=== PATIENT | female | born 1945 | race Caucasian/White ===

== ENCOUNTER → 2016-10-31 | Outpatient (CLI) | payer OTHER ==
[~2016-10-31] MED LIST: AMLO-114 PO; ASPCH81X PO; ATEN50TA8 PO; ATOR-22 PO; CHOL20009 PO; FRS/40 PO; GABA-113 PO; GLIP-197 PO; LISI10TA PO; LORA-741 PO; MELO15TA4 PO; PRLSR20 PO; SITA25TA PO
--- NOTE | 2016-10-31 15:37 | MAMMOGRAPHY REPORT ---
BILATERAL DIGITAL SCREENING MAMMOGRAM WITH CAD: 10/31/2016 CLINICAL HISTORY: Routine screening. Patient has no complaints. TECHNIQUE: Current study was also evaluated with a Computer Aided Detection (CAD) system. Bilateral CC and MLO views were obtained. COMPARISON: Comparison is made to exams dated: 10/31/2015 mammogram, 10/28/2014 mammogram, 10/26/2013 lelia mogram, 10/24/2012 mammogram, 05/08/2012 specimen, and 05/08/2012 localization - [facility]ter. BREAST COMPOSITION: There are scattered areas of fibroglandular density in both breasts. FINDINGS: No suspicious masses, calcifications, or areas of architectural distortion are noted in ei ther breast. There has been no significant interval change compared to prior exams. IMPRESSION: ACR BI-RADS CATEGORY 1: NEGATIVE There is no mammographic evidence of malignancy. A 1 year screening mammogram is recommended. The pa tient will receive written notification of the results. Approximately 10% of breast cancers are not detected with mammography. A negative mammographic report should not delay biopsy if a clinically suggestive mass is present. Sunitha Sellers M.D. /:10/31/2016 10:28:51 Carbide Tool Die Maker: Indira MERCADO)(Cat), letter sent: Normal 1/2 BI-RADS Code: ACR BI-RADS Category 1: Negative
== END | disposition home or self-care (01) ==
LOC: C.MAMM 09:59
PROVIDERS: ATTEND Internal Medicine
DX: Z12.31 Encounter for screening mammogram for malignant neoplasm of breast (principal)

== ENCOUNTER → 2016-11-06 | Day surgery (SDC) | payer OTHER ==
[2016-10-29 10:03] VITALS: Ht 160 cm; Wt 122.7 kg
[~2016-11-06] VITALS: Ht 160 cm; Wt 122.7 kg
[~2016-11-06] MED LIST changes: +LIDOCAINE HCL 2% 2 ML VIAL (20MG/ML) ONE; +ONDANSETRON INJ 2 MG/ML 2 ML VIAL ONE; +PROPOFOL IV EMULSION 10 MG/ML 20 ML VIAL IV ONE; +SODIUM CHLORIDE 0.9% 500ML 500 ML IV ONE
[2016-11-06 08:57] VITALS: TEMP 36.5
--- NOTE | 2016-11-06 09:28 | Endo History and Physical ---
History & Physical Date of Service: Nov 06, 2016. Chief Complaint: Screening Referring Physician: Dr.Manisha Foreman History of Present Illness patient for screening colonoscopy Past Medical History Diabetes, Arthritis, Anxiety, High Cholesterol, Hypertension Past Surgical History Hx Cardiac Surgery: Yes (CARDIAC CATH-NO STENTS) Hx Abdominal Surgery: Yes (NOMI, TUBAL LIGATION) Hx Post-Op Nausea and Vomiting: Yes (SEVERE NAUSEA) Hx Cancer Surgery: No Hx Thoracic Surgery: No Hx Orthopedic: Yes (RT WRIST CYST REMOVAL, LEFT KNEE ARTHROSCOPY) Hx Urinary Tract Surgery: Yes (BILATERAL KIDNEY STENTS ) Family History Colon CA Social History Smoking Status: Never Smoker Hx Substance Use: No Hx Alcohol Use: No Allergies Coded Allergies: Allopurinol (Unverified Allergy, Mild, RASH, 10/29/16) Penicillins (Unverified Allergy, Mild, HIVES, 10/29/16) Sulfamethoxazole w/Trimethoprim (Verified Allergy, Unknown, ANXIETY AND HALLUCINATION, 10/29/16) Current Medications Reported Home Medications Medications Dose Route/Sig Max Daily Dose Days Date Category Vitamin D (Cholecalciferol) 2,000 Unit Tab 1 Tab PO QAM 10/29/16 Reported Aspirin Chewable (Aspirin) 81 Mg Chew 81 Mg PO HS 10/29/16 Reported Prilosec (Omeprazole) 20 Mg Capcr 20 Mg PO DAILY PRN 10/29/16 Reported Norvasc (Amlodipine Besylate) 10 Mg Tab 10 Mg PO QAM 10/29/16 Reported Mobic (Meloxicam) 15 Mg Tab 15 Mg PO DAILY PRN 10/29/16 Reported Lasix (Furosemide) 40 Mg Tab 1.5 Tab PO QAM 10/29/16 Reported Prinivil (Lisinopril) 10 Mg Tab 10 Mg PO QAM 10/29/16 Reported Tenormin (Atenolol) 50 Mg Tab 1.5 Tab PO QAM 10/29/16 Reported Ativan (Lorazepam) 0.5 Mg Tab 0.5 Mg PO DAILY PRN 10/29/16 Reported Glipizide Er (Glipizide) 5 Mg Tab 1 Tab PO QAM 90 10/29/16 Reported Januvia (Sitagliptin) 25 Mg Tab 25 Mg PO QAM 10/29/16 Reported Lipitor (Atorvastatin Calcium) 20 Mg Tab 20 Mg PO HS 10/29/16 Reported Neurontin (Gabapentin) 300 Mg Cap 300 Mg PO TID 10/29/16 Reported Vital Signs Weight (Kilograms): 122.73 Height (Feet): 5 Height (Inches): 3 Date Time Temp Pulse Resp B/P (MAP) Pulse Ox O2 Delivery O2 Flow Rate FiO2 11/06/16 08:57 36.5 56 18 155/64 (94) 96 Room Air Physical Exam General Appearance: no apparent distress Respiratory/Chest: Auscultation: breath sounds normal Cardiovascular: Heart Auscultation: RRR Abdomen: Inspection & Palpation: soft, no tenderness, guarding & rebound Assessment and Plan stable for colonoscopy
--- NOTE | 2016-11-06 09:53 | Discharge Instructions ---
Endoscopy Patient Instructions Date / Procedure(s) Performed Nov 06, 2016. Colonoscopy Allergy Information Coded Allergies: Allopurinol (Unverified Allergy, Mild, RASH, 10/29/16) Penicillins (Unverified Allergy, Mild, HIVES, 10/29/16) Sulfamethoxazole w/Trimethoprim (Verified Allergy, Unknown, ANXIETY AND HALLUCINATION, 10/29/16) Discharge Date / Findings Nov 06, 2016. diverticulosis Provider Instructions Activity Restrictions - No exercising or heavy lifting for 24 hours. - Do not drink alcohol the day of the procedure. - Do not drive a car or operate machinery until the day after the procedure. - Do not make any important decisions or sign important papers in 24 hours after the procedure. Following Day: - Return to full activity which may include returning to work/school. Diet Start your diet with liquids and light foods (jello, soup, juice, toast). Then eat your usual diet if not nauseated. Treatment For Common After Affects For mild abdominal pain, bloating, or excessive gas: - Rest - Eat lightly - Lie on right side Follow-Up Information Follow-up with Dr.Manisha Foreman as scheduled Anesthesia Information What You Should Know You have had a procedure that required some medicine to reduce anxiety and discomfort. This treatment is called moderate sedation. After receiving the treatment, you may be sleepy, but you will be able to breathe on your own. The effects of the treatment may last for several hours. Follow these instructions along with Activity/Diet recommendations noted above: * Do NOT do anything where dizziness or clumsiness would be dangerous. * Rest quietly at home today, then you can be up and about tomorrow. * Have a responsible person stay with you the rest of today. * You may have had an I.V. today. If so, you may take the dressing off later today. Recommendations Call your doctor if: * Trouble breathing * Continuous vomiting for more than 24 hours * Temperature above 101 degrees * Severe abdominal pain or bloating * Pain not relieved by pain medicine ordered * There is increased drainage or redness from any incision * A large amount of rectal bleeding greater than 2-3 tablespoons. (If you had a polyp/s removed or have hemorrhoids, a small amount of blood - from the rectum is to be expected.) * You have any unanswered questions or concerns. IN THE EVENT OF A SERIOUS EMERGENCY, GO TO THE NEAREST EMERGENCY ROOM Your discharge instructions were prepared by provider Scott Tucker. Patient Instructions Signature Page Makenna Escobar Patient (or Guardian) Signature/Date: I have read and understand the instructions given to me by my caregivers. Caregiver/RN/Doctor Signature/Date: The above-named patient and/or guardian has received patient instructions on this date. + Original Patient Signature Page (only) stays with chart. Please make copy for patient.
--- NOTE | 2016-11-06 09:57 | GI REPORT ---
Procedure Date: 11/06/2016 9:29 AM Procedure: Colonoscopy Indications: Screening for colorectal malignant neoplasm Medicines: See the Anesthesia note for documentation of the administered medications Complications: No immediate complications. Estimated Blood Loss: Estimated blood loss: none. Procedure: Pre-Anesthesia Assessment: - Prior to the procedure, a History and Physical was performed, and patient medications, allergies and sensitivities were reviewed. The patient's tolerance of previous anesthesia was reviewed. - The risks and benefits of the procedure and the sedation options and risks were discussed with the patient. All questions were answered and informed consent was obtained. - Patient identification and proposed procedure were verified prior to the procedure by the physician and the nurse. The procedure was verified in the pre-procedure area. - Pre-procedure physical examination revealed no contraindications to sedation. - After reviewing the risks and benefits, the patient was deemed in satisfactory condition to undergo the procedure. After I obtained informed consent, the scope was passed under direct vision. Throughout the procedure, the patient's blood pressure, pulse, and oxygen saturations were monitored continuously. The scope was introduced through the anus and advanced to the cecum, identified by appendiceal orifice and ileocecal valve. The colonoscopy was performed without difficulty. The patient tolerated the procedure well. The quality of the bowel preparation was good. Findings: The perianal and digital rectal examinations were normal. Multiple small-mouthed diverticula were found in the sigmoid colon and in the descending colon. The exam was otherwise without abnormality on direct and retroflexion views. Impression: - Diverticulosis in the sigmoid colon and in the descending colon. - The examination was otherwise normal on direct and retroflexion views. - No specimens collected. Recommendation: - Repeat colonoscopy in 10 years for screening purposes. - Discharge patient to home. Scott Tucker M.D. Scott Tucker MD 11/06/2016 9:56:03 AM This report has been signed electronically. Note Initiated On: 11/06/2016 9:29 AM I attest to the content of the Intraoperative Record and orders documented therein, exceptions below
--- NOTE | 2016-11-06 10:15 | Anesthesiology Progress Note ---
Anesthesia Post Op Note Date & Time Nov 06, 2016 at 10:15 Vital Signs Pain Intensity: 0 Vital Signs Past 12 Hours Date Time Temp Pulse Resp B/P (MAP) Pulse Ox O2 Delivery O2 Flow Rate FiO2 11/06/16 10:10 46 18 161/64 (96) 95 Room Air 11/06/16 09:55 45 20 121/53 (75) 96 Room Air 11/06/16 08:57 36.5 56 18 155/64 (94) 96 Room Air Notes Mental Status: alert / awake / arousable, participated in evaluation Pt Amnestic to Procedure: Yes Nausea / Vomiting: adequately controlled Pain: adequately controlled Airway Patency, RR, SpO2: stable & adequate BP & HR: stable & adequate Hydration State: stable & adequate Anesthetic Complications: no major complications apparent
[2016-11-06 10:25] VITALS: BP 142/68; PULSE 45; O2SAT 96
== END | disposition home or self-care (01) ==
LOC: C.GI 08:33
PROVIDERS: ATTEND Internal Medicine Gastroenterology
DX: Z12.11 Encounter for screening for malignant neoplasm of colon (principal); K57.30 Diverticulosis of large intestine without perforation or abscess without bleeding; I10 Essential (primary) hypertension; E78.00 Pure hypercholesterolemia, unspecified; E11.9 Type 2 diabetes mellitus without complications; F41.9 Anxiety disorder, unspecified; Z80.0 Family history of malignant neoplasm of digestive organs; Z79.82 Long term (current) use of aspirin; Z79.899 Other long term (current) drug therapy

== ENCOUNTER → 2017-11-12 | Outpatient (CLI) | payer OTHER ==
[~2017-11-12] MED LIST changes: +ACET-1311 PO; -AMLO-114 PO; +AMLO10TA3 PO; -ATEN50TA8 PO; +CALC0.2510 PO; -FRS/40 PO; -LIDOCAINE HCL 2% 2 ML VIAL (20MG/ML) ONE; +LSX20 PO; +MELO-84 PO; -MELO15TA4 PO; -ONDANSETRON INJ 2 MG/ML 2 ML VIAL ONE; -PROPOFOL IV EMULSION 10 MG/ML 20 ML VIAL IV ONE; -SODIUM CHLORIDE 0.9% 500ML 500 ML IV ONE; +TPRSR50 PO
--- NOTE | 2017-11-14 07:54 | MAMMOGRAPHY REPORT ---
BILATERAL DIGITAL SCREENING MAMMOGRAM TOMOSYNTHESIS WITH CAD: 11/12/2017 CLINICAL HISTORY: Routine screening. Patient has no complaints. TECHNIQUE: The study was acquired using full field digital technology and interpreted from soft copy. Breast tomosynthesis in addition to standard 2D mammography was performed. Current study was also ev aluated with a Computer Aided Detection (CAD) system. COMPARISON: Comparison is made to exams dated: 10/31/2015 mammogram, 10/28/2014 mammogram, 10/26/2013 lelia mogram, 10/24/2012 mammogram, 03/24/2012 mammogram, and 09/11/2011 mammogram - [facility] er. BREAST COMPOSITION: There are scattered areas of fibroglandular density in both breasts. FINDINGS: There is a possible small cluster of microcalcifications in the lateral, middle one third o f the right breast, best seen on the cc view, for which additional spot magnification views are recom mended. There is a 5.4 mm focal asymmetry in the upper outer anterior left breast, for which additio nal targeted ultrasound and possible additional mammographic views are recommended. There is evidence of prior left breast surgery, for a biopsy-proven papilloma. Other scattered nodul arity is stable comparing to numerous prior mammograms. No other suspicious mass, architectural disto rtion or cluster of microcalcifications is seen. IMPRESSION: ACR BI-RADS CATEGORY 0: INCOMPLETE EVALUATION: NEED ADDITIONAL IMAGING EVALUATION The possible small cluster of microcalcifications in the lateral right breast, and 5.4 mm focal asymm etry in the upper outer anterior left breast need additional imaging evaluation. The patient will be called to schedule an appointment. Some breast cancers are not detected with mammography. A negative mammographic report should not fer y biopsy if a clinically suggestive mass is present. Aida Carr M.D. ay/:11/12/2017 22:00:30 Marketing And Communications Officer: RT Pratibha(Medhat)(Cat)(BD), [facility] letter sent: Addl Imaging 0 BI-RADS Code: ACR BI-RADS Category 0: Incomplete Evaluation: Need Additional Imaging Evaluation
== END | disposition home or self-care (01) ==
LOC: C.MAMM 13:40
PROVIDERS: ATTEND Internal Medicine
DX: Z12.31 Encounter for screening mammogram for malignant neoplasm of breast (principal); R92.8 Other abnormal and inconclusive findings on diagnostic imaging of breast

== ENCOUNTER → 2017-11-26 | Outpatient (CLI) | payer OTHER ==
--- NOTE | 2017-11-26 14:45 | MAMMOGRAPHY REPORT ---
BILATERAL DIGITAL DIAGNOSTIC MAMMOGRAM TOMOSYNTHESIS AND LEFT ULTRASOUND: 11/26/2017 CLINICAL HISTORY: Callback from screening mammography for possible microcalcifications in the lateral right breast and a 5 mm focal asymmetry in the upper outer left breast. TECHNIQUE: Spot magnification right cc and ML views; spot compression tomosynthesis left CC and MLO v iews were obtained. COMPARISON: Comparison is made to exams dated: 11/12/2017 mammogram, 10/31/2016 mammogram, 10/31/2015 m ammogram, 10/28/2014 mammogram, 10/26/2013 mammogram, and 10/24/2012 mammogram - [facility]. Ultrasound of both breasts was performed. BREAST COMPOSITION: There are scattered areas of fibroglandular density in both breasts. FINDINGS: The spot compression tomosynthesis views of the left breast demonstrate diffuse nodularity of the middle and anterior one third of the breast. There is an irregular 6.4 x 5.5 x 5.1 mm mass wi th possible associated faint microcalcification in the upper outer anterior left breast corresponding with the mammographic focal asymmetry. Further evaluation with ultrasound was performed. The remai nder of the nodularity in the left breast is stable dating back to prior mammograms. Spot magnification views of the right breast demonstrate faint microcalcifications in the lateral, mi ddle one third of the breast best seen in the CC projection. Although some of the calcifications salbador ear vascular in nature, there is a faint, 4 mm grouping of microcalcifications in the lateral right b reast that was not definitely seen on prior exams and is indeterminate. Definitive characterization with a right breast stereotactic guided biopsy is recommended. Would recommend the CC projection, gi jennyfer that this is how the calcifications are best visualized. Targeted ultrasound was performed throughout the lateral left breast. Numerous fusiform, oval and lo bulated isoechoic to hypoechoic solid-appearing masses are seen. In particular, there is a fusiform circumscribed possible intraductal mass in the 1:00 periareolar left breast measuring 7.6 x 2.9 x 1.9 mm. Another lobulated isoechoic to hypoechoic solid-appearing mass in the 2:00 left breast, 1 cm fr om the nipple measures 3.4 x 3.3 x 3.6 mm. An oval gently lobulated parallel hypoechoic solid-appear ing mass in the 3:00 left breast, 6 cm from the nipple measures 4.1 x 1.9 x 3.6 mm. A lobulated, boone erating wide isoechoic to slightly hypoechoic solid-appearing mass in the 3:30 left breast, 2 cm from the nipple measures 4.7 x 4.2 x 6.8 mm. This is thought to correspond with the mammographic focal a symmetry/mass. In the 5:00 left breast, 2 cm from the nipple, another gently lobulated hypoechoic so lid mass measures 4.6 x 3.6 x 5.2 mm. All of these masses could represent benign fibroadenomas and/or papillomas, possibly papillomatosis g iven the numerous nature of the masses. However, ultrasound-guided core biopsy is recommended for th e largest mass in the 330 left breast, thought to correspond with the increasingly prominent mammogra phic focal asymmetry, likely containing internal calcifications. IMPRESSION: ACR BI-RADS CATEGORY 4: SUSPICIOUS, ULTRASOUND ACR BI-RADS CATEGORY 4: SUSPICIOUS 1. Ultrasound-guided core biopsy is recommended for an indeterminant lobulated 6.8 mm solid mass in the 330 left breast, 2 cm from the nipple, thought to correspond with the mammographic focal asymmetr y identified in the upper outer anterior left breast. 2. There are numerous additional solid-appearing masses throughout the lateral left breast on target ed ultrasound and pending benign pathology results, recommend a short interval follow-up left diagnos tic mammogram and targeted ultrasound in the 1:00, 2:00, 3:00 and 5:00 axes to ensure stability in 6 months. 3. There is a faint 4 mm grouping of amorphous microcalcifications in the lateral right breast, not definitely seen on prior mammograms, that is indeterminate. Stereotactic guided biopsy is recommende d for further characterization, likely in the CC projection as this is how the calcifications are bes t visualized, they are not as well seen in the ML plane. These results and recommendations were discussed with the patient at the time of the exam. She tenta tively scheduled bilateral breast biopsies prior to leaving our department. Some breast cancers are not detected with mammography. A negative mammographic report should not fer y biopsy if a clinically suggestive mass is present. Aida Carr M.D. ay/:11/26/2017 12:48:08 Inverform Machine Operator: RT Oliver(R)(M), [facility] [address] [facility]; Marisabel Bolden [facility] letter sent: Abnormal 07/25 OVERALL STUDY BIRADS: 4 Suspicious abnormality
== END | disposition home or self-care (01) ==
LOC: C.MAMM 09:32
PROVIDERS: ATTEND Internal Medicine
DX: R92.8 Other abnormal and inconclusive findings on diagnostic imaging of breast (principal); N63.20 Unspecified lump in the left breast, unspecified quadrant; R92.0 Mammographic microcalcification found on diagnostic imaging of breast

== ENCOUNTER → 2017-12-09 | Outpatient (CLI) | payer OTHER ==
--- NOTE | 2017-12-09 14:00 | Discharge Instructions ---
Discharge Instructions Procedure Procedure Date: Dec 09, 2017. Reason for visit: Us Core Bx,Left Mass,Right Calcs. Discharge Discharge Date: Dec 09, 2017. Discharge Diagnosis: post right breast stereotactic guided biopsy and left breast ultrasound guided core biopsy Instructions Activity Recommendations: Additional Limitations (see below) Return to School/Work: no limitations Recommended Home Diet: No Limitations Provider Instructions: ACTIVITY RECOMMENDATIONS: * No lifting, pushing, pulling or exercising the affected side for three days. RETURN TO SCHOOL/WORK: * You may return to work/school after the procedure, but do not perform any strenuous activities for 24 to 48 hours. MEDICATIONS: * Tylenol (two 325 mg) every four to six hours if needed for mild pain (if not allergic to Tylenol). DIET: * Resume previous diet. SPECIAL CARE INSTRUCTIONS: * Keep biopsy site dry for 24 hours. May shower after 24 hours, but do not soak (bathe) incision. May remove Tegaderm (plastic patch) 24 hours after procedure * Leave the steri-strips on for one week. Allow the steri-strips to fall off by themselves. If not off after one week, you may remove them. You may place a Bandaid crosswise over the strips, if desired. * Apply ice 10 minutes on and 10 minutes off as needed. * Wear a bra at bedtime to sleep more comfortably for 2-3 days. * Your referring physician should have the results after approximately 5 to 7 business days. * Call for unusual bleeding, fever, drainage, etc or if you have any questions call [phone] during normal business hours or after hours call Dr Carr, . FOLLOW UP VISIT: Follow-up with Referring Physician as scheduled. Allergies Coded Allergies: Allopurinol (Unverified Allergy, Mild, RASH, 09/26/17) Penicillins (Unverified Allergy, Mild, HIVES, 09/26/17) Sulfamethoxazole w/Trimethoprim (Verified Allergy, Unknown, ANXIETY AND HALLUCINATION, 09/26/17) Jackie Perales Recommendations: Call your doctor if: * Temperature above 101 degrees * Pain not relieved by pain medicine ordered * There is increased drainage or redness from any incision * You have any unanswered questions or concerns. Your Doctors Instructions noted above were prepared by provider Aida Carr. Patient Signature Section: Patient Instructions Signature Page Makenna Escobar Patient (or Guardian) Signature/Date: I have read and understand the instructions given to me by my caregivers. Caregiver/RN/Doctor Signature/Date: The above-named patient and/or guardian has received patient instructions on this date. + Original Patient Signature Page (only) stays with chart. Please make copy for patient.
--- NOTE | 2017-12-10 07:00 | MAMMOGRAPHY REPORT ---
STEREOTACTIC GUIDED BIOPSY RIGHT BREAST: 12/09/2017 CLINICAL HISTORY: 72-year-old woman initially called back from screening mammography for an increasin gly prominent focal asymmetry in the lateral, anterior left breast and possible clustered calcificati ons in the lateral right breast. Diagnostic workup demonstrated a lobulated solid-appearing mass in t 3:30 left breast thought to correspond with the mammographic finding, and an indeterminate cluster of calcifications in the lateral right breast. Patient presents for bilateral breast biopsies. COMPARISON: Comparison is made to exams dated: 11/26/2017 mammogram, 11/26/2017 ultrasound, 11/12/2017 ma mmogram, 10/31/2016 mammogram, 10/31/2015 mammogram, and 10/26/2013 mammogram - [facility]. PATIENT CONSENT: After explaining the risks, benefits and alternatives of the procedure to the patien t, informed consent was obtained both verbally and in writing. Specific risks include: Bleeding, inf ection, puncture of adjacent structure, pain, nontarget biopsy, sampling error, metal allergy and med ication reaction. PROCEDURE DESCRIPTION: A time-out was performed and the right breast was confirmed as the site of ban reotactic biopsy. The patient was placed prone on the stereotactic biopsy table and the breast was pl aced in CC from above referred compression. A pcb design engineer image was obtained that demonstrated the clustere d microcalcifications in question. They are amenable to sterotactic biopsy. Then +15 and -15 stere o pair images were obtained. The calcifications were targeted utilizing the coordinates obtained by [facility] computer. The skin was prepped with Betadine. 1% Lidocaine with and without epinipherine was admi nistered as local anesthesia. A small skin incision was made. Through the incision, the needle was i nserted to the depth determined by the computer. 7 samples were obtained using a [employer] 9-gauge vacuum-assisted biopsy device. The specimen radiograph demonstrated several new accounts banking representative microcalci fications, therefore, a metallic marker was placed at the biopsy site. There was no immediate complic ation. Hemostasis was achieved after several minutes of manual compression. The samples were sent to pathology in an appropriately labeled container. Postprocedure CC and ML tomosynthesis views of both breasts were obtained. With regard to the right breast and the stereotactic biopsy, there is a new dumbbell-shaped biopsy marker clip and no signific ant hematoma in the upper outer approximate 9:00 middle one third of the breast at the site of the bi opsied calcifications in question. An ultrasound-guided core biopsy in the left 3:30 breast was performed during the same appointment an d please refer to a separate report for full detail. IMPRESSION: STEREOTACTIC GUIDED BIOPSY 1. Status post right breast stereotactic biopsy of a faint cluster of microcalcifications in the 9:0 0 middle one third of the breast. 2. An ultrasound-guided core biopsy in the left 3:30 breast was also performed during the same appoin tment. Please refer to a separate report for full detail. 3. Biopsy marker clips deployed properly in each breast and no significant postbiopsy hematoma is no ludivina on the post procedure mammograms. 4. Pathology results will be reviewed prior to making further management decisions regarding the [facility] er subcentimeter solid-appearing mass is identified in the left breast on targeted ultrasound during diagnostic workup. Aida Carr M.D. ay/:12/09/2017 14:25:41 Traverse Rod Assembler: Fatmata Moreno, [facility]
--- NOTE | 2017-12-10 07:00 | MAMMOGRAPHY REPORT ---
ULTRASOUND GUIDED BIOPSY LEFT BREAST: 12/09/2017 CLINICAL HISTORY: 72-year-old woman initially called back from screening mammography for an increasin gly prominent nodular asymmetry in the lateral, anterior left breast and possible faint grouped micro calcifications in the lateral right breast. Additional diagnostic workup in the left breast demonstra ludivina a possible sonographic correlate in the 330 axis, for which patient now presents for ultrasound-g uided core biopsy. A right breast stereotactic biopsy was performed during the same appointment for t he right lateral calcifications. COMPARISON: Comparison is made to exams dated: 11/26/2017 mammogram, 11/12/2017 mammogram, 10/31/2016 ma mmogram, 10/31/2015 mammogram, 10/28/2014 mammogram, and 10/26/2013 mammogram - [facility]. PATIENT CONSENT: The procedure, risks and benefits were discussed with the patient and informed conse nt was obtained both verbally and in writing. Specific risks to this procedure include: bleeding, in fection, puncture of adjacent structure, nontarget biopsy, sampling error, pain, metal allergy and me dication reaction. PROCEDURE DESCRIPTION: A time out was performed and the left breast was agreed as the site of ultraso und biopsy. The skin was prepped and draped in the usual sterile fashion. The multilobulated hypoecho ic solid-appearing mass in the 3:30 left breast was identified and chosen as the target for biopsy. S ubcutaneous and intraparenchymal 1% buffered lidocaine, with and without epinephrine, was administere d as local anesthesia. A skin incision was made. Through the incision, 6 samples were taken with a 1 4 gauge Achieve biopsy device. A ribbon shaped metallic marker was placed at the biopsy site. Hemosta sis was achieved after manual compression. The patient tolerated the procedure well and there was no immediate complication. The samples were sent to the pathology department in an appropriately labele d container. Postprocedure left CC and ML tomosynthesis images were obtained. The postprocedure mammograms demons trate a new ribbon-shaped biopsy marker clip in the 3:00 to 330 anterior left breast, aligning with t he prominent nodular asymmetry in question, confirming mammographicsonographic correlation. IMPRESSION: ULTRASOUND GUIDED BIOPSY Status post ultrasound-guided core biopsy of an indeterminate multilobulated solid appearing mass in the 330 left breast, with biopsy marker clip placed at the site. The biopsy clip aligns with the lelia mographic focal asymmetry in question that was increasingly prominent compared to prior exams. Further recommendations will be made once pathology results are available, but would likely recommend a six-month follow-up targeted ultrasound for other subcentimeter solid-appearing masses identified at prior diagnostic workup. (06/10/2018) The patient will receive notification of the biopsy results from her referring physician. Aida Carr M.D. ay/:12/09/2017 14:17:36 Percussion Teacher: Fatmata Moreno, [facility]
== END | disposition home or self-care (01) ==
LOC: C.MAMM 12:17
PROVIDERS: ATTEND Internal Medicine
DX: N63.20 Unspecified lump in the left breast, unspecified quadrant (principal); R92.0 Mammographic microcalcification found on diagnostic imaging of breast; N60.82 Other benign mammary dysplasias of left breast; N60.21 Fibroadenosis of right breast; N60.11 Diffuse cystic mastopathy of right breast

== ENCOUNTER 2024-01-06 01:37 | Inpatient (IN) ==
--- OUTSIDE RECORDS SUMMARY | 2024-01-06 01:51 | External Medical Summary | Summary of Care ---
Author Name Unknown Organization [facility] Address [address] [place] [address] Phone [phone] Care Team Providers Care Staff Physical Therapist Name Role Phone Nessa Foreman MD Primary Care Provider + Reason for Visit * Reason Comments eRx-Medication Refill Encounter Details Date Type Department Care Team (Late st Contact Info) Description 12/22/2023 Refill General Internal Medicine [facility] [address] [place] [address] Nessa Foreman MD [address] [place] [address] Spinal stenosis of lumbar region without neurogenic claudication Allergies Active Allergy Reactions Criticality Noted Date Comments Allopurinol Low 01/20/2007 Rash Sulfamethoxazole-Trimet hoprim 10/06/2015 Hallucinations, anxiety Metformin Diarrhea,Edema Other 09/06/2023 Penicillins 12/24/2000 hives documented as of this encounter (statuses as of 12/24/2023) Medications Medication Sig Dispensed Refills Start Date End Date Status VITAMIN D 2000 UNITS PO CAPS Take 1 Capsule by mouth in the morning. 30 Cap 5 2 Active ASPIRIN EC 81 MG PO TBECIndications:b lood flow Take 1 Tablet by mouth daily. Active Blood Glucose Monitoring Suppl (Sassor ULTRA SYSTEM) W/DEVICE KITIndications:DM type 2, goal A1c below 7 Use up to four times a day as directed/E11.9 1 Kit 0 5 Active ONETOUCH DELICA LANCETS 33G MISCIndications:T ype 2 diabetes mellitus with hemoglobin A1c goal of less than 7.0% (HCC) Test up to twice daily DX E 11.9 100 Each 5 9 Active Acetaminophen 500 MG Oral TabletIndications :headache Take 1 Tablet by mouth every 6 hours as needed for Pain. 2 tabs as needed Active Omeprazole 20 MG Oral Capsule Delayed Release (PriLOSEC)Indicat ions:Gastroesopha geal reflux disease without esophagitis TAKE 1 CAPSULE BY MOUTH ONCE DAILY ONE HOUR BEFORE THE FIRST MEAL OF THE DAY 90 Capsule 1 2 Active Zoster Vac Recomb Adjuvanted 50 MCG/0.5ML Intramuscular Suspension Reconstituted (Shingrix) Inject 0.5 mL into a large muscle now and repeat dose in 60 to 180 days 1 Each 1 2 Active OneTouch Ultra In Vitro Strip (Glucose Blood)Indications :Type 2 diabetes mellitus with hemoglobin A1c goal of less than 7.0% (HCC) USE 1 STRIP TO CHECK GLUCOSE ONCE TO TWICE DAILY DIRECTED 200 Strip 3 2 Active OneTouch Verio w/Device Kit Use as directed . 1 Kit 1 2 Active OneTouch UltraSoft Lancets Use as directed 4 times a day as needed for Hyperglycemia (high sugar). Use up to four times a day as directed 100 Each 3 2 Active OneTouch Verio In Vitro Strip (Glucose Blood) Use up to 4 times a day E11.9 100 Strip 11 3 Active Calcitriol 0.25 MCG Oral Capsule (Rocaltrol)Indica tions:CKD (chronic kidney disease) stage 3, GFR 30-59 ml/min ([facility]) TAKE 1 CAPSULE BY MOUTH ONCE DAILY ON SATURDAY AMD SATURDAY ONLY 24 Capsule 3 3 Active Meloxicam 15 MG Oral Tablet (Mobic)Indication s:Gouty arthropathy, chronic, without tophi TAKE 1 TABLET BY MOUTH ONCE DAILY NEEDED FOR JOINT PAIN 30 Tablet 3 4 Active Atorvastatin Calcium 20 MG Oral Tablet (Lipitor)Indicati ons:Dyslipidemia, goal LDL below 100 TAKE 1 TABLET BY MOUTH AT BEDTIME 90 Tablet 3 4 Active Losartan Potassium 100 MG Oral Tablet (Cozaar)Indicatio ns:HTN, goal below 140/90 Take 1 tablet by mouth once daily 90 Tablet 1 4 Active amLODIPine Besylate 5 MG Oral Tablet (Norvasc) TAKE 1 TABLET BY MOUTH IN THE MORNING 90 Tablet 1 4 Active Metoprolol Succinate ER 25 MG Oral Tablet Extended Release 24 Hour (Toprol XL) Take two tablets in AM and one tablet in evening. 90 Tablet 6 4 Active Ozempic (1 MG/DOSE) 4 MG/3ML Subcutaneous Solution Pen-injector (Semaglutide (1 MG/DOSE))Indicati ons:Type 2 diabetes mellitus with hemoglobin A1c goal of less than 7.0% ([facility]) Inject 1 mg under the skin once a week. On Sundays 9 mL 3 4 Active LORazepam 0.5 MG Oral Tablet (Ativan) TAKE 1 TABLET BY MOUTH THREE TIMES DAILY NEEDED FOR ANXIETY 90 Tablet 4 Active Colchicine 0.6 MG Oral TabletIndications :Gouty arthropathy, chronic, without tophi,Kidney disease, chronic, stage III (GFR 30-59 ml/min) ([facility]) TAKE 1 TABLET BY MOUTH IN THE MORNING NEEDED FOR GOUT 30 Tablet 4 Active Loratadine 10 MG Oral Tablet (Claritin)Indicat ions:Acute non-recurrent frontal sinusitis,Vertigo Take 1 Tablet by mouth in the morning. 20 Tablet 4 Active Fluticasone Propionate 50 MCG/ACT Nasal Suspension (Flonase)Indicati ons:Acute non-recurrent frontal sinusitis,Vertigo Administer 2 Sprays into each nostril in the morning. 9.9 mL 4 Active Furosemide 20 MG Oral Tablet (Lasix)Indication s:HTN, goal below 140/90 Take 3 Tablets by mouth in the morning. 4 Active Triamcinolone Acetonide 0.025 % External Ointment (Aristocort)Indic ations:Contact dermatitis USE SPARINGLY NIGHTLY FOR TWO WEEKS, THEN NEEDED. LITTLE IS EFFECTIVE 60 g 3 4 Active Gabapentin 400 MG Oral Capsule (Neurontin)Indica tions:Abnormal CT of the abdomen,Spinal stenosis of lumbar region without neurogenic claudication Take two capsules by mouth in the morning and one in the evening 270 Capsule 1 4 Active traMADol HCl 50 MG Oral Tablet (Ultram)Indicatio ns:Spinal stenosis of lumbar region without neurogenic claudication Take 1 Tablet by mouth every 6 hours as needed for Pain, Severe. 14 Tablet 4 Active traMADol HCl 50 MG Oral Tablet (Ultram)Indicatio ns:Spinal stenosis of lumbar region without neurogenic claudication Take 1 Tablet by mouth every 6 hours as needed for Pain, Severe. 14 Tablet 4 12/24/19 24 Discontinued documented as of this encounter (statuses as of 12/24/2023) Active Problems Problem Noted Date Diagnosed Date Morbid obesity with BMI of 40.0-44.9, adult 07/22 Hypertensive heart and kidne y disease with chronic diastolic congestive heart failure and stage 3a chronic kidney disease 08/13/2023 History of malignant neoplasm of endometrium Type 2 diabetes mellitus wit h stage 3b chronic kidney disease, without long-term current use of insulin 01/14/2023 Chronic kidney disease, stage 3b 10/04/2020 Overview: Per CKD protocol Hypertensive kidney disease with stage 3b chronic kidney disease 08/30/2020 Overview: Per CKD protocol Primary open-angle glaucoma, right eye, moderate stage 02/24/2020 ATILIO (generalized anxiety disorder) 02/24/2020 Advanced directives, counseling/discussion 08/25 Gastroesophageal reflux disease without esophagi tis 02/10/2018 Hx MRSA infection 04/24/2016 Renal artery stenosis 09/02/2015 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 Type 2 diabetes mellitus wit h hemoglobin A1c goal of less than 7.0% Overview: ICD-10 update of inactive term HTN, goal below 140/90 documented as of this encounter (statuses as of 12/24/2023) Resolved Problems Problem Noted Date Diagnosed Date Resolved Date Endometrial cancer 07/19/2022 Cancer Staging:Pathologic stage from 11/27/2016:FIGO Stage IA(pT1a, pN0, cM0) - Signed by Ronald Oliver MD on 07/20/2022 Overview: History 12/19/20 CHANNEL MANAGER/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 [employer] Other*[id number] 06/19/2010 05/29/2016 Overview: Study Titile: Gen[employer] Markers for Patients with Cardiovascular Disease Project # [id number] PI: Tara Purcell MD Please call [phone] with study related questions Hand Dermatitis 09/24/2007 01/10/2017 Gout 09/09/2006 10/17/2009 Dermatitis 02/07/2005 09/24/2007 Dyslipidemia, goal to be determined 05/08/2004 04/06/2009 Overview: Per Lipid Taxonomy. Vascular complications of renal artery 06/25/2002 01/10/2017 documented as of this encounter (statuses as of 12/24/2023) Immunizations Name Administration Dates Next Due COVID-19 mRNA, LNP-s, No Pre serve, 2-Dose Series (Moderna) 06/23/2020,05/26/2020 COVID-19, mRNA, LNP-s, PF, B ooster, 100mcg/0.5mg (Moderna) 04/03/2021 Covid-19, Mrna, Lnp-s, Pf, B ivalent, 30 Mcg, IM, 12 yrs and above (Plum Baby) 03/08/2022 Pneumococcal Conjugate Vacc, 13 Valent (Prevnar) 08/05/2014 Pneumococcal Polysaccharide PPV23 (Pneumovax) 11/01/2011,05/12/2010 Season Influenza, Quad, PF, Adjuvanted, 65+ Yrs, IM (FLUAD) 02/24/2020 Seasonal Influenza, PF, 6 M & above, IM , (FluLaval or Fluzone) 01/13/2019,02/10/2018,01/10/2017 Seasonal Influenza, Quadriva lent Hd (Fluzone Hd) 01/29/2023,03/08/2022,02/15/2021 Seasonal Influenza, Quadriva lent, No Preserve, IM 02/09/2016,01/22/2015 Seasonal Influenza, Trivalen t, (IIV3), PF, (Fluzone) 01/04/2009 Seasonal Influenza, Trivalen t, (IIV3), with Preserv, (Fluzone) 04/28/2014,01/27/2013,02/19/2012,01/03,01/11/2010,02/27/2008,02/17/2007 ,02/22/2006 TD, Preservative Free 02/10/2018 TDAP, Age 7 and older, IM (Adacel) 01/01/2008 Varicella Zoster Vaccine (Adult) 12/03/2011 documented as of this encounter Social History Tobacco Use Types Packs/Day Years Used Date Smoking Tobacco: Never Smokeless Tobacco: Never Alcohol Use Standard Drinks/Week Comments No 0 (1 standard drink = 0.6 oz pur e alcohol) PHQ-2 Answer Date Recorded PHQ Adult Total Score 0 09/06/2020 Hunger Vital Sign Answer Date Recorded Worried About Running Out of Food in the Last Ye ar Never true 02/26/2019 Ran Out of Food in the Last Year Never true 02/26/2019 Utilities Answer Date Recorded Do you have trouble paying y our heating, water, or electric bill? (Adult - for ages 18 years and over) Not on file 10/08/2023 Is your family able to pay t he heat, water, or electric bill? (Household - for ages 0-17 years) Not on file 10/08/2023 Does your family have access to good internet? (Household - for ages 0-17 years) Not on file 10/08/2023 Social Connections Answer Date Recorded How often do you feel lonely or isolated from those around you? (Adult - for ages 18 years and over) Not on file 10/08/2023 Sex and Gender Information Value Date Recorded Sex Assigned at Female 08/22/2018 9:48 AM EDT Gender Identity Female 08/22/2018 9:48 AM EDT Sexual Orientation Straight 08/22/2018 9: 48 AM EDT Job Start Date Occupation Industry Not on file Not on file Not on file documented as of this encounter Miscellaneous Notes * Telephone Encounter - Nessa Foreman MD - 12/24/2023 4:35 PM EDTSigned Prescriptions: Disp Refills traMADol HCl 50 MG Oral Tablet (Ultram) 14 Tab*0 Sig: Take 1 Tablet by mouth every 6 hours as needed for Pain, Severe. Authorizing Provider: NESSA FOREMAN * Telephone Encounter - Srinivas Luevano [facility] - 12/24/2023 1:54 PM EDTPending Prescriptions: Disp Refills traMADol HCl 50 MG Oral Tablet (Ultram) 14 Tab*0 Sig: Take 1 Tablet by mouth every 6 hours as needed for Pain, Severe. Electronically signed by Srinivas Luevano [facility] at 12/24/2023 1:54 PM EDT * Telephone Encounter - Srinivas Luevano [facility] - 12/24/2023 1:51 PM EDT I have reviewed the patients controlled substance dispensing history in the Prescription Drug Monitoring Program in compliance with the [facility] regulations before prescribing a controlled substance. PDMP checked on 12/24/2023. Pending Prescriptions: Disp Refills traMADol HCl 50 MG Oral Tablet (Ultram) [*14 Tab*0 Sig: Take 1 Tablet by mouth every 6 hours as needed for Pain, Severe. Last Visit: 08/13/2023 (in office), Visit date not found (telemedicine) Next Visit: 02/18/2024 Date medication was last filled: 11-04-23 Date medication is due for refill: 11-07-23 Pharmacy: [facility] [address] [place] [address] Is this request for a controlled substance? Yes and Urine Drug Screen Not completed Toxicology results: No results found. However, due to the size of the patient record, not all encounters were searched.Please check Results Review for a complete set of results. Please approve if appropriate. Salo De GuzmanPh. Clinical Pharmacist [facility] [address] [place] [address], [address] [place] [address] : [phone] 12/24/2023,1:52 PM Electronically signed by Srinivas Luevano [facility] at 12/24/2023 1:54 PM EDT documented in this encounter Plan of Treatment Upcoming Encounters Date Type Department Care Team (Latest Contact Info) Description 01/02/2024 12:30 PM EDT Telemedicine Orthopaedics [facility] [address] [facility] [place] [address] Rene Bruno PA-C [address] [place] [address] 01/07/2024 2:30 PM EDT Office Visit Cardiology, [facility] [address] [facility] [place] [address] Jerry Cano, [address] [place] [phone] 01/20/2024 1:45 PM EDT Hospital Encounter OR [facility], Operating Room [facility] [address] [place] [phone] James Crain, DO [address] [place] [phone] 01/20/2024 1:45 PM EDT - 01/20/2024 2:10 PM EDT Surgery OR [facility], Operating Room [facility] [address] [place] [phone] James Crain, DO [address] [place] [phone] INJECTION SACROILIAC JOINT 02/18/2024 3:00 PM EDT Office Visit General Internal Medicine [facility] [address] [facility] [place] [address] Nessa Foreman MD [address] [facility] [place] [place] [address] Scheduled Procedures Name Priority Associated Diagnoses Date/Ti me INJECTION SACROILIAC JOINT Inflammation of sacroiliac joint (HCC) 01/20/2024 1:45 PM EDT COLONOSCOPY FLEXIBLE PROXIMAL DIAGNOSTIC Recall Encounter for screening colonoscopy Health Maintenance Due Date Last Done Comments Adult Wellness Visit 11/16/2011 Zoster Vaccines (2 of 3) 01/28/2012 12/03/2011 Depression Screening 09/06/2021 09/06/2020 Diabetic Eye Exam 09/21/2023 09/20/2022, , 06/20/2021, Additional history exists COVID-19 Vaccine ( season) 2023 03/08/2022, 04/03/2021, 06/23/2020, Additional history exists Influenza Vaccine (FLU shot) (#1) 2023 01/29/2023, 03/08/2022, 02/15/2021, Additional history exists HbA1c 01/17/2024 07/17/2023, 07/2 09/2022, 07/11/2022, Additional history exists Diabetic Foot Exam 01/30/2024 01/29/2023, 1 05/21/2020, 02/24/2020, Additional history exists GFR 05/27/2024 11/25/2023, 06/21, 11/14/2022, Additional history exists Albumin/Creatinine Ratio 11/24/2024 024, 11/14/2022, 11/23/2021, Additional history exists CKD HGB USE SMARTSET 90968 11/24/202411/24, 11/25/2023, 11/14/2022, Additional history exists CKD PHOS USE SMARTSET 22241 11/24/2024 08/0 08/2023, 07/17/2023, 07/11/2022, Additional history exists DTap/Tdap Vaccines (3 - Td or Tdap) 02/11/2028 02/10/2018, 01/01/2008 Pneumococcal Vaccine: 65+ Years Completed 08/05/2014, 11/01/2011, 05/12/2010 HPV (Gardasil) Vaccine Aged Out No lo nger eligible based on patient's age to complete this topic Hepatitis B Vaccine Aged Out No longe r eligible based on patient's age to complete this topic MENINGOCOCCAL (MENACTRA/MENVEO) Aged Out No longer eligible based on patient's age to complete this topic documented as of this encounter Medical Devices Implanted Type Area Blood Collector Device Identifier Shelf Expiration Date Model / Serial / Lot Stent [id number] Frank [id number] - [id number] Implanted:Qty: 1 on 01/29/2011 at OR [facility] Right: Renal Artery JNJ : [employer] 07/21/2012 [id number] / / [id number] Lens Intraoc 18.5 - [id number] - [id number] Implanted:Qty: 1 on 10/16/2018 by Jhonny Stanton MD at OR [facility] Left: Eye [employer]CH [employer]OM[employer] 02/19/2023 [id number] / [id number] / [id number] Lens Intraoc 18.0 - [id number] - [id number] Implanted:Qty: 1 on 10/28/2018 by Jhonny Stanton MD at OR [facility] Right: Eye [employer]CH [employer]OMB 11/19/2022 [id number] / [id number] / documented as of this encounter Visit Diagnoses Diagnosis 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 * Full Code Date Activated Date Inactivated Comments 11/27/2016 6:00 AM 11/27/2016 11:13 AM This order re flects the patients wishes and were consensually agreed upon. * Full Code Date Activated Date Inactivated Comments 01/29/2011 11:40 AM 02/01/2011 6:13 PM This orde r reflects the patients wishes and were consensually agreed upon. Question Answer Comments Discussion of Advance Directives occurred with: Patient Care Teams Staff Physical Therapist Relationship Specialty Start Date End Date Nessa Foreman MD [address] [place] [address] PCP - General Internal Medicine 05/11/10 documented as of this encounter
--- OUTSIDE RECORDS SUMMARY | 2024-01-06 01:51 | External Medical Summary | Summary of Care ---
Author Name Unknown Organization [facility] Address [address] [facility] [place] [address] Phone [phone] Care Team Providers Care Police Judge Name Role Phone Nessa Foreman MD Primary Care Provider + Encounter Details Date Type Department Care Team (Late st Contact Info) Description 12/06/2023 12:30 PM EDT Medication Management Lisa Gonsalez [facility] [address] [place] [address] Pharmacist, Lisa Gonsalez [facility] [address] [place] [address] Referred for management of medication therapy* Allergies Active Allergy Reactions Criticality Noted Date Comments Allopurinol Low 01/20/2007 Rash Sulfamethoxazole-Trimet hoprim 10/06/2015 Hallucinations, anxiety Metformin Diarrhea,Edema Other 09/06/2023 Penicillins 12/24/2000 hives documented as of this encounter (statuses as of 12/09/2023) Medications Medication Sig Dispensed Refills Start Date End Date Status VITAMIN D 2000 UNITS PO CAPS Take 1 Capsule by mouth in the morning. 30 Cap 5 2 Active ASPIRIN EC 81 MG PO TBECIndications:bl ood flow Take 1 Tablet by mouth daily. Active Blood Glucose Monitoring Suppl ([email or web address].com SYSTEM) W/DEVICE KITIndications:DM type 2, goal A1c below 7 Use up to four times a day as directed/E11.9 1 Kit 0 5 Active ONETOUCH DELICA LANCETS 33G MISCIndications:Ty pe 2 diabetes mellitus with hemoglobin A1c goal of less than 7.0% (HCC) Test up to twice daily DX E 11.9 100 Each 5 9 Active Acetaminophen 500 MG Oral TabletIndications: headache Take 1 Tablet by mouth every 6 hours as needed for Pain. 2 tabs as needed Active Omeprazole 20 MG Oral Capsule Delayed Release (PriLOSEC)Indicati ons:Gastroesophage al reflux disease without esophagitis TAKE 1 CAPSULE BY MOUTH ONCE DAILY ONE HOUR BEFORE THE FIRST MEAL OF THE DAY 90 Capsule 1 2 Active Zoster Vac Recomb Adjuvanted 50 MCG/0.5ML Intramuscular Suspension Reconstituted (Shingrix) Inject 0.5 mL into a large muscle now and repeat dose in 60 to 180 days 1 Each 1 2 Active OneTouch Ultra In Vitro Strip (Glucose Blood)Indications: Type 2 diabetes mellitus with hemoglobin A1c goal of less than 7.0% (HCC) USE 1 STRIP TO CHECK GLUCOSE ONCE TO TWICE DAILY DIRECTED 200 Strip 3 2 Active OneTouch Verio w/Device Kit Use as directed . 1 Kit 1 2 Active CallistoTVTouch UltraSoft Lancets Use as directed 4 times a day as needed for Hyperglycemia (high sugar). Use up to four times a day as directed 100 Each 3 2 Active OneTouch Verio In Vitro Strip (Glucose Blood) Use up to 4 times a day E11.9 100 Strip 11 3 Active Calcitriol 0.25 MCG Oral Capsule (Rocaltrol)Indicat ions:CKD (chronic kidney disease) stage 3, GFR 30-59 ml/min (HCC) TAKE 1 CAPSULE BY MOUTH ONCE DAILY ON SATURDAY AMD SATURDAY ONLY 24 Capsule 3 3 Active Meloxicam 15 MG Oral Tablet (Mobic)Indications :Gouty arthropathy, chronic, without tophi TAKE 1 TABLET BY MOUTH ONCE DAILY NEEDED FOR JOINT PAIN 30 Tablet 3 4 Active Atorvastatin Calcium 20 MG Oral Tablet (Lipitor)Indicatio ns:Dyslipidemia, goal LDL below 100 TAKE 1 TABLET BY MOUTH AT BEDTIME 90 Tablet 3 4 Active Losartan Potassium 100 MG Oral Tablet (Cozaar)Indication s:HTN, goal below 140/90 Take 1 tablet by [...] 4 MG/3ML Subcutaneous Solution Pen-injector (Semaglutide (1 MG/DOSE))Indicatio ns:Type 2 diabetes mellitus with hemoglobin A1c goal of less than 7.0% ([facility]) Inject 1 mg under the skin once a week. On Sundays 9 mL 3 4 Active LORazepam 0.5 MG Oral Tablet (Ativan) TAKE 1 TABLET BY MOUTH THREE TIMES DAILY NEEDED FOR ANXIETY 90 Tablet 4 Active traMADol HCl 50 MG Oral Tablet (Ultram)Indication s:Spinal stenosis of lumbar region without neurogenic claudication Take 1 Tablet by mouth every 6 hours as needed for Pain, Severe. 14 Tablet 4 Active Colchicine 0.6 MG Oral TabletIndications: Gouty arthropathy, chronic, without tophi,Kidney disease, chronic, stage III (GFR 30-59 ml/min) ([facility]) TAKE 1 TABLET BY MOUTH IN THE MORNING NEEDED FOR GOUT 30 Tablet 4 Active Loratadine 10 MG Oral Tablet (Claritin)Indicati ons:Acute non-recurrent frontal sinusitis,Vertigo Take 1 Tablet by mouth in the morning. 20 Tablet 4 Active Fluticasone Propionate 50 MCG/ACT Nasal Suspension (Flonase)Indicatio ns:Acute non-recurrent frontal sinusitis,Vertigo Administer 2 Sprays into each nostril in the morning. 9.9 mL 4 Active Furosemide 20 MG Oral Tablet (Lasix)Indications :HTN, goal below 140/90 Take 3 Tablets by mouth in the morning. 4 Active Triamcinolone Acetonide 0.025 % External Ointment (Aristocort)Indica tions:Contact dermatitis USE SPARINGLY NIGHTLY FOR TWO WEEKS, THEN NEEDED. LITTLE IS EFFECTIVE 60 g 3 4 Active Gabapentin 400 MG Oral Capsule (Neurontin)Indicat ions:Abnormal CT of the abdomen,Spinal stenosis of lumbar region without neurogenic claudication Take two capsules by mouth in the morning and one in the evening 270 Capsule 1 4 Active ProAir HFA 108 (90 Base) MCG/ACT Inhalation Aerosol SolutionIndication s:Wheezing Inhale 2 Puffs by mouth every 4 hours as needed for Wheezing. 18 g 3 2 12/06/19 24 Discontinu ed(Medicat ion/Dose Changed) Triamcinolone Acetonide 0.025 % External Ointment (Aristocort)Indica tions:Contact dermatitis USE SPARINGLY NIGHTLY FOR TWO WEEKS, THEN NEEDED. LITTLE IS EFFECTIVE 60 g 3 3 12/06/19 24 Discontinu ed(Refill) Gabapentin 400 MG Oral Capsule (Neurontin)Indicat ions:Abnormal CT of the abdomen,Spinal stenosis of lumbar region without neurogenic claudication TAKE 1 CAPSULE BY MOUTH THREE TIMES DAILY (MORNING, NOON, AND BEFORE BEDTIME) 270 Capsule 1 4 12/06/19 24 Discontinu ed(Refill) Meclizine HCl 25 MG Oral Tablet (Antivert)Indicati ons:Acute non-recurrent frontal sinusitis,Vertigo Take 1 Tablet by mouth 3 times a day as needed for Dizziness. 30 Tablet 4 12/06/19 24 Discontinu ed(Medicat ion/Dose Changed) documented as of this encounter (statuses as of 12/09/2023) Active Problems Problem Noted Date Diagnosed Date [...] as of this encounter (statuses as of 12/09/2023) Resolved Problems Problem Noted Date Diagnosed Date Resolved Date Endometrial cancer 07/19/2022 Cancer Staging:Pathologic stage from 11/27/2016:FIGO Stage IA(pT1a, pN0, cM0) - Signed by Ronald Oliver MD on 07/20/2022 Overview: History 12/19/20 COUNSELING SERVICES DIRECTOR/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 [employer] Other*[id number] 06/19/2010 05/29/2016 Overview: Study Titile: Gen[employer] Markers for Patients with Cardiovascular Disease Project # [id number] PI: Tara Purcell MD Please call [phone] with study related questions Hand Dermatitis 09/24/2007 01/10/2017 Gout 09/09/2006 10/17/2009 Dermatitis 02/07/2005 09/24/2007 Dyslipidemia, goal to be determined 05/08/2004 04/06/2009 Overview: Per Lipid Taxonomy. Vascular complications of renal artery 06/25/2002 01/10/2017 documented as of this encounter (statuses as of 12/09/2023) Immunizations Name Administration Dates Next Due COVID-19 mRNA, LNP-s, No Pre serve, 2-Dose Series (Moderna) 06/23/2020,05/26/2020 COVID-19, mRNA, LNP-s, PF, B ooster, 100mcg/0.5mg (Moderna) 04/03/2021 Covid-19, Mrna, Lnp-s, Pf, B ivalent, 30 Mcg, IM, 12 yrs and above (Pfizer) 03/08/2022 Pneumococcal Conjugate Vacc, 13 Valent (Prevnar) 08/05/2014 Pneumococcal Polysaccharide PPV23 (Pneumovax) 11/01/2011,05/12/2010 Season Influenza, Quad, PF, Adjuvanted, 65+ Yrs, IM (FLUAD) 02/24/2020 Seasonal Influenza, PF, 6 M & above, IM , (FluLaval or Fluzone) 01/13/2019,02/10/2018,01/10/2017 Seasonal Influenza, Quadriva lent Hd (Fluzone Hd) 01/29/2023,03/08/2022,02/15/2021 Seasonal Influenza, Quadriva lent, No Preserve, IM 02/09/2016,01/22/2015 Seasonal Influenza, Split, I IV3, No Preserve, Inj 01/04/2009 Seasonal Influenza, Split, I IV3, With Preserve, Inj 04/28/2014,01/27/2013,02/19/2012,01/03,01/11/2010,02/27/2008,02/17/2007 ,02/22/2006 TD, Preservative Free 02/10/2018 TDAP, [...] on file documented as of this encounter Progress Notes * Paris Eli, [facility] - 12/06/2023 12:49 PM EDT Makenna Escobar is a 78 year old female. Objective: Review of patient's allergies indicates: Allergen Reactions Bactrim [Sulfamethoxazole-Trimethoprim] Hallucinations, anxiety Metformin Diarrhea and Edema Other Penicillins hives Allopurinol Rash Current Outpatient Medications - WARNING: List may be incomplete due to filtering Medication Sig Dispense Refill Gabapentin 400 MG Oral Capsule (Neurontin) Take two capsules by mouth in the morning and one in theevening 270 Capsule 1 Triamcinolone Acetonide 0.025 % External Ointment (Aristocort) USE SPARINGLY NIGHTLY FOR TWO WEEKS,THEN NEEDED. LITTLE IS EFFECTIVE 60 g 3 Furosemide 20 MG Oral Tablet (Lasix) Take 3 Tablets by mouth in the morning. LORazepam 0.5 MG Oral Tablet (Ativan) TAKE 1 TABLET BY MOUTH THREE TIMES DAILY NEEDED FOR ANXIETY 90 Tablet 0 Ozempic (1 MG/DOSE) 4 MG/3ML Subcutaneous Solution Pen-injector (Semaglutide (1 MG/DOSE)) Inject 1 mg under the skin once a week. On Sundays 9 mL 3 Metoprolol Succinate ER 25 MG Oral Tablet Extended Release 24 Hour (Toprol XL) Take two tablets in AM and one tablet in evening. 90 Tablet 6 amLODIPine Besylate 5 MG Oral Tablet (Norvasc) TAKE 1 TABLET BY MOUTH IN THE MORNING 90 Tablet 1 Losartan Potassium 100 MG Oral Tablet (Cozaar) Take 1 tablet by mouth once daily 90 Tablet 1 Atorvastatin Calcium 20 MG Oral Tablet (Lipitor) TAKE 1 TABLET BY MOUTH AT BEDTIME 90 Tablet 3 Meloxicam 15 MG Oral Tablet (Mobic) TAKE 1 TABLET BY MOUTH ONCE DAILY NEEDED FOR JOINT PAIN 30 Tablet 3 Calcitriol 0.25 MCG Oral Capsule (Rocaltrol) TAKE 1 CAPSULE BY MOUTH ONCE DAILY ON SATURDAY AMD SATURDAY ONLY 24 Capsule 3 Omeprazole 20 MG Oral Capsule Delayed Release (PriLOSEC) TAKE 1 CAPSULE BY MOUTH ONCE DAILY ONE HOUR BEFORE THE FIRST MEAL OF THE DAY 90 Capsule 1 Acetaminophen 500 MG Oral Tablet Take 1 Tablet by mouth every 6 hours as needed for Pain. 2 tabs asneeded ASPIRIN EC 81 MG PO TBEC Take 1 Tablet by mouth daily. VITAMIN D 2000 UNITS PO CAPS Take 1 Capsule by mouth in the morning. 30 Cap 5 Fluticasone Propionate 50 MCG/ACT Nasal Suspension (Flonase) Administer 2 Sprays into each nostril in the morning. 9.9 mL 0 Loratadine 10 MG Oral Tablet (Claritin) Take 1 Tablet by mouth in the morning. 20 Tablet 0 Colchicine 0.6 MG Oral Tablet TAKE 1 TABLET BY MOUTH IN THE MORNING NEEDED FOR GOUT 30 Tablet 0 traMADol HCl 50 MG Oral Tablet (Ultram) Take 1 Tablet by mouth every 6 hours as needed for Pain, Severe. 14 Tablet 0 OneTouch Verio In Vitro Strip (Glucose Blood) Use up to 4 times a day E11.9 100 Strip 11 OneTouch UltraSoft Lancets Use as directed 4 times a day as needed for Hyperglycemia (high sugar). Use up to four times a day as directed 100 Each 3 OneTouch Verio w/Device Kit Use as directed . 1 Kit 1 OneTouch Ultra In Vitro Strip (Glucose Blood) USE 1 STRIP TO CHECK GLUCOSE ONCE TO TWICE DAILY DIRECTED 200 Strip 3 Zoster Vac Recomb Adjuvanted 50 MCG/0.5ML Intramuscular Suspension Reconstituted (Shingrix) Inject 0.5 mL into a large muscle now and repeat dose in 60 to 180 days 1 Each 1 ONETOUCH DELICA LANCETS 33G MISC Test up to twice daily DX E 11.9 100 Each 5 Blood Glucose Monitoring Suppl (eSKY.pl ULTRA SYSTEM) W/DEVICE KIT Use up to four times a day as directed/E11.9 1 Kit 0 Immunization History Administered Date(s) Administered COVID-19 mRNA, LNP-s, No Preserve, 2-Dose Series (Moderna) 05/26/2020, 06/23/2020 COVID-19, mRNA, LNP-s, PF, Booster, 100mcg/0.5mg (Moderna) 04/03/2021 Covid-19, Mrna, Lnp-s, Pf, Bivalent, 30 Mcg, IM, 12 yrs and above (Pfizer) 03/08/2022 Influenza, Whole Virus 01/20/1998, 03/27/1999, 02/27/2001 Pneumococcal Conjugate Vacc, 13 Valent (Prevnar) 08/05/2014 Pneumococcal Polysaccharide PPV23 (Pneumovax) 05/12/2010, 11/01/2011 Season Influenza, Quad, PF, Adjuvanted, 65+ Yrs, IM (FLUAD) 02/24/2020 Seasonal Influenza, PF, 6 M & above, IM , (FluLaval or Fluzone) 01/10/2017, 02/10/2018, 01/13/2019 Seasonal Influenza, Quadrivalent Hd (Fluzone Hd) 02/15/2021, 03/08/2022, 01/29/2023 Seasonal Influenza, Quadrivalent, No Preserve, IM 01/22/2015, 02/09/2016 Seasonal Influenza, Split, IIV3, No Preserve, Inj 01/04/2009 Seasonal Influenza, Split, IIV3, With Preserve, Inj 02/11/2002, 02/01/2003, 02/12/2005, 02/22/2006,02/17/2007, 02/27/2008, 01/11/2010, 01/03/2011, 02/19/2012, 01/27/2013, 04/28/2014 TD, Preservative Free 02/10/2018 TDAP, Age 7 and older, IM (Adacel) 01/01/2008 Varicella Zoster Vaccine (Adult) 12/03/2011 TMR Interventions TMR Drug Therapy - Naloxone (Opioid Therapy): LORAZEPAM TAB 0.5MG;TRAMADOL HCL TAB 50MG TMR Patient Education - Safe Medication Use (Opioid Therapy): TRAMADOL HCL TAB 50MG Incomplete Encounter MTPs No medication therapy recommendations to display Complete Encounter MTPs Referred for management of medication therapy Current Medication: traMADol HCl 50 MG Oral Tablet (Ultram) Rationale: Untreated condition - Needs additional medication therapy - Indication Recommendation: Provide Education Status: Declined per Patient Current Medication: traMADol HCl 50 MG Oral Tablet (Ultram) Rationale: Patient Education - Needs Medication Assessment - Adherence Recommendation: Provide Education Status: Patient Agreed Assessment & Plan Indication, effectiveness, safety and convenience of her medications were reviewed today. The patient's medical conditions were assessed, evaluated, and deemed meeting goals of drug therapy, with thefollowing exceptions. Additional Notes: Pt taking a bit more gabapentin than recommended based on renal function, ok per provider and nephro, pt to monitor for SE No other questions or concerns, up to date on labs and screenings Summary Time Spent: 1-15 min Supervising pharmacist who provided the service: Paris Eli RPh [place]le Information Who was the recipient of the CMR service: beneficiary Language Template for the Patient Takeaway: Georgian I attest that I have reviewed and updated the patient's conditions, allergies, and medications to the best of my ability. Patient provided medication list gathered by: Alma Linda RPh 12/09/2023, 9:27 AM documented in this encounter Miscellaneous Notes * MTM To-Do-List - Paris Eli RPh - 12/09/2023 9:26 AM EDT Images from the original note were not included. What we talked about: What I should do: The importance of taking your medication as prescribed Your medicine works best when taken as prescribed. It can be hard to remember to take daily medications. Consider making it a part of your daily routine. Pair taking your medication with something you do every day, like brushing your teeth or eating a meal. Consider setting daily alarms to help remind yourself when it is time to take your medicine. Using a pill box can also help you organize your medicines. Pill boxes allow you to fill each day slot with your daily medicine and help you track when your next dose is due. What we talked about: What I should do: Your gabapentin Please try taking as little gabapentin as needed, and monitor for any drowsiness, dizziness or fatigue after taking and contact your doctor right away for a lower dose * MTM Personal Medication List - Paris Eli RPh - 12/09/2023 9:22 AM EDT Medication How I take it Why I use it Prescriber Acetaminophen 500 MG Oral Tablet Take 1 tablet by mouth every 6 hours as needed for pain. Pain Self amLODIPine Besylate 5 MG Oral Tablet (Norvasc) Take 1 tablet by mouth in the morning Blood pressureNessa Foreman MD ASPIRIN EC 81 MG PO TBEC Take 1 tablet by mouth daily. Heart Self Atorvastatin Calcium 20 MG Oral Tablet (Lipitor) Take 1 tablet by mouth at bedtime Cholesterol Errol Anguiano PA-C Calcitriol 0.25 MCG Oral Capsule (Rocaltrol) Take one capsule by mouth on Saturday and Saturday only General health Esteban Okeefe MD Furosemide 20 MG Oral Tablet (Lasix) Take 3 tablets by mouth in the morning. Water pill Esteban Okeefe MD Gabapentin 400 MG Oral Capsule (Neurontin) Take two capsules by mouth in the morning and one in theevening Nerve pain Nessa Foreman MD LORazepam 0.5 MG Oral Tablet (Ativan) Take 1 tablet by mouth three times daily as needed for anxiety Anxiety Nessa Foreman MD Losartan Potassium 100 MG Oral Tablet (Cozaar) Take 1 tablet by mouth once daily Blood pressure Nessa Foreman MD Meloxicam 15 MG Oral Tablet (Mobic) Take 1 tablet by mouth once daily as needed for joint pain PainNessa Foreman MD Metoprolol Succinate ER 25 MG Oral Tablet Extended Release 24 Hour (Toprol XL) Take two tablets by mouth in the morning and one tablet in evening. Heart Jerry O Kopinski, DO Omeprazole 20 MG Oral Capsule Delayed Release (PriLOSEC) Take 1 capsule by mouth once daily one hour before the first meal of the day Heartburn Nessa Foreman MD Ozempic (1 MG/DOSE) 4 MG/3ML Subcutaneous Solution Pen-injector (Semaglutide (1 MG/DOSE)) Inject 1 mg under the skin once a week. On sundays Diabetes Nessa Foreman MD Triamcinolone Acetonide 0.025 % External Ointment (Aristocort) Apply topically to affected area, sparingly nightly for two weeks, then as needed. As little as is effective Skin condition Nessa Foreman MD VITAMIN D 2000 UNITS PO CAPS Take 1 capsule by mouth in the morning. General health Asia Albarran DO documented in this encounter Plan of Treatment Upcoming Encounters Date Type Department Care Team (Latest Contact Info) Description 01/02/2024 12:30 PM EDT Telemedicine Orthopaedics [facility] [address] [id number] Rene Bruno PA-C [employer] [address] [place] [place] [id number] 01/07/2024 2:30 PM EDT Office Visit Cardiology, [facility] [address] [id number] Jerry Cano, DO [address] [place] [address] 01/20/2024 1:45 PM EDT Hospital Encounter [facility], Operating Room [facility] [address] [phone] James Crain, [address] [place] [phone] 01/20/2024 1:45 PM EDT - 01/20/2024 2:10 PM EDT Surgery OR [facility], Operating Room [facility] [address] [place] [phone] James Crain DO [address] [place] [id number] INJECTION SACROILIAC JOINT 02/18/2024 3:00 PM EDT Office Visit General Internal Medicine Pat Pereira [place] [address] [facility] [place] [address] Nessa Foreman MD [address] [facility] [address] [place] [id number] Scheduled Procedures Name Priority Associated Diagnoses Date/Ti me INJECTION SACROILIAC JOINT Inflammation of sacroiliac joint (HCC) 01/20/2024 1:45 PM EDT COLONOSCOPY FLEXIBLE PROXIMAL DIAGNOSTIC Recall Encounter for screening colonoscopy Health Maintenance Due Date Last Done Comments Adult Wellness Visit 11/16/2011 Zoster Vaccines (2 of 3) 01/28/2012 12/03/2011 Depression Screening 09/06/2021 09/06/2020 COVID-19 Vaccine ( season) 2022 03/08/2022, 04/03/2021, 06/23/2020, Additional history exists Diabetic Eye Exam 09/21/2023 09/20/2022, , 06/20/2021, Additional history exists Influenza Vaccine (FLU shot) (#1) 2023 01/29/2023, 03/08/2022, 02/15/2021, Additional history exists HbA1c 01/17/2024 07/17/2023, 10/21, 07/11/2022, Additional history exists Diabetic Foot Exam 01/30/2024 01/29/2023, 1 05/21/2020, 02/24/2020, Additional history exists GFR 05/27/2024 11/25/2023, 06/21, 11/14/2022, Additional history exists Albumin/Creatinine Ratio 11/24/2024 024, 11/14/2022, 11/23/2021, Additional history exists CKD HGB USE SMARTSET 48578 11/24/202411/24, 11/25/2023, 11/14/2022, Additional history exists CKD PHOS USE SMARTSET 32881 11/24/2024 08/0 08/2023, 07/17/2023, 07/11/2022, Additional history exists DTaP,Tdap,and Td Vaccines (3 - Td or Tdap) 02/11/2028 [...] this encounter Medical Devices Implanted Type Area Transportation Sales Consultant Device Identifier Shelf Expiration Date Model / Serial / Lot Stent [id number] - [id number] Implanted:Qty: 1 on 01/29/2011 at OR [facility] Right: Renal Artery JNJ : [employer] 07/21/2012 [id number] / / [id number] Lens Intraoc 18.5 - [id number] - [id number] Implanted:Qty: 1 on 10/16/2018 by Jhonny Stantno MD at OR [facility] Left: Eye [employer]OM[employer] 02/19/2023 [id number] / [id number] / [id number] Lens Intraoc 18.0 - [id number] - [id number] Implanted:Qty: 1 on 10/28/2018 by Jhonny Stanton MD at OR [facility] Right: Eye [employer]OM[employer] 11/19/2022 [id number] / [id number] / documented as of this encounter Visit Diagnoses Diagnosis Referred for management of medication therapy- Primary Encounter for long-term (current) use of other medications Inflammation of sacroiliac joint (HCC) Sacroiliitis, not [...] Advance Directives occurred with: Patient Care Teams Police Judge Relationship Specialty Start Date End Date Nessa Foreman MD [address] [place] [address] PCP - General Internal Medicine 05/11/10 documented as of this encounter
--- OUTSIDE RECORDS SUMMARY | 2024-01-06 01:51 | External Medical Summary | Summary of Care ---
Author Name Unknown Organization [facility] Address [address] [place] [address] Phone [phone] Care Team Providers Care Measuring Clerk Name Role Phone Nessa Foreman MD Primary Care Provider + Encounter Details Date Type Department Care Team (Late st Contact Info) Description 01/04/2024 Patient Reported Data Patient Survey Ortho [facility] Allergies Active Allergy Reactions Criticality Noted Date Comments Allopurinol Low 01/20/2007 Rash Sulfamethoxazole-Trimet hoprim 10/06/2015 Hallucinations, anxiety Metformin Diarrhea,Edema Other 09/06/2023 Penicillins 12/24/2000 hives documented as of this encounter (statuses as of 01/04/2024) Medications Medication Sig Dispensed Refills Start Date End Date Status VITAMIN D 2000 UNITS PO CAPS Take 1 Capsule by mouth in the morning. 30 Cap 5 11/29/2011 Active ASPIRIN EC 81 MG PO TBECIndications:blo od flow Take 1 Tablet by mouth daily. Active Blood Glucose Monitoring Suppl (ONETOUCH ULTRA SYSTEM) W/DEVICE KITIndications:DM type 2, goal A1c below 7 Use up to four times a day as directed/E11.9 1 Kit 0 02/04/2015 Active ONETOUCH DELICA LANCETS 33G MISCIndications:Typ e 2 diabetes mellitus with hemoglobin A1c goal of less than 7.0% (HCC) Test up to twice daily DX E 11.9 100 Each 5 09/16/2018 Active Acetaminophen 500 MG Oral TabletIndications:h eadache Take 1 Tablet by mouth every 6 hours as needed for Pain. 2 tabs as needed Active Omeprazole 20 MG Oral Capsule Delayed Release (PriLOSEC)Indicatio ns:Gastroesophageal reflux disease without esophagitis TAKE 1 CAPSULE BY MOUTH ONCE DAILY ONE HOUR BEFORE THE FIRST MEAL OF THE DAY 90 Capsule 1 10/10/2021 Active Zoster Vac Recomb Adjuvanted 50 MCG/0.5ML Intramuscular Suspension Reconstituted (Shingrix) Inject 0.5 mL into a large muscle now and repeat dose in 60 to 180 days 1 Each 1 12/04/2021 Active OneTouch Ultra In Vitro Strip (Glucose Blood)Indications:T ype 2 diabetes mellitus with hemoglobin A1c goal of less than 7.0% ([facility]) USE 1 STRIP TO CHECK GLUCOSE ONCE TO TWICE DAILY DIRECTED 200 Strip 3 01/24/2022 Active OneTouch Verio w/Device Kit Use as directed . 1 Kit 1 04/18/2022 Active Avega SystemsTouch UltraSoft Lancets Use as directed 4 times a day as needed for Hyperglycemia (high sugar). Use up to four times a day as directed 100 Each 3 04/18/2022 Active OneTouch Verio In Vitro Strip (Glucose Blood) Use up to 4 times a day E11.9 100 Strip 11 05/23/2022 Active Calcitriol 0.25 MCG Oral Capsule (Rocaltrol)Indicati ons:CKD (chronic kidney disease) stage 3, GFR 30-59 ml/min (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 TAKE 1 TABLET BY MOUTH ONCE DAILY NEEDED FOR JOINT PAIN 30 Tablet 3 05/07/2023 Active Atorvastatin Calcium 20 MG Oral Tablet (Lipitor)Indication s:Dyslipidemia, goal LDL below 100 TAKE 1 TABLET BY MOUTH AT BEDTIME 90 Tablet 3 07/05/2023 Active Losartan Potassium 100 MG Oral Tablet (Cozaar)Indications :HTN, goal below 140/90 Take 1 tablet by mouth once daily 90 Tablet 1 07/06/2023 Active amLODIPine Besylate 5 MG Oral Tablet (Norvasc) TAKE 1 TABLET BY MOUTH IN THE MORNING 90 Tablet 1 07/06/2023 Active Metoprolol Succinate ER 25 MG Oral Tablet Extended Release 24 Hour (Toprol XL) Take two tablets in AM and one tablet in evening. 90 Tablet 6 07/25/2023 Active Ozempic (1 MG/DOSE) 4 MG/3ML Subcutaneous Solution Pen-injector (Semaglutide (1 MG/DOSE))Indication s:Type 2 diabetes mellitus with hemoglobin A1c goal of less than 7.0% ([facility]) Inject 1 mg under the skin once a week. On Sundays 9 mL 3 08/15/2023 Active LORazepam 0.5 MG Oral Tablet (Ativan) TAKE 1 TABLET BY MOUTH THREE TIMES DAILY NEEDED FOR ANXIETY 90 Tablet 10/23/2023 Active Colchicine 0.6 MG Oral TabletIndications:G outy arthropathy, chronic, without tophi,Kidney disease, chronic, stage III (GFR 30-59 ml/min) ([facility]) TAKE 1 TABLET BY MOUTH IN THE MORNING NEEDED FOR GOUT 30 Tablet 11/07/2023 Active Loratadine 10 MG Oral Tablet (Claritin)Indicatio ns:Acute non-recurrent frontal sinusitis,Vertigo Take 1 Tablet by mouth in the morning. 20 Tablet 11/10/2023 Active Fluticasone Propionate 50 MCG/ACT Nasal Suspension (Flonase)Indication s:Acute non-recurrent frontal sinusitis,Vertigo Administer 2 Sprays into each nostril in the morning. 9.9 mL 11/10/2023 Active Furosemide 20 MG Oral Tablet (Lasix)Indications: HTN, goal below 140/90 Take 3 Tablets by mouth in the morning. 11/25/2023 Active Triamcinolone Acetonide 0.025 % External Ointment (Aristocort)Indicat ions:Contact dermatitis USE SPARINGLY NIGHTLY FOR TWO WEEKS, THEN NEEDED. LITTLE IS EFFECTIVE 60 g 3 12/06/2023 Active Gabapentin 400 MG Oral Capsule (Neurontin)Indicati ons:Abnormal CT of the abdomen,Spinal stenosis of lumbar region without neurogenic claudication Take two capsules by mouth in the morning and one in the evening 270 Capsule 1 12/06/2023 Active traMADol HCl 50 MG Oral Tablet (Ultram)Indications :Spinal stenosis of lumbar region without neurogenic claudication Take 1 Tablet by mouth every 6 hours as needed for Pain, Severe. 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 [employer] Other*[id number] 06/19/2010 05/29/2016 Overview: Study Titile: [employer] Markers for Patients with Cardiovascular Disease Project # [id number] PI: Tara Purcell MD Please call [phone] with study related questions Hand Dermatitis 09/24/2007 01/10/2017 Gout 09/09/2006 10/17/2009 Dermatitis 02/07/2005 09/24/2007 Dyslipidemia, goal to be determined 05/08/2004 04/06/2009 Overview: Per Lipid Taxonomy. Vascular complications of renal artery 06/25/2002 01/10/2017 documented as of this encounter (statuses as of 01/04/2024) Immunizations Name Administration Dates Next Due COVID-19 [...] on file documented as of this encounter Plan of Treatment Upcoming Encounters Date Type Department Care Team (Latest Contact Info) Description 01/07/2024 2:30 PM EDT Office Visit Cardiology, [facility] [address] [place] [address] Jerry Cano, DO [address] [place] [phone] 01/16/2024 11:30 AM EDT [facility] [address] [place] [address] Rene Bruno PA-C [address] [place] [address] 01/20/2024 1:45 PM EDT Hospital Encounter OR [facility], Operating Room [facility] [address] [place] [phone] James Crain, DO [address] [place] [phone] 01/20/2024 1:45 PM EDT - 01/20/2024 2:10 PM EDT Surgery OR [facility], Operating Room [facility] [address] [place] [phone] James Crain, DO [address] [place] [phone] INJECTION SACROILIAC JOINT 01/23/2024 11:30 AM EDT Office Visit Orthopaedics [facility] [address] [place] [address] Rene Bruno PA-C [address] [place] [address] 01/27/2024 9:30 AM EDT [facility] [address] [place] [address] 01/30/2024 11:30 AM EDT Office Visit Orthopaedics [facility] [address] [facility] [place] [address] Rene Bruno PA-C [address] [place] [address] [place] [address] 02/05/2024 12:30 PM EDT Office Visit Vascular Surgery, [facility] [address] [facility] [place] [address] Sergei Frost MD [address] [facility] [place] [address] 02/18/2024 3:00 PM EDT Office Visit General Internal Medicine [facility] [address] [place] [address] Nessa Foreman MD [address] [facility] [place] [address] Scheduled Procedures Name Priority Associated Diagnoses Date/Ti [...] 02/15/2021, Additional history exists HbA1c 01/17/2024 07/17/2023, 07/09/2022, 07/11/2022, Additional history exists Diabetic Foot Exam 01/30/2024 01/29/2023, 1 05/21/2020, 02/24/2020, Additional history exists GFR 05/27/2024 11/25/2023, 06/21, 11/14/2022, Additional history exists Albumin/Creatinine Ratio 11/24/2024 024, 11/14/2022, 11/23/2021, Additional history exists CKD HGB USE SMARTSET 23901 11/24/202411/24, 11/25/2023, 11/14/2022, Additional history exists CKD PHOS USE SMARTSET 44975 11/24/2024 08/0 08/2023, 07/17/2023, 07/11/2022, Additional history [...] this encounter Medical Devices Implanted Type Area Performance Improvement Specialist Device Identifier Shelf Expiration Date Model / Serial / Lot Stent [id number] Frank [id number] - [id number] Implanted:Qty: 1 on 01/29/2011 at OR [facility] [place] Right: Renal Artery JNJ : [employer] 07/21/2012 [id number] / / [id number] Lens Intraoc 18.5 - [id number] - [id number] Implanted:Qty: 1 on 10/16/2018 by Jhonny Stanton MD at OR [facility] Left: Eye BAUSCH & LOMB 02/19/2023 [id number] / [id number] / [id number] Lens Intraoc 18.0 - [id number] - [id number] Implanted:Qty: 1 on 10/28/2018 by Jhonny Stanton MD at OR [facility] Right: Eye BAUSCH & LOMB 11/19/2022 [id number] / [id number] / documented as of this encounter Advance Directives * Full Code [...] Advance Directives occurred with: Patient Care Teams Measuring Clerk Relationship Specialty Start Date End Date Nessa Foreman MD [address] [place] [address] PCP - General Internal Medicine 05/11/10 documented as of this encounter
--- OUTSIDE RECORDS SUMMARY | 2024-01-06 01:51 | External Medical Summary | Summary of Care ---
Author Name Unknown Organization [facility] Address [address] [facility] [place] [address] Phone [phone] Care Team Providers Care Termite Technician Name Role Phone Nessa Foreman MD Primary Care Provider + Reason for Visit * Reason Onset Date Comments Medication Refill 12/06/2023 Encounter Details Date Type Department Care Team (Late st Contact Info) Description 12/06/2023 Refill General Internal Medicine [facility] [address] [facility] [address] [place] [facility] [address] [place] [address] Contact dermatitis; Abnormal CT of the abdomen; Spinal stenosis of lumbar region without neurogenic claudication Allergies Active Allergy Reactions Criticality Noted Date Comments Allopurinol Low 01/20/2007 Rash Sulfamethoxazole-Trimet hoprim 10/06/2015 Hallucinations, anxiety Metformin Diarrhea,Edema Other 09/06/2023 Penicillins 12/24/2000 hives documented as of this encounter (statuses as of 12/06/2023) Medications Medication Sig Dispensed Refills Start Date [...] hemoglobin A1c goal of less than 7.0% ([facility]) Inject 1 mg under the skin [...] disease, chronic, stage III (GFR 30-59 ml/min) ([facility]) TAKE 1 TABLET BY MOUTH IN [...] the evening 270 Capsule 1 4 Active Triamcinolone Acetonide 0.025 % External [...] Capsule 1 4 12/06/19 24 Discontinu ed(Refill) documented as of this encounter (statuses as of 12/06/2023) Active Problems Problem Noted Date Diagnosed Date [...] as of this encounter (statuses as of 12/06/2023) Resolved Problems Problem Noted Date Diagnosed Date Resolved Date Endometrial cancer 07/19/2022 Cancer Staging:Pathologic stage from 11/27/2016:FIGO Stage IA(pT1a, pN0, cM0) - Signed by Ronald Oliver MD on 07/20/2022 Overview: History 12/19/20 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 [employer] Other*[id number] 06/19/2010 05/29/2016 Overview: Study Titile: [employer] Markers for Patients with Cardiovascular Disease Project # [id number] PI: Tara Purcell MD Please call [phone] with study related questions Hand Dermatitis 09/24/2007 01/10/2017 Gout 09/09/2006 10/17/2009 Dermatitis 02/07/2005 09/24/2007 Dyslipidemia, goal to be determined 05/08/2004 04/06/2009 Overview: Per Lipid Taxonomy. Vascular complications of renal artery 06/25/2002 01/10/2017 documented as of this encounter (statuses as of 12/06/2023) Immunizations Name Administration Dates Next Due COVID-19 [...] Telephone Encounter - Nessa Foreman MD - 12/06/2023 5:26 PM EDTSigned Prescriptions: Disp Refills Triamcinolone Acetonide 0.025 % External O*60 g 3 Sig: USE SPARINGLY NIGHTLY FOR TWO WEEKS, THEN NEEDED. LITTLE IS EFFECTIVEAuthorizing Provider: ENSSA FOREMAN Gabapentin 400 MG Oral Capsule (Neurontin) 270 Ca*1 Sig: Take two capsules by mouth in the morning and one in the eveningAuthorizing Provider: NESSA FOREMAN--------- * Telephone Encounter - [place] [facility] - 12/06/2023 1:[address] Foreman, I completed an annual medication review with Ms. Escobar today. She is in need of a refill on her triamcinolone. She is also taking 1200mg of gabapentin per day, but should be taking 900mg/day based on renal function. Denies drowsiness, dizziness etc, and I counseled her to let you know if this occurs. She is worried that a lower dose will not effectively control her neuropathy. Please advise. Thank you! documented in this encounter Plan of Treatment Upcoming Encounters Date Type Department Care Team (Latest Contact Info) Description 01/02/2024 12:30 PM EDT Telemedicine Orthopaedics [facility] [address] [place] [address] Rene Bruno PA-C [address] [place] [address] 01/07/2024 2:30 PM EDT Office Visit Cardiology, [facility] [address] [place] [address] Jerry Cano, DO [address] [place] [address] 01/20/2024 1:45 PM EDT Hospital Encounter OR [facility], Operating Room [facility] [address] [place] [phone] James Crain DO [address] [place] [address] 01/20/2024 1:45 PM EDT - 01/20/2024 2:10 PM EDT Surgery OR [facility], Operating Room [facility] [address] [place] [phone] James Crain DO [address] [place] [phone] INJECTION SACROILIAC JOINT 02/18/2024 3:00 PM EDT Office Visit General Internal Medicine [facility] [address] [facility] [address] Nessa Foreman MD [address] [place] [address] Scheduled Procedures Name Priority Associated Diagnoses Date/Ti [...] Additional history exists CKD HGB USE SMARTSET 33666 11/24/202411/24, 11/25/2023, 11/14/2022, Additional history exists CKD PHOS USE SMARTSET 46851 11/24/2024 08/0 08/2023, 07/17/2023, 07/11/2022, Additional history [...] this encounter Medical Devices Implanted Type Area Bead Forming Machine Operator Device Identifier Shelf Expiration Date Model / Serial / Lot Stent [id number] Frank [id number] - [id number] Implanted:Qty: 1 on 01/29/2011 at OR [facility] [place] [place] Right: Renal Artery JNJ : [employer]OV[employer] 07/21/2012 [id number] / / [id number] Lens Intraoc 18.5 - [id number] - [id number] Implanted:Qty: 1 on 10/16/2018 by Jhonny Stanton MD at OR [facility] Left: Eye BAUSCH & LOMB 02/19/2023 [id number] / [id number] / [id number] Lens Intraoc 18.0 - [id number] - [id number] Implanted:Qty: 1 on 10/28/2018 by Jhonny Stanton MD at OR [facility] Right: Eye BAUSCH & LOMB 11/19/2022 [id number] / [id number] / documented as of this encounter Visit Diagnoses Diagnosis Contact dermatitis Contact dermatitis and other eczema, due to unspecified cause Abnormal CT of the abdomen Nonspecific (abnormal) findings on radiological and other examination of abdominal area, including retroperitoneum Spinal stenosis of lumbar region without neurogenic [...] Advance Directives occurred with: Patient Care Teams Termite Technician Relationship Specialty Start Date End Date Nessa Foreman MD [address] [place] [address] PCP - General Internal Medicine 05/11/10 documented as of this encounter
--- OUTSIDE RECORDS SUMMARY | 2024-01-06 01:51 | External Medical Summary | Summary of Care ---
Author Name Unknown Organization [facility] Address [address] [place] [address] Phone [phone] Care Team Providers Care Salary And Wage Administrator Name Role Phone Nessa Foreman MD Primary Care Provider + Encounter Details Date Type Department Care Team (Late st Contact Info) Description 01/02/2024 12:30 PM EDT Telemedicine Orthopaedics [facility] [address] [facility] [place] [address] Rene Bruno PA-C [address] [place] [address] Primary osteoarthritis of both knees*; Chronic pain of both knees Allergies Active Allergy Reactions Criticality Noted Date Comments Allopurinol Low 01/20/2007 Rash Sulfamethoxazole-Trimet hoprim 10/06/2015 Hallucinations, anxiety Metformin Diarrhea,Edema Other 09/06/2023 Penicillins 12/24/2000 hives documented as of this encounter (statuses as of 01/02/2024) Medications Medication Sig Dispensed Refills Start Date End Date Status VITAMIN D 2000 UNITS PO CAPS Take 1 Capsule by mouth in the morning. 30 Cap 5 11/29/2011 Active ASPIRIN EC 81 MG PO TBECIndications:blo od flow Take 1 Tablet by mouth daily. Active Blood Glucose Monitoring Suppl ([employer]) W/DEVICE KITIndications:DM type 2, goal A1c [...] directed . 1 Kit 1 04/18/2022 Active OneTouch UltraSoft Lancets Use as directed [...] hemoglobin A1c goal of less than 7.0% ([facility]) Inject 1 mg under the skin once a week. On Sundays 9 mL 3 08/15/2023 Active LORazepam 0.5 MG Oral Tablet (Ativan) TAKE 1 TABLET BY MOUTH THREE TIMES DAILY NEEDED FOR ANXIETY 90 Tablet 10/23/2023 Active Colchicine 0.6 MG Oral TabletIndications:G outy arthropathy, chronic, without tophi,Kidney disease, chronic, stage III (GFR 30-59 ml/min) ([facility]) TAKE 1 TABLET BY MOUTH [...] as of this encounter (statuses as of 01/02/2024) Active Problems Problem Noted Date Diagnosed Date [...] as of this encounter (statuses as of 01/02/2024) Resolved Problems Problem Noted Date Diagnosed Date Resolved Date Endometrial cancer 07/19/2022 04/19/202 4 Cancer Staging:Pathologic stage from 11/27/2016:FIGO Stage IA(pT1a, pN0, cM0) - Signed by Ronald Oliver MD on 07/20/2022 Overview: History 12/19/20 [facility]/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 [employer] Other*[id number] 06/19/2010 05/29/2016 Overview: Study Titile: [employer] Markers for Patients with Cardiovascular Disease Project # [id number] PI: Tara Purcell MD Please call [phone] with study related questions Hand Dermatitis 09/24/2007 01/10/2017 Gout 09/09/2006 10/17/2009 Dermatitis 02/07/2005 09/24/2007 Dyslipidemia, goal to be determined 05/08/2004 04/06/2009 Overview: Per Lipid Taxonomy. Vascular complications of renal artery 06/25/2002 01/10/2017 documented as of this encounter (statuses as of 01/02/2024) Immunizations Name Administration Dates Next Due COVID-19 [...] as of this encounter Progress Notes * Rene Bruno PA-C - 01/02/2024 11:00 AM EDT ORTHOPAEDIC SURGERY - Telephonic Note After connecting to the patient via telephone, the patient was identified by name and date of . Patient was then informed that this was a telephone call only visit. The patient agreed to participate. Visit Disposition: Requires face to face/telemedicine follow-up (this telephonic visit is not billable) Total call duration was 8 minutes. SUBJECTIVE: Makenna Escobar is a 78 year old female. No chief complaint on file. HPI: Makenna is a very pleasant 78-year-old female presents via telephonic visit today to discuss relief obtained from recent Iovera nerve ablation of the bilateral knees roughly 1 month ago. Today she reports that she has noticed good relief in her symptoms, however she continues to feel what she describes as [id number] pain. She is also interested in repeat Euflexxa series as she states that was particularly beneficial for her roughly 7 months ago. Her last Euflexxa series ended in May of this year. Review of Systems: Constitutional ROS: No fevers, sweats, or chills Cardiovascular ROS: No chest pain Gastrointestinal ROS: No abdominal pain Musculoskeletal/Extremities ROS: Bilateral knee pain Neurologic ROS: No numbness or tingling Review of patient's allergies indicates: Allergen Reactions Bactrim [Sulfamethoxazole-Trimethoprim] Hallucinations, anxiety Metformin Diarrhea and Edema Other Penicillins hives Allopurinol Rash Current Outpatient Medications Medication Sig Dispense Refill VITAMIN D 2000 UNITS PO CAPS Take 1 Capsule by mouth in the morning. 30 Cap 5 ASPIRIN EC 81 MG PO TBEC Take 1 Tablet by mouth daily. Blood Glucose Monitoring Suppl ([employer] ULTRA SYSTEM) W/DEVICE KIT Use up to four times a day as directed/E11.9 1 Kit 0 EwirelessUCH DELICA LANCETS 33G MISC Test up to twice daily DX E 11.9 100 Each 5 Acetaminophen 500 MG Oral Tablet Take 1 Tablet by mouth every 6 hours as needed for Pain. 2 tabs asneeded Omeprazole 20 MG Oral Capsule Delayed Release (PriLOSEC) TAKE 1 CAPSULE BY MOUTH ONCE DAILY ONE HOUR BEFORE THE FIRST MEAL OF THE DAY 90 Capsule 1 Zoster Vac Recomb Adjuvanted 50 MCG/0.5ML Intramuscular Suspension Reconstituted (Shingrix) Inject 0.5 mL into a large muscle now and repeat dose in 60 to 180 days 1 Each 1 OneTouch Ultra In Vitro Strip (Glucose Blood) USE 1 STRIP TO CHECK GLUCOSE ONCE TO TWICE DAILY DIRECTED 200 Strip 3 OneTouch Verio w/Device Kit Use as directed . 1 Kit 1 OneTouch UltraSoft Lancets Use as directed 4 times a day as needed for Hyperglycemia (high sugar). Use up to four times a day as directed 100 Each 3 OneTouch Verio In Vitro Strip (Glucose Blood) Use up to 4 times a day E11.9 100 Strip 11 Calcitriol 0.25 MCG Oral Capsule (Rocaltrol) TAKE 1 CAPSULE BY MOUTH ONCE DAILY ON SATURDAY AMD SATURDAY ONLY 24 Capsule 3 Meloxicam 15 MG Oral Tablet (Mobic) TAKE 1 TABLET BY MOUTH ONCE DAILY NEEDED FOR JOINT PAIN 30 Tablet 3 Atorvastatin Calcium 20 MG Oral Tablet (Lipitor) TAKE 1 TABLET BY MOUTH AT BEDTIME 90 Tablet 3 Losartan Potassium 100 MG Oral Tablet (Cozaar) Take 1 tablet by mouth once daily 90 Tablet 1 amLODIPine Besylate 5 MG Oral Tablet (Norvasc) TAKE 1 TABLET BY MOUTH IN THE MORNING 90 Tablet 1 Metoprolol Succinate ER 25 MG Oral Tablet Extended Release 24 Hour (Toprol XL) Take two tablets in AM and one tablet in evening. 90 Tablet 6 Ozempic (1 MG/DOSE) 4 MG/3ML Subcutaneous Solution Pen-injector (Semaglutide (1 MG/DOSE)) Inject 1 mg under the skin once a week. On Sundays 9 mL 3 LORazepam 0.5 MG Oral Tablet (Ativan) TAKE 1 TABLET BY MOUTH THREE TIMES DAILY NEEDED FOR ANXIETY 90 Tablet 0 Colchicine 0.6 MG Oral Tablet TAKE 1 TABLET BY MOUTH IN THE MORNING NEEDED FOR GOUT 30 Tablet 0 Loratadine 10 MG Oral Tablet (Claritin) Take 1 Tablet by mouth in the morning. 20 Tablet 0 Fluticasone Propionate 50 MCG/ACT Nasal Suspension (Flonase) Administer 2 Sprays into each nostril in the morning. 9.9 mL 0 Furosemide 20 MG Oral Tablet (Lasix) Take 3 Tablets by mouth in the morning. Triamcinolone Acetonide 0.025 % External Ointment (Aristocort) USE SPARINGLY NIGHTLY FOR TWO WEEKS,THEN NEEDED. LITTLE IS EFFECTIVE 60 g 3 Gabapentin 400 MG Oral Capsule (Neurontin) Take two capsules by mouth in the morning and one in theevening 270 Capsule 1 traMADol HCl 50 MG Oral Tablet (Ultram) Take 1 Tablet by mouth every 6 hours as needed for Pain, Severe. 14 Tablet 0 No current facility-administered medications for this visit. Patient Active Problem List Diagnosis DYSLIPIDEMIA, GOAL LDL BELOW 100 Gouty arthropathy, chronic, without tophi Displacement of lumbar intervertebral disc without myelopathy Spinal stenosis of lumbar region without neurogenic claudication Type 2 diabetes mellitus with hemoglobin A1c goal of less than 7.0% (HCC) Intraductal papilloma of breast HTN, goal below 140/90 Renal artery stenosis (HCC) Renovascular hypertension with goal blood pressure less than 140/90 Hx MRSA infection Advanced directives, counseling/discussion Gastroesophageal reflux disease without esophagitis Primary open-angle glaucoma, right eye, moderate stage ATILIO (generalized anxiety disorder) Hypertensive kidney disease with stage 3b chronic kidney disease (HCC) Chronic kidney disease, stage 3b (HCC) Type 2 diabetes mellitus with stage 3b chronic kidney disease, without long-term current use of insulin (HCC) History of malignant neoplasm of endometrium Morbid obesity with BMI of 40.0-44.9, adult (HCC) Hypertensive heart and kidney disease with chronic diastolic congestive heart failure and stage 3a chronic kidney disease (HCC) Past Medical History: Diagnosis Date Displacement of lumbar intervertebral disc without myelopathy 01/11/2010 DM type 2, goal A1c below 7 Dyslipidemia, goal LDL below 100 04/06/2009 Per Lipid Taxonomy. Endometrial cancer (HCC) History 12/19/20 [facility]/Onc note "REBECA" HTN, goal below 140/90 Intraductal papilloma of breast 11/03/2012 left Kidney disease, chronic, stage III (GFR 30-59 ml/min) (HCC) 07/21/2007 Renal artery stenosis (HCC) 09/02/2015 Renovascular hypertension with goal blood pressure less than 140/90 09/02/2015 Spinal stenosis of lumbar region without neurogenic claudication 01/11/2010 Vascular complications of renal artery(997.72) Past Surgical History: Procedure Laterality Date ANGIO-KIDNEY ARTERIES BILAT 01/29/2011 IMAGING S&I BILATERAL RENAL ARTERIES performed by NANY MCKEON at [facility] BIOPSY OF BREAST, OPEN 03/23 left fibrodenoma - Dr. Montanez BIOPSY OF BREAST, OPEN 2005 left fibroadenoma BIOPSY OF BREAST, OPEN 02/20/08 Left breast biopsy (benign) at [facility] - Dr. Montanez BREAST-PLACE NEEDLE LOCALIZ 05/08/2012 05/08/2012 LEFT breast needle localication intraductal papilloma with usual ductal hyperplastia [facility] - Dr. Juvenal Montanez COLONOSCOPY, DIAGNOSTIC (RECTUM) 11/06/2016 diverticulosis, repeat 10 yrs/[facility] CORONARY ANGIOGRAPHY CATH PLACEMENT 06/19/2010 CORONARY ANGIOGRAPHY CATH PLACEMENT performed by ALLYSSA GUAJARDO at [facility] CRYOCAUTERY OF CERVIX DILATION AND CURETTAGE (D&C) 11/16/2010 EXC BREAST LESION RADMARK Left 02/02/2019 02/02/2019 left partial mastectomy [facility] Dr. Juvenal Montanez L-/S-SPINE PARAVERTEBRL FACET INJ,2 LEVELS 10/29/2013 L-/S-SPINE PARAVERTEBRL FACET INJ,2 LEVELS performed by Yonathan Brooke DO at OR [facility] LAPAROSCOPY TOTAL HYSTX, UTERUS > 250GM TUBE/OVARY N/A 11/27/2016 Robotic-assisted total laparoscopic hysterectomy and bilateral salpingo- oophorectomy with diagnostic cystoscopy performed by Chris Puckett MD at [facility] LIGATE/CUT OVIDUCT(S) Tubal Ligation REMOVE CATARACT, INSERT LENS PROSTH Left 10/16/2018 left EXTRACAPSULAR CATARACT REMOVAL WITH INTRAOCULAR LENS performed by Jhonny Stanton MD at OR [facility] REMOVE CATARACT, INSERT LENS PROSTH Right 10/28/2018 right EXTRACAPSULAR CATARACT REMOVAL WITH INTRAOCULAR LENS performed by Jhonny Stanton MD at [facility] REMOVE GALLBLADDER 1961 Cholecystectomy, Open REMOVE LUMBAR SPINE LAMINA, 3+ SEGS 1999 HNP Excision RENAL / VISCERAL ARTERY [place] ANGIOPLASTY 01/29/2011 Right renal angioplasty and stent 01/29/[address] Mckeon at [facility] RENAL ANGIO BILAT-TECH ONLY 01/2003 Lt renal stent/rt renal angioplasty, Dr steward SACROILIAC JOINT INJECT W/GUIDANCE 05/15/2021 INJECTION SACROILIAC JOINT performed by Eb Collado DO at OR [facility] SACROILIAC JOINT INJECT W/GUIDANCE 12/13/2021 INJECTION SACROILIAC JOINT performed by Eb Collado DO at OR [facility] SACROILIAC JOINT INJECT W/GUIDANCE 09/18/2023 INJECTION SACROILIAC JOINT performed by James Crain DO at OR [facility] STEREOTAXIC SURGERY Right 12/09/2017 12/09/2017 right breast dx 1. usual ductal hyperplasia 2. adenosis 3. fibrocystic change [facility] US GUIDED BREAST BIOPSY LEFT Left 12/09/2017 12/09/2017 ultrasound guided breast biopsy [facility] - dx A. papillary porliferation with usual ductal hyerplasia . Social History Tobacco Use Smoking status: Never Smokeless tobacco: Never Vaping Use Vaping status: Never Used Substance Use Topics Alcohol use: No Drug use: No Family history: Noncontributory OBJECTIVE: Diagnostic Testing: None today Vital Signs: Unable to obtain There were no vitals taken for this visit. Physical Exam: Unable to obtain ASSESSMENT: Primary osteoarthritis of both knees (Primary) Chronic pain of both knees Follow Up: Return for Clinic Visit. | For: Clinic Visit | Check-out note: Follow up for Euflexxa series bilateral knees. Otherwise follow up for Iovera nerve ablation bilateral knees PLAN: She is doing well following her Iovera cryo ablation of the bilateral knees. She has experienced some relief following the procedure, but is interested in repeat Euflexxa series for some residual discomfort. We discussed treatment of resolving applications of Iovera and viscosupplementation as a dual therapy. Patient is in agreement. Patient would like to be scheduled for repeat Iovera as soon asappropriate. Otherwise we will seek prior authorization and scheduling for a repeat Euflexxa series. Patient was certainly urged to contact clinic in the interim with any questions, concerns, or worsening of symptoms. Patient is comfortable with the plan, and all questions were answered. This chart was completed in part utilizing [employer] Speech Voice Recognition Software. Grammatical errors, random word insertions, pronoun errors, and incomplete sentences are an occasional consequence of this system due to software limitations, ambient noise, and hardware issues. Any formal questions or concerns about the content, text, or information contained within the body of this dictation should be directly addressed to the provider for clarification. Rene Bruno PA-C 01/02/2024 11:00 AM documented in this encounter Plan of Treatment Upcoming Encounters Date Type Department Care Team (Latest Contact Info) Description 01/07/2024 2:30 PM EDT Office Visit Cardiology, [facility] [address] [place] [address] Allyssa Cano, DO [address] [place] [address] 01/16/2024 11:30 AM EDT Office Visit Orthopaedics [facility] [address] [place] [address] Rene Bruno PA-C [address] [place] [address] 01/20/2024 1:45 PM EDT Hospital Encounter OR [facility], Operating Room [facility] [address] [place] [phone] James Crain DO [address] [place] [address] 01/20/2024 1:45 PM EDT - 01/20/2024 2:10 PM EDT Surgery OR [facility], Operating Room [facility] [address] [place] [phone] James Crain DO [address] [place] [address] INJECTION SACROILIAC JOINT 01/23/2024 11:30 AM EDT Office Visit Orthopaedics [facility] [address] [place] [address] Rene Bruno PA-C [address] [place] [address] 01/27/2024 9:30 AM EDT Imaging Vascular Lab, [facility] 2nd Floor, [place] [address] [facility] [place] [address] 01/30/2024 11:30 AM EDT Office Visit Orthopaedics [facility] [address] [facility] [place] [address] Rene Bruno PA-C [address] [place], [place] [address] [address] 02/05/2024 12:30 PM EDT Office Visit Vascular Surgery, [facility] [address] [facility] [place] [address] Sergei Frost MD [address] [place] [address] 02/18/2024 3:00 PM EDT Office Visit General Internal Medicine [facility] [address] [facility] [place] [address] Nessa Foreman MD [address] [place] [place] [address] Scheduled Procedures Name Priority Associated Diagnoses Date/Ti [...] Additional history exists CKD HGB USE SMARTSET 55959 11/24/202411/24, 11/25/2023, 11/14/2022, Additional history exists CKD PHOS USE SMARTSET 87302 11/24/2024 08/0 08/2023, 07/17/2023, 07/11/2022, Additional history [...] this encounter Medical Devices Implanted Type Area Road Engineer Freight Device Identifier Shelf Expiration Date Model / Serial / Lot Stent [id number] - [id number] Implanted:Qty: 1 on 01/29/2011 at OR [facility] Right: Renal Artery JNJ : CORDIS ENDOVASCULAR 07/21/2012 [id number] / / [id number] Lens Intraoc 18.5 - [id number] - [id number] Implanted:Qty: 1 on 10/16/2018 by Jhonny Stanton MD at OR [facility] Left: Eye [employer]CH [employer] LOMB 02/19/2023 [id number] / [id number] / [id number] Lens Intraoc 18.0 - [id number] - [id number] Implanted:Qty: 1 on 10/28/2018 by Jhonny Stanton MD at OR [facility] Right: Eye BAUSCH [employer] LOMB 11/19/2022 [id number] / [id number] / documented as of this encounter Visit Diagnoses Diagnosis Primary osteoarthritis of both knees- Primary Primary localized osteoarthrosis, lower leg Chronic pain of both knees Inflammation of sacroiliac joint (HCC) Sacroiliitis, not [...] Advance Directives occurred with: Patient Care Teams Salary And Wage Administrator Relationship Specialty Start Date End Date Nessa Foreman MD [address] [place] [address] PCP - General Internal Medicine 05/11/10 documented as of this encounter
--- OUTSIDE RECORDS SUMMARY | 2024-01-06 01:51 | External Medical Summary | Summary of Care ---
Author Name Unknown Organization [facility] Address [address] [facility] [place] [address] Phone [phone] Care Team Providers Care Manager Business Process Name Role Phone Nessa Foreman MD Primary Care Provider + Reason for Visit * Reason Onset Date Comments Appointment 08/23/2023 recall Encounter Details Date Type Department Care Team (Late st Contact Info) Description 08/23/2023 Telephone Vascular Surg [facility] [address] [place] [address] Sergei Frost MD [address] [place] [address] Appointment (recall) Allergies Active Allergy Reactions Criticality Noted Date Comments Allopurinol Low 01/20/2007 Rash Sulfamethoxazole-Trimet hopri 10/06/2015 Hallucinations, anxiety Metformin Diarrhea,Edema Other 09/06/2023 Penicillins 12/24/2000 hives documented as of this encounter (statuses as of 12/26/2023) Medications Medication Sig Dispensed Refills Start Date End Date Status VITAMIN D 2000 UNITS PO CAPS Take 1 Capsule by mouth in the morning. 30 Cap 5 11/29/19 12 Active ASPIRIN EC 81 MG PO TBECIndications:b lood flow Take 1 Tablet by mouth daily. Active Blood Glucose Monitoring Suppl (Smove ULTRA SYSTEM) W/DEVICE KITIndications:DM type 2, goal A1c below 7 Use up to four times a day as directed/E11.9 1 Kit 0 02/05/20 15 Active ONETOUCH DELICA LANCETS 33G MISCIndications:T ype 2 diabetes mellitus with hemoglobin A1c goal of less than 7.0% (HCC) Test up to twice daily DX E 11.9 100 Each 5 09/17/19 19 Active Acetaminophen 500 MG Oral TabletIndications :headache Take 1 Tablet by mouth every 6 hours as needed for Pain. 2 tabs as needed Active Omeprazole 20 MG Oral Capsule Delayed Release (PriLOSEC)Indicat ions:Gastroesopha geal reflux disease without esophagitis TAKE 1 CAPSULE BY MOUTH ONCE DAILY ONE HOUR BEFORE THE FIRST MEAL OF THE DAY 90 Capsule 1 10/11/19 22 Active Zoster Vac Recomb Adjuvanted 50 MCG/0.5ML Intramuscular Suspension Reconstituted (Shingrix) Inject 0.5 mL into a large muscle now and repeat dose in 60 to 180 days 1 Each 1 12/05/19 22 Active OneTouch Ultra In Vitro Strip (Glucose Blood)Indications :Type 2 diabetes mellitus with hemoglobin A1c goal of less than 7.0% (HCC) USE 1 STRIP TO CHECK GLUCOSE ONCE TO TWICE DAILY DIRECTED 200 Strip 3 01/25/20 22 Active OneTouch Verio w/Device Kit Use as directed . 1 Kit 1 04/18/20 22 Active OneTouch UltraSoft Lancets Use as directed 4 times a day as needed for Hyperglycemia (high sugar). Use up to four times a day as directed 100 Each 3 04/18/20 22 Active OneTouch Verio In Vitro Strip (Glucose Blood) Use up to 4 times a day E11.9 100 Strip 11 05/23/19 23 Active Calcitriol 0.25 MCG Oral Capsule (Rocaltrol)Indica tions:CKD (chronic kidney disease) stage 3, GFR 30-59 ml/min ([facility]) TAKE 1 CAPSULE BY MOUTH ONCE DAILY ON SATURDAY AMD SATURDAY ONLY 24 Capsule 3 03/22/20 23 Active Meloxicam 15 MG Oral Tablet (Mobic)Indication s:Gouty arthropathy, chronic, without tophi TAKE 1 TABLET BY MOUTH ONCE DAILY NEEDED FOR JOINT PAIN 30 Tablet 3 05/07/19 24 Active Atorvastatin Calcium 20 MG Oral Tablet (Lipitor)Indicati ons:Dyslipidemia, goal LDL below 100 TAKE 1 TABLET BY MOUTH AT BEDTIME 90 Tablet 3 07/05/19 24 Active Losartan Potassium 100 MG Oral Tablet (Cozaar)Indicatio ns:HTN, goal below 140/90 Take 1 tablet by mouth once daily 90 Tablet 1 07/06/19 24 Active amLODIPine Besylate 5 MG Oral Tablet (Norvasc) TAKE 1 TABLET BY MOUTH IN THE MORNING 90 Tablet 1 07/06/19 24 Active Metoprolol Succinate ER 25 MG Oral Tablet Extended Release 24 Hour (Toprol XL) Take two tablets in AM and one tablet in evening. 90 Tablet 6 07/25/19 24 Active Ozempic (1 MG/DOSE) 4 MG/3ML Subcutaneous Solution Pen-injector (Semaglutide (1 MG/DOSE))Indicati ons:Type 2 diabetes mellitus with hemoglobin A1c goal of less than 7.0% ([facility]) Inject 1 mg under the skin once a week. On Sundays 9 mL 3 08/15/19 24 Active Furosemide 20 MG Oral Tablet (Lasix)Indication s:HTN, goal below 140/90 Take by mouth 4 Tablets in the morning. 360 Tablet 3 12/14/19 22 024 Discontinued ProAir HFA 108 (90 Base) MCG/ACT Inhalation Aerosol SolutionIndicatio ns:Wheezing Inhale 2 Puffs by mouth every 4 hours as needed for Wheezing. 18 g 3 04/07/20 22 024 Discontinued(Me dication/Dose Changed) Triamcinolone Acetonide 0.025 % External Ointment (Aristocort)Indic ations:Contact dermatitis USE SPARINGLY NIGHTLY FOR TWO WEEKS, THEN NEEDED. LITTLE IS EFFECTIVE 60 g 3 05/22/19 23 024 Discontinued(Re fill) Colchicine 0.6 MG Oral TabletIndications :Gouty arthropathy, chronic, without tophi,Kidney disease, chronic, stage III (GFR 30-59 ml/min) ([facility]) Take 1 Tablet by mouth in the morning. As needed for gout. 30 Tablet 1 12/14/19 23 024 Discontinued LORazepam 0.5 MG Oral Tablet (Ativan) TAKE 1 TABLET BY MOUTH THREE TIMES DAILY NEEDED FOR ANXIETY 90 Tablet 06/13/19 24 024 Discontinued Gabapentin 400 MG Oral Capsule (Neurontin)Indica tions:Abnormal CT of the abdomen,Spinal stenosis of lumbar region without neurogenic claudication TAKE 1 CAPSULE BY MOUTH THREE TIMES DAILY (MORNING, NOON, AND BEFORE BEDTIME) 270 Capsule 1 07/08/19 24 024 Discontinued(Re fill) traMADol HCl 50 MG Oral Tablet (Ultram)Indicatio ns:Spinal stenosis of lumbar region without neurogenic claudication Take 1 Tablet by mouth 2 times a day as needed for Pain, Severe. 14 Tablet 07/20/19 24 024 Discontinued metFORMIN HCl ER 500 MG Oral Tablet Extended Release 24 Hour (Glucophage XR)Indications:Ty pe 2 diabetes mellitus with stage 3b chronic kidney disease, without long-term current use of insulin (HCC),Type 2 diabetes mellitus with hemoglobin A1c goal of less than 7.0% (HCC) Take 1 Tablet by mouth 2 times a day with morning and evening meals. 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 [employer] Other*[id number] 06/19/2010 05/29/2016 Overview: Study Titile: Genomics Markers for Patients with Cardiovascular Disease Project # [id number] PI: Tara Purcell MD Please call [phone] with study related questions Hand Dermatitis 09/24/2007 01/10/2017 Gout 09/09/2006 10/17/2009 Dermatitis 02/07/2005 09/24/2007 Dyslipidemia, goal to be determined 05/08/2004 04/06/2009 Overview: Per Lipid Taxonomy. Vascular complications of renal artery 06/25/2002 01/10/2017 documented as of this encounter (statuses as of 12/26/2023) Immunizations Name Administration Dates Next Due COVID-19 mRNA, LNP-s, No Pre serve, 2-Dose Series (Moderna) 06/23/2020,05/26/2020 COVID-19, mRNA, LNP-s, PF, B ooster, 100mcg/0.5mg (Moderna) 04/03/2021 Covid-19, Mrna, Lnp-s, Pf, B ivalent, 30 Mcg, IM, 12 yrs and above (Pfizer) 03/08/2022 Influenza, Whole Virus 02/27/2001,03/27/1999,04/1997 Pneumococcal Conjugate Vacc, 13 Valent (Prevnar) 08/05/2014 [...] Trivalen t, (IIV3), with Preserv, (Fluzone) 04/28/2014,01/27/2013,02/19/2012,01/03,01/11/2010,02/27/2008,02/17/2007 ,02/22/2006,02/12/2005,02/01/2003,01/21 TD, Preservative Free 02/10/2018 TDAP, Age 7 [...] encounter Miscellaneous Notes * Telephone Encounter - Bobbi Osorio LPN - 12/26/2023 1:25 PM EDT Pt cancelled appts on 12/03/23 and 12/11/23 due to a fall. Spoke with patient and she was ready reschedule testing and f/u. Testing 01/27/24 in [facility] 02/05/24 Dr. Frost in [facility] Bobbi Osorio LPN 12/26/2023 1:33 PM * Telephone Encounter - Cary García OSA - 08/26/2023 11:06 AM EDT Scheduled rr * Telephone Encounter - Cary García OSA - 08/23/2023 11:24 AM EDT -F/U in 1 year at [facility], or sooner prn. Will need repeat renal duplex completed at [facility] 1 week prior to clinic visit. (Santosh november 2023) Called and left a message for patient to schedule her year follow up [facility] documented in this encounter Plan of Treatment Upcoming Encounters Date Type Department Care Team (Latest Contact Info) Description 01/02/2024 12:30 PM EDT Telemedicine Orthopaedics [facility] [address] [place] [address] Rene Bruno PA-C [address] [place] [address] 01/07/2024 2:30 PM EDT Office Visit Cardiology, [facility] [address] [place] [address] Jerry Cano DO [address] [place] [phone] 01/20/2024 1:45 PM EDT Hospital Encounter OR [facility], Operating Room [facility] [address] [place] [phone] James Crain DO [address] [place] [phone] 01/20/2024 1:45 PM EDT - 01/20/2024 2:10 PM EDT Surgery OR [facility], Operating Room [facility] [address] [place] [phone] James Crain DO [address] [place] [phone] INJECTION SACROILIAC JOINT 01/27/2024 9:30 AM EDT Imaging Vascular Lab, [facility] 2nd Floor, [place] [address] [place] [address] 02/05/2024 12:30 PM EDT Office Visit Vascular Surgery, [facility] [address] [place] [address] Sergei Frost MD [address] [facility] [place] [address] 02/18/2024 3:00 PM EDT Office Visit General Internal Medicine [facility] [address] [facility] [place] [address] Nessa Foreman MD [address] [facility] [place] [address] Scheduled Procedures Name Priority Associated Diagnoses Date/Ti [...] Additional history exists CKD HGB USE SMARTSET 64444 11/24/202411/24, 11/25/2023, 11/14/2022, Additional history exists CKD PHOS USE SMARTSET 31009 11/24/2024 08/0 08/2023, 07/17/2023, 07/11/2022, Additional history [...] this encounter Medical Devices Implanted Type Area Mine Safety Director Device Identifier Shelf Expiration Date Model / Serial / Lot Stent [id number] Frank [id number] - [id number] [place] 1 [place] [facility] [place]al [place] JNJ : CORDIS ENDOVASCULAR 07/21/2012 [id number] / / [id number] Lens Intraoc 18.5 - [id number] - [id number] Implanted:Qty: 1 on 10/16/2018 by Jhonny Stanton MD at OR [facility] Left: Eye BAUSCH & LOMB 02/19/2023 [id number] / [id number] / [id number] Lens Intraoc 18.0 - [id number] - [id number] Implanted:Qty: 1 on 10/28/2018 by Jhonny Stanton MD at OR [facility] Right: Eye BAUSCH & LOMB 11/19/2022 [id number] / [id number] / documented as of this encounter Advance [...] Advance Directives occurred with: Patient Care Teams Manager Business Process Relationship Specialty Start Date End Date Nessa Foreman MD [address] [place] [address] [place] [address] PCP - General Internal Medicine 05/11/10 documented as of this encounter
--- OUTSIDE RECORDS SUMMARY | 2024-01-06 01:51 | External Medical Summary | Summary of Care ---
Author Name Unknown Organization [facility] Address [address] [facility] [place] [address] Phone [phone] Care Team Providers Care Cream Maker Name Role Phone Nessa Foreman MD Primary Care Provider + Reason for Visit * Reason Onset Date Comments Appointment 08/23/2023 recall Encounter Details Date Type Department Care Team (Late st Contact Info) Description 08/23/2023 Telephone Vascular Surg [facility] [address] [place] [address] Sergei Frost MD [address] [place] [address] Appointment (recall) Allergies Active Allergy Reactions Criticality Noted Date Comments Allopurinol Low 01/20/2007 Rash Sulfamethoxazole-Trimet hopri 10/06/2015 Hallucinations, anxiety Metformin Diarrhea,Edema Other 09/06/2023 Penicillins 12/24/2000 hives documented as of this encounter (statuses as of 12/27/2023) Medications Medication Sig Dispensed Refills Start Date End Date Status VITAMIN D 2000 UNITS PO CAPS Take 1 Capsule by mouth in the morning. 30 Cap 5 11/29/19 12 Active ASPIRIN EC 81 MG PO TBECIndications:b lood flow Take 1 Tablet by mouth daily. 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 [employer] Other*[id number] 06/19/2010 05/29/2016 Overview: Study Titile: [employer] Markers for Patients with Cardiovascular Disease Project # [id number] PI: Tara Purcell MD Please call [phone] with study related questions Hand Dermatitis 09/24/2007 01/10/2017 Gout 09/09/2006 10/17/2009 Dermatitis 02/07/2005 09/24/2007 Dyslipidemia, goal to be determined 05/08/2004 04/06/2009 Overview: Per Lipid Taxonomy. Vascular complications of renal artery 06/25/2002 01/10/2017 documented as of this encounter (statuses as of 12/27/2023) Immunizations Name Administration Dates Next Due COVID-19 [...] encounter Miscellaneous Notes * Telephone Encounter - Omer Head PA-C - 12/27/2023 10:09 AM EDT Thank you * Telephone Encounter - Bobbi Osorio LPN - 12/26/2023 1:25 PM EDT Pt cancelled appts on 12/03/23 and 12/11/23 due to a fall. Spoke with patient and she was ready reschedule testing and f/u. Testing 01/27/24 in [facility] 02/05/24 Dr. Frost in [facility] Bobbi Osorio LPN 12/26/2023 1:33 PM * Telephone Encounter - Cary García OSA - 08/26/2023 11:06 AM EDT Scheduled rrh * Telephone Encounter - Cary García OSA - 08/23/2023 11:24 AM EDT -F/U in 1 year at [facility], or sooner prn. Will need repeat renal duplex completed at [facility] 1 week prior to clinic visit. (Santosh november 2023) Called and left a message for patient to schedule her year follow up [facility] documented in this encounter Plan of Treatment Upcoming Encounters Date Type Department Care Team (Latest Contact Info) Description 01/02/2024 12:30 PM EDT Telemedicine Orthopaedics [facility] [address] [place] [address] Rene Bruno PA-C [address] [place] [address] 01/07/2024 2:30 PM EDT Office Visit Cardiology, [facility] [address] [place] [address] Jerry Cano, DO [address] [place] [phone] 01/20/2024 1:45 PM EDT Hospital Encounter OR [facility], Operating Room [facility] [address] [place] [phone] James Crain, [address] [place] [phone] 01/20/2024 1:45 PM EDT - 01/20/2024 2:10 PM EDT Surgery OR [facility], Operating Room [facility] [address] [place] [address] James Crain, [address] [place] [phone] INJECTION SACROILIAC JOINT 01/27/2024 9:30 AM EDT Imaging Vascular Lab, [facility] 2nd Floor, [place] [address] [facility] [place] [address] 02/05/2024 12:30 PM EDT Office Visit Vascular Surgery, [facility] [address] [facility] [place] [address] Sergei Frost MD [address] [place] [address] 02/18/2024 3:00 PM EDT Office Visit General Internal Medicine [facility] [address] [facility] [place] [address] Nessa Foreman MD [address] [place] [address] Scheduled Procedures Name Priority Associated Diagnoses Date/Ti [...] 02/15/2021, Additional history exists HbA1c 01/17/2024 07/17/2023, 0709/2022, 07/11/2022, Additional history exists Diabetic Foot Exam 01/30/2024 01/29/2023, 1 05/21/2020, 02/24/2020, Additional history exists GFR 05/27/2024 11/25/2023, 06/21, 11/14/2022, Additional history exists Albumin/Creatinine Ratio 11/24/2024 024, 11/14/2022, 11/23/2021, Additional history exists CKD HGB USE SMARTSET 75524 11/24/202411/24, 11/25/2023, 11/14/2022, Additional history exists CKD PHOS USE SMARTSET 95467 11/24/2024 08/0 08/2023, 07/17/2023, 07/11/2022, Additional history [...] this encounter Medical Devices Implanted Type Area Fish Hatchery Laborer Device Identifier Shelf Expiration Date Model / Serial / Lot Stent [id number] Frank [id number] - [id number] Implanted:Qty: 1 on 01/29/2011 at [place] [facility] [place] Right: Renal Artery JNJ : CORDIS ENDOVASCULAR 07/21/2012 [id number] / / [id number] Lens Intraoc 18.5 - [id number] - [id number] Implanted:Qty: 1 on 10/16/2018 by Jhonny Stanton MD at OR [facility] Left: Eye BAUSCH & LOMB 02/19/2023 [id number] / [id number] / [id number] Lens Intraoc 18.0 - [id number] - [id number] Implanted:Qty: 1 on 10/28/2018 by Jhonny Stanton MD at OR [facility] Right: Eye BAUSCH & LOMB 11/19/2022 [id number] / [id number] / documented as of this encounter Advance [...] Advance Directives occurred with: Patient Care Teams Cream Maker Relationship Specialty Start Date End Date Nessa Foreman MD [address] [facility] [place] [address] PCP - General Internal Medicine 05/11/10 documented as of this encounter
--- OUTSIDE RECORDS SUMMARY | 2024-01-06 01:52 | External Medical Summary ---
Author Name Unknown Address Unknown Organization [id number]:LABORATORY [facility] [place] - [address] [place] [address] Laboratory Report Ordering Provider Test Date Status TIN MCPHERSON 11/25/2023 14:21:51 Final Observation Date Value Abnormality Reference (Units ) Status BUN 11/25/2023 14:21:51 33 Above high normal 6-20 (mg/dL) Final Creatinine 11/25/2023 14:21:51 1.3 Above high normal 0.5-1.0 (mg/dL) Final Glomerular filtration rate/1.73 sq M.predicted [Volume Rate/Area] in Serum, Plasma or Blood by Creatinine-based formula (CKD-EPI) 11/25/2023 14:21:51 42 Below low normal >=60 (mL/min) Final eGFR is calculated based on the CKD-EPI 2020 equation. Sodium 11/25/2023 14:21:51 143 135-146 (m mol/L) Final Potassium 11/25/2023 14:21:51 4.1 3.5-5.1 (m mol/L) Final Cl 11/25/2023 14:21:51 104 98-107 (mm ol/L) Final CO2 11/25/2023 14:21:51 26 22-32 (mmo l/L) Final Anion gap 11/25/2023 14:21:51 13 7-15 (mmol /L) Final Glucose 11/25/2023 14:21:51 66 Below low normal 70- 120 (mg/dL) Final Calcium 11/25/2023 14:21:51 9.9 8.4-10.2 ( mg/dL) Final Albumin 11/25/2023 14:21:51 4.3 3.8-5.0 (g /dL) Final Phosphate 11/25/2023 14:21:51 3.8 2.5-4.8 (m g/dL) Final Performing Location LABORATORY C - [address] [place] [address]
--- OUTSIDE RECORDS SUMMARY | 2024-01-06 01:52 | External Medical Summary ---
Author Name Unknown Address Unknown Organization [id number]:[place] [facility] [place] [address] [place] [address] Laboratory Report Ordering Provider Test Date Status VAIBHAV SEGURA 11/10/2023 14:53:08 Final Observation Date Value Abnormality Reference (Units) Status Bacteria identified in Specimen by Culture 11/10/2023 14:53:08 No significant growth Final Test: Culture, Urine, Quanti tative
Specimen Source: Urine, Clean Catch
Specimen Type: Urine
Specimen Date: 11/10/2023 1453
Result Date: 11/11/2023 1333
Result Status: Final result
Resulting Lab: [facility] [place]
[address]
[place] [address]

CULTURE

No significant growth

null Performing Location [facility] [place] [address] [facility] [address]
--- OUTSIDE RECORDS SUMMARY | 2024-01-06 01:52 | External Medical Summary ---
Author Name Unknown Address Unknown Organization [id number]:LABORATORY [facility] [place] - [address] [facility] [address] [place] [address] Laboratory Report Ordering Provider Test Date Status TIN MCPHERSON 11/25/2023 14:21:51 Final Observation Date Value Abnormality Reference (Units ) Status Parathyrin.intact [Mass/volume] in Serum or Plasma 11/25/2023 14:21:51 63 15-65 (pg/mL) Final Performing Location LABORATORY [facility] [place] - [address] [place] [address]
--- OUTSIDE RECORDS SUMMARY | 2024-01-06 01:52 | External Medical Summary ---
Author Name Unknown Address Unknown Organization K09:LABORATORY [place] [address] Laboratory Report Ordering Provider Test Date Status ROSALIND PARDO 11/25/2023 14:21:51 Final Observation Date Value Abnormality Reference (Units ) Status WBC, Total 11/25/2023 14:21:51 11.33 Above high normal 4 .00-10.80 (K/uL) Final RBC 11/25/2023 14:21:51 4.21 3.85-5.15 (M/uL) Final Hemoglobin 11/25/2023 14:21:51 13.5 12.0-15.3 (g/dL) Final HCT 11/25/2023 14:21:51 40.1 36.0-45.2 (%) Final MCV 11/25/2023 14:21:51 95.2 81.5-97.5 (fL) Final MCH 11/25/2023 14:21:51 32.1 27.0-34.0 (pg) Final MCHC 11/25/2023 14:21:51 33.7 32.0-36.0 (g/dL) Final RDW 11/25/2023 14:21:51 14.4 11.5-15.5 (%) Final Platelets 11/25/2023 14:21:51 356 140-400 (K /uL) Final MPV 11/25/2023 14:21:51 9.2 6.6-11.1 ( fL) Final Performing Location LABORATORY [place] [address]
--- OUTSIDE RECORDS SUMMARY | 2024-01-06 01:52 | External Medical Summary | Summary of Care ---
Author Name Unknown Organization [facility] [address] [facility] [address] Phone [phone] Care Team Providers Care Research Lab Assistant Name Role Phone Nessa Foreman MD Primary Care Provider + Reason for Visit * Reason Comments Outpatient Testing Encounter Details Date Type Department Care Team (Late st Contact Info) Description 11/25/2023 2:15 PM EDT Laboratory Laboratory [facility] [place] [address] [place] [address] [place], [address] [facility] [place] [address] Type 2 diabetes mellitus with stage 3b chronic kidney disease, without long-term current use of insulin (HCC); Stage 3a chronic kidney disease (HCC) Allergies Active Allergy Reactions Criticality Noted Date Comments Allopurinol Low 01/20/2007 Rash Sulfamethoxazole-Trimet hoprim 10/06/2015 Hallucinations, anxiety Metformin Diarrhea,Edema Other 09/06/2023 Penicillins 12/24/2000 hives documented as of this encounter (statuses as of 11/25/2023) Medications Medication Sig Dispensed Refills Start Date End Date Status VITAMIN D 2000 UNITS PO CAPS 1 CAPSULE DAILY 30 Cap 5 11/29/2011 Active ASPIRIN EC 81 MG PO TBECIndications:blo od flow Take 1 Tablet by mouth daily. Active Blood Glucose Monitoring Suppl (Selleration ULTRA SYSTEM) W/DEVICE KITIndications:DM type 2, goal A1c below 7 Use up to four times a day as directed/E11.9 1 Kit 0 02/04/2015 Active PanOpticaTOUCH DELICA LANCETS 33G MISCIndications:Typ e 2 diabetes [...] THE DAY 90 Capsule 1 10/10/2021 Active Additional Information Patient taking differently: Indications: stomach, Reported on 08/06/2022 Zoster Vac Recomb Adjuvanted 50 MCG/0.5ML Intramuscular Suspension Reconstituted (Shingrix) Inject 0.5 mL into a large muscle now and repeat dose in 60 to 180 days 1 Each 1 12/04/2021 Active Additional Information Patient not taking.Reported on 07/25/2023 [employer] Space Group[employer] Ultra In Vitro Strip (Glucose Blood)Indications:T ype 2 diabetes mellitus with hemoglobin A1c goal of less than 7.0% (HCC) USE 1 STRIP TO CHECK GLUCOSE ONCE TO TWICE DAILY DIRECTED 200 Strip 3 01/24/2022 Active ProAir HFA 108 (90 Base) MCG/ACT Inhalation Aerosol SolutionIndications :Wheezing Inhale 2 Puffs by mouth every 4 hours as needed for Wheezing. 18 g 3 04/07/2022 Active GumiyoTouch Verio w/Device Kit Use as directed . 1 Kit 1 04/18/2022 Active GumiyoTouch UltraSoft Lancets Use as directed 4 times a day as needed for Hyperglycemia (high sugar). Use up to four times a day as directed 100 Each 3 04/18/2022 Active Triamcinolone Acetonide 0.025 % External Ointment (Aristocort)Indicat ions:Contact dermatitis USE SPARINGLY NIGHTLY FOR TWO WEEKS, THEN NEEDED. LITTLE IS EFFECTIVE 60 g 3 05/22/2022 Active GumiyoToWhat's Trending Verio In Vitro Strip (Glucose Blood) Use up to 4 times a day E11.9 100 Strip 11 05/23/2022 Active Calcitriol 0.25 MCG Oral Capsule (Rocaltrol)Indicati ons:CKD (chronic kidney disease) stage 3, GFR 30-59 ml/min ([facility]) TAKE 1 CAPSULE BY MOUTH ONCE [...] THE MORNING 90 Tablet 1 07/06/2023 Active Gabapentin 400 MG Oral Capsule (Neurontin)Indicati ons:Abnormal CT of the abdomen,Spinal stenosis of lumbar region without neurogenic claudication TAKE 1 CAPSULE BY MOUTH THREE TIMES DAILY (MORNING, NOON, AND BEFORE BEDTIME) 270 Capsule 1 07/08/2023 Active Metoprolol Succinate ER 25 MG Oral Tablet Extended Release 24 Hour (Toprol XL) Take two tablets in AM and one tablet in evening. 90 Tablet 6 07/25/2023 Active Ozempic (1 MG/DOSE) 4 MG/3ML Subcutaneous Solution Pen-injector (Semaglutide (1 MG/DOSE))Indication s:Type 2 diabetes mellitus with hemoglobin A1c goal of less than 7.0% ([facility]) Inject 1 mg under the skin once a week. On Sundays 9 mL 3 08/15/2023 Active LORazepam 0.5 MG Oral Tablet (Ativan) TAKE 1 TABLET BY MOUTH THREE TIMES DAILY NEEDED FOR ANXIETY 90 Tablet 10/23/2023 Active traMADol HCl 50 MG Oral Tablet (Ultram)Indications :Spinal stenosis of lumbar region without neurogenic claudication Take 1 Tablet by mouth every 6 hours as needed for Pain, Severe. 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 20 Tablet 11/10/2023 Active Fluticasone Propionate 50 MCG/ACT Nasal Suspension (Flonase)Indication s:Acute non-recurrent frontal sinusitis,Vertigo Administer 2 Sprays into each nostril in the morning. 9.9 mL 11/10/2023 Active Meclizine HCl 25 MG Oral Tablet (Antivert)Indicatio ns:Acute non-recurrent frontal sinusitis,Vertigo Take 1 Tablet by mouth 3 times a day as needed for Dizziness. 30 Tablet 11/10/2023 Active Furosemide 20 MG Oral Tablet (Lasix)Indications: HTN, goal below 140/90 Take 3 Tablets by mouth in the morning. 11/25/2023 Active documented as of this encounter (statuses as of 11/25/2023) Active Problems Problem Noted Date Diagnosed Date [...] as of this encounter (statuses as of 11/25/2023) Resolved Problems Problem Noted Date Diagnosed Date Resolved Date Endometrial cancer 07/19/2022 Cancer Staging:Pathologic stage from 11/27/2016:FIGO Stage IA(pT1a, pN0, cM0) - Signed by Ronald Oliver MD on 07/20/2022 Overview: History 12/19/20 [employer]/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 [employer] Other*[id number] 06/19/2010 05/29/2016 Overview: Study Titile: [employer] Markers for Patients with Cardiovascular Disease Project # [id number] PI: Tara Purcell MD Please call [phone] with study related questions Hand Dermatitis 09/24/2007 01/10/2017 Gout 09/09/2006 10/17/2009 Dermatitis 02/07/2005 09/24/2007 Dyslipidemia, goal to be determined 05/08/2004 04/06/2009 Overview: Per Lipid Taxonomy. Vascular complications of renal artery 06/25/2002 01/10/2017 documented as of this encounter (statuses as of 11/25/2023) Immunizations Name Administration Dates Next Due COVID-19 [...] Department Care Team (Latest Contact Info) Description 11/27/2023 2:45 PM EDT Office Visit Orthopaedics, [facility] [address] [facility] [address] Rene Bruno PA-C [address] [facility] [address] 12/03/2023 9:00 AM EDT [facility] [address] [facility] [place] [address] 12/11/2023 11:50 AM EDT Office Visit Vascular Surgery, [facility] [address] [facility] [place] [address] Sergei Frost MD [address] [place] [address] 01/07/2024 2:30 PM EDT Office Visit Cardiology, [facility] [address] [facility] [place] [address] Jerry Cano DO [address] [facility] [place] [address] 01/20/2024 1:45 PM EDT Hospital Encounter OR [facility], Operating Room OSS [address] [place] [phone] James Crain, DO [address] [place] [phone] 01/20/2024 1:45 PM EDT - 01/20/2024 2:10 PM EDT Surgery OR [facility], Operating Room [facility] [address] [place] [phone] James Crain, DO [address] [place] [phone] INJECTION SACROILIAC JOINT 02/18/2024 3:00 PM EDT Office Visit [facility] [place] [address] [facility] [place] [address] Nessa Foreman MD [address] [facility] [place] [address] Pending Results Name Type Priority Associated Diagnoses Date /Time ALBUMIN / CREATININE RATIO, URINE Lab Routine Type 2 diabetes mellitus with stage 3b chronic kidney disease, without long-term current use of insulin ([facility]) 11/25/2023 2:21 PM EDT LIPID PANEL WITH DIRECT LDL IF TG IS HIGH Lab Routine Type 2 diabetes mellitus with stage 3b chronic kidney disease, without long-term current use of insulin ([facility]) 11/25/2023 2:21 PM EDT PTH Lab Routine Stage 3a chronic kidney disease ([facility]) 11/25/2023 2:21 PM EDT RENAL FUNCTION PANEL Lab Routine Stage 3a chronic kidney disease ([facility]) 11/25/2023 2:21 PM EDT PROTEIN/ CREATININE RATIO, URINE Lab Routine Stage 3a chronic kidney disease ([facility]) 11/25/2023 2:21 PM EDT Scheduled Procedures Name Priority Associated Diagnoses Date/Ti me INJECTION SACROILIAC JOINT Inflammation of sacroiliac joint (HCC) 01/20/2024 1:45 PM EDT COLONOSCOPY FLEXIBLE PROXIMAL DIAGNOSTIC Recall Encounter for screening colonoscopy Health Maintenance Due Date Last Done Comments Zoster Vaccines (2 of 3) 01/28/2012 12/03/2011 Depression Screening 09/06/2021 09/06/2020 COVID-19 Vaccine ( season) 2022 03/08/2022, 04/03/2021, 06/23/2020, Additional history exists Diabetic Eye Exam 09/21/2023 09/20/2022, , 06/20/2021, Additional history exists Albumin/Creatinine Ratio 2023 023, 11/23/2021, 09/11/2017, Additional history exists CKD HGB USE SMARTSET 98952 11/15/202311/24, 11/25/2023, 11/14/2022, Additional history exists Influenza Vaccine (FLU shot) (#1) 2023 01/29/2023, 03/08/2022, 02/15/2021, Additional history exists GFR 01/17/2024 07/17/2023, 2 09/2022, 03/19/2022, Additional history exists HbA1c 01/17/2024 07/17/2023, 2 09/2022, 07/11/2022, Additional history exists Diabetic Foot Exam 01/30/2024 01/29/2023, 1 05/21/2020, 02/24/2020, Additional history exists CKD PHOS USE SMARTSET 71276 07/16/202406/21, 07/11/2022, 06/26/2021, Additional history exists DTaP,Tdap,and Td Vaccines (3 [...] this encounter Medical Devices Implanted Type Area Manifold Builder Device Identifier Shelf Expiration Date Model / Serial / Lot Stent [id number] Frank [id number] - [id number] Implanted:Qty: 1 on 01/29/2011 at OR [facility] Right: Renal Artery JNJ : [employer] 07/21/2012 [id number] / / [id number] Lens Intraoc 18.5 - [id number] - [id number] Implanted:Qty: 1 on 10/16/2018 by Jhonny Stanton MD at OR [facility] Left: Eye BAUSCH [employer] LOMB 02/19/2023 [id number] / [id number] / [id number] Lens Intraoc 18.0 - [id number] - [id number] Implanted:Qty: 1 on 10/28/2018 by Jhonny Stanton MD at OR [facility] Right: Eye BAUSCH [employer] LOMB 11/19/2022 [id number] / [id number] / documented as of this encounter Procedures Procedure Name Priority Date/Time Associated Diagnosis Comments DIFFERENTIAL, AUTOMATED Routine 11/25/2023 2:21 PM EDT Type 2 diabetes mellitus with stage 3b chronic kidney disease, without long-term current use of insulin (HCC) CBC Routine 11/25/2023 2:21 PM EDT Type 2 diabetes mellitus with stage 3b chronic kidney disease, without long-term current use of insulin (HCC) CBC Routine 11/25/2023 2:21 PM EDT Type 2 diabetes mellitus with stage 3b chronic kidney disease, without long-term current use of insulin (HCC) documented in this encounter Results * (ABNORMAL) DIFFERENTIAL, AUTOMATED (11/25/2023 2:21 PM EDT) WBC 11.33(H) 4.00 - 10.80 K/uL 11/25/2023 2:32 PM EDT [facility] 56-02 Neutrophils % 51.5 40.0 - 75.0 % 11/25/2023 2:32 PM EDT [facility] 56-02 Lymphocytes % 30.8 18.0 - 42.0 % 11/25/2023 2:32 PM EDT [facility] 56-02 Monocytes % 11.0 1.0 - 11.0 % 11/25/2023 2:32 PM EDT [facility] 56 Eosinophils % 6.0 0.0 - 6.0 % 11/25/2023 2:32 PM EDT [facility] Basophils % 0.7 0.0 - 2.0 % 11/25/2023 2:32 PM EDT [facility] Absolute Neutrophils 5.83 1.80 - 7.70 K/uL 11/25/2023 2:32 PM EDT [facility] Absolute Lymphocytes 3.49 1.00 - 4.80 K/ul 11/25/2023 2:32 PM EDT [facility] Absolute Monocytes 1.25(H) 0.00 - 1.10 K/uL 11/25/2023 2:32 PM EDT [facility] Absolute Eosinophils 0.68 0.00 - 0.70 K/uL 11/25/2023 2:32 PM EDT [facility] Absolute Basophils 0.08 0.00 - 0.20 K/uL 11/25/2023 2:32 PM EDT [facility] Blood Venous blood specimen / Unknown Venipuncture / Unknown 11/25/2023 2:21 PM EDT 11/25/2023 2:21 PM EDT Elin Gallowya [facility] LAB BLOOD ORDE JANA [facility] Organization Address City/State/ZIP Co de Phone Number [facility] [address] [place] [address] * (ABNORMAL) CBC (11/25/2023 2:21 PM EDT) [facility] Signature WBC 11.33(H) 4.00 - 10.80 K/uL 11/25/2023 2:32 PM EDT [facility] RBC 4.21 3.85 - 5.15 M/uL 11/25/2023 2:32 PM EDT [facility] HGB 13.5 12.0 - 15.3 g/dL 11/25/2023 2:32 PM EDT [facility] HCT 40.1 36.0 - 45.2 % 11/25/2023 2:32 PM EDT [address] MCV 95.2 81.5 - 97.5 fL 11/25/2023 2:32 PM EDT [address] MCH 32.1 27.0 - 34.0 pg 11/25/2023 2:32 PM EDT [address] MCHC 33.7 32.0 - 36.0 g/dL 11/25/2023 2:32 PM EDT [address] RDW 14.4 11.5 - 15.5 % 11/25/2023 2:32 PM [address]T [address] PLT 356 140 - 400 K/uL 11/25/2023 2:32 PM EDT [address] MPV 9.2 6.6 - 11.1 fL 11/25/2023 2:32 PM EDT [address] Blood Venous blood specimen / Unknown Venipuncture / Unknown 11/25/2023 2:21 PM EDT 11/25/2023 2:21 PM EDT Elin Galloway [facility] LAB BLOOD ORDE JANA [facility] Organization Address City/State/ZIP Co de Phone Number [place] [address] [place], [place] [id number] documented in this encounter Visit Diagnoses Diagnosis Type 2 diabetes mellitus with stage 3b chronic kidney disease, without long-term current use of insulin (HCC) Stage 3a chronic kidney disease (HCC) Inflammation of sacroiliac joint (HCC) Sacroiliitis, not [...] Advance Directives occurred with: Patient Care Teams Research Lab Assistant Relationship Specialty Start Date End Date Nessa Foreman MD [address] [facility] [place] [address] PCP - General Internal Medicine 05/11/10 documented as of this encounter
--- OUTSIDE RECORDS SUMMARY | 2024-01-06 01:52 | External Medical Summary ---
Author Name Unknown Address Unknown Organization K01:[facility] - [address] [place] [address] Laboratory Report Ordering Provider Test Date Status ROSALIND PARDO 11/25/2023 14:21:51 Final Observation Date Value Abnormality Reference (Units ) Status LDL, (direct) 11/25/2023 14:21:51 72 <=129 (mg/dL) Final LDL Cholesterol Reference Ra nges (mg/dL):
<70 Target level for high risk ASCVD patient
<100 Optimal for general population
100-129 Near optimal for general population
130-159 Borderline high
160-189 High
>=190 Very high Performing Location [facility] - [address] [place] [address]
--- OUTSIDE RECORDS SUMMARY | 2024-01-06 01:52 | External Medical Summary | Summary of Care ---
Author Name Unknown Organization [facility] Address [address] [address] Phone [phone] Care Team Providers Care Tipple Operator Name Role Phone Nessa Foreman MD Primary Care Provider + Reason for Visit * Reason Comments Urinary Tract Infection Symptoms Dizziness Encounter Details Date Type Department Care Team (Latest Contact Info) Description 11/10/2023 2:45 PM EDT [facility] [place] [address] [place] [address] Cornelius Cespedes PA-C [address] [place] [address] UTI symptoms*; Acute non-recurrent frontal sinusitis; Vertigo Allergies Active Allergy Reactions Criticality Noted Date Comments Allopurinol Low 01/20/2007 Rash Sulfamethoxazole-Trimet hoprim 10/06/2015 Hallucinations, anxiety Metformin Diarrhea,Edema Other 09/06/2023 Penicillins 12/24/2000 hives documented as of this encounter (statuses as of 11/10/2023) Medications Medication Sig Dispensed Refills Start Date End Date Status VITAMIN D 2000 UNITS PO CAPS 1 CAPSULE DAILY 30 Cap 5 11/29/2011 Active ASPIRIN EC 81 MG PO TBECIndications:blo od flow Take 1 Tablet by mouth daily. Active Blood Glucose Monitoring Suppl (A[employer]ense SYSTEM) W/DEVICE KITIndications:DM type 2, goal A1c [...] Additional Information Patient not taking.Reported on 07/25/2023 Furosemide 20 MG Oral Tablet (Lasix)Indications: HTN, goal below 140/90 Take by mouth 4 Tablets in the morning. 360 Tablet 3 12/13/2021 Active Additional Information Patient taking differently:80 mg Oral Daily(AM),Taking 40mg daily only., Indications: water pill, Reported on 12/03/2022 [email or web address] Ultra In Vitro Strip (Glucose Blood)Indications:T ype 2 diabetes mellitus with hemoglobin A1c goal of less than 7.0% (HCC) USE 1 STRIP TO CHECK GLUCOSE ONCE TO TWICE DAILY DIRECTED 200 Strip 3 01/24/2022 Active ProAir HFA 108 (90 Base) MCG/ACT Inhalation Aerosol SolutionIndications :Wheezing Inhale 2 Puffs by mouth every 4 hours as needed for Wheezing. 18 g 3 04/07/2022 Active OneTouch Verio w/Device Kit Use as [...] IS EFFECTIVE 60 g 3 05/22/2022 Active OneTouch Verio In Vitro Strip (Glucose Blood) Use up to 4 times a day E11.9 100 Strip 11 05/23/2022 Active Calcitriol 0.25 MCG Oral Capsule (Rocaltrol)Indicati ons:CKD (chronic kidney disease) stage 3, GFR 30-59 ml/min ([facility]) TAKE 1 CAPSULE BY MOUTH ONCE DAILY [...] hemoglobin A1c goal of less than 7.0% ([facility]) Inject 1 mg under the skin once [...] disease, chronic, stage III (GFR 30-59 ml/min) ([facility]) TAKE 1 TABLET BY MOUTH IN THE [...] needed for Dizziness. 30 Tablet 11/10/2023 Active documented as of this encounter (statuses as of 11/10/2023) Active Problems Problem Noted Date Diagnosed Date [...] as of this encounter (statuses as of 11/10/2023) Resolved Problems Problem Noted Date Diagnosed Date Resolved Date Endometrial cancer 07/19/2022 Cancer Staging:Pathologic stage from 11/27/2016:FIGO Stage IA(pT1a, pN0, cM0) - Signed by Ronald Oliver MD on 07/20/2022 Overview: History 12/19/20 PHOTOVOLTAIC INSTALLATION TECHNICIAN/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 [employer] Other*[id number] 06/19/2010 05/29/2016 Overview: Study Titile: [employer] Markers for Patients with Cardiovascular Disease Project # [id number] PI: Tara Purcell MD Please call [phone] with study related questions Hand Dermatitis 09/24/2007 01/10/2017 Gout 09/09/2006 10/17/2009 Dermatitis 02/07/2005 09/24/2007 Dyslipidemia, goal to be determined 05/08/2004 04/06/2009 Overview: Per Lipid Taxonomy. Vascular complications of renal artery 06/25/2002 01/10/2017 documented as of this encounter (statuses as of 11/10/2023) Immunizations Name Administration Dates Next Due COVID-19 [...] on file documented as of this encounter Last Filed Vital Signs Vital Sign Reading Time Taken Comments Blood Pressure 130/80 11/10/2023 2:45 PM EDT Pulse 67 11/10/2023 2:45 PM EDT Temperature 37.2 C (99 F) 11/10/2023 2:45 PM EDT Respiratory Rate 12 11/10/2023 2:45 PM EDT Oxygen Saturation 97% 11/10/2023 2:45 PM EDT Inhaled Oxygen Concentration - - Weight 109.7 kg (241 lb 12.8 oz) 11/10/2023 2:45 PM EDT Height 160 cm (5' 2.99") 11/10/2023 2:45 PM EDT Body Mass Index 42.84 11/10/2023 2:45 PM EDT documented in this encounter Progress Notes * Cornelius Cespedes PA-C - 11/10/2023 2:42 PM EDT [facility] Basic Exam Makenna Escobar is a 77 year old year old female who presents for evaluation of Dizziness, and UTI Sxx 2 days, C/O some Vaginal itching. Denies Dysuria, N/V/D, CP, SOB, Tinnitus, Vision change Reports Vertigo seems worse when Lying down Supine, Less with standing. no New meds. Denies CHF, Weakness, She has been out of her Ozempic and is due today for Injection. Review of Systems Constitutional: Negative. HENT: Negative. Eyes: Negative. Respiratory: Negative. Cardiovascular: Negative. Gastrointestinal: Negative. Endocrine: Negative. Genitourinary: Negative. Vaginal itch Musculoskeletal: Negative. Skin: Negative. Allergic/Immunologic: Negative. Neurological: Vertigo Hematological: Negative. Psychiatric/Behavioral: Negative. PAST MEDICAL HISTORY: Past Medical History: Diagnosis Date Displacement of lumbar intervertebral disc without myelopathy 01/11/2010 DM type 2, goal A1c below 7 Dyslipidemia, goal LDL below 100 04/06/2009 Per Lipid Taxonomy. 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 Montanez BIOPSY OF BREAST, OPEN 2005 left fibroadenoma BIOPSY OF BREAST, OPEN 02/20/08 Left breast biopsy (benign) [place] [facility] [place] Dr. Montanez BREAST-PLACE NEEDLE LOCALIZ 05/08/2012 05/08/2012 LEFT breast needle localication intraductal papilloma with usual ductal hyperplastia [facility] - Dr. Juvenal Montanez COLONOSCOPY, DIAGNOSTIC (RECTUM) 11/06/2016 diverticulosis, repeat 10 yrs/[facility] CORONARY ANGIOGRAPHY CATH PLACEMENT 06/19/2010 CORONARY ANGIOGRAPHY CATH PLACEMENT performed by ALLYSSA GUAJARDO at [place] [facility] [place] CRYOCAUTERY OF CERVIX DILATION AND CURETTAGE (D&C) 11/16/2010 EXC BREAST LESION RADMARK Left 02/02/2019 02/02/2019 left partial mastectomy [facility] Dr. Juvenal Montanez L-/S-SPINE PARAVERTEBRL FACET INJ,2 LEVELS 10/29/2013 L-/S-SPINE PARAVERTEBRL FACET INJ,2 LEVELS performed by Yonathan Brooke DO at OR [facility] LAPAROSCOPY TOTAL HYSTX, UTERUS > 250GM TUBE/OVARY N/A 11/27/2016 Robotic-assisted total laparoscopic hysterectomy and bilateral salpingo- oophorectomy with diagnostic cystoscopy performed by Chris Puckett MD [place] [facility] [place] LIGATE/CUT OVIDUCT(S) Tubal Ligation REMOVE CATARACT, INSERT LENS PROSTH Left 10/16/2018 left EXTRACAPSULAR CATARACT REMOVAL WITH INTRAOCULAR LENS performed by Jhonny Stanton MD at OR [facility] REMOVE CATARACT, INSERT LENS PROSTH Right 10/28/2018 right EXTRACAPSULAR CATARACT REMOVAL WITH INTRAOCULAR LENS performed by Jhonny Stanton MD at OR [facility] REMOVE GALLBLADDER 1961 Cholecystectomy, Open REMOVE LUMBAR SPINE LAMINA, 3+ SEGS 1999 HNP Excision RENAL / VISCERAL ARTERY [place] ANGIOPLASTY 01/29/2011 Right renal angioplasty and stent 01/29/[address] [place] [facility] [place]GIO B[place]-TECH ONLY 01/2003 Lt renal stent/rt renal angioplasty, Dr steward SACROILIAC JOINT INJECT W/GUIDANCE 05/15/2021 INJECTION SACROILIAC JOINT performed by Eb Collado DO at OR [facility] SACROILIAC JOINT INJECT W/GUIDANCE 12/13/2021 INJECTION SACROILIAC JOINT performed by Eb Collado DO at OR [facility] SACROILIAC JOINT INJECT W/GUIDANCE 09/18/2023 INJECTION SACROILIAC JOINT performed by James Crain DO at OR [facility] STEREOTAXIC SURGERY Right 12/09/2017 12/09/2017 right breast dx 1. usual ductal hyperplasia 2. adenosis 3. fibrocystic change [facility] US GUIDED BREAST BIOPSY LEFT Left 12/09/2017 12/09/2017 ultrasound guided breast biopsy [facility] - dx A. papillary porliferation with usual ductal hyerplasia . 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 Spinal stenosis of lumbar region without neurogenic claudication Type 2 diabetes mellitus with hemoglobin A1c goal of less than 7.0% ([facility]) Intraductal papilloma of breast HTN, goal below [...] disease, without long-term current use of insulin ([facility]) History of malignant neoplasm of endometrium Morbid obesity with BMI of 40.0-44.9, adult ([facility]) Hypertensive heart and kidney disease with chronic diastolic congestive heart failure and stage 3a chronic kidney disease ([facility]) Review of patient's allergies indicates: Allergen Reactions Bactrim [Sulfamethoxazole-Trimethoprim] Hallucinations, anxiety Metformin Diarrhea and Edema Other Penicillins hives Allopurinol Rash Current Outpatient Medications Medication Sig Dispense Refill VITAMIN D 2000 UNITS PO CAPS 1 CAPSULE DAILY 30 Cap 5 ASPIRIN EC 81 MG PO TBEC Take 1 Tablet by mouth daily. Blood Glucose Monitoring Suppl ([employer] ULTRA SYSTEM) W/DEVICE KIT Use up to four times a day as directed/E11.9 1 Kit 0 [employer] DELICA LANCETS 33G MISC Test up to twice daily DX E 11.9 100 Each 5 Acetaminophen 500 MG Oral Tablet Take 1 Tablet by mouth every 6 hours as needed for Pain. 2 tabs asneeded Omeprazole 20 MG Oral Capsule Delayed Release (PriLOSEC) TAKE 1 CAPSULE BY MOUTH ONCE DAILY ONE HOUR BEFORE THE FIRST MEAL OF THE DAY (Patient taking differently: No sig reported) 90 Capsule 1 Furosemide 20 MG Oral Tablet (Lasix) Take by mouth 4 Tablets in the morning. (Patient taking differently: Take 4 Tablets by mouth in the morning. Taking 40mg daily only..) 360 Tablet 3 [employer] Ultra In Vitro Strip (Glucose Blood) USE 1 STRIP TO CHECK GLUCOSE ONCE TO TWICE DAILY DIRECTED 200 Strip 3 ProAir HFA 108 (90 Base) MCG/ACT Inhalation Aerosol Solution Inhale 2 Puffs by mouth every 4 hours as needed for Wheezing. 18 g 3 [employer] Verio w/Device Kit Use as directed . 1 Kit 1 OneTouch UltraSoft Lancets Use as directed 4 times a day as needed for Hyperglycemia (high sugar). Use up to four times a day as directed 100 Each 3 Triamcinolone Acetonide 0.025 % External Ointment (Aristocort) USE SPARINGLY NIGHTLY FOR TWO WEEKS,THEN NEEDED. LITTLE IS EFFECTIVE 60 g 3 OneTouch Verio In Vitro Strip (Glucose [...] MOUTH IN THE MORNING 90 Tablet 1 Gabapentin 400 MG Oral Capsule (Neurontin) TAKE 1 CAPSULE BY MOUTH THREE TIMES DAILY (MORNING, NOON, AND BEFORE BEDTIME) 270 Capsule 1 Metoprolol Succinate ER 25 MG Oral [...] DAILY NEEDED FOR ANXIETY 90 Tablet 0 traMADol HCl 50 MG Oral Tablet (Ultram) Take 1 Tablet by mouth every 6 hours as needed for Pain, Severe. 14 Tablet 0 Colchicine 0.6 MG Oral Tablet TAKE 1 TABLET BY MOUTH IN THE MORNING NEEDED FOR GOUT 30 Tablet 0 Loratadine 10 MG Oral Tablet (Claritin) Take 1 Tablet by mouth in the morning. 20 Tablet 0 Fluticasone Propionate 50 MCG/ACT Nasal Suspension (Flonase) Administer 2 Sprays into each nostril in the morning. 9.9 mL 0 Meclizine HCl 25 MG Oral Tablet (Antivert) Take 1 Tablet by mouth 3 times a day as needed for Dizziness. 30 Tablet 0 Zoster Vac Recomb Adjuvanted 50 MCG/0.5ML Intramuscular Suspension Reconstituted (Shingrix) Inject 0.5 mL into a large muscle now and repeat dose in 60 to 180 days (Patient not taking: Reported on 07/25/2023) 1 Each 1 No current facility-administered medications for this visit. Nursing Notes and Vital Signs reviewed. BP 130/80 (BP Site: Left Arm, BP Position: Sitting, BP Cuff Size: Regular) | Pulse 67 | Temp 37.2 C (99 F) (Tympanic) | Resp 12 | Ht 1.6 m (5' 2.99") | Wt 109.7 kg (241 lb 12.8 oz) | SpO2 97% | BMI 42.84 kg/m | BSA 2.21 m Physical Exam Constitutional: Appearance: Normal appearance. She is obese. HENT: Head: Normocephalic and atraumatic. Right Ear: Ear canal and external ear normal. A middle ear effusion is present. Left Ear: Ear canal and external ear normal. A middle ear effusion is present. Ears: Comments: Moderate Congestion behind TM's Nose: Nose normal. Mouth/Throat: Pharynx: Oropharynx is clear. Eyes: Extraocular Movements: Extraocular movements intact. Conjunctiva/sclera: Conjunctivae normal. Pupils: Pupils are equal, round, and reactive to light. Cardiovascular: Rate and Rhythm: Normal rate and regular rhythm. Pulses: Normal pulses. Heart sounds: Normal heart sounds. Pulmonary: Effort: Pulmonary effort is normal. Breath sounds: Normal breath sounds. Abdominal: General: Abdomen is flat. Bowel sounds are normal. Palpations: Abdomen is soft. Musculoskeletal: General: Normal range of motion. Cervical back: Normal range of motion and neck supple. Skin: General: Skin is warm. Capillary Refill: Capillary refill takes less than 2 seconds. Neurological: General: No focal deficit present. Mental Status: She is alert and oriented to person, place, and time. Mental status is at baseline. Cranial Nerves: No cranial nerve deficit or facial asymmetry. Sensory: No sensory deficit. Motor: No weakness. Coordination: Coordination normal. Psychiatric: Mood and Affect: Mood normal. Behavior: Behavior normal. Thought Content: Thought content normal. Judgment: Judgment normal. ASSESSMENT: UTI symptoms (Primary) - URINALYSIS, POINT OF CARE Neg, No glucose - CULTURE, URINE, QUANTITATIVE - Advised Lotrimin Cream for Tinea rash as she has Vaginal Itch Acute non-recurrent frontal sinusitis - Loratadine 10 MG Oral Tablet (Claritin); Take 1 Tablet by mouth in the morning. - Fluticasone Propionate 50 MCG/ACT Nasal Suspension (Flonase); Administer 2 Sprays into each nostril in the morning. - Meclizine HCl 25 MG Oral Tablet (Antivert); Take 1 Tablet by mouth 3 times a day as needed for Dizziness. Vertigo - Loratadine 10 MG Oral Tablet (Claritin); Take 1 Tablet by mouth in the morning. - Fluticasone Propionate 50 MCG/ACT Nasal Suspension (Flonase); Administer 2 Sprays into each nostril in the morning. - Meclizine HCl 25 MG Oral Tablet (Antivert); Take 1 Tablet by mouth 3 times a day as needed for Dizziness. - Advised to make Appt in 2-3 days with PCP if Sx Persist Follow Up: Return if symptoms worsen or fail to improve, for Clinic Visit. | For: Clinic Visit Cornelius Cespedes PA-C [address] [address] documented in this encounter Nursing Notes * Meggan Berrios LPN - 11/10/2023 2:43 PM EDT Patient spelled last name and verbalized birthdate to verify identity. Chief Complaint Patient presents with Urinary Tract Infection Symptoms Dizziness Patient c/o of dizziness and UTI sxs for about two days. No burning or pain during urination but does c/o of itching. documented in this encounter Plan of Treatment Upcoming Encounters Date Type Department Care Team (Latest Contact Info) Description 12/03/2023 9:00 AM EDT Imaging Vascular Lab, [facility] 2nd [facility], [address] [place] [address] 12/11/2023 11:50 AM EDT Office Visit Vascular Surgery, [facility] [address] [place] [address] Sergei Frost MD [address] [place] [address] 01/07/2024 2:30 PM EDT Office Visit Cardiology, [facility] [address] [place] [address] Allyssa Cano, DO [address] [place] [address] 01/20/2024 1:45 PM EDT Hospital Encounter [facility], Operating Room [facility] [address] [place] [address] James Crain, DO [address] [place] [phone] 01/20/2024 1:45 PM EDT - 01/20/2024 2:10 PM EDT Surgery OR [facility], Operating Room [facility] [address] [place] [phone] James Crain, DO [address] [place] [phone] INJECTION SACROILIAC JOINT 02/18/2024 3:00 PM EDT Office Visit General Internal Medicine [facility] [address] [place] [address] [place] [address] Nessa Foreman MD [address] [facility] [place] [address] Pending Results Name Type Priority Associated Diagnoses Date /Time CULTURE, URINE, QUANTITATIVE Lab Routine UTI symptoms 11/10/2023 2:53 PM EDT Scheduled Procedures Name Priority Associated Diagnoses Date/Ti me INJECTION SACROILIAC JOINT Inflammation of sacroiliac joint (HCC) 01/20/2024 1:45 PM EDT ROBOTIC ARTHROPLASTY KNEE TOTAL Knee osteoarthritis COLONOSCOPY FLEXIBLE PROXIMAL DIAGNOSTIC Recall Encounter for screening colonoscopy Health Maintenance Due Date Last Done Comments Zoster Vaccines (2 of 3) 01/28/2012 12/03/2011 Depression Screening 09/06/2021 09/06/2020 COVID-19 Vaccine ( - season) 2022 03/08/2022, 04/03/2021, 06/23/2020, Additional history exists Diabetic Eye Exam 09/21/2023 09/20/2022, , 06/20/2021, Additional history exists Albumin/Creatinine Ratio 2023 023, 11/23/2021, 09/11/2017, Additional history exists CKD HGB USE SMARTSET 91956 11/15/202311/14, 11/14/2022, 07/11/2022, Additional history exists Influenza Vaccine (FLU shot) (#1) 2023 01/29/2023, 03/08/2022, 02/15/2021, Additional history exists GFR 01/17/2024 07/17/2023, 2 09/2022, 03/19/2022, Additional history exists HbA1c 01/17/2024 07/17/2023, 2 09/2022, 07/11/2022, Additional history exists Diabetic Foot Exam 01/30/2024 01/29/2023, 1 05/21/2020, 02/24/2020, Additional history exists CKD PHOS USE SMARTSET 59488 07/16/202406/21, 07/11/2022, 06/26/2021, Additional history exists DTaP,Tdap,and [...] this encounter Medical Devices Implanted Type Area Skein Drier Device Identifier Shelf Expiration Date Model / Serial / Lot Stent [id number] - [id number] [place] 1 on 01[place]29/[place] [facility] [place]: Renal Artery JNJ : [employer] 07/21/2012 [id number] / / [id number] Lens Intraoc 18.5 - [id number] - [id number] Implanted:Qty: 1 on 10/16/2018 by Jhonny Stanton MD at OR [facility] Left: Eye [employer] 02/19/2023 [id number] / [id number] / [id number] Lens Intraoc 18.0 - [id number] - [id number] Implanted:Qty: 1 on 10/28/2018 by Jhonny Stanton MD at OR [facility] Right: Eye [employer] 11/19/2022 [id number] / [id number] / documented as of this encounter Procedures Procedure Name Priority Date/Time Associated Diagnosis Comments URINALYSIS, POINT OF CARE (ENTER/EDIT) Routine 11/10/2023 2:50 PM EDT UTI symptoms documented in this encounter Results * (ABNORMAL) URINALYSIS, POINT OF CARE (ENTER/EDIT) (11/10/2023 2:50 PM EDT) Color, Urine Yellow Yellow or Light Yellow Clarity, Urine Cloudy(A) Clear Glucose, Urine Negative Negative mg/dL Bilirubin, Urine Negative Negative Ketone, Urine Negative Negative mg/dL Specific [place], Urine 1.015 1.003 - 1.030 Blood, Urine Negative Negative pH, Urine 7.0 5.0 - 7.5 units Protein, Urine 100(A) Negative mg/dL Urobilinogen, Urine 1.0 0.2 - 1.0 mg/dL Nitrite, Urine Negative Negative Esterase, Urine Small(A) Negative Urine 11/10/2023 2:50 PM EDT Cornelius Cespedes PA-C LAB POINT OF CARE TE ENTER/EDIT ORDERABLES documented in this encounter Visit Diagnoses Diagnosis UTI symptoms- Primary Other symptoms involving urinary system Acute non-recurrent frontal sinusitis Vertigo Dizziness and giddiness Inflammation of sacroiliac joint (HCC) Sacroiliitis, not [...] Advance Directives occurred with: Patient Care Teams Tipple Operator Relationship Specialty Start Date End Date Nessa Foreman MD [address] [place] [address] PCP - General Internal Medicine 05/11/10 documented as of this encounter
--- OUTSIDE RECORDS SUMMARY | 2024-01-06 01:52 | External Medical Summary | Summary of Care ---
Author Name Unknown Organization [facility] [address] [address] Phone [phone] Care Team Providers Care Gas And Oil Servicer Name Role Phone Nessa Foreman MD Primary Care Provider + Reason for Visit * Reason Onset Date Comments Test Results 11/26/2023 Encounter Details Date Type Department Care Team (Late st Contact Info) Description 11/26/2023 Telephone NephrologyPat [address] [place] [address] Esteban Okeefe MD 200 [facility] [place] [phone] Test Results Allergies Active Allergy Reactions Criticality Noted Date Comments Allopurinol Low 01/20/2007 Rash Sulfamethoxazole-Trimet hoprim 10/06/2015 Hallucinations, anxiety Metformin Diarrhea,Edema Other 09/06/2023 Penicillins 12/24/2000 hives documented as of this encounter (statuses as of 11/26/2023) Medications Medication Sig Dispensed Refills Start Date End Date Status VITAMIN D 2000 UNITS PO CAPS 1 CAPSULE DAILY 30 Cap 5 11/29/2011 Active ASPIRIN EC 81 MG PO TBECIndications:blo od flow Take 1 Tablet by mouth daily. Active Blood Glucose Monitoring Suppl (iBuyitBetter ULTRA SYSTEM) W/DEVICE KITIndications:DM type 2, goal A1c below 7 Use up to four times a day as directed/E11.9 1 Kit 0 02/04/2015 Active Deep Imaging TechnologiesTOUCH DELICA LANCETS 33G MISCIndications:Typ e 2 diabetes [...] Additional Information Patient not taking.Reported on 07/25/2023 HubHumanuch Ultra In Vitro Strip (Glucose Blood)Indications:T ype 2 diabetes mellitus with hemoglobin A1c goal of less than 7.0% ([facility]) USE 1 STRIP TO CHECK GLUCOSE ONCE TO TWICE DAILY DIRECTED 200 Strip 3 01/24/2022 Active ProAir HFA 108 (90 Base) MCG/ACT Inhalation Aerosol SolutionIndications :Wheezing Inhale 2 Puffs by mouth every 4 hours as needed for Wheezing. 18 g 3 04/07/2022 Active Mi-PayTouch Verio w/Device Kit Use as directed . 1 Kit 1 04/18/2022 Active Mi-PayToWesthouse UltraSoft Lancets Use as directed 4 times [...] stage 3, GFR 30-59 ml/min ([facility]) TAKE 1 CAPSULE BY MOUTH ONCE [...] goal of less than 7.0% ([facility]) Inject 1 mg under the skin [...] stage III (GFR 30-59 ml/min) ([facility]) TAKE 1 TABLET BY MOUTH IN [...] as of this encounter (statuses as of 11/26/2023) Active Problems Problem Noted Date Diagnosed Date [...] as of this encounter (statuses as of 11/26/2023) Resolved Problems Problem Noted Date Diagnosed Date Resolved Date Endometrial cancer 07/19/2022 Cancer Staging:Pathologic stage from 11/27/2016:FIGO Stage IA(pT1a, pN0, cM0) - Signed by Ronald Oliver MD on 07/20/2022 Overview: History 12/19/20 WATCH 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 [employer] Other*[id number] 06/19/2010 05/29/2016 Overview: Study Titile: Genomics Markers for Patients with Cardiovascular Disease Project # [id number] PI: Tara Purcell MD Please call [phone] with study related questions Hand Dermatitis 09/24/2007 01/10/2017 Gout 09/09/2006 10/17/2009 Dermatitis 02/07/2005 09/24/2007 Dyslipidemia, goal to be determined 05/08/2004 04/06/2009 Overview: Per Lipid Taxonomy. Vascular complications of renal artery 06/25/2002 01/10/2017 documented as of this encounter (statuses as of 11/26/2023) Immunizations Name Administration Dates Next Due COVID-19 [...] encounter Miscellaneous Notes * Telephone Encounter - Elizabeth Barrett LPN - 11/26/2023 4:20 PM EDT Pt is made aware of test results and recommendations below * Telephone Encounter - Elizabeth Barrett LPN - 11/26/2023 4:20 PM EDT ----- Message from Esteban Okeefe MD sent at 11/26/2023 1:49 PM EDT ----- GFR is still within the long-term range. Some proteinuria noted secondary to hypertension/renal artery stenosis. Other labs are stable/normal Continue same documented in this encounter Plan of Treatment Upcoming Encounters Date Type Department Care Team (Latest Contact Info) Description 11/27/2023 2:45 PM EDT Office Visit Orthopaedics, [facility] [address] [place] [address] Rene Bruno PA-C [address] [place] [address] [place] [address] 12/03/2023 9:00 AM EDT Imaging Vascular Lab, [facility] 2nd [facility], [address] [place] [address] 12/11/2023 11:50 AM EDT Office Visit Vascular Surgery, [facility] [address] [place] [address] Sergei Frost MD [address] [facility] [place] [address] 01/07/2024 2:30 PM EDT Office Visit Cardiology, [facility] [address] [place] [address] Jerry Cano, DO [address] [place] [address] 01/20/2024 1:45 PM EDT Hospital Encounter OR [facility], Operating Room [facility] [address] [place] [phone] James Crain, DO [address] [place] [phone] 01/20/2024 1:45 PM EDT - 01/20/2024 2:10 PM EDT Surgery OR [facility], Operating Room [facility] [address] [place] [phone] James Crain, DO [address] [place] [phone] INJECTION SACROILIAC JOINT 02/18/2024 3:00 PM EDT Office Visit General Internal Medicine [facility] Kelli Paulina [address] [facility] [place] [address] Nessa Foreman MD [address] [place] [address] Scheduled Procedures Name Priority Associated Diagnoses Date/Ti [...] Additional history exists CKD HGB USE SMARTSET 73544 11/24/202411/24, 11/25/2023, 11/14/2022, Additional history exists CKD PHOS USE SMARTSET 29803 11/24/2024 08/0 08/2023, 07/17/2023, 07/11/2022, Additional history [...] this encounter Medical Devices Implanted Type Area External Relations Manager Device Identifier Shelf Expiration Date Model / Serial / Lot Stent [id number] - [id number] Implanted:Qty: 1 on 01/29/2011 at [place] [facility] [place] Right: Renal Artery JN[place] : CORDIS [employer]OVASC[employer] 07/21/2012 [id number] / / [id number] Lens Intraoc 18.5 - [id number] - [id number] Implanted:Qty: 1 on 10/16/2018 by Jhonny Stanton MD at OR [facility] Left: Eye BAUSCH & LOMB 02/19/2023 [id number] / [id number] / [id number] Lens Intraoc 18.0 - [id number] - [id number] Implanted:Qty: 1 on 10/28/2018 by Jhonny Stanton MD at OR [facility] Right: Eye BAUSCH & LOMB 11/19/2022 [id number] / [id number] / documented as of this encounter Advance [...] Advance Directives occurred with: Patient Care Teams Gas And Oil Servicer Relationship Specialty Start Date End Date Nessa Foreman MD 200 [facility] [place] [address] PCP - General Internal Medicine 05/11/10 documented as of this encounter
--- OUTSIDE RECORDS SUMMARY | 2024-01-06 01:52 | External Medical Summary | Summary of Care ---
Author Name Unknown Organization [facility] Address [address] [facility] [place] [address] Phone [phone] Care Team Providers Care Gate Keeper Name Role Phone Nessa Foreman MD Primary Care Provider + Reason for Visit * Reason Onset Date Comments Scheduling 11/19/2023 Encounter Details Date Type Department Care Team (Late st Contact Info) Description 11/19/2023 Telephone Orthopaedics, [facility] [address] [place] [phone] Rene Bruno PA-C 310 [facility] [place] [address] Scheduling Allergies Active Allergy Reactions Criticality Noted Date Comments Allopurinol Low 01/20/2007 Rash Sulfamethoxazole-Trimet hopri 10/06/2015 Hallucinations, anxiety Metformin Diarrhea,Edema Other 09/06/2023 Penicillins 12/24/2000 hives documented as of this encounter (statuses as of 11/19/2023) Medications Medication Sig Dispensed Refills Start Date End Date Status VITAMIN D 2000 UNITS PO CAPS 1 CAPSULE DAILY 30 Cap 5 11/29/2011 Active ASPIRIN EC 81 MG PO TBECIndications:blo od flow Take 1 Tablet by mouth daily. Active Blood Glucose Monitoring Suppl ([employer] ULTRA SYSTEM) W/DEVICE KITIndications:DM type 2, goal A1c below 7 Use up to four times a day as directed/E11.9 1 Kit 0 02/04/2015 Active BioMicro SystemsTOUCH DELICA LANCETS 33G MISCIndications:Typ e 2 diabetes [...] only., Indications: water pill, Reported on 12/03/2022 LightPole Ultra In Vitro Strip (Glucose Blood)Indications:T ype 2 diabetes mellitus with hemoglobin A1c goal of less than 7.0% ([facility]) USE 1 STRIP TO CHECK GLUCOSE ONCE TO TWICE DAILY DIRECTED 200 Strip 3 01/24/2022 Active ProAir HFA 108 (90 Base) MCG/ACT Inhalation Aerosol SolutionIndications :Wheezing Inhale 2 Puffs by mouth every 4 hours as needed for Wheezing. 18 g 3 04/07/2022 Active Candid ioTouch Verio w/Device Kit Use as directed . 1 Kit 1 04/18/2022 Active Candid ioTouch UltraSoft Lancets Use as directed 4 times [...] stage 3, GFR 30-59 ml/min ([facility]) TAKE 1 CAPSULE BY MOUTH ONCE [...] goal of less than 7.0% ([facility]) Inject 1 mg under the skin [...] stage III (GFR 30-59 ml/min) ([facility]) TAKE 1 TABLET BY MOUTH IN [...] as of this encounter (statuses as of 11/19/2023) Active Problems Problem Noted Date Diagnosed Date [...] as of this encounter (statuses as of 11/19/2023) Resolved Problems Problem Noted Date Diagnosed Date Resolved Date Endometrial cancer 07/19/2022 Cancer Staging:Pathologic stage from 11/27/2016:FIGO Stage IA(pT1a, pN0, cM0) - Signed by Ronald Oliver MD on 07/20/2022 Overview: History 12/19/20 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 [employer] Card[employer] Other*[id number] 06/19/2010 05/29/2016 Overview: Study Titile: Genomics Markers for Patients with Cardiovascular Disease Project # [id number] PI: Tara Purcell MD Please call [phone] with study related questions Hand Dermatitis 09/24/2007 01/10/2017 Gout 09/09/2006 10/17/2009 Dermatitis 02/07/2005 09/24/2007 Dyslipidemia, goal to be determined 05/08/2004 04/06/2009 Overview: Per Lipid Taxonomy. Vascular complications of renal artery 06/25/2002 01/10/2017 documented as of this encounter (statuses as of 11/19/2023) Immunizations Name Administration Dates Next Due COVID-19 [...] encounter Miscellaneous Notes * Telephone Encounter - Sravani Ramsey RN - 11/19/2023 3:25 PM EDT Called to schedule iovera. Appointment offer is Monday, November 27, 2023 at !pm. Left message and call back number on voicemail. documented in this encounter Plan of Treatment Upcoming Encounters Date Type Department Care Team (Latest Contact Info) Description 12/03/2023 9:00 AM EDT Imaging Vascular Lab, [facility] 2nd Floor, [place] [address] [facility] [place] [address] 12/11/2023 11:50 AM EDT Office Visit Vascular Surgery, [facility] [address] [facility] [place] [address] Sergei Frost MD [address] [facility] [address] 01/07/2024 2:30 PM EDT Office Visit Cardiology, [facility] [address] [facility] [place] [address] Jerry Cano O, DO [address] [place] [address] 01/20/2024 1:45 PM EDT Hospital Encounter OR [facility], Operating Room [facility] [address] [place], [place] [phone] James Crain, DO [address] [place] [address] 01/20/2024 1:45 PM EDT - 01/20/2024 2:10 PM EDT Surgery OR [facility], Operating Room [facility] [address] [place] [phone] James Crain, DO [address] [place] [phone] INJECTION SACROILIAC JOINT 02/18/2024 3:00 PM EDT Office Visit General Internal Medicine [facility] [address] [facility] [place] [address] Nessa Foreman MD [address] [facility] [place] [address] Scheduled Procedures Name Priority Associated Diagnoses Date/Ti [...] Additional history exists CKD HGB USE SMARTSET 62616 11/15/202311/14, 11/14/2022, 07/11/2022, Additional history exists Influenza Vaccine (FLU shot) (#1) 2023 01/29/2023, 03/08/2022, 02/15/2021, Additional history exists GFR 01/17/2024 07/17/2023, 10/21, 03/19/2022, Additional history exists HbA1c 01/17/2024 07/17/2023, 10/21, 07/11/2022, Additional history exists Diabetic Foot Exam 01/30/2024 01/29/2023, 1 05/21/2020, 02/24/2020, Additional history exists CKD PHOS USE SMARTSET 11243 07/16/202406/21, 07/11/2022, 06/26/2021, Additional history exists DTaP,Tdap,and Td Vaccines (3 - Td or Tdap) 02/11/2028 02/10/2018, 01/01/2008 Pneumococcal Vaccine: 65+ Years Completed 08/05/2014, 11/01/2011, 05/12/2010 Hepatitis C Screening Completed 03/06/2017 HPV (Gardasil) Vaccine Aged Out No lo nger eligible based on patient's age to complete this topic Hepatitis B Vaccine Aged Out No longe r eligible based on patient's age to complete this topic MENINGOCOCCAL (MENACTRA/MENVEO) Aged Out No longer eligible based on patient's age to complete this topic documented as of this encounter Medical Devices Implanted Type Area Oven Laborer Device Identifier Shelf Expiration Date Model / Serial / Lot Stent [id number] - [id number] Implanted:Qty: 1 on 01/29/2011 at OR [facility] [place] Right: Renal Artery JNJ : [employer]IS [employer]OV[employer] 07/21/2012 [id number] / / [id number] Lens Intraoc 18.5 - [id number] - [id number] Implanted:Qty: 1 on 10/16/2018 by Jhonny Stanton MD at OR [facility] Left: Eye BAUSCH & LOMB 02/19/2023 [id number] / [id number] / [id number] Lens Intraoc 18.0 - [id number] - [id number] Implanted:Qty: 1 on 10/28/2018 by Jhonny Stanton MD at OR [facility] Right: Eye BAUSCH & LOMB 11/19/2022 [id number] / [id number] / documented as of this encounter Advance [...] Advance Directives occurred with: Patient Care Teams Gate Keeper Relationship Specialty Start Date End Date Nessa Foreman MD 200 [place] [address] PCP - General Internal Medicine 05/11/10 documented as of this encounter
--- OUTSIDE RECORDS SUMMARY | 2024-01-06 01:52 | External Medical Summary | Summary of Care ---
Author Name Unknown Organization [facility] Address [address] [facility] [place] [address] Phone [phone] Care Team Providers Care Drupal Web Developer Name Role Phone Nessa Foreman MD Primary Care Provider + Reason for Visit * Reason Comments Knee Pain Bilateral Encounter Details Date Type Department Care Team (Late st Contact Info) Description 11/27/2023 2:45 PM EDT Office Visit Orthopaedics, [facility] [address] [place] [address] Reen Bruno PA-C [address] [facility] [place] [address] Primary osteoarthritis of both knees*; Chronic pain of both knees Allergies Active Allergy Reactions Criticality Noted Date Comments Allopurinol Low 01/20/2007 Rash Sulfamethoxazole-Trimet hoprim 10/06/2015 Hallucinations, anxiety Metformin Diarrhea,Edema Other 09/06/2023 Penicillins 12/24/2000 hives documented as of this encounter (statuses as of 11/27/2023) Medications Medication Sig Dispensed Refills Start Date [...] Additional Information Patient not taking.Reported on 07/25/2023 OneTouch Ultra In Vitro Strip (Glucose Blood)Indications:T [...] directed . 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 [employer] Card[employer] Other*[id number] 06/19/2010 05/29/2016 Overview: Study Titile: Genomics Markers for Patients with Cardiovascular Disease Project # [id number] PI: Tara Purecll MD Please call [phone] with study related questions Hand Dermatitis 09/24/2007 01/10/2017 Gout 09/09/2006 10/17/2009 Dermatitis 02/07/2005 09/24/2007 Dyslipidemia, goal to be determined 05/08/2004 04/06/2009 Overview: Per Lipid Taxonomy. Vascular complications of renal artery 06/25/2002 01/10/2017 documented as of this encounter (statuses as of 11/27/2023) Immunizations Name Administration Dates Next Due COVID-19 [...] Progress Notes * Rene Bruno PA-C - 11/27/2023 3:11 PM EDT [facility] PROGRESS NOTE Name: Makenna Escobar Date: 11/27/2023 Time: 3:11 PM Diagnosis: Primary osteoarthritis of both knees. Chronic pain of both knees. History: Makenna is a very pleasant 78-year-old female who presents for Iovera nerve ablation for the bilateral knees today for treatment of her primary osteoarthritis and chronic pain. She has previously reported pain in the bilateral knees on the order of years, and has undergone previous treatmentsto include activity modification, corticosteroid injection, and viscosupplementation with some limited benefit. She was deemed to be a potentially favorable candidate for Iovera nerve ablation due toher desire to trial additional treatments before consideration of joint replacement surgery. Patient was agreeable and motivated to proceed with such treatment today after thorough discussion with Dr. Hammond. Physical exam: Bilateral knee: GAIT: antalgic, uses a cane Right Lower Extremity KNEE: no gross lesions or skin abnormalities; varus alignment; tenderness to palpation at patella and medial joint line; warm to touch; pain with extension, pain with flexion; 5/5 knee extension; special tests not done Left Lower Extremity KNEE: no gross lesions or skin abnormalities; varus alignment; tenderness to palpation at patella and medial joint line; warm to touch; pain with extension, pain with flexion; 5/5 knee extension; special tests not done Radiographs: Previous radiographs of the bilateral knees demonstrate evidence of severe tricompartmental osteoarthritis with genu varum deformity noted and osgs-bw-odrb articulation. Assessment: Bilateral knee DJD PROCEDURE NOTE: I have provided a significant and separately identifiable visit with today's procedure because the decision to perform the procedure was complex due to evaluation of multiple potential treatment options, including medications, home exercises, PT, weight loss, injections or surgical intervention. Consent The Iovera treatment was explained. Grandin on the Iovera system are inserted through the skin where the nerve is being treated. Inside the skin a small ice ball is formed at the tip of the needle. Patients may feel pressure, cold, warmth and/or tingling. With all procedures there may be benefits and a risk of side effects. Patients being treated with the Iovera system may experience certain reactions including, but not limited to, bruising, swelling, inflammation and/or redness, local pain and/or tenderness, and altered feeling at the site of treatment. Because all people are different, some patients pain will feel better right away, while for others there paying me only get a little better or not at all. Results may vary and can be affected by several things including the status of the overall health, the nerve anatomy, and the cause or causes ofpain. Patients may need more than one treatment. As with any medical treatment, patients may have side effects. These can include, but are not limited to, damage to the skin from being exposed to the cold, darkening or lightening of the skin, and dimples in the skin in the area being treated. Outside the areas of treatment, muscles may not work or move normally. Correct Patient: Yes Name of Procedure: Iovera ; bilateral knees Procedure Matches Verbalized Consent: Yes Correct Site: Yes Correct Laterality: Bilateral Site Marked: Site marking not indicated Correct Position: Yes Availability of Necessary Equipment: Yes Relevant Images Displayed: Images not required for this procedure Team Members Verbalize Agreement with Time Out: Yes List Staff Members Present: Sravani Ramsey RN; Rene Bruno PA-C Procedure Left knee Patient was placed in supine position. The patient's leg was laid straight and flat. Patient's skinwas shaved if necessary. Patient's skin was cleansed using isopropyl alcohol on the treatment lines. Target Nerves were identified using anatomical landmarks. Measurements were obtained and a treatment line was drawn for the anterior femoral cutaneous nerve (AFCN, MFCN, LFCN) as follows: Marked center of the patella Measured from patella to inguinal crease; calculate 1/3 Starting at patella, measured the 1/3 calculation and marked Mary a dotted line on each side of the patella Connected the dotted lines, at the 1/3 juvenal Measurements were obtained and a treatment line was drawn for the infrapatellar saphenous nerves (ISN) as follows: Then marked the lower pole of the patella; drawing a line 5 cm medial of the patella The tibial tubercle was identified; marked the bottom of the tibial tubercle; mary a line 5 cm medial Connected the two lines Patient's skin was anesthetized using 10 mL of 1% lidocaine. After the anesthetic was administered, the Iovera 309 Smart tip cryoneurolysis needle was inserted into AFCN, MFCN, LFNC, and the treatment was initiated. At the termination of each treatment cycle, the needle was removed. This was repeated a total of 12 times. At the termination of the treatment, the cryoneurolysis needle was removed. Attention was then directed to the 2 branches of the ISN. Patient's skin was anesthetized using 7 mL of 1% lidocaine. After the anesthetic was administered, the Iovera 309 Smart tip cryoneurolysis needle was inserted into the ISN treatment area and the treatment was initiated. At the termination of each treatment cycle, the needle was removed. This was repeated a total of 9 times. Right knee Patient was placed in supine position. The patient's leg was laid straight and flat. Patient's skinwas shaved if necessary. Patient's skin was cleansed using isopropyl alcohol on the treatment lines. Target Nerves were identified using anatomical landmarks. Measurements were obtained and a treatment line was drawn for the anterior femoral cutaneous nerve (AFCN, MFCN, LFCN) as follows: Marked center of the patella Measured from patella to inguinal crease; calculate 1/3 Starting at patella, measured the 1/3 calculation and marked Mary a dotted line on each side of the patella Connected the dotted lines, at the 1/3 juvenal Measurements were obtained and a treatment line was drawn for the infrapatellar saphenous nerves (ISN) as follows: Then marked the lower pole of the patella; drawing a line 5 cm medial of the patella The tibial tubercle was identified; marked the bottom of the tibial tubercle; mary a line 5 cm medial Connected the two lines Patient's skin was anesthetized using 10 mL of 1% lidocaine. After the anesthetic was administered, the Iovera 309 Smart tip cryoneurolysis needle was inserted into AFCN, MFCN, LFNC, and the treatment was initiated. At the termination of each treatment cycle, the needle was removed. This was repeated a total of 12 times. At the termination of the treatment, the cryoneurolysis needle was removed. Attention was then directed to the 2 branches of the ISN. Patient's skin was anesthetized using 6 mL of 1% lidocaine. After the anesthetic was administered, the Iovera 309 Smart tip cryoneurolysis needle was inserted into the ISN treatment area and the treatment was initiated. At the termination of each treatment cycle, the needle was removed. This was repeated a total of 10 times. Patient's skin was cleansed, and the treatment site was covered with a bandage. Patient tolerated procedure well. The patient was instructed to stand and mobilize the knee joint. Post treatment assessment performed. - Follow-up: 1 month Telephonic - All questions answered today. Royce Hammond DO This chart was completed in part utilizing [employer] Speech Voice Recognition Software. Grammatical errors, random word insertions, pronoun errors, and incomplete sentences are an occasional consequence of this system due to software limitations, ambient noise, and hardware issues. Any formal questions or concerns about the content, text, or information contained within the body of this dictation should be directly addressed to the provider for clarification. documented in this encounter Nursing Notes * Sravani Ramsey, RN - 11/27/2023 2:58 PM EDT Here for iovera to bilateral knees. Rates knee pain as 7-8/10. States she fell on Saturday. documented in this encounter Plan of Treatment Upcoming Encounters Date Type Department Care Team (Latest Contact Info) Description 12/03/2023 9:00 AM EDT Imaging Vascular Lab, [facility] 2nd Floor, [place] [address] [place] [address] 12/11/2023 11:50 AM EDT Office Visit Vascular Surgery, [facility] [address] [place] [address] Sergei Frost MD [address] [place] [address] 01/02/2024 12:30 PM EDT Telemedicine Orthopaedics [facility] [address] [place] [address] Rene Bruno PA-C [address] [place] [address] [place] [address] 01/07/2024 2:30 PM EDT Office Visit Cardiology, [facility] [address] [place] [address] Jerry Cano, DO [address] [place] [phone] 01/20/2024 1:45 PM EDT Hospital Encounter OR [facility], Operating Room [facility] [address] [place] [phone] James Crain, [address] [place] [phone] 01/20/2024 1:45 PM EDT - 01/20/2024 2:10 PM EDT Surgery OR [facility], Operating Room [facility] [address] [place] [address] James Crain, DO [address] [place] [phone] INJECTION SACROILIAC JOINT 02/18/2024 3:00 PM EDT Office Visit [facility] [place] [address] [facility] [place] [address] Nessa Foreman MD [address] [facility] [place] [address] Scheduled Procedures Name Priority Associated Diagnoses Date/Ti [...] Additional history exists CKD HGB USE SMARTSET 62910 11/24/202411/24, 11/25/2023, 11/14/2022, Additional history exists CKD PHOS USE SMARTSET 11488 11/24/2024 08/0 08/2023, 07/17/2023, 07/11/2022, Additional history [...] this encounter Medical Devices Implanted Type Area Cogeneration Technician Device Identifier Shelf Expiration Date Model / Serial / Lot Stent [id number] Frank [id number] - [id number] Implanted:Qty: 1 on 01/29/2011 [place] [facility]: Renal Artery JNJ : CORDIS [employer] 07/21/2012 [id number] / / [id number] Lens Intraoc 18.5 - [id number] - [id number] Implanted:Qty: 1 on 10/16/2018 by Jhonny Stanton MD at OR [facility] Left: Eye BAUSCH & LOMB 02/19/2023 [id number] / [id number] / [id number] Lens Intraoc 18.0 - [id number] - [id number] Implanted:Qty: 1 on 10/28/2018 by Jhonny Stanton MD at OR [facility] Right: Eye BAUSCH & LOMB 11/19/2022 [id number] / [id number] / documented as of this encounter Visit [...] Advance Directives occurred with: Patient Care Teams Drupal Web Developer Relationship Specialty Start Date End Date Nessa Foreman MD [address] [facility] [place] [address] PCP - General Internal Medicine 05/11/10 documented as of this encounter
--- OUTSIDE RECORDS SUMMARY | 2024-01-06 01:52 | External Medical Summary ---
Author Name Unknown Address Unknown Organization K01:[facility] [place] - [address] [place] [address] Laboratory Report Ordering Provider Test Date Status ROSALIND PARDO 11/25/2023 14:21:51 Final Normal: <30 mg/g creatinine< br/>High: 30-300 mg/g creatinine
Very High: >300 mg/g creatinine
Nephrotic: >2200 mg/g creatinine Observation Date Value Abnormality Reference (Units ) Status Albumin, Urine 11/25/2023 14:21:51 36.50 (mg/dL) Final Creatinine, Urine 11/25/2023 14:21:51 65 (mg/dL) Final Albumin/Creatinine [Mass Ratio] in Urine 11/25/2023 14:21:51 562 Above high normal <30 (mg/g Creat) Final Performing Location [facility] - [facility] [address] [place] [address]
--- OUTSIDE RECORDS SUMMARY | 2024-01-06 01:52 | External Medical Summary | Summary of Care ---
Author Name Unknown Organization [facility] Address [address] [facility] [place] [address] Phone [phone] Care Team Providers Care Casing Runner Name Role Phone Nessa Foreman MD Primary Care Provider + Encounter Details Date Type Department Care Team (Late st Contact Info) Description 11/12/2023 Population Health External Data Unspecified Department Allergies Active Allergy Reactions Criticality Noted Date Comments Allopurinol Low 01/20/2007 Rash Sulfamethoxazole-Trimet hoprim 10/06/2015 Hallucinations, anxiety Metformin Diarrhea,Edema Other 09/06/2023 Penicillins 12/24/2000 hives documented as of this encounter (statuses as of 2023) Medications Medication Sig Dispensed Refills Start Date [...] hemoglobin A1c goal of less than 7.0% ([facility]) Test up to twice daily DX E [...] only., Indications: water pill, Reported on 12/03/2022 Slingjotuch Ultra In Vitro Strip (Glucose Blood)Indications:T ype 2 diabetes mellitus with hemoglobin A1c goal of less than 7.0% ([facility]) USE 1 STRIP TO CHECK GLUCOSE ONCE TO TWICE DAILY DIRECTED 200 Strip 3 01/24/2022 Active ProAir HFA 108 (90 Base) MCG/ACT Inhalation Aerosol SolutionIndications :Wheezing Inhale 2 Puffs by mouth every 4 hours as needed for Wheezing. 18 g 3 04/07/2022 Active [employer] Verio w/Device Kit Use as directed . 1 Kit 1 04/18/2022 Active Slingjotuch UltraSoft Lancets Use as directed 4 times [...] kidney disease) stage 3, GFR 30-59 ml/min ([facility]) TAKE 1 CAPSULE BY MOUTH ONCE DAILY [...] hemoglobin A1c goal of less than 7.0% ([facility]) Inject 1 mg under the skin once [...] disease, chronic, stage III (GFR 30-59 ml/min) ([facility]) TAKE 1 TABLET BY MOUTH IN THE [...] as of this encounter (statuses as of 2023) Active Problems Problem Noted Date Diagnosed Date [...] as of this encounter (statuses as of 2023) Resolved Problems Problem Noted Date Diagnosed Date Resolved Date Endometrial cancer 07/19/2022 Cancer Staging:Pathologic stage from 11/27/2016:FIGO Stage IA(pT1a, pN0, cM0) - Signed by Ronald Oliver MD on 07/20/2022 Overview: History 12/19/20 TRAFFIC SUPERVISOR/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 [employer] Other*[id number] 06/19/2010 05/29/2016 Overview: Study Titile: Genomics Markers for Patients with Cardiovascular Disease Project # [id number] PI: Tara Purcell MD Please call [phone] with study related questions Hand Dermatitis 09/24/2007 01/10/2017 Gout 09/09/2006 10/17/2009 Dermatitis 02/07/2005 09/24/2007 Dyslipidemia, goal to be determined 05/08/2004 04/06/2009 Overview: Per Lipid Taxonomy. Vascular complications of renal artery 06/25/2002 01/10/2017 documented as of this encounter (statuses as of 2023) Immunizations Name Administration Dates Next Due COVID-19 [...] 12/03/2023 9:00 AM EDT Imaging Vascular Lab, [facility] 2nd [facility] [address] [place] [address] 12/11/2023 11:50 AM EDT Office Visit Vascular Surgery, [facility] [address] [place] [address] Sergei Frost MD [address] [place] [address] 01/07/2024 2:30 PM EDT Office Visit Cardiology, [facility] [address] [place] [address] Jerry Cano, DO [address] [place] [address] 01/20/2024 1:45 PM EDT Hospital Encounter OR [facility], Operating Room [facility] [address] [place] [phone] James Crain, DO [address] [place] [phone] 01/20/2024 1:45 PM EDT - 01/20/2024 2:10 PM EDT Surgery OR [facility], Operating Room [facility] [address] [place] [address] James Crain, DO [address] [place] [phone] INJECTION SACROILIAC JOINT 02/18/2024 3:00 PM EDT Office Visit General Internal Medicine [facility] [place] [address] [facility] [place] [address] Nessa Foreman MD [address] [facility] [place] [address] Scheduled Procedures Name Priority Associated Diagnoses Date/Ti [...] Additional history exists CKD HGB USE SMARTSET 60640 11/15/202311/14, 11/14/2022, 07/11/2022, Additional history exists Influenza Vaccine (FLU shot) (#1) 2023 01/29/2023, 03/08/2022, 02/15/2021, Additional history exists GFR 01/17/2024 07/17/2023, 10/21, 03/19/2022, Additional history exists HbA1c 01/17/2024 07/17/2023, 072 09/2022, 07/11/2022, Additional history exists Diabetic Foot Exam 01/30/2024 01/29/2023, 1 05/21/2020, 02/24/2020, Additional history exists CKD PHOS USE SMARTSET 04751 07/16/202406/21 10/2023, 07/11/2022, 06/26/2021, Additional history exists DTaP,Tdap,and Td [...] this encounter Medical Devices Implanted Type Area Director Safety Council Device Identifier Shelf Expiration Date Model / Serial / Lot Stent [id number] Frank [id number] - [id number] Implanted:Qty: 1 on 01/29/[address] [facility] [place] Right: Renal Artery JNJ : CORDIS ENDOVASCULAR 07/21/2012 [id number] / / [id number] Lens Intraoc 18.5 - [id number] - [id number] Implanted:Qty: 1 on 10/16/2018 by Jhonny Stanton MD at OR [facility] Left: Eye BAUSCH & LOMB 02/19/2023 [id number] / [id number] / [id number] Lens Intraoc 18.0 - [id number] - [id number] Implanted:Qty: 1 on 10/28/2018 by Jhonny Stanton MD at OR [facility] Right: Eye BAUSCH & LOMB 11/19/2022 [id number] / [id number] / documented as of this encounter Advance [...] Advance Directives occurred with: Patient Care Teams Casing Runner Relationship Specialty Start Date End Date Nessa Foreman MD [address] [place] [address] PCP - General Internal Medicine 05/11/10 documented as of this encounter
--- OUTSIDE RECORDS SUMMARY | 2024-01-06 01:52 | External Medical Summary ---
Author Name Unknown Address Unknown Organization K09:[facility] [place] [address] Laboratory Report Ordering Provider Test Date Status ROSALIND PARDO 11/25/2023 14:21:51 Final Observation Date Value Abnormality Reference (Units ) Status SYNC LEUKOCYTES IN BLOOD BY AUTOMATED COUNT 11/25/2023 14:21:51 11.33 Above high normal 4.00-10.80 (K/uL) Final Segs 11/25/2023 14:21:51 51.5 40.0-75.0 (%) Final Lymphs % 11/25/2023 14:21:51 30.8 18.0-42.0 (%) Final Monos 11/25/2023 14:21:51 11.0 1.0-11.0 (%) Final Eosinophils 11/25/2023 14:21:51 6.0 0.0-6.0 (%) Final Basos 11/25/2023 14:21:51 0.7 0.0-2.0 (%) Final Absolute Segs 11/25/2023 14:21:51 5.83 1.80-7.70 (K/uL) Final Lymphs, absolute 11/25/2023 14:21:51 3.49 1.00-4.80 (K/ul) Final Monos, Abs 11/25/2023 14:21:51 1.25 Above high normal 0.00-1.10 (K/uL) Final Eos, Abs 11/25/2023 14:21:51 0.68 0.00-0.70 (K/uL) Final Basos, Abs 11/25/2023 14:21:51 0.08 0.00-0.20 (K/uL) Final Performing Location [facility] [place] [address]
--- OUTSIDE RECORDS SUMMARY | 2024-01-06 01:52 | External Medical Summary ---
Author Name Unknown Address Unknown Organization K01:[facility] [place] - [address] [place] [address] Laboratory Report Ordering Provider Test Date Status ROSALIND PARDO 11/25/2023 14:21:51 Final Observation Date Value Abnormality Reference (Units ) Status Triglyceride 11/25/2023 14:21:51 183 Above high normal <=174 (mg/dL) Final Triglyceride Reference Range s (mg/dL):
<150 Acceptable
150-174 Borderline high
175-499 High
>=500 Very high Cholesterol 11/25/2023 14:21:51 153 <200 (mg /dL) Final Total Cholesterol Reference Ranges (mg/dL):
<200 Desirable
200-239 Borderline high
>=240 High HDL 11/25/2023 14:21:51 47 Below low normal >49 (mg/dL) Final HDL Cholesterol Reference Ra nges (mg/dL):
>=60 High (Desirable)
<50 Low (Undesirable) For Females
<40 Low (Undesirable) For Males NON-HDL CHOLESTEROL 11/25/2023 14:21:51 106 <=159 (mg/dL) Final Non-HDL Cholesterol Referenc e Range (mg/dL):
<100 Target level for high risk ASCVD patient
<130 Optimal for general population
130-159 Near optimal for general population
160-189 Borderline High
190-219 High
>=220 Very High Performing Location [facility] [place] - [address] [place] [address]
--- OUTSIDE RECORDS SUMMARY | 2024-01-06 01:52 | External Medical Summary | Summary of Care ---
Author Name Unknown Organization [facility] Address [address] [facility] [place] [address] Phone [phone] Care Team Providers Care Boss Dyer Name Role Phone Nessa Foreman MD Primary Care Provider + Reason for Visit * Reason Onset Date Comments Pre Cert/Prior Auth 11/22/2023 [facility] Encounter Details Date Type Department Care Team (Late st Contact Info) Description 11/22/2023 Telephone Orthopaedics, [facility] [address] [place] [address] [place] [address] Rene Bruno PA-C [address] [place] [phone] Pre Cert/Prior Auth ([facility]) Allergies Active Allergy Reactions Criticality Noted Date Comments Allopurinol Low 01/20/2007 Rash Sulfamethoxazole-Trimet hoprim 10/06/2015 Hallucinations, anxiety Metformin Diarrhea,Edema Other 09/06/2023 Penicillins 12/24/2000 hives documented as of this encounter (statuses as of 11/22/2023) Medications Medication Sig Dispensed Refills Start Date End Date Status VITAMIN D 2000 UNITS PO CAPS 1 CAPSULE DAILY 30 Cap 5 11/29/2011 Active ASPIRIN EC 81 MG PO TBECIndications:blo od flow Take 1 Tablet by mouth daily. Active Blood Glucose Monitoring Suppl (BALALIKEA ULTRA SYSTEM) W/DEVICE KITIndications:DM type 2, goal A1c below 7 Use up to four times a day as directed/E11.9 1 Kit 0 02/04/2015 Active IP FabricsTOUCH DELICA LANCETS 33G MISCIndications:Typ e 2 diabetes [...] only., Indications: water pill, Reported on 12/03/2022 trend.ly Ultra In Vitro Strip (Glucose Blood)Indications:T ype 2 diabetes mellitus with hemoglobin A1c goal of less than 7.0% (HCC) USE 1 STRIP TO CHECK GLUCOSE ONCE TO TWICE DAILY DIRECTED 200 Strip 3 01/24/2022 Active ProAir HFA 108 (90 Base) MCG/ACT Inhalation Aerosol SolutionIndications :Wheezing Inhale 2 Puffs by mouth every 4 hours as needed for Wheezing. 18 g 3 04/07/2022 Active FanKaveTouch Verio w/Device Kit Use as directed . 1 Kit 1 04/18/2022 Active FanKaveTouch UltraSoft Lancets Use as directed 4 times [...] kidney disease) stage 3, GFR 30-59 ml/min ([facility]) TAKE 1 CAPSULE BY MOUTH ONCE DAILY [...] A1c goal of less than 7.0% ([facility]) Inject 1 mg under the skin once [...] chronic, stage III (GFR 30-59 ml/min) (HCC) TAKE 1 TABLET BY MOUTH IN THE [...] as of this encounter (statuses as of 11/22/2023) Active Problems Problem Noted Date Diagnosed Date [...] as of this encounter (statuses as of 11/22/2023) Resolved Problems Problem Noted Date Diagnosed Date Resolved Date Endometrial cancer 07/19/2022 Cancer Staging:Pathologic stage from 11/27/2016:FIGO Stage IA(pT1a, pN0, cM0) - Signed by Ronald Oliver MD on 07/20/2022 Overview: History 12/19/20 MARRIAGE AND FAMILY COUNSELOR/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 [employer] Other*[id number] 06/19/2010 05/29/2016 Overview: Study Titile: Genomics Markers for Patients with Cardiovascular Disease Project # [id number] PI: Tara Purcell MD Please call [phone] with study related questions Hand Dermatitis 09/24/2007 01/10/2017 Gout 09/09/2006 10/17/2009 Dermatitis 02/07/2005 09/24/2007 Dyslipidemia, goal to be determined 05/08/2004 04/06/2009 Overview: Per Lipid Taxonomy. Vascular complications of renal artery 06/25/2002 01/10/2017 documented as of this encounter (statuses as of 11/22/2023) Immunizations Name Administration Dates Next Due COVID-19 [...] encounter Miscellaneous Notes * Telephone Encounter - Moises Fajardo LPN - 11/22/2023 1:43 PM EDT Call placed to [facility] re: [facility]. No auth needed. Ref #[id number] documented in this encounter Plan of Treatment Upcoming Encounters Date Type Department Care Team (Latest Contact Info) Description 11/25/2023 1:40 PM EDT Office Visit Nephrology, Pat Pereira [address] [place] [address] Esteban Okeefe MD [address] [place] [address] 11/27/2023 2:45 PM EDT Office Visit Orthopaedics, [facility] [address] [place] [address] Rene Bruno PA-C [address] [place] [address] [place] [address] 12/03/2023 9:00 AM EDT [facility] [address] [place] [address] 12/11/2023 11:50 AM EDT Office Visit Vascular Surgery, [facility] [address] [place] [address] Sergei Frost MD [address] [place] [address] 01/07/2024 2:30 PM EDT Office Visit Cardiology, [facility] [address] [place] [address] Jerry Cano, DO [address] [place] [address] 01/20/2024 1:45 PM EDT Hospital Encounter OR [facility], Operating Room [facility] [address] [place] [phone] Jaems Crain DO [address] [place] [address] 01/20/2024 1:45 PM EDT - 01/20/2024 2:10 PM EDT Surgery OR [facility], Operating Room [facility] [address] [place] [phone] James Crain DO [address] [place] [phone] INJECTION SACROILIAC JOINT 02/18/2024 3:00 PM EDT Office Visit General Internal Medicine Gr[facility] Kelli [place] [address] [place] [address] Nessa Foreman MD [address] [place] [address] Scheduled Procedures Name Priority Associated Diagnoses Date/Ti [...] Additional history exists CKD HGB USE SMARTSET 51088 11/15/202311/14, 11/14/2022, 07/11/2022, Additional history exists Influenza Vaccine (FLU shot) (#1) 2023 01/29/2023, 03/08/2022, 02/15/2021, Additional history exists GFR 01/17/2024 07/17/2023, 2 09/2022, 03/19/2022, Additional history exists HbA1c 01/17/2024 07/17/2023, 10/21, 07/11/2022, Additional history exists Diabetic Foot Exam 01/30/2024 01/29/2023, 1 05/21/2020, 02/24/2020, Additional history exists CKD PHOS USE SMARTSET 18343 07/16/202406/21, 07/11/2022, 06/26/2021, Additional history exists DTaP,Tdap,and [...] this encounter Medical Devices Implanted Type Area Rollway Worker Device Identifier Shelf Expiration Date Model / Serial / Lot Stent [id number] Frank [id number] - [id number] Implanted:Qty: 1 on 01/29/2011 at [place] [facility] [place] Right: Renal Artery [place] : CORDIS ENDOVASCULAR 07/21/2012 [id number] / / [id number] Lens Intraoc 18.5 - [id number] - [id number] Implanted:Qty: 1 on 10/16/2018 by Jhonny Stanton MD at OR [facility] Left: Eye BAUSCH & LOMB 02/19/2023 [id number] / [id number] / [id number] Lens Intraoc 18.0 - [id number] - [id number] Implanted:Qty: 1 on 10/28/2018 by Jhonny Stanton MD at OR [facility] Right: Eye BAUSCH & LOMB 11/19/2022 [id number] / [id number] / documented as of this encounter Advance [...] Advance Directives occurred with: Patient Care Teams Boss Dyer Relationship Specialty Start Date End Date Nessa Foreman MD [address] [place], [place] [address] [address] PCP - General Internal Medicine 05/11/10 documented as of this encounter
--- OUTSIDE RECORDS SUMMARY | 2024-01-06 01:52 | External Medical Summary | Summary of Care ---
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; Kidney disease, chronic, stage III (GFR 30-59 ml/min) ([facility]) Allergies Active Allergy Reactions Criticality Noted Date Comments Allopurinol Low 01/20/2007 Rash Sulfamethoxazole-Trimet hoprim 10/06/2015 Hallucinations, anxiety Metformin Diarrhea,Edema Other 09/06/2023 Penicillins 12/24/2000 hives documented as of this encounter (statuses as of 11/07/2023) Medications Medication Sig Dispensed Refills Start Date End Date Status VITAMIN D 2000 UNITS PO CAPS 1 CAPSULE DAILY 30 Cap 5 2 Active ASPIRIN EC [...] THE DAY 90 Capsule 1 2 Active Additional Information Patient taking differently: Indications: stomach, Reported on 08/06/2022 Zoster Vac Recomb Adjuvanted 50 MCG/0.5ML Intramuscular Suspension Reconstituted (Shingrix) Inject 0.5 mL into a large muscle now and repeat dose in 60 to 180 days 1 Each 1 2 Active Additional Information Patient not taking.Reported on 07/25/2023 Furosemide 20 MG Oral Tablet (Lasix)Indication s:HTN, goal below 140/90 Take by mouth 4 Tablets in the morning. 360 Tablet 3 2 Active Additional Information Patient taking differently:80 mg Oral Daily(AM),Taking 40mg daily only., Indications: water pill, Reported on 12/03/2022 RetroSense Therapeuticsuch Ultra In Vitro Strip (Glucose Blood)Indications :Type 2 diabetes mellitus with hemoglobin A1c goal of less than 7.0% (HCC) USE 1 STRIP TO CHECK GLUCOSE ONCE TO TWICE DAILY DIRECTED 200 Strip 3 2 Active ProAir HFA 108 (90 Base) MCG/ACT Inhalation Aerosol SolutionIndicatio ns:Wheezing Inhale 2 Puffs by mouth every 4 hours as needed for Wheezing. 18 g 3 2 Active OneTouch Verio w/Device Kit Use as directed . 1 Kit 1 2 Active OneTouch UltraSoft Lancets Use as directed 4 times a day as needed for Hyperglycemia (high sugar). Use up to four times a day as directed 100 Each 3 2 Active Triamcinolone Acetonide 0.025 % External Ointment (Aristocort)Indic ations:Contact dermatitis USE SPARINGLY NIGHTLY FOR TWO WEEKS, THEN NEEDED. LITTLE IS EFFECTIVE 60 g 3 3 Active OneTouch Verio In Vitro Strip (Glucose Blood) Use up to 4 times a day E11.9 100 Strip 11 3 Active Calcitriol 0.25 MCG Oral Capsule (Rocaltrol)Indica tions:CKD (chronic kidney disease) stage 3, GFR 30-59 ml/min ([facility]) TAKE 1 CAPSULE BY MOUTH ONCE [...] THE MORNING 90 Tablet 1 4 Active Gabapentin 400 MG Oral Capsule (Neurontin)Indica tions:Abnormal CT of the abdomen,Spinal stenosis of lumbar region without neurogenic claudication TAKE 1 CAPSULE BY MOUTH THREE TIMES DAILY (MORNING, NOON, AND BEFORE BEDTIME) 270 Capsule 1 4 Active Metoprolol Succinate ER 25 MG Oral Tablet Extended Release 24 Hour (Toprol XL) Take two tablets in AM and one tablet in evening. 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 As needed for gout. 30 Tablet 1 3 11/07/19 24 Discontinued documented as of this encounter (statuses as of 11/07/2023) Active Problems Problem Noted Date Diagnosed Date [...] as of this encounter (statuses as of 11/07/2023) Resolved Problems Problem Noted Date Diagnosed Date Resolved Date Endometrial cancer 07/19/2022 Cancer Staging:Pathologic stage from 11/27/2016:FIGO Stage IA(pT1a, pN0, cM0) - Signed by Ronald Oliver MD on 07/20/2022 Overview: History 12/19/20 RESEARCH PROFESSIONAL/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 [employer] Other*[id number] 06/19/2010 05/29/2016 Overview: Study Titile: Genomics Markers for Patients with Cardiovascular Disease Project # [id number] PI: Tara Purcell MD Please call [phone] with study related questions Hand Dermatitis 09/24/2007 01/10/2017 Gout 09/09/2006 10/17/2009 Dermatitis 02/07/2005 09/24/2007 Dyslipidemia, goal to be determined 05/08/2004 04/06/2009 Overview: Per Lipid Taxonomy. Vascular complications of renal artery 06/25/2002 01/10/2017 documented as of this encounter (statuses as of 11/07/2023) Immunizations Name Administration Dates Next Due COVID-19 [...] Telephone Encounter - Nessa Foreman MD - 11/07/2023 8:14 AM EDTSigned Prescriptions: Disp Refills Colchicine 0.6 MG Oral Tablet 30 Tab*0 Sig: TAKE 1 TABLET BY MOUTH IN THE MORNING NEEDED FOR GOUT Authorizing Provider: NESSA FOREMAN * Telephone Encounter - Bernice Dhaliwal [facility] - 11/07/2023 5:26 AM EDTPending Prescriptions: Disp Refills Colchicine 0.6 MG Oral Tablet 30 Tab*0 Sig: Take 1 Tablet by mouth in the morning. As needed for gout. * Telephone Encounter - Bernice Dhaliwal RP - 11/07/2023 5:25 AM EDT Patient only takes Colchicine as needed Please approve if appropriate Thank You, Bernice Dhaliwal [facility] Clinical Pharmacist [facility] [phone] 11/07/2023, 5:26 AM documented in this encounter Plan of Treatment Upcoming Encounters Date Type Department Care Team (Latest Contact Info) Description 12/03/2023 9:00 AM EDT Imaging Vascular Lab, [facility] 2nd Floor, [place] [address] [place] [address] 12/11/2023 11:50 AM EDT Office Visit Vascular Surgery, [facility] [address] [place] [address] Sergei Frost MD [address] [place] [address] 01/07/2024 2:30 PM EDT Office Visit Cardiology, [facility] [address] [place] [address] Jerry Cano, DO [address] [place] [address] 01/20/2024 1:45 PM EDT Hospital Encounter OR [facility], Operating Room [facility] [address] [place] [address] James Crain, [address] [place] [address] 01/20/2024 1:45 PM EDT - 01/20/2024 2:10 PM EDT Surgery OR [facility], Operating Room [facility] [address] [place] [address] James Crain, [address] [place] [address] INJECTION SACROILIAC JOINT 02/18/2024 3:00 PM EDT Office Visit General Internal Medicine [facility] [address] [facility] [place] [address] Nessa Foreman MD [address] [facility] [place] [address] Scheduled Procedures Name Priority Associated Diagnoses Date/Ti [...] Additional history exists CKD HGB USE SMARTSET 23965 11/15/202311/14, 11/14/2022, 07/11/2022, Additional history exists Influenza Vaccine (FLU shot) (#1) 2023 01/29/2023, 03/08/2022, 02/15/2021, Additional history exists GFR 01/17/2024 07/17/2023, 10/21, 03/19/2022, Additional history exists HbA1c 01/17/2024 07/17/2023, 10/21, 07/11/2022, Additional history exists Diabetic Foot Exam 01/30/2024 01/29/2023, 1 05/21/2020, 02/24/2020, Additional history exists CKD PHOS USE SMARTSET 95633 07/16/20242 10/2023, 07/11/2022, 06/26/2021, Additional history exists DTaP,Tdap,and [...] this encounter Medical Devices Implanted Type Area Arch Support Technician Device Identifier Shelf Expiration Date Model / Serial / Lot Stent [id number] Frank [id number] - [id number] Implanted:Qty: 1 on 01/29/[address] 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
--- OUTSIDE RECORDS SUMMARY | 2024-01-06 01:52 | External Medical Summary | Summary of Care ---
Author Name Unknown Organization [facility] Address [address] [place] [address] Phone [phone] Care Team Providers Care Instructional Material Director Name Role Phone Nessa Foreman MD Primary Care Provider + Reason for Visit * Reason Comments Return Visit Chronic Kidney Disease (CKD) Hypertension Encounter Details Date Type Department Care Team (Late st Contact Info) Description 11/25/2023 1:40 PM EDT Office Visit Nephrology, Pat Pereira [address] [place] [id number] Esteban Okeefe MD [address] [facility] [place] [address] Stage 3a chronic kidney disease (HCC)*; HTN, goal below 140/90; SANTOS (renal artery stenosis) (HCC) Allergies Active Allergy Reactions Criticality Noted [...] Additional Information Patient not taking.Reported on 07/25/2023 IQuumTouch Ultra In Vitro Strip (Glucose Blood)Indications :Type [...] disease) stage 3, GFR 30-59 ml/min ([facility]) TAKE 1 CAPSULE BY MOUTH ONCE DAILY [...] A1c goal of less than 7.0% ([facility]) Inject 1 mg under the skin once [...] chronic, stage III (GFR 30-59 ml/min) ([facility]) TAKE 1 TABLET BY MOUTH IN THE MORNING NEEDED FOR GOUT 30 Tablet 4 Active Loratadine 10 MG Oral Tablet (Claritin)Indicat ions:Acute non-recurrent frontal sinusitis,Vertigo Take 1 Tablet by mouth in the morning. 20 Tablet 4 Active Fluticasone Propionate 50 MCG/ACT Nasal Suspension (Flonase)Indicati ons:Acute non-recurrent frontal sinusitis,Vertigo Administer 2 Sprays into each nostril in the morning. 9.9 mL 4 Active Meclizine HCl 25 MG Oral Tablet (Antivert)Indicat ions:Acute non-recurrent frontal sinusitis,Vertigo Take 1 Tablet by mouth 3 times a day as needed for Dizziness. 30 Tablet 4 Active Furosemide 20 MG Oral Tablet (Lasix)Indication s:HTN, goal below 140/90 Take 3 Tablets by mouth in the morning. 4 Active Furosemide 20 MG Oral Tablet (Lasix)Indication s:HTN, goal below 140/90 Take by mouth 4 Tablets in the morning. 360 Tablet 3 2 11/25/19 24 Discontinued documented as of this encounter [...] Diagnosed Date Resolved Date Endometrial cancer 07/19/2022 4 Cancer Staging:Pathologic stage from 11/27/2016:FIGO Stage IA(pT1a, pN0, cM0) - Signed by Ronald Oliver MD on 07/20/2022 Overview: History 12/19/20 TALENT ACQUISITION ASSISTANT/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 [employer] Other*[id number] 06/19/2010 05/29/2016 Overview: Study Titile: [employer] Markers for Patients with Cardiovascular Disease Project # [id number] PI: Tara Purcell MD Please call [phone] with study related questions Hand Dermatitis 09/24/2007 [...] Sign Reading Time Taken Comments Blood Pressure 135/70 11/25/2023 1:49 PM EDT Pulse 57 11/25/2023 1:49 PM EDT Temperature 36.7 C (98 F) 11/25/2023 1:49 PM EDT Respiratory Rate 22 11/25/2023 1:49 PM EDT Oxygen Saturation 95% 11/25/2023 1:49 PM EDT Inhaled Oxygen Concentration - - Weight 111.9 kg (246 lb 12.8 oz) 11/25/2023 1:49 PM EDT Height - - Body Mass Index 43.73 11/10/2023 2:45 PM EDT documented in this encounter Progress Notes * Esteban Okeefe MD - 11/25/2023 1:50 PM EDT Chief Complaint Patient presents with Return Visit Chronic Kidney Disease (CKD) Hypertension HPI: 78/F with ckd stage 3 with microalbuminuria from hypertensive nephrosclerosis and diabetes andnsaids. Pt with hypertension for many years. Checks bp at home occasionally. Pt with diabetes for about 5 yrs with no retinopathy and well controlled. Has neuropathy in feet. Pt with history of bilateral renal artery stents followed by vascular surgery. Hx of fibromuscular dysplasia. Follows every years. Pt with hx of uterine cancer since last visit. Did surgery-total hysterectomy-no radiation and no chemo needed. Since last visit ------had some sinusitis few weeks back but has recovered already. Diabetes and blood pressure both very well controlled on current regimen. She has renal duplex and vascular appointment within few weeks and this is her annual follow-up . Blood pressure is however perfectly controlled now and kidney function stable . PHM: Patient Active Problem List Diagnosis DYSLIPIDEMIA, GOAL [...] and stage 3a chronic kidney disease (HCC) Current Outpatient Medications Medication Sig Dispense Refill VITAMIN D 2000 UNITS PO CAPS 1 CAPSULE DAILY 30 Cap 5 ASPIRIN EC 81 MG PO TBEC Take 1 Tablet by mouth daily. Blood Glucose Monitoring Suppl (Quorum ULTRA SYSTEM) W/DEVICE KIT Use up to four times a day as directed/E11.9 1 Kit 0 Quorum DELMake Music TV LANCETS 33G MISC Test up to twice [...] Taking 40mg daily only..) 360 Tablet 3 OneTouch Ultra In Vitro Strip (Glucose Blood) USE 1 STRIP TO CHECK GLUCOSE ONCE TO TWICE DAILY DIRECTED 200 Strip 3 ProAir HFA 108 (90 Base) MCG/ACT Inhalation Aerosol Solution Inhale 2 Puffs by mouth every 4 hours as needed for Wheezing. 18 g 3 OneTouch Verio w/Device Kit Use as [...] No current facility-administered medications for this visit. Past Medical History: Diagnosis Date Displacement of lumbar intervertebral disc without myelopathy 01/11/2010 DM type 2, goal A1c below 7 Dyslipidemia, goal LDL below 100 04/06/2009 Per Lipid Taxonomy. Endometrial cancer (HCC) History 12/19/20 TALENT ACQUISITION ASSISTANT/Onc note "REBECA" HTN, goal below 140/90 Intraductal [...] ARTERIES performed by NANY MCKEON [place] [facility] BIOPSY OF BREAST, OPEN 03/23 left fibrodenoma - Dr. Montanez BIOPSY OF BREAST, OPEN 2005 left fibroadenoma BIOPSY OF BREAST, OPEN 02/20/08 Left breast biopsy (benign) at [facility] - Dr. Montanez BREAST-PLACE NEEDLE LOCALIZ 05/08/2012 05/08/2012 LEFT breast needle localication intraductal papilloma with usual ductal hyperplastia [facility] - Dr. Juvenal Montanez COLONOSCOPY, DIAGNOSTIC (RECTUM) 11/06/2016 diverticulosis, repeat 10 yrs/[facility] CORONARY ANGIOGRAPHY CATH PLACEMENT 06/19/2010 CORONARY ANGIOGRAPHY CATH PLACEMENT performed by ALLYSSA GUAJARDO at [facility] CRYOCAUTERY OF CERVIX DILATION AND CURETTAGE (D&C) 11/16/2010 EXC BREAST LESION RADMARK Left 02/02/2019 02/02/2019 left partial mastectomy [facility] Dr. Juvenal Montanez L-/S-SPINE PARAVERTEBRL FACET INJ,2 LEVELS 10/29/2013 L-/S-SPINE PARAVERTEBRL FACET INJ,2 LEVELS performed by Yonathan Brooke DO at OR [facility] LAPAROSCOPY TOTAL HYSTX, UTERUS > 250GM TUBE/OVARY N/A 11/27/2016 Robotic-assisted total laparoscopic hysterectomy and bilateral salpingo- oophorectomy with diagnostic cystoscopy performed by Chris Puckett MD [place] [facility] LIGATE/CUT OVIDUCT(S) Tubal Ligation REMOVE CATARACT, INSERT LENS PROSTH Left 10/16/2018 left EXTRACAPSULAR CATARACT REMOVAL WITH INTRAOCULAR LENS performed by Jhonny Stanton MD at OR [facility] REMOVE CATARACT, INSERT LENS PROSTH Right 10/28/2018 right EXTRACAPSULAR CATARACT REMOVAL WITH INTRAOCULAR LENS performed by Jhonny Stanton MD at OR [facility] REMOVE GALLBLADDER 1961 Cholecystectomy, Open REMOVE LUMBAR SPINE LAMINA, 3+ SEGS 1999 HNP Excision RENAL / VISCERAL ARTERY [place]ON ANGIOPLASTY 01/29/2011 Right renal angioplasty and stent 01/29/[address] Mckeon [place] [facility] RENAL ANGIO BILAT-TECH ONLY 01/2003 Lt renal stent/rt renal angioplasty, Dr steward SACROILIAC JOINT INJECT W/GUIDANCE 05/15/2021 INJECTION SACROILIAC JOINT performed by Eb Collado DO at OR [facility] SACROILIAC JOINT INJECT W/GUIDANCE 12/13/2021 INJECTION SACROILIAC JOINT performed by Eb Collado DO at OR [facility] SACROILIAC JOINT INJECT W/GUIDANCE 09/18/2023 INJECTION SACROILIAC JOINT performed by James Crain DO at OR [facility] STEREOTAXIC SURGERY Right 12/09/2017 12/09/2017 right breast dx 1. usual ductal hyperplasia 2. adenosis 3. fibrocystic change [facility] US GUIDED BREAST BIOPSY LEFT Left 12/09/2017 12/09/2017 ultrasound guided breast biopsy [facility] - dx A. papillary porliferation with usual ductal hyerplasia . Review of patient's allergies indicates: Allergen Reactions Bactrim [Sulfamethoxazole-Trimethoprim] Hallucinations, anxiety Metformin Diarrhea and Edema Other Penicillins hives Allopurinol Rash Family History Problem Relation Name Age of Onset Cancer Mother colon, uterine Stroke Mother TIA Hypertension Father Heart Disorder Father of renal failure Other (psoriasis) Father Diabetes Uncle (Unspecified) Hypertension Sister Thyroid Disorder Sister Neurological Disorder Daughter MS Heart Disorder Father Luciano Ungard Hypertension Father Luciano Ungard Allergies Daughter Jaqueline Neurological Disorder Daughter Jaqueline MS Hypertension Father Luciano Hypertension Sister Cristina Arthritis Sister Cristina Thyroid Disorder Sister Cristina Obesity Sister Cristina Hypertension Brother Ad Diabetes Brother Ad Cancer Mother Jennifer Stroke Mother eJnnifer Cancer Grandmother (Maternal) Makenna muro breast Obesity Daughter Clari Other (AAA) Daughter Clari Denies FH of AAA Cancer Grandfather (Paternal) lung Heart Disorder Grandmother (Paternal) Elizabeth Ungard Hypertension Grandmother (Paternal) Elizabeth Ungard Allergies Daughter Jaqueline Adriel Neurological Disorder Daughter Jaqueline Adriel MS Allergies Daughter Clari Armando Obesity Daughter Clari Armando Hypertension Sister Cristina Boob Arthritis Sister Cristina Boob Thyroid Disorder Sister Cristina Boob Obesity Sister Cristina Boob Hypertension Brother Ad Ungard Diabetes Brother Ad Ungard Cancer Mother Jennifer Ungard Stroke Mother Jennifer Ungard Cancer Grandmother (Maternal) Makenna Leal Family Status Relation Status Age Mother Alive Father 52 uremic poisoning Sister Alive Brother Alive Daughter Alive MS Daughter Alive Social History Socioeconomic History Marital status: Spouse name: Juvenal Number of children: 2 Years of education: 12 Highest education level: Not on file Occupational History 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, 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, 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 Social Needs Financial resource strain: Not on file Food insecurity: Worry: Not on file Inability: Not on file Transportation needs: Medical: Not on file Non-medical: Not on file Tobacco Use Smoking status: Never Smoker Smokeless tobacco: Never Used Substance and Sexual Activity Alcohol use: No Drug use: No Sexual activity: Yes Partners: Male control/protection: Surgical Comment: BTL Lifestyle Physical activity: Days per week: Not on file Minutes per session: Not on file Stress: Not on file Relationships Social connections: Talks on phone: Not on file Gets together: Not on file Attends episcopal service: Not on file Active member of club or organization: Not on file Attends meetings of clubs or organizations: Not on file Relationship status: Not on file Intimate partner violence: Fear of current or ex partner: Not on file Emotionally abused: Not on file Physically abused: Not on file Forced sexual activity: Not on file Other Topics Concern Service Not Asked Blood Transfusions Not Asked Caffeine Concern Not Asked Occupational Exposure Not Asked Hobby Hazards Not Asked Sleep Concern No Stress Concern Not Asked Weight Concern Not Asked Special Diet Not Asked Back Care Not Asked Exercise Not Asked Bike Helmet Not Asked Seat Belt Yes Self-Exams Not Asked Social History Narrative Not on file Review of Systems: 12 systems reviewed and negative Objective: There were no vitals taken for this visit. Home BP 137/74 BP Readings from Last 4 Encounters: 11/10/23 130/80 09/18/23 184/74 08/13/23 128/70 07/25/23 154/84 Wt Readings from Last 3 Encounters: 11/10/23 109.7 kg (241 lb 12.8 oz) 09/18/23 108.9 kg (240 lb) 08/13/23 109.8 kg (242 lb) Physical Exam: General: alert, healthy, no distress, well nourished and well developed Head: Normocephalic, No masses, lesions, tenderness or abnormalities. Extremities: +1 Edema, Neuro Exam: alert & oriented x 3 with fluent speech, NEPH-FLOW Latest Ref Rng & Units 11/20/2016 12/21/2016 03/06/2017 Bun 6 - 20 mg/dL 23 (H) 28 (H) Cr 0.5 - 1.0 mg/dL 1.3 (H) 1.3 (H) 1.2 (H) eGFR >60 mL/min eGFR >60 42.4 (L) 39.8 (L) 47.3 (L) K 3.5 - 5.1 mmol/L 4.7 Hb 12.0 - 15.3 g/dL 13.8 Microalb/cr ratio <30 mg/g creat NEPH-FLOW Latest Ref Rng & Units 07/18/2017 09/11/2017 Bun 6 - 20 mg/dL 25 (H) 20 Cr 0.5 - 1.0 mg/dL 1.2 (H) 1.1 (H) eGFR >60 mL/min eGFR >60 43.7 (L) 50.5 (L) K 3.5 - 5.1 mmol/L 4.5 Hb 12.0 - 15.3 g/dL Microalb/cr ratio <30 mg/g creat 371 (H) NEPH-FLOW Latest Ref Rng & Units 02/07/2018 02/10/2018 05/30/2018 Bun 6 - 20 mg/dL 31 (H) 22 (H) Cr 0.5 - 1.0 mg/dL 1.1 (H) 1.3 (H) eGFR >60 mL/min eGFR >60 48.0 (L) 41.7 (L) K 3.5 - 5.1 mmol/L 4.2 4.6 Hb 12.0 - 15.3 g/dL 15.1 Microalb/cr ratio <30 mg/g creat NEPH-FLOW Latest Ref Rng & Units 01/13/2019 01/14/2019 02/26/2019 Bun 6 - 20 mg/dL 34 (H) 24 (H) Cr 0.5 - 1.0 mg/dL 1.2 (H) 1.2 (H) eGFR >60 mL/min eGFR >60 46.7 (L) 46.7 (L) K 3.5 - 5.1 mmol/L 4.7 4.0 Hb 12.0 - 15.3 g/dL 14.5 13.8 Microalb/cr ratio <30 mg/g creat NEPH-FLOW Latest Ref Rng & Units 11/04/2019 02/24/2020 03/10/2020 Bun 6 - 20 mg/dL 27 (H) 30 (H) Cr 0.5 - 1.0 mg/dL 1.3 (H) 1.3 (H) eGFR >60 mL/min eGFR >60 39.6 (L) 40.0 (L) K 3.5 - 5.1 mmol/L 4.3 4.2 Hb 12.0 - 15.3 g/dL 14.4 14.3 13.9 Microalb/cr ratio <30 mg/g creat NEPH-FLOW Latest Ref Rng & Units 02/24/2020 03/10/2020 09/06/2020 Bun 6 - 20 mg/dL 30 (H) 21 (H) Cr 0.5 - 1.0 mg/dL 1.3 (H) 1.4 (H) eGFR >=60.0 mL/min 38.7 (L) eGFR >60 40.0 (L) K 3.5 - 5.1 mmol/L 4.2 4.3 Hb 12.0 - 15.3 g/dL 14.3 13.9 13.9 Microalb/cr ratio <30 mg/g creat NEPH-FLOW Latest Ref Rng & Units 09/06/2020 02/15/2021 03/21/2021 Bun 6 - 20 mg/dL 21 (H) 20 22 (H) Cr 0.5 - 1.0 mg/dL 1.4 (H) 1.2 (H) 1.1 (H) eGFR >=60 mL/min 38.7 (L) 46 (L) 48 (L) eGFR >60 K 3.5 - 5.1 mmol/L 4.3 4.1 4.9 Hb 12.0 - 15.3 g/dL 13.9 14.1 14.1 Pro/Cr ratio <150 mg/g 811 (H) Microalb/cr ratio <30 mg/g creat ASSESSMENT/PLAN: Stage 3b chronic kidney disease (HCC) (Primary) ckd stage 3 with creatinine of 1.3 with 380mg of proteinuria from htn and diabetes and nsaids. No tobacco. No myeloma. Does have bilateral renal artery stents with fibromuscular dysplasia followed byvascular surgery. Has been taking nsaids prn--3 per month. Advised not to take or take less. Labs done June 2023 was reviewed and Shows a creatinine of 1.1 giving GFR of 50 and this is within her previous range. She does not haveanemia of kidney disease as her hemoglobin is 13.5 last checked October 2022 Will also do labs as below as she is due for her CKD labs - CBC WITH WBC DIFFERENTIAL; Future; Expected date: 11/25/2023 - PTH; Future; Expected date: 11/25/2023 - RENAL FUNCTION PANEL; Future; Expected date: 11/25/2023 - PROTEIN/ CREATININE RATIO, URINE; Future; Expected date: 11/25/2023 HTN, goal below 140/90 SANTOS (renal artery stenosis) (HCC) Bp is at goal Also advised to eat less salt and not to use meloxicam as much. On ARB, CCB, BB and Lasix. Renal duplex done - stable. She is getting another imaging done and few weeks. In any case given blood pressure at goal and stable kidney function there is no indication for any vascular intervention. Follow Up: Return in about 1 year (around 11/24/2024) for Clinic Visit. | For: Clinic Visit Esteban Okeefe MD documented in this encounter Nursing Notes * Elizabeth Barrett LPN - 11/25/2023 1:44 PM EDT Patient identified by verbal name and date of .Saw in Urgent Care for dizziness 11/10/23 Pt is SOB with exertion with bilateral ankle edema Last labs 07/17/23 Urine 11/10/23 documented in this encounter Plan of Treatment Upcoming Encounters Date Type Department Care Team (Latest Contact Info) Description 11/27/2023 2:45 PM EDT Office Visit Orthopaedics, [facility] [address] [address] Rene Bruno PA-C [address] [place], [place] [address] [phone] 12/03/2023 9:00 AM EDT [facility] [address] [place] [address] 12/11/2023 11:50 AM EDT Office Visit Vascular Surgery, [facility] [address] [place] [address] Sergei Frost MD [address] [place] [address] 01/07/2024 2:30 PM EDT Office Visit Cardiology, [facility] [address] [place] [address] Allyssa Cano, DO [address] [address] 01/20/2024 1:45 PM EDT Hospital Encounter OR [facility], Operating Room [facility] [address] [phone] James Crain, DO [address] [place] [phone] 01/20/2024 1:45 PM EDT - 01/20/2024 2:10 PM EDT Surgery OR [facility], Operating Room [facility] [address] [place] [phone] James Crain, DO [address] [place] [phone] INJECTION SACROILIAC JOINT 02/18/2024 3:00 PM EDT Office Visit General Internal Medicine [facility] Kelli [place]ell [address] [facility] [place] [address] Nessa Foreman MD 200 [facility] [place] [address] Pending Results Name Type Priority Associated Diagnoses Date /Time PTH Lab Routine Stage 3a chronic kidney disease (HCC) 11/25/2023 2:21 PM EDT RENAL FUNCTION PANEL Lab Routine Stage 3a chronic kidney disease (HCC) 11/25/2023 2:21 PM EDT PROTEIN/ CREATININE RATIO, URINE Lab Routine Stage 3a chronic kidney disease (HCC) 11/25/2023 2:21 PM EDT Scheduled Orders Name Type Priority Associated Diagnoses Orde r Schedule PTH Lab Routine Stage 3a chronic kidney disease (HCC) Expected: 11/25/2023 (Approximate), Expires: 05/23/2024 RENAL FUNCTION PANEL Lab Routine Stage 3a chronic kidney disease (HCC) Expected: 11/25/2023 (Approximate), Expires: 05/23/2024 PROTEIN/ CREATININE RATIO, URINE Lab Routine Stage 3a chronic kidney disease (HCC) Expected: 11/25/2023 (Approximate), Expires: 05/23/2024 Scheduled Procedures Name Priority Associated Diagnoses Date/Ti [...] Additional history exists CKD HGB USE SMARTSET 52977 11/15/202311/24, 11/25/2023, 11/14/2022, Additional history exists Influenza Vaccine (FLU shot) (#1) 2023 01/29/2023, 03/08/2022, 02/15/2021, Additional history exists GFR 01/17/2024 07/17/2023, 10/21, 03/19/2022, Additional history exists HbA1c 01/17/2024 07/17/2023, 10/21, 07/11/2022, Additional history exists Diabetic Foot Exam 01/30/2024 01/29/2023, 1 05/21/2020, 02/24/2020, Additional history exists CKD PHOS USE SMARTSET 83498 07/16/202406/21, 07/11/2022, 06/26/2021, Additional history exists DTaP,Tdap,and [...] this encounter Medical Devices Implanted Type Area Wine Steward Device Identifier Shelf Expiration Date Model / Serial / Lot Stent [id number] - [id number] Implanted:Qty: 1 on 01/29/[place] [facility] Right: Renal Artery JNJ : [employer] 07/21/2012 [id number] / / [id number] Lens Intraoc 18.5 - [id number] - [id number] Implanted:Qty: 1 on 10/16/2018 by Jhonny Stanton MD at OR [facility] Left: Eye BAUSCH [employer] LOMB 02/19/2023 [id number] / [id number] / [id number] Lens Intraoc 18.0 - [id number] - [id number] Implanted:Qty: 1 on 10/28/2018 by Jhonny Stanton MD at OR [facility] Right: Eye BAUSCH & LOMB 11/19/2022 [id number] / [id number] / documented as of this encounter Visit Diagnoses Diagnosis Stage 3a chronic kidney disease (HCC)- Primary HTN, goal below 140/90 Unspecified essential hypertension SANTOS (renal artery stenosis) (HCC) Atherosclerosis of renal artery Inflammation of sacroiliac joint (HCC) Sacroiliitis, not [...] Advance Directives occurred with: Patient Care Teams Instructional Material Director Relationship Specialty Start Date End Date Nessa Foreman MD [address] [place] [address] PCP - General Internal Medicine 05/11/10 documented as of this encounter
--- OUTSIDE RECORDS SUMMARY | 2024-01-06 01:52 | External Medical Summary ---
Author Name Unknown Address Unknown Organization K01:[facility] - [address] [place] [address] Laboratory Report Ordering Provider Test Date Status TIN MCPHERSON 11/25/2023 14:21:51 Final Normal: <150 mg/ g creatinine
High: 150-500 mg/g creatinine
Very High: >500 mg/g creatinine
Nephrotic: >3000 mg/g creatinine Observation Date Value Abnormality Reference (Units ) Status Protein/Creatinine [Ratio] in Urine 11/25/2023 14:21:51 922 Above high normal <150 (mg/g ) Final Protein, Urine 11/25/2023 14:21:51 59 (mg/dL) Final Creatinine, Urine 11/25/2023 14:21:51 64 (mg/dL) Final Performing Location [facility] - [address] [place] [place] [address]
--- OUTSIDE RECORDS SUMMARY | 2024-01-06 01:53 | External Medical Summary | Summary of Care ---
Author Name Unknown Organization [facility] Address [address] [facility] [place] [address] Phone [phone] Care Team Providers Care Venetian Blind Washer Name Role Phone Nessa Foreman MD Primary Care Provider + Encounter Details Date Type Department Care Team (Late st Contact Info) Description 10/11/2023 Patient Reported Data Patient Survey Ortho [facility]BERD Allergies Active Allergy Reactions Criticality Noted Date Comments Allopurinol Low 01/20/2007 Rash Sulfamethoxazole-Trimet hoprim 10/06/2015 Hallucinations, anxiety Metformin Diarrhea,Edema Other 09/06/2023 Penicillins 12/24/2000 hives documented as of this encounter (statuses as of 10/11/2023) Medications Medication Sig Dispensed Refills Start Date [...] only., Indications: water pill, Reported on 12/03/2022 Mimetasuch Ultra In Vitro Strip (Glucose Blood)Indications:T ype 2 diabetes mellitus with hemoglobin A1c goal of less than 7.0% ([facility]) USE 1 STRIP TO CHECK GLUCOSE ONCE TO TWICE DAILY DIRECTED 200 Strip 3 01/24/2022 Active ProAir HFA 108 (90 Base) MCG/ACT Inhalation Aerosol SolutionIndications :Wheezing Inhale 2 Puffs by mouth every 4 hours as needed for Wheezing. 18 g 3 04/07/2022 Active Jayride.comTouch Verio w/Device Kit Use as directed . 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 As needed for gout. 30 Tablet 1 12/13/2022 Active Calcitriol 0.25 MCG Oral Capsule (Rocaltrol)Indicati ons:CKD (chronic kidney disease) stage 3, GFR 30-59 ml/min ([facility]) TAKE 1 CAPSULE BY MOUTH ONCE DAILY [...] hemoglobin A1c goal of less than 7.0% ([facility]) Inject 1 mg under the skin once a week. On Sundays 9 mL 3 08/15/2023 Active traMADol HCl 50 MG Oral Tablet (Ultram)Indications :Spinal stenosis of lumbar region without neurogenic claudication Take 1 Tablet by mouth every 6 hours as needed for Pain, Severe. 14 Tablet 09/04/2023 Active LORazepam 0.5 MG Oral Tablet (Ativan) TAKE 1 TABLET BY MOUTH THREE TIMES DAILY NEEDED FOR ANXIETY 90 Tablet 09/05/2023 Active documented as of this encounter (statuses as of 10/11/2023) Active Problems Problem Noted Date Diagnosed Date [...] open-angle glaucoma, right eye, moderate stage 02/24/2020 TAILIO (generalized anxiety disorder) 02/24/2020 Advanced directives, counseling/discussion [...] as of this encounter (statuses as of 10/11/2023) Resolved Problems Problem Noted Date Diagnosed Date Resolved Date Endometrial cancer 07/19/2022 Cancer Staging:Pathologic stage from 11/27/2016:FIGO Stage IA(pT1a, pN0, cM0) - Signed by Ronald Oliver MD on 07/20/2022 Overview: History 8/30/21 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 [employer] Other*[id number] 06/19/2010 05/29/2016 Overview: Study Titile: Genomics Markers for Patients with Cardiovascular Disease Project # [id number] PI: Tara Purcell MD Please call [phone] with study related questions Hand Dermatitis 09/24/2007 01/10/2017 Gout 09/09/2006 10/17/2009 Dermatitis 02/07/2005 09/24/2007 Dyslipidemia, goal to be determined 05/08/2004 04/06/2009 Overview: Per Lipid Taxonomy. Vascular complications of renal artery 06/25/2002 01/10/2017 documented as of this encounter (statuses as of 10/11/2023) Immunizations Name Administration Dates Next Due COVID-19 [...] Upcoming Encounters Date Type Department Care Team (Late st Contact Info) Description 10/15/2023 11:00 AM EDT Scheduled Telephone Interventional Pain Center, [facility] [address] [place] [address] Harjit, Nurse Phone Call Interventional Pain [facility] [address] [place] [phone] 10/17/2023 2:15 PM EDT Office Visit Orthopaedics [facility] [address] [facility] [place] [address] Omer Hammond, DO [address] [place] [address] 12/03/2023 9:00 AM EDT Imaging Vascular Lab, [facility] 2nd Floor, [place] [address] [facility] [place] [address] 12/11/2023 11:50 AM EDT Office Visit Vascular Surgery, [facility] [address] [facility] [place] [address] Sergei Frost MD [address] [place] [address] 01/07/2024 2:30 PM EDT Office Visit Cardiology, [facility] [address] [facility] [place] [address] Jerry Cano, DO [address] [facility] [place] [address] 02/18/2024 3:00 PM EDT Office Visit General Internal Medicine [facility] [address]elli [place] [address] [place] [address] Nessa Foreman MD [address] [place] [address] Scheduled Procedures Name Priority Associated Diagnoses Date/Ti me ROBOTIC ARTHROPLASTY KNEE TOTAL Knee osteoarthritis COLONOSCOPY FLEXIBLE PROXIMA L DIAGNOSTIC Recall Encounter for screening colonoscopy Health Maintenance Due Date Last Done Comments Zoster Vaccines (2 of 3) 01/28/2012 12/03/2011 Depression Screening 09/06/2021 09/06/2020 COVID-19 Vaccine ( season) 2022 03/08/2022, 04/03/2021, 06/23/2020, Additional history exists Diabetic Eye Exam 09/21/2023 09/20/2022, , 06/20/2021, Additional history exists Albumin/Creatinine Ratio 2023 023, 11/23/2021, 09/11/2017, Additional history exists CKD HGB USE SMARTSET 15830 11/15/202311/14, 11/14/2022, 07/11/2022, Additional history exists GFR 01/17/2024 07/17/2023, 10/21, 03/19/2022, Additional history exists HbA1c 01/17/2024 07/17/2023, 10/21, 07/11/2022, Additional history exists Diabetic Foot Exam 01/30/2024 01/29/2023, 1 05/21/2020, 02/24/2020, Additional history exists CKD PHOS USE SMARTSET 64350 07/16/202406/21, 07/11/2022, 06/26/2021, Additional history exists DTaP,Tdap,and Td Vaccines (3 - Td or Tdap) 02/11/2028 02/10/2018, 01/01/2008 Pneumococcal Vaccine: 65+ Years Completed 08/05/2014, 11/01/2011, 05/12/2010 Influenza Vaccine (FLU shot) Completed 01/2023, 03/08/2022, 02/15/2021, Additional history exists GARDASIL-HPV IMMUNIZATION SERIES Aged Out No longer eligible based on patient's age to complete this topic Hepatitis B Aged Out No longer eligi ble based on patient's age to complete this topic MENINGOCOCCAL (MENACTRA/MENVEO) Aged Out No longer eligible based on patient's age to complete this topic documented as of this encounter Medical Devices Implanted Type Area Game Design Instructor Device Identifier Shelf Expiration Date Model / Serial / Lot Stent [id number] Frank [id number] - [id number] Implanted:Qty: 1 on 01/29/2011 at OR [facility] [place] Right: Renal Artery JNJ : CORDIS [employer]OVASC[employer] 07/21/2012 [id number] / / [id number] Lens Intraoc 18.5 - [id number] - [id number] Implanted:Qty: 1 on 10/16/2018 by Jhonny Stanton MD at OR [facility] Left: Eye BAUSCH & LOMB 02/19/2023 [id number] / [id number] / [id number] Lens Intraoc 18.0 - [id number] - [id number] Implanted:Qty: 1 on 10/28/2018 by Jhonny Stanton MD at OR [facility] Right: Eye BAUSCH & LOMB 11/19/2022 [id number] / [id number] / documented as of this encounter Advance [...] Advance Directives occurred with: Patient Care Teams Venetian Blind Washer Relationship Specialty Start Date End Date Nessa Foreman MD [address] [place] [phone] PCP - General Internal Medicine 05/11/10 documented as of this encounter
--- OUTSIDE RECORDS SUMMARY | 2024-01-06 01:53 | External Medical Summary | Summary of Care ---
Author Name Unknown Organization [facility] Address [address] [facility] [address] Phone [phone] Care Team Providers Care Optometrist Assistant Name Role Phone Nessa Foreman MD Primary Care Provider + Reason for Visit * Reason Comments eRx-Medication Refill Encounter Details Date Type Department Care Team (Late st Contact Info) Description 11/01/2023 Refill General Internal Medicine [facility] [address] [place] [address] Nessa Foreman MD [address] [place] [address] Spinal stenosis of lumbar region without neurogenic claudication Allergies Active Allergy Reactions Criticality Noted Date Comments Allopurinol Low 01/20/2007 Rash Sulfamethoxazole-Trimet hoprim 10/06/2015 Hallucinations, anxiety Metformin Diarrhea,Edema Other 09/06/2023 Penicillins 12/24/2000 hives documented as of this encounter (statuses as of 11/04/2023) Medications Medication Sig Dispensed Refills Start Date End Date Status VITAMIN D 2000 UNITS PO CAPS 1 CAPSULE DAILY 30 Cap 5 2 Active ASPIRIN EC 81 MG PO TBECIndications:b lood flow Take 1 Tablet by mouth daily. Active Blood Glucose Monitoring Suppl (Sentrix ULTRA SYSTEM) W/DEVICE KITIndications:DM type 2, goal [...] only., Indications: water pill, Reported on 12/03/2022 Make My plate Ultra In Vitro Strip (Glucose Blood)Indications :Type 2 diabetes mellitus with hemoglobin A1c goal of less than 7.0% ([facility]) USE 1 STRIP TO CHECK GLUCOSE ONCE TO TWICE DAILY DIRECTED 200 Strip 3 2 Active ProAir HFA 108 (90 Base) MCG/ACT Inhalation Aerosol SolutionIndicatio ns:Wheezing Inhale 2 Puffs by mouth every 4 hours as needed for Wheezing. 18 g 3 2 Active Axios Mobile Assets CorporationTouch Verio w/Device Kit Use as directed . 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 As needed for gout. 30 Tablet 1 3 Active Calcitriol 0.25 MCG Oral Capsule (Rocaltrol)Indica tions:CKD (chronic kidney disease) stage 3, GFR 30-59 ml/min ([facility]) TAKE 1 CAPSULE BY MOUTH [...] hemoglobin A1c goal of less than 7.0% ([facility]) Inject 1 mg under the [...] needed for Pain, Severe. 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 [employer] Other*[id number] 06/19/2010 05/29/2016 Overview: Study Titile: [employer] Markers for Patients with Cardiovascular Disease Project # [id number] PI: Tara Purcell MD Please call [phone] with study related questions Hand Dermatitis 09/24/2007 01/10/2017 Gout 09/09/2006 10/17/2009 Dermatitis 02/07/2005 09/24/2007 Dyslipidemia, goal to be determined 05/08/2004 04/06/2009 Overview: Per Lipid Taxonomy. Vascular complications of renal artery 06/25/2002 01/10/2017 documented as of this encounter (statuses as of 11/04/2023) Immunizations Name Administration Dates Next Due COVID-19 [...] Telephone Encounter - Nessa Foreman MD - 11/04/2023 3:25 PM EDTSigned Prescriptions: Disp Refills traMADol HCl 50 MG Oral Tablet (Ultram) 14 Tab*0 Sig: Take 1 Tablet by mouth every 6 hours as needed for Pain, Severe. Authorizing Provider: NESSA FOREMAN * Telephone Encounter - Carmen Hastings [facility] - 11/04/2023 10:08 AM EDTPending Prescriptions: Disp Refills traMADol HCl 50 MG Oral Tablet 14 Tab*0 Sig: TAKE 1 TABLET BY MOUTH EVERY 6 HOURS NEEDED FOR SEVERE PAIN * Telephone Encounter - Carmen Hastings [facility] - 11/04/2023 10:07 AM EDT I have reviewed the patients controlled substance dispensing history in the Prescription Drug Monitoring Program in compliance with the [facility] regulations before prescribing a controlled substance. PDMP checked on 11/04/2023. Pending Prescriptions: Disp Refills traMADol HCl 50 MG Oral Tablet (Ultram) [*14 Tab*0 Sig: TAKE 1 TABLET BY MOUTH EVERY 6 HOURS NEEDED FOR SEVERE PAIN Last Visit: 08/13/2023 (in office), Visit date not found (telemedicine) Next Visit: 02/18/2024 Date medication was last filled: 09/03 Date medication is due for refill: 09/06 [facility]: [facility] Is this request for a controlled substance? Yes and Urine Drug Screen Not completed Toxicology results: No results found. However, due to the size of the patient record, not all encounters were searched.Please check Results Review for a complete set of results. Please approve if appropriate. Thank you, Carmen Hastings, PharmD Clinical Pharmacist [facility] ([facility]) [phone] 11/04/2023, 10:07 AM documented in this encounter Plan of Treatment Upcoming Encounters Date Type Department Care Team (Latest Contact Info) Description 12/03/2023 9:00 AM EDT Imaging Vascular Lab, [facility] 2nd Floor, [address] [place] [address] 12/11/2023 11:50 AM EDT Office [address], [address] [address] Sergei Frost MD [address] [place] [address] 01/07/2024 2:30 PM EDT Office Visit Cardiology, [address] [place] [address] Jerry Cano, [address] [facility] [place] [address] 01/20/2024 1:45 PM EDT Hospital Encounter OR [facility], Operating Room [facility] [address] [place] [address] James Crain, DO [address] [place] [address] 01/20/2024 1:45 PM EDT - 01/20/2024 2:10 PM EDT Surgery OR [facility], Operating Room [facility] [address] [place] [id number] James Crain, DO [address] [place] [phone] INJECTION SACROILIAC JOINT 02/18/2024 3:00 PM EDT Office Visit General Internal Medicine [facility] [address] [facility] [place] [address] Nessa Foreman MD [address] [facility] [place] [address] Scheduled Procedures Name Priority Associated Diagnoses Date/Ti [...] Additional history exists CKD HGB USE SMARTSET 75945 11/15/202311/14, 11/14/2022, 07/11/2022, Additional history exists Influenza Vaccine (FLU shot) (#1) 2023 01/29/2023, 03/08/2022, 02/15/2021, Additional history exists GFR 01/17/2024 07/17/2023, 10/21, 03/19/2022, Additional history exists HbA1c 01/17/2024 07/17/2023, 10/21, 07/11/2022, Additional history exists Diabetic Foot Exam 01/30/2024 01/29/2023, 1 05/21/2020, 02/24/2020, Additional history exists CKD PHOS USE SMARTSET 54447 07/16/202406/21, 07/11/2022, 06/26/2021, Additional history exists DTaP,Tdap,and [...] this encounter Medical Devices Implanted Type Area Suit Maker Device Identifier Shelf Expiration Date Model / Serial / Lot Stent [id number] Frank [id number] - [id number] Implanted:Qty: 1 on 01/29/2011 at OR [facility] [place] Right: Renal Artery JNJ : CORDIS ENDOVASCULAR 07/21/2012 [id number] / / [id number] Lens Intraoc 18.5 - [id number] - [id number] Implanted:Qty: 1 on 10/16/2018 by Jhonny Stanton MD at OR [facility] Left: Eye BAUSCH & LOMB 02/19/2023 [id number] / [id number] / [id number] Lens Intraoc 18.0 - [id number] - [id number] Implanted:Qty: 1 on 10/28/2018 by Jhonny Stanton MD at OR [facility] Right: Eye BAUSCH & LOMB 11/19/2022 [id number] / [id number] / documented as of this encounter Visit [...] Advance Directives occurred with: Patient Care Teams Optometrist Assistant Relationship Specialty Start Date End Date Nessa Foreman MD [address] [place] [address] PCP - General Internal Medicine 05/11/10 documented as of this encounter
--- OUTSIDE RECORDS SUMMARY | 2024-01-06 01:53 | External Medical Summary | Summary of Care ---
Author Name Unknown Organization [facility] Address [address] [facility] [place] [address] Phone [phone] Care Team Providers Care School Counsellor Name Role Phone Nessa Foreman MD Primary Care Provider + Reason for Visit * Reason Comments Diabetes Follow-Up Dosage Adjustment Via Phone (anticoag Cl inic) Encounter Details Date Type Department Care Team (Late st Contact Info) Description 09/20/2023 9:40 AM EDT Telemedicine Pharmacy, [facility] [address] [facility] [place] [address] Pharmacist1, [facility] [address] [facility] [place] [address] Type 2 diabetes mellitus with hemoglobin A1c goal of less than 7.0% ([facility])*; Type 2 diabetes mellitus with stage 3b chronic kidney disease, without long-term current use of insulin ([facility]) Allergies Active Allergy Reactions Criticality Noted Date Comments Allopurinol Low 01/20/2007 Rash Sulfamethoxazole-Trimet hoprim 10/06/2015 Hallucinations, anxiety Metformin Diarrhea,Edema Other 09/06/2023 Penicillins 12/24/2000 hives documented as of this encounter (statuses as of 09/20/2023) Medications Medication Sig Dispensed Refills Start Date End Date Status VITAMIN D 2000 UNITS PO CAPS 1 CAPSULE DAILY 30 Cap 5 11/29/2011 Active ASPIRIN EC 81 MG PO TBECIndications:blo od flow Take 1 Tablet by mouth daily. Active Blood Glucose Monitoring Suppl (GZ.com ULTRA SYSTEM) W/DEVICE KITIndications:DM type 2, goal A1c below 7 Use up to four times a day as directed/E11.9 1 Kit 0 02/04/2015 Active NeuropureTOUCH DELICA LANCETS 33G MISCIndications:Typ e 2 diabetes [...] only., Indications: water pill, Reported on 12/03/2022 Vandas Group Ultra In Vitro Strip (Glucose Blood)Indications:T ype [...] directed . 1 Kit 1 04/18/2022 Active AkademosTouch UltraSoft Lancets Use as directed 4 times [...] stage III (GFR 30-59 ml/min) ([facility]) Take 1 Tablet by mouth in the morning. As needed for gout. 30 Tablet 1 12/13/2022 Active Calcitriol 0.25 MCG Oral Capsule (Rocaltrol)Indicati ons:CKD (chronic kidney disease) stage 3, GFR 30-59 ml/min ([facility]) TAKE 1 CAPSULE BY MOUTH ONCE [...] A1c goal of less than 7.0% (HCC) Inject 1 mg under the skin once [...] as of this encounter (statuses as of 09/20/2023) Active Problems Problem Noted Date Diagnosed Date [...] Renal artery stenosis 09/02/2015 Renovascular hypertension wi goal blood pressure less than 140/90 09/02/2015 [...] as of this encounter (statuses as of 09/20/2023) Resolved Problems Problem Noted Date Diagnosed Date Resolved Date Endometrial cancer 07/19/2022 Cancer Staging:Pathologic stage from 11/27/2016:FIGO Stage IA(pT1a, pN0, cM0) - Signed by Ronald Oliver MD on 07/20/2022 Overview: History 12/19/20 STUDENT SUCCESS COUNSELOR/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 [employer] Other*[id number] 06/19/2010 05/29/2016 Overview: Study Titile: Genomics Markers for Patients with Cardiovascular Disease Project # [id number] PI: Tara Purcell MD Please call [phone] with study related questions Hand Dermatitis 09/24/2007 01/10/2017 Gout 09/09/2006 10/17/2009 Dermatitis 02/07/2005 09/24/2007 Dyslipidemia, goal to be determined 05/08/2004 04/06/2009 Overview: Per Lipid Taxonomy. Vascular complications of renal artery 06/25/2002 01/10/2017 documented as of this encounter (statuses as of 09/20/2023) Immunizations Name Administration Dates Next Due COVID-19 [...] in the Last Year Never true 02/26/2019 Sex and Gender Information Value Date Recorded Sex Assigned at Female 08/22/2018 9:48 AM EDT Gender Identity Female 08/22/2018 9:48 AM EDT Sexual Orientation Straight 08/22/2018 9: 48 AM EDT Job Start Date Occupation Industry Not on file Not on file Not on file documented as of this encounter Progress Notes * Alfredo Garsia, [facility] - 09/20/2023 9:38 AM EDT Medication Therapy Disease Management Clinic - Diabetes Management Progress Note Patient Phone Numbers After connecting to the patient via telephone, the patient was identified by name and date of . Patient was then informed that this was a telephone call only visit. The patient agreed to participate. Visit Disposition: Routine follow-up Total call duration was 5 minutes. DIABETES: Current diabetic medications: RESTART: Ozempic 1mg weekly on Sundays STOP: Metformin ER 500mg twice daily - MINOO Diarrhea Medication Injection Site: N/A Lifestyle: Diet: unchanged History of Treatment Barriers: Lifestyle: None Therapy considerations: Renal Function and Cost Medication: metformin ER and IR: MINOO diarrhea Glucose Review/SMBG: No log - highest reading 130 except for after steroid back injection. Hypoglycemia: Does your blood sugar go below 70 mg/dL? No Hyperglycemia symptoms present: none Goal <7 Recent Labs Units 07/17/23 1406 11/14/22 0836 07/11/22 1107 HEMOGLOBIN A1C - [facility] % 6.4* 6.5* 6.2* Recent Labs Units 07/17/23 1406 11/14/22 0836 03/19/22 1200 ESTIMATED GLOMERULAR FILTRATION RATE - [facility] mL/min 50* 51* 46* CREATININE - [facility] mg/dL 1.1* 1.1* 1.2* Lab Results Component Value Date/Time CREATININE - [facility] 1.1 (H) 07/17/2023 02:06 PM CREATININE - [facility] 1.1 (H) 11/14/2022 08:36 AM CREATININE - [facility] 1.2 (H) 03/19/2022 12:00 PM CREATININE - [facility] 1.3 (H) 02/24/2020 02:10 PM CREATININE - [facility] 1.3 (H) 11/04/2019 10:24 AM CREATININE - [facility] 1.2 (H) 02/26/2019 11:36 AM CREATININE, RAND URINE-VMA 126 06/01/2002 08:48 AM CREATININE, RANDOM URINE - [facility] 121 11/14/2022 08:41 AM CREATININE, RANDOM URINE - [facility] 159 11/23/2021 09:57 AM CREATININE, RANDOM URINE - [facility] 47 06/26/2021 02:59 PM CREATININE, RANDOM URINE - [facility] 192 11/04/2019 10:24 AM CREATININE, RANDOM URINE - [facility] 83 01/13/2019 11:21 AM CREATININE, RANDOM URINE - [facility] 26 07/11/2018 03:00 PM CREATININE-OUTSIDE LAB 1.50 (A) 09/28/2015 12:00 AM CREATININE-OUTSIDE LAB 1.42 (A) 05/04/2014 12:00 AM HYPERTENSION: Patient on ACEi/ARB: yes, Losartan 100mg daily BP Readings from Last 3 Encounters: 09/18/23 184/74 08/13/23 128/70 07/25/23 154/84 Blood pressure at goal: yes HYPERLIPIDEMIA: Patient is taking moderate or high intensity statin: yes, Atorvastatin 20mg daily HEALTH MAINTENANCE REVIEW: Health Maintenance Due Topic Date Due Zoster Vaccines (2 of 3) 01/28/2012 Depression Screening 09/06/2021 COVID-19 Vaccine ( season) 2022 Diabetic Eye Exam 09/21/2023 Albumin/Creatinine Ratio 2023 ASSESSMENT & PLAN: ICD-10-CM 1. Type 2 diabetes mellitus with hemoglobin A1c goal of less than 7.0% ([facility]) E11.9 2. Type 2 diabetes mellitus with stage 3b chronic kidney disease, without long- term current use of insulin ([facility]) E11.22 N18.32 BG Readings - Blood sugars not available. BG and A1C at goal except for after steroid back injection Medications - Reviewed current regimen, patient is adherent to regimen. Diet, Exercise, Lifestyle - No significant lifestyle changes since last visit. Discussed with patient today. Patient is agreeable to SMBG 1 time(s) daily rotating. Patient aware to contact clinic if any hypoglycemia before next visit. MEDICATION CHANGES: no change Diabetic Medications: Ozempic 1mg weekly on Sundays HEALTH MAINTENANCE INTERVENTIONS: Labs: Up to Date Immunizations: needs shingles vaccine Foot Exam: Up to Date Eye Exam: Up to Date Annual Wellness Visit: Up to Date FOLLOW UP: No follow up needed unless she has issues. Alfredo Gupta RPh, CACP, CDE Clinical Pharmacist Medication Therapy Management Clinic 09/20/2023 9:38 AM documented in this encounter Plan of Treatment Upcoming Encounters Date Type Department Care Team (Late st Contact Info) Description 10/15/2023 11:00 AM EDT Scheduled Telephone Interventional Pain Center, [facility] [address] [place] [address] Harjit, Nurse Phone Call Interventional Pain [facility] [address] [place] [address] 10/17/2023 2:15 PM EDT Office Visit Orthopaedics [facility] [address] [facility] [place] [address] Omer Hammond, DO [address] [place] [address] 12/03/2023 9:00 AM EDT Imaging Vascular Lab, [facility] II 2nd Floor, [place] [address] [place] [address] 12/11/2023 11:50 AM EDT Office Visit Vascular Surgery, [facility] [address] [facility] [place] [address] Sergei Frost MD [address] [place] [address] 01/07/2024 2:30 PM EDT Office Visit Cardiology, [facility] [address] [facility] [place] [address] Jerry Cano, DO [address] [facility] [place] [address] 02/18/2024 3:00 PM EDT Office Visit General Internal Medicine [facility] [place] [address] [place] [address] Nessa Foreman MD [address] [place] [address] Scheduled Procedures Name Priority Associated Diagnoses Date/Ti [...] Additional history exists CKD HGB USE SMARTSET 41700 11/15/202311/14, 11/14/2022, 07/11/2022, Additional history exists GFR 01/17/2024 07/17/2023, 10/21, 03/19/2022, Additional history exists HbA1c 01/17/2024 07/17/2023, 10/21, 07/11/2022, Additional history exists Diabetic Foot Exam 01/30/2024 01/29/2023, 1 05/21/2020, 02/24/2020, Additional history exists CKD PHOS USE SMARTSET 13057 07/16/202406/21, 07/11/2022, 06/26/2021, Additional history exists DTaP,Tdap,and [...] this encounter Medical Devices Implanted Type Area Mechatronics Technician Device Identifier Shelf Expiration Date Model / Serial / Lot Stent [id number] - [id number] Implanted:Qty: 1 on 01/29/2011 at OR [facility] Right: Renal Artery JNJ : CORDIS ENDOVASCULAR 07/21/2012 [id number] / / [id number] Lens Intraoc 18.5 - [id number] - [id number] Implanted:Qty: 1 on 10/16/2018 by Jhonny Stanton MD at OR [facility] Left: Eye BAUSCH & LOMB 02/19/2023 [id number] / [id number] / [id number] Lens Intraoc 18.0 - [id number] - [id number] Implanted:Qty: 1 on 10/28/2018 by Jhonny Stanton MD at OR [facility] Right: Eye BAUSCH & LOMB 11/19/2022 [id number] / [id number] / documented as of this encounter Visit Diagnoses Diagnosis Type 2 diabetes mellitus with hemoglobin A1c goal of less than 7.0% (HCC)- Primary Type 2 diabetes mellitus with stage 3b chronic kidney disease, without long-term current use of insulin (HCC) documented in this encounter Advance Directives * [...] Advance Directives occurred with: Patient Care Teams School Counsellor Relationship Specialty Start Date End Date Nessa Foreman MD [address] [place] [address] [place] [id number] PCP - General Internal Medicine 05/11/10 documented as of this encounter
--- OUTSIDE RECORDS SUMMARY | 2024-01-06 01:53 | External Medical Summary | Summary of Care ---
Author Name Unknown Organization [facility] Address [address] [facility] [place] [address] Phone [phone] Care Team Providers Care Supervisor Epoxy Fabrication Name Role Phone Nessa Foreman MD Primary Care Provider + Reason for Visit * Reason Comments Follow Up Iovera Encounter Details Date Type Department Care Team (Latest Contact Info) Description 10/17/2023 2:15 PM EDT Office Visit Orthopaedics [facility] [address] [place] [address] Omer Hammond DO [address] [place] [address] Primary osteoarthritis of both knees* Allergies Active Allergy Reactions Criticality Noted Date Comments Allopurinol Low 01/20/2007 Rash Sulfamethoxazole-Trimet hoprim 10/06/2015 Hallucinations, anxiety Metformin Diarrhea,Edema Other 09/06/2023 Penicillins 12/24/2000 hives documented as of this encounter (statuses as of 10/17/2023) Medications Medication Sig Dispensed Refills Start Date End Date Status VITAMIN D 2000 UNITS PO CAPS 1 CAPSULE DAILY 30 Cap 5 11/29/2011 Active ASPIRIN EC 81 MG PO TBECIndications:blo od flow Take 1 Tablet by mouth daily. Active Blood Glucose Monitoring Suppl (Supponor ULTRA SYSTEM) W/DEVICE KITIndications:DM type 2, goal [...] only., Indications: water pill, Reported on 12/03/2022 TresataTouch Ultra In Vitro Strip (Glucose Blood)Indications:T ype [...] directed . 1 Kit 1 04/18/2022 Active TresataTouch UltraSoft Lancets Use as directed 4 times [...] chronic, stage III (GFR 30-59 ml/min) ([facility]) Take 1 Tablet by mouth in the morning. As needed for gout. 30 Tablet 1 12/13/2022 Active Calcitriol 0.25 MCG Oral Capsule (Rocaltrol)Indicati ons:CKD (chronic kidney disease) stage 3, GFR 30-59 ml/min ([facility]) TAKE 1 CAPSULE BY MOUTH [...] A1c goal of less than 7.0% ([facility]) Inject 1 mg under the [...] as of this encounter (statuses as of 10/17/2023) Active Problems Problem Noted Date Diagnosed Date [...] as of this encounter (statuses as of 10/17/2023) Resolved Problems Problem Noted Date Diagnosed Date Resolved Date Endometrial cancer 07/19/2022 Cancer Staging:Pathologic stage from 11/27/2016:FIGO Stage IA(pT1a, pN0, cM0) - Signed by Ronald Oliver MD on 07/20/2022 Overview: History 12/19/20 MASTER BARBER/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 [employer] Other*[id number] 06/19/2010 05/29/2016 Overview: Study Titile: Genomics Markers for Patients with Cardiovascular Disease Project # [id number] PI: Tara Purcell MD Please call [phone] with study related questions Hand Dermatitis 09/24/2007 01/10/2017 Gout 09/09/2006 10/17/2009 Dermatitis 02/07/2005 09/24/2007 Dyslipidemia, goal to be determined 05/08/2004 04/06/2009 Overview: Per Lipid Taxonomy. Vascular complications of renal artery 06/25/2002 01/10/2017 documented as of this encounter (statuses as of 10/17/2023) Immunizations Name Administration Dates Next Due COVID-19 [...] as of this encounter Progress Notes * Omer Hammond, DO - 10/17/2023 2:28 PM EDT ORTHOPAEDIC SURGERY - Clinic Note SUBJECTIVE: Makenna Escobar is a 77 year old female. Chief Complaint Patient presents with Follow Up Iovera HPI: She presents today to discuss IOVERA procedure. At this point she is not interested in pursuing joint replacement. Review of Systems: Constitutional ROS: No fevers, sweats, or chills Cardiovascular ROS: No chest pain Gastrointestinal ROS: No abdominal pain Musculoskeletal/Extremities ROS: Pain Neurologic ROS: No numbness or tingling Review of patient's allergies indicates: Allergen Reactions Bactrim [Sulfamethoxazole-Trimethoprim] Hallucinations, anxiety Metformin Diarrhea and Edema Other Penicillins hives Allopurinol Rash Current Outpatient Medications Medication Sig Dispense Refill VITAMIN D 2000 UNITS PO CAPS 1 CAPSULE DAILY 30 Cap 5 ASPIRIN EC 81 MG PO TBEC Take 1 Tablet by mouth daily. Blood Glucose Monitoring Suppl (Supponor ULTRA SYSTEM) W/DEVICE KIT Use up to four times a day as directed/E11.9 1 Kit 0 OyokeyTOUCH DELICA LANCETS 33G MISC Test up to [...] differently: No sig reported) 90 Capsule 1 Zoster Vac Recomb Adjuvanted 50 MCG/0.5ML Intramuscular Suspension Reconstituted (Shingrix) Inject 0.5 mL into a large muscle now and repeat dose in 60 to 180 days (Patient not taking: Reported on 07/25/2023) 1 Each 1 Furosemide 20 MG Oral Tablet (Lasix) Take by mouth 4 Tablets in the morning. (Patient taking differently: Take 4 Tablets by mouth in the morning. Taking 40mg daily only..) 360 Tablet 3 Vibeaseuch Ultra In Vitro Strip (Glucose Blood) USE [...] times a day E11.9 100 Strip 11 Colchicine 0.6 MG Oral Tablet Take 1 Tablet by mouth in the morning. As needed for gout. 30 Tablet 1 Calcitriol 0.25 MCG Oral Capsule (Rocaltrol) TAKE [...] a week. On Sundays 9 mL 3 traMADol HCl 50 MG Oral Tablet (Ultram) Take 1 Tablet by mouth every 6 hours as needed for Pain, Severe. 14 Tablet 0 LORazepam 0.5 MG Oral Tablet (Ativan) TAKE 1 TABLET BY MOUTH THREE TIMES DAILY NEEDED FOR ANXIETY 90 Tablet 0 No current facility-administered medications for [...] Lipid Taxonomy. Endometrial cancer (HCC) History 12/19/20 MASTER BARBER/Onc note "REBECA" HTN, goal below 140/90 Intraductal [...] ARTERIES performed by NANY MCKEON at [place] [facility] BIOPSY OF BREAST, OPEN 03/23 left fibrodenoma - Dr. Montanez BIOPSY OF BREAST, OPEN 2005 left fibroadenoma BIOPSY OF BREAST, OPEN 02/20/08 Left breast biopsy (benign) at [facility] - Dr. Montanez BREAST-PLACE NEEDLE LOCALIZ 05/08/2012 05/08/2012 LEFT breast needle localication intraductal papilloma with usual ductal hyperplastia [facility] - Dr. Juvenal Montanez COLONOSCOPY, DIAGNOSTIC (RECTUM) 11/06/2016 diverticulosis, repeat 10 yrs/[facility] CORONARY ANGIOGRAPHY CATH PLACEMENT 06/19/2010 CORONARY ANGIOGRAPHY CATH PLACEMENT performed by ALLYSSA GUAJARDO at [facility] CRYOCAUTERY OF CERVIX DILATION AND CURETTAGE (D&C) 11/16/2010 EXC BREAST LESION RADMARK Left 02/02/2019 02/02/2019 left partial mastectomy [facility] Dr. Juvenal Montanez L-/S-SPINE PARAVERTEBRL FACET INJ,2 LEVELS 10/29/2013 L-/S-SPINE PARAVERTEBRL FACET INJ,2 LEVELS performed by Yonathan Brooke DO at OR [facility] LAPAROSCOPY TOTAL HYSTX, UTERUS > 250GM TUBE/OVARY N/A 11/27/2016 Robotic-assisted total laparoscopic hysterectomy and bilateral salpingo- oophorectomy with diagnostic cystoscopy performed by Chris Puckett MD at [place] [facility] LIGATE/CUT OVIDUCT(S) Tubal Ligation REMOVE CATARACT, INSERT LENS PROSTH Left 10/16/2018 left EXTRACAPSULAR CATARACT REMOVAL WITH INTRAOCULAR LENS performed by Jhonny Stanton MD at OR [facility] REMOVE CATARACT, INSERT LENS PROSTH Right 10/28/2018 right EXTRACAPSULAR CATARACT REMOVAL WITH INTRAOCULAR LENS performed by Jhonny Stanton MD at OR [facility] REMOVE GALLBLADDER 1961 Cholecystectomy, Open REMOVE LUMBAR SPINE LAMINA, 3+ SEGS 1999 HNP Excision RENAL / VISCERAL ARTERY [place] ANGIOPLASTY 01/29/2011 Right renal angioplasty and stent 01/29/[address] Mckeon at [facility] RENAL ANGIO BILAT-TECH ONLY 01/2003 Lt renal stent/rt renal angioplasty, Dr steward SACROILIAC JOINT INJECT W/GUIDANCE 05/15/2021 INJECTION SACROILIAC JOINT performed by Eb Collado DO at OR [facility] SACROILIAC JOINT INJECT W/GUIDANCE 12/13/2021 INJECTION SACROILIAC JOINT performed by Eb Collado DO at OR [facility] SACROILIAC JOINT INJECT W/GUIDANCE 09/18/2023 INJECTION SACROILIAC JOINT performed by James Crain DO at [facility] STEREOTAXIC SURGERY Right 12/09/2017 12/09/2017 right breast dx 1. usual ductal hyperplasia 2. adenosis 3. fibrocystic change [facility] US GUIDED BREAST BIOPSY LEFT Left 12/09/2017 12/09/2017 ultrasound guided breast biopsy [facility] - dx A. papillary porliferation with usual ductal hyerplasia . Social History Tobacco Use Smoking status: Never Smokeless tobacco: Never Vaping Use Vaping status: Never Used Substance Use Topics Alcohol use: No Drug use: No Family history: Noncontributory OBJECTIVE: Diagnostic Testing: None today Vital Signs: There were no vitals taken for this visit. Physical Exam: Exam unchanged as compared to previous evaluation ASSESSMENT: Primary osteoarthritis of both knees (Primary) Follow Up: Return for IOVERA procedure, bilateral knee. | For: IOVERA procedure, bilateral knee PLAN: We discussed IOVERA procedure in the office today. She has done reasonably well with viscosupplementation but would like to consider an alternative. Information was provided. She is interested in pursuing such option. All questions answered. This chart was completed in part utilizing [employer] Speech Voice Recognition Software. Grammatical errors, random word insertions, pronoun errors, and incomplete sentences are an occasional consequence of this system due to software limitations, ambient noise, and hardware issues. Any formal questions or concerns about the content, text, or information contained within the body of this dictation should be directly addressed to the provider for clarification. Omer Hammond DO 10/17/2023 2:28 PM documented in this encounter Nursing Notes * Debra Damian MED ASSIST - 10/17/2023 2:13 PM EDT Patient presents today for iovera discussion for bilateral knee documented in this encounter Plan of Treatment Upcoming Encounters Date Type Department Care Team (Latest Contact Info) Description 12/03/2023 9:00 AM EDT Imaging Vascular Lab, [facility] 2nd [facility] [address] [facility] [place] [address] 12/11/2023 11:50 AM EDT Office Visit Vascular Surgery, [facility] 132 [facility] [place] [address] Sergei Frost MD [address] [place] [address] 01/07/2024 2:30 PM EDT Office Visit Cardiology, [facility] [address] [place] [address] Allyssa Cano, DO [address] [place] [address] 01/20/2024 1:45 PM EDT Hospital Encounter OR [facility], Operating Room [facility] [address] [place] [address] James Crain, DO [address] [place] [phone] 01/20/2024 1:45 PM EDT - 01/20/2024 2:10 PM EDT Surgery OR [facility], Operating Room [facility] [address] [place] [phone] James Crain, DO [address] [place] [phone] INJECTION SACROILIAC JOINT 02/18/2024 3:00 PM EDT Office Visit General Internal Medicine [facility] [address] [facility] [place] [address] Nessa Foreman MD [address] [facility] [place] [address] Scheduled Procedures Name Priority Associated Diagnoses Date/Ti [...] Additional history exists CKD HGB USE SMARTSET 14602 11/15/202311/14, 11/14/2022, 07/11/2022, Additional history exists GFR 01/17/2024 07/17/2023, 10/21, 03/19/2022, Additional history exists HbA1c 01/17/2024 07/17/2023, 10/21, 07/11/2022, Additional history exists Diabetic Foot Exam 01/30/2024 01/29/2023, 1 05/21/2020, 02/24/2020, Additional history exists CKD PHOS USE SMARTSET 13820 07/16/202406/21, 07/11/2022, 06/26/2021, Additional history exists DTaP,Tdap,and [...] this encounter Medical Devices Implanted Type Area Occupational Health Professional Device Identifier Shelf Expiration Date Model / Serial / Lot Stent [id number] Frank [id number] - [id number] Implanted:Qty: 1 on 01/29/2011 [place] [facility] [place]: Renal Artery JNJ : CORDIS ENDOVASCULAR 07/21/2012 [id number] / / [id number] Lens Intraoc 18.5 - [id number] - [id number] Implanted:Qty: 1 on 10/16/2018 by Jhonny Stanton MD at OR [facility] Left: Eye BAUSCH & LOMB 02/19/2023 [id number] / [id number] Lens Intraoc 18.0 - [id number] - [id number] Implanted:Qty: 1 on 10/28/2018 by Jhonny Stanton MD at OR [facility] Right: Eye BAUSCH & LOMB 11/19/2022 [id number] / [id number] / documented as of this encounter Visit Diagnoses Diagnosis Primary osteoarthritis of both knees- Primary Primary localized osteoarthrosis, lower leg Inflammation of sacroiliac joint (HCC) Sacroiliitis, not [...] Advance Directives occurred with: Patient Care Teams Supervisor Ep[employer] Fabrication Relationship Specialty Start Date End Date Nessa Foreman MD [address] [place] [id number] PCP - General Internal Medicine 05/11/10 documented as of this encounter
--- OUTSIDE RECORDS SUMMARY | 2024-01-06 01:53 | External Medical Summary | Summary of Care ---
Author Name Unknown Organization [facility] Address [address] [facility] [address] Phone [phone] Care Team Providers Care Counselor Supervisor Name Role Phone Nessa Foreman MD Primary Care Provider + Reason for Visit * Reason Comments eRx-Medication Refill Encounter Details Date Type Department Care Team (Late st Contact Info) Description 10/22/2023 Refill General Internal Medicine [facility] [address] [facility] [place] [address] Nessa Foreman MD 200 [place] [address] Type 2 diabetes mellitus with stage 3b chronic kidney disease, without long-term current use of insulin ([facility]) Allergies Active Allergy Reactions Criticality Noted Date Comments Allopurinol Low 01/20/2007 Rash Sulfamethoxazole-Trimet hoprim 10/06/2015 Hallucinations, anxiety Metformin Diarrhea,Edema Other 09/06/2023 Penicillins 12/24/2000 hives documented as of this encounter (statuses as of 10/23/2023) Medications Medication Sig Dispensed Refills Start Date [...] as directed/E11.9 1 Kit 0 5 Active exozetTOUCH DELICA LANCETS 33G MISCIndications:T ype 2 diabetes [...] only., Indications: water pill, Reported on 12/03/2022 [employer] Ultra In Vitro Strip (Glucose Blood)Indications :Type [...] 30-59 ml/min) ([facility]) Take 1 Tablet by mouth in the morning. As needed for gout. 30 Tablet 1 3 Active Calcitriol 0.25 MCG Oral Capsule (Rocaltrol)Indica tions:CKD (chronic kidney disease) stage 3, GFR 30-59 ml/min ([facility]) TAKE 1 CAPSULE BY MOUTH ONCE DAILY [...] than 7.0% ([facility]) Inject 1 mg under the skin once a week. On Sundays 9 mL 3 4 Active traMADol HCl 50 MG Oral Tablet (Ultram)Indicatio ns:Spinal stenosis of lumbar region without neurogenic claudication Take 1 Tablet by mouth every 6 hours as needed for Pain, Severe. 14 Tablet 4 Active LORazepam 0.5 MG Oral Tablet (Ativan) TAKE 1 TABLET BY MOUTH THREE TIMES DAILY NEEDED FOR ANXIETY 90 Tablet 4 Active LORazepam 0.5 MG Oral Tablet (Ativan) TAKE 1 TABLET BY MOUTH THREE TIMES DAILY NEEDED FOR ANXIETY 90 Tablet 4 10/23/19 24 Discontinued documented as of this encounter (statuses as of 10/23/2023) Active Problems Problem Noted Date Diagnosed Date [...] as of this encounter (statuses as of 10/23/2023) Resolved Problems Problem Noted Date Diagnosed Date Resolved Date Endometrial cancer 07/19/2022 Cancer Staging:Pathologic stage from 11/27/2016:FIGO Stage IA(pT1a, pN0, cM0) - Signed by Ronald Oliver MD on 07/20/2022 Overview: History 12/19/20 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 [employer] Other*[id number] 06/19/2010 05/29/2016 Overview: Study Titile: Genomics Markers for Patients with Cardiovascular Disease Project # [id number] PI: Tara Purcell MD Please call [phone] with study related questions Hand Dermatitis 09/24/2007 01/10/2017 Gout 09/09/2006 10/17/2009 Dermatitis 02/07/2005 09/24/2007 Dyslipidemia, goal to be determined 05/08/2004 04/06/2009 Overview: Per Lipid Taxonomy. Vascular complications of renal artery 06/25/2002 01/10/2017 documented as of this encounter (statuses as of 10/23/2023) Immunizations Name Administration Dates Next Due COVID-19 [...] Telephone Encounter - Nessa Foreman MD - 10/23/2023 4:49 PM EDTSigned Prescriptions: Disp Refills LORazepam 0.5 MG Oral Tablet (Ativan) 90 Tab*0 Sig: TAKE 1 TABLET BY MOUTH THREE TIMES DAILY NEEDED FOR ANXIETY Authorizing Provider: NESSA FOREMAN * Telephone Encounter - Elin Galloway [facility] - 10/23/2023 3:57 PM EDT Pending Prescriptions: Disp Refills LORazepam 0.5 MG Oral Tablet (Ativan) 90 Tab*0 Sig: TAKE 1 TABLET BY MOUTH THREE TIMES DAILY NEEDED FOR ANXIETY * Telephone Encounter - Elin Galloway RP - 10/23/2023 3:55 PM EDT I have reviewed the patients controlled substance dispensing history in the Prescription Drug Monitoring Program in compliance with the [facility] regulations before prescribing a controlled substance. PDMP checked on 10/23/2023. Pending Prescriptions: Disp Refills LORazepam 0.5 MG Oral Tablet (Ativan) [Ph*90 Tab*0 Sig: TAKE 1 TABLET BY MOUTH THREE TIMES DAILY NEEDED FOR ANXIETY Last Visit: 08/13/2023 (in office), Visit date not found (telemedicine) Next Visit: 02/18/2024 Date medication was last filled: 09/04 Date medication is due for refill: 10/05 Pharmacy: [facility] [address] [place] [address] Is this request for a controlled substance? Yes and Urine Drug Screen Not completed Toxicology results: No results found. However, due to the size of the patient record, not all encounters were searched.Please check Results Review for a complete set of results. Please approve if appropriate. Elin Palumbo, PharmD Clinical Pharmacist [facility] ([facility]) [phone] 10/23/2023,3:57 PM documented in this encounter Plan of Treatment Upcoming Encounters Date Type Department Care Team (Latest Contact Info) Description 12/03/2023 9:00 AM EDT Imaging Vascular Lab, [facility] 2nd Floor, [address] [place] [address] 12/11/2023 11:50 AM EDT Office Visit Vascular Surgery, [address] [place] [address] Sergei Frost MD [address] [place] [address] 01/07/2024 2:30 PM EDT Office Visit Cardiology, [address] [place] [address] Jerry Cano O, DO 132 [facility] [place] [address] 01/20/2024 1:45 PM EDT Hospital Encounter OR O[facility], Operating Room OSS [address] [place] [phone] James Crain, DO [address] [place] [phone] 01/20/2024 1:45 PM EDT - 01/20/2024 2:10 PM EDT Surgery OR [facility], Operating Room O[facility] [address] [place] [phone] James Crain, DO [address] [place] [phone] INJECTION SACROILIAC JOINT 02/18/2024 3:00 PM EDT Office Visit General Internal Medicine [facility] 200 [facility] [place] [address] Nessa Foreman MD 200 [facility] [place] [address] Scheduled Orders Name Type Priority Associated Diagnoses Orde r Schedule ALBUMIN / CREATININE RATIO, URINE Lab Routine Type 2 diabetes mellitus with stage 3b chronic kidney disease, without long-term current use of insulin (HCC) Expected: 10/23/2023, Expires: 10/22/2024 CBC WITH WBC DIFFERENTIAL Lab Routine Type 2 diabetes mellitus with stage 3b chronic kidney disease, without long-term current use of insulin (HCC) Expected: 10/23/2023 (Approximate), Expires: 10/22/2024 LIPID PANEL WITH DIRECT LDL IF TG IS HIGH Lab Routine Type 2 diabetes mellitus with stage 3b chronic kidney disease, without long-term current use of insulin (HCC) Expected: 10/23/2023 (Approximate), Expires: 10/22/2024 Scheduled Procedures Name Priority Associated Diagnoses Date/Ti [...] Additional history exists CKD HGB USE SMARTSET 19671 11/15/202311/14, 11/14/2022, 07/11/2022, Additional history exists Influenza Vaccine (FLU shot) (#1) 2023 01/29/2023, 03/08/2022, 02/15/2021, Additional history exists GFR 01/17/2024 07/17/2023, 072 09/2022, 03/19/2022, Additional history exists HbA1c 01/17/2024 07/17/2023, 072 09/2022, 07/11/2022, Additional history exists Diabetic Foot Exam 01/30/2024 01/29/2023, 1 05/21/2020, 02/24/2020, Additional history exists CKD PHOS USE SMARTSET 53384 07/16/202406/21, 07/11/2022, 06/26/2021, Additional history exists DTaP,Tdap,and [...] this encounter Medical Devices Implanted Type Area Packing Line Operator Device Identifier Shelf Expiration Date Model / Serial / Lot Stent [id number] Frank [id number] - [id number] Implanted:Qty: 1 on 01/29/2011 at [place] [facility] [place] Right: Renal Artery JNJ : CORDIS ENDOVASCULAR 07/21/2012 [id number] / / [id number] Lens Intraoc 18.5 - [id number] - [id number] Implanted:Qty: 1 on 10/16/2018 by Jhonny Stanton MD at OR [facility] Left: Eye BAUSCH & LOMB 02/19/2023 [id number] / [id number] / [id number] Lens Intraoc 18.0 - [id number] - [id number] Implanted:Qty: 1 on 10/28/2018 by Jhonny Stanton MD at OR [facility] Right: Eye BAUSCH & LOMB 11/19/2022 [id number] / [id number] / documented as of this encounter Visit Diagnoses Diagnosis Type 2 diabetes mellitus with stage 3b chronic kidney disease, without long-term current use of insulin (HCC) Inflammation of sacroiliac joint (HCC) Sacroiliitis, [...] Advance Directives occurred with: Patient Care Teams Counselor Supervisor Relationship Specialty Start Date End Date Nessa Foreman MD 200 [facility] [place] [address] PCP - General Internal Medicine 05/11/10 documented as of this encounter
--- OUTSIDE RECORDS SUMMARY | 2024-01-06 01:53 | External Medical Summary | Summary of Care ---
Author Name Unknown Organization [facility] Address [address] [facility] [place] [address] Phone [phone] Care Team Providers Care Planning Specialist Name Role Phone Nessa Foreman MD Primary Care Provider + Encounter Details Date Type Department Care Team (Late st Contact Info) Description 10/22/2023 Population Health External Data Unspecified Department Allergies [...] goal of less than 7.0% ([facility]) Test up to twice daily DX E [...] only., Indications: water pill, Reported on 12/03/2022 [email or web address] Ultra In Vitro Strip (Glucose Blood)Indications:T ype 2 diabetes mellitus with hemoglobin A1c goal of less than 7.0% ([facility]) USE 1 STRIP TO CHECK GLUCOSE ONCE TO TWICE DAILY DIRECTED 200 Strip 3 01/24/2022 Active ProAir HFA 108 (90 Base) MCG/ACT Inhalation Aerosol SolutionIndications :Wheezing Inhale 2 Puffs by mouth every 4 hours as needed for Wheezing. 18 g 3 04/07/2022 Active DirectlyToThubrikar Aortic Valve Verio w/Device Kit Use as directed . 1 Kit 1 04/18/2022 Active Poly Adaptive UltraSoft Lancets Use as directed 4 times [...] chronic, stage III (GFR 30-59 ml/min) ([facility]) Take 1 Tablet by mouth in the morning. As needed for gout. 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 [employer] Other*[id number] 06/19/2010 05/29/2016 Overview: Study Titile: Gen[employer] Markers for Patients with Cardiovascular Disease Project # [id number] PI: Tara Purcell MD Please call [phone] with study related questions Hand Dermatitis 09/24/2007 [...] AM EDT Imaging Vascular Lab, [facility] 2nd Floor, [place] [address] [place], [place] [address] 12/11/2023 11:50 AM EDT Office Visit Vascular Surgery, [facility] [address] [place] [address] Sergei Frost MD [address] [place] [facility] [address] 01/07/2024 2:30 PM EDT Office Visit Cardiology, [facility] [address] [place], [place] [address] Jerry Cano, DO [address] [place] [address] 01/20/2024 1:45 PM EDT Hospital Encounter OR [facility], Operating Room OSS [address] [place] [phone] James Crain DO [address] [place] [phone] 01/20/2024 1:45 PM EDT - 01/20/2024 2:10 PM EDT Surgery OR [facility], Operating Room OSS [address] [place] [phone] James Crian DO [address] [place] [phone] INJECTION SACROILIAC JOINT 02/18/2024 3:00 PM EDT Office Visit General Internal Medicine [facility] [address] [place] [address] Nessa Foreman MD [address] [place] [address] Scheduled Procedures Name Priority Associated Diagnoses Date/Ti [...] Additional history exists CKD HGB USE SMARTSET 06368 11/15/202311/14, 11/14/2022, 07/11/2022, Additional history exists Influenza Vaccine (FLU shot) (#1) 2023 01/29/2023, 03/08/2022, 02/15/2021, Additional history exists GFR 01/17/2024 07/17/2023, 2 09/2022, 03/19/2022, Additional history exists HbA1c 01/17/2024 07/17/2023, 10/21, 07/11/2022, Additional history exists Diabetic Foot Exam 01/30/2024 01/29/2023, 1 05/21/2020, 02/24/2020, Additional history exists CKD PHOS USE SMARTSET 44743 07/16/202406/21, 07/11/2022, 06/26/2021, Additional history exists DTaP,Tdap,and [...] this encounter Medical Devices Implanted Type Area Hand Paint Mixer Device Identifier Shelf Expiration Date Model / Serial / Lot Stent [id number] Frank [id number] - [id number] Implanted:Qty: 1 on 01/29/[address] [facility] [place] Right: Renal Artery JNJ : CORDIS ENDOVASCULAR 07/21/2012 [id number] / / [id number] Lens Intraoc 18.5 - [id number] - [id number] Implanted:Qty: 1 on 10/16/2018 by Jhonny Stanton MD at OR [facility] Left: Eye BAUSCH & LOMB 02/19/2023 [id number] / [id number] / [id number] Lens Intraoc 18.0 - [id number] - [id number] Implanted:Qty: 1 on 10/28/2018 by Jhonny Stanton MD at OR [facility] Right: Eye BAUSCH & LOMB 11/19/2022 [id number] / [id number] / documented as of this encounter Advance [...] Advance Directives occurred with: Patient Care Teams Planning Specialist Relationship Specialty Start Date End Date Nessa Foreman MD [address] [place], [place] [address] [address] PCP - General Internal Medicine 05/11/10 documented as of this encounter
--- OUTSIDE RECORDS SUMMARY | 2024-01-06 01:53 | External Medical Summary | Summary of Care ---
Author Name Unknown Organization [facility] Address [address] [facility] [place] [address] Phone [phone] Care Team Providers Care Supervisor Drying Name Role Phone Nessa Foreman MD Primary [...] only., Indications: water pill, Reported on 12/03/2022 Code Green [employer]uch Ultra In Vitro Strip (Glucose Blood)Indications:T ype 2 diabetes mellitus with hemoglobin A1c goal of less than 7.0% ([facility]) USE 1 STRIP TO CHECK GLUCOSE ONCE TO TWICE DAILY DIRECTED 200 Strip 3 01/24/2022 Active ProAir HFA 108 (90 Base) MCG/ACT Inhalation Aerosol SolutionIndications :Wheezing Inhale 2 Puffs by mouth every 4 hours as needed for Wheezing. 18 g 3 04/07/2022 Active AdBm TechnologiesTouch Verio w/Device Kit Use as directed . 1 Kit 1 04/18/2022 Active AdBm TechnologiesTouch UltraSoft Lancets Use as directed 4 times [...] disease, chronic, stage III (GFR 30-59 ml/min) ([facility]) Take 1 Tablet by mouth in the morning. As needed for gout. 30 Tablet 1 12/13/2022 Active Calcitriol 0.25 MCG Oral Capsule (Rocaltrol)Indicati ons:CKD (chronic kidney disease) stage 3, GFR 30-59 ml/min ([facility]) TAKE 1 CAPSULE BY MOUTH [...] hemoglobin A1c goal of less than 7.0% ([facility]) Inject 1 mg under the [...] Oliver MD on 07/20/2022 Overview: History 8/30/21 BAKER BISCUIT/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 [employer] Other*[id number] 06/19/2010 05/29/2016 Overview: Study Titile: Genomics Markers for Patients with Cardiovascular Disease Project # [id number] PI: Tara Purcell MD Please call [phone] with study related questions Hand Dermatitis 09/24/2007 [...] AM EDT Scheduled Telephone Interventional Pain Center, [facility] [address] [place] [address] Harjit, Nurse Phone Call Interventional Pain [facility] [address] [place] [phone] 10/17/2023 2:15 PM EDT Office Visit Orthopaedics [facility] [place] [address] Omer Hammond, DO [address] [place] [address] 12/03/2023 9:00 AM EDT Imaging Vascular Lab, [facility] 2nd Floor, [place] [facility] [place] [address] 12/11/2023 11:50 AM EDT Office Visit Vascular Surgery, [facility] 132 [facility] [place] [address] Sergei Frost MD [address] [place] [address] 01/07/2024 2:30 PM EDT Office Visit Cardiology, [facility] 132 [facility] [place] [address] Jerry Cano, DO 132 [facility] [place] [address] 02/18/2024 3:00 PM EDT Office Visit General Internal Medicine [facility] [place] [address] [place] [address] Nessa Foreman MD [address] [place] [address] Scheduled Procedures Name Priority Associated Diagnoses Date/Ti [...] Additional history exists CKD HGB USE SMARTSET 69756 11/15/202311/14, 11/14/2022, 07/11/2022, Additional history exists GFR 01/17/2024 07/17/2023, 10/21, 03/19/2022, Additional history exists HbA1c 01/17/2024 07/17/2023, 10/21, 07/11/2022, Additional history exists Diabetic Foot Exam 01/30/2024 01/29/2023, 1 05/21/2020, 02/24/2020, Additional history exists CKD PHOS USE SMARTSET 20828 07/16/202406/21, 07/11/2022, 06/26/2021, Additional history exists DTaP,Tdap,and [...] this encounter Medical Devices Implanted Type Area Family And Consumer Science Professor Device Identifier Shelf Expiration Date Model / Serial / Lot Stent [id number] Frank [id number] - [id number] Implanted:Qty: 1 on 01/29/2011 at [place] [facility] [place] Right: Renal Artery JNJ : CORDIS ENDOVASCULAR 07/21/2012 [id number] / / [id number] Lens Intraoc 18.5 - [id number] - [id number] Implanted:Qty: 1 on 10/16/2018 by Jhonny Stanton MD at OR [facility] Left: Eye BAUSCH & LOMB 02/19/2023 [id number] / [id number] / [id number] Lens Intraoc 18.0 - [id number] - [id number] Implanted:Qty: 1 on 10/28/2018 by Jhonny Stanton MD at OR [facility] Right: Eye BAUSCH & LOMB 11/19/2022 [id number] / [id number] / documented as of this encounter Advance [...] Directives occurred with: Patient Care Teams Supervisor Drying Relationship Specialty Start Date End Date Nessa Foreman MD [address] [place] [address] PCP - General Internal Medicine 05/11/10 documented as of this encounter
--- OUTSIDE RECORDS SUMMARY | 2024-01-06 01:53 | External Medical Summary | Summary of Care ---
Author Name Unknown Organization [facility] Address [address] [facility] [place] [address] Phone [phone] Care Team Providers Care Tamale Machine Feeder Name Role Phone Nessa Foreman MD Primary [...] only., Indications: water pill, Reported on 12/03/2022 [employer] Ultra In Vitro Strip (Glucose Blood)Indications:T ype 2 diabetes mellitus with hemoglobin A1c goal of less than 7.0% ([facility]) USE 1 STRIP TO CHECK GLUCOSE ONCE TO TWICE DAILY DIRECTED 200 Strip 3 01/24/2022 Active ProAir HFA 108 (90 Base) MCG/ACT Inhalation Aerosol SolutionIndications :Wheezing Inhale 2 Puffs by mouth every 4 hours as needed for Wheezing. 18 g 3 04/07/2022 Active LoraxAgTouch Verio w/Device Kit Use as directed . 1 Kit 1 04/18/2022 Active LoraxAgTouch UltraSoft Lancets Use as directed 4 times [...] stage III (GFR 30-59 ml/min) ([facility]) Take 1 Tablet by mouth in the morning. As needed for gout. 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 [employer] Other*[id number] 06/19/2010 05/29/2016 Overview: Study Titile: Genomics Markers for Patients with Cardiovascular Disease Project # [id number] PI: Tara Purcell MD Please call [phone] with study related questions Hand Dermatitis 09/24/2007 [...] AM EDT Scheduled Telephone Interventional Pain Center, [facility] [address] [place] [address] Harjit, Nurse Phone Call Interventional Pain [place] [address] [place] [phone] 10/17/2023 2:15 PM EDT Office Visit [facility]opaedics [facility] [place] [address] Omer Hammond, DO [address] [place] [address] 12/03/2023 9:00 AM EDT Imaging Vascular Lab, [facility] 2nd Floor, [place] [facility] [place] [address] 12/11/2023 11:50 AM EDT Office Visit Vascular Surgery, [facility] 132 [facility] [place] [address] Sergei Frost MD [address] [place] [address] 01/07/2024 2:30 PM EDT Office Visit Cardiology, [facility] 132 [facility] [place] [address] Jerry Cano, DO 132 [facility] [place] [address] 02/18/2024 3:00 PM EDT Office Visit General Internal Medicine [facility] [place] [address] [place] [address] Nessa Foreman MD [address] [place] [address] Scheduled Procedures Name Priority Associated Diagnoses Date/Ti [...] Additional history exists CKD HGB USE SMARTSET 22073 11/15/202311/14, 11/14/2022, 07/11/2022, Additional history exists GFR 01/17/2024 07/17/2023, 10/21, 03/19/2022, Additional history exists HbA1c 01/17/2024 07/17/2023, 10/21, 07/11/2022, Additional history exists Diabetic Foot Exam 01/30/2024 01/29/2023, 1 05/21/2020, 02/24/2020, Additional history exists CKD PHOS USE SMARTSET 07640 07/16/202406/21, 07/11/2022, 06/26/2021, Additional history exists DTaP,Tdap,and [...] this encounter Medical Devices Implanted Type Area Alteration Hand Device Identifier Shelf Expiration Date Model / Serial / Lot Stent [id number] Frank [id number] - [id number] Implanted:Qty: 1 on 01/29/2011 at [place] [facility] [place] Right: Renal Artery JNJ : CORDIS ENDOVASCULAR 07/21/2012 [id number] / / [id number] Lens Intraoc 18.5 - [id number] - [id number] Implanted:Qty: 1 on 10/16/2018 by Jhonny Stanton MD at OR [facility] Left: Eye BAUSCH & LOMB 02/19/2023 [id number] / [id number] / [id number] Lens Intraoc 18.0 - [id number] - [id number] Implanted:Qty: 1 on 10/28/2018 by Jhonny Stanton MD at OR [facility] Right: Eye BAUSCH & LOMB 11/19/2022 [id number] / [id number] / documented as of this encounter Advance [...] Advance Directives occurred with: Patient Care Teams Tamale Machine Feeder Relationship Specialty Start Date End Date Nessa Foreman MD [address] [place] [address] PCP - General Internal Medicine 05/11/10 documented as of this encounter
--- OUTSIDE RECORDS SUMMARY | 2024-01-06 01:53 | External Medical Summary | Summary of Care ---
Author Name Unknown Organization [facility] Address [address] [facility] [place] [address] Phone [phone] Care Team Providers Care Rock Climbing Team Member Name Role Phone Nessa Foreman MD Primary Care Provider + Encounter Details Date Type Department Care Team (Late st Contact Info) Description 10/29/2023 Orders Only PATIENT PORTAL DO NOT DELETE THIS DEPT USED BY [place] [id number] Allergies Active Allergy Reactions Criticality Noted Date Comments Allopurinol Low 01/20/2007 Rash Sulfamethoxazole-Trimet hoprim 10/06/2015 Hallucinations, anxiety Metformin Diarrhea,Edema Other 09/06/2023 Penicillins 12/24/2000 hives documented as of this encounter (statuses as of 10/29/2023) Medications Medication Sig Dispensed Refills Start Date End Date Status VITAMIN D 2000 UNITS PO CAPS 1 CAPSULE DAILY 30 Cap 5 11/29/2011 Active ASPIRIN EC 81 MG PO TBECIndications:blo od flow Take 1 Tablet by mouth daily. Active Blood Glucose Monitoring Suppl (BRAINREPUBLICTOUCH ULTRA SYSTEM) W/DEVICE KITIndications:DM type 2, goal A1c below 7 Use up to four times a day as directed/E11.9 1 Kit 0 02/04/2015 Active ONETOUCH DELICA LANCETS 33G MISCIndications:Typ e 2 diabetes mellitus with hemoglobin A1c goal of less than 7.0% ([facility]) Test up to twice daily DX E [...] only., Indications: water pill, Reported on 12/03/2022 Reffpediauch Ultra In Vitro Strip (Glucose Blood)Indications:T ype 2 diabetes mellitus with hemoglobin A1c goal of less than 7.0% (HCC) USE 1 STRIP TO CHECK GLUCOSE ONCE TO TWICE DAILY DIRECTED 200 Strip 3 01/24/2022 Active ProAir HFA 108 (90 Base) MCG/ACT Inhalation Aerosol SolutionIndications :Wheezing Inhale 2 Puffs by mouth every 4 hours as needed for Wheezing. 18 g 3 04/07/2022 Active RedMicaToMeilimei Verio w/Device Kit Use as directed . 1 Kit 1 04/18/2022 Active RedMicaTouch UltraSoft Lancets Use as directed 4 times [...] disease, chronic, stage III (GFR 30-59 ml/min) ([facility]) Take 1 Tablet by mouth in the morning. As needed for gout. 30 Tablet 1 12/13/2022 Active Calcitriol 0.25 MCG Oral Capsule (Rocaltrol)Indicati ons:CKD (chronic kidney disease) stage 3, GFR 30-59 ml/min ([facility]) TAKE 1 CAPSULE BY MOUTH ONCE DAILY [...] hemoglobin A1c goal of less than 7.0% (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 [employer] Other*[id number] 06/19/2010 05/29/2016 Overview: Study Titile: Genomics Markers for Patients with Cardiovascular Disease Project # [id number] PI: Tara Purcell MD Please call [phone] with study related questions Hand Dermatitis 09/24/2007 01/10/2017 Gout 09/09/2006 10/17/2009 Dermatitis 02/07/2005 09/24/2007 Dyslipidemia, goal to be determined 05/08/2004 04/06/2009 Overview: Per Lipid Taxonomy. Vascular complications of renal artery 06/25/2002 01/10/2017 documented as of this encounter (statuses as of 10/29/2023) Immunizations Name Administration Dates Next Due COVID-19 [...] 12/03/2023 9:00 AM EDT [facility] [address] [place] [address] 12/11/2023 11:50 AM EDT Office Visit Vascular Surgery, [facility] [address] [place] [address] Sergei Frost MD [address] [place] [address] 01/07/2024 2:30 PM EDT Office Visit Cardiology, [facility] [address] [place] [address] Jerry Cano, DO [address] [place] [phone] 01/20/2024 1:45 PM EDT Hospital Encounter OR [facility], Operating Room [facility] [address] [place] [phone] James Crain DO [address] [place] [phone] 01/20/2024 1:45 PM EDT - 01/20/2024 2:10 PM EDT Surgery OR [facility], Operating Room [facility] [address] [place] [phone] James Crain DO [address] [place] [phone] INJECTION SACROILIAC JOINT 02/18/2024 3:00 PM EDT Office Visit General Internal Medicine [facility] [address] [place] [address] Nessa Foreman MD [address] [place] [address] Scheduled Procedures Name Priority Associated Diagnoses Date/Ti [...] Additional history exists CKD HGB USE SMARTSET 40583 11/15/202311/14, 11/14/2022, 07/11/2022, Additional history exists Influenza Vaccine (FLU shot) (#1) 2023 01/29/2023, 03/08/2022, 02/15/2021, Additional history exists GFR 01/17/2024 07/17/2023, 10/21, 03/19/2022, Additional history exists HbA1c 01/17/2024 07/17/2023, 10/21, 07/11/2022, Additional history exists Diabetic Foot Exam 01/30/2024 01/29/2023, 1 05/21/2020, 02/24/2020, Additional history exists CKD PHOS USE SMARTSET 16665 07/16/202406/21, 07/11/2022, 06/26/2021, Additional history exists DTaP,Tdap,and [...] this encounter Medical Devices Implanted Type Area Biochemistry Professor Device Identifier Shelf Expiration Date Model / Serial / Lot Stent [id number] Frank [id number] - [id number] Implanted:Qty: 1 on 01/29/2011 [place] [facility] [place]: Renal Artery JNJ : CORDIS ENDOVASCULAR 07/21/2012 [id number] / / [id number] Lens Intraoc 18.5 - [id number] - [id number] Implanted:Qty: 1 on 10/16/2018 by Jhonny Stanton MD at OR [facility] Left: Eye BAUSCH & LOMB 02/19/2023 [id number] / [id number] / [id number] Lens Intraoc 18.0 - [id number] - [id number] Implanted:Qty: 1 on 10/28/2018 by Jhonny Stanton MD at OR [facility] Right: Eye BAUSCH & LOMB 11/19/2022 [id number] / [id number] / documented as of this encounter Advance [...] Advance Directives occurred with: Patient Care Teams Rock Climbing Team Member Relationship Specialty Start Date End Date Nessa Foreman MD [address] [facility] [place] [address] PCP - General Internal Medicine 05/11/10 documented as of this encounter
--- OUTSIDE RECORDS SUMMARY | 2024-01-06 01:53 | External Medical Summary | Summary of Care ---
Author Name Unknown Organization [facility] Address [address] [facility] [address] Phone [phone] Care Team Providers Care Bullard Operator Name Role Phone Nessa Foreman MD Primary Care Provider + Reason for Visit * Reason Onset Date Comments Nurse Telephone Follow Up 10/15/2023 4 Right SI Encounter Details Date Type Department Care Team (Late st Contact Info) Description 10/15/2023 11:00 AM EDT Scheduled Telephone Interventional Pain Center, [facility] [address] [place] [address] Nurse Harjit Phone Call Interventional Pain [facility] [address] [place] [phone] Sacroiliitis (HCC)* Allergies Active Allergy Reactions Criticality Noted Date Comments Allopurinol Low 01/20/2007 Rash Sulfamethoxazole-Trimet hoprim 10/06/2015 Hallucinations, anxiety Metformin Diarrhea,Edema Other 09/06/2023 Penicillins 12/24/2000 hives documented as of this encounter (statuses as of 10/15/2023) Medications Medication Sig Dispensed Refills Start Date End Date Status VITAMIN D 2000 UNITS PO CAPS 1 CAPSULE DAILY 30 Cap 5 11/29/2011 Active ASPIRIN EC 81 MG PO TBECIndications:blo od flow Take 1 Tablet by mouth daily. Active Blood Glucose Monitoring Suppl (Augur[employer] ULTRA SYSTEM) W/DEVICE KITIndications:DM type 2, goal [...] only., Indications: water pill, Reported on 12/03/2022 [facility] Ultra In Vitro Strip (Glucose Blood)Indications:T ype [...] directed . 1 Kit 1 04/18/2022 Active World Vital RecordsTouch UltraSoft Lancets Use as directed 4 times [...] stage III (GFR 30-59 ml/min) ([facility]) Take 1 Tablet by mouth in the morning. As needed for gout. 30 Tablet 1 12/13/2022 Active Calcitriol 0.25 MCG Oral Capsule (Rocaltrol)Indicati ons:CKD (chronic kidney disease) stage 3, GFR 30-59 ml/min ([facility]) TAKE 1 CAPSULE BY MOUTH [...] as of this encounter (statuses as of 10/15/2023) Active Problems Problem Noted Date Diagnosed Date [...] as of this encounter (statuses as of 10/15/2023) Resolved Problems Problem Noted Date Diagnosed Date Resolved Date Endometrial cancer 07/19/2022 Cancer Staging:Pathologic stage from 11/27/2016:FIGO Stage IA(pT1a, pN0, cM0) - Signed by Ronald Oliver MD on 07/20/2022 Overview: History 12/19/20 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 [employer] Other*[id number] 06/19/2010 05/29/2016 Overview: Study Titile: Genomics Markers for Patients with Cardiovascular Disease Project # [id number] PI: Tara Purcell MD Please call [phone] with study related questions Hand Dermatitis 09/24/2007 01/10/2017 Gout 09/09/2006 10/17/2009 Dermatitis 02/07/2005 09/24/2007 Dyslipidemia, goal to be determined 05/08/2004 04/06/2009 Overview: Per Lipid Taxonomy. Vascular complications of renal artery 06/25/2002 01/10/2017 documented as of this encounter (statuses as of 10/15/2023) Immunizations Name Administration Dates Next Due COVID-19 [...] Split, I IV3, With Preserve, Inj 04/28/2014,01/27/2013,02/19/2012,01/03,01/11/2010,02/27/2008,02/17/2007 ,02/22/2006,02/12/2005,02/01/2003,01/21 TD, Preservative Free 02/10/2018 TDAP, [...] as of this encounter Miscellaneous Notes * Addendum Note - Aj Hannah PA-C - 10/15/2023 12:20 PM EDTAddended by: AJ HANNAH on: 10/15/2023 12:20 PM Modules accepted: Orders * Telephone Encounter - Aj Hannah PA-C - 10/15/2023 12:17 PM EDT 75% pain relief after R SI joint injection 09/18/23. Can continue OTC medications as needed. Repeat injection ordered - recommend spacing by at least four months. 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 * Telephone Encounter - Rossi Pelayo LPN - 10/15/2023 9:38 AM EDT 09/18/23 Right SI Patient reports 75% reduction in pain currently. Patient stated that her pain is worse in the morning and rates it a 6/10 on the pain scale at this time. Patient still taking Tylenol and Advil at times. Patient reports the pain is Right hip/ sciatica constant sharp/achy radiates down right leg posteriorly and stops above the knee. Denies numbness/tingling/burning. Patient is happy with injection and would like to schedule a repeat in 6 months. documented in this encounter Plan of Treatment Upcoming Encounters Date Type Department Care Team (Late st Contact Info) Description 10/17/2023 2:15 PM EDT Office Visit Orthopaedics [facility] [address] [place] [address] Omer Hammond, DO [address] [place] [address] 12/03/2023 9:00 AM EDT Imaging Vascular Lab, [facility] 2nd Floor, [place] [address] [facility] [place] [address] 12/11/2023 11:50 AM EDT Office Visit Vascular Surgery, [facility] [address] [facility] [place] [address] Sergei Frost MD [address] [place] [address] 01/07/2024 2:30 PM EDT Office Visit Cardiology, [facility] [address] [facility] [place] [address] Jerry Cano, DO [address] [place] [address] 02/18/2024 3:00 PM EDT Office Visit General Internal Medicine [facility] [address] [place] [address] Nessa Foreman MD [address] [facility] [address] Scheduled Orders Name Type Priority Associated Diagnoses Orde r Schedule SACROILIAC JOINT INJECT W/GUIDANCE Procedures Routine Sacroiliitis (HCC) Expected: 01/15/2024 (Approximate), Expires: 11/13/2024 Scheduled Procedures Name Priority Associated Diagnoses Date/Ti [...] Additional history exists CKD HGB USE SMARTSET 28574 11/15/202311/14, 11/14/2022, 07/11/2022, Additional history exists GFR 01/17/2024 07/17/2023, 10/21, 03/19/2022, Additional history exists HbA1c 01/17/2024 07/17/2023, 10/21, 07/11/2022, Additional history exists Diabetic Foot Exam 01/30/2024 01/29/2023, 1 05/21/2020, 02/24/2020, Additional history exists CKD PHOS USE SMARTSET 10971 07/16/202406/21, 07/11/2022, 06/26/2021, Additional history exists DTaP,Tdap,and [...] this encounter Medical Devices Implanted Type Area Production Editor Device Identifier Shelf Expiration Date Model / Serial / Lot Stent [id number] Frank [id number] - [id number] Implanted:Qty: 1 on 01/29/2011 at [place] [facility] [place] Right: Renal Artery JNJ : CORDIS ENDOVASCULAR 07/21/2012 [id number] / / [id number] Lens Intraoc 18.5 - [id number] - [id number] Implanted:Qty: 1 on 10/16/2018 by hJonny Stanton MD at OR [facility] Left: Eye BAUSCH & LOMB 02/19/2023 [id number] / [id number] / [id number] Lens Intraoc 18.0 - [id number] - [id number] Implanted:Qty: 1 on 10/28/2018 by Jhonny Stanton MD at OR [facility] Right: Eye BAUSCH & LOMB 11/19/2022 [id number] / [id number] / documented as of this encounter Visit Diagnoses Diagnosis Sacroiliitis (HCC)- Primary Sacroiliitis, not elsewhere classified documented in this [...] Advance Directives occurred with: Patient Care Teams Bullard Operator Relationship Specialty Start Date End Date Nessa Foreman MD [address] [place] [address] PCP - General Internal Medicine 05/11/10 documented as of this encounter
--- OUTSIDE RECORDS SUMMARY | 2024-01-06 01:53 | External Medical Summary | Summary of Care ---
Author Name Unknown Organization [facility] Address [address] [facility] [address] Phone [phone] Care Team Providers Care Education Professor Name Role Phone Nessa Foreman MD Primary Care Provider + Reason for Visit * Reason Onset Date Comments Nurse Telephone Follow Up 10/15/2023 4 Right SI Encounter Details Date Type Department Care Team (Late st Contact Info) Description 10/15/2023 11:00 AM EDT Scheduled Telephone Interventional Pain Center, [facility] [address] [place] [address] Harjit Nurse Phone Call Interventional Pain [facility] [address] [place] [phone] Arrived Allergies Active Allergy Reactions Criticality Noted Date [...] as directed/E11.9 1 Kit 0 02/04/2015 Active DakwakTOUCH DELICA LANCETS 33G MISCIndications:Typ e 2 diabetes [...] only., Indications: water pill, Reported on 12/03/2022 [employer] Ultra In Vitro Strip (Glucose Blood)Indications:T ype 2 diabetes mellitus with hemoglobin A1c goal of less than 7.0% (HCC) USE 1 STRIP TO CHECK GLUCOSE ONCE TO TWICE DAILY DIRECTED 200 Strip 3 01/24/2022 Active ProAir HFA 108 (90 Base) MCG/ACT Inhalation Aerosol SolutionIndications :Wheezing Inhale 2 Puffs by mouth every 4 hours as needed for Wheezing. 18 g 3 04/07/2022 Active DodreamsTouch Verio w/Device Kit Use as directed . 1 Kit 1 04/18/2022 Active DodreamsTouch UltraSoft Lancets Use as directed 4 times [...] stage III (GFR 30-59 ml/min) ([facility]) Take 1 Tablet by mouth in the morning. As needed for gout. 30 Tablet 1 12/13/2022 Active Calcitriol 0.25 MCG Oral Capsule (Rocaltrol)Indicati ons:CKD (chronic kidney disease) stage 3, GFR 30-59 ml/min ([facility]) TAKE 1 CAPSULE BY MOUTH [...] goal of less than 7.0% ([facility]) Inject 1 mg under the [...] 04/24/2016 Renal artery stenosis 09/02/2015 Renovascular hypertension [facility] goal blood pressure less than 140/90 09/02/2015 [...] Oliver MD on 07/20/2022 Overview: History 12/19/20 TAPE DUPLICATOR/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 [employer] Other*[id number] 06/19/2010 05/29/2016 Overview: Study Titile: Genomics Markers for Patients with Cardiovascular Disease Project # [id number] PI: Tara Purcell MD Please call [phone] with study related questions Hand Dermatitis 09/24/2007 [...] encounter Miscellaneous Notes * Telephone Encounter - Rossi Pelayo LPN [...] 10/17/2023 2:15 PM EDT Office Visit Orthopaedics [facility] [address] [facility] [place] [address] Omer Hammond, [address] [facility] [place] [address] 12/03/2023 9:00 AM EDT Imaging Vascular Lab, [facility] II 2nd Floor, [place] [address] [facility] [place] [address] 12/11/2023 11:50 AM EDT Office Visit Vascular Surgery, [facility] [address] [facility] [place] [address] Sergei Frost MD [address] [place] [address] 01/07/2024 2:30 PM EDT Office Visit Cardiology, [facility] [address] [place] [address] Jerry Cano O, DO [address] [place] [phone] 02/18/2024 3:00 PM EDT Office Visit General Internal Medicine [facility] [address] [facility] [place] [address] Nessa Foreman MD [address] [facility] [place] [address] Scheduled Procedures Name Priority Associated Diagnoses Date/Ti [...] Additional history exists CKD HGB USE SMARTSET 58799 11/15/202311/14, 11/14/2022, 07/11/2022, Additional history exists GFR 01/17/2024 07/17/2023, 10/21, 03/19/2022, Additional history exists HbA1c 01/17/2024 07/17/2023, 10/21, 07/11/2022, Additional history exists Diabetic Foot Exam 01/30/2024 01/29/2023, 1 05/21/2020, 02/24/2020, Additional history exists CKD PHOS USE SMARTSET 86891 07/16/202406/21, 07/11/2022, 06/26/2021, Additional history exists DTaP,Tdap,and [...] this encounter Medical Devices Implanted Type Area Purler Device Identifier Shelf Expiration Date Model / Serial / Lot Stent [id number] Frank [id number] - [id number] Implanted:Qty: 1 on 01/29/2011 at [place] [facility] [place]: Renal Artery JNJ : CORDIS ENDOVASCULAR 07/21/2012 [id number] / / [id number] Lens Intraoc 18.5 - [id number] - [id number] Implanted:Qty: 1 on 10/16/2018 by Jhonny Stanton MD at OR [facility] Left: Eye BAUSCH & LOMB 02/19/2023 [id number] / [id number] / [id number] Lens Intraoc 18.0 - [id number] - [id number] Implanted:Qty: 1 on 10/28/2018 by Jhonny Stanton MD at OR [facility] Right: Eye BAUSCH & LOMB 11/19/2022 [id number] / [id number] / documented as of this encounter Advance [...] Advance Directives occurred with: Patient Care Teams Education Professor Relationship Specialty Start Date End Date Nessa Foreman MD [address] [facility] [place] [address] PCP - General Internal Medicine 05/11/10 documented as of this encounter
[2024-01-06] MEDS: dilTIAZem HCl 5 MG/ML 5 ML VIAL IV STA ×2 (01:54→02:37)
--- OUTSIDE RECORDS SUMMARY | 2024-01-06 01:54 | External Medical Summary | Summary of Care ---
Author Name Unknown Organization [facility] Address [address] [place] [address] Phone [phone] Care Team Providers Care Biomass Production Manager Name Role Phone Nessa Foreman MD Primary Care Provider + Reason for Visit * Reason Onset Date Comments Appointment 08/23/2023 recall Encounter Details Date Type Department Care Team (Late st Contact Info) Description 08/23/2023 Telephone Vascular Surg [facility] [address] [place] [address] Sergei Frost MD [address] [place] [address] Appointment (recall) Allergies Active Allergy Reactions Criticality Noted Date Comments Allopurinol Low 01/20/2007 Rash Sulfamethoxazole-Trimethopri m 10/06/2015 Hallucinations, anxiety Penicillins 12/24/2000 hives documented as of this encounter (statuses as of 08/23/2023) Medications Medication Sig Dispensed Refills Start Date End Date Status VITAMIN D 2000 UNITS PO CAPS 1 CAPSULE DAILY 30 Cap 5 11/29/2011 Active ASPIRIN EC 81 MG PO TBECIndications:blo od flow Take 1 Tablet by mouth daily. 0 Active Blood Glucose Monitoring Suppl ([employer] ULTRA SYSTEM) W/DEVICE KITIndications:DM type 2, goal A1c below 7 Use up to four times a day as directed/E11.9 1 Kit 0 02/04/2015 Active Spero TherapeuticsUCH DELICA LANCETS 33G MISCIndications:Typ e 2 diabetes mellitus with hemoglobin A1c goal of less than 7.0% (HCC) Test up to twice daily DX E 11.9 100 Each 5 09/16/2018 Active Acetaminophen 500 MG Oral TabletIndications:h eadache Take 1 Tablet by mouth every 6 hours as needed for Pain. 2 tabs as needed 0 Active Omeprazole 20 MG Oral Capsule Delayed [...] only., Indications: water pill, Reported on 12/03/2022 DrDoctor Ultra In Vitro Strip (Glucose Blood)Indications:T ype 2 diabetes mellitus with hemoglobin A1c goal of less than 7.0% (HCC) USE 1 STRIP TO CHECK GLUCOSE ONCE TO TWICE DAILY DIRECTED 200 Strip 3 01/24/2022 Active ProAir HFA 108 (90 Base) MCG/ACT Inhalation Aerosol SolutionIndications :Wheezing Inhale 2 Puffs by mouth every 4 hours as needed for Wheezing. 18 g 3 04/07/2022 Active DrDoctor Verio w/Device Kit Use as directed . 1 Kit 1 04/18/2022 Active DrDoctor UltraSoft Lancets Use as directed 4 times [...] 30-59 ml/min) ([facility]) Take 1 Tablet by mouth in the morning. As needed for gout. 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 14 Tablet 0 07/20/2023 Active Metoprolol Succinate ER 25 MG Oral [...] On Sundays 9 mL 3 08/15/2023 Active metFORMIN HCl ER 500 MG Oral Tablet Extended Release 24 Hour (Glucophage XR)Indications:Type 2 diabetes mellitus with stage 3b chronic kidney disease, without long-term current use of insulin (HCC),Type 2 diabetes mellitus with hemoglobin A1c goal of less than 7.0% ([facility]) Take 1 Tablet by mouth 2 times a day with morning and evening meals. 180 Tablet 3 08/23/2023 Active documented as of this encounter (statuses as of 08/23/2023) Active Problems Problem Noted Date Diagnosed Date [...] stage 02/24/2020 ATILIO (generalized anxiety disorder) 02/24/2020 Morbid obesity with BMI of 45.0-49.9, adult 08/20 Overview: Per Obesity protocol #1 - - Advanced directives, counseling/discussion 08/25 Gastroesophageal reflux disease [...] as of this encounter (statuses as of 08/23/2023) Resolved Problems Problem Noted Date Diagnosed Date Resolved Date Endometrial cancer 07/19/2022 Cancer Staging:Pathologic stage from 11/27/2016:FIGO Stage IA(pT1a, pN0, cM0) - Signed by Ronald Oliver MD on 07/20/2022 Overview: History 12/19/20 NET MANAGER/Onc note "REBECA" ADVANCE DIRECTIVE INFORMATION 10/08/2016 01/10/2017 Overview: No, Advance Directive brochure offered , patient declined. [employer] Other*[id number] 06/19/2010 05/29/2016 Overview: Study Titile: Genomics Markers for Patients with Cardiovascular Disease Project # [id number] PI: Tara Purcell MD Please call [phone] with study related questions Hand Dermatitis 09/24/2007 01/10/2017 Gout 09/09/2006 10/17/2009 Dermatitis 02/07/2005 09/24/2007 Dyslipidemia, goal to be determined 05/08/2004 04/06/2009 Overview: Per Lipid Taxonomy. Vascular complications of renal artery 06/25/2002 01/10/2017 documented as of this encounter (statuses as of 08/23/2023) Immunizations Name Administration Dates Next Due COVID-19 [...] Inj 04/28/2014,01/27/2013,02/19/2012,01/03,01/11/2010,02/27/2008,02/17/2007 ,02/22/2006 TD, Preservative Free 02/10/2018 TDAP (age 11 and older)(Adacel) 01/01/2008 Varicella Zoster Vaccine (Adult) 12/03/2011 documented [...] encounter Miscellaneous Notes * Telephone Encounter - Cary García OSA - 08/23/2023 11:24 AM EDT -F/U in 1 year at [facility], or sooner prn. Will need repeat renal duplex completed at [facility] 1 week prior to clinic visit. (Santosh november 2023) Called and left a message for patient to schedule her year follow up rr documented in this encounter Plan of Treatment Upcoming Encounters Date Type Department Care Team (Latest Contact Info) Description 09/12/2023 8:15 AM EDT Office Visit Orthopaedics [facility] [address] [place] [address] Omer Hammond, DO [address] [place] [address] 09/20/2023 9:40 AM EDT Telemedicine Pharmacy, [facility] [address] [facility] [place] [address] Pharmacist1, [facility] [address] [facility] [place] [address] 10/09/2023 1:45 PM EDT Hospital Encounter OR [facility], Operating Room [facility] [address] [place] [phone] James Crain, DO [address] [place] [phone] 10/09/2023 1:45 PM EDT - 10/09/2023 2:10 PM EDT Surgery OR [facility], Operating Room [facility] [address] [place] [phone] James Crain, DO [address] [place] [phone] INJECTION SACROILIAC JOINT 01/07/2024 2:30 PM EDT Office Visit Cardiology, [facility] [address] [place] [address] Jerry Cano O, DO [address] [place] [address] 02/18/2024 3:00 PM EDT Office Visit General Internal Medicine [facility] [address] [facility] [place] [address] Nessa Foreman MD [address] [facility] [place] [address] Scheduled Procedures Name Priority Associated Diagnoses Date/Ti me INJECTION SACROILIAC JOINT Inflammation of sacroiliac joint (HCC) 10/09/2023 1:45 PM EDT ROBOTIC ARTHROPLASTY KNEE TOTAL [...] Additional history exists CKD HGB USE SMARTSET 33900 11/15/202311/14, 11/14/2022, 07/11/2022, Additional history exists GFR 01/17/2024 07/17/2023, 10/21, 03/19/2022, Additional history exists HbA1c 01/17/2024 07/17/2023, 10/21, 07/11/2022, Additional history exists Diabetic Foot Exam 01/30/2024 01/29/2023, 1 05/21/2020, 02/24/2020, Additional history exists CKD PHOS USE SMARTSET 30956 07/16/202406/21, 07/11/2022, 06/26/2021, Additional history exists DTaP,Tdap,and [...] this encounter Medical Devices Implanted Type Area Nursing Scheduler Device Identifier Shelf Expiration Date Model / Serial / Lot Stent [id number] Frank [id number] - [id number] [place]ed:Q[place] 1 [place] [facility] [place] Renal Artery JNJ : CORDIS ENDOVASCULAR 07/21/2012 [id number] / / [id number] Lens Intraoc 18.5 - [id number] - [id number] Implanted:Qty: 1 on 10/16/2018 by Jhonny Stanton MD at OR [facility] Left: Eye BAUSCH & LOMB 02/19/2023 [id number] / [id number] / [id number] Lens Intraoc 18.0 - [id number] - [id number] Implanted:Qty: 1 on 10/28/2018 by Jhonny Stanton MD at OR [facility] Right: Eye BAUSCH & LOMB 11/19/2022 [id number] / [id number] / documented as of this encounter Advance Directives Latest Code Status on File Code Status Date Activated Date Inactivated Comments Full Code 11/27/2016 11:13 AM 11/27/2016 6:30 PM This o rder reflects the patients wishes and were consensually agreed upon. Code Status History Code Status Date Activated Date Inactivated Comments Full Code 11/27/2016 6:00 AM 11/27/2016 11:13 AM This o rder reflects the patients wishes and were consensually agreed upon. Full Code 01/29/2011 11:40 AM 02/01/2011 6:13 PM Th is order reflects the patients wishes and were consensually agreed upon. Question Answer Comments Discussion of Advance Directives occurred with: Patient Care Teams Biomass Production Manager Relationship Specialty Start Date End Date Nessa Foreman MD [address] [facility] [place] [address] PCP - General Internal Medicine 05/11/10 documented as of this encounter
--- OUTSIDE RECORDS SUMMARY | 2024-01-06 01:54 | External Medical Summary | Summary of Care ---
Author Name Unknown Organization [facility] Address [address] [facility] [place] [address] Phone [phone] Care Team Providers Care Manager Park Name Role Phone Nessa Foreman MD Primary Care Provider + Reason for Referral * Medication Prior Authorization - Closed Specialty Diagnoses / Procedures Referred By Contac t Referred To Contact Diagnoses Type 2 diabetes mellitus with hemoglobin A1c goal of less than 7.0% ([facility]) Margot Sanchez, [facility] [address] [place] [address] Referral ID Status Reason Start Date Expiration Date Visits Re quested Visits Authorized [id number] Closed 999 999 Reason for Visit * Reason Onset Date Comments Medication Question 08/15/2023 Encounter Details Date Type Department Care Team (Late st Contact Info) Description 08/15/2023 Telephone General Internal Medicine [facility] [address] [place] [address] Nessa Foreman MD [address] [facility] [place] [address] Medication Question Allergies Active Allergy Reactions Criticality Noted Date Comments Allopurinol Low 01/20/2007 Rash Sulfamethoxazole-Trimethopri m 10/06/2015 Hallucinations, anxiety Penicillins 12/24/2000 hives documented as of this encounter (statuses as of 08/15/2023) Medications Medication Sig Dispensed Refills Start Date End Date Status VITAMIN D 2000 UNITS PO CAPS 1 CAPSULE DAILY 30 Cap 5 2 Active ASPIRIN EC 81 MG PO TBECIndications:bl ood flow Take 1 Tablet by mouth daily. 0 Active Blood Glucose Monitoring Suppl ([employer] ULTRA SYSTEM) W/DEVICE KITIndications:DM type 2, goal [...] on 07/25/2023 Furosemide 20 MG Oral Tablet (Lasix)Indications :HTN, goal below 140/90 Take by mouth 4 Tablets in the morning. 360 Tablet 3 2 Active Additional Information Patient taking differently:80 mg Oral Daily(AM),Taking 40mg daily only., Indications: water pill, Reported on 12/03/2022 Lockr In Vitro Strip (Glucose Blood)Indications: Type 2 [...] directed . 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 14 Tablet 0 4 Active Metoprolol Succinate ER 25 MG [...] On Sundays 9 mL 3 4 Active Ozempic (1 MG/DOSE) 2 MG/1.5ML Subcutaneous Solution Pen-injector (Semaglutide (1 MG/DOSE))Indicatio ns:Type 2 diabetes mellitus with hemoglobin A1c goal of less than 7.0% (HCC) Inject 1 mg under the skin once a week. 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 [employer] Other*[id number] 06/19/2010 05/29/2016 Overview: Study Titile: [employer] Markers for Patients with Cardiovascular Disease Project # [id number] PI: Tara Purcell MD Please call [phone] with study related questions Hand Dermatitis 09/24/2007 01/10/2017 Gout 09/09/2006 10/17/2009 Dermatitis 02/07/2005 09/24/2007 Dyslipidemia, goal to be determined 05/08/2004 04/06/2009 Overview: Per Lipid Taxonomy. Vascular complications of renal artery 06/25/2002 01/10/2017 documented as of this encounter (statuses as of 08/15/2023) Immunizations Name Administration Dates Next Due COVID-19 [...] encounter Miscellaneous Notes * Telephone Encounter - Margot Sanchez RP - 08/15/2023 10:07 AM EDT Sent updated script. Thanks, Margot Sanchez [facility] Clinical Pharmacist [facility] ([facility]) (Formerly Telepharmacy) [phone] Pending Prescriptions: Disp Refills Ozempic (1 MG/DOSE) 4 MG/3ML Subcutaneous*9 mL 3 Sig: Inject 1 mg under the skin once a week. On Sundays * Telephone Encounter - Wellington Lee chiropractic assistant - 08/15/2023 9:57 AM EDT Alanna needs new up to date script for Ozempic 3 ml pen. Please send ERICK for fill while supplies last. Thank You, Wellington Lee [facility] Kitchen Operator II [facility] (Formerly Telepharmacy) 08/15/2023, 9:57 AM documented in this encounter Plan of Treatment Upcoming Encounters Date Type Department Care Team (Latest Contact Info) Description 10/09/2023 1:45 PM EDT Hospital Encounter [facility], Operating Room [facility] [address] [place] [phone] James Crain, [address] [place] [phone] 10/09/2023 1:45 PM EDT - 10/09/2023 2:10 PM EDT Surgery OR [facility], Operating Room [facility] [address] [place] [phone] James Crain, DO [address] [place] [phone] INJECTION SACROILIAC JOINT 01/07/2024 2:30 PM EDT Office Visit Cardiology, [facility] [address] [place] [address] Jerry Cano, DO [address] [place] [address] 02/18/2024 3:00 PM EDT Office Visit General Internal Medicine [facility] [address] [facility] [place] [address] Nessa Foreman MD [address] [facility] [place] [address] Scheduled Procedures Name Priority Associated Diagnoses Date/Ti [...] Additional history exists CKD HGB USE SMARTSET 16608 11/15/202311/14, 11/14/2022, 07/11/2022, Additional history exists GFR 01/17/2024 07/17/2023, 10/21, 03/19/2022, Additional history exists HbA1c 01/17/2024 07/17/2023, 10/21, 07/11/2022, Additional history exists Diabetic Foot Exam 01/30/2024 01/29/2023, 1 05/21/2020, 02/24/2020, Additional history exists CKD PHOS USE SMARTSET 52600 07/16/202406/21, 07/11/2022, 06/26/2021, Additional history exists DTaP,Tdap,and [...] this encounter Medical Devices Implanted Type Area Sweatband Decorating Machine Operator Device Identifier Shelf Expiration Date Model / Serial / Lot Stent [id number] Frank [id number] - [id number] Implanted:Qty: 1 on 01/29/2011 [place] [facility] [place] Renal Artery JNJ : CORDIS ENDOVASCULAR 07/21/2012 [id number] / / [id number] Lens Intraoc 18.5 - [id number] - [id number] Implanted:Qty: 1 on 10/16/2018 by Jhonny Stanton MD at [facility] Left: Eye BAUSCH & LOMB 02/19/2023 [id number] / [id number] / [id number] Lens Intraoc 18.0 - [id number] - [id number] Implanted:Qty: 1 on 10/28/2018 by Jhonny Stanton MD at OR [facility] Right: Eye BAUSCH & LOMB 11/19/2022 [id number] / [id number] / documented as of this encounter Visit Diagnoses Diagnosis Type 2 diabetes mellitus with hemoglobin A1c goal of less than 7.0% (HCC)- Primary Inflammation of sacroiliac joint (HCC) Sacroiliitis, not elsewhere classified documented in this encounter Advance Directives Latest Code Status [...] Directives occurred with: Patient Care Teams Manager Park Relationship Specialty Start Date End Date Nessa Foreman MD [address] [place] [address] PCP - General Internal Medicine 05/11/10 documented as of this encounter
--- OUTSIDE RECORDS SUMMARY | 2024-01-06 01:54 | External Medical Summary | Summary of Care ---
Author Name Unknown Organization [facility] Address [address] [facility] [place] [address] Phone [phone] Care Team Providers Care Communications Billing Analyst Name Role Phone Nessa Foreman MD Primary Care Provider + Encounter Details Date Type Department Care Team (Late st Contact Info) Description 08/17/2023 Patient Reported Data Patient Survey Ortho [facility] Allergies Active Allergy Reactions Criticality Noted Date Comments Allopurinol Low 01/20/2007 Rash Sulfamethoxazole-Trimethopri m 10/06/2015 Hallucinations, anxiety Penicillins 12/24/2000 hives documented as of this encounter (statuses as of 08/17/2023) Medications Medication Sig Dispensed Refills Start Date End Date Status VITAMIN D 2000 UNITS PO CAPS 1 CAPSULE DAILY 30 Cap 5 11/29/2011 Active ASPIRIN EC 81 MG PO TBECIndications:blo od flow Take 1 Tablet by mouth daily. 0 Active Blood Glucose Monitoring Suppl (ONETOUCH ULTRA [...] only., Indications: water pill, Reported on 12/03/2022 Revolightsuch Ultra In Vitro Strip (Glucose Blood)Indications:T ype 2 diabetes mellitus with hemoglobin A1c goal of less than 7.0% ([facility]) USE 1 STRIP TO CHECK GLUCOSE ONCE TO TWICE DAILY DIRECTED 200 Strip 3 01/24/2022 Active ProAir HFA 108 (90 Base) MCG/ACT Inhalation Aerosol SolutionIndications :Wheezing Inhale 2 Puffs by mouth every 4 hours as needed for Wheezing. 18 g 3 04/07/2022 Active S² DevelopmentTouch Verio w/Device Kit Use as directed . 1 Kit 1 04/18/2022 Active S² DevelopmentTouch UltraSoft Lancets Use as directed 4 times [...] disease, chronic, stage III (GFR 30-59 ml/min) ([facility]) Take 1 Tablet by mouth in the morning. As needed for gout. 30 Tablet 1 12/13/2022 Active Calcitriol 0.25 MCG Oral Capsule (Rocaltrol)Indicati ons:CKD (chronic kidney disease) stage 3, GFR 30-59 ml/min ([facility]) TAKE 1 CAPSULE BY MOUTH ONCE DAILY [...] hemoglobin A1c goal of less than 7.0% ([facility]) Inject 1 mg under the skin once a week. On Sundays 9 mL 3 08/15/2023 Active documented as of this encounter (statuses as of 08/17/2023) Active Problems Problem Noted Date Diagnosed Date [...] as of this encounter (statuses as of 08/17/2023) Resolved Problems Problem Noted Date Diagnosed Date Resolved Date Endometrial cancer 07/19/2022 Cancer Staging:Pathologic stage from 11/27/2016:FIGO Stage IA(pT1a, pN0, cM0) - Signed by Ronald Oliver MD on 07/20/2022 Overview: History 12/19/20 DONKEY ENGINE FIRER/FIREMAN/Onc note "REBECA" ADVANCE DIRECTIVE INFORMATION 10/08/2016 01/10/2017 Overview: No, Advance Directive brochure offered , patient declined. [employer] Other*[id number] 06/19/2010 05/29/2016 Overview: Study Titile: [employer] Markers for Patients with Cardiovascular Disease Project # [id number] PI: Tara Purcell MD Please call [phone] with study related questions Hand Dermatitis 09/24/2007 01/10/2017 Gout 09/09/2006 10/17/2009 Dermatitis 02/07/2005 09/24/2007 Dyslipidemia, goal to be determined 05/08/2004 04/06/2009 Overview: Per Lipid Taxonomy. Vascular complications of renal artery 06/25/2002 01/10/2017 documented as of this encounter (statuses as of 08/17/2023) Immunizations Name Administration Dates Next Due COVID-19 [...] 09/12/2023 8:15 AM EDT Office Visit Orthopaedics [facility] [address] [place] [address] Omer Hammond, DO [address] [place] [address] 10/09/2023 1:45 PM EDT Hospital Encounter OR [facility], Operating Room [facility] [address] [place] [phone] James Crain, DO [address] [place] [phone] 10/09/2023 1:45 PM EDT - 10/09/2023 2:10 PM EDT Surgery OR [facility], Operating Room [facility] [address] [place] [phone] James Crain, DO [address] [place] [phone] INJECTION SACROILIAC JOINT 01/07/2024 2:30 PM EDT Office Visit Cardiology, [facility] [address] [place] [address] Jerry Cano, DO [address] [place] [address] 02/18/2024 3:00 PM EDT Office Visit General Internal Medicine [facility] [address] [facility] [place] [address] Nessa Foreman MD [address] [facility] [place] [address] Scheduled Procedures Name Priority Associated Diagnoses Date/Ti [...] Additional history exists CKD HGB USE SMARTSET 78791 11/15/202311/14, 11/14/2022, 07/11/2022, Additional history exists GFR 01/17/2024 07/17/2023, 10/21, 03/19/2022, Additional history exists HbA1c 01/17/2024 07/17/2023, 10/21, 07/11/2022, Additional history exists Diabetic Foot Exam 01/30/2024 01/29/2023, 1 05/21/2020, 02/24/2020, Additional history exists CKD PHOS USE SMARTSET 52547 07/16/202406/21, 07/11/2022, 06/26/2021, Additional history exists DTaP,Tdap,and [...] this encounter Medical Devices Implanted Type Area Alignment Mechanic Device Identifier Shelf Expiration Date Model / Serial / Lot Stent [id number] Frank [id number] - [id number] [place]planted:Q[place] 1 [place] [facility] [place] JNJ : CORDIS ENDOVASCULAR 07/21/2012 [id number] / / [id number] Lens Intraoc 18.5 - [id number] - [id number] Implanted:Qty: 1 on 10/16/2018 by Jhonny Stanton MD at OR [facility] Left: Eye BAUSCH & LOMB 02/19/2023 [id number] / [id number] / [id number] Lens Intraoc 18.0 - [id number] - [id number] Implanted:Qty: 1 on 10/28/2018 by Jhonny Stanton MD at OR [facility] Right: Eye BAUSCH & LOMB 11/19/2022 [id number] / [id number] / documented as of this encounter Advance [...] Advance Directives occurred with: Patient Care Teams Communications Billing Analyst Relationship Specialty Start Date End Date Nessa Foreman MD [address] [place] [address] PCP - General Internal Medicine 05/11/10 documented as of this encounter
--- OUTSIDE RECORDS SUMMARY | 2024-01-06 01:54 | External Medical Summary | Summary of Care ---
Author Name Unknown Organization [facility] Address [address] [facility] [place] [address] Phone [phone] Care Team Providers Care Kapok And Cotton Machine Operator Name Role Phone Nessa Foreman MD [...] only., Indications: water pill, Reported on 12/03/2022 [employer]uch Ultra In Vitro Strip (Glucose Blood)Indications:T ype 2 diabetes mellitus with hemoglobin A1c goal of less than 7.0% ([facility]) USE 1 STRIP TO CHECK GLUCOSE ONCE TO TWICE DAILY DIRECTED 200 Strip 3 01/24/2022 Active ProAir HFA 108 (90 Base) MCG/ACT Inhalation Aerosol SolutionIndications :Wheezing Inhale 2 Puffs by mouth every 4 hours as needed for Wheezing. 18 g 3 04/07/2022 Active SmadexTouch Verio w/Device Kit Use as directed . 1 Kit 1 04/18/2022 Active SmadexTouch UltraSoft Lancets Use as directed 4 times [...] disease, chronic, stage III (GFR 30-59 ml/min) ([facility]) Take 1 Tablet by mouth in the morning. As needed for gout. 30 Tablet 1 12/13/2022 Active Calcitriol 0.25 MCG Oral Capsule (Rocaltrol)Indicati ons:CKD (chronic kidney disease) stage 3, GFR 30-59 ml/min ([facility]) TAKE 1 CAPSULE BY MOUTH [...] hemoglobin A1c goal of less than 7.0% ([facility]) Inject 1 mg under the [...] Oliver MD on 07/20/2022 Overview: History 12/19/20 DIE GRINDER/Onc note "REBECA" ADVANCE DIRECTIVE INFORMATION 10/08/2016 01/10/2017 Overview: No, Advance Directive brochure offered , patient declined. [employer] Other*[id number] 06/19/2010 05/29/2016 Overview: Study Titile: Genomics Markers for Patients with Cardiovascular Disease Project # [id number] PI: Tara Purcell MD Please call [phone] with study related questions Hand Dermatitis 09/24/2007 [...] 09/12/2023 8:15 AM EDT Office Visit Orthopaedics [facility] [address] [place] [address] Omer Hammond, DO [address] [place] [address] 10/09/2023 1:45 PM EDT Hospital Encounter [facility], Operating Room [facility] [address] [place] [phone] James Crain, DO [address] [place] [phone] 10/09/2023 1:45 PM EDT - 10/09/2023 2:10 PM EDT Surgery [facility], Operating Room [facility] [address] [place] [phone] James Crain, DO [address] [place] [phone] INJECTION SACROILIAC JOINT 01/07/2024 2:30 PM EDT Office Visit Cardiology, [facility] [address] [place] [address] Jerry Cano, DO [address] [place] [address] 02/18/2024 3:00 PM EDT Office Visit General Internal Medicine [facility] 200 [facility] [place] [address] Nessa Foreman MD 200 [facility] [place] [address] Scheduled Procedures Name Priority Associated Diagnoses Date/Ti [...] Additional history exists CKD HGB USE SMARTSET 82625 11/15/202311/14, 11/14/2022, 07/11/2022, Additional history exists GFR 01/17/2024 07/17/2023, 10/21, 03/19/2022, Additional history exists HbA1c 01/17/2024 07/17/2023, 10/21, 07/11/2022, Additional history exists Diabetic Foot Exam 01/30/2024 01/29/2023, 1 05/21/2020, 02/24/2020, Additional history exists CKD PHOS USE SMARTSET 13413 07/16/202406/21, 07/11/2022, 06/26/2021, Additional history exists DTaP,Tdap,and [...] this encounter Medical Devices Implanted Type Area Steelworker Device Identifier Shelf Expiration Date Model / Serial / Lot Stent [id number] Frank [id number] - [id number] Implanted:Qty: 1 on 01/29/2011 at [place] [facility] [place] Right: Renal Artery JNJ : CORDIS ENDOVASCULAR 07/21/2012 [id number] / / [id number] Lens Intraoc 18.5 - [id number] - [id number] Implanted:Qty: 1 on 10/16/2018 by Jhonny Stanton MD at OR [facility] Left: Eye BAUSCH & LOMB 02/19/2023 [id number] / [id number] / [id number] Lens Intraoc 18.0 - [id number] - [id number] Implanted:Qty: 1 on 10/28/2018 by Jhonny Stanton MD at OR [facility] Right: Eye BAUSCH & LOMB 11/19/2022 [id number] / [id number] / documented as of this encounter Advance [...] Advance Directives occurred with: Patient Care Teams Kapok And Cotton Machine Operator Relationship Specialty Start Date End Date Nessa Foreman MD 200 [place] [address] PCP - General Internal Medicine 05/11/10 documented as of this encounter
--- OUTSIDE RECORDS SUMMARY | 2024-01-06 01:54 | External Medical Summary | Summary of Care ---
Author Name Unknown Organization [facility] Address [address] [facility] [place] [address] Phone [phone] Care Team Providers Care Flatwork Feeder Name Role Phone Nessa Foreman MD Primary Care Provider + Reason for Visit * Reason Comments eRx-Medication Refill Encounter Details Date Type Department Care Team (Late st Contact Info) Description 09/04/2023 Refill General Internal Medicine [facility] [address] [place] [address] Nessa Foreman MD 200 [place] [address] Allergies Active Allergy Reactions Criticality Noted Date Comments Allopurinol Low 01/20/2007 Rash Sulfamethoxazole-Trimethopri m 10/06/2015 Hallucinations, anxiety Penicillins 12/24/2000 hives documented as of this encounter (statuses as of 09/05/2023) Medications Medication Sig Dispensed Refills Start Date End Date Status VITAMIN D 2000 UNITS PO CAPS 1 CAPSULE DAILY 30 Cap 5 2 Active ASPIRIN EC 81 MG PO TBECIndications:b lood flow Take 1 Tablet by mouth daily. 0 Active Blood Glucose Monitoring Suppl (Siftit[employer]CH ULTRA SYSTEM) W/DEVICE KITIndications:DM type 2, goal [...] only., Indications: water pill, Reported on 12/03/2022 Voltari Ultra In Vitro Strip (Glucose Blood)Indications :Type 2 diabetes mellitus with hemoglobin A1c goal of less than 7.0% ([facility]) USE 1 STRIP TO CHECK GLUCOSE ONCE TO TWICE DAILY DIRECTED 200 Strip 3 2 Active ProAir HFA 108 (90 Base) MCG/ACT Inhalation Aerosol SolutionIndicatio ns:Wheezing Inhale 2 Puffs by mouth every 4 hours as needed for Wheezing. 18 g 3 2 Active Voltari Verio w/Device Kit Use as directed . 1 Kit 1 2 Active [employer]uch UltraSoft Lancets Use as directed 4 times [...] III (GFR 30-59 ml/min) ([facility]) Take 1 Tablet by mouth in the morning. As needed for gout. 30 Tablet 1 3 Active Calcitriol 0.25 MCG Oral Capsule (Rocaltrol)Indica tions:CKD (chronic kidney disease) stage 3, GFR 30-59 ml/min ([facility]) TAKE 1 CAPSULE BY MOUTH [...] On Sundays 9 mL 3 4 Active metFORMIN HCl ER 500 MG Oral Tablet Extended Release 24 Hour (Glucophage XR)Indications:Ty pe 2 diabetes mellitus with stage 3b chronic kidney disease, without long-term current use of insulin ([facility]),Type 2 diabetes mellitus with hemoglobin A1c goal of less than 7.0% ([facility]) Take 1 Tablet by mouth 2 times a day with morning and evening meals. 180 Tablet 3 4 Active traMADol HCl 50 MG Oral Tablet (Ultram)Indicatio ns:Spinal stenosis of lumbar region without neurogenic claudication Take 1 Tablet by mouth every 6 hours as needed for Pain, Severe. 14 Tablet 0 4 Active LORazepam 0.5 MG Oral Tablet (Ativan) TAKE 1 TABLET BY MOUTH THREE TIMES DAILY NEEDED FOR ANXIETY 90 Tablet 0 4 Active LORazepam 0.5 MG Oral Tablet (Ativan) TAKE 1 TABLET BY MOUTH THREE TIMES DAILY NEEDED FOR ANXIETY 90 Tablet 0 4 09/05/19 24 Discontinued documented as of this encounter (statuses as of 09/05/2023) Active Problems Problem Noted Date Diagnosed Date [...] as of this encounter (statuses as of 09/05/2023) Resolved Problems Problem Noted Date Diagnosed Date Resolved Date Endometrial cancer 07/19/2022 Cancer Staging:Pathologic stage from 11/27/2016:FIGO Stage IA(pT1a, pN0, cM0) - Signed by Ronald Oliver MD on 07/20/2022 Overview: History 12/19/20 COMMUNITY LEADER/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 [employer] Other*[id number] 06/19/2010 05/29/2016 Overview: Study Titile: Genomics Markers for Patients with Cardiovascular Disease Project # [id number] PI: Tara Purcell MD Please call [phone] with study related questions Hand Dermatitis 09/24/2007 01/10/2017 Gout 09/09/2006 10/17/2009 Dermatitis 02/07/2005 09/24/2007 Dyslipidemia, goal to be determined 05/08/2004 04/06/2009 Overview: Per Lipid Taxonomy. Vascular complications of renal artery 06/25/2002 01/10/2017 documented as of this encounter (statuses as of 09/05/2023) Immunizations Name Administration Dates Next Due COVID-19 [...] Miscellaneous Notes * Telephone Encounter - Nessa Foerman MD - 09/05/2023 4:12 PM EDTSigned Prescriptions: Disp Refills LORazepam 0.5 MG Oral Tablet (Ativan) 90 Tab*0 Sig: TAKE 1 TABLET BY MOUTH THREE TIMES DAILY NEEDED FOR ANXIETY Authorizing Provider: NESSA FOREMAN * Telephone Encounter - Srinivas Luevano [facility] - 09/05/2023 4:11 PM EDTPending Prescriptions: Disp Refills LORazepam 0.5 MG Oral Tablet 90 Tab*0 Sig: TAKE 1 TABLET BY MOUTH THREE TIMES DAILY NEEDED FOR ANXIETY * Telephone Encounter - Srinivas Luevano [facility] - 09/05/2023 4:10 PM EDT I have reviewed the patients controlled substance dispensing history in the Prescription Drug Monitoring Program in compliance with the [facility] regulations before prescribing a controlled substance. PDMP checked on 09/05/2023. Pending Prescriptions: Disp Refills LORazepam 0.5 MG Oral Tablet (Ativan) [Ph*90 Tab*0 Sig: TAKE 1 TABLET BY MOUTH THREE TIMES DAILY NEEDED FOR ANXIETY Last Visit: 08/13/2023 (in office), Visit date not found (telemedicine) Next Visit: 02/18/2024 Date medication was last filled: 06-13-23 Date medication is due for refill: 07-12-23 [facility]: [facility] Is this request for a controlled substance? Yes and Urine Drug Screen Not completed Toxicology results: No results found. However, due to the size of the patient record, not all encounters were searched.Please check Results Review for a complete set of results. Please approve if appropriate. Thanks, Srinivas Luevano, [employer].Ph. Clinical Pharmacist [facility] [phone] ext [phone] 09/05/2023,4:10 PM documented in this encounter Plan of Treatment Upcoming Encounters Date Type Department Care Team (Latest Contact Info) Description 09/12/2023 8:15 AM EDT Office Visit Orthopaedics [facility] [address] [place] [address] Omer Hammond, DO [address] [place] [address] 09/20/2023 9:40 AM EDT Telemedicine Pharmacy, [facility] [address] Pharmacist1, [facility] [address] [facility] [place] [address] 10/09/2023 1:45 PM EDT Hospital Encounter OR [facility], Operating Room [facility] [address] [place] [phone] James Crain, [address] [place] [phone] 10/09/2023 1:45 PM EDT - 10/09/2023 2:10 PM EDT Surgery OR [facility], Operating Room [facility] [address] [place] [phone] James Crain, DO [address] [place] [address] INJECTION SACROILIAC JOINT 12/03/2023 9:00 AM EDT Imaging Vascular Lab, [facility] 2nd [facility] [address] [place] [address] 12/11/2023 11:50 AM EDT Office Visit Vascular Surgery, [facility] [address] [place] [address] Sergei Frost MD [address] [place] [address] 01/07/2024 2:30 PM EDT Office Visit Cardiology, [facility] 132 [facility] [place] [address] Jerry Cano O, DO 132 [facility] [place] [address] 02/18/2024 3:00 PM EDT Office Visit General Internal Medicine [facility] 200 [facility] [place] [address] Nessa Foreman MD 200 [facility] [place] [address] Scheduled Procedures Name Priority Associated Diagnoses Date/Ti [...] Additional history exists CKD HGB USE SMARTSET 13851 11/15/202311/14, 11/14/2022, 07/11/2022, Additional history exists GFR 01/17/2024 07/17/2023, 10/21, 03/19/2022, Additional history exists HbA1c 01/17/2024 07/17/2023, 10/21, 07/11/2022, Additional history exists Diabetic Foot Exam 01/30/2024 01/29/2023, 1 05/21/2020, 02/24/2020, Additional history exists CKD PHOS USE SMARTSET 56439 07/16/202406/21, 07/11/2022, 06/26/2021, Additional history exists DTaP,Tdap,and [...] encounter Medical Devices Implanted Type Area Director Of Blood Device Identifier Shelf Expiration Date Model / Serial / Lot Stent [id number] Frank [id number] - [id number] Implanted:Qty: 1 on 01/29/2011 [place] [facility] [place]: Renal Artery JNJ : CORDIS ENDOVASCULAR 07/21/2012 [id number] / / [id number] Lens Intraoc 18.5 - [id number] - [id number] Implanted:Qty: 1 on 10/16/2018 by Jhonny Stanton MD at OR [facility] Left: Eye BAUSCH & LOMB 02/19/2023 [id number] / [id number] / [id number] Lens Intraoc 18.0 - [id number] - [id number] Implanted:Qty: 1 on 10/28/2018 by Jhonny Stanton MD at OR [facility] Right: Eye BAUSCH & LOMB 11/19/2022 [id number] / [id number] / documented as of this encounter Advance [...] Advance Directives occurred with: Patient Care Teams Flatwork Feeder Relationship Specialty Start Date End Date Nessa Foreman MD 200 [place] [address] PCP - General Internal Medicine 05/11/10 documented as of this encounter
--- OUTSIDE RECORDS SUMMARY | 2024-01-06 01:54 | External Medical Summary | Summary of Care ---
Author Name Unknown Organization [facility] Address [address] [facility] [place] [address] Phone [phone] Care Team Providers Care Magnetic Doctor Name Role Phone Nessa Foreman MD Primary Care Provider + Reason for Visit * Reason Comments eRx-Medication Refill Encounter Details Date Type Department Care Team (Late st Contact Info) Description 09/04/2023 Refill General Internal Medicine [facility] 200 [facility] [place] [address] Amalia Jones MD 200 [place] [address] Spinal stenosis of lumbar region without neurogenic [...] daily. 0 Active Blood Glucose Monitoring Suppl (Re[employer] Medical ULTRA SYSTEM) W/DEVICE KITIndications:DM type 2, goal A1c below 7 Use up to four times a day as directed/E11.9 1 Kit 0 02/04/2015 Active Re[employer] Medical DELICA LANCETS 33G MISCIndications:Typ e 2 diabetes [...] only., Indications: water pill, Reported on 12/03/2022 [employer] Ultra In Vitro Strip (Glucose Blood)Indications:T ype 2 diabetes mellitus with hemoglobin A1c goal of less than 7.0% ([facility]CC) USE 1 STRIP TO CHECK GLUCOSE ONCE TO TWICE DAILY DIRECTED 200 Strip 3 01/24/2022 Active ProAir HFA 108 (90 Base) MCG/ACT Inhalation Aerosol SolutionIndications :Wheezing Inhale 2 Puffs by mouth every 4 hours as needed for Wheezing. 18 g 3 04/07/2022 Active [employer] Verio w/Device Kit Use as directed . 1 Kit 1 04/18/2022 Active [employer] UltraSoft Lancets Use as directed 4 times [...] disease, chronic, stage III (GFR 30-59 ml/min) ([facility]) Take 1 Tablet by mouth in the morning. As needed for gout. 30 Tablet 1 12/13/2022 Active Calcitriol 0.25 MCG Oral Capsule (Rocaltrol)Indicati ons:CKD (chronic kidney disease) stage 3, GFR 30-59 ml/min ([facility]) TAKE 1 CAPSULE BY MOUTH [...] hemoglobin A1c goal of less than 7.0% ([facility]) Inject 1 mg under the [...] evening meals. 180 Tablet 3 08/23/2023 Active traMADol HCl 50 MG Oral Tablet (Ultram)Indications :Spinal stenosis of lumbar region without neurogenic claudication Take 1 Tablet by mouth every 6 hours as needed for Pain, Severe. 14 Tablet 0 09/04/2023 Active documented as of this encounter (statuses [...] Oliver MD on 07/20/2022 Overview: History 12/19/20 TUB WASH OPERATOR/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 [employer] Other*[id number] 06/19/2010 05/29/2016 Overview: Study Titile: Genomics Markers for Patients with Cardiovascular Disease Project # [id number] PI: Tara Purcell MD Please call [phone] with study related questions Hand Dermatitis 09/24/2007 [...] encounter Miscellaneous Notes * Telephone Encounter - Shakir Adams [facility] - 09/05/2023 3:25 PM EDTRefused Prescriptions: Disp Refills traMADol HCl 50 MG Oral Tablet (Ultram) 14 Tab*0 Sig: TAKE 1 TABLET BY MOUTH TWICE DAILY NEEDED FOR SEVERE PAINRefused By: SHAKIR ADAMS for Refusal: Duplicate Request documented in this encounter Plan of Treatment Upcoming Encounters Date Type Department Care Team (Latest Contact Info) Description 09/12/2023 8:15 AM EDT Office Visit Orthopaedics [facility] [address] [place] [address] Omer Hammond DO [address] [place] [address] 09/20/2023 9:40 AM EDT Telemedicine Pharmacy, [facility] [address] [place] [address] [address], [facility] [address] [facility] [address] 10/09/2023 1:45 PM EDT Hospital Encounter OR [facility], Operating Room [facility] [address] [place] [phone] James Crain DO [address] [place] [phone] 10/09/2023 1:45 PM EDT - 10/09/2023 2:10 PM EDT Surgery OR [facility], Operating Room [facility] [address] [place] [phone] James Crain DO [address] [place] [phone] INJECTION SACROILIAC JOINT 12/03/2023 9:00 AM EDT [facility] [address] [facility] [place] [address] 12/11/2023 11:50 AM EDT Office Visit Vascular Surgery, [facility] [address] [facility] [place] [address] Sergei Frost MD [address] [place] [address] 01/07/2024 2:30 PM EDT Office Visit Cardiology, [facility] [address] [facility] [place] [address] Jerry Cano O, DO [address] [place] [address] 02/18/2024 3:00 PM EDT Office Visit General Internal Medicine [facility] 200 [facility] [place] [address] Nessa Foreman MD 200 [facility] [place] [address] Scheduled Procedures Name Priority Associated Diagnoses Date/Ti [...] , 06/20/2021, Additional history exists Albumin/Creatinine Ratio 11/15/202311/14/2 023, 11/23/2021, 09/11/2017, Additional history exists CKD HGB USE SMARTSET 24104 11/15/202311/14, 11/14/2022, 07/11/2022, Additional history exists GFR 01/17/2024 07/17/2023, 10/21, 03/19/2022, Additional history exists HbA1c 01/17/2024 07/17/2023, 10/21, 07/11/2022, Additional history exists Diabetic Foot Exam 01/30/2024 01/29/2023, 1 05/21/2020, 02/24/2020, Additional history exists CKD PHOS USE SMARTSET 35248 07/16/202406/21, 07/11/2022, 06/26/2021, Additional history exists DTaP,Tdap,and [...] this encounter Medical Devices Implanted Type Area Travel Counselor Device Identifier Shelf Expiration Date Model / Serial / Lot Stent [id number] Frank [id number] - [id number] Implanted:Qty: 1 on 01/29/[address] [facility] [place] Right: Renal Artery JNJ : CORDIS ENDOVASCULAR 07/21/2012 [id number] / / [id number] Lens Intraoc 18.5 - [id number] - [id number] Implanted:Qty: 1 on 10/16/2018 by Jhonny Stanton MD at OR [facility] Left: Eye BAUSCH & LOMB 02/19/2023 [id number] / [id number] / [id number] Lens Intraoc 18.0 - [id number] - [id number] Implanted:Qty: 1 on 10/28/2018 by Jhonny Stanton MD at OR [facility] Right: Eye BAUSCH & LOMB 11/19/2022 [id number] / [id number] / documented as of this encounter Visit [...] Advance Directives occurred with: Patient Care Teams Magnetic Doctor Relationship Specialty Start Date End Date Nessa Foreman MD 200 [facility] [place], [place] [address] PCP - General Internal Medicine 05/11/10 documented as of this encounter
--- OUTSIDE RECORDS SUMMARY | 2024-01-06 01:54 | External Medical Summary | Summary of Care ---
Author Name Unknown Organization [facility] Address [address] [facility] [address] [address] [place] [address] Phone [phone] Care Team Providers Care Able Seaman Name Role Phone Nessa Foreman MD Primary [...] only., Indications: water pill, Reported on 12/03/2022 Relative.aiuch Ultra In Vitro Strip (Glucose Blood)Indications:T ype 2 diabetes mellitus with hemoglobin A1c goal of less than 7.0% ([facility]) USE 1 STRIP TO CHECK GLUCOSE ONCE TO TWICE DAILY DIRECTED 200 Strip 3 01/24/2022 Active ProAir HFA 108 (90 Base) MCG/ACT Inhalation Aerosol SolutionIndications :Wheezing Inhale 2 Puffs by mouth every 4 hours as needed for Wheezing. 18 g 3 04/07/2022 Active BiggerBoatTouch Verio w/Device Kit Use as directed . 1 Kit 1 04/18/2022 Active BiggerBoatTouch UltraSoft Lancets Use as directed 4 times [...] disease, chronic, stage III (GFR 30-59 ml/min) ([facility]) Take 1 Tablet by mouth in the morning. As needed for gout. 30 Tablet 1 12/13/2022 Active Calcitriol 0.25 MCG Oral Capsule (Rocaltrol)Indicati ons:CKD (chronic kidney disease) stage 3, GFR 30-59 ml/min ([facility]) TAKE 1 CAPSULE BY MOUTH [...] hemoglobin A1c goal of less than 7.0% ([facility]) Inject 1 mg under the [...] Oliver MD on 07/20/2022 Overview: History 12/19/20 AIRCRAFT INSTRUMENT REPAIRER/Onc note "REBECA" ADVANCE DIRECTIVE INFORMATION 10/08/2016 01/10/2017 Overview: No, Advance Directive brochure offered , patient declined. [employer] Other*[id number] 06/19/2010 05/29/2016 Overview: Study Titile: Genomics Markers for Patients with Cardiovascular Disease Project # [id number] PI: Tara Purcell MD Please call [phone] with study related questions Hand Dermatitis 09/24/2007 [...] 09/12/2023 8:15 AM EDT Office Visit Orthopaedics [facility] [address] [place] [address] Omer Hammond, DO [address] [place] [address] 10/09/2023 1:45 PM EDT Hospital Encounter [facility], Operating Room [facility] [address] [place] [phone] James Crain, DO [address] [place] [phone] 10/09/2023 1:45 PM EDT - 10/09/2023 2:10 PM EDT Surgery [facility], Operating Room [facility] [address] [place] [phone] James Crain, DO [address] [place] [phone] INJECTION SACROILIAC JOINT 01/07/2024 2:30 PM EDT Office Visit Cardiology, [facility] [address] [place] [address] Jerry Cano, DO [address] [place] [address] 02/18/2024 3:00 PM EDT Office Visit General Internal Medicine [facility] 200 [facility] [place] [address] Nessa Foreman MD 200 [facility] [place] [address] Scheduled Procedures Name Priority Associated Diagnoses Date/Ti [...] Additional history exists CKD HGB USE SMARTSET 42063 11/15/202311/14, 11/14/2022, 07/11/2022, Additional history exists GFR 01/17/2024 07/17/2023, 10/21, 03/19/2022, Additional history exists HbA1c 01/17/2024 07/17/2023, 10/21, 07/11/2022, Additional history exists Diabetic Foot Exam 01/30/2024 01/29/2023, 1 05/21/2020, 02/24/2020, Additional history exists CKD PHOS USE SMARTSET 26521 07/16/202406/21, 07/11/2022, 06/26/2021, Additional history exists DTaP,Tdap,and [...] this encounter Medical Devices Implanted Type Area Mold Repairer Device Identifier Shelf Expiration Date Model / Serial / Lot Stent [id number] Frank [id number] - [id number] Implanted:Qty: 1 on 01/29/2011 at OR [facility] Right: Renal Artery JNJ : CORDIS ENDOVASCULAR 07/21/2012 [id number] / / [id number] Lens Intraoc 18.5 - [id number] - [id number] Implanted:Qty: 1 on 10/16/2018 by Jhonny Stanton MD at OR [facility] Left: Eye BAUSCH & LOMB 02/19/2023 [id number] / [id number] Lens Intraoc 18.0 - [id number] - [id number] Implanted:Qty: 1 on 10/28/2018 by Jhonny Stanton MD at OR [facility] Right: Eye BAUSCH & LOMB 11/19/2022 [id number] / [id number] / documented as of this encounter Advance [...] Advance Directives occurred with: Patient Care Teams Able Seaman Relationship Specialty Start Date End Date Nessa Foreman MD [address] [place] [address] PCP - General Internal Medicine 05/11/10 documented as of this encounter
--- OUTSIDE RECORDS SUMMARY | 2024-01-06 01:54 | External Medical Summary | Summary of Care ---
Author Name Unknown Organization [facility] Address [address] [facility] [place] [address] Phone [phone] Care Team Providers Care Director Of Sustainability Name Role Phone Nessa Foreman MD Primary Care Provider + Reason for Visit * Reason Comments eRx-Medication Refill Encounter Details Date Type Department Care Team (Late st Contact Info) Description 09/02/2023 Refill General Internal Medicine [facility] 200 [facility] [place] [address] Amalia Jones MD 200 [place] [address] Spinal stenosis of lumbar region without neurogenic claudication Allergies Active Allergy Reactions Criticality Noted Date Comments Allopurinol Low 01/20/2007 Rash Sulfamethoxazole-Trimethopri m 10/06/2015 Hallucinations, anxiety Penicillins 12/24/2000 hives documented as of this encounter (statuses as of 09/04/2023) Medications Medication Sig Dispensed Refills Start Date End Date Status VITAMIN D 2000 UNITS PO CAPS 1 CAPSULE DAILY 30 Cap 5 2 Active ASPIRIN EC 81 MG PO TBECIndications:b lood flow Take 1 Tablet by mouth daily. 0 Active Blood Glucose Monitoring Suppl (Bow & Drape ULTRA SYSTEM) W/DEVICE KITIndications:DM type 2, goal A1c below 7 Use up to four times a day as directed/E11.9 1 Kit 0 5 Active ONETOUCH DELICA LANCETS 33G MISCIndications:T ype 2 diabetes mellitus with hemoglobin A1c goal of less than 7.0% ([facility]) Test up to twice daily DX E [...] only., Indications: water pill, Reported on 12/03/2022 MigoaTouch Ultra In Vitro Strip (Glucose Blood)Indications :Type 2 diabetes mellitus with hemoglobin A1c goal of less than 7.0% ([facility]) USE 1 STRIP TO CHECK GLUCOSE ONCE TO TWICE DAILY DIRECTED 200 Strip 3 2 Active ProAir HFA 108 (90 Base) MCG/ACT Inhalation Aerosol SolutionIndicatio ns:Wheezing Inhale 2 Puffs by mouth every 4 hours as needed for Wheezing. 18 g 3 2 Active MigoaTouch Verio w/Device Kit Use as directed . 1 Kit 1 2 Active MigoaTouch UltraSoft Lancets Use as directed 4 times [...] chronic, stage III (GFR 30-59 ml/min) ([facility]) Take 1 Tablet by mouth in the morning. As needed for gout. 30 Tablet 1 3 Active Calcitriol 0.25 MCG Oral Capsule (Rocaltrol)Indica tions:CKD (chronic kidney disease) stage 3, GFR 30-59 ml/min ([facility]) TAKE 1 CAPSULE BY MOUTH ONCE DAILY [...] Pain, Severe. 14 Tablet 0 4 Active traMADol HCl 50 MG Oral Tablet (Ultram)Indicatio ns:Spinal stenosis of lumbar region without neurogenic claudication Take 1 Tablet by mouth 2 times a day as needed for Pain, Severe. 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 [employer] Other*[id number] 06/19/2010 05/29/2016 Overview: Study Titile: Gen[employer] Markers for Patients with Cardiovascular Disease Project # [id number] PI: Tara Purcell MD Please call [phone] with study related questions Hand Dermatitis 09/24/2007 01/10/2017 Gout 09/09/2006 10/17/2009 Dermatitis 02/07/2005 09/24/2007 Dyslipidemia, goal to be determined 05/08/2004 04/06/2009 Overview: Per Lipid Taxonomy. Vascular complications of renal artery 06/25/2002 01/10/2017 documented as of this encounter (statuses as of 09/04/2023) Immunizations Name Administration Dates Next Due COVID-19 [...] Telephone Encounter - Nessa Foreman MD - 09/04/2023 12:31 PM EDT Signed Prescriptions: Disp Refills traMADol HCl 50 MG Oral Tablet (Ultram) 14 Tab*0 Sig: Take 1 Tablet by mouth every 6 hours as needed for Pain, Severe. Authorizing Provider: NESSA FOREMAN * Telephone Encounter - Fei Rivero [facility] - 09/04/2023 8:24 AM EDT Pending Prescriptions: Disp Refills traMADol HCl 50 MG Oral Tablet 14 Tab*0 Sig: TAKE 1 TABLET BY MOUTH TWICE DAILY NEEDED FOR SEVERE PAIN * Telephone Encounter - Fei Rivero [facility] - 09/04/2023 8:23 AM EDT I have reviewed the patients controlled substance dispensing history in the Prescription Drug Monitoring Program in compliance with the [facility] regulations before prescribing a controlled substance. PDMP checked on 09/04/2023. Pending Prescriptions: Disp Refills traMADol HCl 50 MG Oral Tablet (Ultram) [*14 Tab*0 Sig: TAKE 1 TABLET BY MOUTH TWICE DAILY NEEDED FOR SEVERE PAIN Last Visit: 08/13/2023 (in office), Visit date not found (telemedicine) Next Visit: 02/18/2024 Date medication was last filled: 07/22/23 Date medication is due for refill: 07/29/23 [facility] Is this request for a controlled substance? Yes and Urine Drug Screen Not completed Toxicology results: No results found. However, due to the size of the patient record, not all encounters were searched.Please check Results Review for a complete set of results. Please approve if appropriate. Thanks, Fei Rivero, PharmD Clinical Pharmacist [facility] Services ([facility]PS) (formerly Telepharmacy) [phone] 09/04/2023, 8:23 AM documented in this encounter Plan of Treatment Upcoming Encounters Date Type Department Care Team (Latest Contact Info) Description 09/12/2023 8:15 AM EDT Office Visit Orthopaedics [facility] [address] [place] [address] Omer Hammond, DO [address] [place] [address] 09/20/2023 9:40 AM EDT Telemedicine Pharmacy, [facility] 200 [facility] [place] [address] Pharmacist1, [facility] [address] [facility] [place] [address] 10/09/2023 1:45 PM EDT Hospital Encounter [facility], Operating Room [facility] [address] [place] [phone] James Carin, DO [address] [place] [phone] 10/09/2023 1:45 PM EDT - 10/09/2023 2:10 PM EDT Surgery OR [facility], Operating Room [facility] [address] [place] [phone] James Crain, DO [address] [place] [address] INJECTION SACROILIAC JOINT 12/03/2023 9:00 AM EDT Imaging Vascular Lab, [facility] 2nd Floor, [place] [address] [facility] [place] [address] 12/11/2023 11:50 AM EDT Office Visit Vascular Surgery, [facility] [address] [facility] [place] [address] Sergei Frost MD [address] [place] [address] 01/07/2024 2:30 PM EDT Office Visit Cardiology, [facility] [address] [facility] [place] [address] Jerry Cano, DO [address] [place] [address] 02/18/2024 3:00 PM EDT Office Visit General Internal Medicine [facility] 200 [facility] [place] [address] Nessa Foreman MD 200 [facility] [place] [address] Scheduled Procedures Name Priority Associated Diagnoses Date/Ti [...] Additional history exists CKD HGB USE SMARTSET 73887 11/15/202311/14, 11/14/2022, 07/11/2022, Additional history exists GFR 01/17/2024 07/17/2023, 10/21, 03/19/2022, Additional history exists HbA1c 01/17/2024 07/17/2023, 10/21, 07/11/2022, Additional history exists Diabetic Foot Exam 01/30/2024 01/29/2023, 1 05/21/2020, 02/24/2020, Additional history exists CKD PHOS USE SMARTSET 95998 07/16/202406/21, 07/11/2022, 06/26/2021, Additional history exists DTaP,Tdap,and [...] this encounter Medical Devices Implanted Type Area Clinical Biostatistics Director Device Identifier Shelf Expiration Date Model / Serial / Lot Stent [id number] Frank [id number] - [id number] Implanted:Qty: 1 on 01/29/2011 at OR [facility] Right: Renal Artery JNJ : CORDIS ENDOVASCULAR 07/21/2012 [id number] / / [id number] Lens Intraoc 18.5 - [id number] - [id number] Implanted:Qty: 1 on 10/16/2018 by Jhonny Stanton MD at OR [facility] Left: Eye BAUSCH & LOMB 02/19/2023 [id number] / [id number] / [id number] Lens Intraoc 18.0 - [id number] - [id number] Implanted:Qty: 1 on 10/28/2018 by Jhonny Stanton MD at OR [facility] Right: Eye BAUSCH & LOMB 11/19/2022 [id number] / [id number] / documented as of this encounter Visit [...] Advance Directives occurred with: Patient Care Teams Director Of Sustainability Relationship Specialty Start Date End Date Nessa Foreman MD [address] [place] [address] PCP - General Internal Medicine 05/11/10 documented as of this encounter
--- OUTSIDE RECORDS SUMMARY | 2024-01-06 01:54 | External Medical Summary | Summary of Care ---
Author Name Unknown Organization [facility] Address [address] [facility] [place] [address] Phone [phone] Care Team Providers Care Tanning Wheel Filler Name Role Phone Nessa Foreman MD Primary Care Provider + Reason for Visit * Reason Onset Date Comments Appointment 08/23/2023 recall Encounter Details Date Type Department Care Team (Late st Contact Info) Description 08/23/2023 Telephone Vascular Surg [facility] [address] [place] [address] Sergei Frost MD [address] [place] [address] Appointment (recall) Allergies Active Allergy Reactions Criticality Noted Date Comments Allopurinol Low 01/20/2007 Rash Sulfamethoxazole-Trimethopri m 10/06/2015 Hallucinations, anxiety Penicillins 12/24/2000 hives documented as of this encounter (statuses as of 08/26/2023) Medications Medication Sig Dispensed Refills Start Date End Date Status VITAMIN D 2000 UNITS PO CAPS 1 CAPSULE DAILY 30 Cap 5 11/29/2011 Active ASPIRIN EC 81 MG PO TBECIndications:blo od flow Take 1 Tablet by mouth daily. 0 Active Blood Glucose Monitoring Suppl (Family-Mingle ULTRA SYSTEM) W/DEVICE KITIndications:DM type 2, goal A1c below 7 Use up to four times a day as directed/E11.9 1 Kit 0 02/04/2015 Active M:MetricsUCH DELICA LANCETS 33G MISCIndications:Typ e 2 diabetes [...] only., Indications: water pill, Reported on 12/03/2022 CANDDi Ultra In Vitro Strip (Glucose Blood)Indications:T ype 2 diabetes mellitus with hemoglobin A1c goal of less than 7.0% ([facility]) USE 1 STRIP TO CHECK GLUCOSE ONCE TO TWICE DAILY DIRECTED 200 Strip 3 01/24/2022 Active ProAir HFA 108 (90 Base) MCG/ACT Inhalation Aerosol SolutionIndications :Wheezing Inhale 2 Puffs by mouth every 4 hours as needed for Wheezing. 18 g 3 04/07/2022 Active CANDDi Verio w/Device Kit Use as directed . 1 Kit 1 04/18/2022 Active CANDDi UltraSoft Lancets Use as directed 4 times [...] disease, chronic, stage III (GFR 30-59 ml/min) ([facility]) Take 1 Tablet by mouth in the morning. As needed for gout. 30 Tablet 1 12/13/2022 Active Calcitriol 0.25 MCG Oral Capsule (Rocaltrol)Indicati ons:CKD (chronic kidney disease) stage 3, GFR 30-59 ml/min ([facility]) TAKE 1 CAPSULE BY MOUTH ONCE [...] hemoglobin A1c goal of less than 7.0% ([facility]) Take 1 Tablet by mouth 2 times a day with morning and evening meals. 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 [employer] Other*[id number] 06/19/2010 05/29/2016 Overview: Study Titile: Genomics Markers for Patients with Cardiovascular Disease Project # [id number] PI: Tara Purcell MD Please call [phone] with study related questions Hand Dermatitis 09/24/2007 01/10/2017 Gout 09/09/2006 10/17/2009 Dermatitis 02/07/2005 09/24/2007 Dyslipidemia, goal to be determined 05/08/2004 04/06/2009 Overview: Per Lipid Taxonomy. Vascular complications of renal artery 06/25/2002 01/10/2017 documented as of this encounter (statuses as of 08/26/2023) Immunizations Name Administration Dates Next Due COVID-19 [...] Inj 04/28/2014,01/27/2013,02/19/2012,01/03,01/11/2010,02/27/2008,02/17/2007 ,02/22/2006,02/12/2005,02/01/2003,01/21 TD, Preservative Free 02/10/2018 TDAP (age 11 [...] AM EDT -F/U in 1 year at [facility], or sooner prn. Will need repeat renal duplex completed at [facility] 1 week prior to clinic visit. (Santosh november 2023) Called and left a message for patient to schedule her year follow up rrh documented in this encounter Plan of Treatment Upcoming Encounters Date Type Department Care Team (Latest Contact Info) Description 09/12/2023 8:15 AM EDT Office Visit Orth[facility]ics [facility] [address] [place] [address] Omer Hammond, [address] [place] [address] 09/20/2023 9:40 AM EDT Telemedicine Pharmacy, [facility] [place] [address] Pharmacist1, [facility] [address] 10/09/2023 1:45 PM EDT Hospital Encounter [facility], Operating Room [facility] [address] [place] [phone] James Crain, [address] [place] [phone] 10/09/2023 1:45 PM EDT - 10/09/2023 2:10 PM EDT Surgery [facility], Operating Room [facility] [address] [place] [phone] James Crain, DO [address] [place] [address] INJECTION SACROILIAC JOINT 12/03/2023 9:00 AM EDT Imaging Vascular Lab, [facility] 2nd Floor, [place] [address] [facility] [place] [address] 12/11/2023 11:50 AM EDT Office Visit Vascular Surgery, [facility] [address] [facility] [place] [address] Sergei Frost MD [address] [place] [address] 01/07/2024 2:30 PM EDT Office Visit Cardiology, [facility] [address] [facility] [place] [address] Jerry Cano O, DO [address] [place] [address] 02/18/2024 3:00 PM EDT Office Visit General Internal Medicine [facility] [address] [facility] [place] [address] Nessa Foremna MD [address] [facility] [place] [address] Scheduled Procedures Name Priority Associated Diagnoses Date/Ti [...] Additional history exists CKD HGB USE SMARTSET 40436 11/15/202311/14, 11/14/2022, 07/11/2022, Additional history exists GFR 01/17/2024 07/17/2023, 10/21, 03/19/2022, Additional history exists HbA1c 01/17/2024 07/17/2023, 10/21, 07/11/2022, Additional history exists Diabetic Foot Exam 01/30/2024 01/29/2023, 1 05/21/2020, 02/24/2020, Additional history exists CKD PHOS USE SMARTSET 98608 07/16/202406/21, 07/11/2022, 06/26/2021, Additional history exists DTaP,Tdap,and [...] this encounter Medical Devices Implanted Type Area Cat Scan Tech Device Identifier Shelf Expiration Date Model / Serial / Lot Stent [id number] Frank [id number] - [id number] Implanted:Qty: 1 on 01/29/2011 at OR [facility] Right: Renal Artery JNJ : CORDIS ENDOVASCULAR 07/21/2012 [id number] / / [id number] Lens Intraoc 18.5 - [id number] - [id number] Implanted:Qty: 1 on 10/16/2018 by Jhonny Stanton MD at OR [facility] Left: Eye BAUSCH & LOMB 02/19/2023 [id number] / [id number] / [id number] Lens Intraoc 18.0 - [id number] - [id number] Implanted:Qty: 1 on 10/28/2018 by Jhonny Stanton MD at OR [facility] Right: Eye BAUSCH & LOMB 11/19/2022 [id number] / [id number] / documented as of this encounter Advance [...] Advance Directives occurred with: Patient Care Teams Tanning Wheel Filler Relationship Specialty Start Date End Date Nessa Foreman MD [address] [place] [address] PCP - General Internal Medicine 05/11/10 documented as of this encounter
--- OUTSIDE RECORDS SUMMARY | 2024-01-06 01:54 | External Medical Summary | Summary of Care ---
Author Name Unknown Organization [facility] Address [address] [place] [address] Phone [phone] Care Team Providers Care Metrology Manager Name Role Phone Nessa Foreman MD Primary Care Provider + Reason for Visit * Reason Comments Diabetes Follow-Up Dosage Adjustment In Person (Anticoag Cl inic) Diabetes Education * Evaluate & Treat - Unlimited Visits (Within 30 days (routine)) - Authorized Specialty Diagnoses / Procedures Referred By Contac t Referred To Contact Pharmacist / Pharmacy Diagnoses Type 2 diabetes mellitus with hemoglobin A1c goal of less than 7.0% (HCC) Nessa Foreman MD [address] [place] [address] [address] Referral ID Status Reason Start Date Expiration Date Visits Requested Visits Authorized [id number] Authorized Specialty Services Required 08/13/2023 99 99 Encounter Details Date Type Department Care Team (Late st Contact Info) Description 08/23/2023 11:20 AM EDT Office Visit Pharmacy, State Ahsan Armstrong [address] [place] [address] Pharmacist1, [facility] [address] [place] [address] Type 2 diabetes mellitus with hemoglobin A1c goal of less than 7.0% (HCC)*; Type 2 diabetes mellitus with stage 3b chronic kidney disease, without long-term current use of insulin (HCC) Allergies Active Allergy Reactions Criticality Noted [...] daily. 0 Active Blood Glucose Monitoring Suppl (ColorModules ULTRA SYSTEM) W/DEVICE KITIndications:DM type 2, goal [...] only., Indications: water pill, Reported on 12/03/2022 [employer] Ultra In Vitro Strip (Glucose Blood)Indications:T ype [...] disease, chronic, stage III (GFR 30-59 ml/min) ([facility]) Take 1 Tablet by mouth in the morning. As needed for gout. 30 Tablet 1 12/13/2022 Active Calcitriol 0.25 MCG Oral Capsule (Rocaltrol)Indicati ons:CKD (chronic kidney disease) stage 3, GFR 30-59 ml/min ([facility]) TAKE 1 CAPSULE BY MOUTH [...] Oliver MD on 07/20/2022 Overview: History 12/19/20 WIRE BORDER ASSEMBLER/Onc note "REBECA" ADVANCE DIRECTIVE INFORMATION 10/08/2016 01/10/2017 Overview: No, Advance Directive brochure offered , patient declined. [employer] Other*[id number] 06/19/2010 05/29/2016 Overview: Study Titile: [employer] Markers for Patients with Cardiovascular Disease Project # [id number] PI: Tara Purcell MD Please call [phone] with study related questions Hand Dermatitis 09/24/2007 [...] encounter Progress Notes * Alfredo Garsia, [facility] - 08/23/2023 11:04 AM EDT Medication Therapy Disease Management Clinic - Diabetes Management Progress Note Makenna Escobar, identified by name and date of , is a 77 year old female being seen for diabetes management/education. Patient presents for return diabetic visit. New referral received - Ozempic no longer available on PAP DIABETES: Current diabetic medications: Ozempic 1mg weekly on Sundays Medication Injection Site: Abdomen Lifestyle: Diet: unchanged History of Treatment Barriers: Lifestyle: None Therapy considerations: Renal Function and Cost Medication: metformin ER and IR: MINOO diarrhea Glucose Review/SMBG: Readings obtained from patient device Pre am Post am Pre Lunch Post Lunch 118 113 1-Jun 120 110 112 123 123 127 112 111 113 102 127 115 117 124 129 128 95 1-Apr 112 125 123 111 122 141 138 130 128 145 137 145 136 128 69 92 124 119 2-Jun 108 Pre am Post am Pre Lunch Post Lunch Average 123 #DIV/0! 82 92 Hi 145 0 95 92 Lo 102 0 69 92 Range 43 0 26 0 Hypoglycemia: Does your blood sugar go below 70 mg/dL? Yes, symptomatic and treated correctly Hyperglycemia symptoms present: none Goal <7 Recent [...] 01/13/2019 11:21 AM CREATININE, RANDOM URINE - [facility] 26 07/11/2018 03:00 PM CREATININE-OUTSIDE LAB 1.50 (A) 09/28/2015 12:00 AM CREATININE-OUTSIDE LAB 1.42 (A) 05/04/2014 12:00 AM HYPERTENSION: Patient on ACEi/ARB: yes, Losartan 100mg daily BP Readings from Last 3 Encounters: 08/13/23 128/70 07/25/23 154/84 01/29/23 128/62 Blood pressure at goal: yes HYPERLIPIDEMIA: Patient is taking moderate or high intensity statin: yes, Atorvastatin 20mg daily HEALTH MAINTENANCE REVIEW: Health Maintenance Due Topic Date Due Zoster Vaccines (2 of 3) 01/28/2012 Depression Screening 09/06/2021 COVID-19 Vaccine ( season) 2022 Albumin/Creatinine Ratio 2023 ASSESSMENT & PLAN: ICD-10-CM 1. Type 2 diabetes mellitus with hemoglobin A1c goal of less than 7.0% ([facility]) E11.9 2. Type 2 diabetes mellitus with stage 3b chronic kidney disease, without long- term current use of insulin ([facility]) E11.22 N18.32 BG Readings - Blood sugars controlled. Doing once daily in AM. Having her do BG once daily rotatingwhile using Ozempic and Metformin ER and then Metformin ER alone Medications - Reviewed current regimen, patient is adherent to regimen. Ozempic no longer availablethru PAP. Will cost patient $47 a month or $117 for 3 months. Wants to see if alternative medications work. If not will pay for Ozempic. She will start Metformin ER 500mg twice daily (cannot go higher due to GFR of 50. Also she had diarrhea before using Metformin) Diet, Exercise, Lifestyle - No significant lifestyle changes since last visit. Discussed with patient today. Patient is agreeable to SMBG 1 time(s) daily rotating. Patient aware to contact clinic if any hypoglycemia before next visit. MEDICATION CHANGES: yes, see below; preferred pharmacy: [facility] Medications: Ozempic 1mg weekly on Sundays (has 2 weeks left) START: Metformin ER 500mg twice daily HEALTH MAINTENANCE INTERVENTIONS: Labs: Up to Date Immunizations: needs shingles vaccine Foot Exam: Up to Date Eye Exam: Up to Date Annual Wellness Visit: Up to Date FOLLOW UP: Phone call follow up in 4 weeks 09/20/2023 Alfredo Gupta RPh, NENAE Clinical Pharmacist - Configuration Management Architect Medication Therapy Management [facility] 08/23/2023, 11:05 AM documented in this encounter Plan of Treatment Upcoming Encounters Date Type Department Care Team (Latest Contact Info) Description 09/12/2023 8:15 AM EDT Office Visit Orthopaedics [facility] [address] [address] Omer Hammond, [address] [address] 09/20/2023 9:40 AM EDT Telemedicine Pharmacy, [facility] [place] [address] [place] [address] [address] Pharmacist1, [facility] [address] [place] [address] 10/09/2023 1:45 PM EDT Hospital Encounter [facility], Operating Room [facility] [address] [phone] James Crain, DO [address] [place] [phone] 10/09/2023 1:45 PM EDT - 10/09/2023 2:10 PM EDT Surgery [facility], Operating Room [facility] [address] [place] [phone] James Crain, DO [address] [place] [phone] INJECTION SACROILIAC JOINT 01/07/2024 2:30 PM EDT Office Visit Cardiology, [facility] [address] [place] [address] Jerry Cano, DO [address] [place] [address] 02/18/2024 3:00 PM EDT Office Visit General Internal Medicine [facility] [address] [facility] [place], [place] [address] Nessa Foreman MD [address] [place] [address] Scheduled Procedures Name Priority Associated Diagnoses Date/Ti [...] Additional history exists CKD HGB USE SMARTSET 76780 11/15/202311/14, 11/14/2022, 07/11/2022, Additional history exists GFR 01/17/2024 07/17/2023, 10/21, 03/19/2022, Additional history exists HbA1c 01/17/2024 07/17/2023, 10/21, 07/11/2022, Additional history exists Diabetic Foot Exam 01/30/2024 01/29/2023, 1 05/21/2020, 02/24/2020, Additional history exists CKD PHOS USE SMARTSET 75881 07/16/202406/21, 07/11/2022, 06/26/2021, Additional history exists DTaP,Tdap,and [...] this encounter Medical Devices Implanted Type Area Housekeeper Supervisor Device Identifier Shelf Expiration Date Model / Serial / Lot Stent [id number] - [id number] Implanted:Qty: 1 on 01/29/2011 at OR [facility] [place] Right: Renal Artery JNJ : [employer] 07/21/2012 [id number] / / [id number] Lens Intraoc 18.5 - [id number] - [id number] Implanted:Qty: 1 on 10/16/2018 by Jhonny Stanton MD at OR [facility] Left: Eye [employer] 02/19/2023 [id number] / [id number] / [id number] Lens Intraoc 18.0 - [id number] - [id number] Implanted:Qty: 1 on 10/28/2018 by Jhonny Stanton MD at [facility] Right: Eye [employer]OM[employer] 11/19/2022 [id number] / [id number] / documented as of this encounter Visit [...] Advance Directives occurred with: Patient Care Teams Metrology Manager Relationship Specialty Start Date End Date Nessa Foreman MD [address] [place] [address] PCP - General Internal Medicine 05/11/10 documented as of this encounter
--- OUTSIDE RECORDS SUMMARY | 2024-01-06 01:54 | External Medical Summary | Summary of Care ---
Author Name Unknown Organization [facility] Address [address] [place] [address] Phone [phone] Care Team Providers Care Car Audio Installer Name Role Phone Nessa Foreman MD Primary Care Provider + Reason for Visit * Auth/Cert Specialty Diagnoses / Procedures Referred By Sarah christianson Referred To Contact Diagnoses Inflammation of sacroiliac joint (HCC) Inflammation of sacroiliac joint (HCC) [M46.1] Procedures SACROILIAC JOINT INJECT W/GUIDANCE INJECTION SACROILIAC JOINT James Crain DO [address] [place] [address] Or [facility] [address] [place] [phone] Referral ID Status Reason Start Date Expiration Date Visits Re quested Visits Authorized [id number] Encounter Details Date Type Department Care Team (Latest Contact Info) Description 09/18/2023 8:41 AM EDT - 09/18/2023 9:40 AM EDT Hospital Encounter OR [facility], Operating Room [facility] [address] [place] [address] James Crain DO [address] [place] [address] Discharge Disposition: Home - Self Care Allergies Active Allergy Reactions Criticality Noted Date Comments Allopurinol Low 01/20/2007 Rash Sulfamethoxazole-Trimet hoprim 10/06/2015 Hallucinations, anxiety Metformin Diarrhea,Edema Other 09/06/2023 Penicillins 12/24/2000 hives documented as of this encounter (statuses as of 09/18/2023) Medications Medication Sig Dispensed Refills Start Date End Date Status VITAMIN D 2000 UNITS PO CAPS 1 CAPSULE DAILY 30 Cap 5 11/29/2011 Active ASPIRIN EC 81 MG PO TBECIndications:blo od flow Take 1 Tablet by mouth daily. Active Blood Glucose Monitoring Suppl ([employer] [facility] ULTRA SYSTEM) W/DEVICE KITIndications:DM type 2, goal [...] only., Indications: water pill, Reported on 12/03/2022 e2e Materialsuch Ultra In Vitro Strip (Glucose Blood)Indications:T ype [...] directed . 1 Kit 1 04/18/2022 Active EmbedlyTouch UltraSoft Lancets Use as directed 4 times [...] chronic, stage III (GFR 30-59 ml/min) ([facility]) Take 1 Tablet by mouth in the morning. As needed for gout. 30 Tablet 1 12/13/2022 Active Calcitriol 0.25 MCG Oral Capsule (Rocaltrol)Indicati ons:CKD (chronic kidney disease) stage 3, GFR 30-59 ml/min ([facility]) TAKE 1 CAPSULE BY MOUTH ONCE [...] A1c goal of less than 7.0% ([facility]) Inject 1 mg under the skin [...] as of this encounter (statuses as of 09/18/2023) Active Problems Problem Noted Date Diagnosed Date [...] as of this encounter (statuses as of 09/18/2023) Resolved Problems Problem Noted Date Diagnosed Date Resolved Date Endometrial cancer 07/19/2022 Cancer Staging:Pathologic stage from 11/27/2016:FIGO Stage IA(pT1a, pN0, cM0) - Signed by Ronald Oliver MD on 07/20/2022 Overview: History 12/19/20 RN RELIEF CHARGE/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 [employer] Other*[id number] 06/19/2010 05/29/2016 Overview: Study Titile: [employer] Markers for Patients with Cardiovascular Disease Project # [id number] PI: Tara Purcell MD Please call [phone] with study related questions Hand Dermatitis 09/24/2007 01/10/2017 Gout 09/09/2006 10/17/2009 Dermatitis 02/07/2005 09/24/2007 Dyslipidemia, goal to be determined 05/08/2004 04/06/2009 Overview: Per Lipid Taxonomy. Vascular complications of renal artery 06/25/2002 01/10/2017 documented as of this encounter (statuses as of 09/18/2023) Immunizations Name Administration Dates Next Due COVID-19 [...] Sign Reading Time Taken Comments Blood Pressure 184/74 09/18/2023 9:36 AM EDT Pulse 69 09/18/2023 9:36 AM EDT Temperature 36.4 C (97.6 F) 09/18/2023 9:36 AM ED T Respiratory Rate 18 09/18/2023 9:36 AM EDT Oxygen Saturation 95% 09/18/2023 9:36 AM EDT Inhaled Oxygen Concentration - - Weight 108.9 kg (240 lb) 09/18/2023 8:58 AM EDT Height 160 cm (5' 3") 09/18/2023 8:58 AM EDT Body Mass Index 42.51 09/18/2023 8:58 AM EDT documented in this encounter Discharge Instructions * Discharge Instr - AVS* James Crain DO - 09/18/2023 9:34 AM EDT [facility] [address] [facility] [place] [address] Discharge Date: 09/18/2023 You may call [facility] at [phone] during business hours. For after-hours emergencies call 911. Your attending physician at the time of your discharge was: [facility] DO [address] [facility] [place] [address] The information below provides you with the instructions and the list of medications you need to betaking following discharge from the hospital. If you have any questions, please ask before leaving.Please carry this letter with you when you see your doctor in the clinic. Diet: Resume your normal diet If you are diabetic, follow your blood sugars closely for next 2-3 days as they are likely to be elevated. If you are having difficulty controlling your blood sugars call your family doctor or the physician that treats your diabetes. Activity: Do not engage in strenuous activity today Resume your normal activities tomorrow Do not soak in water for 24 hours. No swimming, hot tub or bath but showering is allowed. Do not use heat on the injection site for 24 hours. If uncomfortable ice may be helpful. Some injections may make your arms or legs weak for a few hours. Be extremely careful when walking or changing positions that you do not fall. Have someone assist you for the next 6 hours. If weakness or numbness becomes progressive CALL IMMEDIATELY or GO TO THE NEAREST EMERGENCY ROOM Do not restart physical therapy or chiropractic manipulation until 48 hours after your injection Call : If weakness or numbness suddenly becomes worse or become progressive If the injection site becomes red, swollen, warm to the touch, begins to bleed or drain fluid, or is excessively painful. If you have any questions Medications: Resume all the medications you were taking prior to your injection. Resume your anticoagulants tomorrow unless otherwise instructed by your family physician, training and quality manager or the anticoagulation clinic. Additional Instructions: Please monitor for symptoms of high blood sugar such as frequent urination, flu-like symptoms and changes in your vision as well as blood sugar values >250mg/dL. If these occur, please report to your PCP and/or UrgentCare or the Emergency Department immediately. Driving: You may resume driving in 12-24 hours if no weakness is noted . Date you may return to work or school: N/A Follow Up: Please make a follow-up telephone appointment with our nursing staff in 4-6 weeks. documented in this encounter Progress Notes * James Crain DO - 09/18/2023 9:34 AM EDT [facility] [address] [address] OUTPATIENT SURGERY DISCHARGE SUMMARY NOTE Name: Makenna Escobar Location: [facility]/OR Date: 09/18/2023 Time: 9:34 AM Surgery Date: 09/18/2023 Procedure: INJECTION SACROILIAC JOINT No laterality found for procedure #1 Surgeon: James Crain DO Discharge Diagnosis: chronic SIJ pain, right After examination of this patient, I have determined she is ready for discharge to home when the patient meets criteria. Discharge instructions were given to the patient. James Crain DO OR [facility], Operating Room [facility] [address] [facility] [place] [address] documented in this encounter H&P Notes * James Crain DO - 09/18/2023 9:12 AM EDT Interventional Pain H&P Subjective: History of Present Illness: Makenna Escobar is a 77 year old year-old female with a past medical history significant for right SIJ pain who is presenting for right SIJ corticosteroid injection to improve her pain and function. her pain is essentially unchanged since our last office visit with her . ASA 3 AW nml Review of Systems: A focused 12-pt ROS were of reviewed with the patient including difficulty with sleep, snoring, aspiration history, dysphagia, stomach pain, nausea and vomiting, severe headaches, confusion, open skin lesions or wounds, chest pain, shortness of breath, excessive thirst, somnolence, dysuria, incomplete bladder emptying, easy bruising, recent clotting problems or bleeding, depression or rushed thoughts unless noted previously. Review of patient's allergies indicates: Allergen Reactions Bactrim [Sulfamethoxazole-Trimethoprim] Hallucinations, anxiety Metformin Diarrhea and Edema Other Penicillins hives Allopurinol Rash Medications, Past Medical History, Past Surgical History reviewed and documented in Epic. See detailed report if needed. Pertinent Labs/Test Results: INR (no units) Date Value 05/29/2010 1.08 No results found for: "CREATININE" Hemoglobin A1C (%) Date Value 07/17/2023 6.4 (H) 02/24/2020 6.4 (H) Lab Results Component Value Date/Time URINE TOTAL PROTEIN 5 04/26/2010 04:43 PM Imaging: I personally reviewed the imaging and my findings were . [facility] RENAL VASCULAR SCAN-COMPLETE VASCULAR LAB RESULTS DATE OF EXAMINATION: 11/12/22 INDICATION: b/l renal artery stents, left stent occluded (?) but large accessory renal artery patent on CT scan This is an interpretation of an exam performed at [facility]. PHYSICIAN REPORT: RENAL ARTERY DUPLEX SCAN Immediately before proceeding with the vascular lab procedure reported below, the identity of the patient, the correct exam and the correct procedural site were verified. Mehta scale, color flow and spectral doppler were performed for this examination. Duplex ultrasound demonstrates an aortic flow velocity of 104.5 centimeters per second. The right renal artery is visualized. The peak systolic velocities are 94.2, 97.9, 107.2 and 60.3 centimeters per second at the origin, proximal, mid and distal renal artery segments, respectively. The renal resistive index is 0.73. The ocwj-ep-bwcb length of the right kidney measured 12.8 centimeters. The right renal-aortic ratio could not be calculated. The right renal vein is visualized and demonstrates normal flow. The left renal artery is visualized. The peak systolic velocities are 132.4, 175.6, 136.2 and 107.1 centimeters per second at the origin, proximal, mid and distal renal artery segments, respectively. The renal resistive index is 0.84. The yhmc-af-zbys length of the left kidney measured 13.1 centimeters. The left renal-aortic ratio could not be calculated. The left renal vein is visualized and demonstrates normal flow. CONCLUSIONS: On the right:: There is no evidence of hemodynamically significant renal artery stenosis. The renal-aortic ratio could not be calculated due to elevated velocities in the aorta. On the left: There is no evidence of hemodynamically significant renal artery stenosis. The renal-aortic ratio could not be calculated due to elevated velocities in the aorta. Objective Physical Exam: Vital Signs: BP 185/85 | Pulse 74 | Temp 36.4 C (97.6 F) (Tympanic) | Resp 17 | Ht 1.6 m (5' 3") | Wt 108.9 kg (240 lb) | SpO2 96% | BMI 42.51 kg/m | BSA 2.2 m Body mass index is 42.51 kg/m. General: No apparent distress. Eyes: pupils equal and round, sclera white, pupils midsize. ENT: mucous membranes moist Resp: Non-labored breathing CV: Extremities warm and well-perfused. Psych: Oriented; affect warm, insight good. 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 The risks, benefits and alternatives to the procedure were reviewed at length and the patient was provided the opportunity to ask questions which were answered to their voiced u nderstanding. Following this comprehensive discussion, the patient opted to proceed. The patient was consented to the procedure following this comprehensive conversation. James Crain DO OR [facility], Operating Room [address] [place] [address] documented in this encounter Nursing Notes * Alicia White RN - 09/18/2023 9:38 AM EDT Visited by Dr Crain. Verbalized understanding of discharge directions. Ready for discharge to home. * Ximena Pathak RN - 09/18/2023 9:30 AM EDT Patient tolerating procedure without complications. documented in this encounter OR Notes * OR Surgeon - James Crain DO - 09/18/2023 9:32 AM EDT SI JOINT INJECTION DATE: 09/18/2023 PHYSICIAN: James Crain DO PREOPERATIVE DIAGNOSIS: Right-sided Sacroiliac Joint Pain Right-sided degenerative sacroiliitis. POSTOPERATIVE DIAGNOSIS: Right-sided Sacroiliac Joint Pain Right-sided degenerative sacroiliitis. PROCEDURE PERFORMED: Sacroiliac joint injection with a corticosteroid and a local anesthetic on the right side. Fluoroscopy for precise needle placement. There was no special education teaching assistant, EBL or drains placed during this procedure. ANESTHESIA: Local infiltration with 1% lidocaine. MONITORS: Automatic blood pressure cuff, pulse oximetry readily available INDICATIONS: We had the pleasure of seeing Makenna Escobar at the [facility] today. Makenna Escobar ([id number]) is a 77 year old year-old female with a history of right-sided sacroiliac joint pain and right-sided degenerative sacroiliitis. The patient is here today for a sacroiliac joint injection. MEDICATIONS: Current Facility-Administered Medications Medication Dose Route Frequency Provider Last Rate Last Admin bupivacaine (Sensorcaine) 0.25 % inj 2.5 mg 1 mL Injection Once James Crain DO ALLERGIES: Review of patient's allergies indicates: Allergen Reactions Bactrim [Sulfamethoxazole-Trimethoprim] Hallucinations, anxiety Metformin Diarrhea and Edema Other Penicillins hives Allopurinol Rash REVIEW OF SYSTEMS: Negative for fever, chills, chest pain, SOB, bleeding abnormalities, nausea, vomiting, diarrhea, worsening edema, or new rashes. FOCUSED PHYSICAL EXAMINATION: The patient is awake, alert and oriented, and is in no acute distress. Vital signs are stable. The patient is afebrile. The rest of the PE is essentially unchanged from the patient's recent visit to our office. I explained the procedure to the patient including the risks, benefits and alternatives to the procedure. The risks discussed with the patient included but were not limited to: bleeding, infection, and damage to surrounding nerves, tissues, and organs, paralysis, increased pain, allergic reaction, blood pressure instability, seizures, heart block, headaches, increase in blood sugar, worsening of glaucoma, blindness, manic episodes, mood instability, and . Alternatives to the procedure werealso explained and include: do nothing, surgery, medications, and physical therapy. The patient verbalized understanding and was willing to proceed. PROCEDURE IN DETAIL: An informed consent was obtained. The patient was taken to the procedure room where the patient was positively identified by the staff and the attending physician. The patient was positioned prone on the bed. The patient's vital signs were monitored as above and remained stablethroughout the procedure. A fluoroscopic view of the right SI joint was obtained. The skin was prepped and draped in the standard sterile fashion. A surgical pause (time-out) was performed and was agreed upon by the members of the team. The skin and subcutaneous tissues were infiltrated with 1% lidocaine using a 25-gauge 1.5- inch needle. A 22-gauge, 3.5-inch spinal needle was advanced into the inferior portion of the right SI joint. The position of the needle was verified in AP and lateral views and by injecting Omniplaque dye, 180 mg/ml, which showed excellent intraarticular spread. After negative aspiration for the CSF or blood, 40 mg of triamcinolone mixed with 1mL of 1% lidocaine was injected. The needle was withdrawn. The patient tolerated the procedure well. The patient was transferred in stable condition to the recovery room. COMPLICATIONS: None. DISPOSITION: 1. Return to clinic in 1-2 months for follow-up evaluation, sooner as needed. 2. Resume activity as tolerated. 3. Patient can drive after 12-24 hours if no weakness noted. 4. Pt to monitor for exacerbation of DM as per D/C instructions. James Crain DO OR [facility], Operating Room [facility] [address] [place] [phone] documented in this encounter Plan of Treatment Upcoming Encounters Date Type Department Care Team (Late st Contact Info) Description 09/20/2023 9:40 AM EDT Telemedicine Pharmacy, [facility] [address] [facility] [place] [address] Pharmacist1, [facility] [address] [facility] [place] [address] 10/15/2023 11:00 AM EDT Scheduled Telephone Interventional Pain Center, [facility] [address] [place] [address] Harjit, Nurse Phone Call Interventional Pain [facility] [address] [place] [address] 10/17/2023 2:15 PM EDT Office Visit Orthopaedics [facility] [address] [place] [address] Omer Hammond DO [address] [place] [address] 12/03/2023 9:00 AM EDT Imaging Vascular Lab, [facility] 2nd Floor, [place] [address] [place] [address] 12/11/2023 11:50 AM EDT Office Visit Vascular Surgery, [facility] [address] [facility] [place] [address] Sergei Frost MD [address] [place] [address] 01/07/2024 2:30 PM EDT Office Visit Cardiology, [facility] [address] [facility] [place] [address] Jerry Cano O, DO 132 [facility] [place] [address] 02/18/2024 3:00 PM EDT Office Visit General Internal Medicine [facility] [address] [place] [address] Nessa Foreman MD [address] [facility] [place] [address] Scheduled Procedures Name Priority Associated Diagnoses Date/Ti me INJECTION SACROILIAC JOINT Inflammation of sacroiliac joint (HCC) 09/18/2023 9:23 AM EDT ROBOTIC ARTHROPLASTY KNEE TOTAL Knee osteoarthritis [...] Additional history exists CKD HGB USE SMARTSET 78069 11/15/202311/14, 11/14/2022, 07/11/2022, Additional history exists GFR 01/17/2024 07/17/2023, 10/21, 03/19/2022, Additional history exists HbA1c 01/17/2024 07/17/2023, 10/21, 07/11/2022, Additional history exists Diabetic Foot Exam 01/30/2024 01/29/2023, 1 05/21/2020, 02/24/2020, Additional history exists CKD PHOS USE SMARTSET 98140 07/16/202406/21, 07/11/2022, 06/26/2021, Additional history exists DTaP,Tdap,and [...] this encounter Medical Devices Implanted Type Area Block And Case Maker Device Identifier Shelf Expiration Date Model / Serial / Lot Stent [id number] - [id number] Implanted:Qty: 1 on 01/29/2011 at [place] [facility]: Renal Artery JNJ : [employer] 07/21/2012 [id number] / / [id number] Lens Intraoc 18.5 - [id number] - [id number] Implanted:Qty: 1 on 10/16/2018 by Jhonny Stanton MD at OR [facility] Left: Eye [employer] 02/19/2023 [id number] / [id number] / [id number] Lens Intraoc 18.0 - [id number] - [id number] Implanted:Qty: 1 on 10/28/2018 by Jhonny Stanton MD at OR [facility] Right: Eye [employer] 11/19/2022 [id number] / [id number] / documented as of this encounter Procedures Procedure Name Priority Date/Time Associated Diagnosis Comments FLUORO INTERVENTIONAL PAIN PROCEDURE NONBILLABLE Routine 09/18/2023 9:37 AM EDT documented in this encounter Results * FLUORO INTERVENTIONAL PAIN PROCEDURE NONBILLABLE (09/18/2023 9:37 AM EDT) Narrative Scheduling, Silent - 09/18/2023 9:37 AM EDT This procedure will not be read by a Radiologist. Please see operative note. James Crain RAD FLUOROSCOPY documented in this encounter Administered Medications Inactive Administered Medications - up to 3 most recent administrations Medication Order MAR Action Action Date Dose Rate Site bupivacaine (Sensorcaine) 0.25 % inj 2.5 mg 2.5 mg (1 mL), Injection, ONCE, On Sat09/18/23 at 0945, For 1 dose Iohexol (Omnipaque 180) inj 1 mL 1 mL, Injection, ONCE, On Sat09/18/23 at 0945, For 1 dose Given 09/18/2023 9:29 AM EDT 1 mL lidocaine 1 % inj 20 mg 20 mg (2 mL), Subcutaneous, ONCE, On Sat09/18/23 at 0945, For 1 dose Given 09/18/2023 9:28 AM EDT 5 mL O ther-Specify Triamcinolone Acetonide (Kenalog) 40 MG/ML inj 40 mg 40 mg, Intra-Articular, ONCE, On Sat09/18/23 at 0945, For 1 dose Given 09/18/2023 9:30 AM EDT 40 mg documented in this encounter Active and Recently Administered Medications Times are shown in EDT. Scheduled Medication Order 09/16/2023 09/17/2023 09/18/2023 bupivacaine (Sensorcaine) 0.25 % inj 2.5 mg 2.5 mg (1 mL), Injection, ONCE, On Sat09/18/23 at 0945, For 1 dose 0945 (Not Given - Pr ovider: Ximena Pathak RN - Reason: Order Discontinued) Iohexol (Omnipaque 180) inj 1 mL (COMPLETED) 1 mL, Injection, ONCE, On Sat09/18/23 at 0945, For 1 dose 0929 (Given - Provid er: Ximena Pathak RN) lidocaine 1 % inj 20 mg (COMPLETED) 20 mg (2 mL), Subcutaneous, ONCE, On Sat09/18/23 at 0945, For 1 dose 09 (Given - Provid er: Ximena Pathak RN) Triamcinolone Acetonide (Kenalog) 40 MG/ML inj 40 mg (COMPLETED) 40 mg, Intra-Articular, ONCE, On Sat09/18/23 at 0945, For 1 dose 0930 (Given - Provid er: Ximena Pathak RN) documented in this encounter Advance Directives * [...] Advance Directives occurred with: Patient Care Teams Car Audio Installer Relationship Specialty Start Date End Date Nessa Foreman MD [address] [place] [address] PCP - General Internal Medicine 05/11/10 documented as of this encounter
--- OUTSIDE RECORDS SUMMARY | 2024-01-06 01:55 | External Medical Summary | Summary of Care ---
Author Name Unknown Organization [facility] Address [address] [place] [facility] [address] Phone [phone] Care Team Providers Care Professor Computer Science Name Role Phone Nessa Foreman MD Primary Care Provider + Reason for Referral * Evaluate & Treat - Unlimited Visits (Within 30 days (routine)) - Authorized Specialty Diagnoses / Procedures Referred By Contac t Referred To Contact Pharmacist / Pharmacy Diagnoses Type 2 diabetes mellitus with hemoglobin A1c goal of less than 7.0% ([facility]) Nessa Foreman MD [address] [place] [address] Referral ID Status Reason Start Date Expiration Date Visits Requested Visits Authorized [id number] Authorized Specialty Services Required 08/13/2023 99 99 Question Answer Referral Priority Within 30 days (routine) Where should this appointment be scheduled? [facility] Referring Provider Role: Primary Care Reason for Referral: DM Target A1c: < 7 Comments Pharmacist Medication Therapy Management: Minimum frequency patient should be seen in person for medication management: as appropriate per clinical condition and patient status By my signature, I understand that my patient Makenna Escobar will have her medication therapy managed by the [facility] ([facility]) per established policies, procedures, and protocols. I also certify that this referral may serve as an initiation of service for the management of drug therapy in the above noted patient. [facility] providers will be responsible for scheduling patient visits, obtaining appropriate laboratory studies, and adjusting medication management therapy per patient's need, in addition to those roles spelled out in the clinic policy, procedures, and drug management protocols. I understand that the service provided by the [facility] is voluntary and have informed patient that they can refuse the service at their discretion. I am aware that the [facility] Clinic will provide me with a copy of the patient encounter via [facility]. I authorize the [facility] to carry out these activities on my behalf. I consider this program to be a necessary part of the patient's medical care. Nessa Foreman MD Reason for Visit * Reason Comments Follow Up Encounter Details Date Type Department Care Team (Late st Contact Info) Description 08/13/2023 2:40 PM EDT Office Visit General Internal Medicine [facility] [place] [address] [facility] [place] [address] Nessa Foreman MD [address] [facility] [place] [address] HTN, goal below 140/90*; Type 2 diabetes mellitus with hemoglobin A1c goal of less than 7.0% ([facility]); Gouty arthropathy, chronic, without tophi; DYSLIPIDEMIA, GOAL LDL BELOW 100; Chronic kidney disease, stage 3b ([facility]); Gastroesophageal reflux disease without esophagitis; Morbid obesity with BMI of 45.0-49.9, adult ([facility]); Morbid obesity with BMI of 40.0-44.9, adult ([facility]); Type 2 diabetes mellitus with stage 3b chronic kidney disease, without long-term current use of insulin ([facility]); Primary open-angle glaucoma, right eye, moderate stage; ATILIO (generalized anxiety disorder); Hypertensive heart and kidney disease with chronic diastolic congestive heart failure and stage 3a chronic kidney disease ([facility]) Allergies Active Allergy Reactions Criticality Noted Date Comments Allopurinol Low 01/20/2007 Rash Sulfamethoxazole-Trimethopri m 10/06/2015 Hallucinations, anxiety Penicillins 12/24/2000 hives documented as of this encounter (statuses as of 08/13/2023) Medications Medication Sig Dispensed Refills Start Date End Date Status VITAMIN D 2000 UNITS PO CAPS 1 CAPSULE DAILY 30 Cap 5 2 Active ASPIRIN EC 81 MG PO TBECIndications:bl ood flow Take 1 Tablet by mouth daily. 0 Active Blood Glucose Monitoring Suppl (S[employer] ULTRA SYSTEM) W/DEVICE KITIndications:DM type 2, goal A1c below 7 Use up to four times a day as directed/E11.9 1 Kit 0 5 Active [employer]CH DELICA LANCETS 33G MISCIndications:Ty pe 2 diabetes [...] only., Indications: water pill, Reported on 12/03/2022 [employer] Ultra In Vitro Strip (Glucose Blood)Indications: Type 2 diabetes mellitus with hemoglobin A1c goal of less than 7.0% (HCC) USE 1 STRIP TO CHECK GLUCOSE ONCE TO TWICE DAILY DIRECTED 200 Strip 3 2 Active ProAir HFA 108 (90 Base) MCG/ACT Inhalation Aerosol SolutionIndication s:Wheezing Inhale 2 Puffs by mouth every 4 hours as needed for Wheezing. 18 g 3 2 Active IZEAuch Verio w/Device Kit Use as directed . [...] Tablet 6 4 Active Ozempic (1 MG/DOSE) 2 MG/1.5ML Subcutaneous Solution Pen-injector (Semaglutide (1 MG/DOSE))Indicatio ns:Type 2 diabetes mellitus with hemoglobin A1c goal of less than 7.0% (HCC) Inject 1 mg under the skin once a week. On Sundays 9 mL 5 4 Active Ozempic (1 MG/DOSE) 2 MG/1.5ML Subcutaneous Solution Pen-injector (Semaglutide (1 MG/DOSE))Indicatio ns:Type 2 diabetes mellitus with hemoglobin A1c goal of less than 7.0% (HCC) Inject 1 mg under the skin once a week. On Sundays 9 mL 1 3 08/13/19 24 Discontinu ed(Refill) documented as of this encounter (statuses as of 08/13/2023) Active Problems Problem Noted Date Diagnosed Date [...] as of this encounter (statuses as of 08/13/2023) Resolved Problems Problem Noted Date Diagnosed Date Resolved Date Endometrial cancer 07/19/2022 Cancer Staging:Pathologic stage from 11/27/2016:FIGO Stage IA(pT1a, pN0, cM0) - Signed by Ronald Oliver MD on 07/20/2022 Overview: History 12/19/20 ADMINISTRATIVE SUPPORT COORDINATOR/Onc note "REBECA" ADVANCE DIRECTIVE INFORMATION 10/08/2016 01/10/2017 Overview: No, Advance Directive brochure offered , patient declined. [employer] Other*[id number] 06/19/2010 05/29/2016 Overview: Study Titile: Gen[employer] Markers for Patients with Cardiovascular Disease Project # [id number] PI: Tara Purcell MD Please call [phone] with study related questions Hand Dermatitis 09/24/2007 01/10/2017 Gout 09/09/2006 10/17/2009 Dermatitis 02/07/2005 09/24/2007 Dyslipidemia, goal to be determined 05/08/2004 04/06/2009 Overview: Per Lipid Taxonomy. Vascular complications of renal artery 06/25/2002 01/10/2017 documented as of this encounter (statuses as of 08/13/2023) Immunizations Name Administration Dates Next Due COVID-19 [...] Sign Reading Time Taken Comments Blood Pressure 128/70 08/13/2023 2:24 PM EDT Pulse 66 08/13/2023 2:24 PM EDT Temperature 36.4 C (97.5 F) 08/13/2023 2:24 PM ED T Respiratory Rate 16 08/13/2023 2:24 PM EDT Oxygen Saturation - - Inhaled Oxygen Concentration - - Weight 109.8 kg (242 lb) 08/13/2023 2:24 PM EDT Height 157.5 cm (5' 2") 08/13/2023 2:24 PM EDT Body Mass Index 44.26 08/13/2023 2:24 PM EDT documented in this encounter Progress Notes * Nessa Foreman MD - 08/13/2023 2:33 PM EDT HPI: Makenna Escobar is a 77 year old female per medical problems as listed below including but not limited to type 2 diabetes mellitus, hypertension, hyperlipidemia, CKD, obesity, anxiety, GERD, chronic lower back pain right more than left, sacroiliitis, history of bilateral knee pain, follows with orthof rikis with the pain management, follows with Cardiology,who presents with: Chief Complaint Patient presents with Follow Up Patient is here for the recheck. Chart reviewed with the patient including current meds, last labs and HM. No acute event since we saw patient last time including no recent fall or injuries. Hemoglobin AIC Results: Lab Results Component Value Date/Time HEMOGLOBIN A1C - [facility] 6.4 (H) 07/17/2023 02:06 PM HEMOGLOBIN A1C - [facility] 6.5 (H) 11/14/2022 08:36 AM HEMOGLOBIN A1C - [facility] 6.2 (H) 07/11/2022 11:07 AM HEMOGLOBIN A1C - [facility] 6.4 (H) 02/24/2020 02:10 PM HEMOGLOBIN A1C - [facility] 7.7 (H) 02/26/2019 11:36 AM HEMOGLOBIN A1C - [facility] 7.3 (H) 02/10/2018 10:24 AM Discussed options of GLP 1 if Ozempic is not covered or available. Discussed Victoza inj or Rybelsus oral.pt will f/u with MTm too. Denies any chestpain/sob/palpitation/swealling in the legs. denies any cough/sob/wheezing/chestpain. Sleeps okay at night. Feels fine emotionally. No urinary s/s. Planning to get shingrix at her pharmacy. Discussed getting RSV. 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 HTN, goal below 140/90 I10 Renal artery stenosis ([facility]) I70.1 Renovascular hypertension with goal blood pressure less than 140/90 I15.0 Hx MRSA infection Z86.14 Advanced directives, counseling/discussion Z71.89 Gastroesophageal reflux disease without esophagitis K21.9 Morbid obesity with BMI of 45.0-49.9, adult ([facility]) E66.01, Z68.42 Primary open-angle glaucoma, right eye, moderate stage H40.1112 ATILIO (generalized anxiety disorder) F41.1 Hypertensive kidney disease with stage 3b chronic kidney disease (HCC) I12.9, N18.32 Chronic kidney disease, stage 3b (HCC) N18.32 Type 2 diabetes mellitus with stage 3b chronic kidney disease, without long-term current use of insulin (HCC) E11.22, N18.32 History of malignant neoplasm of endometrium Z85.42 Morbid obesity with BMI of 40.0-44.9, adult ([facility]) E66.01, Z68.41 Hypertensive heart and kidney disease with chronic diastolic congestive heart failure and stage 3a chronic kidney disease (HCC) I13.0, I50.32, N18.31 Current Outpatient Medications Medication Sig Dispense Refill VITAMIN D 2000 UNITS PO CAPS 1 CAPSULE DAILY 30 Cap 5 ASPIRIN EC 81 MG PO TBEC Take 1 Tablet by mouth daily. Acetaminophen 500 MG Oral Tablet Take 1 [...] Taking 40mg daily only..) 360 Tablet 3 ProAir HFA 108 (90 Base) MCG/ACT Inhalation Aerosol Solution Inhale 2 Puffs by mouth every 4 hours as needed for Wheezing. 18 g 3 Triamcinolone Acetonide 0.025 % External Ointment (Aristocort) USE SPARINGLY NIGHTLY FOR TWO WEEKS,THEN NEEDED. LITTLE IS EFFECTIVE 60 g 3 Ozempic (1 MG/DOSE) 2 MG/1.5ML Subcutaneous Solution Pen-injector (Semaglutide (1 MG/DOSE)) Inject 1 mg under the skin once a week. On Sundays 9 mL 1 Colchicine 0.6 MG Oral Tablet Take 1 Tablet by mouth in the morning. As needed for gout. 30 Tablet 1 Calcitriol 0.25 MCG Oral Capsule (Rocaltrol) TAKE 1 CAPSULE BY MOUTH ONCE DAILY ON SATURDAY AMD SATURDAY ONLY 24 Capsule 3 Meloxicam 15 MG Oral Tablet (Mobic) TAKE 1 TABLET BY MOUTH ONCE DAILY NEEDED FOR JOINT PAIN 30 Tablet 3 LORazepam 0.5 MG Oral Tablet (Ativan) TAKE 1 TABLET BY MOUTH THREE TIMES DAILY NEEDED FOR ANXIETY 90 Tablet 0 Atorvastatin Calcium 20 MG Oral Tablet (Lipitor) [...] NOON, AND BEFORE BEDTIME) 270 Capsule 1 traMADol HCl 50 MG Oral Tablet (Ultram) Take 1 Tablet by mouth 2 times a day as needed for Pain, Severe. 14 Tablet 0 Metoprolol Succinate ER 25 MG Oral Tablet Extended Release 24 Hour (Toprol XL) Take two tablets in AM and one tablet in evening. 90 Tablet 6 Blood Glucose Monitoring Suppl (ONETOUCH ULTRA SYSTEM) W/DEVICE KIT Use up to four times a day as directed/E11.9 1 Kit 0 ONETOUCH DELICA LANCETS 33G MISC Test up to twice daily DX E 11.9 100 Each 5 Zoster Vac Recomb Adjuvanted 50 MCG/0.5ML Intramuscular Suspension Reconstituted (Shingrix) Inject 0.5 mL into a large muscle now and repeat dose in 60 to 180 days (Patient not taking: Reported on 07/25/2023) 1 Each 1 OneTouch Ultra In Vitro [...] times a day E11.9 100 Strip 11 No current facility-administered medications for this visit. The patient's medication list was reviewed and updated as needed. Review of patient's allergies indicates: Allergen Reactions Bactrim [Sulfamethoxazole-Trimethoprim] Hallucinations, anxiety Penicillins hives Allopurinol Rash Past Medical History: Diagnosis Date Displacement of lumbar intervertebral disc without myelopathy 01/11/2010 DM type 2, goal A1c below 7 Dyslipidemia, goal LDL below 100 04/06/2009 Per Lipid Taxonomy. Endometrial cancer (HCC) History 12/19/20 ADMINISTRATIVE SUPPORT COORDINATOR/Onc note "REBECA" HTN, goal below 140/90 Intraductal papilloma of breast 11/03/2012 left Kidney disease, chronic, stage III (GFR 30-59 ml/min) ([facility]) 07/21/2007 Renal artery stenosis ([facility]) 09/02/2015 Renovascular hypertension with goal blood pressure less than 140/90 09/02/2015 Spinal stenosis of lumbar region without neurogenic claudication 01/11/2010 Vascular complications of renal artery(997.72) Social History Socioeconomic History Marital status: Spouse name: Juvenal Number of children: 2 Years of education: 12 Occupational History 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, 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, 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 Tobacco Use Smoking status: Never Smokeless tobacco: Never Vaping Use Vaping Use: Never used Substance and Sexual Activity Alcohol use: No Drug use: No Other Topics Concern Sleep Concern No Seat Belt Yes Social Determinants of Health Food Insecurity: No Food Insecurity (02/26/2019) Hunger Vital Sign Worried About Running Out of Food in the Last Year: Never true Ran Out of Food in the Last Year: Never true Family History Problem Relation Age of Onset Cancer Mother colon, uterine Stroke Mother TIA Hypertension Father Heart Disorder Father of renal failure Other (psoriasis) Father Diabetes Uncle (Unspecified) Hypertension Sister Thyroid Disorder Sister Neurological Disorder Daughter MS Heart Disorder Father Hypertension Father Allergies Daughter Neurological Disorder Daughter MS Hypertension Father Hypertension Sister Arthritis Sister Thyroid Disorder Sister Obesity Sister Hypertension Brother Diabetes Brother Cancer Mother Stroke Mother Cancer Grandmother (Maternal) 86yr breast Obesity Daughter Other (AAA) Daughter Denies FH of AAA Cancer Grandfather (Paternal) lung Heart Disorder Grandmother (Paternal) Hypertension Grandmother (Paternal) Allergies Daughter Neurological Disorder Daughter MS Allergies Daughter Obesity Daughter Hypertension Sister Arthritis Sister Thyroid Disorder Sister Obesity Sister Hypertension Brother Diabetes Brother Cancer Mother Stroke Mother Cancer Grandmother (Maternal) All system negative except as per hpi. OBJECTIVE: BP 128/70 | Pulse 66 | Temp 36.4 C (97.5 F) | Resp 16 | Ht 1.575 m (5' 2") | Wt 109.8 kg (242 lb) | BMI 44.26 kg/m | BSA 2.19 m PHYSICAL EXAM: HEENT: PERRLA, EOMI, anicteric sclera, b/l tympanic membrane is pearly white, no erythema, no pharyngeal erythema, no lymphadenopathy, neck supple CVS: RRR, no murmurs, rubs or gallops, s1 s 2normal. RESP: clear to auscultation, no wheezing or crackles ABD: soft, NT/ND EXT: trace Bl edema, cyanosis, peripheral pulses palpable bilaterally No large joint swelling, no redness, range of motion normal. Skin normal. Gait normal. Mood stable No focal weakness ASSESSMENT AND PLAN: HTN, goal below 140/90 (Primary) Well controlled. Continue all curren tmeds. Type 2 diabetes mellitus with hemoglobin A1c goal of less than 7.0% ([facility]) - Ozempic (1 MG/DOSE) 2 MG/1.5ML Subcutaneous Solution Pen-injector (Semaglutide (1 MG/DOSE)); Inject 1 mg under the skin once a week. On Sundays - PHARMACIST MEDS THERAPY MGMT REFERRAL OP Gouty arthropathy, chronic, without tophi On allopurinol. DYSLIPIDEMIA, GOAL LDL BELOW 100 Chronic kidney disease, stage 3b (HCC) Gastroesophageal reflux disease without esophagitis Advised pt to avoid caffeine, fried fatty foods, choclates, peppermints, smoking and alcohol. Exercise and weight loss emphasized. Eat dinner 3 hours prior to bed time. Morbid obesity with BMI of 45.0-49.9, adult (HCC) Morbid obesity with BMI of 40.0-44.9, adult (HCC) Diet, portion control discussed. Type 2 diabetes mellitus with stage 3b chronic kidney disease, without long-term current use of insulin (HCC) Avoid nsaids. Work on low salt, hydration. Primary open-angle glaucoma, right eye, moderate stage ATILIO (generalized anxiety disorder) Stable. Hypertensive heart and kidney disease with chronic diastolic congestive heart failure and stage 3a chronic kidney disease (HCC) As above. Compensated. On lasix 20 mg 2 pills daily. Follow Up: Return in about 6 months (around 02/12/2024) for Return with Physician. | For: Return with Physician Nessa Foreman MD documented in this encounter Nursing Notes * Ada Pelletier LPN - 08/13/2023 2:24 PM EDT The patient has been properly identified by confirmation of name and date of . Chief Complaint Patient presents with Follow Up documented in this encounter Plan of Treatment Upcoming Encounters Date Type Department Care Team (Latest Contact Info) Description 10/09/2023 1:45 PM EDT Hospital Encounter OR [facility], Operating Room [facility] [address] [place] [phone] James Crain DO [address] [place] [phone] 10/09/2023 1:45 PM EDT - 10/09/2023 2:10 PM EDT Surgery OR [facility], Operating Room [facility] [address] [place] [phone] James Crain, DO [address] [place] [phone] INJECTION SACROILIAC JOINT 01/07/2024 2:30 PM EDT Office Visit Cardiology, [facility] [address] [place] [address] Jerry Cano, DO [address] [place] [address] 02/18/2024 3:00 PM EDT Office Visit General Internal Medicine [facility] [address] [facility] [place] [address] Nessa Foreman MD [address] [facility] [place] [address] Scheduled Procedures Name Priority Associated Diagnoses Date/Ti me INJECTION SACROILIAC JOINT Inflammation of sacroiliac joint (HCC) 10/09/2023 1:45 PM EDT ROBOTIC ARTHROPLASTY KNEE TOTAL Knee osteoarthritis COLONOSCOPY FLEXIBLE PROXIMAL DIAGNOSTIC Recall Encounter for screening colonoscopy Scheduled Referrals Name Type Priority Associated Diagnoses Orde r Schedule PHARMACIST MEDS THERAPY MGMT REFERRAL OP Referral Within 30 days (routine) Type 2 diabetes mellitus with hemoglobin A1c goal of less than 7.0% (HCC) Ordered: 08/13/2023 Health Maintenance Due Date Last Done Comments Zoster Vaccines (2 of 3) 01/28/2012 12/03/2011 Depression Screening 09/06/2021 09/06/2020 COVID-19 Vaccine ( season) 2022 03/08/2022, 04/03/2021, 06/23/2020, Additional history exists Diabetic Eye Exam 09/21/2023 09/20/2022, , 06/20/2021, Additional history exists Albumin/Creatinine Ratio 2023 023, 11/23/2021, 09/11/2017, Additional history exists CKD HGB USE SMARTSET 97430 11/15/202311/14, 11/14/2022, 07/11/2022, Additional history exists GFR 01/17/2024 07/17/2023, 10/21, 03/19/2022, Additional history exists HbA1c 01/17/2024 07/17/2023, 10/21, 07/11/2022, Additional history exists Diabetic Foot Exam 01/30/2024 01/29/2023, 1 05/21/2020, 02/24/2020, Additional history exists CKD PHOS USE SMARTSET 01192 07/16/202406/21, 07/11/2022, 06/26/2021, Additional history exists DTaP,Tdap,and [...] this encounter Medical Devices Implanted Type Area Statistics Manager Device Identifier Shelf Expiration Date Model / Serial / Lot Stent [id number] Frank [id number] - [id number] Implanted:Qty: 1 on 01/29/2011 at OR [facility] Right: Renal Artery JNJ : [employer] 07/21/2012 [id number] / / [id number] Lens Intraoc 18.5 - [id number] - [id number] Implanted:Qty: 1 on 10/16/2018 by Jhonny Stanton MD at [facility] Left: Eye [employer] 02/19/2023 [id number] / [id number] / [id number] Lens Intraoc 18.0 - [id number] - [id number] Implanted:Qty: 1 on 10/28/2018 by RomyJhonny gustafson MD at OR [facility] Right: Eye [employer]CH [employer]OM[employer] 11/19/2022 [id number] / [id number] / documented as of this encounter Visit Diagnoses Diagnosis HTN, goal below 140/90- Primary Unspecified essential hypertension Type 2 diabetes mellitus with hemoglobin A1c goal of less than 7.0% (HCC) Gouty arthropathy, chronic, without tophi Chronic gouty arthropathy without mention of tophus (tophi) DYSLIPIDEMIA, GOAL LDL BELOW 100 Other and unspecified hyperlipidemia Chronic kidney disease, stage 3b (HCC) Gastroesophageal reflux disease without esophagitis Esophageal reflux Morbid obesity with BMI of 45.0-49.9, adult (HCC) Morbid obesity Morbid obesity with BMI of 40.0-44.9, adult (HCC) Morbid obesity Type 2 diabetes mellitus with stage 3b chronic kidney disease, without long-term current use of insulin (HCC) Primary open-angle glaucoma, right eye, moderate stage ATILIO (generalized anxiety disorder) Generalized anxiety disorder Hypertensive heart and kidney disease with chronic diastolic congestive heart failure and stage 3a chronic kidney disease (HCC) Inflammation of [...] Advance Directives occurred with: Patient Care Teams Professor Computer Science Relationship Specialty Start Date End Date Nessa Foreman MD [address] [place], [place] [address] PCP - General Internal Medicine 05/11/10 documented as of this encounter
--- OUTSIDE RECORDS SUMMARY | 2024-01-06 01:55 | External Medical Summary | Summary of Care ---
Author Name Unknown Organization [facility] [address] [facility] [place] [address] Phone [phone] Care Team Providers Care Director Game Name Role Phone Nessa Foreman MD Primary Care Provider + Encounter Details Date Type Department Care Team (Late st Contact Info) Description 08/09/2023 [facility] [place] [address] Nessa Foreman MD [address] [facility] [place] [address] Allergies Active Allergy Reactions Criticality Noted Date Comments Allopurinol Low 01/20/2007 Rash Sulfamethoxazole-Trimethopri m 10/06/2015 Hallucinations, anxiety Penicillins 12/24/2000 hives documented as of this encounter (statuses as of 08/09/2023) Medications Medication Sig Dispensed Refills Start Date [...] goal of less than 7.0% ([facility]) Test up to twice daily DX E [...] only., Indications: water pill, Reported on 12/03/2022 BLiNQ Mediauch Ultra In Vitro Strip (Glucose Blood)Indications:T ype 2 diabetes mellitus with hemoglobin A1c goal of less than 7.0% ([facility]) USE 1 STRIP TO CHECK GLUCOSE ONCE TO TWICE DAILY DIRECTED 200 Strip 3 01/24/2022 Active ProAir HFA 108 (90 Base) MCG/ACT Inhalation Aerosol SolutionIndications :Wheezing Inhale 2 Puffs by mouth every 4 hours as needed for Wheezing. 18 g 3 04/07/2022 Active 10-20 MediaTouch Verio w/Device Kit Use as directed . 1 Kit 1 04/18/2022 Active 10-20 MediaTouch UltraSoft Lancets Use as directed 4 times a day as needed for Hyperglycemia (high sugar). Use up to four times a day as directed 100 Each 3 04/18/2022 Active Triamcinolone Acetonide 0.025 % External Ointment (Aristocort)Indicat ions:Contact dermatitis USE SPARINGLY NIGHTLY FOR TWO WEEKS, THEN NEEDED. LITTLE IS EFFECTIVE 60 g 3 05/22/2022 Active 10-20 MediaTouch Verio In Vitro Strip (Glucose Blood) Use up to 4 times a day E11.9 100 Strip 11 05/23/2022 Active Ozempic (1 MG/DOSE) 2 MG/1.5ML Subcutaneous Solution Pen-injector (Semaglutide (1 MG/DOSE))Indication s:Type 2 diabetes mellitus with hemoglobin A1c goal of less than 7.0% ([facility]) Inject 1 mg under the skin once a week. On Sundays 9 mL 1 08/10/2022 Active Colchicine 0.6 MG Oral TabletIndications:G outy [...] in evening. 90 Tablet 6 07/25/2023 Active documented as of this encounter (statuses as of 08/09/2023) Active Problems Problem Noted Date Diagnosed Date Type 2 diabetes mellitus wit h stage 3b chronic kidney disease, without long-term current use of insulin 01/14/2023 Endometrial cancer 07/19/2022 Cancer Staging:Pathologic stage from 11/27/2016:FIGO Stage IA(pT1a, pN0, cM0) - Signed by Ronald Oliver MD on 07/20/2022 Chronic kidney disease, stage 3b 10/04/2020 Overview: [...] as of this encounter (statuses as of 08/09/2023) Resolved Problems Problem Noted Date Diagnosed Date Resolved Date ADVANCE DIRECTIVE INFORMATION 10/08/2016 01/10/2017 Overview: No, Advance Directive brochure offered , patient declined. [employer] Other*[id number] 06/19/2010 05/29/2016 Overview: Study Titile: [employer] Markers for Patients with Cardiovascular Disease Project # [id number] PI: Tara Purcell MD Please call [phone] with study related questions Hand Dermatitis 09/24/2007 01/10/2017 Gout 09/09/2006 10/17/2009 Dermatitis 02/07/2005 09/24/2007 Dyslipidemia, goal to be determined 05/08/2004 04/06/2009 Overview: Per Lipid Taxonomy. Vascular complications of renal artery 06/25/2002 01/10/2017 documented as of this encounter (statuses as of 08/09/2023) Immunizations Name Administration Dates Next Due COVID-19 [...] Department Care Team (Latest Contact Info) Description 08/13/2023 2:40 PM EDT Office Visit General Internal Medicine [facility] [address] [facility] [place] [address] Nessa Foreman MD [address] [facility] [place] [address] 10/09/2023 1:45 PM EDT Hospital Encounter OR [facility] Operating [facility] [address] [place] [phone] James Crain DO [address] [place] [phone] 10/09/2023 1:45 PM EDT - 10/09/2023 2:10 PM EDT Surgery OR [facility] Operating [facility] [address] [place] [phone] James Crain, DO [address] [place] [phone] INJECTION SACROILIAC JOINT 01/07/2024 2:30 PM EDT Office Visit Cardiology, [facility] [address] [place] [phone] Jerry Cano, DO [address] [place] [phone] Scheduled Procedures Name Priority Associated Diagnoses Date/Ti [...] Additional history exists CKD HGB USE SMARTSET 31728 11/15/202311/14, 11/14/2022, 07/11/2022, Additional history exists GFR 01/17/2024 07/17/2023, 10/21, 03/19/2022, Additional history exists HbA1c 01/17/2024 07/17/2023, 10/21, 07/11/2022, Additional history exists Diabetic Foot Exam 01/30/2024 01/29/2023, 1 05/21/2020, 02/24/2020, Additional history exists CKD PHOS USE SMARTSET 51645 07/16/202406/21, 07/11/2022, 06/26/2021, Additional history exists DTaP,Tdap,and [...] this encounter Medical Devices Implanted Type Area Drawing Machine Operator Device Identifier Shelf Expiration Date Model / Serial / Lot Stent [id number] - [id number] Implanted:Qty: 1 on 01/29/2011 at OR [facility] [place] Right: Renal Artery JNJ : [employer] 07/21/2012 [id number] / / [id number] Lens Intraoc 18.5 - [id number] - [id number] Implanted:Qty: 1 on 10/16/2018 by Jhonny Stanton MD at OR [facility] Left: Eye [employer]OMB 02/19/2023 [id number] / [id number] / [id number] Lens Intraoc 18.0 - [id number] - [id number] Implanted:Qty: 1 on 10/28/2018 by Jhonny Stanton MD at OR [facility] Right: Eye [employer]OMB 11/19/2022 [id number] / [id number] / documented as of this encounter Procedures Procedure Name Priority Date/Time Associated Diagnosis Comments MAMMOGRAM SCREENING BILATERAL Routine 08/08/2023 documented in this encounter Results * MAMMOGRAM SCREENING BILATERAL (08/08/2023) Anatomical Region Laterality Modality Breast Bilateral Other 08/08/2023 Nessa Froeman MD RAD MAMMOGRAPHY documented in this encounter Advance Directives Latest [...] Directives occurred with: Patient Care Teams Director Game Relationship Specialty Start Date End Date Nessa Foreman MD [address] [facility] [place] [address] PCP - General Internal Medicine 05/11/10 documented as of this encounter
[2024-01-06] MEDS: SODIUM CHLORIDE 0.9% 500 ML IV SCH ×2 (02:00→06:07)
[2024-01-06] MEDS: ACETAMINOPHEN 1,000 MG/100 ML VIAL IV STA (02:09)
[2024-01-06] MEDS ORDERED: VANCOMYCIN CONSULT ACTIVE PRN (02:10)
--- NOTE | 2024-01-06 02:17 | Emergency Department Note ---
History of Present Illness General Chief complaint: Back Injury/Pain Stated complaint: BACK PAIN Time Seen by Provider: 01/06/24 01:42 History of Present Illness This 78-year-old female presents the ER via EMS with spouse complaining of chest pain, abdominal pain, nausea, cough and back pain for the past day. Patient states she does not feel well. She has been taking extra Ativan and Ultram. She did not realize she had a fever. Patient denies vomiting, diarrhea, urinary symptoms. states she has not been eating or drinking much for the past day. He thinks that she is more confused than baseline and was concerned and called 911. He states no history of heart failure heart attack or stroke. She does not smoke. She follows with the [facility] system. I did review their EMR online from their phone while is waiting for case management to pull the records from [facility]. Home Medications Medication Instructions Recorded Confirmed Type acetaminophen 500 mg tablet 1,000 mg PO Q6H PRN Pain 01/22/19 10/01/19 History (Tylenol Extra Strength) amlodipine 5 mg tablet 5 mg PO QAM 01/22/19 10/01/19 History aspirin 81 mg tablet,delayed 81 mg PO QAM 01/22/19 10/01/19 History release (Aspir-) atorvastatin 20 mg tablet 20 mg PO HS 01/22/19 10/01/19 History calcitriol 0.25 mcg capsule 0.25 mcg PO 2XWK 01/22/19 10/01/19 History (Rocaltrol) cholecalciferol (vitamin D3) 50 2,000 unit PO QAM 01/22/19 10/01/19 History mcg (2,000 unit) capsule (Vitamin D3) colchicine 0.6 mg capsule 0.6 mg PO QAM 01/22/19 10/01/19 History (Mitigare) febuxostat 40 mg tablet (Uloric) 40 mg PO QAM 01/22/19 10/01/19 History furosemide 20 mg tablet 40 - 60 mg PO QAM 01/22/19 10/01/19 History gabapentin 300 mg capsule 300 mg PO TID 01/22/19 10/01/19 History glipizide 2.5 mg tablet, extended 7.5 mg PO QAM 01/22/19 10/01/19 History release 24 hr lorazepam 0.5 mg tablet 0.5 mg PO HS PRN Sleep 10/03/19 06/11/20 History losartan 100 mg tablet 100 mg PO QAM 01/22/19 10/01/19 History meloxicam 15 mg tablet (Mobic) 15 mg PO DAILY PRN Pain 01/22/19 10/01/19 History metoprolol succinate 25 mg 25 mg PO BID 01/22/19 10/01/19 History tablet,extended release 24 hr omeprazole 20 mg capsule,delayed 20 mg PO DAILY PRN Acid Reflux 01/22/19 10/01/19 History release semaglutide 0.25 mg or 0.5 mg (2 0.25 mg subcut WK 01/22/19 10/01/19 History mg/1.5 mL) subcutaneous pen injector (Ozempic) oxycodone-acetaminophen 5 mg-325 1 tab PO Q4H PRN pain #10 tabs 02/02/19 10/01/19 Rx mg tablet (Percocet) tramadol 50 mg tablet 50 mg PO Q8H PRN pain #14 tabs 04/20/21 Rx Allergies Allergy/AdvReac Type Severity Reaction Status Date / Time allopurinol Allergy Mild RASH Verified 10/01/19 09:44 Penicillins Allergy Mild HIVES Verified 10/01/19 09:44 Bactrim Allergy Unknown ANXIETY Verified 09/26/17 08:37 AND HALLUCINATION sulfamethoxazole AdvReac Intermediate ANXIETY Verified 03/23/21 20:14 AND HALLUCINATION trimethoprim AdvReac Intermediate ANXIETY Verified 03/23/21 20:14 AND HALLUCINATION Past Med/Surg History Problem List (Updated 01/06/24 @ 03:34 by Tara Hilton PA-C) Hypomagnesemia (Acute) CAP (community acquired pneumonia) (Acute) Atrial fibrillation with rapid ventricular response (Acute) Sepsis (Acute) Degenerative arthritis of knee, bilateral Hypertension GERD (gastroesophageal reflux disease) Diabetes Hyperlipidemia MRSA infection Encounter for pre-operative examination Medical History (Updated 01/06/24 @ 03:34 by Tara Hilton PA-C) Intraductal papilloma of breast left Morbid obesity Renal artery stenosis status post bilateral renal artery stenting Cancer uterine s/p hysterectomy (no chemo/XRT) Chronic back pain Gout Chronic kidney disease stage III (follows with Dr. Okeefe) GERD (gastroesophageal reflux disease) controlled Diabetes mellitus, type 2 Hypertension Hyperlipidemia Surgical History History of renal stent RIGHT/LEFT History of cataract surgery R/L History of hysterectomy TOTAL History of bilateral tubal ligation History of dilatation and curettage X 2 History of hand surgery RIGHT CYST History of cholecystectomy Fusion of spine LUMBAR Family History Brother Family history of diabetes mellitus Mother Family hx of colon cancer Social History Smoking Status: Never smoker Second Hand Exposure: Yes (SPOUSE SMOKES); Do You Dip or Chew Tobacco: No; Hx Alcohol Use: No Hx Substance Use: No Preferred Language: [place]araguan Communication Ability: Effective Duty Engineer Required: No Beliefs That Will Affect Care: None Current Living Situation: Spouse Feels Safe at Home: Yes Assistive Devices: Cane and Glasses Review of Systems A total of 10 systems reviewed and were otherwise negative Physical Exam Vital Signs Vital Signs - 24 hr 01/06/24 01:48 01/06/24 01:48 01/06/24 02:08 Temperature 38.9 C H Temperature Source Rectal Pulse Rate 147 H 155 H Pulse Rate [Apical] Respiratory Rate 22 Respiratory Effort / Characteristics Non-Labored Spontaneous Respiratory Depth Normal Blood Pressure [Right Arm] Blood Pressure Mean [Right Arm] Blood Pressure Position [Right Arm] Pulse Oximetry 92 78 L Oxygen Delivery Method Nasal Cannula Room Air Oxygen Flow Rate 5 Sepsis Recent Fever Within 48 Hours Yes Sepsis New/Unexplained Change in Mental Status Yes Sepsis Action Taken by Nursing Physician Notified 01/06/24 02:13 01/06/24 02:58 Temperature 38.9 C H Temperature Source Rectal Pulse Rate Pulse Rate [Apical] 123 H Respiratory Rate 20 Respiratory Effort / Characteristics Respiratory Depth Blood Pressure [Right Arm] 139/88 Blood Pressure Mean [Right Arm] 105 Blood Pressure Position [Right Arm] Semi-fowlers Pulse Oximetry 92 Oxygen Delivery Method Nasal Cannula Oxygen Flow Rate 5 Sepsis Recent Fever Within 48 Hours Sepsis New/Unexplained Change in Mental Status Sepsis Action Taken by Nursing VITALS: Vitals are noted on the nurse's note and reviewed by myself. Vital signs rectal temp 103. GENERAL: Elderly female following commands dehydrated appearing SKIN: The skin was without rashes, erythema, edema, or bruising. There is no tenting of the skin. Capillary reflex less than 2 seconds. HEAD: Normocephalic atraumatic. EARS: External auditory canals clear EYES: Pupils equal round and reactive to light and accommodation. Conjunctivae without injection, sclerae without icterus. Extraocular movements intact. NOSE: Patent, no discharge. MOUTH: Mucous membranes moist. Pharynx without erythema or exudate. Uvula midline. Airway patent. Tongue does not deviate. NECK: Supple without nuchal rigidity. No lymphadenopathy. No thyromegaly. Cervical spine is nontender. No JVD. HEART: Tachycardic irregularly irregular with no history of A-fib LUNGS: Clear to auscultation bilaterally without wheezes, rales or rhonchi. No retractions or accessory muscle use. ABDOMEN: Positive bowel sounds x 4. Normal tympanic percussion. Soft, nontender, without masses or organomegaly. Ordoñez sign negative. No guarding or rebound tenderness. No CVA tenderness MUSCULOSKELETAL: No muscle atrophy, erythema, or edema noted. Patient is able to move all extremities and follow commands. NEURO: Patient was alert and oriented to person place Normal sensation to light and sharp touch. Cranial nerves II through XII grossly intact. No prior drift. Cerebellar exam intact. No focal neurological deficits. Course Administered Medications Discontinued Medications Diltiazem HCl (Diltiazem Hcl 5 Mg/Ml 5 Ml Vial) 10 mg IV NOW STA Stop: 01/06/24 01:49 Last Admin: 01/06/24 01:54 Dose: 10 mg Documented By: MATTI Co-signed By: Diltiazem HCl (Diltiazem Hcl 5 Mg/Ml 5 Ml Vial) 10 mg IV NOW STA Stop: 01/06/24 02:00 Last Admin: 01/06/24 02:37 Dose: Not Given Documented By: MATTI Sodium Chloride (Nss) 500 mls @ 999 mls/hr IV .Q31M VAN Stop: 01/06/24 02:30 Last Infusion: 01/06/24 02:43 Dose: Infused Documented By: Admin: 01/06/24 02:00 Dose: 999 mls/hr Documented By: MATTI Acetaminophen (Ofirmev) 1,000 mg in 100 mls @ 400 mls/hr IV NOW STA Stop: 01/06/24 02:14 Last Infusion: 01/06/24 02:43 Dose: Infused Documented By: Admin: 01/06/24 02:09 Dose: 400 mls/hr Documented By: MATTI Sodium Chloride (Nss) 1,000 mls @ 999 mls/hr IV .Q1H1M ONE Stop: 01/06/24 03:01 Last Admin: 01/06/24 02:48 Dose: 999 mls/hr Documented By: MATTI Ceftriaxone Sodium (Rocephin) 2,000 mg in 50 mls @ 100 mls/hr IV NOW STA Stop: 01/06/24 02:33 Last Admin: 01/06/24 03:15 Dose: Not Given Documented By: MATTI Cefepime HCl (Maxipime) 2,000 mg in 20 mls @ 5 mls/min IV NOW STA; Protocol Stop: 01/06/24 02:12 Last Admin: 01/06/24 02:54 Dose: 5 mls/min Documented By: MATTI Ioversol (Optiray 320 125ml) 125 ml IV ONCE ONE Stop: 01/06/24 02:21 Last Admin: 01/06/24 02:21 Dose: 118 ml Documented By: FARIDEH Critical Care Time Critical Care Time: Yes Total Critical Care Time: 65 I have personally spent 65 minutes of critical care time in the direct management of this patient. This includes bedside care, interpretation of diagnostic studies, and testing, discussion with consultants, patient, and family members, and other required patient management activities. This 65 minutes is in excess of all separately billable procedures. Medical Decision Making Medical Records Attestation: I reviewed the patient's medical records. Home Medications Current Medication List: was personally reviewed by me Laboratory Data Attestation: I reviewed the patient's lab results. 01/06/24 01:50 01/06/24 01:50 Lab Results 01/06/24 01/06/24 01/06/24 Range/Units 01:48 01:50 02:20 WBC 28.34 H (4.8-10.8) K/ul RBC 4.39 (4.20-5.40) M/uL Hgb 13.8 (12.0-16.0) g/dl Hct 41.5 (37.0-47.0) % MCV 94.5 (80.0-100.0) fL MCH 31.4 (25.0-34.0) pg MCHC 33.3 (32.0-36.0) g/dL RDW Std Deviation 48.5 H (36.4-46.3) fL RDW Coeff of Monse 13.9 (11.5-14.5) % Plt Count 274 (130-400) K/uL MPV 9.9 (9.4-12.4) fL Immature Gran % (Auto) 1.7 % Neut % (Auto) 76.4 % Lymph % (Auto) 2.1 % [place] % (Auto) 6.3 % Eos % (Auto) 13.1 % Baso % (Auto) 0.4 % Neut # (Auto) 21.67 H (1.40-6.50) K/uL Lymph # (Auto) 0.60 L (1.20-3.40) K/uL [place] # (Auto) 1.79 H (0.11-0.59) K/uL Eos # (Auto) 3.70 H (0.00-0.50) K/uL Baso # (Auto) 0.11 (0.00-0.20) K/uL Immature Gran # (Auto) 0.47 H (0.01-0.20) K/uL VBG pH (7.36-7.41) VBG pCO2 (38-50) mmHg VBG pO2 mmHg VBG HCO3 mmol/L VBG O2 Saturation % VBG Base Excess mEq/L Sodium 137 (136-145) mmol/L Potassium 3.5 (3.5-5.1) mmol/L Chloride 99 (98-107) mmol/L Carbon Dioxide 28 (21-32) mmol/L Anion Gap 10 (3-11) BUN 25 H (6-23) mg/dl Creatinine 1.25 H (0.6-1.2) mg/dl Est Cr Clr Drug Dosing 51.9 ml/min Est GFR ( Amer) 47.7 ml/min Est GFR (Non-Af Amer) 41.2 ml/min BUN/Creatinine Ratio 20.0 (10-20) Glucose 207 H (70-99(Fasting)) mg/dl POC Glucose 226 H (70-99) mg/dl Lactate (0.4-2.0) mmol/L Calcium 9.7 (8.6-10.3) mg/dl Magnesium 1.5 L (1.7-2.4) mg/dl Total Bilirubin 1.5 H (0.2-1.0) mg/dl AST 18 (13-39) U/L ALT 14 (7-52) U/L Alkaline Phosphatase 82 (34-104) U/L Total Creatine Kinase 329 H (26-192) U/L Troponin I High Sens 21.3 H (0-14) pg/ml Total Protein 6.8 (6.0-8.3) gm/dl Albumin 4.1 (3.4-5.0) gm/dl Globulin 2.7 (2.5-4.0) gm/dl Albumin/Globulin Ratio 1.5 (0.9-2) Procalcitonin 2.66 H (0-0.5) ng/ml TSH 1.834 (0.300-4.500) uIu/ml Urine Color Dark Yellow Urine Appearance Cloudy A (Clear) Urine pH 5.5 (4.5-7.5) Ur Specific [place] 1.022 (1.000-1.030) Urine Protein 4+ H (Negative) Urine Glucose (UA) Negative (Negative) Urine Ketones Trace H (Negative) Urine Blood 2+ H (Negative) Urine Nitrite Negative (Negative) Urine Bilirubin Negative (Negative) Urine Urobilinogen Negative (Negative) Ur Leukocyte Esterase Negative (Negative) Urine WBC (Auto) 0-5 (0-5) /hpf Urine RBC (Auto) 0-2 (0-2) /hpf U Hyaline Cast (Auto) 6-10 H (0-2) /lpf U Epithel Cells (Auto) 3-5 H (0-2) /hpf Urine Bacteria (Auto) None Seen (None Seen) Urine Mucus Present A (None Prsent) 01/06/24 Range/Units 02:57 WBC (4.8-10.8) K/ul RBC (4.20-5.40) M/uL Hgb (12.0-16.0) g/dl Hct (37.0-47.0) % MCV (80.0-100.0) fL MCH (25.0-34.0) pg MCHC (32.0-36.0) g/dL RDW Std Deviation (36.4-46.3) fL RDW Coeff of Monse (11.5-14.5) % Plt Count (130-400) K/uL MPV (9.4-12.4) fL Immature Gran % (Auto) % Neut % (Auto) % Lymph % (Auto) % [place] % (Auto) % Eos % (Auto) % Baso % (Auto) % Neut # (Auto) (1.40-6.50) K/uL Lymph # (Auto) (1.20-3.40) K/uL [place] # (Auto) (0.11-0.59) K/uL Eos # (Auto) (0.00-0.50) K/uL Baso # (Auto) (0.00-0.20) K/uL Immature Gran # (Auto) (0.01-0.20) K/uL VBG pH 7.38 (7.36-7.41) VBG pCO2 45 (38-50) mmHg VBG pO2 44 mmHg VBG HCO3 27 mmol/L VBG O2 Saturation 76.4 % VBG Base Excess 1.0 mEq/L Sodium (136-145) mmol/L Potassium (3.5-5.1) mmol/L Chloride (98-107) mmol/L Carbon Dioxide (21-32) mmol/L Anion Gap (3-11) BUN (6-23) mg/dl Creatinine (0.6-1.2) mg/dl Est Cr Clr Drug Dosing ml/min Est GFR ( Amer) ml/min Est GFR (Non-Af Amer) ml/min BUN/Creatinine Ratio (10-20) Glucose (70-99(Fasting)) mg/dl POC Glucose (70-99) mg/dl Lactate 2.1 H* (0.4-2.0) mmol/L Calcium (8.6-10.3) mg/dl Magnesium (1.7-2.4) mg/dl Total Bilirubin (0.2-1.0) mg/dl AST (13-39) U/L ALT (7-52) U/L Alkaline Phosphatase (34-104) U/L Total Creatine Kinase (26-192) U/L Troponin I High Sens (0-14) pg/ml Total Protein (6.0-8.3) gm/dl Albumin (3.4-5.0) gm/dl Globulin (2.5-4.0) gm/dl Albumin/Globulin Ratio (0.9-2) Procalcitonin (0-0.5) ng/ml TSH (0.300-4.500) uIu/ml Urine Color Urine Appearance (Clear) Urine pH (4.5-7.5) Ur Specific [place] (1.000-1.030) Urine Protein (Negative) Urine Glucose (UA) (Negative) Urine Ketones (Negative) Urine Blood (Negative) Urine Nitrite (Negative) Urine Bilirubin (Negative) Urine Urobilinogen (Negative) Ur Leukocyte Esterase (Negative) Urine WBC (Auto) (0-5) /hpf Urine RBC (Auto) (0-2) /hpf U Hyaline Cast (Auto) (0-2) /lpf U Epithel Cells (Auto) (0-2) /hpf Urine Bacteria (Auto) (None Seen) Urine Mucus (None Prsent) Imaging Data Attestation: I personally reviewed and interpreted this imaging study as follows: Radiologist's Impression: Head CT 01/06/24 01:48 Exam(s): CT HEAD Without Contrast EXAM: CT Head Without Intravenous Contrast CLINICAL HISTORY: ams. TECHNIQUE: Axial computed tomography images of the head/brain without intravenous contrast. CTDI is 34.93 mGy and DLP is 624.41 mGy-cm. Automated exposure control was utilized for the study. A dose lowering technique was utilized adhering to the principles of ALARA. COMPARISON: No relevant prior studies available. FINDINGS: Brain: No intracranial hemorrhage. No significant mass effect. No evidence for cortical infarct. A calcified lesion extends superiorly from the anterior cranial fossa, measuring 12 x 7 x 8 mm. No evidence for mass effect on the adjacent inferior left frontal lobe. Mild periventricular deep white matter hypodense changes. Ventricles: Unremarkable. No ventriculomegaly. Bones/joints: Unremarkable. No acute fracture. Soft tissues: Unremarkable. Vasculature: Prominent atherosclerotic calcification of the cavernous internal carotid arteries. Sinuses: Small retention cyst or polyp in the posterior right maxillary sinus. The remaining paranasal sinuses are unremarkable. Mastoid air cells: Unremarkable as visualized. No mastoid effusion. IMPRESSION: 1. No acute intracranial process identified. 2. Incidental calcified meningioma involving the left anterior cranial fossa. No significant mass effect on the adjacent parenchyma. Electronically signed by: Wellington Block MD 01/06/24 02:55 AM Abdomen/Pelvis CT 01/06/24 01:55 Exam(s): CT ABDOMEN + PELVIS With Contrast IV Amt: 118 ML OPTIRAY 320 EXAM: CT Abdomen and Pelvis With Intravenous Contrast CLINICAL HISTORY: mid abd pain. TECHNIQUE: Axial computed tomography images of the abdomen and pelvis with intravenous contrast. CTDI is 28.14 mGy and DLP is 1499.82 mGy-cm. Automated exposure control was utilized for the study. A dose lowering technique was utilized adhering to the principles of ALARA. CONTRAST: Patient received 118 ML OPTIRAY 320 of IV contrast COMPARISON: CT abdomen and pelvis without contrast dated 04/20/2021 FINDINGS: Limitations: There is respiratory artifact, which degrades image quality on multiple image slices. Lung bases: Subsegmental changes in the posterior lower lobes. No consolidation. Heart: Moderate LAD calcification. The cardiac chambers are normal in size. ABDOMEN: Liver: Interval enlargement of the liver with suggestion of interval hypertrophy of the left lobe. Gallbladder and bile ducts: Cholecystectomy. Common bile duct is prominent measuring 12 cm in diameter. No common bile duct stone is seen. Pancreas: The pancreas appears slightly atrophic but demonstrates normal enhancement. No ductal dilation. Spleen: Unremarkable. No splenomegaly. Adrenals: Unremarkable. No mass. Kidneys and ureters: The kidneys demonstrate similar contours with prominent cortical atrophy in the lateral midpole of the left kidney. No hydronephrosis or obstructing nephrolithiasis. Innumerable cortical cysts noted bilaterally with the largest cyst inferolaterally on the right measuring 5.0 cm. The 2 cm cyst involving the anterior midpole of the right kidney is complex and somewhat ill-defined. Similar mild perinephric fat stranding. Stomach and bowel: There is a duodenal diverticulum noted adjacent to the ampulla. The stomach is decompressed. No evidence for bowel obstruction. No asymmetric bowel mucosal abnormality. Mild stool burden. No diverticulitis. PELVIS: Appendix: Incidental normal caliber appendix noted posterior to the cecum. Bladder: The bladder is decompressed with a Bob catheter in position. Reproductive: Status post hysterectomy. ABDOMEN and PELVIS: Intraperitoneal space: Unremarkable. No free air. No significant fluid collection. Bones/joints: No acute fracture. No dislocation. Soft tissues: Unremarkable. Vasculature: The portal vein is patent. Atherosclerotic calcification of the abdominal aorta. No dissection or aneurysm. Incidental bilateral renal stents noted. Lymph nodes: Unremarkable. No enlarged lymph nodes. IMPRESSION: 1. Common bile duct is prominent measuring 12 cm in diameter. This is likely related to cholecystectomy. Please correlate with bilirubin levels. 2. There is a duodenal diverticulum noted adjacent to the ampulla. This is only significant if there is planned endoscopic cannulation of the common bile duct. 3. No evidence for bowel obstruction. No asymmetric bowel mucosal abnormality. Mild stool burden. No diverticulitis. No free intraperitoneal fluid or pneumoperitoneum. 4. Innumerable cortical cysts noted involving both kidneys. The cyst involving the anterior midpole right kidney (series 8; image 45) is indeterminate. A complex cystic or partially solid processes not entirely excluded. No hydronephrosis or obstructive nephrolithiasis. 5. Subsegmental changes in the posterior costophrenic margins is presumed dependent subsegmental atelectasis. Electronically signed by: Wellington Block MD 01/06/24 03:03 AM Chest CTA 01/06/24 01:55 Exam(s): CTA CHEST IV Amt: 118 ML OPTIRAY 320 EXAM: CT Angiography Chest With Intravenous Contrast CLINICAL HISTORY: Evaluate for potential PE. TECHNIQUE: Axial computed tomographic angiography images of the chest with intravenous contrast. CTDI is 28.14 mGy and DLP is 1499.82 mGy-cm. Automated exposure control was utilized for the study. A dose lowering technique was utilized adhering to the principles of ALARA. MIP reconstructed images were created and reviewed. COMPARISON: No relevant prior studies available. FINDINGS: Limitations: There is respiratory artifact, which degrades image quality on multiple image slices. Pulmonary arteries: Accounting for respiratory artifact, there is no definite evidence for pulmonary embolism. Aorta: The thoracic aorta is normal in caliber without dissection or aneurysm. Lungs: Subsegmental changes noted involving the inferior lingular segments and posterior lower lobes. No mass. No consolidation. Pleural space: Unremarkable. No significant effusion. No pneumothorax. Heart: The cardiac chambers are normal in caliber. The RV/LV ratio is 0.78. No pericardial effusion. Moderate LAD calcification. Bones/joints: No acute fracture. No dislocation. Soft tissues: Unremarkable. Lymph nodes: Unremarkable. No enlarged lymph nodes. IMPRESSION: 1. Accounting for respiratory artifact, there is no definite evidence for pulmonary embolism. No CT evidence for right heart strain. 2. Subsegmental changes noted involving the inferior lingular segments and posterior lower lobes. Favor dependent atelectasis over subtle infection. No pleural effusion or pneumothorax. Electronically signed by: Wellington Block MD 01/06/24 03:06 AM MDM Narrative Prior records/ancillary studies reviewed. Triage Nursing notes reviewed. Additional history obtained from family. The patient's history was concerning for chest pain, abdominal pain not feeling well and increased confusion. Differential diagnosis: Etiologies such as sepsis, UTI, pneumonia, metabolic, electrolyte abnormalities, cardiac sources, intracerebral event, toxicologic, neurologic, as well as others were entertained. Physical examination: As above. Pertinent findings were febrile. Vital signs reviewed and revealed febrile. ER treatment provided: IV fluid resuscitation with Normal saline solution, 2L bolus per ideal body weight. Protonix was ordered, Tylenol was ordered for the fever Blood and urine cultures Antibiotics: Cefepime and vancomycin. Patient has a penicillin allergy Cardizem was given as no fever was documented by nursing originally and temperature was documented at 36.5 Procedures: Bob catheter was placed and urine dip negative for infection Heparin with bolus was ordered for the new onset A-fib with RVR which improved with hydration An order was placed for continuous cardiac monitoring. The monitor shows a rate of 60-1 80 with a A-fib rhythm per my interpretation. On reassessment the patient vital signs improved. Diagnostics interpretation by me: ECG: Ordered for chest pain EKG: Irregularly irregular poor baseline impression A-fib with RVR independently interpreted by myself The labs Independently Interpreted by myself revealed severe leukocytosis on CBC. Chemistry panel revealed creatinine 1.25. Low magnesium and this was replaced. Cardiac enzymes were mildly elevated. I-STAT was reviewed and patient was sent for CAT scan Serum Lactate measurement was 2.1. Procalcitonin was 2.66, euthyroid. Blood and urine cultures are pending. Imaging studies: Chest xray revealed possible pneumonia per my independent interpretation. CTs reviewed and read by radiology as above CURB Score: Confusion: 1 Urea (BUN > 19): 1 Respiratory Rate (>30/min): 0 Blood Pressure: Diastolic <60 or Systolic <90 0 Age (>= 65) 1 Total (0-1 low risk, 2-5 high risk): 3 Consultation: A consultation was placed with the hospitalist. The case was discussed and diagnostics were reviewed. The patient was evaluated in the ER for further treatment. Exam and history seem consistent with sepsis most likely from pneumonia. Patient initially came in for back pain. Patient initially had an oral temperature that was normal but I did ask a rectal temp and patient's rectal temp was 103. Septic protocol was implemented. She was given 2 L normal saline per ideal body weight. She was given cefepime and vancomycin as she has a penicillin allergy. Scans were reviewed and read by radiology as above. Heparin was ordered for the new onset A-fib with RVR. Heart rate improved with fluids and fever reduction. She was reassessed multiple times. Magnesium was replaced. Medicine is consulted case discussed. Patient will be bedded to the medical service. The chart was completed utilizing [employer] Speech voice recognition software. Grammatical errors, random word insertions, pronoun errors, and incomplete sentences are an occassional consequence of this system due to software limitations, ambient noise, and hardware issues. Any formal questions or concerns about the content, text, or information contained within the body of this dictation should be directly addressed to the physician occupational therapy assistant for clarification. Impression & Plan Sepsis, Atrial fibrillation with rapid ventricular response, CAP (community acquired pneumonia), Hypomagnesemia Discharge Plan Visit Data Chief Complaint: Back Injury/Pain Stated Complaint: BACK PAIN ED Provider: Desmond Walker ED Midlevel Provider: Tara Hilton Discharge Problem: Sepsis, Atrial fibrillation with rapid ventricular response, CAP (community acquired pneumonia), Hypomagnesemia Patient Disposition: Admitted As Inpatient Condition: Fair Forms Stand Alone Forms: My [facility] Prescriptions Prescriptions: No Action atorvastatin 20 mg Tablet 20 mg PO HS amlodipine 5 mg Tablet 5 mg PO QAM aspirin [Aspir-81] 81 mg Tablet,Delayed Release (Dr/Ec) 81 mg PO QAM acetaminophen [Tylenol Extra Strength] 500 mg Tablet 1,000 mg PO Q6H PRN (Reason: Pain) gabapentin 300 mg Capsule 300 mg PO TID furosemide 20 mg Tablet 40 - 60 mg PO QAM calcitriol [Rocaltrol] 0.25 mcg Capsule 0.25 mcg PO 2XWK Rx Instructions: Saturday AM cholecalciferol (vitamin D3) [Vitamin D3] 2,000 unit Capsule 2,000 unit PO QAM glipizide 2.5 mg Tablet Extended Release 24hr 7.5 mg PO QAM meloxicam [Mobic] 15 mg Tablet 15 mg PO DAILY PRN (Reason: Pain) losartan 100 mg Tablet 100 mg PO QAM omeprazole 20 mg Capsule,Delayed Release(Dr/Ec) 20 mg PO DAILY PRN (Reason: Acid Reflux) metoprolol succinate 25 mg Tablet Extended Release 24 Hr 25 mg PO BID lorazepam 0.5 mg Tablet 0.5 mg PO HS PRN (Reason: Sleep) Ozempic 0.25 mg or 0.5 mg(2 mg/1.5 mL) Pen Injector 0.25 mg SUBCUT WK Rx Instructions: SUNDAYS febuxostat [Uloric] 40 mg Tablet 40 mg PO QAM colchicine [Mitigare] 0.6 mg Capsule 0.6 mg PO QAM oxycodone-acetaminophen [Percocet] 5-325 mg Tablet 1 tab PO Q4H PRN (Reason: pain) Qty: 10 0RF tramadol 50 mg tablet 50 mg PO Q8H PRN (Reason: pain) Qty: 14 0RF Referrals Referrals: Nessa Foreman MD [Primary Care Provider] - Discharge Problem: Sepsis Qualifiers: Sepsis type: sepsis due to unspecified organism Sepsis acute organ dysfunction status: without acute organ dysfunction Qualified Code(s): A41.9 - Sepsis, unspecified organism
[2024-01-06 02:21] LABS: Albumin Globulin Ratio 1.5 (0.9-2); Albumin Level 4.1 gm/dl (3.4-5.0); Bilirubin,Total 1.5 mg/dl (0.2-1.0); Calcium 9.7 mg/dl (8.6-10.3); Creatinine Clr Calc Pharmacy 51.9 ml/min; Est GFR (African American) 47.7 ml/min; Est GFR (Non-African American) 41.2 ml/min; Globulin 2.7 gm/dl (2.5-4.0); Magnesium 1.5 mg/dl (1.7-2.4); Potassium 3.5 mmol/L (3.5-5.1); Total Protein 6.8 gm/dl (6.0-8.3)
[2024-01-06] MEDS: OPTIRAY 320 125ml IV ONE (02:21)
[2024-01-06 02:26] LABS: Troponin I High Sensitivity 21.3 pg/ml (0-14)
[2024-01-06 02:31] LABS: Basophils # (auto) 0.11 K/uL (0.00-0.20); Basophils % (auto) 0.4 %; Eosinophils % (auto) 13.1 %; Hematocrit (blood only) 41.5 % (37.0-47.0); Hemoglobin 13.8 g/dl (12.0-16.0); Immature Granulocytes # (auto) 0.47 K/uL (0.01-0.20); Immature Granulocytes % (auto) 1.7 %; Lymphocytes % (auto) 2.1 %; Mean Corpuscular Hemoglobin 31.4 pg (25.0-34.0); Mean Corpuscular Hgb Conc 33.3 g/dL (32.0-36.0); Mean Corpuscular Volume 94.5 fL (80.0-100.0); Mean Platelet Volume 9.9 fL (9.4-12.4); Monocytes # (auto) 1.79 K/uL (0.11-0.59); Monocytes % (auto) 6.3 %; Neutrophils # (auto) 21.67 K/uL (1.40-6.50); Neutrophils % (auto) 76.4 %; Platelet Count 274 K/uL (130-400); RDW Coefficient of Variation 13.9 % (11.5-14.5); RDW Standard Deviation 48.5 fL (36.4-46.3); Red Blood Count 4.39 M/uL (4.20-5.40); White Blood Count 28.34 K/ul (4.8-10.8)
[2024-01-06 02:36] LABS: Thyroid Stimulating Hormone 1.834 uIu/ml (0.300-4.500)
[2024-01-06 02:40] LABS: Appearance Urine Cloudy (Clear); Bacteria Urine Automated None Seen (None Seen); Bilirubin Urine Negative (Negative); Blood Urine 2+ (Negative); Color Urine Dark Yellow; Glucose Urine UA Negative (Negative); Ketones Urine Trace (Negative); Leukocyte Esterase Urine Negative (Negative); Mucus Urine Present (None Prsent); Nitrite Urine Negative (Negative); Protein Urine 4+ (Negative); RBC Urine Automated 0-2 /hpf (0-2); Specific Gravity Urine 1.022 (1.000-1.030); Urobilinogen Urine Negative (Negative); WBC Urine Automated 0-5 /hpf (0-5); pH Urine 5.5 (4.5-7.5)
[2024-01-06] MEDS: SODIUM CHLORIDE 0.9% 1,000 ML IV ONE (02:48)
[2024-01-06] MEDS: CEFEPIME 2,000 MG/20 ML VIAL IV STA (02:54)
--- NOTE | 2024-01-06 02:55 | CT Scan Report ---
Exam(s): CT HEAD Without Contrast EXAM: CT Head Without Intravenous Contrast CLINICAL HISTORY: ams. TECHNIQUE: Axial computed tomography images of the head/brain without intravenous contrast. CTDI is 34.93 mGy and DLP is 624.41 mGy-cm. Automated exposure control was utilized for the study. A dose lowering technique was utilized adhering to the principles of ALARA. COMPARISON: No relevant prior studies available. FINDINGS: Brain: No intracranial hemorrhage. No significant mass effect. No evidence for cortical infarct. A calcified lesion extends superiorly from the anterior cranial fossa, measuring 12 x 7 x 8 mm. No evidence for mass effect on the adjacent inferior left frontal lobe. Mild periventricular deep white matter hypodense changes. Ventricles: Unremarkable. No ventriculomegaly. Bones/joints: Unremarkable. No acute fracture. Soft tissues: Unremarkable. Vasculature: Prominent atherosclerotic calcification of the cavernous internal carotid arteries. Sinuses: Small retention cyst or polyp in the posterior right maxillary sinus. The remaining paranasal sinuses are unremarkable. Mastoid air cells: Unremarkable as visualized. No mastoid effusion. IMPRESSION: 1. No acute intracranial process identified. 2. Incidental calcified meningioma involving the left anterior cranial fossa. No significant mass effect on the adjacent parenchyma. Electronically signed by: Wellington Block MD 01/06/24 02:55 AM
--- NOTE | 2024-01-06 03:04 | CT Scan Report ---
Exam(s): CT ABDOMEN + PELVIS With Contrast IV Amt: 118 ML OPTIRAY 320 EXAM: CT Abdomen and Pelvis With Intravenous Contrast CLINICAL HISTORY: mid abd pain. TECHNIQUE: Axial computed tomography images of the abdomen and pelvis with intravenous contrast. CTDI is 28.14 mGy and DLP is 1499.82 mGy-cm. Automated exposure control was utilized for the study. A dose lowering technique was utilized adhering to the principles of ALARA. CONTRAST: Patient received 118 ML OPTIRAY 320 of IV contrast COMPARISON: CT abdomen and pelvis without contrast dated 04/20/2021 FINDINGS: Limitations: There is respiratory artifact, which degrades image quality on multiple image slices. Lung bases: Subsegmental changes in the posterior lower lobes. No consolidation. Heart: Moderate LAD calcification. The cardiac chambers are normal in size. ABDOMEN: Liver: Interval enlargement of the liver with suggestion of interval hypertrophy of the left lobe. Gallbladder and bile ducts: Cholecystectomy. Common bile duct is prominent measuring 12 cm in diameter. No common bile duct stone is seen. Pancreas: The pancreas appears slightly atrophic but demonstrates normal enhancement. No ductal dilation. Spleen: Unremarkable. No splenomegaly. Adrenals: Unremarkable. No mass. Kidneys and ureters: The kidneys demonstrate similar contours with prominent cortical atrophy in the lateral midpole of the left kidney. No hydronephrosis or obstructing nephrolithiasis. Innumerable cortical cysts noted bilaterally with the largest cyst inferolaterally on the right measuring 5.0 cm. The 2 cm cyst involving the anterior midpole of the right kidney is complex and somewhat ill-defined. Similar mild perinephric fat stranding. Stomach and bowel: There is a duodenal diverticulum noted adjacent to the ampulla. The stomach is decompressed. No evidence for bowel obstruction. No asymmetric bowel mucosal abnormality. Mild stool burden. No diverticulitis. PELVIS: Appendix: Incidental normal caliber appendix noted posterior to the cecum. Bladder: The bladder is decompressed with a Bob catheter in position. Reproductive: Status post hysterectomy. ABDOMEN and PELVIS: Intraperitoneal space: Unremarkable. No free air. No significant fluid collection. Bones/joints: No acute fracture. No dislocation. Soft tissues: Unremarkable. Vasculature: The portal vein is patent. Atherosclerotic calcification of the abdominal aorta. No dissection or aneurysm. Incidental bilateral renal stents noted. Lymph nodes: Unremarkable. No enlarged lymph nodes. IMPRESSION: 1. Common bile duct is prominent measuring 12 cm in diameter. This is likely related to cholecystectomy. Please correlate with bilirubin levels. 2. There is a duodenal diverticulum noted adjacent to the ampulla. This is only significant if there is planned endoscopic cannulation of the common bile duct. 3. No evidence for bowel obstruction. No asymmetric bowel mucosal abnormality. Mild stool burden. No diverticulitis. No free intraperitoneal fluid or pneumoperitoneum. 4. Innumerable cortical cysts noted involving both kidneys. The cyst involving the anterior midpole right kidney (series 8; image 45) is indeterminate. A complex cystic or partially solid processes not entirely excluded. No hydronephrosis or obstructive nephrolithiasis. 5. Subsegmental changes in the posterior costophrenic margins is presumed dependent subsegmental atelectasis. Electronically signed by: Wellington Block MD 01/06/24 03:03 AM
--- NOTE | 2024-01-06 03:07 | CT Scan Report ---
Exam(s): CTA CHEST IV Amt: 118 ML OPTIRAY 320 EXAM: CT Angiography Chest With Intravenous Contrast CLINICAL HISTORY: Evaluate for potential PE. TECHNIQUE: Axial computed tomographic angiography images of the chest with intravenous contrast. CTDI is 28.14 mGy and DLP is 1499.82 mGy-cm. Automated exposure control was utilized for the study. A dose lowering technique was utilized adhering to the principles of ALARA. MIP reconstructed images were created and reviewed. COMPARISON: No relevant prior studies available. FINDINGS: Limitations: There is respiratory artifact, which degrades image quality on multiple image slices. Pulmonary arteries: Accounting for respiratory artifact, there is no definite evidence for pulmonary embolism. Aorta: The thoracic aorta is normal in caliber without dissection or aneurysm. Lungs: Subsegmental changes noted involving the inferior lingular segments and posterior lower lobes. No mass. No consolidation. Pleural space: Unremarkable. No significant effusion. No pneumothorax. Heart: The cardiac chambers are normal in caliber. The RV/LV ratio is 0.78. No pericardial effusion. Moderate LAD calcification. Bones/joints: No acute fracture. No dislocation. Soft tissues: Unremarkable. Lymph nodes: Unremarkable. No enlarged lymph nodes. IMPRESSION: 1. Accounting for respiratory artifact, there is no definite evidence for pulmonary embolism. No CT evidence for right heart strain. 2. Subsegmental changes noted involving the inferior lingular segments and posterior lower lobes. Favor dependent atelectasis over subtle infection. No pleural effusion or pneumothorax. Electronically signed by: Wellington Block MD 01/06/24 03:06 AM
[2024-01-06 03:08] LABS: HCO3 VBG 27 mmol/L; Oxygen Saturation VBG 76.4 %; PCO2 VBG 45 mmHg (38-50); PO2 VBG 44 mmHg; pH VBG 7.38 (7.36-7.41)
[2024-01-06] MEDS: cefTRIAXone SODIUM 2,000 MG/50 ML BAG IV STA (03:15)
[2024-01-06 03:40] LABS: Adenovirus PCR Not Detected (NotDetected); Bordetella parapertussis PCR Not Detected (NotDetected); Bordetella pertussis PCR Not Detected (NotDetected); Chlamydia pneumoniae PCR Not Detected (NotDetected); Coronavirus 229E PCR Not Detected (NotDetected); Coronavirus CoV-2 (COVID19)PCR Not Detected (NotDetected); Coronavirus HKU1 PCR Not Detected (NotDetected); Coronavirus NL63 PCR Not Detected (NotDetected); Coronavirus OC43PCR Not Detected (NotDetected); Human Metapneumovirus PCR Not Detected (NotDetected); Influenza A PCR Not Detected (NotDetected); Influenza B PCR Not Detected (NotDetected); Mycoplasma pneumoniae PCR Not Detected (NotDetected); Parainfluenza Virus 1 PCR Not Detected (NotDetected); Parainfluenza Virus 2 PCR Not Detected (NotDetected); Parainfluenza Virus 3 PCR Not Detected (NotDetected); Parainfluenza Virus 4 PCR Not Detected (NotDetected); Respiratory Syncytial VirusPCR Not Detected (NotDetected); Rhinovirus/Enterovirus PCR Not Detected (NotDetected)
[2024-01-06] MEDS ORDERED: HEPARIN SOD (PORCINE) 1000 UNIT/ML IV ONE (03:44)
[2024-01-06] MEDS ORDERED: MAGNESIUM SULFATE / D5W 1 GM/100 ML BAG IV SCH (03:45)
[2024-01-06] MEDS: MAGNESIUM SULFATE / D5W 1 GM/100 ML BAG IV SCH (03:46)
[2024-01-06] MEDS: KETOROLAC TROMETHAMINE 15 MG/ML VIAL ONE (03:46)
[2024-01-06] MEDS: SODIUM CHLORIDE 0.9% 500 ML IV ONE (03:46)
--- NOTE | 2024-01-06 03:50 | Emergency Department Note ---
ED Visit Note The patient was seen and examined with shravan. I performed a substantive portion of all aspects of the medical decision making and agree with the h istory, physical and findings. Please see the note for disposition and details. .
[2024-01-06] MEDS: KETOROLAC TROMETHAMINE 15 MG/ML VIAL IV ONE (03:56)
[2024-01-06] MEDS: Heparin IV Adult Wt-Based Standard w/ INITIAL Bolus Protocol IV STA (03:56)
[2024-01-06] MEDS: VANCOMYCIN HCL 2,000 MG in SODIUM CHLORIDE 0.9% 500 ML IV ONE (04:05)
[2024-01-06] MEDS: PANTOprazole 40 MG in SYRINGE 0 ML IV ONE (04:07)
[2024-01-06] MEDS: HEPARIN SOD (PORCINE) 1000 UNIT/ML IV ONE ×2 (04:20→20:53)
[2024-01-06] MEDS: HEPARIN SODIUM/DEXTROSE 25,000 UNITS/500 ML BAG IV SCH ×2 (04:21→14:04)
--- NOTE | 2024-01-06 04:33 | History & Physical Report ---
Date of Service January 06, 2024 Assessment & Plan (1) Sepsis: Plan: 78-year-old female with past medical history significant for type 2 diabetes, hyperlipidemia, gout, renal artery stenosis, hypertension, chronic diastolic CHF, CKD stage III, GERD, morbid obesity, primary open angle glaucoma right eye moderate stage, history of MRSA infection, spinal stenosis, history of intraductal papilloma of breast, ATILIO, history of malignant neoplasm of endometrium ,ambulates with walker was brought in by her because of severe back pain and and also at one point she complained of chest pain and in the ER found to have rapid A-fib and fevers. She has chronic back pain but got worse last night. With the pain medicine currently back pain is improved. Currently no chest pain. Denies headache. No neck pain. 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 Denies runny nose. No sore throat or cough. Currently no shortness of breath.No nausea. No abdominal pain. Had normal bowel movement yesterday. Micturating okay. Denies blood in the stools. Denies hematuria. Denies any tick bites. Sepsis Temp spike, tachycardia, leukocytosis Lactic acid is 2.1 Blood pressure okay Patient had CT chest, CT abdomen pelvis Most likely pneumonia Will rule out tickborne illness ER gave Vanco and cefepime which we will be continued for now Will also start on IV Doxy for tickborne illness and atypical pneumonia If patient develops diarrhea we will check for C. difficile Follow MRSA screen nd if negative will d/c vanco IV fluids Close monitor on telemetry Rapid A-fib New onset Started on IV heparin Will follow echo Telemetry Continue home metoprolol with holding parameters Improving with fluids and temp control Close monitor Cardiology consult in a.m. for further recommendations Hypomagnesia Replaced Diabetes Hold Ozempic Sliding scale Will monitor Hypertension Holding amlodipine for sepsis Metoprolol with holding parameters Hyperlipidemia On statin CKD stage III Baseline creatinine 1.1-1.3 Present creatinine 1.2 Will follow labs Chronic diastolic CHF Monitor for volume overload Follow echo Morbid obesity Needs counseling Sleep study History of malignant neoplasm of endometrium Status post hysterectomy and bilateral salpingo-oophorectomy Follows with [facility] History of intraductal papilloma of breast Status post left partial mastectomy Spinal stenosis Has chronic back pain Pain control ATILIO On Ativan as needed Renal cyst on the CAT scan follow-up DVT prophylaxis IV heparin Disposition Telemetry Full code. History of Present Illness Chief Complaint: Back pain, fever Primary Care Provider: Nessa Foreman MD 78-year-old female with past medical history significant for type 2 diabetes, hyperlipidemia, gout, renal artery stenosis, hypertension, chronic diastolic CHF, CKD stage III, GERD, morbid obesity, primary open angle glaucoma right eye moderate stage, history of MRSA infection, spinal stenosis, history of intraductal papilloma of breast, ATILIO, history of malignant neoplasm of endometrium ,ambulates with walker was brought in by her because of severe back pain and and also at one point she complained of chest pain and in the ER found to have rapid A-fib and fevers. She has chronic back pain but got worse last night. With the pain medicine currently back pain is improved. Currently no chest pain. Denies headache. No neck pain. 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 Denies runny nose. No sore throat or cough. Currently no shortness of breath.No nausea. No abdominal pain. Had normal bowel movement yesterday. Micturating okay. Denies blood in the stools. Denies hematuria. Denies any tick bites. Past medical history. As mentioned above Past surgical history. Bilateral angio kidneys arteries. Biopsy of breast left fibroadenoma. Colonoscopy. After catheterization. Quinocort of cervix. Dilatation curettage. Left partial mastectomy in 2019. Robotic assisted total laparoscopic hysterectomy and bilateral salpingo-oophorectomy with diagnostic cystoscopy. Ligation of oviducts. Bilateral cataracts. Open cholecystectomy. Removal lumbar spine lamina. Renal artery angioplasty and stent placement. Left renal stent/right renal angioplasty injection of sacroiliac joint. Ultrasound-guided biopsy of the left breast Social history. . No smoking. No alcohol use. No drug use. Family history. Daughter had AAA. Daughter has MS.. Allergies. Paternal grandfather had lung cancer. Maternal grandmother had breast cancer. Paternal grandmother had heart disorder. Hypertension. Mother had colon and uterine cancer. Stroke. Father had a heart disorder. of renal failure. Psoriasis. . Allergies Allergy/AdvReac Type Severity Reaction Status Date / Time allopurinol Allergy Mild RASH Verified 10/01/19 09:44 Penicillins Allergy Mild HIVES Verified 10/01/19 09:44 Bactrim Allergy Unknown ANXIETY Verified 09/26/17 08:37 AND HALLUCINATION sulfamethoxazole AdvReac Intermediate ANXIETY Verified 03/23/21 20:14 AND HALLUCINATION trimethoprim AdvReac Intermediate ANXIETY Verified 03/23/21 20:14 AND HALLUCINATION Home Medications Medication Instructions Recorded Confirmed Type amlodipine 5 mg tablet 5 mg PO DAILY 01/06/24 01/06/24 History aspirin 81 mg tablet,delayed 81 mg PO DAILY 01/06/24 01/06/24 History release atorvastatin 20 mg tablet 20 mg PO DAILY 01/06/24 01/06/24 History calcitriol 0.25 mcg capsule 0.25 mcg PO UD 01/06/24 01/06/24 History colchicine 0.6 mg tablet 0.6 mg PO DAILY PRN gout attack 01/06/24 01/06/24 History fluticasone propionate 50 1 spray intranasal DAILY 01/06/24 01/06/24 History mcg/actuation nasal spray,suspension gabapentin 400 mg capsule 400 mg PO UD 01/06/24 01/06/24 History lorazepam 0.5 mg tablet 0.5 mg PO TID PRN Anxiety 01/06/24 01/06/24 History meloxicam 15 mg tablet 15 mg PO DAILY PRN Pain 01/06/24 01/06/24 History metoprolol succinate 25 mg 25 mg PO UD 01/06/24 01/06/24 History tablet,extended release 24 hr semaglutide 1 mg/dose (4 mg/3 mL) 1 mg subcut WK 01/06/24 01/06/24 History subcutaneous pen injector (Ozempic) tramadol 50 mg tablet 50 mg PO Q6H PRN Severe Pain 01/06/24 01/06/24 History (Scale Score 7-10) Past Med/Surg History Problem List (Updated 01/06/24 @ 03:34 by Tara Hilton PA-C) Hypomagnesemia (Acute) CAP (community acquired pneumonia) (Acute) Atrial fibrillation with rapid ventricular response (Acute) Sepsis (Acute) Degenerative arthritis of knee, bilateral Hypertension GERD (gastroesophageal reflux disease) Diabetes Hyperlipidemia MRSA infection Encounter for pre-operative examination Medical History (Updated 01/06/24 @ 03:34 by Tara Hilton PA-C) Intraductal papilloma of breast left Morbid obesity Renal artery stenosis status post bilateral renal artery stenting Cancer uterine s/p hysterectomy (no chemo/XRT) Chronic back pain Gout Chronic kidney disease stage III (follows with Dr. Okeefe) GERD (gastroesophageal reflux disease) controlled Diabetes mellitus, type 2 Hypertension Hyperlipidemia Surgical History History of renal stent RIGHT/LEFT History of cataract surgery R/L History of hysterectomy TOTAL History of bilateral tubal ligation History of dilatation and curettage X 2 History of hand surgery RIGHT CYST History of cholecystectomy Fusion of spine LUMBAR Family History Brother Family history of diabetes mellitus Mother Family hx of colon cancer Social History Smoking Status: Never smoker Second Hand Exposure: Yes (SPOUSE SMOKES); Do You Dip or Chew Tobacco: No; Hx Alcohol Use: No Hx Substance Use: No Preferred Language: Macedonian Communication Ability: Effective 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 ENT- oropharynx clear Neck- supple, no JVD. Lungs- clear to auscultation no wheezing or crackles Heart- irregular rhythm;tachycardia, no murmur, no gallop. Abdomen- normal bowel sounds, soft, nontender, no distension Extremities- no pretibial edema, no erythema seen Neuro- alert, oriented PERRL, no facial palsy; no dysarthria; moves extremities. Results & Data Results & Data Vital Signs (Past 12 Hours) Vital Signs Temp Pulse Pulse Resp BP Pulse Ox O2 Del Method 01/06/24 02:58 123 H 20 139/88 92 Nasal Cannula 01/06/24 02:13 38.9 C H 01/06/24 02:08 38.9 C H 155 H 22 78 L Room Air 01/06/24 01:48 92 Nasal Cannula 01/06/24 01:48 147 H O2 Flow Rate 01/06/24 02:58 5 01/06/24 02:13 01/06/24 02:08 01/06/24 01:48 5 01/06/24 01:48 Diagnostic Findings Laboratory Results WBC 28.34 K/ul (4.8-10.8) H 01/06/24 01:50 RBC 4.39 M/uL (4.20-5.40) 01/06/24 01:50 Hgb 13.8 g/dl (12.0-16.0) 01/06/24 01:50 Hct 41.5 % (37.0-47.0) 01/06/24 01:50 MCV 94.5 fL (80.0-100.0) 01/06/24 01:50 MCH 31.4 pg (25.0-34.0) 01/06/24 01:50 MCHC 33.3 g/dL (32.0-36.0) 01/06/24 01:50 RDW Std Deviation 48.5 fL (36.4-46.3) H 01/06/24 01:50 RDW Coeff of Monse 13.9 % (11.5-14.5) 01/06/24 01:50 Plt Count 274 K/uL (130-400) 01/06/24 01:50 MPV 9.9 fL (9.4-12.4) 01/06/24 01:50 Immature Gran % (Auto) 1.7 % 01/06/24 01:50 Neut % (Auto) 76.4 % 01/06/24 01:50 Lymph % (Auto) 2.1 % 01/06/24 01:50 Burnet % (Auto) 6.3 % 01/06/24 01:50 Eos % (Auto) 13.1 % 01/06/24 01:50 Baso % (Auto) 0.4 % 01/06/24 01:50 Neut # (Auto) 21.67 K/uL (1.40-6.50) H 01/06/24 01:50 Lymph # (Auto) 0.60 K/uL (1.20-3.40) L 01/06/24 01:50 Burnet # (Auto) 1.79 K/uL (0.11-0.59) H 01/06/24 01:50 Eos # (Auto) 3.70 K/uL (0.00-0.50) H 01/06/24 01:50 Baso # (Auto) 0.11 K/uL (0.00-0.20) 01/06/24 01:50 Immature Gran # (Auto) 0.47 K/uL (0.01-0.20) H 01/06/24 01:50 PT 11.7 Seconds (9.0-12.0) 01/06/24 01:50 INR 1.1 (0.9-1.1) 01/06/24 01:50 APTT 30 Seconds (21-31) 01/06/24 01:50 PTT Ratio 1.1 01/06/24 01:50 VBG pH 7.38 (7.36-7.41) 01/06/24 02:57 VBG pCO2 45 mmHg (38-50) 01/06/24 02:57 VBG pO2 44 mmHg 01/06/24 02:57 VBG HCO3 27 mmol/L 01/06/24 02:57 VBG O2 Saturation 76.4 % 01/06/24 02:57 VBG Base Excess 1.0 mEq/L 01/06/24 02:57 Sodium 137 mmol/L (136-145) 01/06/24 01:50 Potassium 3.5 mmol/L (3.5-5.1) 01/06/24 01:50 Chloride 99 mmol/L (98-107) 01/06/24 01:50 Carbon Dioxide 28 mmol/L (21-32) 01/06/24 01:50 Anion Gap 10 (3-11) 01/06/24 01:50 BUN 25 mg/dl (6-23) H 01/06/24 01:50 Creatinine 1.25 mg/dl (0.6-1.2) H 01/06/24 01:50 Est Cr Clr Drug Dosing 51.9 ml/min 01/06/24 01:50 Est GFR ( Amer) 47.7 ml/min 01/06/24 01:50 Est GFR (Non-Af Amer) 41.2 ml/min 01/06/24 01:50 BUN/Creatinine Ratio 20.0 (10-20) 01/06/24 01:50 Glucose 207 mg/dl (70-99(Fasting)) H 01/06/24 01:50 POC Glucose 226 mg/dl (70-99) H 01/06/24 01:48 Lactate 2.1 mmol/L (0.4-2.0) H* 01/06/24 02:57 Calcium 9.7 mg/dl (8.6-10.3) 01/06/24 01:50 Magnesium 1.5 mg/dl (1.7-2.4) L 01/06/24 01:50 Total Bilirubin 1.5 mg/dl (0.2-1.0) H 01/06/24 01:50 AST 18 U/L (13-39) 01/06/24 01:50 ALT 14 U/L (7-52) 01/06/24 01:50 Alkaline Phosphatase 82 U/L (34-104) 01/06/24 01:50 Total Creatine Kinase 329 U/L (26-192) H 01/06/24 01:50 Troponin I High Sens 21.3 pg/ml (0-14) H 01/06/24 01:50 Total Protein 6.8 gm/dl (6.0-8.3) 01/06/24 01:50 Albumin 4.1 gm/dl (3.4-5.0) 01/06/24 01:50 Globulin 2.7 gm/dl (2.5-4.0) 01/06/24 01:50 Albumin/Globulin Ratio 1.5 (0.9-2) 01/06/24 01:50 Procalcitonin 2.66 ng/ml (0-0.5) H 01/06/24 01:50 TSH 1.834 uIu/ml (0.300-4.500) 01/06/24 01:50 Urine Color Dark Yellow 01/06/24 02:20 Urine Appearance Cloudy (Clear) A 01/06/24 02:20 Urine pH 5.5 (4.5-7.5) 01/06/24 02:20 Ur Specific Gaffney 1.022 (1.000-1.030) 01/06/24 02:20 Urine Protein 4+ (Negative) H 01/06/24 02:20 Urine Glucose (UA) Negative (Negative) 01/06/24 02:20 Urine Ketones Trace (Negative) H 01/06/24 02:20 Urine Blood 2+ (Negative) H 01/06/24 02:20 Urine Nitrite Negative (Negative) 01/06/24 02:20 Urine Bilirubin Negative (Negative) 01/06/24 02:20 Urine Urobilinogen Negative (Negative) 01/06/24 02:20 Ur Leukocyte Esterase Negative (Negative) 01/06/24 02:20 Urine WBC (Auto) 0-5 /hpf (0-5) 01/06/24 02:20 Urine RBC (Auto) 0-2 /hpf (0-2) 01/06/24 02:20 U Hyaline Cast (Auto) 6-10 /lpf (0-2) H 01/06/24 02:20 U Epithel Cells (Auto) 3-5 /hpf (0-2) H 01/06/24 02:20 Urine Bacteria (Auto) None Seen (None Seen) 01/06/24 02:20 Urine Mucus Present (None Prsent) A 01/06/24 02:20 Adenovirus (PCR) Not Detected (NotDetected) 01/06/24 01:55 B. pertussis DNA (PCR) Not Detected (NotDetected) 01/06/24 01:55 B.parapertussis DNA PCR Not Detected (NotDetected) 01/06/24 01:55 C. pneumoniae DNA (PCR) Not Detected (NotDetected) 01/06/24 01:55 Coronavirus OC43 (PCR) Not Detected (NotDetected) 01/06/24 01:55 Coronavirus HKU1 (PCR) Not Detected (NotDetected) 01/06/24 01:55 Coronavirus 229E (PCR) Not Detected (NotDetected) 01/06/24 01:55 SARS-CoV-2 (PCR) Not Detected (NotDetected) 01/06/24 01:55 Coronavirus NL63 (PCR) Not Detected (NotDetected) 01/06/24 01:55 Human Metapneumovir PCR Not Detected (NotDetected) 01/06/24 01:55 Influenza Type A (PCR) Not Detected (NotDetected) 01/06/24 01:55 Influenza Type B (PCR) Not Detected (NotDetected) 01/06/24 01:55 M. pneumoniae (PCR) Not Detected (NotDetected) 01/06/24 01:55 Parainfluenza 1 (PCR) Not Detected (NotDetected) 01/06/24 01:55 Parainfluenza 2 (PCR) Not Detected (NotDetected) 01/06/24 01:55 Parainfluenza 3 (PCR) Not Detected (NotDetected) 01/06/24 01:55 Parainfluenza 4 (PCR) Not Detected (NotDetected) 01/06/24 01:55 RSV (PCR) Not Detected (NotDetected) 01/06/24 01:55 Entero/Rhino (PCR) Not Detected (NotDetected) 01/06/24 01:[address] 01/06/24 01:48 Exam(s): CT HEAD Without Contrast EXAM: CT Head Without Intravenous Contrast CLINICAL HISTORY: ams. TECHNIQUE: Axial computed tomography images of the head/brain without intravenous contrast. CTDI is 34.93 mGy and DLP is 624.41 mGy-cm. Automated exposure control was utilized for the study. A dose lowering technique was utilized adhering to the principles of ALARA. COMPARISON: No relevant prior studies available. FINDINGS: Brain: No intracranial hemorrhage. No significant mass effect. No evidence for cortical infarct. A calcified lesion extends superiorly from the anterior cranial fossa, measuring 12 x 7 x 8 mm. No evidence for mass effect on the adjacent inferior left frontal lobe. Mild periventricular deep white matter hypodense changes. Ventricles: Unremarkable. No ventriculomegaly. Bones/joints: Unremarkable. No acute fracture. Soft tissues: Unremarkable. Vasculature: Prominent atherosclerotic calcification of the cavernous internal carotid arteries. Sinuses: Small retention cyst or polyp in the posterior right maxillary sinus. The remaining paranasal sinuses are unremarkable. Mastoid air cells: Unremarkable as visualized. No mastoid effusion. IMPRESSION: 1. No acute intracranial process identified. 2. Incidental calcified meningioma involving the left anterior cranial fossa. No significant mass effect on the adjacent parenchyma. Electronically signed by: Wellington Block MD 01/06/24 02:55 AM Abdomen/Pelvis CT 01/06/24 01:55 Exam(s): CT ABDOMEN + PELVIS With Contrast IV Amt: 118 ML OPTIRAY 320 EXAM: CT Abdomen and Pelvis With Intravenous Contrast CLINICAL HISTORY: mid abd pain. TECHNIQUE: Axial computed tomography images of the abdomen and pelvis with intravenous contrast. CTDI is 28.14 mGy and DLP is 1499.82 mGy-cm. Automated exposure control was utilized for the study. A dose lowering technique was utilized adhering to the principles of ALARA. CONTRAST: Patient received 118 ML OPTIRAY 320 of IV contrast COMPARISON: CT abdomen and pelvis without contrast dated 04/20/2021 FINDINGS: Limitations: There is respiratory artifact, which degrades image quality on multiple image slices. Lung bases: Subsegmental changes in the posterior lower lobes. No consolidation. Heart: Moderate LAD calcification. The cardiac chambers are normal in size. ABDOMEN: Liver: Interval enlargement of the liver with suggestion of interval hypertrophy of the left lobe. Gallbladder and bile ducts: Cholecystectomy. Common bile duct is prominent measuring 12 cm in diameter. No common bile duct stone is seen. Pancreas: The pancreas appears slightly atrophic but demonstrates normal enhancement. No ductal dilation. Spleen: Unremarkable. No splenomegaly. Adrenals: Unremarkable. No mass. Kidneys and ureters: The kidneys demonstrate similar contours with prominent cortical atrophy in the lateral midpole of the left kidney. No hydronephrosis or obstructing nephrolithiasis. Innumerable cortical cysts noted bilaterally with the largest cyst inferolaterally on the right measuring 5.0 cm. The 2 cm cyst involving the anterior midpole of the right kidney is complex and somewhat ill-defined. Similar mild perinephric fat stranding. Stomach and bowel: There is a duodenal diverticulum noted adjacent to the ampulla. The stomach is decompressed. No evidence for bowel obstruction. No asymmetric bowel mucosal abnormality. Mild stool burden. No diverticulitis. PELVIS: Appendix: Incidental normal caliber appendix noted posterior to the cecum. Bladder: The bladder is decompressed with a Bob catheter in position. Reproductive: Status post hysterectomy. ABDOMEN and PELVIS: Intraperitoneal space: Unremarkable. No free air. No significant fluid collection. Bones/joints: No acute fracture. No dislocation. Soft tissues: Unremarkable. Vasculature: The portal vein is patent. Atherosclerotic calcification of the abdominal aorta. No dissection or aneurysm. Incidental bilateral renal stents noted. Lymph nodes: Unremarkable. No enlarged lymph nodes. IMPRESSION: 1. Common bile duct is prominent measuring 12 cm in diameter. This is likely related to cholecystectomy. Please correlate with bilirubin levels. 2. There is a duodenal diverticulum noted adjacent to the ampulla. This is only significant if there is planned endoscopic cannulation of the common bile duct. 3. No evidence for bowel obstruction. No asymmetric bowel mucosal abnormality. Mild stool burden. No diverticulitis. No free intraperitoneal fluid or pneumoperitoneum. 4. Innumerable cortical cysts noted involving both kidneys. The cyst involving the anterior midpole right kidney (series 8; image 45) is indeterminate. A complex cystic or partially solid processes not entirely excluded. No hydronephrosis or obstructive nephrolithiasis. 5. Subsegmental changes in the posterior costophrenic margins is presumed dependent subsegmental atelectasis. Electronically signed by: Wellington Block MD 01/06/24 03:03 AM Chest CTA 01/06/24 01:55 Exam(s): CTA CHEST IV Amt: 118 ML OPTIRAY 320 EXAM: CT Angiography Chest With Intravenous Contrast CLINICAL HISTORY: Evaluate for potential PE. TECHNIQUE: Axial computed tomographic angiography images of the chest with intravenous contrast. CTDI is 28.14 mGy and DLP is 1499.82 mGy-cm. Automated exposure control was utilized for the study. A dose lowering technique was utilized adhering to the principles of ALARA. MIP reconstructed images were created and reviewed. COMPARISON: No relevant prior studies available. FINDINGS: Limitations: There is respiratory artifact, which degrades image quality on multiple image slices. Pulmonary arteries: Accounting for respiratory artifact, there is no definite evidence for pulmonary embolism. Aorta: The thoracic aorta is normal in caliber without dissection or aneurysm. Lungs: Subsegmental changes noted involving the inferior lingular segments and posterior lower lobes. No mass. No consolidation. Pleural space: Unremarkable. No significant effusion. No pneumothorax. Heart: The cardiac chambers are normal in caliber. The RV/LV ratio is 0.78. No pericardial effusion. Moderate LAD calcification. Bones/joints: No acute fracture. No dislocation. Soft tissues: Unremarkable. Lymph nodes: Unremarkable. No enlarged lymph nodes. IMPRESSION: 1. Accounting for respiratory artifact, there is no definite evidence for pulmonary embolism. No CT evidence for right heart strain. 2. Subsegmental changes noted involving the inferior lingular segments and posterior lower lobes. Favor dependent atelectasis over subtle infection. No pleural effusion or pneumothorax. Electronically signed by: Wellington Block MD 01/06/24 03:06 AM ECG Additional Comments: ECG rapid A-fib rate of 114. ST-T wave abnormality lateral leads Code Status & VTE Plan VTE Prophylaxis Plan VTE Prophylaxis will be ordered: Yes (1) Sepsis Sepsis acute organ dysfunction status: without acute organ dysfunction Sepsis type: sepsis due to unspecified organism Qualified Code(s): A41.9 - Sepsis, unspecified organism
[2024-01-06 04:34] LABS: INR 1.1 (0.9-1.1); Partial Thromboplastin Ratio 1.1; Partial Thromboplastin Time 30 Seconds (21-31); Prothrombin Time 11.7 Seconds (9.0-12.0)
[2024-01-06] MEDS ORDERED: DEXTROSE 50% 50 ML SYRINGE IV PRN (04:54)
[2024-01-06] MEDS ORDERED: GLUCOSE 10 TAB/TUBE PO PRN (04:54)
[2024-01-06] MEDS ORDERED: CARBOHYDRATES FOR HYPOGLYCEMIA PO PRN (04:54)
[2024-01-06] MEDS ORDERED: NITROGLYCERIN SL 0.4 MG/TAB TAB SL PRN (04:54)
[2024-01-06] MEDS ORDERED: COLCHICINE 0.6 MG TAB PO PRN (04:54)
[2024-01-06] MEDS ORDERED: GLUCOSE 40% GEL 15 GM TUBE PO PRN (04:54)
[2024-01-06] MEDS ORDERED: GLUCAGON FOR INJ 1 MG VIAL SQ PRN (04:54)
[2024-01-06] MEDS: DOXYCYCLINE HYCLATE 100 MG in DEXTROSE 5% MINI-B 100 ML IV STA (05:38)
[2024-01-06 05:44] LABS: Hematocrit (blood only) 33.6 % (37.0-47.0); Hemoglobin 11.3 g/dl (12.0-16.0); Mean Corpuscular Hemoglobin 31.6 pg (25.0-34.0); Mean Corpuscular Hgb Conc 33.6 g/dL (32.0-36.0); Mean Corpuscular Volume 93.9 fL (80.0-100.0); Mean Platelet Volume 9.8 fL (9.4-12.4); Platelet Count 231 K/uL (130-400); RDW Coefficient of Variation 13.9 % (11.5-14.5); RDW Standard Deviation 48.4 fL (36.4-46.3); Red Blood Count 3.58 M/uL (4.20-5.40)
[2024-01-06 05:59] LABS: BUN Creatinine Ratio 22.6 (10-20); Calcium 8.3 mg/dl (8.6-10.3); Creatinine Clr Calc Pharmacy 56.4 ml/min; Est GFR (African American) 52.8 ml/min; Est GFR (Non-African American) 45.5 ml/min; Potassium 3.5 mmol/L (3.5-5.1)
[2024-01-06 06:06] LABS: Troponin I High Sensitivity 32.7 pg/ml (0-14)
[2024-01-06] MEDS: SODIUM CHLORIDE 0.9% 1,000 ML IV SCH (06:08)
[2024-01-06 06:09] LABS: Basophils # (auto) 0.08 K/uL (0.00-0.20); Basophils % (auto) 0.3 %; Eosinophils # (auto) 0.01 K/uL (0.00-0.50); Immature Granulocytes # (auto) 0.25 K/uL (0.01-0.20); Lymphocytes # (auto) 0.58 K/uL (1.20-3.40); Lymphocytes % (auto) 2.4 %; Monocytes % (auto) 5.9 %; Neutrophils # (auto) 21.58 K/uL (1.40-6.50); Neutrophils % (auto) 90.4 %
[2024-01-06] MEDS: INSULIN ASPART PER UNIT CHARGE SC SCH ×2 (06:12→20:52)
--- NOTE | 2024-01-06 06:40 | XRay Report ---
XR chest 1V portable CLINICAL HISTORY: weakness COMPARISON STUDY: Chest radiograph January 23, 2010. FINDINGS: Lung volumes are normal. Mild bibasilar opacity favors atelectasis. There is no pneumothora x or pleural effusion. Cardiac size is normal. Mediastinal contours are normal. There is no evidence for pulmonary edema. IMPRESSION: Mild bibasilar opacities which favor atelectasis. No acute cardiopulmonary findings. ACT 112: Negative or not required by law. Electronically signed by: Misha Wilkinson M.D. 01/06/2024 6:39 AM
--- NOTE | 2024-01-06 08:25 | Cardiology Consultation ---
Date of Consultation January 06, 2024 Assessment & Plan (1) Sepsis: (2) Atrial fibrillation with rapid ventricular response: (3) Hypertension: Plan Patient admitted for fevers, rigors, SOB, back pain and diagnosed with sepsis. Source of infectious process currently unclear. Possible pneumonia on chest xray, although patient does not have significant respiratory symptoms. Blood culture pending x1. Started on broad spectrum antibiotics. Ongoing back pain reported, which patient reports this is chronic issues, but worsened yesterday. Consider spinal CT to r/o discitis? On admission also found to have Atrial fibrillation RVR. Duration unknown but likely due to acute illness/sepsis. Started on IV heparin for stroke prophylaxis. Treated with several doses of IV diltiazem. Converted to NSR around 5:00 AM. Increase oral metoprolol to 50 mg BID (home dose was 50 in AM and 25 mg in PM) [id number] score of 9 (sex, age, HF, HTN, DM, prior thromboembolism, vascular disease). Chronic anticoagulation with Eliquis will be recommended. Continue IV heparin for now, until clear source of infection has been identified? CRP, ESR this morning. Echocardiogram pending. BP uncontrolled this morning. Monitor. Increase metoprolol to 50 mg BID. antihypertensive meds held on admission due to sepsis and potential hypotension. Amlodipine, Losartan and furosemide held on admission Continue ASA and statin given renal artery stents. Case discussed with Dr. Quintana I spent a total of 60 minutes on the date of service in preparation, delivery, and documentation of the care provided to this patient, excluding any time spent in the performance of separately billed services. Bushra Restrepo PA-C Department of Cardiology, [facility] This chart was completed in part utilizing Speech Voice Recognition Software. Grammatical errors, random word insertions, pronoun errors, and incomplete sentences are an occasional consequence of this system due to software limitations, ambient noise, and hardware issues. Any formal questions or concerns about the content, text, or information contained within the body of this dictation should be directly addressed to the provider for clarification. Supervising Physician Co-Signing Physician Notes Attending attestation: Case reviewed with the advanced practitioner. I have personally performed a history and physical examination on the patient. I have reviewed the advanced practitioner's documentation on the date of service referenced in note, and I agree with, and take responsibility for the plan of care. Subjective:Pt seen in the ED, room C11B Daughter , Brad, and son in law in the room. is at home. No sick contacts. Feels poorly. "Everything hurts". Fever improved. Converted from AF with RVR to SR at 5 am. Remains in SR in the 80s. Fell 3 weeks ago and landed on her tail bone. Has chronic back pain. Exam: CV: regular rhythm, no murmur Data: Echo normal wall motion and normal LVEF Impression/ Plan: Sepsis- emperic antibiotics and blood culture. Source still not clear. Add ESR, CRP AF- Increase metoprolol to 50 mg BID . Continue heparin infusion for stroke prevention. Hold off on Eliquis until need for procedures more clear. I spent a total of 30 minutes coordinating, documenting, and providing care for this patient excluding time spent in the performance of separately billed services or time spent by another provider. Aren Quintana, DO History of Present Illness Reason for Consultation: Afib RVR Requesting Physician: [facility] Hospitalist Attending Physician: Dr. Quintana History of Present Illness Patient is a 78 year old female, known to [facility] Cardiology, Dr. Cano who was admitted with generalized weakness, fevers, chills, SOB, right shoulder and back pain. History includes: 1. Non-obstructive CAD by left heart catheterization 2010. 2. Hypertension 3. Chronic diastolic heart failure. 4. Renal artery stenosis due to fibromuscular dysplasia, status post B/L renal artery stenting (left side in 2002, right in 2010). Follows with Vascular 5. Dyslipidemia 6. Palpitations 7. Diabetes type 2 8. CKD stage 3 9. history of central retinal artery occlusion in 2020 Patient admitted yesterday with complaints of back pain, right shoulder pain, SOB, fevers over the last few days. Upon admission WBC elevated at 12.1, now 23.9. Chest xray and chest CTA negative for PE, and questionable lower lobes pneumonia vs atelectasis. Blood cultures pending x1. Started on broad spectrum antibiotics. Thus far tick borne illness work up is negative. Negative viral panel. Urine with protein and blood. No significant WBC. EKG demonstrated afib RVR with lateral T wave inversions. She was started on IV heparin and given several doses of IV diltiazem. She converted to NSR overnight around 5:00 AM. HS troponin since admission only minimally elevated at 21-29-32. At time of consult, patient with ongoing rigors. Feeling poorly. Denies chest pain or SOB. Still has right shoulder pain radiating down her back. No abdominal pain. No orthopnea, PND or edema. Currently NSR in the 80's. On IV heparin. Allergies Allergy/AdvReac Type Severity Reaction Status Date / Time allopurinol Allergy Mild RASH Verified 10/01/19 09:44 Penicillins Allergy Mild HIVES Verified 10/01/19 09:44 Bactrim Allergy Unknown ANXIETY Verified 09/26/17 08:37 AND HALLUCINATION sulfamethoxazole AdvReac Intermediate ANXIETY Verified 03/23/21 20:14 AND HALLUCINATION trimethoprim AdvReac Intermediate ANXIETY Verified 03/23/21 20:14 AND HALLUCINATION Home Medications Medication Instructions Recorded Confirmed Type amlodipine 5 mg tablet 5 mg PO DAILY 01/06/24 01/06/24 History aspirin 81 mg tablet,delayed 81 mg PO DAILY 01/06/24 01/06/24 History release atorvastatin 20 mg tablet 20 mg PO DAILY 01/06/24 01/06/24 History calcitriol 0.25 mcg capsule 0.25 mcg PO UD 01/06/24 01/06/24 History colchicine 0.6 mg tablet 0.6 mg PO DAILY PRN gout attack 01/06/24 01/06/24 History fluticasone propionate 50 1 spray intranasal DAILY 01/06/24 01/06/24 History mcg/actuation nasal spray,suspension gabapentin 400 mg capsule 400 mg PO UD 01/06/24 01/06/24 History lorazepam 0.5 mg tablet 0.5 mg PO TID PRN Anxiety 01/06/24 01/06/24 History meloxicam 15 mg tablet 15 mg PO DAILY PRN Pain 01/06/24 01/06/24 History metoprolol succinate 25 mg 25 mg PO UD 01/06/24 01/06/24 History tablet,extended release 24 hr semaglutide 1 mg/dose (4 mg/3 mL) 1 mg subcut WK 01/06/24 01/06/24 History subcutaneous pen injector (Ozempic) tramadol 50 mg tablet 50 mg PO Q6H PRN Severe Pain 01/06/24 01/06/24 History (Scale Score 7-10) Patient History Medical History (Updated 01/06/24 @ 10:19 by Bushra Restrepo PA-C) Intraductal papilloma of breast left Morbid obesity Renal artery stenosis status post bilateral renal artery stenting Cancer uterine s/p hysterectomy (no chemo/XRT) Chronic back pain Gout Chronic kidney disease stage III (follows with Dr. Okeefe) GERD (gastroesophageal reflux disease) controlled Diabetes mellitus, type 2 Hypertension Hyperlipidemia Surgical History History of renal stent RIGHT/LEFT History of cataract surgery R/L History of hysterectomy TOTAL History of bilateral tubal ligation History of dilatation and curettage X 2 History of hand surgery RIGHT CYST History of cholecystectomy Fusion of spine LUMBAR Family History Brother Family history of diabetes mellitus Mother Family hx of colon cancer Social History Smoking Status: Never smoker Second Hand Exposure: Yes (SPOUSE SMOKES); Do You Dip or Chew Tobacco: No; Hx Alcohol Use: No Hx Substance Use: No Preferred Language: Palestinian Communication Ability: Effective Jointer Machine Required: No Beliefs That Will Affect Care: None Current Living Situation: Spouse Feels Safe at Home: Yes Safety Concerns: Feels Safe At This Time Assistive Devices: Cane and Glasses Review of Systems Review of Systems: All systems reviewed & are unremarkable except as noted in HPI & below Physical Exam Constitutional: + ill appearing and + obese Neck: trachea midline, no thyromegaly Respiratory: no labored breathing Auscultation: + diminished lung sounds and + rhonchi; no crackles Cardiovascular: Rate/Rhythm: regular rate and regular rhythm Heart Sounds: no murmur Vessels: no JVD Extremities: no edema Gastrointestinal (Abdomen): normal bowel sounds, soft, nontender, no hepatosplenomegaly Neurologic: PERRL, EOMI, accommodation nl, no face palsy, no dysarthria Psychiatric: A+Ox3, euthymic affect Results & Data Vital Signs (Past 12 Hours) Vital Signs Temp Pulse Pulse Resp BP Pulse Ox O2 Del Method 01/06/24 07:11 77 17 169/76 H 95 Room Air 01/06/24 05:52 80 18 143/64 H 92 Nasal Cannula 01/06/24 05:43 36.7 C 01/06/24 05:36 81 09/16/24 05:21 82 18 152/68 H 92 Nasal Cannula 01/06/24 02:58 123 H 20 139/88 92 Nasal Cannula 01/06/24 02:13 38.9 C H 01/06/24 02:08 38.9 C H 155 H 22 78 L Room Air 01/06/24 01:48 92 Nasal Cannula 01/06/24 01:48 147 H O2 Flow Rate 01/06/24 07:11 01/06/24 05:52 3 01/06/24 05:43 01/06/24 05:36 01/06/24 05:21 3 01/06/24 02:58 5 01/06/24 02:13 01/06/24 02:08 01/06/24 01:48 5 01/06/24 01:48 Laboratory Results Cardiac Enzymes 01/06/24 01/06/24 01/06/24 Range/Units 01:50 04:13 05:27 AST 18 (13-39) U/L Troponin I High Sens 21.3 H 29.0 H 32.7 H (0-14) pg/ml Coagulation 01/06/24 Range/Units 01:50 PT 11.7 (9.0-12.0) Seconds APTT 30 (21-31) Seconds CBC 01/06/24 01/06/24 Range/Units 01:50 05:27 WBC 28.34 H 23.90 H (4.8-10.8) K/ul RBC 4.39 3.58 L (4.20-5.40) M/uL Hgb 13.8 11.3 L (12.0-16.0) g/dl Hct 41.5 33.6 L (37.0-47.0) % Plt Count 274 231 (130-400) K/uL Neut # (Auto) 21.67 H 21.58 H (1.40-6.50) K/uL Lymph # (Auto) 0.60 L 0.58 L (1.20-3.40) K/uL [place] # (Auto) 1.79 H 1.40 H (0.11-0.59) K/uL Eos # (Auto) 3.70 H 0.01 (0.00-0.50) K/uL Baso # (Auto) 0.11 0.08 (0.00-0.20) K/uL Comprehensive Metabolic Panel 01/06/24 01/06/24 Range/Units 01:50 05:27 Sodium 137 137 (136-145) mmol/L Potassium 3.5 3.5 (3.5-5.1) mmol/L Chloride 99 105 (98-107) mmol/L Carbon Dioxide 28 24 (21-32) mmol/L BUN 25 H 26 H (6-23) mg/dl Creatinine 1.25 H 1.15 (0.6-1.2) mg/dl Glucose 207 H 224 H (70-99(Fasting)) mg/dl Calcium 9.7 8.3 L (8.6-10.3) mg/dl AST 18 (13-39) U/L ALT 14 (7-52) U/L Alkaline Phosphatase 82 (34-104) U/L Total Protein 6.8 (6.0-8.3) gm/dl Albumin 4.1 (3.4-5.0) gm/dl Intake and Output 01/05/24 01/06/24 01/06/24 22:59 06:59 14:59 Intake Total 2300 / 2300 1332 / 1332 Balance 2300 / 2300 1332 / 1332 Intake: IV 2300 / 2300 1332 / 1332 Acetaminophen 1,000 mg In 100 100 / 100 ml @ 400 mls/hr IV NOW STA Rx#: [id number] Doxycycline Hyclate 100 mg In 100 / 100 Dextrose 5% Mini-B 100 ml @ 50 mls/hr IV NOW STA Rx#:[id number] Heparin Sodium/Dextrose 25,000 192 / 192 units In 500 ml @ 1,600 UNITS/ HR 32 mls/hr IV .[id number] VAN Rx #:[id number] Magnesium Sulfate / D5w 1 gm In 200 / 200 100 ml @ 100 mls/hr IV Q1H VAN Rx#:[id number] Sodium Chloride 0.9% 500 ml @ 1500 / 1500 999 mls/hr IV .Q31M ONE Rx#: [id number] Sodium Chloride 0.9% 500 ml @ 500 / 500 500 / 500 500 mls/hr IV .Q1H VAN Rx#: [id number] Vancomycin HCl 2,000 mg In 540 / 540 Sodium Chloride 0.9% 500 ml @ 200 mls/hr IV NOW ONE Rx#: [id number] Oral 0 / 0 Other: Weight 129 kg Weight Measurement Method [facility] Diagnostic Findings Telemetry reviewed: Upon arrival to the ER, patient found to have afib RVR. She converted to NSR around 4:58 AM. Currently NSR in the 80's. EKG on admission dated 01/06/24 at 1:44 AM: Atrial fibrillation with RVR at 150 bmp Lateral T wave inversions Repeat EKG on 01/06/24 at 8:59: NSR with 1st degree AV block possible old septal infarct Compared with prior EKG on admission, NSR has replaced atrial fibrillation T wave inversions in lateral leads have improved Chest X-Ray 01/06/24 01:48 IMPRESSION: Mild bibasilar opacities which favor atelectasis. No acute cardiopulmonary findings. Electronically signed by: Misha Wilkinson M.D. 01/06/2024 6:[address] 01/06/24 01:48 IMPRESSION: 1. No acute intracranial process identified. 2. Incidental calcified meningioma involving the left anterior cranial fossa. No significant mass effect on the adjacent parenchyma. Electronically signed by: Wellington Block MD 01/06/24 02:55 AM Abdomen/Pelvis CT 01/06/24 01:55 IMPRESSION: 1. Common bile duct is prominent measuring 12 cm in diameter. This is likely related to cholecystectomy. Please correlate with bilirubin levels. 2. There is a duodenal diverticulum noted adjacent to the ampulla. This is only significant if there is planned endoscopic cannulation of the common bile duct. 3. No evidence for bowel obstruction. No asymmetric bowel mucosal abnormality. Mild stool burden. No diverticulitis. No free intraperitoneal fluid or pneumoperitoneum. 4. Innumerable cortical cysts noted involving both kidneys. The cyst involving the anterior midpole right kidney (series 8; image 45) is indeterminate. A complex cystic or partially solid processes not entirely excluded. No hydronephrosis or obstructive nephrolithiasis. 5. Subsegmental changes in the posterior costophrenic margins is presumed dependent subsegmental atelectasis. Electronically signed by: Wellington Block MD 01/06/24 03:03 AM Chest CTA 01/06/24 01:55 IMPRESSION: 1. Accounting for respiratory artifact, there is no definite evidence for pulmonary embolism. No CT evidence for right heart strain. 2. Subsegmental changes noted involving the inferior lingular segments and posterior lower lobes. Favor dependent atelectasis over subtle infection. No pleural effusion or pneumothorax. Electronically signed by: Wellington Block MD 01/06/24 03:06 AM Medications Administered Current Inpatient Medications Apixaban (Apixaban 5 Mg Tablet) 5 mg PO BID VAN Stop: 02/05/24 09:29 Aspirin (Aspirin 81 Mg Ectab) 81 mg PO DAILY VAN Stop: 02/05/24 08:59 Last Admin: 01/06/24 08:51 Dose: 81 mg Atorvastatin Calcium (Atorvastatin 20 Mg Tab) 20 mg PO DAILY VAN Stop: 02/05/24 08:59 Last Admin: 01/06/24 08:50 Dose: 20 mg Calcitriol (Calcitriol 0.25 Mcg Capsule) 0.25 mcg PO TuTh@0900 VAN Stop: 02/06/24 08:59 Colchicine (Colchicine 0.6 Mg Tab) 0.6 mg PO DAILY PRN PRN Reason: gout attack Stop: 02/05/24 04:53 Dextrose (Dextrose 50% 50 Ml Syringe) 25 - 50 ml IV UD PRN; Protocol PRN Reason: Hypoglycemia Protocol Stop: 02/05/24 04:53 Fluticasone Propionate (Fluticasone Propionate Na Spr 16 Gm Btl) 1 sprays NA DAILY VAN Stop: 02/05/24 08:59 Last Admin: 01/06/24 08:51 Dose: 1 sprays Gabapentin (Gabapentin 400 Mg Cap) 400 mg PO PM VAN Stop: 02/05/24 20:59 Gabapentin (Gabapentin 800 Mg Tab) 800 mg PO QAM VAN Stop: 02/05/24 08:59 Last Admin: 01/06/24 08:50 Dose: 800 mg Glucagon (Glucagon For Inj 1 Mg Vial) 1 mg SQ UD PRN; Protocol PRN Reason: Hypoglycemia Protocol Stop: 02/05/24 04:53 Glucose (Glucose 40% Gel 15 Gm Tube) 15 - 30 gm PO UD PRN; Protocol PRN Reason: Hypoglycemia Protocol Stop: 02/05/24 04:53 Glucose (Glucose 10 Tab/Tube) 4 - 8 tab PO UD PRN; Protocol PRN Reason: Hypoglycemia Treatment Stop: 02/05/24 04:53 Sodium Chloride (Nss) 1,000 mls @ 125 mls/hr IV .Q8H VAN Stop: 02/05/24 04:53 Last Admin: 01/06/24 06:08 Dose: 125 mls/hr Cefepime HCl 2,000 mg/ Syringe 20 mls @ 5 mls/min IV Q12H [facility]; Protocol Stop: 01/13/24 14:59 Acetaminophen (Ofirmev) 1,000 mg in 100 mls @ 400 mls/hr IV Q8H PRN PRN Reason: Pain or Fever Stop: 01/09/24 04:53 Vancomycin HCl 1,250 mg/ (Sodium Chloride) 275 mls @ 200 mls/hr IV Q24H [facility] Stop: 01/13/24 19:59 Insulin Aspart (Insulin Aspart Per Unit Charge) 0 units SC Q6 [facility] Stop: 02/05/24 05:59 Last Admin: 01/06/24 06:12 Dose: 4 units Lorazepam (Lorazepam 0.5 Mg Tab) 0.5 mg PO TID PRN PRN Reason: Anxiety Stop: 02/05/24 04:53 Metoprolol Succinate (Metoprolol Succ 25mg Ext Rel Tab) 25 mg PO PM [facility] Stop: 02/05/24 20:59 Metoprolol Succinate (Metoprolol Succ 50mg Ext Rel Tab) 50 mg PO QAM [facility] Stop: 02/05/24 08:59 Last Admin: 01/06/24 08:51 Dose: 50 mg Miscellaneous (Carbohydrates For Hypoglycemia ) 15 - 30 gm PO UD PRN PRN Reason: Hypoglycemia Protocol Stop: 02/05/24 04:53 Miscellaneous Information (Vancomycin Consult Active) 1 each N/A UD PRN PRN Reason: Consult Stop: 02/05/24 02:09 Nitroglycerin (Nitroglycerin Sl 0.4 Mg/Tab Tab) 0.4 mg SL Q5M PRN PRN Reason: Chest Pain Stop: 02/05/24 04:53 Ondansetron HCl (Ondansetron Inj 2 Mg/Ml 2 Ml Vial) 4 mg IV Q4H PRN PRN Reason: Nausea Stop: 02/05/24 09:26 Tramadol HCl (Tramadol Hcl 50 Mg Tablet) 50 mg PO Q6H PRN PRN Reason: Severe Pain (Scale Score 7-10) Stop: 02/05/24 04:53 Last Admin: 01/06/24 08:48 Dose: 50 mg (1) Sepsis Sepsis acute organ dysfunction status: without acute organ dysfunction Sepsis type: sepsis due to unspecified organism Qualified Code(s): A41.9 - Sepsis, unspecified organism (3) Hypertension Hypertension type: renovascular hypertension Qualified Code(s): I15.0 - Renovascular hypertension
[2024-01-06] MEDS: traMADol HCL 50 MG TABLET PO PRN (08:48)
[2024-01-06] MEDS: ATORVASTATIN 20 MG TAB PO SCH (08:50)
[2024-01-06] MEDS: GABAPENTIN 800 MG TAB PO SCH (08:50)
[2024-01-06] MEDS: FLUTICASONE PROPIONATE NA SPR 16 GM BTL SCH (08:51)
[2024-01-06] MEDS: METOPROLOL SUCC 50MG EXT REL TAB PO SCH ×2 (08:51→20:49)
[2024-01-06] MEDS: ASPIRIN 81 MG ECTAB PO SCH (08:51)
[2024-01-06 10:18] LABS: C Reactive Protein 25.02 mg/dl (0-0.5)
--- NOTE | 2024-01-06 10:43 | Pharmacy Report ---
Pharmacy PK ABX Note - Date of Service January 06, 2024 - Assessment and Plan Assessment * 78 year old F receiving VANCOMYCIN + CEFEPIME + DOXYCYCLINE for treatment of CAP (without clear risk factors for resistant organism) and possible tickborne illness. * Pertinent microbiologic data includes: Positive MRSA Nasal Swab, negative resp BioFire, negative smear for Babesia/Anaplasma (serologies are send outs), negative Lyme screen, BLCX pending, procal 2.66 * Day # 1 Plan Vancomycin * Loading dose: 2000 mg IV x 1 given overnight * Maintenance dose: 1250 mg IV every 24 hours (to begin at 2000 this evening to quickly achieve therapeutic targets) * Regimen is predicted to achieve target AUC/RENAN of 400-600 mg/L.hr * Drug level ordered for 01/07 if therapy to continue Pharmacy will continue to follow and will adjust dose/frequency as necessary. Thank you. Pharmacy has transitioned to AUC monitoring for vancomycin. AUC/RENAN is the preferred PK/PD target and is associated with decreased risk of nephrotoxicity compared to traditional trough targets.
[2024-01-06] MEDS: APIXABAN 5 MG TABLET PO SCH (11:54)
[2024-01-06 12:11] LABS: iSTAT Creatinine 1.3 mg/dl (0.6-1.3); iSTAT Hemoglobin 13.9 g/dl (12.0-16.0); iSTAT Ionized Calcium 1.18 mmol/l (1.12-1.32); iSTAT Potassium 3.5 mmol/L (3.3-5.0)
[2024-01-06] MEDS: ACETAMINOPHEN 1,000 MG/100 ML VIAL IV PRN (12:42)
[2024-01-06] MEDS: ONDANSETRON INJ 2 MG/ML 2 ML VIAL IV PRN (12:42)
[2024-01-06] MEDS: Heparin IV Adult Wt-Based Standard *NO* INITIAL Bolus Protocol IV STA (14:06)
--- NOTE | 2024-01-06 14:36 | Hospitalist Progress Note ---
Date of Service January 06, 2024 Assessment & Plan (1) Severe sepsis with acute organ dysfunction: (2) Paroxysmal atrial fibrillation with rapid ventricular response: (3) Demand ischemia of myocardium: (4) Acute back pain: (5) Diabetes mellitus, type 2: (6) Morbid obesity: (7) Chronic kidney disease: Plan Patient presents with signs and symptoms of severe sepsis with organ dysfunction as evidenced by new onset atrial fibrillation and demand ischemia. Continue broad-spectrum antibiotics Continue to monitor cultures Definitive source of infection at this time still unclear Patient has converted back into sinus rhythm, echocardiogram unremarkable Cardiology consultation noted, preferring IV heparin until definitively ruled out for any procedures. Will need chronic anticoagulation with significantly elevated CHADS2 score Patient appears to have acute on chronic back pain, question if this may be source of infection. CT imaging of the chest and abdomen did not note any bony abnormalities MRI of the thoracic and lumbar spine Scheduled Tylenol and gabapentin for pain control, as needed tramadol and oxycodone Continue insulin coverage for diabetes Therapies Case management for discharge planning Monitor laboratory studies Admission and Anticipated Discharge Date Admission Date: January 06, 2024 Subjective Patient's states is very difficult to get comfortable, severe back pain across the her scapula as well as low back pain. She reports she has chronic sciatica but has worsened over the past few days. Physical Exam Physical Exam: Constitutional: Alert, moderate distress, nontoxic HEENT: Mucous membranes moist. Lungs: Decreased breath sounds, no wheezes rales or rhonchi CV: S1-S2, regular Abdomen: Soft, nontender, nondistended Extremities: No significant edema Neuro: No focal deficits Musculoskeletal: Some paravertebral muscular tenderness along the thoracic and lumbar muscles. No point tenderness over the spine in the thoracic or lumbar Psych: Cooperative, extremely anxious Results & Data Results & Data Vital Signs (Past 12 Hours) Vital Signs Temp Pulse Pulse Resp BP Pulse Ox O2 Del Method 01/06/24 11:00 36.7 C 90 22 205/92 H 94 Nasal Cannula 01/06/24 10:00 36.9 C 91 H 18 158/71 H 93 Nasal Cannula 01/06/24 09:19 88 01/06/24 07:11 77 17 169/76 H 95 Nasal Cannula 01/06/24 05:52 80 18 143/64 H 92 Nasal Cannula 01/06/24 05:43 36.7 C 01/06/24 05:36 81 01/06/24 05:21 82 18 152/68 H 92 Nasal Cannula 01/06/24 02:58 123 H 20 139/88 92 Nasal Cannula O2 Flow Rate 01/06/24 11:00 5 01/06/24 10:00 5 01/06/24 09:19 01/06/24 07:11 4 01/06/24 05:52 3 01/06/24 05:43 01/06/24 05:36 01/06/24 05:21 3 01/06/24 02:58 5 Diagnostic Findings Reviewed imaging, laboratory and diagnostic studies. Pertinent findings as below. Troponins flat minimal elevation C-reactive protein 25.0 Procalcitonin 2.6 TSH 1.8 WBCs 23.9 slightly improved Echocardiogram normal ejection fraction, no evidence of right ventricular fa ilure MRSA screen positive Personally reviewed EKG, initial EKG atrial fibrillation with rapid ventricular response, subsequent EKG sinus rhythm Reviewed CT reports of chest and abdomen, no bony abnormalities noted Critical Care Time Prolonged Care Time 49 minutes prolonged services, evaluation patient, review of record, co mmunication with specialists and medical team
[2024-01-06] MEDS: LORazepam 2 MG/1 ML VIAL IV ONE ×2 (17:34→17:51)
[2024-01-06] MEDS ORDERED: DOXYCYCLINE HYCLATE 100 MG in DEXTROSE 5% MINI-B 100 ML IV SCH (18:00)
[2024-01-06 18:47] LABS: A calco-baum cmplx NotReported Not Detected (NotDetected); Bact fragilis Not Reported Not Detected (NotDetected); Blood Culture Id Panel See PCR Comment (NotDetected); C auris Not Reported Not Detected (NotDetected); Calbicans Not Reported Not Detected (NotDetected); Candida glabrata Not Reported Not Detected (NotDetected); Candida krusei Not Reported Not Detected (NotDetected); Cneoformans/gatti Not Reported Not Detected (NotDetected); Cparapsilosis Not Reported Not Detected (NotDetected); E cloacae compx Not Reported Not Detected (NotDetected); Efaecalis Not Reported Not Detected (NotDetected); Efaecium Not Reported Not Detected (NotDetected); Enterobacterales Not Reported Not Detected (NotDetected); Escherichia coli Not Reported Not Detected (NotDetected); H influenzae Not Reported Not Detected (NotDetected); K aerogenes Not Reported Not Detected (NotDetected); Koxytoca Not Reported Not Detected (NotDetected); Kpneumoniae grp Not Reported Not Detected (NotDetected); Lmonocyt Not Reported Not Detected (NotDetected); N meningitidis Not Reported Not Detected (NotDetected); P aeruginosa Not Reported Not Detected (NotDetected); Proteus spp Not Reported Not Detected (NotDetected); Salmonella spp Not Reported Not Detected (NotDetected); Staph lugdunensis Not Reported Not Detected (NotDetected); Staph spp. Not Reported DETECTED (NotDetected); Staphaureus Not Reported DETECTED (NotDetected); Staphepi Not Reported Not Detected (NotDetected); Staphylococcus spp. DETECTED (NotDetected); Stenmaltophilia Not Reported Not Detected (NotDetected); Strep agal(GrpB) Not Reported Not Detected (NotDetected); Strep pneum Not Reported Not Detected (NotDetected); Strep pyog (GrpA) Not Reported Not Detected (NotDetected); Strep spp Not Reported Not Detected (NotDetected)
[2024-01-06] MEDS: CEFEPIME 2,000 MG in SYRINGE 0 ML IV SCH (19:33)
[2024-01-06] MEDS: oxyCODONE HCL IR 5 MG TAB (IMMEDIATE RELEASE) PO PRN (19:34)
[2024-01-06] MEDS: ACETAMINOPHEN 325 MG TAB PO STA (19:45)
[2024-01-06 19:58] LABS: mecAC+MREJ Resistant Gene MRSA DETECTED (NotDetected)
[2024-01-06 20:26] LABS: ANTI-Xa, UFH(UnfractionatedHep 0.16 IU/ml (0.3-0.7)
--- NOTE | 2024-01-06 20:33 | Magnetic Resonance Report ---
Exam(s): MRI T SPINE Without Contrast EXAM: MR Thoracic Spine Without Intravenous Contrast CLINICAL HISTORY: Reason for exam: pain, sepsis. TECHNIQUE: Magnetic resonance images of the thoracic spine without intravenous contrast in multiple planes. COMPARISON: No relevant prior studies available. FINDINGS: Vertebrae: Hemangiomas are seen in the T3 and T5 vertebral bodies. No acute fracture. Discs/spinal canal/neural foramina: There is posterior disc osteophyte complex seen at T11/12 junction indenting on the 90 aspect of the thecal sac and causing mild to moderate spinal canal stenosis. Moderate multilevel degenerative disc disease changes seen in the thoracic spine. Spinal cord: Unremarkable. Normal signal. Soft tissues: Unremarkable. IMPRESSION: 1. No evidence of discitis or osteomyelitis 2. T11/12 posterior disc osteophyte complex causing mild to moderate spinal canal stenosis Electronically signed by: Bunny Veloz MD 01/06/24 20:32 PM
--- NOTE | 2024-01-06 20:41 | Magnetic Resonance Report ---
Exam(s): MRI L SPINE Without Contrast EXAM: MR Lumbar Spine Without Intravenous Contrast CLINICAL HISTORY: Reason for exam: pain, sepsis. TECHNIQUE: Magnetic resonance images of the lumbar spine without intravenous contrast in multiple planes. COMPARISON: No relevant prior studies available. FINDINGS: Vertebrae: No fracture. Spinal cord: Normal signal. Soft tissues: Unremarkable. DISCS/SPINAL CANAL/NEURAL FORAMINA: There is moderate degree of spinal canal stenosis seen at L2/3, L3/4 and L4/5 junction due to degenerative disc disease, posterior disc osteophyte complex and facet joint arthropathy. Severe degenerative disc disease changes seen at L2/3, L3/4, L4/5 and L5/S1 junction. Grade 1 spondylolisthesis seen at L4/5 junction. Mild to moderate degenerative disc disease and disc bulge seen at L5/S1 junction. IMPRESSION: Severe multilevel degenerative disc disease changes in the mid and lower lumbar spine with moderate degree of spinal canal stenosis. Grade 1 L4/5 spondylolisthesis. Electronically signed by: Bunny Veloz MD 01/06/24 20:40 PM
[2024-01-06] MEDS: ACETAMINOPHEN 325 MG TAB ONE (20:47)
[2024-01-06] MEDS: GABAPENTIN 400 MG CAP PO SCH (20:48)
[2024-01-06] MEDS: VANCOMYCIN HCL 1,250 MG in SODIUM CHLORIDE 0.9% 250 ML IV SCH (20:53)
[2024-01-06] MEDS ORDERED: METOPROLOL SUCC 25MG EXT REL TAB PO SCH (21:00)
[2024-01-07] MEDS: ACETAMINOPHEN 500 MG TAB PO SCH (00:29)
[2024-01-07 04:32] LABS: ANTI-Xa, UFH(UnfractionatedHep 0.86 IU/ml (0.3-0.7)
--- NOTE | 2024-01-07 06:45 | Electrocardiogram Report ---
Test Reason : Blood Pressure : */* mmHG Vent. Rate : 149 BPM Atrial Rate : * BPM P-R Int : * ms QRS Dur : 106 ms QT Int : 296 ms P-R-T Axes : * -24 110 degrees QTcB Int : 466 ms Atrial fibrillation with rapid ventricular response Minimal voltage criteria for LVH, may be normal variant ( [place]u product ) Possible Anterior infarct , age undetermined Abnormal ECG When compared with ECG of 23-Jan-2019 11:17, Atrial fibrillation has replaced Sinus rhythm Vent. rate has increased by [address] now depressed in Lateral leads T wave inversion now evident in Lateral leads Confirmed by Aron Estrella ([id number]) on 01/07/2024 6:45:16 AM Referred By: REFERRED SELF Confirmed By: Aron Estrella
--- NOTE | 2024-01-07 06:57 | Electrocardiogram Report ---
Test Reason : Blood Pressure : */* mmHG Vent. Rate : 88 BPM Atrial Rate : 88 BPM P-R Int : 236 ms QRS Dur : 112 ms QT Int : 350 ms P-R-T Axes : 48 -13 38 degrees QTcB Int : 423 ms Sinus rhythm with 1st degree A-V block Minimal voltage criteria for LVH, may be normal variant ( [place] product ) Septal infarct (cited on or before 06-Jan-2024) Abnormal ECG When compared with ECG of 06-Jan-2024 01:44, (unconfirmed) Sinus rhythm has replaced Atrial fibrillation Vent. rate has decreased by 61 bpm Confirmed by Aron Estrella ([id number]) on 01/07/2024 6:57:05 AM Referred By: REFERRED SELF Confirmed By: Aron Estrella
[2024-01-07 07:36] LABS: Basophils # (auto) 0.07 K/uL (0.00-0.20); Basophils % (auto) 0.4 %; Eosinophils # (auto) 0.08 K/uL (0.00-0.50); Eosinophils % (auto) 0.4 %; Hematocrit (blood only) 34.8 % (37.0-47.0); Hemoglobin 11.5 g/dl (12.0-16.0); Immature Granulocytes # (auto) 0.16 K/uL (0.01-0.20); Immature Granulocytes % (auto) 0.9 %; Lymphocytes # (auto) 0.83 K/uL (1.20-3.40); Lymphocytes % (auto) 4.7 %; Mean Corpuscular Hemoglobin 32.7 pg (25.0-34.0); Mean Corpuscular Volume 98.1 fL (80.0-100.0); Mean Platelet Volume 10.2 fL (9.4-12.4); Monocytes # (auto) 1.39 K/uL (0.11-0.59); Monocytes % (auto) 7.8 %; Neutrophils # (auto) 15.25 K/uL (1.40-6.50); Neutrophils % (auto) 85.8 %; Platelet Count 185 K/uL (130-400); RDW Coefficient of Variation 14.5 % (11.5-14.5); RDW Standard Deviation 52.8 fL (36.4-46.3); Red Blood Count 3.52 M/uL (4.20-5.40); White Blood Count 17.78 K/ul (4.8-10.8)
[2024-01-07 07:41] LABS: Calcium 8.2 mg/dl (8.6-10.3); Potassium 4.1 mmol/L (3.5-5.1)
[2024-01-07] MEDS: LORazepam 0.5 MG TAB PO PRN (07:45)
[2024-01-07 07:47] LABS: Creatinine Clr Calc Pharmacy 52.7 ml/min; Est GFR (African American) 52.2 ml/min; Est GFR (Non-African American) 45.1 ml/min
[2024-01-07] MEDS: CALCITRIOL 0.25 MCG CAPSULE PO SCH (08:01)
--- NOTE | 2024-01-07 09:13 | Electrocardiogram Report ---
Test Reason : Blood Pressure : */* mmHG Vent. Rate : 84 BPM Atrial Rate : 84 BPM P-R Int : 244 ms QRS Dur : 110 ms QT Int : 348 ms P-R-T Axes : 46 -12 43 degrees QTcB Int : 411 ms Sinus rhythm with 1st degree A-V block Old Septal infarct (cited on or before 06-Jan-2024) Abnormal ECG When compared with ECG of 06-Jan-2024 08:59, No significant change was found Confirmed by Jameson Aguilar ([id number]) on 01/07/2024 9:13:09 AM Referred By: REFERRED SELF Confirmed By: Jameson Aguilar
--- NOTE | 2024-01-07 09:16 | Electrocardiogram Report ---
Test Reason : Blood Pressure : */* mmHG Vent. Rate : 93 BPM Atrial Rate : 93 BPM P-R Int : 228 ms QRS Dur : 108 ms QT Int : 332 ms P-R-T Axes : 63 1 40 degrees QTcB Int : 412 ms Sinus rhythm with 1st degree A-V block Old Septal infarct (cited on or before 06-Jan-2024) Abnormal ECG When compared with ECG of 07-Jan-2024 05:59, No significant change was found Confirmed by Jameson Aguilar ([id number]) on 01/07/2024 9:15:45 AM Referred By: REFERRED SELF Confirmed By: Jameson Aguilar
--- NOTE | 2024-01-07 11:10 | Cardiology Progress Note ---
Date of Service January 07, 2024 Assessment & Plan (1) Sepsis: (2) Atrial fibrillation with rapid ventricular response: (3) Hypertension: Plan 01/06/24: Patient admitted for fevers, rigors, SOB, back pain and diagnosed with sepsis. Source of infectious process currently unclear. Possible pneumonia on chest xray, although patient does not have significant respiratory symptoms. Blood culture pending x1. Started on broad spectrum antibiotics. Ongoing back pain reported, which patient reports this is chronic issues, but worsened yesterday. Consider spinal CT to r/o discitis? On admission also found to have Atrial fibrillation RVR. Duration unknown but likely due to acute illness/sepsis. Started on IV heparin for stroke prophylaxis. Treated with several doses of IV diltiazem. Converted to NSR around 5:00 AM. Increase oral metoprolol to 50 mg BID (home dose was 50 in AM and 25 mg in PM) [id number] score of 9 (sex, age, HF, HTN, DM, prior thromboembolism, vascular disease). Chronic anticoagulation with Eliquis will be recommended. Continue IV heparin for now, until clear source of infection has been identified? CRP, ESR this morning. Echocardiogram pending. BP uncontrolled this morning. Monitor. Increase metoprolol to 50 mg BID. antihypertensive meds held on admission due to sepsis and potential hypotension. Amlodipine, Losartan and furosemide held on admission Continue ASA and statin given renal artery stents. 01/07/24: No recurrent atrial fibrillation overnight. Continue metoprolol 50 mg BID Continue IV heparin with future transition to Eliquis. Not starting DOAC until clear source of infection is found or sepsis improves. CHADSVASC score of 9. +BC x1 - Staph - Continue IV antibiotics. Lumbar/thoracic MRI yesterday without evidence of discitis or osteomyelitis Will likely need DUANE to r/o endocarditis. Echo with limited visibility of her valves. However, patient acutely too ill for sedation/procedure at this time. Consider Thurs AM Patient is +5 L of fluid since admission given multiple IV medications, IV fluids. 1+ edema noted today Given questionable pneumonia and higher oxygen demand, repeat chest xray Give one dose IV lasix today to keep I+O's equal Uncontrolled hypertension also noted. Antihypertensives were held on admission. IV furosemide this morning. consider resuming low dose amlodipine or losartan (held on admission) Case discussed with Dr. Quintana I spent a total of 40 minutes on the date of service in preparation, delivery, and documentation of the care provided to this patient, excluding any time spent in the performance of separately billed services. Bushra Restrepo PA-C Department of Cardiology, [facility] This chart was completed in part utilizing Speech Voice Recognition Software. Grammatical errors, random word insertions, pronoun errors, and incomplete sentences are an occasional consequence of this system due to software limitations, ambient noise, and hardware issues. Any formal questions or concerns about the content, text, or information contained within the body of this dictation should be directly addressed to the provider for clarification. Admission and Anticipated Discharge Date Admission Date: January 06, 2024 Supervising Physician Co-Signing Physician Notes Attending attestation: Case reviewed with the advanced practitioner. I have personally performed a history and physical examination on the patient. I have reviewed the advanced practitioner's documentation on the date of service referenced in note, and I agree with, and take responsibility for the plan of care. Impression/ Plan: Sepsis- Staph species bacteremia on initial blood culture drawn am of 01/06/24 CRP elevated Agree with vancomycin and cefepime Likely proceed with DUANE on 01/09/24 unless source becomes apparent in the interim. AF- metoprolol succinate 50 mg BID . Continue heparin infusion for stroke prevention. Hold off on Eliquis until need for procedures more clear. I spent a total of 30 minutes coordinating, documenting, and providing care for this patient excluding time spent in the performance of separately billed services or time spent by another provider. Aren Quintana, DO Subjective Patient sleeping in bed and awakened easily. She reports feeling "lousy". She denies chest pain specifically. She notes ongoing shortness of breath but no cough. Fevers Reported overnight But now improved. Her blood pressure has been persistently elevated. No recurrent atrial fibrillation on telemetry. Positive blood culture showing staph was resulted overnight. Review of Systems Review of Systems: All systems reviewed & are unremarkable except as noted in HPI & below Physical Exam Constitutional: + ill appearing and + obese Neck: trachea midline, no thyromegaly Respiratory: no labored breathing Auscultation: + diminished lung sounds and + rhonchi; no crackles Cardiovascular: Rate/Rhythm: regular rate and regular rhythm Heart Sounds: no murmur Vessels: no JVD Extremities: + edema (1+ pedal and pretibial) Gastrointestinal (Abdomen): normal bowel sounds, soft, nontender, no hepatosplenomegaly Neurologic: PERRL, EOMI, accommodation nl, no face palsy, no dysarthria Psychiatric: A+Ox3, euthymic affect Results & Data Vital Signs (Past 12 Hours) Vital Signs Temp Pulse Resp BP Pulse Ox O2 Del Method O2 Flow Rate 01/07/24 09:14 81 166/84 H 01/07/24 08:05 36.6 C 88 21 194/87 H 94 Nasal Cannula 4 01/07/24 07:30 Nasal Cannula 4 01/07/24 02:58 79 114/78 01/07/24 02:42 36.7 C 81 18 196/80 H 91 Nasal Cannula 6 01/07/24 00:34 174/72 H 01/06/24 23:47 36.5 C 77 18 195/75 H 94 Nasal Cannula 6 Laboratory Results Cardiac Enzymes 01/06/24 01/06/24 Range/Units 12:20 19:39 Troponin I High Sens 22.3 H D 22.6 H (0-14) pg/ml CBC 01/07/24 Range/Units 06:59 WBC 17.78 H (4.8-10.8) K/ul RBC 3.52 L (4.20-5.40) M/uL Hgb 11.5 L (12.0-16.0) g/dl Hct 34.8 L (37.0-47.0) % Plt Count 185 (130-400) K/uL Neut # (Auto) 15.25 H (1.40-6.50) K/uL Lymph # (Auto) 0.83 L (1.20-3.40) K/uL [place] # (Auto) 1.39 H (0.11-0.59) K/uL Eos # (Auto) 0.08 (0.00-0.50) K/uL Baso # (Auto) 0.07 (0.00-0.20) K/uL Comprehensive Metabolic Panel 01/07/24 Range/Units 06:59 Sodium 134 L (136-145) mmol/L Potassium 4.1 (3.5-5.1) mmol/L Chloride 107 (98-107) mmol/L Carbon Dioxide 20 L (21-32) mmol/L BUN 29 H (6-23) mg/dl Creatinine 1.16 (0.6-1.2) mg/dl Glucose 154 H (70-99(Fasting)) mg/dl Calcium 8.2 L (8.6-10.3) mg/dl Intake and Output 01/06/24 01/07/24 01/07/24 22:59 06:59 14:59 Intake Total 485.133 / 4207.000 1289.867 / 4207.000 608.333 / 608.333 Output Total 1550 / 0 500 / 2050 Balance -1064.867 / 2157.000 789.867 / 2157.000 608.333 / 608.333 Intake: IV 485.133 / 4207.000 1289.867 / 4207.000 608.333 / 608.333 Heparin Sodium/Dextrose 25,000 210.133 / 500.000 289.867 / 500.000 units In 500 ml @ 0 UNITS/HR IV .Q0M VAN Rx#:[id number] Sodium Chloride 0.9% 1,000 ml @ 1000 / 2000 608.333 / 608.333 125 mls/hr IV .Q8H VAN Rx#: [id number] Vancomycin HCl 1,250 mg In 275 / 275 Sodium Chloride 0.9% 250 ml @ 200 mls/hr IV Q24H VAN Rx#: [id number] Output: Urine 1300 / 1300 Urine Amount (Catheter) 250 / 750 500 / 750 Bob/Indwelling 250 / 750 500 / 750 Other: Other Intake Source sips Weight 116.573 kg Weight Measurement Method Built in [facility] Diagnostic Findings Telemetry reviewed: Normal sinus rhythm at 70 to 80 bpm. No recurrent atrial fibrillation. EKG dated 01/07/24 at 7:36 AM NS with 1st degree AV block old septal infarct No significant change from previous Echo report reviewed dated Jan 06, 2024: Mild concentric LVH. LV wall motion is normal with ejection fraction 60 to 65%. RV is normal in size and function. Aortic valve is suboptimally visualized but appears to be trileaflet in morphology. No significant aortic regurgitation. No significant aortic stenosis. Grade I diastolic dysfunction Thoracic spine MRI reviewed: IMPRESSION: 1. No evidence of discitis or osteomyelitis 2. T11/12 posterior disc osteophyte complex causing mild to moderate spinal canal stenosis Medications Administered Current Inpatient Medications Acetaminophen (Acetaminophen 500 Mg Tab) 1,000 mg PO TID VAN Stop: 02/05/24 20:59 Last Admin: 01/07/24 07:55 Dose: 1,000 mg Aspirin (Aspirin 81 Mg Ectab) 81 mg PO DAILY VAN Stop: 02/05/24 08:59 Last Admin: 01/07/24 08:01 Dose: 81 mg Atorvastatin Calcium (Atorvastatin 20 Mg Tab) 20 mg PO DAILY VAN Stop: 02/05/24 08:59 Last Admin: 01/07/24 08:01 Dose: 20 mg Calcitriol (Calcitriol 0.25 Mcg Capsule) 0.25 mcg PO TuTh@0900 VAN Stop: 02/06/24 08:59 Last Admin: 01/07/24 08:01 Dose: 0.25 mcg Dextrose (Dextrose 50% 50 Ml Syringe) 25 - 50 ml IV UD PRN; Protocol PRN Reason: Hypoglycemia Protocol Stop: 02/05/24 04:53 Fluticasone Propionate (Fluticasone Propionate Na Spr 16 Gm Btl) 1 sprays NA DAILY VAN Stop: 02/05/24 08:59 Last Admin: 01/07/24 10:17 Dose: Not Given Gabapentin (Gabapentin 400 Mg Cap) 400 mg PO PM VAN Stop: 02/05/24 20:59 Last Admin: 01/06/24 20:48 Dose: 400 mg Gabapentin (Gabapentin 800 Mg Tab) 800 mg PO QAM VAN Stop: 02/05/24 08:59 Last Admin: 01/07/24 07:57 Dose: 800 mg Glucagon (Glucagon For Inj 1 Mg Vial) 1 mg SQ UD PRN; Protocol PRN Reason: Hypoglycemia Protocol Stop: 02/05/24 04:53 Glucose (Glucose 40% Gel 15 Gm Tube) 15 - 30 gm PO UD PRN; Protocol PRN Reason: Hypoglycemia Protocol Stop: 02/05/24 04:53 Glucose (Glucose 10 Tab/Tube) 4 - 8 tab PO UD PRN; Protocol PRN Reason: Hypoglycemia Treatment Stop: 02/05/24 04:53 Sodium Chloride (Nss) 1,000 mls @ 125 mls/hr IV .Q8H VAN Stop: 02/05/24 04:53 Last Admin: 01/07/24 07:47 Dose: 125 mls/hr Cefepime HCl 2,000 mg/ Syringe 20 mls @ 5 mls/min IV Q12H [facility]; Protocol Stop: 01/13/24 14:59 Last Admin: 01/07/24 02:56 Dose: 5 mls/min Vancomycin HCl 1,250 mg/ (Sodium Chloride) 275 mls @ 200 mls/hr IV Q24H [facility] Stop: 01/13/24 19:59 Last Infusion: 01/06/24 22:32 Dose: Infused Heparin Sodium/Dextrose (Heparin Sodium/Dextrose) 25,000 units in 500 mls @ 32 mls/hr IV .[id number] [facility]; Protocol Stop: 02/05/24 13:29 Last Admin: 01/07/24 07:07 Dose: 1,600 units/hr, 32 mls/hr Insulin Aspart (Insulin Aspart Per Unit Charge) 0 units SC ACHS [facility] Stop: 02/05/24 20:59 Last Admin: 01/07/24 08:01 Dose: Not Given Lorazepam (Lorazepam 0.5 Mg Tab) 0.5 mg PO TID PRN PRN Reason: Anxiety Stop: 02/05/24 04:53 Last Admin: 01/07/24 07:45 Dose: 0.5 mg Metoprolol Succinate (Metoprolol Succ 50mg Ext Rel Tab) 50 mg PO BID [facility] Stop: 02/05/24 20:59 Last Admin: 01/07/24 07:38 Dose: 50 mg Miscellaneous (Carbohydrates For Hypoglycemia ) 15 - 30 gm PO UD PRN PRN Reason: Hypoglycemia Protocol Stop: 02/05/24 04:53 Miscellaneous Information (Vancomycin Consult Active) 1 each N/A UD PRN PRN Reason: Consult Stop: 02/05/24 02:09 Nitroglycerin (Nitroglycerin Sl 0.4 Mg/Tab Tab) 0.4 mg SL Q5M PRN PRN Reason: Chest Pain Stop: 02/05/24 04:53 Ondansetron HCl (Ondansetron Inj 2 Mg/Ml 2 Ml Vial) 4 mg IV Q4H PRN PRN Reason: Nausea Stop: 02/05/24 09:26 Last Admin: 01/06/24 12:42 Dose: 4 mg Oxycodone HCl (Oxycodone Hcl Ir 5 Mg Tab (Immediate Release)) 5 mg PO Q3H PRN PRN Reason: Pain Stop: 01/20/24 14:27 Last Admin: 01/07/24 07:33 Dose: 5 mg Tramadol HCl (Tramadol Hcl 50 Mg Tablet) 50 mg PO Q6H PRN PRN Reason: Severe Pain (Scale Score 7-10) Stop: 02/05/24 04:53 Last Admin: 01/07/24 07:53 Dose: 50 mg (1) Sepsis Sepsis acute organ dysfunction status: without acute organ dysfunction Sepsis type: sepsis due to unspecified organism Qualified Code(s): A41.9 - Sepsis, unspecified organism (3) Hypertension Hypertension type: renovascular hypertension Qualified Code(s): I15.0 - Renov ascular hypertension
[2024-01-07] MEDS: FUROSEMIDE 40 MG/4 ML VIAL IV ONE (11:43)
--- NOTE | 2024-01-07 12:34 | Infectious Disease Consult ---
Date of Service January 07, 2024 Telehealth Information I performed this visit using a real-time telehealth connection between my location and the patients location ([facility]). After connecting through interactive tele-video, patient was identified by name and date of and/or wristband check.Patient (or authorized healthcare circulation sales representative) was informed that this was a telemedicine visit and it was being conducted confidentially over secure lines. My office door was closed and no one else was present in the room with me.Patient (or authorized healthcare circulation sales representative) provided consent to proceed with the visit, expressed an understanding of privacy and security of the telemedicine visit, and gave permission to have a hospital circulation sales representative in the room in order to assist with the visit and to conduct portions of the visit, as needed. I informed the patient (or authorized healthcare circulation sales representative) that I reviewed their record and presented the opportunity for them to ask any questions regarding the visit today. The patient agreed to participate. Assessment & Plan (1) Bacteremia due to Staphylococcus: Plan: TTE negative on cefepime and vancomycin (2) Acute back pain: Plan: MRI of thoracic and lumbar spine negative for osteomyelitis Plan Recommend discontinuing cefepime and continuing vancomycin pending finalization of her cultures .If her blood cultures do not clear she will require a DUANE and if they clear quickly and there is no obvious source of her staph species bacteremia I would recommend treating for 4 weeks from 1st negative blood cultures.Thank you for allowing us to participate in the care of this patient ID will continue to follow History of Present Illness History of Present Illness 78 y/o F PMHx type 2 diabetes, hyperlipidemia, gout, renal artery stenosis, hypertension, chronic diastolic CHF, CKD stage III, GERD, morbid obesity, primary open angle glaucoma right eye moderate stage, history of MRSA infection, spinal stenosis, history of intraductal papilloma of breast, ATILIO, history of malignant neoplasm of endometrium ,ambulates with walker was brought in by her because of severe back pain and and also at one point she complained of chest pain and in the ER found to have rapid A-fib and fevers. She has chronic back pain but got worse last night. With the pain medication her back pain is improved. She has history of stroke and the vision in her right eye is reduced . Patient was started on cefepime and vancomycin and doxycycline was added for tick born disease .Her blood cultures have grown staph species and her TTE did not reveal any vegetations .Her MRI of thoracic and lumber spine did not reveal osteomyelitis repeat blood cultures in process .Currently on cefepime and vancomycin Allergies Allergy/AdvReac Type Severity Reaction Status Date / Time allopurinol Allergy Mild RASH Verified 10/01/19 09:44 Penicillins Allergy Mild HIVES Verified 10/01/19 09:44 Bactrim Allergy Unknown ANXIETY Verified 09/26/17 08:37 AND HALLUCINATION sulfamethoxazole AdvReac Intermediate ANXIETY Verified 03/23/21 20:14 AND HALLUCINATION trimethoprim AdvReac Intermediate ANXIETY Verified 03/23/21 20:14 AND HALLUCINATION Home Medications Medication Instructions Recorded Confirmed Type amlodipine 5 mg tablet 5 mg PO DAILY 01/06/24 01/06/24 History aspirin 81 mg tablet,delayed 81 mg PO DAILY 01/06/24 01/06/24 History release atorvastatin 20 mg tablet 20 mg PO DAILY 01/06/24 01/06/24 History calcitriol 0.25 mcg capsule 0.25 mcg PO UD 01/06/24 01/06/24 History colchicine 0.6 mg tablet 0.6 mg PO DAILY PRN gout attack 01/06/24 01/06/24 His tory fluticasone propionate 50 1 spray intranasal DAILY 01/06/24 01/06/24 History mcg/actuation nasal spray,suspension gabapentin 400 mg capsule 400 mg PO UD 01/06/24 01/06/24 History lorazepam 0.5 mg tablet 0.5 mg PO TID PRN Anxiety 01/06/24 01/06/24 History meloxicam 15 mg tablet 15 mg PO DAILY PRN Pain 01/06/24 01/06/24 History metoprolol succinate 25 mg 25 mg PO UD 01/06/24 01/06/24 History tablet,extended release 24 hr semaglutide 1 mg/dose (4 mg/3 mL) 1 mg subcut WK 01/06/24 01/06/24 History subcutaneous pen injector (Ozempic) tramadol 50 mg tablet 50 mg PO Q6H PRN Severe Pain 01/06/24 01/06/24 History (Scale Score 7-10) aspirin 81 mg tablet,delayed 81 mg PO DAILY 01/07/24 01/07/24 History release furosemide 20 mg tablet 60 mg PO DAILY 01/07/24 01/07/24 History losartan 100 mg tablet 100 mg PO DAILY 01/07/24 01/07/24 History omeprazole 20 mg capsule,delayed 20 mg PO DAILY 01/07/24 01/07/24 History release Patient History Medical History (Updated 01/07/24 @ 13:41 by Satya Dennis DO) Demand ischemia of myocardium Paroxysmal atrial fibrillation with rapid ventricular response Intraductal papilloma of breast left Morbid obesity Renal artery stenosis status post bilateral renal artery stenting Cancer uterine s/p hysterectomy (no chemo/XRT) Chronic back pain Gout Chronic kidney disease stage III (follows with Dr. Okeefe) GERD (gastroesophageal reflux disease) controlled Diabetes mellitus, type 2 Hypertension Hyperlipidemia Surgical History History of renal stent RIGHT/LEFT History of cataract surgery R/L History of hysterectomy TOTAL History of bilateral tubal ligation History of dilatation and curettage X 2 History of hand surgery RIGHT CYST History of cholecystectomy Fusion of spine LUMBAR Family History Brother Family history of diabetes mellitus Mother Family hx of colon cancer Social History Smoking Status: Never smoker Second Hand Exposure: Yes (SPOUSE SMOKES); Do You Dip or Chew Tobacco: No; Hx Alcohol Use: No Hx Substance Use: No Preferred Language: Azeri Communication Ability: Effective Straight Slicing Machine Operator Required: No Beliefs That Will Affect Care: None Current Living Situation: Spouse Feels Safe at Home: Yes Safety Concerns: Feels Safe At This Time Assistive Devices: Cane and Walker Review of Systems Unable to assess as patient is drowsy Physical Exam drowsy slow breathing no acute respiratory distress Results & Data Vital Signs (Past 12 Hours) Vital Signs Temp Pulse Resp BP Pulse Ox O2 Del Method O2 Flow Rate 01/07/24 11:43 36.8 C 50 L 18 150/76 H 93 Nasal Cannula 4 01/07/24 09:14 81 166/84 H 01/07/24 08:05 36.6 C 88 21 194/87 H 94 Nasal Cannula 4 01/07/24 07:30 Nasal Cannula 4 01/07/24 02:58 79 114/78 01/07/24 02:42 36.7 C 81 18 196/80 H 91 Nasal Cannula 6 01/07/24 00:34 174/72 H Laboratory Results Blood Culture Aerobic Preliminary 01/07/24-1206 Organism 1 Staphylococcus species Sens Sensitivities to Follow Critical results sent via [employer] to Fernandez Pittman On 01/06/24 at 1921 by Ananya Martinez. Confirmed message was read by recipient. Blood Culture Anaerobic Preliminary 01/07/24-1206 Organism 1 Staphylococcus species Sens No Sensitivities to Follow Blood Culture PCR Panel If viewing in EMR, results available under LAB Serology tab. Diagnostic Findings IMPRESSION: 1. No evidence of discitis or osteomyelitis 2. T11/12 posterior disc osteophyte complex causing mild to moderate spinal canal stenosis IMPRESSION: Severe multilevel degenerative disc disease changes in the mid and lower lumbar spine with moderate degree of spinal canal stenosis. Grade 1 L4/5 spondylolisthesis.
--- NOTE | 2024-01-07 12:49 | Anesthesiology Consultation ---
Date of Service January 07, 2024 Assessment & Plan (1) Encounter for pre-operative examination: Chart Review Chart Review: Acceptable Risk for Surgery History Surgery Operation Date: 01/09/24 07:45 Proposed Procedures p Transesophageal Echo w/Anesthesia - Aren Quintana DO Height/Weight Height: 5 ft 7 in Weight: 116.573 kg Allergies Allergy/AdvReac Type Severity Reaction Status Date / Time allopurinol Allergy Mild RASH Verified 10/01/19 09:44 Penicillins Allergy Mild HIVES Verified 10/01/19 09:44 Bactrim Allergy Unknown ANXIETY Verified 09/26/17 08:37 AND HALLUCINATION sulfamethoxazole AdvReac Intermediate ANXIETY Verified 03/23/21 20:14 AND HALLUCINATION trimethoprim AdvReac Intermediate ANXIETY Verified 03/23/21 20:14 AND HALLUCINATION Medications Home Medications Medication Instructions Recorded Confirmed Last Taken amlodipine 5 mg tablet 5 mg PO DAILY 01/06/24 01/06/24 Unknown aspirin 81 mg tablet,delayed 81 mg PO DAILY 01/06/24 01/06/24 Unknown release atorvastatin 20 mg tablet 20 mg PO DAILY 01/06/24 01/06/24 Unknown calcitriol 0.25 mcg capsule 0.25 mcg PO UD 01/06/24 01/06/24 Unknown colchicine 0.6 mg tablet 0.6 mg PO DAILY PRN gout attack 01/06/24 01/06/24 Unknown fluticasone propionate 50 1 spray intranasal DAILY 01/06/24 01/06/24 Unknown mcg/actuation nasal spray,suspension gabapentin 400 mg capsule 400 mg PO UD 01/06/24 01/06/24 Unknown lorazepam 0.5 mg tablet 0.5 mg PO TID PRN Anxiety 01/06/24 01/06/24 Unknown meloxicam 15 mg tablet 15 mg PO DAILY PRN Pain 01/06/24 01/06/24 Unknown metoprolol succinate 25 mg 25 mg PO UD 01/06/24 01/06/24 Unknown tablet,extended release 24 hr semaglutide 1 mg/dose (4 mg/3 mL) 1 mg subcut WK 01/06/24 01/06/24 Unknown subcutaneous pen injector (Ozempic) tramadol 50 mg tablet 50 mg PO Q6H PRN Severe Pain 01/06/24 01/06/24 Unknown (Scale Score 7-10) aspirin 81 mg tablet,delayed 81 mg PO DAILY 01/07/24 01/07/24 Unknown release furosemide 20 mg tablet 60 mg PO DAILY 01/07/24 01/07/24 Unknown losartan 100 mg tablet 100 mg PO DAILY 01/07/24 01/07/24 Unknown omeprazole 20 mg capsule,delayed 20 mg PO DAILY 01/07/24 01/07/24 Unknown release Active Medications Generic Name Dose Route Start Last Admin Trade Name Lilian PRN Reason Stop Dose Admin Acetaminophen 1,000 mg 01/06/24 21:00 01/07/24 07:55 Acetaminophen 500 Mg Tab PO 02/05/24 20:59 1,000 mg TID VAN Administration Aspirin 81 mg 01/06/24 09:00 01/07/24 08:01 Aspirin 81 Mg Ectab PO 02/05/24 08:59 81 mg DAILY VAN Administration Atorvastatin Calcium 20 mg 01/06/24 09:00 01/07/24 08:01 Atorvastatin 20 Mg Tab PO 02/05/24 08:59 20 mg DAILY VAN Administration Calcitriol 0.25 mcg 01/07/24 09:00 01/07/24 08:01 Calcitriol 0.25 Mcg Capsule PO 02/06/24 08:59 0.25 mcg TuTh@0900 VAN Administration Fluticasone Propionate 1 sprays 01/06/24 09:00 01/07/24 10:17 Fluticasone Propionate Na Spr 16 Gm Btl NA 02/05/24 08:59 Not Given DAILY VAN Gabapentin 400 mg 01/06/24 21:00 01/06/24 20:48 Gabapentin 400 Mg Cap PO 02/05/24 20:59 400 mg PM VAN Administration Gabapentin 800 mg 01/06/24 09:00 01/07/24 07:57 Gabapentin 800 Mg Tab PO 02/05/24 08:59 800 mg QAM VAN Administration Sodium Chloride 1,000 mls @ 125 mls/hr 01/06/24 04:54 01/07/24 12:49 Nss IV 02/05/24 04:53 125 mls/hr .Q8H VAN Administration Cefepime HCl 2,000 mg/ Syringe 20 mls @ 5 mls/min 01/06/24 15:00 01/07/24 02:56 IV 01/13/24 14:59 5 mls/min Q12H VAN Administration Protocol Vancomycin HCl 1,250 mg/ 275 mls @ 200 mls/hr 01/06/24 20:00 01/06/24 22:32 Sodium Chloride IV 01/13/24 19:59 Infused Q24H VAN Infusion Heparin Sodium/Dextrose 25,000 units in 500 mls @ 32 mls/hr 01/06/24 13:30 01/07/24 12:29 Heparin Sodium/Dextrose IV 02/05/24 13:29 1,600 units/hr .[id number] VAN 32 mls/hr Titration Protocol 1,600 UNITS/HR Insulin Aspart 0 units 01/06/24 21:00 01/07/24 12:47 Insulin Aspart Per Unit Charge SC 02/05/24 20:59 1 units ACHS VAN Administration Lorazepam 0.5 mg 01/06/24 04:54 01/07/24 07:45 Lorazepam 0.5 Mg Tab PO 02/05/24 04:53 0.5 mg TID PRN Administration Anxiety Metoprolol Succinate 50 mg 01/06/24 21:00 01/07/24 07:38 Metoprolol Succ 50mg Ext Rel Tab PO 02/05/24 20:59 50 mg BID VAN Administration Ondansetron HCl 4 mg 01/06/24 09:27 01/06/24 12:42 Ondansetron Inj 2 Mg/Ml 2 Ml Vial IV 02/05/24 09:26 4 mg Q4H PRN Administration Nausea Oxycodone HCl 5 mg 01/06/24 14:28 01/07/24 11:41 Oxycodone Hcl Ir 5 Mg Tab (Immediate Release) PO 01/20/24 14:27 5 mg Q3H PRN Administration Pain Tramadol HCl 50 mg 01/06/24 04:54 01/07/24 07:53 Tramadol Hcl 50 Mg Tablet PO 02/05/24 04:53 50 mg Q6H PRN Administration Severe Pain (Scale Score 7-10) Past Medical History Medical History (Updated 01/07/24 @ 12:49 by Chong Suazo MD) Demand ischemia of myocardium Paroxysmal atrial fibrillation with rapid ventricular response Intraductal papilloma of breast left Morbid obesity Renal artery stenosis status post bilateral renal artery stenting Cancer uterine s/p hysterectomy (no chemo/XRT) Chronic back pain Gout Chronic kidney disease stage III (follows with Dr. Okeefe) GERD (gastroesophageal reflux disease) controlled Diabetes mellitus, type 2 Hypertension Hyperlipidemia Past Family History Family History Brother Family history of diabetes mellitus Mother Family hx of colon cancer Past Surgical History Surgical History History of renal stent RIGHT/LEFT History of cataract surgery R/L History of hysterectomy TOTAL History of bilateral tubal ligation History of dilatation and curettage X 2 History of hand surgery RIGHT CYST History of cholecystectomy Fusion of spine LUMBAR Social History Smoking Status: Never smoker Do You Dip or Chew Tobacco: No Hx Alcohol Use: No Hx Substance Use: No Physical Exam Vital Signs Last Vital Signs Temp 36.8 C 01/07/24 11:43 Pulse 50 L 01/07/24 11:43 Resp 18 01/07/24 11:43 BP 150/76 H 01/07/24 11:43 Pulse Ox 93 01/07/24 11:43 O2 Del Method Nasal Cannula 01/07/24 11:43 O2 Flow Rate 4 01/07/24 11:43 Testing Laboratory Results 01/07/24 06:59 01/07/24 06:59 PT 11.7 Seconds (9.0-12.0) 01/06/24 01:50 INR 1.1 (0.9-1.1) 01/06/24 01:50 APTT 30 Seconds (21-31) 01/06/24 01:50 Urine Color Dark Yellow 01/06/24 02:20 Urine Appearance Cloudy (Clear) A 01/06/24 02:20 Urine pH 5.5 (4.5-7.5) 01/06/24 02:20 Ur Specific [place] 1.022 (1.000-1.030) 01/06/24 02:20 Urine Protein 4+ (Negative) H 01/06/24 02:20 Urine Glucose (UA) Negative (Negative) 01/06/24 02:20 Urine Ketones Trace (Negative) H 01/06/24 02:20 Urine Nitrite Negative (Negative) 01/06/24 02:20 Ur Leukocyte Esterase Negative (Negative) 01/06/24 02:20 Urine WBC (Auto) 0-5 /hpf (0-5) 01/06/24 02:20 Urine RBC (Auto) 0-2 /hpf (0-2) 01/06/24 02:20 U Hyaline Cast (Auto) 6-10 /lpf (0-2) H 01/06/24 02:20 U Epithel Cells (Auto) 3-5 /hpf (0-2) H 01/06/24 02:20 Urine Bacteria (Auto) None Seen (None Seen) 01/06/24 02:20 01/06/24 02:57 Aerobic Blood Culture - Preliminary Blood Staphylococcus species Anaerobic Blood Culture - Preliminary Staphylococcus species 01/07/24 01/07/24 11:40 07:20 POC Glucose 175 H 138 H Electrocardiogram Date: 01/07/24 Findings: + NSR @ (93) old septal infarct Echocardiogram Date: 01/06/24 EF: 60-65% LV Function: normal Valvular Disease: + no significant valvular disease
--- NOTE | 2024-01-07 13:45 | Hospitalist Progress Note ---
Date of Service January 07, 2024 Assessment & Plan (1) Severe sepsis with acute organ dysfunction: (2) Bacteremia due to Staphylococcus: (3) Paroxysmal atrial fibrillation with rapid ventricular response: Plan: Converted to sinus rhythm (4) Spinal stenosis excluding cervical region: (5) Demand ischemia of myocardium: (6) Acute back pain: (7) Diabetes mellitus, type 2: (8) Morbid obesity: (9) Chronic kidney disease: Plan Patient with severe sepsis and organ dysfunction due to Staphylococcus bacteremia. Paroxysmal atrial fibrillation in the setting of sepsis now converted to sinus rhythm Patient remains critically ill, but improving. Requires specialty consultation, IV medications and continuing monitoring Infectious disease consultation, reviewed recommendations, continue vancomycin, consider DUANE if bacteremia does not clear quickly Cardiology consultation noted, possible DUANE on if needed, continuing heparin Pain control for spinal stenosis Therapies Follow laboratory studies Updated Admission and Anticipated Discharge Date Admission Date: January 06, 2024 Subjective Patient still somewhat uncomfortable. Back pain, chest pain, generalized arthralgias and myalgias Physical Exam Physical Exam: Constitutional: Alert, moderately toxic in appearance HEENT: Mucous membranes moist. Lungs: Decreased breath sounds few crackles at bases CV: S1-S2, regular Abdomen: Soft, nontender, nondistended Extremities: No significant edema Musculoskeletal: Reproducible chest pain to palpation, costochondral pain bilaterally Paravertebral muscular spasms and tenderness Derm: No open wounds noted Neuro: No focal deficits Psych: Cooperative, normal mood Results & Data Results & Data Vital Signs (Past 12 Hours) Vital Signs Temp Pulse Resp BP Pulse Ox O2 Del Method O2 Flow Rate 01/07/24 11:43 36.8 C 50 L 18 150/76 H 93 Nasal Cannula 4 01/07/24 09:14 81 166/84 H 01/07/24 08:05 36.6 C 88 21 194/87 H 94 Nasal Cannula 4 01/07/24 07:30 Nasal Cannula 4 01/07/24 02:58 79 114/78 01/07/24 02:42 36.7 C 81 18 196/80 H 91 Nasal Cannula 6 Diagnostic Findings Reviewed imaging, laboratory and diagnostic studies. Pertinent findings as below. MRI thoracic lumbar spine no evidence of infection, osteomyelitis, discitis did show some spinal stenosis lumbar spine and T8 11 T12 Blood culture positive for Staphylococcus WBCs 7.7, improved Personally reviewed EKG sinus rhythm maintained, first-degree AV block Personally reviewed chest x-ray, increasing infiltrate left lower lobe with some pulmonary congestion throughout. Formal radiology interpretation pending
--- NOTE | 2024-01-07 16:34 | XRay Report ---
XR chest 1V portable HISTORY: sepsis/pneumonia COMPARISON: Chest 01/06/2024. FINDINGS: No pneumothorax. Low lung volumes. The heart remains mildly enlarged. There is mild central pulmonary vascular congestion without overt edema. Left basilar linear densities persist. IMPRESSION: 1. Cardiomegaly with mild central pulmonary vascular congestion. 2. Left lower lobe linear densities persist. This may represent subsegmental atelectasis. A left lowe r lobe pneumonitis also remains in the differential diagnosis. ACT 112: Negative or not required by law. Electronically signed by: Parviz Javier M.D. 01/07/2024 4:33 PM
[2024-01-08] MEDS: CYCLOBENZAPRINE HCL 10 MG TAB PO STA (01:52)
[2024-01-08 05:46] LABS: Hematocrit (blood only) 34.2 % (37.0-47.0); Hemoglobin 11.5 g/dl (12.0-16.0); Mean Corpuscular Hemoglobin 31.4 pg (25.0-34.0); Mean Corpuscular Hgb Conc 33.6 g/dL (32.0-36.0); Mean Corpuscular Volume 93.4 fL (80.0-100.0); Platelet Count 256 K/uL (130-400); RDW Coefficient of Variation 13.8 % (11.5-14.5); RDW Standard Deviation 47.5 fL (36.4-46.3); Red Blood Count 3.66 M/uL (4.20-5.40)
[2024-01-08 06:01] LABS: BUN Creatinine Ratio 25.2 (10-20); Calcium 8.9 mg/dl (8.6-10.3); Creatinine Clr Calc Pharmacy 53.2 ml/min; Est GFR (African American) 52.8 ml/min; Est GFR (Non-African American) 45.5 ml/min; Magnesium 1.9 mg/dl (1.7-2.4); Potassium 3.9 mmol/L (3.5-5.1)
[2024-01-08 06:08] LABS: ANTI-Xa, UFH(UnfractionatedHep 0.35 IU/ml (0.3-0.7)
--- NOTE | 2024-01-08 09:50 | Hospitalist Progress Note ---
Date of Service January 08, 2024 Assessment & Plan (1) Severe sepsis with acute organ dysfunction: (2) Bacteremia due to Staphylococcus: (3) Paroxysmal atrial fibrillation with rapid ventricular response: Plan: Converted to sinus rhythm (4) Uncontrolled hypertension: (5) Spinal stenosis excluding cervical region: (6) Demand ischemia of myocardium: (7) Acute back pain: (8) Diabetes mellitus, type 2: (9) Morbid obesity: (10) Chronic kidney disease: Plan Patient with staph bacteremia of unclear source, surveillance blood cultures positive as well. Remains ill requiring hospital level care Continue vancomycin per ID recommendations Repeat blood cultures Anticipate DUANE tomorrow Norvasc added by cardiology for better blood pressure control Give additional IV Lasix Continue to monitor CBC and BMP Activity as tolerated, continue therapies Heating pad for musculoskeletal pain Glucoses reviewed, good control, continue current management Patient will need ongoing anticoagulation, currently on IV heparin, transition to Eliquis as directed by cardiology Voicemail at 's phone Admission and Anticipated Discharge Date Admission Date: January 06, 2024 Subjective Patient complaining of neck pain due to positioning. Her overall states that she feels may be slightly improved. Physical Exam Physical Exam: Constitutional: Alert, nontoxic in appearance HEENT: Mucous membranes moist. Lungs: Clear to auscultation, decreased, no wheezes rales or rhonchi CV: S1-S2, regular Abdomen: Soft, nontender, nondistended Extremities: Trace pretibial edema Neuro: No focal deficits Musculoskeletal: Chronic musculoskeletal back pain Psych: Cooperative, normal mood Results & Data Results & Data Vital Signs (Past 12 Hours) Vital Signs Temp Pulse Pulse Resp BP BP Pulse Ox 01/08/24 07:14 36.8 C 83 19 213/85 H 96 01/08/24 03:00 36.6 C 68 12 187/71 H 96 01/07/24 23:34 64 01/07/24 23:00 36.5 C 67 11 L 175/72 H 96 O2 Del Method O2 Flow Rate 01/08/24 07:14 Nasal Cannula 4 01/08/24 03:00 Nasal Cannula 4 01/07/24 23:34 01/07/24 23:00 Nasal Cannula 4 Diagnostic Findings Reviewed imaging, laboratory and diagnostic studies. Pertinent findings as below. Initial blood cultures growing staph species, repeat blood culture growing similar. Personally reviewed chest x-ray some congestion WBCs 18.4 Hemoglobin 11.5 Creatinine 1.1 Glucose 159
[2024-01-08] MEDS: amLODIPine BESYLATE 5 MG TAB PO SCH (09:51)
--- NOTE | 2024-01-08 10:15 | Cardiology Progress Note ---
Date of Service January 08, 2024 Assessment & Plan (1) Sepsis: (2) Atrial fibrillation with rapid ventricular response: (3) Hypertension: (4) Altered mental status: Plan 01/06/24: Patient admitted for fevers, rigors, SOB, back pain and diagnosed with sepsis. Source of infectious process currently unclear. Possible pneumonia on chest xray, although patient does not have significant respiratory symptoms. Blood culture pending x1. Started on broad spectrum antibiotics. Ongoing back pain reported, which patient reports this is chronic issues, but worsened yesterday. Consider spinal CT to r/o discitis? On admission also found to have Atrial fibrillation RVR. Duration unknown but likely due to acute illness/sepsis. Started on IV heparin for stroke prophylaxis. Treated with several doses of IV diltiazem. Converted to NSR around 5:00 AM. Increase oral metoprolol to 50 mg BID (home dose was 50 in AM and 25 mg in PM) [id number] score of 9 (sex, age, HF, HTN, DM, prior thromboembolism, vascular disease). Chronic anticoagulation with Eliquis will be recommended. Continue IV heparin for now, until clear source of infection has been identified? CRP, ESR this morning. Echocardiogram pending. BP uncontrolled this morning. Monitor. Increase metoprolol to 50 mg BID. antihypertensive meds held on admission due to sepsis and potential hypotension. Amlodipine, Losartan and furosemide held on admission Continue ASA and statin given renal artery stents. 01/07/24: No recurrent atrial fibrillation overnight. Continue metoprolol 50 mg BID Continue IV heparin with future transition to Eliquis. Not starting DOAC until clear source of infection is found or sepsis improves. CHADSVASC score of 9. +BC x1 - Staph - Continue IV antibiotics. Lumbar/thoracic MRI yesterday without evidence of discitis or osteomyelitis Will likely need DUANE to r/o endocarditis. Echo with limited visibility of her valves. However, patient acutely too ill for sedation/procedure at this time. Consider Thurs AM Patient is +5 L of fluid since admission given multiple IV medications, IV fluids. 1+ edema noted today Given questionable pneumonia and higher oxygen demand, repeat chest xray Give one dose IV lasix today to keep I+O's equal Uncontrolled hypertension also noted. Antihypertensives were held on admission. IV furosemide this morning. consider resuming low dose amlodipine or losartan (held on admission) 01/08/24: Patient with worsening mental status this morning. Possible left sided weakness of the upper and lower extremity. Slurred speech, confusion noted on exam. Significantly hypertensive this morning with BP > 200. Has been on IV heparin for Afib earlier this admission. Stroke alert called - stat CT of the head ordered 10 mg IV labetolol x1 dose IV heparin placed on hold. No recurrent afib since 01/06/24 +BC noted yesterday - Staph Repeat BC also positive. ID consulted Continue IV antibiotics. Plans for possible future DUANE later this week after mental status improves to r/o endocarditis. Further recommendations pending results of Head CT. Dr. Quintana had been called to bedside given concerns of altered mental status Case discussed with Dr. Quintana I spent a total of 45 minutes on the date of service in preparation, delivery, and documentation of the care provided to this patient, excluding any time spent in the performance of separately billed services. Bushra Restrepo PA-C Department of Cardiology, [facility] This chart was completed in part utilizing Speech Voice Recognition Software. Grammatical errors, random word insertions, pronoun errors, and incomplete sentences are an occasional consequence of this system due to software limitations, ambient noise, and hardware issues. Any formal questions or concerns about the content, text, or information contained within the body of this dictation should be directly addressed to the provider for clarification. Case discussed with Dr. Quintana I spent a total of 40 minutes on the date of service in preparation, delivery, and documentation of the care provided to this patient, excluding any time spent in the performance of separately billed services. Bushra Restrepo PA-C [facility] of Cardiology, [facility] This chart was completed in part utilizing Speech Voice Recognition Software. Grammatical errors, random word insertions, pronoun errors, and incomplete sentences are an occasional consequence of this system due to software limitations, ambient noise, and hardware issues. Any formal questions or concerns about the content, text, or information contained within the body of this dictation should be directly addressed to the provider for clarification. Admission and Anticipated Discharge Date Admission Date: January 06, 2024 Supervising Physician Co-Signing Physician Notes Attending attestation: Case reviewed with the advanced practitioner. I have personally performed a history and physical examination on the patient. I have reviewed the advanced practitioner's documentation on the date of service referenced in note, and I agree with, and take responsibility for the plan of care. Patient assessed via stroke alert telemedicine protocol due to concerns of change in mental status, left-sided weakness. Had received a dose of oxycodone last night and again this morning as well as a dose of Flexeril for back/neck pain. Systolic blood pressure markedly elevated with a reading of 224 mmHg at the time of my assessment. Patient received a dose of labetalol 10 mg IV x 1. Stat noncontrast CT of the brain, CT angiogram negative. No evidence of acute intracranial hemorrhage. IV heparin placed on hold and will transition to subcutaneous heparin for DVT prophylaxis. Remains in sinus rhythm. Symptoms partially improved with receiving Narcan. Neurology input noted and appreciated. Will plan on an MRI of the brain. If negative , and patient's status continues to improve, we will plan for DUANE tomorrow. Depending upon DUANE findings, if new stroke found, we will likely empirically treat with 4 weeks of antibiotics for presumed endocarditis with septic cerebral emboli. Amlodipine reinitiated with dose increased. Case discussed at length with Dr[facility] for the purpose of coordination of care. I spent a total of 30 minutes coordinating, documenting, and providing care for this patient excluding time spent in the performance of separately billed services or time spent by another provider. Aren Quintana, DO Subjective Patient more confused this morning. Not answering questions appropriately. Mildly slurred speech? Possible left arm and leg weakness. She was reporting severe neck pain last night. Received Flexeril at 1:00 AM. Received oxycodone this morning. Nursing reports more confusion today. Review of Systems Review of Systems: All systems reviewed & are unremarkable except as noted in HPI & below Physical Exam Constitutional: + lethargic Neck: trachea midline, no thyromegaly Respiratory: no labored breathing Auscultation: + diminished lung sounds and + rhonchi; no crackles Cardiovascular: Rate/Rhythm: regular rate and regular rhythm Heart Sounds: no murmur Vessels: no JVD Extremities: + edema (1+ pedal and pretibial) Gastrointestinal (Abdomen): normal bowel sounds, soft, nontender, no hepatosplenomegaly Neurologic: + confused; + does not move all extremit ies (left sided weakness of upper and lower extrmity) Results & Data Vital Signs (Past 12 Hours) Vital Signs Temp Pulse Pulse Resp BP BP Pulse Ox 09/18/24 07:14 36.8 C 83 19 213/85 H 96 01/08/24 03:00 36.6 C 68 12 187/71 H 96 01/07/24 23:34 64 01/07/24 23:00 36.5 C 67 11 L 175/72 H 96 O2 Del Method O2 Flow Rate 01/08/24 07:14 Nasal Cannula 4 01/08/24 03:00 Nasal Cannula 4 01/07/24 23:34 01/07/24 23:00 Nasal Cannula 4 Laboratory Results CBC 01/08/24 Range/Units 05:25 WBC 18.40 H (4.8-10.8) K/ul RBC 3.66 L (4.20-5.40) M/uL Hgb 11.5 L (12.0-16.0) g/dl Hct 34.2 L (37.0-47.0) % Plt Count 256 (130-400) K/uL Comprehensive Metabolic Panel 01/08/24 Range/Units 05:25 Sodium 134 L (136-145) mmol/L Potassium 3.9 (3.5-5.1) mmol/L Chloride 104 (98-107) mmol/L Carbon Dioxide 22 (21-32) mmol/L BUN 29 H (6-23) mg/dl Creatinine 1.15 (0.6-1.2) mg/dl Glucose 147 H (70-99(Fasting)) mg/dl Calcium 8.9 (8.6-10.3) mg/dl Intake and Output 01/07/24 01/08/24 01/08/24 22:59 06:59 14:59 Intake Total 1543.417 / 4224.983 1272.333 / 4224.983 1012.933 / 1012.933 Output Total 1025 / 1375 350 / 1375 Balance 518.417 / 2849.983 922.333 / 2849.983 1012.933 / 1012.933 Intake: IV 1423.417 / 3984.983 1152.333 / 3984.983 1012.933 / 1012.933 Heparin Sodium/Dextrose 25,000 288.0 / 737.066 277.333 / 737.066 129.6 / 129.6 units In 500 ml @ 1,600 UNITS/ HR 32 mls/hr IV .[id number] [facility] Rx #:[id number] Sodium Chloride 0.9% 1,000 ml @ 860.417 / 2972.917 875 / 2972.917 883.333 / 883.333 125 mls/hr IV .Q8H [facility] Rx#: [id number] Vancomycin HCl 1,250 mg In 275 / 275 Sodium Chloride 0.9% 250 ml @ 200 mls/hr IV Q24H VAN Rx#: [id number] Oral 120 / 240 120 / 240 Output: Urine Amount (Catheter) 1025 / 1375 350 / 1375 Bob/Indwelling 1025 / 1375 350 / 1375 Other: Weight 117.8 kg Weight Measurement Method Built in [facility] Diagnostic Findings Telemetry reviewed: NSR. No atrial fibrillation Medications Administered Current Inpatient Medications Acetaminophen (Acetaminophen 500 Mg Tab) 1,000 mg PO TID VAN Stop: 02/05/24 20:59 Last Admin: 01/08/24 08:54 Dose: 1,000 mg Amlodipine Besylate (Amlodipine Besylate 5 Mg Tab) 5 mg PO QAM VAN Stop: 02/07/24 09:14 Last Admin: 01/08/24 09:51 Dose: 5 mg Aspirin (Aspirin 81 Mg Ectab) 81 mg PO DAILY VAN Stop: 02/05/24 08:59 Last Admin: 01/08/24 08:55 Dose: 81 mg Atorvastatin Calcium (Atorvastatin 20 Mg Tab) 20 mg PO DAILY VAN Stop: 02/05/24 08:59 Last Admin: 01/08/24 08:55 Dose: 20 mg Calcitriol (Calcitriol 0.25 Mcg Capsule) 0.25 mcg PO TuTh@0900 VAN Stop: 02/06/24 08:59 Last Admin: 01/07/24 08:01 Dose: 0.25 mcg Dextrose (Dextrose 50% 50 Ml Syringe) 25 - 50 ml IV UD PRN; Protocol PRN Reason: Hypoglycemia Protocol Stop: 02/05/24 04:53 Fluticasone Propionate (Fluticasone Propionate Na Spr 16 Gm Btl) 1 sprays NA DAILY VAN Stop: 02/05/24 08:59 Last Admin: 01/08/24 08:55 Dose: 1 sprays Gabapentin (Gabapentin 400 Mg Cap) 400 mg PO PM VAN Stop: 02/05/24 20:59 Last Admin: 01/07/24 19:42 Dose: 400 mg Gabapentin (Gabapentin 800 Mg Tab) 800 mg PO QAM [facility] Stop: 02/05/24 08:59 Last Admin: 01/08/24 07:40 Dose: 800 mg Glucagon (Glucagon For Inj 1 Mg Vial) 1 mg SQ UD PRN; Protocol PRN Reason: Hypoglycemia Protocol Stop: 02/05/24 04:53 Glucose (Glucose 40% Gel 15 Gm Tube) 15 - 30 gm PO UD PRN; Protocol PRN Reason: Hypoglycemia Protocol Stop: 02/05/24 04:53 Glucose (Glucose 10 Tab/Tube) 4 - 8 tab PO UD PRN; Protocol PRN Reason: Hypoglycemia Treatment Stop: 02/05/24 04:53 Vancomycin HCl 1,250 mg/ (Sodium Chloride) 275 mls @ 200 mls/hr IV Q24H [facility] Stop: 01/13/24 19:59 Last Infusion: 01/07/24 21:06 Dose: Infused Heparin Sodium/Dextrose (Heparin Sodium/Dextrose) 25,000 units in 500 mls @ 0 mls/hr IV .Q0M [facility]; Protocol Stop: 02/05/24 13:29 Last Titration: 01/08/24 10:12 Dose: 0 units/hr, 0 mls/hr Insulin Aspart (Insulin Aspart Per Unit Charge) 0 units SC ACHS [facility] Stop: 02/05/24 20:59 Last Admin: 01/08/24 08:54 Dose: 1 units Lorazepam (Lorazepam 0.5 Mg Tab) 0.5 mg PO TID PRN PRN Reason: Anxiety Stop: 02/05/24 04:53 Last Admin: 01/08/24 08:55 Dose: 0.5 mg Metoprolol Succinate (Metoprolol Succ 50mg Ext Rel Tab) 50 mg PO BID [facility] Stop: 02/05/24 20:59 Last Admin: 01/08/24 08:55 Dose: 50 mg Miscellaneous (Carbohydrates For Hypoglycemia ) 15 - 30 gm PO UD PRN PRN Reason: Hypoglycemia Protocol Stop: 02/05/24 04:53 Miscellaneous Information (Vancomycin Consult Active) 1 each N/A UD PRN PRN Reason: Consult Stop: 02/05/24 02:09 Nitroglycerin (Nitroglycerin Sl 0.4 Mg/Tab Tab) 0.4 mg SL Q5M PRN PRN Reason: Chest Pain Stop: 02/05/24 04:53 Ondansetron HCl (Ondansetron Inj 2 Mg/Ml 2 Ml Vial) 4 mg IV Q4H PRN PRN Reason: Nausea Stop: 02/05/24 09:26 Last Admin: 01/06/24 12:42 Dose: 4 mg Oxycodone HCl (Oxycodone Hcl Ir 5 Mg Tab (Immediate Release)) 5 mg PO Q3H PRN PRN Reason: Pain Stop: 01/20/24 14:27 Last Admin: 01/08/24 07:40 Dose: 5 mg Tramadol HCl (Tramadol Hcl 50 Mg Tablet) 50 mg PO Q6H PRN PRN Reason: Severe Pain (Scale Score 7-10) Stop: 02/05/24 04:53 Last Admin: 01/07/24 14:44 Dose: 50 mg (1) Sepsis Sepsis acute organ dysfunction status: without acute organ dysfunction Sepsis type: sepsis due to unspecified organism Qualified Code(s): A41.9 - Sepsis, unspecified organism (3) Hypertension Hypertension type: renovascular hypertension Qualified Code(s): I15.0 - Renovascular hypertension
[2024-01-08] MEDS: OPTIRAY 320 125ml IV ONE (10:32)
--- NOTE | 2024-01-08 10:44 | CT Scan Report ---
CT OF THE HEAD WITHOUT CONTRAST CLINICAL HISTORY: Left-sided weakness. COMPARISON STUDY: MRI of the brain March 23, 2021. Head CT January 06, 2024. CT DOSE: 625.8 mGy.cm TECHNIQUE: Helical axial images of the head were obtained without IV contrast. Automated exposure con trol was utilized for the study. A dose lowering technique was utilized adhering to the principles o f ALARA. FINDINGS: No acute intracranial hemorrhage, midline shift or mass effect is present. White matter hyp odensities are unchanged since prior exam and favor small vessel disease. The ventricular system is u nremarkable. The basal cisterns are patent. No extra-axial collections are present. There are no find ings to suggest acute dural sinus thrombosis or acute territorial infarct. There are no calvarial fra ctures. There is mild sinus mucosal thickening. Left mastoid air cells are partially opacified. A meliton cified extra-axial lesion overlying the left sphenoid wing favors a meningioma. IMPRESSION: No acute intracranial findings. ACT 112: Negative or not required by law. Electronically signed by: Misha Wilkinson M.D. 01/08/2024 10:43 AM
[2024-01-08] MEDS: LABETALOL HCL IV 5 MG/ML 20ML IV STA (10:45)
[2024-01-08] MEDS: FUROSEMIDE 40 MG/4 ML VIAL IV ONE (10:47)
--- NOTE | 2024-01-08 10:51 | CT Scan Report ---
CT angio head w con, CT angio neck with con CLINICAL HISTORY: 78 years-old Female with stroke protocol. Acute strokelike symptoms COMPARISON STUDY: Head CT of same day, head CT 01/06/2024 brain MRI 03/23/2021 TECHNIQUE: Following the IV administration of 119 cc of Optiray, CT angiogram of the brain head and n cleve was performed. Images are reviewed in the axial, sagittal, and coronal planes. 3-D MIPS images ar e created and assessed. IV contrast was administered without complication. All measurements were obta ined according to NASCET criteria. A dose lowering technique was utilized adhering to the principles of ALARA. CT DOSE: 464.34 mGy.cm FINDINGS: 1.2 cm calcified meningioma adjacent to the left frontal lobe redemonstrated. Prior bilateral lens re pair. Involutional changes with chronic microvascular ischemic disease. Mild mucosal thickening of th e paranasal sinuses. Heterogeneous thyroid. Lung apices are clear without pneumothorax. No acute frac ture identified. CT ANGIOGRAM OF THE HEAD AND NECK: Atherosclerosis of the aorta. Patency of the common and internal carotid arteries. There is moderate atherosclerosis of the right carotid bulb and proximal right ICA resulting in less than 50% stenosis. The bilateral anterior and middle cerebral arteries are also patent. The vertebrobasilar system and posterior cerebral arteries are widely patent. There is no aneurysm, high-grade stenosis, or proximal branch occlusion identified. Dural sinuses appear patent. IMPRESSION: Unremarkable CTA of the head and neck without aneurysm, dissection, high-grade stenosis o r arterial occlusion. ACT 112: Negative or not required by law. The above report was generated using voice recognition software. It may contain grammatical, syntax o r spelling errors. Electronically signed by: Gustavo Charles M.D. 01/08/2024 10:50 AM
[2024-01-08] MEDS: NALOXONE HCL 0.4 MG/1 ML VIAL/CARP IV STA (11:00)
[2024-01-08] MEDS ORDERED: PHARMACIST DISCHARGE MED REC CONSULT PRN (11:16)
[2024-01-08] MEDS: NALOXONE HCL 0.4 MG/1 ML VIAL/CARP ONE (11:27)
[2024-01-08 11:35] LABS: Partial Thromboplastin Ratio 1.2; Partial Thromboplastin Time 32 Seconds (21-31); Prothrombin Time 10.8 Seconds (9.0-12.0)
--- NOTE | 2024-01-08 11:44 | Hospitalist Progress Note ---
Date of Service January 08, 2024 Assessment & Plan (1) Severe sepsis with acute organ dysfunction: (2) Stroke determined by clinical assessment: Plan: Suspect either hypertensive versus septic emboli (3) Bacteremia due to Staphylococcus: (4) Paroxysmal atrial fibrillation with rapid ventricular response: Plan: Converted to sinus rhythm (5) Uncontrolled hypertension: (6) Spinal stenosis excluding cervical region: (7) Demand ischemia of myocardium: (8) Acute back pain: (9) Diabetes mellitus, type 2: (10) Morbid obesity: (11) Chronic kidney disease: Plan Patient with acute stroke by clinical exam suspect either hypertensive versus septic emboli. Stroke alert called Labetalol given for immediate blood pressure control IV heparin held Telestroke consultation obtained, at bedside communicating with Dr. Mcdonald, [facility] telestroke neurologist through the entire consultation. Stat head CT and CTA of the head and neck negative for acute findings Personally reviewed CT head no evidence of acute bleed Narcan 0.4 mg IV given due to more sedation. Patient responded positively to this more awake, more interactive unfortunately her pain started to flare more significantly. Proceed with neurochecks and stroke scale MRI of the brain Continue IV antibiotics Hold full anticoagulation while endocarditis being ruled out, continue antiplatelet with aspirin as recommended by neurology, VTE prophylaxis with heparin Neurology consultation Updated blood culture does show MRSA Communication with cardiology, if MRI shows fairly large stroke would hold on DUANE and empirically treat for endocarditis, if MRI does not show evidence of stroke would hopefully proceed with DUANE tomorrow Continue Norvasc, give additional 5 mg for blood pressure control, as needed IV labetalol to maintain systolic blood pressure less than 180 as recommended by telestroke Attempt to use alternate forms of pain control minimize use of narcotics due to the fact that patient had significant sedation. Attempted to update and daughter via phone. Voicemail left on son's 's phone, no identifier at daughter's phone. Admission and Anticipated Discharge Date Admission Date: January 06, 2024 Subjective Called urgently to bedside. Cardiology was evaluating the patient noted more pronounced left-sided weakness. Code stroke called. Further history obtained from nursing staff question whether they started to notice some symptoms developing overnight with left-sided weakness. Difficult to assess in the setting of her ongoing pain complaints of her neck and back. Given pain medications. Weakness seem to have progressed through the morning and become more profound. Physical Exam Physical Exam: Constitutional: Drowsy and less interactive than she was earlier. HEENT: Mucous membranes moist. Lungs: Clear to auscultation, decreased, no wheezes rales or rhonchi CV: S1-S2, regular Abdomen: Soft, nontender, nondistended Extremities: No significant edema Neuro: Minimal movement against gravity in both upper and lower extremities on the left. Seems to be favoring right side. Does follow commands Psych: Drowsy, falls asleep between commands Results & Data Results & Data Vital Signs (Past 12 Hours) Vital Signs Temp Pulse Pulse Resp BP BP BP 01/08/24 11:31 79 197/79 H 01/08/24 10:45 83 168/73 H 01/08/24 07:14 36.8 C 83 19 213/85 H 01/08/24 03:00 36.6 C 68 12 187/71 H Pulse Ox O2 Del Method O2 Flow Rate 01/08/24 11:31 01/08/24 10:45 01/08/24 07:14 96 Nasal Cannula 4 01/08/24 03:00 96 Nasal Cannula 4 Diagnostic Findings Reviewed imaging, laboratory and diagnostic studies. Pertinent findings as below. CTA head and neck, no large vessel occlusion Personally reviewed EKG, sinus rhythm with first-degree AV block Critical Care Time 105 minutes of critical care, stroke alert
--- NOTE | 2024-01-08 11:55 | Neurology Consultation ---
Date of Consultation January 08, 2024 Assessment & Plan (1) Acute left-sided weakness: acute left sided weakness in a 78F with a pMH of HTN, HLD, DM and afib on anticoagulation who is currently admitted for sepsis. CT and CTA were unremarkable. She is also complaining of neck/back pain and so that could be c ontributing to her weakness. Plan -- recommend MRI brain without contrast -- hold heparin until MRI is complete -- no indication for ASA inaddition to anticoagulation -- echo was already completed -- PT/OT/PULP AND PAPER TESTER Telehealth Consultation Telehealth Information Telehealth Information: I performed this visit using a real-time telehealth connection between my location and the patients location ([facility]). After connecting through interactive tele-video, patient was identified by name and date of and/or wristband check.Patient (or authorized healthcare circulation sales representative) was informed that this was a telemedicine visit and it was being conducted confidentially over secure lines. My office door was closed and no one else was present in the room with me.Patient (or authorized healthcare circulation sales representative) provided consent to proceed with the visit, expressed an understanding of privacy and security of the telemedicine visit, and gave permission to have a hospital circulation sales representative in the room in order to assist with the visit and to conduct portions of the visit, as needed. I informed the patient (or authorized healthcare circulation sales representative) that I reviewed their record and presented the opportunity for them to ask any questions regarding the visit today. The patient agreed to participate. History of Present Illness Reason for Consultation: stroke like symptoms Attending Physician: Satya Dennis, History of Present Illness Makenna Escobar is a 78F with a PMH of afib, DM, HLD, HTN, who is currently admitted for sepsis. She was normal yesterday but when being evaluated by cardiology today she wasn't moving the left side well and her responses were more slowed. A stroke alert was initiated and she was evaluated by [facility]. She can't provide a review of systems Allergies Allergy/AdvReac Type Severity Reaction Status Date / Time allopurinol Allergy Mild RASH Verified 10/01/19 09:44 Penicillins Allergy Mild HIVES Verified 10/01/19 09:44 Bactrim Allergy Unknown ANXIETY Verified 09/26/17 08:37 AND HALLUCINATION sulfamethoxazole AdvReac Intermediate ANXIETY Verified 03/23/21 20:14 AND HALLUCINATION trimethoprim AdvReac Intermediate ANXIETY Verified 03/23/21 20:14 AND HALLUCINATION Home Medications Medication Instructions Recorded Confirmed Type amlodipine 5 mg tablet 5 mg PO DAILY 01/06/24 01/06/24 History aspirin 81 mg tablet,delayed 81 mg PO DAILY 01/06/24 01/06/24 History release atorvastatin 20 mg tablet 20 mg PO DAILY 01/06/24 01/06/24 History calcitriol 0.25 mcg capsule 0.25 mcg PO UD 01/06/24 01/06/24 History colchicine 0.6 mg tablet 0.6 mg PO DAILY PRN gout attack 01/06/24 01/06/24 History fluticasone propionate 50 1 spray intranasal DAILY 01/06/24 01/06/24 History mcg/actuation nasal spray,suspension gabapentin 400 mg capsule 400 mg PO UD 01/06/24 01/06/24 History lorazepam 0.5 mg tablet 0.5 mg PO TID PRN Anxiety 01/06/24 01/06/24 History meloxicam 15 mg tablet 15 mg PO DAILY PRN Pain 01/06/24 01/06/24 History metoprolol succinate 25 mg 25 mg PO UD 01/06/24 01/06/24 History tablet,extended release 24 hr semaglutide 1 mg/dose (4 mg/3 mL) 1 mg subcut WK 01/06/24 01/06/24 History subcutaneous pen injector (Ozempic) tramadol 50 mg tablet 50 mg PO Q6H PRN Severe Pain 01/06/24 01/06/24 History (Scale Score 7-10) aspirin 81 mg tablet,delayed 81 mg PO DAILY 01/07/24 01/07/24 History release furosemide 20 mg tablet 60 mg PO DAILY 01/07/24 01/07/24 History losartan 100 mg tablet 100 mg PO DAILY 01/07/24 01/07/24 History omeprazole 20 mg capsule,delayed 20 mg PO DAILY 01/07/24 01/07/24 History release Patient History Medical History (Updated 01/08/24 @ 11:59 by Federico Scott MD) Demand ischemia of myocardium Paroxysmal atrial fibrillation with rapid ventricular response Intraductal papilloma of breast left Morbid obesity Renal artery stenosis status post bilateral renal artery stenting Cancer uterine s/p hysterectomy (no chemo/XRT) Chronic back pain Gout Chronic kidney disease stage III (follows with Dr. Okeefe) GERD (gastroesophageal reflux disease) controlled Diabetes mellitus, type 2 Hypertension Hyperlipidemia Surgical History History of renal stent RIGHT/LEFT History of cataract surgery R/L History of hysterectomy TOTAL History of bilateral tubal ligation History of dilatation and curettage X 2 History of hand surgery RIGHT CYST History of cholecystectomy Fusion of spine LUMBAR Family History Brother Family history of diabetes mellitus Mother Family hx of colon cancer Social History Smoking Status: Never smoker Second Hand Exposure: Yes (SPOUSE SMOKES); Do You Dip or Chew Tobacco: No; Hx Alcohol Use: No Hx Substance Use: No Preferred Language: Belarusian Communication Ability: Effective Lithograph Printer Required: No Beliefs That Will Affect Care: None Current Living Situation: Spouse Feels Safe at Home: Yes Safety Concerns: Feels Safe At This Time Assistive Devices: Cane and Walker Physical Exam NEUROLOGIC EXAMINATION: Mental Status:alert, oriented to time, place, person, normal recent memory, normal remote memory, normal attention span, normal concentration, normal language, and normal fund of knowledge Cranial Nerves: CN 2 - no visual defect on confrontation and pupils round, equal, reactive to light CN 3, 4, 6 - extra-ocular movements intact and no nystagmus CN 5 - facial sensation intact CN 7 - left facial droop CN 8 - intact hearing CN 9, 10 - palate symmetric, normal gag CN 11 - good shoulder shrug CN 12 - tongue midline MOTOR:some movement in the left arm and left but can't hold it against gravity, right side is normal SENSATION: intact and symmetric to light touch, some neglect GAIT: deferred COORDINATION: no ataxia with finger to nose testing and heel to carlos testing REFLEXES: cannot assess over telemedicine Results & Data Vital Signs (Past 12 Hours) Vital Signs Temp Pulse Pulse Resp BP BP BP 01/08/24 11:31 79 197/79 H 01/08/24 10:45 83 168/73 H 01/08/24 07:14 36.8 C 83 19 213/85 H 01/08/24 03:00 36.6 C 68 12 187/71 H Pulse Ox O2 Del Method O2 Flow Rate 01/08/24 11:31 01/08/24 10:45 01/08/24 07:14 96 Nasal Cannula 4 01/08/24 03:00 96 Nasal Cannula 4 Laboratory Results Abnormal Lab Results 01/06/24 01/07/24 01/07/24 19:39 15:42 20:02 WBC RBC Hgb Hct MCV MCH MCHC RDW Std Deviation RDW Coeff of Monse Plt Count MPV PT INR APTT PTT Ratio Heparin Anti-Xa, Unfract Sodium Potassium Chloride Carbon Dioxide Anion Gap BUN Creatinine Est Cr Clr Drug Dosing Est GFR ( Amer) Est GFR (Non-Af Amer) BUN/Creatinine Ratio Glucose POC Glucose 140 H 158 H Calcium Magnesium Random Vancomycin A.calcoaceticus-baumannii cmplx PCR Cancelled Bacteroides fragilis Cancelled Paulina albicans (PCR) Cancelled Paulina auris (PCR) Cancelled C. glabrata (PCR) Cancelled C. krusei (PCR) Cancelled C. parapsilosis (PCR) Cancelled C. tropicalis (PCR) Cancelled C. neoform/gattii (PCR) Cancelled Enterobacterales (PCR) Cancelled E. cloacae complex PCR Cancelled Enterococc faecalis PCR Cancelled Enterococc faecium PCR Cancelled E. coli (PCR) Cancelled H. influenzae (PCR) Cancelled Klebsiella aerogenes (PCR) Cancelled Klebsiella oxytoca PCR Cancelled K. pneumoniae group (PCR) Cancelled List. monocytogenes PCR Cancelled N. meningitidis (PCR) Cancelled Proteus species (PCR) Cancelled Salmonella spp. (PCR) Cancelled Serratia marcescens PCR Cancelled Staphylococcus sp PCR Cancelled Staph aureus (PCR) Cancelled mecA/C & MREJ Resist Gene Cancelled mecA/C-Methicil Resis Gene Cancelled mcr-1 Colistin Res Gene PCR Cancelled Staph epidermidis (PCR) Cancelled Staph lugdunensis PCR Cancelled S. maltophilia (PCR) Cancelled Streptococcus sp PCR Cancelled Strep agalactiae (PCR) Cancelled Strep pneumoniae (PCR) Cancelled S. pyogenes (PCR) Cancelled P. aeruginosa (PCR) Cancelled Tamie/B-Vanco Res Genes Cancelled blaIMP Car res Gene PCR Cancelled KPC-Carbap Res Gene PCR Cancelled blaNDM Car Res Gene PCR Cancelled OXA-48 Carbapenem Resis Gene (PCR) Cancelled blaVIM Car Res Gene PCR Cancelled CTX-M Gene Resistance (PCR) Cancelled Bld Cult ID Panel PCR Cancelled Bld Cult ID PCR Com Cancelled 01/08/24 01/08/24 01/08/24 05:25 05:31 07:12 WBC 18.40 H RBC 3.66 L Hgb 11.5 L Hct 34.2 L MCV 93.4 MCH 31.4 MCHC 33.6 RDW Std Deviation 47.5 H RDW Coeff of Monse 13.8 Plt Count 256 MPV 10.0 PT INR APTT PTT Ratio Heparin Anti-Xa, Unfract 0.35 Sodium 134 L Potassium 3.9 Chloride 104 Carbon Dioxide 22 Anion Gap 8 BUN 29 H Creatinine 1.15 Est Cr Clr Drug Dosing 53.2 Est GFR ( Amer) 52.8 Est GFR (Non-Af Amer) 45.5 BUN/Creatinine Ratio 25.2 H Glucose 147 H POC Glucose 159 H Calcium 8.9 Magnesium 1.9 Random Vancomycin A.calcoaceticus-baumannii cmplx PCR Bacteroides fragilis Paulina albicans (PCR) Paulina auris (PCR) C. glabrata (PCR) C. krusei (PCR) C. parapsilosis (PCR) C. tropicalis (PCR) C. neoform/gattii (PCR) Enterobacterales (PCR) E. cloacae complex PCR Enterococc faecalis PCR Enterococc faecium PCR E. coli (PCR) H. influenzae (PCR) Klebsiella aerogenes (PCR) Klebsiella oxytoca PCR K. pneumoniae group (PCR) List. monocytogenes PCR N. meningitidis (PCR) Proteus species (PCR) Salmonella spp. (PCR) Serratia marcescens PCR Staphylococcus sp PCR Staph aureus (PCR) mecA/C & MREJ Resist Gene mecA/C-Methicil Resis Gene mcr-1 Colistin Res Gene PCR Staph epidermidis (PCR) Staph lugdunensis PCR S. maltophilia (PCR) Streptococcus sp PCR Strep agalactiae (PCR) Strep pneumoniae (PCR) S. pyogenes (PCR) P. aeruginosa (PCR) Tamie/B-Vanco Res Genes blaIMP Car res Gene PCR KPC-Carbap Res Gene PCR blaNDM Car Res Gene PCR OXA-48 Carbapenem Resis Gene (PCR) blaVIM Car Res Gene PCR CTX-M Gene Resistance (PCR) Bld Cult ID Panel PCR Bld Cult ID PCR Com 01/08/24 01/08/24 10:42 10:47 WBC RBC Hgb Hct MCV MCH MCHC RDW Std Deviation RDW Coeff of Monse Plt Count MPV PT 10.8 INR 1.0 APTT 32 H PTT Ratio 1.2 Heparin Anti-Xa, Unfract Sodium Potassium Chloride Carbon Dioxide Anion Gap BUN Creatinine Est Cr Clr Drug Dosing Est GFR ( Amer) Est GFR (Non-Af Amer) BUN/Creatinine Ratio Glucose POC Glucose 226 H Calcium Magnesium Random Vancomycin 12.1 A.calcoaceticus-baumannii cmplx PCR Bacteroides fragilis Paulina albicans (PCR) Paulina auris (PCR) C. glabrata (PCR) C. krusei (PCR) C. parapsilosis (PCR) C. tropicalis (PCR) C. neoform/gattii (PCR) Enterobacterales (PCR) E. cloacae complex PCR Enterococc faecalis PCR Enterococc faecium PCR E. coli (PCR) H. influenzae (PCR) Klebsiella aerogenes (PCR) Klebsiella oxytoca PCR K. pneumoniae group (PCR) List. monocytogenes PCR N. meningitidis (PCR) Proteus species (PCR) Salmonella spp. (PCR) Serratia marcescens PCR Staphylococcus sp PCR Staph aureus (PCR) mecA/C & MREJ Resist Gene mecA/C-Methicil Resis Gene mcr-1 Colistin Res Gene PCR Staph epidermidis (PCR) Staph lugdunensis PCR S. maltophilia (PCR) Streptococcus sp PCR Strep agalactiae (PCR) Strep pneumoniae (PCR) S. pyogenes (PCR) P. aeruginosa (PCR) Tamie/B-Vanco Res Genes blaIMP Car res Gene PCR KPC-Carbap Res Gene PCR blaNDM Car Res Gene PCR OXA-48 Carbapenem Resis Gene (PCR) blaVIM Car Res Gene PCR CTX-M Gene Resistance (PCR) Bld Cult ID Panel PCR Bld Cult ID PCR Com Diagnostic Findings Chest X-Ray 01/07/24 10:47 XR chest 1V portable HISTORY: sepsis/pneumonia COMPARISON: Chest 01/06/2024. FINDINGS: No pneumothorax. Low lung volumes. The heart remains mildly enlarged. There is mild central pulmonary vascular congestion without overt edema. Left basilar linear densities persist. IMPRESSION: 1. Cardiomegaly with mild central pulmonary vascular congestion. 2. Left lower lobe linear densities persist. This may represent subsegmental atelectasis. A left lower lobe pneumonitis also remains in the differential diagnosis. ACT 112: Negative or not required by law. Electronically signed by: Parviz Javier M.D. 01/07/2024 4:[address] 01/08/24 10:18 CT OF THE HEAD WITHOUT CONTRAST CLINICAL HISTORY: Left-sided weakness. COMPARISON STUDY: MRI of the brain March 23, 2021. Head CT January 06, 2024. CT DOSE: 625.8 mGy.cm TECHNIQUE: Helical axial images of the head were obtained without IV contrast. Automated exposure control was utilized for the study. A dose lowering technique was utilized adhering to the principles of ALARA. FINDINGS: No acute intracranial hemorrhage, midline shift or mass effect is present. White matter hypodensities are unchanged since prior exam and favor small vessel disease. The ventricular system is unremarkable. The basal cisterns are patent. No extra-axial collections are present. There are no findings to suggest acute dural sinus thrombosis or acute territorial infarct. There are no calvarial fractures. There is mild sinus mucosal thickening. Left mastoid air cells are partially opacified. A calcified extra-axial lesion overlying the left sphenoid wing favors a meningioma. IMPRESSION: No acute intracranial findings. ACT 112: Negative or not required by law. Electronically signed by: Misha Wilkinson M.D. 01/08/2024 10:43 AM Head CTA 01/08/24 10:26 CT angio head w con, CT angio neck with con CLINICAL HISTORY: 78 years-old Female with stroke protocol. Acute strokelike symptoms COMPARISON STUDY: Head CT of same day, head CT 01/06/2024 brain MRI 03/23/2021 TECHNIQUE: Following the IV administration of 119 cc of Optiray, CT angiogram of the brain head and neck was performed. Images are reviewed in the axial, sagittal, and coronal planes. 3-D MIPS images are created and assessed. IV contrast was administered without complication. All measurements were obtained according to NASCET criteria. A dose lowering technique was utilized adhering to the principles of ALARA. CT DOSE: 464.34 mGy.cm FINDINGS: 1.2 cm calcified meningioma adjacent to the left frontal lobe redemonstrated. Prior bilateral lens repair. Involutional changes with chronic microvascular ischemic disease. Mild mucosal thickening of the paranasal sinuses. H eterogeneous thyroid. Lung apices are clear without pneumothorax. No acute fracture identified. CT ANGIOGRAM OF THE HEAD AND NECK: Atherosclerosis of the aorta. Patency of the common and internal carotid arteries. There is moderate atherosclerosis of the right carotid bulb and proximal right ICA resulting in less than 50% stenosis. The bilateral anterior and middle cerebral arteries are also patent. The vertebrobasilar system and posterior cerebral arteries are widely patent. There is no aneurysm, high-grade stenosis, or proximal branch occlusion identified. Dural sinuses appear patent. IMPRESSION: Unremarkable CTA of the head and neck without aneurysm, dissection, high-grade stenosis or arterial occlusion. ACT 112: Negative or not required by law. The above report was generated using voice recognition software. It may contain grammatical, syntax or spelling errors. Electronically signed by: Gustavo Charles M.D. 01/08/2024 10:50 AM Neck CTA 01/08/24 10:26 CT angio head w con, CT angio neck with con CLINICAL HISTORY: 78 years-old Female with stroke protocol. Acute strokelike symptoms COMPARISON STUDY: Head CT of same day, head CT 01/06/2024 brain MRI 03/23/2021 TECHNIQUE: Following the IV administration of 119 cc of Optiray, CT angiogram of the brain head and neck was performed. Images are reviewed in the axial, sag ittal, and coronal planes. 3-D MIPS images are created and assessed. IV contrast was administered without complication. All measurements were obtained according to NASCET criteria. A dose lowering technique was utilized adhering to the principles of ALARA. CT DOSE: 464.34 mGy.cm FINDINGS: 1.2 cm calcified meningioma adjacent to the left frontal lobe redemonstrated. Prior bilateral lens repair. Involutional changes with chronic microvascular ischemic disease. Mild mucosal thickening of the paranasal sinuses. Heterogeneous thyroid. Lung apices are clear without pneumothorax. No acute fracture identified. CT ANGIOGRAM OF THE HEAD AND NECK: Atherosclerosis of the aorta. Patency of the common and internal carotid arteries. There is moderate atherosclerosis of the right carotid bulb and proximal right ICA resulting in less than 50% stenosis. The bilateral anterior and middle cerebral arteries are also patent. The vertebrobasilar system and posterior cerebral arteries are widely patent. There is no aneurysm, high-grade stenosis, or proximal branch occlusion identified. Dural sinuses appear patent.
[2024-01-08] MEDS: amLODIPine BESYLATE 5 MG TAB PO ONE (12:41)
--- NOTE | 2024-01-08 13:01 | Pharmacy Report ---
Pharmacy PK ABX Note - Date of Service January 08, 2024 - Assessment and Plan Assessment * 78 year old F receiving VANCOMYCIN for treatment of CAP (without clear risk factors for resistant organism) and possible tickborne illness. * Pertinent microbiologic data includes: Positive MRSA Nasal Swab, MRSA growing in BLCX from 01/05, negative resp BioFire, negative smear for Babesia/Anaplasma (serologies are send outs), negative Lyme screen, initial procal 2.66 * Of note, stroke alert called this am due to acute L sided weakness. Cardiology consulted, echo pending. * Day # 3 abx therapy * Renal fxn stable Plan Vancomycin * Random vancomycin level drawn this AM = 12.1mcg/mL * Current maintenance dose of 1250 mg IV every 24 hours will be changed to 1500mg IV Q 24 hrs with next dose due at 1300 today (to more quickly achieve therapeutic targets) * Regimen is predicted to achieve target AUC/RENAN of 400-600 mg/L.hr * Will repeat drug level with AM labs tomorrow to confirm therapeutic targets met Pharmacy will continue to follow and will adjust dose/frequency as necessary. Thank you. Pharmacy has transitioned to AUC monitoring for vancomycin. AUC/RENAN is the preferred PK/PD target and is associated with decreased risk of nephrotoxicity compared to traditional trough targets.
[2024-01-08] MEDS: GADOBUTROL 65ML VIAL IV ONE (14:18)
--- NOTE | 2024-01-08 14:37 | Magnetic Resonance Report ---
MRI OF THE BRAIN WITHOUT AND WITH IV CONTRAST CLINICAL HISTORY: Acute stroke-like symptoms. COMPARISON STUDY: Head CT and CTA of the head performed earlier today. MRI of the brain March 23, 2021. TECHNIQUE: Utilizing a 1.5 Bita magnet and dedicated coil, multiplanar, multiecho imaging of the br ain was performed pre and postcontrast administration. IV administration of 11 mL of [address]ist contra st was uneventful. Thin cut T1 post contrast imaging was performed. FINDINGS: There are no foci of restricted diffusion to suggest acute infarct. No acute intracranial h emorrhage, midline shift or mass effect is present. Brain volume is normal. Ventricular system is nor mal. Basal cisterns are patent. Flow-voids for the major intracranial vessels are present. An 8 mm T2 hypointense mildly enhancing extra-axial lesion overlying the anterior inferior left frontal lobe is unchanged since MRI March 23, 2021 and favors a heavily calcified meningioma. No additional intrac ranial masses are present. Scattered white matter T2 hyperintense foci are similar to prior exam and favor mild small vessel disease. There has been no significant change in appearance of the brain. Dim inished T1 marrow signal remains unchanged since MRI of March 23, 2021. This is likely physiologic. There is a small amount of fluid within the bilateral mastoid air cells, left greater than right. Th ere is moderate ethmoid sinus mucosal thickening. IMPRESSION: 1. No acute intracranial findings. 2. No change in appearance of the brain since MRI of March 23, 2021. 3. No change in a calcified meningioma overlying the anterior inferior left frontal lobe. ACT 112: Negative or not required by law. Electronically signed by: Misha Wilkinson M.D. 01/08/2024 2:35 PM
[2024-01-08] MEDS: VANCOMYCIN HCL 1,500 MG in SODIUM CHLORIDE 0.9% 500 ML IV SCH (15:45)
[2024-01-08] MEDS: HEPARIN SOD 5,000 UNIT/0.5 ML VIAL SQ SCH (15:45)
--- NOTE | 2024-01-08 16:33 | Communication Note ---
Date of Service: January 08, 2024 Able to contact patient's daughter Clari (contact information in [employer] is correct, name is incorrect) updated her on her mother's condition and events throughout the day. Answered her questions, aware of the patient has a severe blood infection. Aware that patient will need rehab and prolonged IV antibiotics. Clari states that she will update her dad since we have been unable to get in contact with him throughout the day today.
--- NOTE | 2024-01-08 17:41 | Communication Note ---
Date of Service: January 08, 2024 Met with patient, spouse, and two daughters in the room and provided updates. Questions answered to there satisfaction. Informed consent for DUANE obtained and placed on the chart. Due to patient's mental status and difficulty writing , her also signed. NPO after MN.
[2024-01-08] MEDS: LABETALOL HCL IV 5 MG/ML 20ML IV PRN (22:59)
[2024-01-09] MEDS: ENALAPRILAT 1.25 MG in DEXTROSE 5% 25 ML IV ONE (00:05)
[2024-01-09] MEDS: OLANZapine 10 MG/2.1 ML SDV IM STA (00:46)
[2024-01-09] MEDS: LABETALOL HCL IV 5 MG/ML 20ML IV STA ×2 (02:55→09:26)
[2024-01-09] MEDS: NITROGLYCERIN 2% OINTMENT 30GM TUBE EXT SCH (03:17)
[2024-01-09] MEDS: KETOROLAC TROMETHAMINE 15 MG/ML VIAL IV PRN (03:55)
[2024-01-09] MEDS: cloNIDine HCL 0.1 MG TAB PO STA (04:10)
[2024-01-09 05:53] LABS: Babesia microti DNA Not Detected (Not Detected)
[2024-01-09 06:04] LABS: Basophils # (auto) 0.07 K/uL (0.00-0.20); Basophils % (auto) 0.4 %; Eosinophils # (auto) 0.06 K/uL (0.00-0.50); Eosinophils % (auto) 0.3 %; Hematocrit (blood only) 33.2 % (37.0-47.0); Hemoglobin 11.4 g/dl (12.0-16.0); Immature Granulocytes # (auto) 0.19 K/uL (0.01-0.20); Immature Granulocytes % (auto) 1.1 %; Lymphocytes # (auto) 0.76 K/uL (1.20-3.40); Lymphocytes % (auto) 4.4 %; Mean Corpuscular Hemoglobin 31.5 pg (25.0-34.0); Mean Corpuscular Hgb Conc 34.3 g/dL (32.0-36.0); Mean Corpuscular Volume 91.7 fL (80.0-100.0); Mean Platelet Volume 9.7 fL (9.4-12.4); Monocytes % (auto) 6.9 %; Neutrophils # (auto) 15.08 K/uL (1.40-6.50); Neutrophils % (auto) 86.9 %; Platelet Count 272 K/uL (130-400); RDW Coefficient of Variation 13.4 % (11.5-14.5); RDW Standard Deviation 45.7 fL (36.4-46.3); Red Blood Count 3.62 M/uL (4.20-5.40); White Blood Count 17.36 K/ul (4.8-10.8)
--- NOTE | 2024-01-09 06:15 | Electrocardiogram Report ---
Test Reason : Blood Pressure : */* mmHG Vent. Rate : 76 BPM Atrial Rate : 76 BPM P-R Int : 248 ms QRS Dur : 110 ms QT Int : 358 ms P-R-T Axes : 38 -19 24 degrees QTcB Int : 402 ms Sinus rhythm with 1st degree A-V block Possible Anteroseptal infarct (cited on or before 06-Jan-2024) Abnormal ECG When compared with ECG of 07-Jan-2024 07:36, No significant change Confirmed by Aron Estrella ([id number]) on 01/09/2024 6:15:22 AM Referred By: REFERRED SELF Confirmed By: Aron Estrella
[2024-01-09 06:20] LABS: BUN Creatinine Ratio 28.9 (10-20); Calcium 8.9 mg/dl (8.6-10.3); Chol HDL Ratio 3.3 (0-5); Creatinine Clr Calc Pharmacy 75.8 ml/min; Est GFR (African American) 78.3 ml/min; Est GFR (Non-African American) 67.5 ml/min; Magnesium 1.9 mg/dl (1.7-2.4); Potassium 3.4 mmol/L (3.5-5.1)
[2024-01-09 06:26] LABS: ANTI-Xa, UFH(UnfractionatedHep < 0.10 IU/ml (0.3-0.7)
[2024-01-09 07:22] LABS: Estimated Average Glucose 126 mg/dl
--- NOTE | 2024-01-09 07:32 | History & Physical Bridge Note ---
Date of Service January 09, 2024 History & Physical Bridge Note I have examined the patient, reviewed the History & Physical and in the interval since the performance of the History & Physical I have noted the following changes of clinical significance: no changes noted. Patient with ongoing hypertension overnight and received a dose of IV labetalol and topical nitroglycerin paste. BP still elevated on arrival to heart center. Patient lethargic, but arousable, similar to yesterday. Family accompanies her. Case discussed with anesthesia. DUANE is felt to be of high priority in terms of management of patient. Will plan on another dose of IV labetalol 10 mg x 1 now and proceed with DUANE.
[2024-01-09] MEDS ORDERED: LIDOCAINE 2% 2 ML VIAL/AMP(20MG/ML) INFIL ONE (08:18)
[2024-01-09] MEDS ORDERED: PROPOFOL IV EMULSION 10 MG/ML 20 ML VIAL IV ONE (08:18)
--- NOTE | 2024-01-09 08:32 | Post Operative Brief Note ---
Cardiology Brief Post Op Date of Surgery January 09, 2024 Pre & Post Diagnosis Operation Date: 01/09/24 07:45 Procedure Preprocedure diagnosis: MRSA bacteremia, rule out endocarditis Post procedure diagnosis: No evidence of valvular vegetation, incidental small PFO with mild right to left interatrial shunt Transesophageal echocardiogram procedure: After informed consent was obtained a timeout was performed the patient was sedated with the assistance of the anesthesia service. She received a total of 20 mg of IV lidocaine, 5 mg of IV labetalol, 120 milligrams of IV propofol. The valvular structures were well-visualized with no evidence of valvular vegetation. Incidental finding was noted of a small PFO with mild [id number] shunt as demonstrated the administration of agitated saline contrast. Recommendations: Return to PCU. Titration of antihypertensive medications. Ongoing antibiotics as per infectious disease recommendations. Helicopter Mechanic Aren Quintana DO Lens Edger Josie Callaway RDCS Estimated Blood Loss 0 Findings Consistent with Post-Op Diagnosis none Anesthesia Type MAC Complications none
[2024-01-09] MEDS: LABETALOL HCL IV 5 MG/ML 20ML (CATH LAB USE ONLY) IV ONE (09:09)
--- NOTE | 2024-01-09 09:09 | Cardiology Progress Note ---
Date of Service January 09, 2024 Assessment & Plan (1) Sepsis: (2) Bacteremia due to Staphylococcus: Plan: * DUANE negative for vegetation * No definite source obvious as of yet * Continue vancomycin * ID is on the case * 2 cultures positive thus far, await results of 3rd culture (3) Atrial fibrillation with rapid ventricular response: Plan: * Converted to SR on hospital day one. * Newly diagnosed AF. * Holding anticoagulation for now given somnolence. CT , CTA head / neck, MRI without acute abnormality * Continue ASA, DVT prophylaxis dose of heparin for now * Will reassess candidacy for anticoagulation on a daily basis * Change metoprolol to Coreg for better BP effect (4) Hypertension: Plan: * Creatinine stable. 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 May need to reassess patency of renal arteries after sepsis resolved. (5) Altered mental status: Plan: * as noted CT , MRI brain without acute findings * Improved mildly after narcan administration on 01/08/24. Admission and Anticipated Discharge Date Admission Date: January 06, 2024 Subjective Patient seen in cardiology follow up. Pt seen prior to , during , and after DUANE. Hypertensive overnight. Still somewhat somnolent and not moving left arm and left leg appropriately. Afebrile. Review of Systems Review of Systems: All systems reviewed & are unremarkable except as noted in HPI & below Physical Exam Constitutional: + ill appearing, + obese and + lethargic Neck: trachea midline, no thyromegaly Respiratory: no labored breathing Auscultation: + diminished lung sounds and + rhonchi; no crackles Cardiovascular: Rate/Rhythm: regular rate and regular rhythm Heart Sounds: no murmur Vessels: no JVD Extremities: + edema (1+ pedal and pretibial) Gastrointestinal (Abdomen): normal bowel sounds, soft, nontender, no hepatosplenomegaly Neurologic: PERRL, EOMI, accommodation nl, no face palsy, no dysarthria + confused; + does not move all extremities (left sided weakness of upper and lower extrmity) Psychiatric: A+Ox3, euthymic affect Results & Data Vital Signs (Past 12 Hours) Vital Signs Temp Pulse Pulse Resp BP BP BP 01/09/24 08:45 76 20 199/71 H 01/09/24 08:41 77 20 212/84 H 01/09/24 08:28 73 20 213/76 H 01/09/24 08:17 73 19 193/74 H 01/09/24 07:29 77 17 212/84 H 01/09/24 03:10 199/109 H 01/09/24 02:55 84 220/79 H 01/09/24 02:37 37.0 C 85 20 221/79 H 01/08/24 23:39 193/98 H 01/08/24 23:14 69 01/08/24 22:59 70 207/80 H 01/08/24 22:58 36.7 C 71 20 207/80 H 01/08/24 21:18 Pulse Ox O2 Del Method O2 Flow Rate FiO2 01/09/24 08:45 94 Oxymask 6 01/09/24 08:41 94 Oxymask 6 01/09/24 08:28 94 Oxymask 6 01/09/24 08:17 96 Oxymask 6 01/09/24 07:29 96 Oxymask 4 32 01/09/24 03:10 01/09/24 02:55 01/09/24 02:37 94 Oxymask 01/08/24 23:39 01/08/24 23:14 01/08/24 22:59 01/08/24 22:58 92 Oxymask 4 01/08/24 21:18 Oxymask 4 Laboratory Results Coagulation 01/08/24 Range/Units 10:47 PT 10.8 (9.0-12.0) Seconds APTT 32 H (21-31) Seconds Lipids 01/09/24 Range/Units 05:41 Triglycerides 99 (0-150) mg/dl Cholesterol 91 (0-200) mg/dl HDL Cholesterol 28 mg/dl Cholesterol/HDL Ratio 3.3 (0-5) CBC 01/09/24 Range/Units 05:41 WBC 17.36 H (4.8-10.8) K/ul RBC 3.62 L (4.20-5.40) M/uL Hgb 11.4 L (12.0-16.0) g/dl Hct 33.2 L (37.0-47.0) % Plt Count 272 (130-400) K/uL Neut # (Auto) 15.08 H (1.40-6.50) K/uL Lymph # (Auto) 0.76 L (1.20-3.40) K/uL [place] # (Auto) 1.20 H (0.11-0.59) K/uL Eos # (Auto) 0.06 (0.00-0.50) K/uL Baso # (Auto) 0.07 (0.00-0.20) K/uL Comprehensive Metabolic Panel 01/09/24 Range/Units 05:41 Sodium 135 L (136-145) mmol/L Potassium 3.4 L (3.5-5.1) mmol/L Chloride 105 (98-107) mmol/L Carbon Dioxide 22 (21-32) mmol/L BUN 24 H (6-23) mg/dl Creatinine 0.83 D (0.6-1.2) mg/dl Glucose 166 H (70-99(Fasting)) mg/dl Calcium 8.9 (8.6-10.3) mg/dl Intake and Output 01/08/24 01/09/24 01/09/24 22:59 06:59 14:59 Intake Total 630 / 1668.933 26 / 1668.933 Output Total 1949 Balance 80 / -281.067 -624 / -281.067 Intake: IV 530 / 1568.933 26 / 1568.933 Enalaprilat 1.25 mg In Dextrose 26 / 26 5% 25 ml @ 100 mls/hr IV NOW ONE Rx#:[id number] Heparin Sodium/Dextrose 25,000 0 / 129.6 units In 500 ml @ 0 UNITS/HR IV .Q0M [facility] Rx#:[id number] Sodium Chloride 0.9% 1,000 ml @ 0 / 883.333 125 mls/hr IV .Q8H [facility] Rx#: [id number] Vancomycin HCl 1,500 mg In 530 / 530 Sodium Chloride 0.9% 500 ml @ 200 mls/hr IV Q24H [facility] Rx#: [id number] Oral 100 / 100 Output: Urine Amount (Catheter) 1949 Bob/Indwelling 1949 Other: Other Intake Source NPO Weight 122.5 kg 122.5 kg Weight Measurement Method Built in [facility] Patient Weight 01/10/24 06:59 Weight 122.5 kg (1) Sepsis Sepsis acute organ dysfunction status: without acute organ dysfunction Sepsis type: sepsis due to unspecified organism Qualified Code(s): A41.9 - Sepsis, unspecified organism (4) Hypertension Hypertension type: renovascular hypertension Qualified Code(s): I15.0 - Renovascular hypertension
[2024-01-09] MEDS: BENZOCAINE/TETRACAIN/BUTAM 50 APPLN/5 GM CAN EXT ONE (09:26)
[2024-01-09] MEDS: VANCOMYCIN HCL 1,500 MG in SODIUM CHLORIDE 0.9% 500 ML IV SCH (09:27)
[2024-01-09] MEDS: LOSARTAN POTASSIUM 50 MG TAB PO SCH (09:32)
[2024-01-09] MEDS: amLODIPine BESYLATE 5 MG TAB PO SCH (09:32)
--- NOTE | 2024-01-09 10:49 | Anesthesiology Progress Note ---
Date of Service January 09, 2024 Anesthesia Post Procedure Vital Signs Vital Signs: Temp Pulse Pulse Resp BP BP BP 01/09/24 10:03 72 19 188/63 H 01/09/24 09:59 76 186/70 H 01/09/24 09:26 76 172/70 H 01/09/24 09:15 73 172/70 H 01/09/24 08:45 76 20 199/71 H 01/09/24 08:41 77 20 212/84 H 01/09/24 08:28 73 20 213/76 H 01/09/24 08:17 73 19 193/74 H 01/09/24 07:29 77 17 212/84 H 01/09/24 03:10 199/109 H 01/09/24 02:55 84 220/79 H 01/09/24 02:37 37.0 C 85 20 221/79 H 01/08/24 23:39 193/98 H 01/08/24 23:14 69 01/08/24 22:59 70 207/80 H 01/08/24 22:58 36.7 C 71 20 207/80 H 01/08/24 21:18 01/08/24 19:59 36.7 C 77 20 177/85 H 01/08/24 18:43 01/08/24 16:09 68 166/67 H 01/08/24 14:40 36.8 C 72 17 171/70 H 01/08/24 11:59 36.8 C 01/08/24 11:31 79 197/79 H Pulse Ox O2 Del Method O2 Flow Rate FiO2 01/09/24 10:03 91 Nasal Cannula 4 01/09/24 09:59 01/09/24 09:26 01/09/24 09:15 90 Oxymask 4 01/09/24 08:45 94 Oxymask 6 01/09/24 08:41 94 Oxymask 6 01/09/24 08:28 94 Oxymask 6 01/09/24 08:17 96 Oxymask 6 01/09/24 07:29 96 Oxymask 4 32 01/09/24 03:10 01/09/24 02:55 01/09/24 02:37 94 Oxymask 01/08/24 23:39 01/08/24 23:14 01/08/24 22:59 01/08/24 22:58 92 Oxymask 4 01/08/24 21:18 Oxymask 4 01/08/24 19:59 90 Nasal Cannula 01/08/24 18:43 Nasal Cannula 4 01/08/24 16:09 01/08/24 14:40 92 Room Air 01/08/24 11:59 01/08/24 11:31 Pain Intensity Back: Pain Intensity: 8 Transfer of Care Handoff Completed per policy Notes Mental Status: alert / awake / arousable and participated in evaluation Patient Amnestic to Procedure: Yes Nausea / Vomiting: adequately controlled Pain: adequately controlled Airway Patency, RR, SpO2: stable & adequate BP & HR: stable & adequate Hydration State: stable & adequate Anesthetic Complications: no major complications apparent
--- NOTE | 2024-01-09 11:31 | Hospitalist Progress Note ---
Date of Service January 09, 2024 Assessment & Plan (1) Severe sepsis with acute organ dysfunction: (2) Stroke determined by clinical assessment: Plan: Suspect either hypertensive versus septic emboli (3) Bacteremia due to Staphylococcus: (4) Uncontrolled hypertension: (5) Acute metabolic encephalopathy: (6) Delirium due to another medical condition: (7) Paroxysmal atrial fibrillation with rapid ventricular response: Plan: Converted to sinus rhythm (8) Spinal stenosis excluding cervical region: (9) Demand ischemia of myocardium: (10) Acute back pain: (11) Diabetes mellitus, type 2: (12) Morbid obesity: (13) Chronic kidney disease: Plan Patient remains critically ill. Uncontrolled hypertension, encephalopathy, hemiplegia and ongoing bacteremia with unclear source. Communication with cardiology, DUANE negative for endocarditis, transitioning to Coreg for better blood pressure control Communication with neurology, recommending lumbar puncture and EEG for encephalopathy Continue vancomycin for MRSA bacteremia will need 4 to 6 weeks. PICC line if surveillance blood culture remain sterile tomorrow Replace potassium Follow laboratory studies Therapies as tolerated and daughter Jaqueline at bedside and updated Admission and Anticipated Discharge Date Admission Date: January 06, 2024 Subjective Patient remains critically ill. Seems to be more confused today. Intermittently answers appropriately. Family at bedside. Physical Exam Physical Exam: Constitutional: Alert, but somewhat confused HEENT: Mucous membranes slightly dry Lungs: Clear to auscultation, decreased, no wheezes rales or rhonchi CV: S1-S2, regular Abdomen: Soft, nontender, nondistended Extremities: No significant edema Neuro: Left hemiplegia, confusion Psych: Intermittently pulling at medical devices Results & Data Results & Data Vital Signs (Past 12 Hours) Vital Signs Temp Pulse Pulse Resp BP BP BP 01/09/24 10:03 72 19 188/63 H 01/09/24 09:59 76 186/70 H 01/09/24 09:26 76 172/70 H 01/09/24 09:15 73 172/70 H 01/09/24 08:45 76 20 199/71 H 01/09/24 08:41 77 20 212/84 H 01/09/24 08:28 73 20 213/76 H 01/09/24 08:17 73 19 193/74 H 01/09/24 07:29 77 17 212/84 H 01/09/24 03:10 199/109 H 01/09/24 02:55 84 220/79 H 01/09/24 02:37 37.0 C 85 20 221/79 H 01/08/24 23:39 193/98 H Pulse Ox O2 Del Method O2 Flow Rate FiO2 01/09/24 10:03 91 Nasal Cannula 4 01/09/24 09:59 01/09/24 09:26 01/09/24 09:15 90 Oxymask 4 01/09/24 08:45 94 Oxymask 6 01/09/24 08:41 94 Oxymask 6 01/09/24 08:28 94 Oxymask 6 01/09/24 08:17 96 Oxymask 6 01/09/24 07:29 96 Oxymask 4 32 01/09/24 03:10 01/09/24 02:55 01/09/24 02:37 94 Oxymask 01/08/24 23:39 Diagnostic Findings Reviewed imaging, laboratory and diagnostic studies. Pertinent findings as below. DUANE negative for endocarditis Potassium 3.4 WBC 17.3 improved brain MRI negative for acute infarct Blood culture from 01/08/2024 no growth to date
[2024-01-09] MEDS: POTASSIUM CHLORIDE CRTAB 20 MEQ TABCR PO SCH (11:43)
--- NOTE | 2024-01-09 13:35 | Pharmacy Report ---
Pharmacy PK ABX Note - Date of Service January 09, 2024 - Assessment and Plan Assessment * 78 year old F receiving VANCOMYCIN for treatment of CAP, MRSA bacteremia. * Pertinent microbiologic data includes: Positive MRSA Nasal Swab, MRSA growing in 2/2 BLCX from 01/05, repeat BLCX 01/07 no growth to date, negative resp BioFire, negative smear/serologies for Babesia/Anaplasma, negative Lyme screen * DUANE negative, IR consulted for LP * Day # 4 abx therapy; planned duration 4-6wks from 1st negative BLCX * Renal fxn stable/improved Plan Vancomycin * Random vancomycin level drawn this AM = 14.4mcg/mL * Current maintenance dose of 1500 mg IV every 24 hours will be changed to 1500mg IV Q 18 hrs with next dose due at 0800 today (to more quickly achieve therapeutic targets) * Regimen is predicted to achieve target AUC/RENAN of 400-600 mg/L.hr * Will repeat drug level with tomorrow to confirm therapeutic targets met Pharmacy will continue to follow and will adjust dose/frequency as necessary. Thank you. Pharmacy has transitioned to AUC monitoring for vancomycin. AUC/RENAN is the preferred PK/PD target and is associated with decreased risk of nephrotoxicity compared to traditional trough targets.
[2024-01-09 14:12] LABS: Appearance CSF Cloudy; CSF Count Tube # 1; CSF Xanthrochromic No xanthochromia; Color CSF Orange; Mononuclear WBC CSF Auto 24.3 %; Polynuclear WBC CSF Auto 75.7 %; Red Blood Cell CSF Auto 9000 /uL (0-); White Blood Cell CSF Auto 1246 /uL (0-5)
--- NOTE | 2024-01-09 14:29 | Fluoroscopy Report ---
Lumbar puncture under fluoroscopy INDICATION: Sepsis PROCEDURE: Procedure and risks were explained. Informed consent was obtained. A final timeout was com pleted. The patient was placed prone on the fluoroscopic exam table. The lower lumbar region was prep ped and draped in sterile fashion. 1% lidocaine was utilized for skin anesthesia. Utilizing fluoroscopic guidance, a 20-gauge spinal needle was advanced into the intrathecal space at the L3-4 level. Spot image was obtained. Approximately 3 mL of cloudy yellow/blood tinged fluid was r emoved and sent to the lab for analysis. The patient cannot tolerate any additional fluid removal and therefore the needle was removed and Band-Aid applied. The patient tolerated the procedure well. Vit al signs will be monitored postprocedure. Total fluoroscopy time 22 seconds. Study dose 65.40 mGy. IMPRESSION: Lumbar puncture as above. Performed, dictated, and signed by Wellington Bray PA-C; to be co-signed by Dr. Gustavo Charles. Electronically signed by: Gustavo Charles M.D. 01/09/2024 2:40 PM
[2024-01-09 14:51] LABS: Total Protein CSF 849.9 mg/dl (15-45)
[2024-01-09 15:46] LABS: Cryptococcus neoformans/ga PCR Not Detected (NotDetected); Cytomegalovirus PCR Not Detected (NotDetected); Enterovirus PCR Not Detected (NotDetected); Escherichia coli K1 PCR Not Detected (NotDetected); Haemophilius influenzae PCR Not Detected (NotDetected); Herpes Simplex Virus 1 PCR Not Detected (NotDetected); Herpes Simplex Virus 2 PCR Not Detected (NotDetected); Human Herpes Virus 6 PCR Not Detected (NotDetected); Human Parechovirus PCR Not Detected (NotDetected); Listeria monocytogenes PCR Not Detected (NotDetected); Neisseria meningitidis PCR Not Detected (NotDetected); Streptococcus agalactiae PCR Not Detected (NotDetected); Streptococcus pneumoniae PCR Not Detected (NotDetected); Varicella Zoster Virus PCR Not Detected (NotDetected)
[2024-01-09] MEDS: carvediloL 25 MG TAB PO SCH (16:56)
--- NOTE | 2024-01-09 16:59 | Hospitalist Progress Note ---
Date of Service January 09, 2024 Assessment & Plan (1) Severe sepsis with acute organ dysfunction: (2) Bacterial meningitis: (3) Bacteremia due to Staphylococcus: (4) Stroke determined by clinical assessment: Plan: Suspect either hypertensive versus septic emboli (5) Uncontrolled hypertension: (6) Acute metabolic encephalopathy: (7) Delirium due to another medical condition: (8) Paroxysmal atrial fibrillation with rapid ventricular response: Plan: Converted to sinus rhythm (9) Spinal stenosis excluding cervical region: (10) Demand ischemia of myocardium: (11) Acute back pain: (12) Diabetes mellitus, type 2: (13) Morbid obesity: (14) Chronic kidney disease: Plan Patient remains critically ill with no evidence of possible bacterial meningitis. Blood pressures have failed to respond to alterations of oral medications addition of topical nitrate and boluses of IV labetalol. Lumbar puncture performed earlier in the day, cell counts consistent with bacterial meningitis. Minimal amount of CSF was able to be obtained. Communication with lab to determine most valuable testing. Transfer to the ICU Start IV nicardipine drip titrate to keep SBP less than 180 Communication with cardiology, agrees with above plan Consult product design specialist, notified Communication with infectious disease, Dr. Porras, reviewed cell counts. Rec ommends continuing vancomycin. Source of meningitis still remains unclear. Await CSF culture Family at bedside. Additional history obtained that she had iovera cryotherapy treatments to both knees on November 27, 2023. This is a procedure where needles are injected into the skin to perform cryotherapy on the nerves surrounding a arthritic joint. Family updated on the plan is to transfer to ICU for IV drip to control blood pressure Admission and Anticipated Discharge Date Admission Date: January 06, 2024 Subjective Patient reevaluated in the afternoon, remains altered mentally. Family at bedside. She is bit more calm and comfortable after some tramadol. Physical Exam Physical Exam: Constitutional: Drowsy but does awaken and attempt answer questions HEENT: Mucous membranes moist. Lungs: Clear to auscultation, decreased, no wheezes rales or rhonchi CV: S1-S2, regular Abdomen: Soft, nontender, nondistended Extremities: Bilateral knees are arthritic, no redness, no warmth, no tenderness, no effusion Neuro: Left hemiplegia Psych: Drowsy Results & Data Results & Data Vital Signs (Past 12 Hours) Vital Signs Temp Pulse Pulse Resp BP BP BP 01/09/24 16:17 71 195/75 H 01/09/24 15:57 36.9 C 70 21 194/71 H 01/09/24 15:50 01/09/24 15:44 74 194/76 H 01/09/24 15:30 73 194/76 H 01/09/24 10:03 72 19 188/63 H 01/09/24 09:59 76 186/70 H 01/09/24 09:26 76 172/70 H 01/09/24 09:15 73 172/70 H 01/09/24 08:45 76 20 199/71 H 01/09/24 08:41 77 20 212/84 H 01/09/24 08:28 73 20 213/76 H 01/09/24 08:17 73 19 193/74 H 01/09/24 07:29 77 17 212/84 H Pulse Ox O2 Del Method O2 Flow Rate FiO2 01/09/24 16:17 01/09/24 15:57 91 Nasal Cannula 4 01/09/24 15:50 Nasal Cannula 4 01/09/24 15:44 01/09/24 15:30 91 Nasal Cannula 4 01/09/24 10:03 91 Nasal Cannula 4 01/09/24 09:59 01/09/24 09:26 01/09/24 09:15 90 Oxymask 4 01/09/24 08:45 94 Oxymask 6 01/09/24 08:41 94 Oxymask 6 01/09/24 08:28 94 Oxymask 6 01/09/24 08:17 96 Oxymask 6 01/09/24 07:29 96 Oxymask 4 32 Diagnostic Findings Lumbar puncture performed earlier CSF concerning for bacterial meningitis: WBCs 1000 246, glucose 39, total protein 849 Critical Care Time 45
[2024-01-09] MEDS ORDERED: STAT IV Infusion **Titration per Protocol STA (19:27)
[2024-01-09] MEDS: niCARdipine 25 MG in SODIUM CHLORIDE 0.9% 240 ML IV SCH (20:19)
--- NOTE | 2024-01-09 20:43 | Critical Care Consultation ---
Date of Consultation January 09, 2024 Assessment & Plan (1) Hypertensive urgency: Impression: 78-year-old female with PMH HTN, DM type II, HLD, GERD, initially presented with strokelike symptoms with confusion and left hemiparesis, and found to have MRSA bacteremia with CSF studies suggestive of bacterial meningitis. Now transferred to ICU for development of hypertensive urgency requiring Nicardipine drip. Neuro - Acute encephalopathy/Left hemiparesis Symptoms likely secondary to MRSA sepsis with bacterial meningitis. She has undergone stroke workup which is thus far unremarkable. -See treatment meningitis below - No acute intracranial findings on MRI - CTA head and neck without evidence of occlusion - Neurology following appreciate recommendations Cardiac - Hypertensive urgency Currently requiring nicardipine drip. Prior to this patient had IV labetalol and hydralazine. Will wean drip as tolerated - 0.1 mg Catapres administered - Continue amlodipine, Coreg, Cozaar - Appreciate cardiology recommendations - Will attempt to treat with labetalol and hydralazine PRNs as needed Respiratory - Hypoxiacurrently maintaining oxygen saturation on 4 L nasal cannula. No previous history of pulmonary disease - Chest x-ray 01/06 with mild cardiopulmonary congestion and left lower lobe opacity suggestive of atelectasis versus pneumonitis - Follow-up repeat chest x-ray this a.m. - Patient is 6 L positive according to I's and O's. Consider diuresis - Wean oxygen as tolerated -Continuous monitoring pulse ox GI - Carb consistent low-sodium diet RENAL/LYTES - Creatinine within normal limits. Monitor routine BMPs and replete electrolytes as indicated - Foleystrict I's and O's ENDO - DM type II Currently euglycemic. Continue with sliding scale. ICU hyperglycemic protocol HEME - H&H stable, monitor routine CBC ID - MRSA bacteremia/bacterial meningitisblood cultures x 2 positive for MRSA, and patient recently underwent LP suggestive of bacterial meningitis. CSF cultures currently pending. CSF bio fire unremarkable thus far - ID following appreciate recommendations. Will continue with vancomycin for now, Will need 4 to 6 weeks. Plan to undergo PICC line following next sterile blood cultures LINES/IV ACCESS - Peripheral IVs DVT PROPHYLAXIS - SCDs, Subcu heparin Thank you for allowing us to participate in the care of this patient. Please refer to my attending physician's documentation for any further recommendations. (2) Acute metabolic encephalopathy: (3) Bacterial meningitis: (4) Acute left-sided weakness: (5) Atrial fibrillation with rapid ventricular response: (6) Sepsis: (7) GERD (gastroesophageal reflux disease): (8) Diabetes: (9) MRSA infection: Supervising Physician Co-Signing Physician Notes Patient seen and examined. EMR reviewed. Discussed with critical care SHAVONNE and agree with assessment plan as noted. Please refer to progress note from 01/10/2024 for additional details History of Present Illness Attending Physician: Satya Dennis DO History of Present Illness Patient is a 78-year-old female With past medical history significant for paroxysmal A-fib, DM type II, obesity, CKD, HTN who was admitted on 01/05 and has been undergoing treatment for bacterial meningitis with acute metabolic encephalopathy and uncontrolled hypertension. During her hospitalization she has become progressively confused with left hemiplegia. Blood cultures were positive for MRSA and she is being followed with ID and currently on vancomycin. She did undergo DUANE which was negative for vegetation although did show coincidental finding of PFO. She underwent LP which suggested bacterial meningitis, and CSF cultures are currently pending although BioFire has been negative thus far. This afternoon, patient had worsening hypertension uncontrolled with PRNs and she was started on nicardipine drip for which she is now transferred to the ICU for management. On arrival to ICU the patient is calm but confused. She is able to answer simple questions and she currently reports headache. She denies dizziness or changes in vision. She does report weakness in the left upper and lower extremity, but denies loss of sensation. She denies cough or congestion, sore throat, shortness of breath, chest pain or palpitations, back pain, abdominal pain, nausea or vomiting, diarrhea, burning with urination, swelling in hands or feet, rashes or wounds. Allergies Allergy/AdvReac Type Severity Reaction Status Date / Time allopurinol Allergy Mild RASH Verified 10/01/19 09:44 Penicillins Allergy Mild HIVES Verified 10/01/19 09:44 Bactrim Allergy Unknown ANXIETY Verified 09/26/17 08:37 AND HALLUCINATION sulfamethoxazole AdvReac Intermediate ANXIETY Verified 03/23/21 20:14 AND HALLUCINATION trimethoprim AdvReac Intermediate ANXIETY Verified 03/23/21 20:14 AND HALLUCINATION Home Medications Medication Instructions Recorded Confirmed Type amlodipine 5 mg tablet 5 mg PO DAILY 01/06/24 01/06/24 History aspirin 81 mg tablet,delayed 81 mg PO DAILY 01/06/24 01/06/24 History release atorvastatin 20 mg tablet 20 mg PO DAILY 01/06/24 01/06/24 History calcitriol 0.25 mcg capsule 0.25 mcg PO UD 01/06/24 01/06/24 History colchicine 0.6 mg tablet 0.6 mg PO DAILY PRN gout attack 01/06/24 01/06/24 History fluticasone propionate 50 1 spray intranasal DAILY 01/06/24 01/06/24 History mcg/actuation nasal spray,suspension gabapentin 400 mg capsule 400 mg PO UD 01/06/24 01/06/24 History lorazepam 0.5 mg tablet 0.5 mg PO TID PRN Anxiety 01/06/24 01/06/24 History meloxicam 15 mg tablet 15 mg PO DAILY PRN Pain 01/06/24 01/06/24 History metoprolol succinate 25 mg 25 mg PO UD 01/06/24 01/06/24 History tablet,extended release 24 hr semaglutide 1 mg/dose (4 mg/3 mL) 1 mg subcut WK 01/06/24 01/06/24 History subcutaneous pen injector (Ozempic) tramadol 50 mg tablet 50 mg PO Q6H PRN Severe Pain 01/06/24 01/06/24 History (Scale Score 7-10) aspirin 81 mg tablet,delayed 81 mg PO DAILY 01/07/24 01/07/24 History release furosemide 20 mg tablet 60 mg PO DAILY 01/07/24 01/07/24 History losartan 100 mg tablet 100 mg PO DAILY 01/07/24 01/07/24 History omeprazole 20 mg capsule,delayed 20 mg PO DAILY 01/07/24 01/07/24 History release Patient History Medical History (Updated 01/10/24 @ 03:46 by SHAI Brown) Demand ischemia of myocardium Paroxysmal atrial fibrillation with rapid ventricular response Intraductal papilloma of breast left Morbid obesity Renal artery stenosis status post bilateral renal artery stenting Cancer uterine s/p hysterectomy (no chemo/XRT) Chronic back pain Gout Chronic kidney disease stage III (follows with Dr. Okeefe) GERD (gastroesophageal reflux disease) controlled Diabetes mellitus, type 2 Hypertension Hyperlipidemia Surgical History History of renal stent RIGHT/LEFT History of cataract surgery R/L History of hysterectomy TOTAL History of bilateral tubal ligation History of dilatation and curettage X 2 History of hand surgery RIGHT CYST History of cholecystectomy Fusion of spine LUMBAR Family History Brother Family history of diabetes mellitus Mother Family hx of colon cancer Social History Smoking Status: Never smoker Second Hand Exposure: Yes (SPOUSE SMOKES); Do You Dip or Chew Tobacco: No; Hx Alcohol Use: No Hx Substance Use: No Preferred Language: Honduran Communication Ability: Effective Lining Stamper Required: No Beliefs That Will Affect Care: None Current Living Situation: Spouse Feels Safe at Home: Yes Safety Concerns: Feels Safe At This Time Assistive Devices: Cane and Walker Review of Systems Review of Systems: All systems reviewed & are unremarkable except as noted in HPI & below Physical Exam Constitutional: + morbidly obese; no acute distress Eyes: PERRL, conjunctivae normal, anicteric sclerae ENMT: external ear and nose normal, oropharynx normal Neck: trachea midline, no thyromegaly Respiratory: normal respiratory effort, lungs clear to auscultation Cardiovascular: RRR, no murmur, no edema Heart Sounds: normal S1 and normal S2; no murmur Extremities: no edema Gastrointestinal (Abdomen): normal bowel sounds, soft, nontender, no hepatosplenomegaly Musculoskeletal: Left upper and lower extremity with significant weakness Skin: no rashes, warm and dry Neurologic: Confused, left upper and lower extremity weakness with trace movements with no apparent loss of sensation. Left facial droop. PERRLA Psychiatric: Orientation: oriented to person; + not oriented to place and + not oriented to time Results & Data Results & Data Vital Signs (Past 12 Hours) Vital Signs Temp Pulse Pulse Resp BP BP BP 01/09/24 16:17 71 195/75 H 01/09/24 15:57 36.9 C 70 21 194/71 H 01/09/24 15:50 01/09/24 15:44 74 194/76 H 01/09/24 15:30 73 194/76 H 01/09/24 10:03 72 19 188/63 H 01/09/24 09:59 76 186/70 H 01/09/24 09:26 76 172/70 H 01/09/24 09:15 73 172/70 H 01/09/24 08:45 76 20 199/71 H Pulse Ox O2 Del Method O2 Flow Rate 01/09/24 16:17 01/09/24 15:57 91 Nasal Cannula 4 01/09/24 15:50 Nasal Cannula 4 01/09/24 15:44 01/09/24 15:30 91 Nasal Cannula 4 01/09/24 10:03 91 Nasal Cannula 4 01/09/24 09:59 01/09/24 09:26 01/09/24 09:15 90 Oxymask 4 01/09/24 08:45 94 Oxymask 6 Coding Level of Care Code 12139 IN/OBS CONSULT LVL 3,45M Diagnoses Hypertensive urgency I16.0 Acute metabolic encephalopathy G93.41 Bacterial meningitis G00.9 Acute left-sided weakness R53.1 Atrial fibrillation with rapid ventricular response I48.91 Sepsis A41.9 Sepsis acute organ dysfunction status: without acute organ dysfunction Sepsis type: sepsis due to unspecified organism GERD (gastroesophageal reflux disease) K21.9 Diabetes E11.9 MRSA infection A49.02 Time Spent (min) 53 (6) Sepsis Sepsis acute organ dysfunction status: without acute organ dysfunction Sepsis type: sepsis due to unspecified organism Qualified Code(s): A41.9 - Sepsis, unspecified organism
[2024-01-09] MEDS: hydrALAZINE HCL 20 MG/ML VIAL IV STA (21:21)
[2024-01-09] MEDS: cloNIDine HCL 0.1 MG TAB PO ONE (21:21)
[2024-01-10] MEDS: LABETALOL HCL IV 5 MG/ML 20ML IV PRN (02:24)
[2024-01-10 04:57] LABS: Basophils # (auto) 0.09 K/uL (0.00-0.20); Basophils % (auto) 0.6 %; Eosinophils # (auto) 0.19 K/uL (0.00-0.50); Eosinophils % (auto) 1.2 %; Hematocrit (blood only) 32.4 % (37.0-47.0); Hemoglobin 11.1 g/dl (12.0-16.0); Immature Granulocytes % (auto) 1.9 %; Lymphocytes # (auto) 1.26 K/uL (1.20-3.40); Lymphocytes % (auto) 8.2 %; Mean Corpuscular Hemoglobin 31.5 pg (25.0-34.0); Mean Corpuscular Hgb Conc 34.3 g/dL (32.0-36.0); Mean Platelet Volume 9.3 fL (9.4-12.4); Monocytes # (auto) 1.45 K/uL (0.11-0.59); Monocytes % (auto) 9.4 %; Neutrophils # (auto) 12.17 K/uL (1.40-6.50); Neutrophils % (auto) 78.7 %; Platelet Count 290 K/uL (130-400); RDW Coefficient of Variation 13.7 % (11.5-14.5); RDW Standard Deviation 46.5 fL (36.4-46.3); Red Blood Count 3.52 M/uL (4.20-5.40); White Blood Count 15.46 K/ul (4.8-10.8)
[2024-01-10] MEDS: hydrALAZINE HCL 20 MG/ML VIAL IV STA (05:09)
[2024-01-10 05:14] LABS: BUN Creatinine Ratio 35.3 (10-20); Calcium 9.1 mg/dl (8.6-10.3); Est GFR (African American) 76.1 ml/min; Est GFR (Non-African American) 65.6 ml/min; Magnesium 2.1 mg/dl (1.7-2.4); Phosphorus 2.6 mg/dl (2.5-4.9); Potassium 3.7 mmol/L (3.5-5.1)
--- NOTE | 2024-01-10 06:59 | XRay Report ---
XR chest 1V portable HISTORY: 78 years-old Female Resp failure acute respiratory failure COMPARISON: 01/07/2024 TECHNIQUE: AP view of the chest FINDINGS: Cardiac silhouette is mildly enlarged. Pulmonary vascular congestion with progressive interstitial co arsening. No pneumothorax or large pleural effusion. The bones appear intact. Mild bibasilar opacitie s, mildly improved on the left and slightly worsened on the right. IMPRESSION: 1. Cardiomegaly with pulmonary vascular congestion and probable mild interstitial pulmonary edema. 2. Mild bibasilar opacities may represent atelectasis versus pneumonitis. ACT 112: Negative or not required by law. The above report was generated using voice recognition software. It may contain grammatical, syntax o r spelling errors. Electronically signed by: Gustavo Charles M.D. 01/10/2024 6:58 AM
--- NOTE | 2024-01-10 07:48 | Critical Care Progress Note ---
Date of Service January 10, 2024 Assessment & Plan (1) Bacterial meningitis: (2) Uncontrolled hypertension: (3) Bacteremia due to Staphylococcus: (4) Spinal stenosis excluding cervical region: (5) Hyperlipidemia: (6) Diabetes: (7) GERD (gastroesophageal reflux disease): (8) Hypertension: Plan (1) Hypertensive urgency: Impression: 78-year-old female with PMH HTN, DM type II, HLD, GERD, initially presented with strokelike symptoms with confusion and left hemiparesis, and found to have MRSA bacteremia with CSF studies suggestive of bacterial meningitis. Now transferred to ICU for development of hypertensive urgency requiring Nicardipine drip. Neuro - Acute encephalopathy/Left hemiparesis Symptoms likely secondary to MRSA sepsis with bacterial meningitis. She has undergone stroke workup which is thus far unremarkable. -See treatment meningitis below - No acute intracranial findings on MRI; CTA head and neck without evidence of occlusion - Neurology following appreciate recommendations - TTE results: Small, incidental PFO, [id number] interatrial shunt noted Cardiac - Hypertensive urgency Currently requiring nicardipine drip. Prior to this patient had IV labetalol and hydralazine. Will wean drip as tolerated - 0.1 mg Catapres (clonidine) administered - Continue amlodipine, Coreg, Cozaar, clonidine - Appreciate cardiology recommendations - Treated with labetalol and hydralazine PRNs previous night Bacteremia - TTE completed - No evidence of a valvular vegetation. Small, incidental PFO, [id number] interatrial shunt noted. Respiratory - Hypoxiacurrently maintaining oxygen saturation on 4 L nasal cannula. No previous history of pulmonary disease - Chest x-ray 01/06 with mild cardiopulmonary congestion and left lower lobe opacity suggestive of atelectasis versus pneumonitis - Follow-up repeat chest x-ray this a.m. - Patient is 6 L positive according to I's and O's. Consider diuresis - Wean oxygen as tolerated -Continuous monitoring pulse ox GI - Carb consistent low-sodium diet RENAL/LYTES - Creatinine within normal limits. Monitor routine BMPs and replete electrolytes as indicated. All electrolytes WNL this AM - Foleystrict I's and O's ENDO - DM type II Currently euglycemic. Continue with sliding scale. ICU hyperglycemic protocol HEME - H&H stable, monitor routine CBC ID - MRSA bacteremia/bacterial meningitisblood cultures x 2 positive for MRSA, and patient recently underwent LP suggestive of bacterial meningitis (WBC, 1246, pleocytosis; TProt, 850; Glu, 39 --> suggestive of bacterial meningitis) CSF cultures currently pending. CSF bio fire unremarkable thus far - ID following appreciate recommendations. Will continue with vancomycin for now, Will need 4 to 6 weeks. Plan to undergo PICC line following next sterile blood cultures LINES/IV ACCESS - Peripheral IVs DVT PROPHYLAXIS - SCDs, Subcu heparin Admission and Anticipated Discharge Date Admission Date: January 06, 2024 Supervising Physician Co-Signing Physician Notes Patient seen and examined. EMR reviewed. Discussed with critical care SHAVONNE as well as with family practice resident and on multidisciplinary rounds with bedside critical care nurse. Patient's blood pressure is well-controlled this morning on clonidine. She is off parenteral agents. Discussed with cardiology. With regards to her bacteremia her fever curve remains normal. Her white count is normal. Her surveillance cultures are negative. Would recommend MRI of the cervical spine to exclude epidural abscess or discitis otherwise defer antibiotic choice and duration to infectious disease. The patient's critical care issues appear to have resolved. She can be transferred to the floor. Critical care services will sign off. Feel free to contact us with questions or concerns Subjective Patient is a 78 yo F w/ a PMHx of HTN, HLD, GERD, T2DM, paroxysmal AFib w/ RVR, Type 3 obesity, chronic back pain, gout, CKD-stage 3 who was admitted to [facility], [place] with strokelike symptoms of confusion and left hemiparesis, and found to have MRSA bacteremia with CSF studies suggestive of bacterial meningitis. Now transferred to ICU for development of hypertensive urgency (w/ BP's as high as 210/77) requiring a Nicardipine drip. Patient AAO x 2 (person, place) for me, but irritable, complaining of pain regardless of which supine position she's currently placed--patient with neck pain, back pain, and abdominal pain during palpation. It is unclear to what degree the neck pain is acute, as patient states that she always has neck pain Review of Systems Constitutional: + fever and + chills Eyes: no diplopia, no eye pain and no worsening vision Ear, Nose, Mouth, Throat: + nasal congestion; no nasal discharge, no facial pain and no sore throat Respiratory: + dyspnea; no cough Cardiovascular: no chest pain and no palpitations Gastrointestinal: no nausea, no vomiting, no constipation and no diarrhea/loose stools Neurologic: + dizziness and + headache(s); no tingli ng and no numbness Psychiatric: + irritability Physical Exam Constitutional: WD/WN, vitals as above Eyes: PERRL, conjunctivae normal, anicteric sclerae Neck: normal visual inspection, + neck tender and + nuchal rigidity Respiratory: normal respiratory effort, lungs clear to auscultation Cardiovascular: RRR, no murmur, no edema Gastrointestinal (Abdomen): Inspection/Auscultation: normal bowel sounds Neurologic: CN's II-XI intact bilaterally, moves all extremities and awake Speech / Cognition: normal speech and no anomia Psychiatric: Orientation: alert, oriented to person and oriented to place; + not oriented to time Results & Data Results & Data Vital Signs (Past 12 Hours) Vital Signs Temp Pulse Resp BP Pulse Ox O2 Del Method O2 Flow Rate 01/10/24 05:39 81 22 168/80 H 94 01/10/24 05:09 76 20 176/77 H 94 01/10/24 04:57 78 18 93 01/10/24 04:36 77 25 H 210/77 H 92 01/10/24 04:24 75 19 192/79 H 93 01/10/24 03:54 70 17 178/68 H 94 01/10/24 03:27 68 16 93 01/10/24 03:00 66 17 170/63 H 91 01/10/24 02:39 64 170/63 H 01/10/24 02:30 64 21 90 01/10/24 02:24 67 187/64 H 01/10/24 02:06 69 15 187/64 H 01/10/24 01:48 37.1 C 01/10/24 01:33 65 15 91 01/10/24 01:31 164/58 H 01/10/24 01:24 62 13 91 01/10/24 01:01 159/56 H 01/10/24 01:00 63 13 91 01/10/24 00:31 155/50 H 01/10/24 00:30 62 13 92 01/10/24 00:03 62 13 146/51 H 92 01/09/24 23:43 69 01/09/24 23:42 63 01/09/24 23:39 61 14 91 01/09/24 23:31 148/50 H 09/19/24 23:30 63 13 91 01/09/24 23:09 65 14 91 01/09/24 22:42 65 14 92 01/09/24 22:31 158/57 H 01/09/24 22:27 69 15 90 01/09/24 22:12 73 17 94 01/09/24 22:01 159/76 H 01/09/24 21:51 74 17 92 01/09/24 21:49 Nasal Cannula 4 01/09/24 21:46 162/65 H 01/09/24 21:46 162/65 H 01/09/24 21:46 162/65 H 01/09/24 21:42 73 19 92 01/09/24 21:39 73 19 91 01/09/24 21:29 161/66 H 01/09/24 21:21 72 16 92 01/09/24 21:16 176/63 H 01/09/24 21:03 75 19 90 01/09/24 21:01 169/67 H 01/09/24 20:51 74 20 91 01/09/24 20:46 171/62 H 01/09/24 20:33 72 18 90 01/09/24 20:31 164/63 H 01/09/24 20:31 164/63 H 01/09/24 20:31 164/63 H 01/09/24 20:30 72 18 91 01/09/24 20:24 173/67 H 01/09/24 20:24 173/67 H 01/09/24 20:21 71 21 92 01/09/24 20:16 183/72 H 01/09/24 20:16 183/72 H 01/09/24 20:12 75 22 91 01/09/24 20:09 82 21 92 01/09/24 19:46 157/76 H (8) Hypertension Hypertension type: renovascular hypertension Qualified Code(s): I15.0 - Renovascular hypertension
[2024-01-10] MEDS: cloNIDine HCL 0.1 MG TAB PO SCH ×2 (08:13→21:45)
--- NOTE | 2024-01-10 09:39 | Cardiology Progress Note ---
Date of Service January 10, 2024 Assessment & Plan (1) Sepsis: (2) Bacteremia due to Staphylococcus: Plan: * DUANE negative for vegetation * LP with WBCs in CSF, CSF gram stain was negative, culture pending * Continue vancomycin * ID is on the case * 2 cultures positive thus far, 3rd is negative after 48 hours (3) Bacterial meningitis: Plan: +LP yesterday with bacteria CSF culture is pending (4) Atrial fibrillation with rapid ventricular response: Plan: * Converted to SR on hospital day one. * Newly diagnosed AF. * Holding anticoagulation for now given somnolence. CT , CTA head / neck, MRI without acute abnormality * Continue ASA, DVT prophylaxis dose of heparin for now * Will reassess candidacy for anticoagulation on a daily basis * Change metoprolol to Coreg for better BP effect * Remains in NSR (5) Hypertension: Plan: * Transferred to ICU given hypertensive urgency. * Started on nicardipine gtt. BP improving this morning. 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 * Mental status improving this morning Plan Patient with increased edema of the upper and lower extremities noted. Pulm vascular congestion on chest xray +Fluid balance given necessary IV medications Given one dose IV lasix this morning 40 mg. Potassium being supplemented. Case discussed with Dr. Quintana I spent a total of 40 minutes on the date of service in preparation, delivery, and documentation of the care provided to this patient, excluding any time spent in the performance of separately billed services. Bushra Restrepo PA-C Department of Cardiology, [facility] This chart was completed in part utilizing Speech Voice Recognition Software. Grammatical errors, random word insertions, pronoun errors, and incomplete sentences are an occasional consequence of this system due to software limitations, ambient noise, and hardware issues. Any formal questions or concerns about the content, text, or information contained within the body of this dictation should be directly addressed to the provider for clarification. Admission and Anticipated Discharge Date Admission Date: January 06, 2024 Supervising Physician Co-Signing Physician Notes Attending attestation: Case reviewed with the advanced practitioner. I have personally performed a history and physical examination on the patient. I have reviewed the advanced practitioner's documentation on the date of service referenced in note, and I agree with, and take responsibility for the plan of care. Patient transferred to the first floor ICU the afternoon/evening of 01/09/2024 due to ongoing difficulty with control of hypertension. Patient received a dose of IV labetalol, followed by Toradol, nicardipine infusion was started at 2.5 for 30 minutes, then patient received clonidine and hydralazine, the nicardipine was briefly reinitiated until discontinued a.m. of 01/18/2024 at 9 AM. Blood pressure controlled at present most recent measurement 138/55, much improved compared to previous measurements this admission. Mental status slightly improved but certainly still not normal and she still has left-sided weakness. She has not had any additional atrial fibrillation since hospital day 1 on 01/06/2024. She is off of heparin due to her change in mental status and will continue to hold for now in favor of subcutaneous heparin for DVT prophylaxis instead. Continue vancomycin. I spent a total of 30 minutes coordinating, documenting, and providing care for this patient excluding time spent in the performance of separately billed services or time spent by another provider. Aren Quintana, DO Subjective Patient more awake/alert today. Easily awakens to voice. Answers questions appropriately. Reports her SOB has improved. Chest xray today is consistent with mild pulm vacular congestion. Increased edema noted in the left leg and left upper extremity. Denies chest pain. Still has neck pain and weakness. Left sided weakness continues. BP trending down this morning. Review of Systems Review of Systems: All systems reviewed & are unremarkable except as noted in HPI & below Physical Exam Constitutional: + ill appearing, + obese and + lethargic Neck: trachea midline, no thyromegaly Respiratory: no labored breathing Auscultation: + diminished lung sounds; no crackles, no rales and no rhonchi Cardiovascular: Rate/Rhythm: regular rate and regular rhythm Heart Sounds: no murmur Vessels: no JVD Extremities: + edema (1+ pedal and pretibial L>R; 1+ right upper extremity edema) Gastrointestinal (Abdomen): normal bowel sounds, soft, nontender, no hepatosplenomegaly Neurologic: PERRL, EOMI, accommodation nl, no face palsy, no dysarthria + confused; + does not move all extremities (left sided weakness of upper and lower extrmity) Psychiatric: A+Ox3, euthymic affect Results & Data Vital Signs (Past 12 Hours) Vital Signs Temp Pulse Resp BP Pulse Ox O2 Del Method O2 Flow Rate 01/10/24 09:18 Nasal Cannula 4 01/10/24 09:01 138/55 L 01/10/24 09:00 70 14 95 01/10/24 09:00 36.6 C 01/10/24 08:46 149/57 H 01/10/24 08:42 78 18 95 01/10/24 08:31 177/66 H 01/10/24 08:24 80 16 94 01/10/24 08:16 155/65 H 01/10/24 08:09 79 14 94 01/10/24 08:01 166/80 H 01/10/24 08:00 80 18 94 01/10/24 07:46 169/75 H 01/10/24 07:42 81 19 93 01/10/24 07:31 178/74 H 01/10/24 07:30 80 27 H 93 01/10/24 07:16 179/65 H 01/10/24 07:03 76 17 92 01/10/24 07:01 185/70 H 01/10/24 05:39 81 22 168/80 H 94 01/10/24 05:09 76 20 176/77 H 94 01/10/24 04:57 78 18 93 01/10/24 04:36 77 25 H 210/77 H 92 01/10/24 04:24 75 19 192/79 H 93 01/10/24 03:54 70 17 178/68 H 94 01/10/24 03:27 68 16 93 01/10/24 03:00 66 17 170/63 H 91 01/10/24 02:39 64 170/63 H 01/10/24 02:30 64 21 90 01/10/24 02:24 67 187/64 H 01/10/24 02:06 69 15 187/64 H 01/10/24 01:48 37.1 C 01/10/24 01:33 65 15 91 01/10/24 01:31 164/58 H 01/10/24 01:24 62 13 91 01/10/24 01:01 159/56 H 09/20/24 01:00 63 13 91 01/10/24 00:31 155/50 H 01/10/24 00:30 62 13 92 01/10/24 00:03 62 13 146/51 H 92 01/09/24 23:43 69 01/09/24 23:42 63 01/09/24 23:39 61 14 91 01/09/24 23:31 148/50 H 01/09/24 23:30 63 13 91 01/09/24 23:09 65 14 91 01/09/24 22:42 65 14 92 01/09/24 22:31 158/57 H 01/09/24 22:27 69 15 90 01/09/24 22:12 73 17 94 01/09/24 22:01 159/76 H 01/09/24 21:51 74 17 92 01/09/24 21:49 Nasal Cannula 4 01/09/24 21:46 162/65 H 01/09/24 21:46 162/65 H 01/09/24 21:46 162/65 H 01/09/24 21:42 73 19 92 01/09/24 21:39 73 19 91 Laboratory Results CBC 01/10/24 Range/Units 04:39 WBC 15.46 H (4.8-10.8) K/ul RBC 3.52 L (4.20-5.40) M/uL Hgb 11.1 L (12.0-16.0) g/dl Hct 32.4 L (37.0-47.0) % Plt Count 290 (130-400) K/uL Neut # (Auto) 12.17 H (1.40-6.50) K/uL Lymph # (Auto) 1.26 (1.20-3.40) K/uL [place] # (Auto) 1.45 H (0.11-0.59) K/uL Eos # (Auto) 0.19 (0.00-0.50) K/uL Baso # (Auto) 0.09 (0.00-0.20) K/uL Comprehensive Metabolic Panel 01/10/24 Range/Units 04:39 Sodium 137 (136-145) mmol/L Potassium 3.7 (3.5-5.1) mmol/L Chloride 108 H (98-107) mmol/L Carbon Dioxide 23 (21-32) mmol/L BUN 30 H (6-23) mg/dl Creatinine 0.85 (0.6-1.2) mg/dl Glucose 147 H (70-99(Fasting)) mg/dl Calcium 9.1 (8.6-10.3) mg/dl Intake and Output 01/09/24 01/10/24 01/10/24 22:59 06:59 14:59 Intake Total 22.5 / 1142.5 590 / 1142.5 233.751 / 233.751 Output Total 300 / 1000 400 / 1000 200 / 200 Balance -277.5 / 142.5 190 / 142.5 33.751 / 33.751 Intake: IV 22.5 / 1082.5 530 / 1082.5 83.751 / 83.751 Vancomycin HCl 1,500 mg In 530 / 1060 Sodium Chloride 0.9% 500 ml @ 200 mls/hr IV Q18H VAN Rx#: [id number] niCARdipine 25 mg In Sodium 22.5 / 22.5 83.751 / 83.751 Chloride 0.9% 240 ml @ 2.5 MG/ HR 25 mls/hr IV .Q10H VAN Rx#: [id number] Oral 60 / 60 150 / 150 Output: Urine Amount (Catheter) 300 / 1000 400 / 1000 200 / 200 Bob/Indwelling 300 / 1000 400 / 1000 200 / 200 # Bowel Movements 0 / 0 Other: Weight 122.4 kg Weight Measurement Method Built in [facility] Diagnostic Findings Telemetry reviewed: NSR, no arrhythmias. No recurrent afib Chest xray today: 1. Cardiomegaly with pulmonary vascular congestion and probable mild interstitial pulmonary edema. 2. Mild bibasilar opacities may represent atelectasis versus pneumonitis. (1) Sepsis Sepsis acute organ dysfunction status: without acute organ dysfunction Sepsis type: sepsis due to unspecified organism Qualified Code(s): A41.9 - Sepsis, unspecified organism (5) Hypertension Hypertension type: renovascular hypertension Qualified Code(s): I15.0 - Renovascular hypertension
[2024-01-10] MEDS: FUROSEMIDE 40 MG/4 ML VIAL IV ONE (10:28)
--- NOTE | 2024-01-10 11:27 | Billing Data ---
Date of Service January 10, 2024 Coding Level of Care Code 10750 SUB INP/OBS CARE MIN
--- NOTE | 2024-01-10 12:23 | Hospitalist Progress Note ---
Date of Service January 10, 2024 Assessment & Plan (1) Severe sepsis with acute organ dysfunction: (2) Bacterial meningitis: (3) Bacteremia due to Staphylococcus: (4) Stroke determined by clinical assessment: Plan: Suspect either hypertensive versus septic emboli (5) Uncontrolled hypertension: (6) Acute metabolic encephalopathy: (7) Delirium due to another medical condition: (8) Paroxysmal atrial fibrillation with rapid ventricular response: Plan: Converted to sinus rhythm (9) Spinal stenosis excluding cervical region: (10) Demand ischemia of myocardium: (11) Acute back pain: (12) Diabetes mellitus, type 2: (13) Morbid obesity: (14) Chronic kidney disease: Plan Patient with severe sepsis due to MRSA bacteremia and suspected bacterial meningitis. Severe altered mental status, encephalopathy and left hemiaplasia possibly from septic stroke. Continue IV vancomycin Hypertension has been controlled transitioned off nicardipine drip, transfer back to PCU Therapies Monitor cultures PICC line consultation, surveillance blood culture are sterile at 48 hours, patient will need a minimum of 4 to 6 weeks of IV vancomycin Patient has remained in sinus rhythm since she converted early on in her admission. Patient initially started on heparin IV, currently on VTE prophylaxis heparin. Cardiology assessing her candidacy for chronic anticoagulation daily. Defer starting full anticoagulation to cardiology 54 minutes spent in care at the bedside, coordination of care, review of record Admission and Anticipated Discharge Date Admission Date: January 06, 2024 Subjective No acute issues overnight blood pressure seems to have improved. Titrating off Cardene. Patient a little bit more interactive this morning. Continues with head and neck pain Physical Exam Physical Exam: Constitutional: Alert HEENT: Mucous membranes moist. Lungs: Clear to auscultation, decreased, few crackles at bases CV: S1-S2, regular Abdomen: Soft, nontender, nondistended Extremities: Some edema in extremities Neuro: Left hemiplegia, slightly increased movement and hand. Psych: Cooperative, normal mood Results & Data Results & Data Vital Signs (Past 12 Hours) Vital Signs Temp Pulse Resp BP Pulse Ox O2 Del Method O2 Flow Rate 01/10/24 11:16 128/54 L 01/10/24 11:01 130/49 L 01/10/24 10:54 153/62 H 01/10/24 10:45 148/59 H 01/10/24 10:45 148/59 H 01/10/24 10:42 68 21 93 01/10/24 10:01 129/49 L 01/10/24 10:01 129/49 L 01/10/24 10:00 63 17 95 01/10/24 09:31 130/45 L 01/10/24 09:30 61 22 95 01/10/24 09:18 Nasal Cannula 4 01/10/24 09:16 137/48 L 01/10/24 09:15 66 15 95 01/10/24 09:06 66 17 95 01/10/24 09:01 138/55 L 01/10/24 09:00 70 14 95 01/10/24 09:00 36.6 C 01/10/24 08:46 149/57 H 01/10/24 08:42 78 18 95 01/10/24 08:31 177/66 H 01/10/24 08:24 80 16 94 01/10/24 08:16 155/65 H 01/10/24 08:09 79 14 94 01/10/24 08:01 166/80 H 01/10/24 08:00 80 18 94 01/10/24 07:46 169/75 H 01/10/24 07:42 81 19 93 01/10/24 07:31 178/74 H 01/10/24 07:30 80 27 H 93 01/10/24 07:16 179/65 H 01/10/24 07:03 76 17 92 01/10/24 07:01 185/70 H 01/10/24 05:39 81 22 168/80 H 94 01/10/24 05:09 76 20 176/77 H 94 01/10/24 04:57 78 18 93 01/10/24 04:36 77 25 H 210/77 H 92 01/10/24 04:24 75 19 192/79 H 93 01/10/24 03:54 70 17 178/68 H 94 01/10/24 03:27 68 16 93 01/10/24 03:00 66 17 170/63 H 91 01/10/24 02:39 64 170/63 H 01/10/24 02:30 64 21 90 01/10/24 02:24 67 187/64 H 01/10/24 02:06 69 15 187/64 H 01/10/24 01:48 37.1 C 01/10/24 01:33 65 15 91 01/10/24 01:31 164/58 H 09/20/24 01:24 62 13 91 01/10/24 01:01 159/56 H 01/10/24 01:00 63 13 91 01/10/24 00:31 155/50 H 01/10/24 00:30 62 13 92 Diagnostic Findings Reviewed imaging, laboratory and diagnostic studies. Pertinent findings as below. WBCs 15.4 improving Basic metabolic profile stable CSF culture pending Due to very minimal amount of cerebrospinal fluid minimal testing can be performed. Surveillance blood culture from 01/08/2024 no growth after 48 hours
[2024-01-10] MEDS ORDERED: cloNIDine HCL 0.1 MG TAB PO PRN (13:34)
[2024-01-10] MEDS: ISOSORBIDE MONO EXTENDED REL 30 MG TABCR PO SCH (14:36)
--- NOTE | 2024-01-10 15:04 | Pharmacy Report ---
Pharmacy PK ABX Note - Date of Service January 10, 2024 - Assessment and Plan Assessment * 78 year old F receiving VANCOMYCIN for treatment of CAP, MRSA bacteremia. * Pertinent microbiologic data includes: Positive MRSA Nasal Swab, MRSA growing in 2/2 BLCX from 01/05, repeat BLCX 01/07 no growth to date, negative resp BioFire, negative smear/serologies for Babesia/Anaplasma, negative Lyme screen * DUANE negative * LP performed 01/08 with features consistent w/ bacterial meningitis (WBC 1246, GLU 39, Protein 850), CSF gram stain w/o any organisms observed * CSF BioFire negative for usual pathogens (note, s aureus not included in this panel) * Day # 5 abx therapy; planned duration 4-6wks from 1st negative BLCX * Renal fxn stable Plan Vancomycin * Random vancomycin level drawn this afternoon = 19.8 mcg/mL * Current maintenance dose of 1500 mg IV every 18 hours is predicted to achieve target AUC/REANN of 400-600 mg/L.hr * Will repeat drug level tomorrow to confirm therapeutic targets met given serious nature of infection Pharmacy will continue to follow and will adjust dose/frequency as necessary. Thank you. Pharmacy has transitioned to AUC monitoring for vancomycin. AUC/RENAN is the preferred PK/PD target and is associated with decreased risk of nephrotoxicity compared to traditional trough targets.
--- NOTE | 2024-01-10 16:51 | XRay Report ---
XR chest 1V portable HISTORY: PICC placement right side COMPARISON: Chest 01/10/2024. FINDINGS: The right PICC terminates in the superior cavoatrial junction/distal SVC. No pneumothorax. The heart remains mildly enlarged. Mild interstitial pulmonary edema and a trace right pleural effusi on have slightly progressed. No acute fractures. Left basilar linear densities remain unchanged.. IMPRESSION: 1. Right PICC terminates at the superior cavoatrial junction/distal SVC. 2. No pneumothorax. 2. Cardiomegaly and mild interstitial pulmonary edema have slightly progressed. ACT 112: Negative or not required by law. Electronically signed by: Parviz Javier M.D. 01/10/2024 4:49 PM
--- NOTE | 2024-01-11 08:03 | Hospitalist Progress Note ---
Date of Service January 11, 2024 Assessment & Plan (1) Severe sepsis with acute organ dysfunction: (2) Bacterial meningitis: (3) Bacteremia due to Staphylococcus: (4) Stroke determined by clinical assessment: Plan: Suspect either hypertensive versus septic emboli (5) Uncontrolled hypertension: (6) Acute metabolic encephalopathy: (7) Delirium due to another medical condition: (8) Paroxysmal atrial fibrillation with rapid ventricular response: Plan: Converted to sinus rhythm (9) Spinal stenosis excluding cervical region: (10) Demand ischemia of myocardium: (11) Acute back pain: (12) Diabetes mellitus, type 2: (13) Morbid obesity: (14) Chronic kidney disease: Plan Ms. 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 #Severe Sepsis, multifactorial #Bacteremia due to Staphylococcus #Bacterial Meningitis 01/08 DUANE: No evidence of a valvular vegetation. Small, incidental PFO BCX +MRSA LP suggestive of bacterial meningitis (WBC, 1246, pleocytosis; TProt, 850; Glu, 39) Remains on IV Vancomycin Infectious Disease consulted PICC line consultation, surveillance blood culture are sterile at 48 hours, patient will need a minimum of 4 to 6 weeks of IV vancomycin Plan for final recommendations contingent on MRI #Volume overload s/p IV lasix Repeat BMP this afternoon, replace K #Acute neck pain #Acute left weakness Stroke work up Negative Neurology followed ? if pain contributing to symptoms Thoracic, lumbar spine MRI negative C-Spine MRI not obtained, will order to exclude epidural abscess or discitis -Awaiting final read #Atrial fibrillation with rapid ventricular response, converted NSR -No prior history of AF. CT , CTA head / neck, MRI without acute abnormality -Continue ASA, DVT prophylaxis dose of heparin for now -Metoprolol transitioned to Coreg, currently 25mg BID #Hypertensive Urgency Initially transferred to ICU on 01/08 for BP up to 220s Briefly on nicardipine gtt. Resolved with initiation of clonidine Now PCU Continue losartan 100mg dialy Continue increased amlodipine 10mg daily Continue Clonidine at 0.1 mg BID #Acute encephalopathy , likely multifactorial iso sepsis/critical illness reportedly improving Avoid benzos Delirium precautions Reduce Gabapentin to 400 BID Reduce frequency of tramadol DVT heparin DISPO contingent on MRI c-spine and final recs for IV abx Admission and Anticipated Discharge Date Admission Date: January 06, 2024 Subjective Severe neck pain reported, denies any other concerns Reports pain in neck has remained consistent, Daughter at bedside who reports mentation has been better over last 24 hours, but fluctuates Physical Exam Constitutional: initially in pain, but soon asleep s/p pain medication, opens eyes to verbal stimuli Respiratory: normal respiratory effort, lungs clear to auscultation Cardiovascular: edema in BUE/BLE, RRR Gastrointestinal (Abdomen): normal bowel sounds, soft, nontender, no hepatosp lenomegaly Results & Data Results & Data Vital Signs (Past 12 Hours) Vital Signs Temp Pulse Pulse Resp BP Pulse Ox O2 Del Method 01/11/24 07:50 36.6 C 76 16 207/78 H 95 Nasal Cannula 01/11/24 05:24 59 L 01/11/24 03:08 36.9 C 64 18 170/80 H 95 Nasal Cannula 01/10/24 22:57 36.4 C L 64 18 122/64 92 Nasal Cannula 01/10/24 22:00 Nasal Cannula 01/10/24 20:24 36.5 C 59 L 18 161/65 H 94 Nasal Cannula O2 Flow Rate 01/11/24 07:50 3 01/11/24 05:24 01/11/24 03:08 2 01/10/24 22:57 3 01/10/24 22:00 3 01/10/24 20:24 3 Laboratory Results Short CBC 01/11/24 Range/Units 09:00 WBC 13.83 H (4.8-10.8) K/ul Hgb 10.9 L (12.0-16.0) g/dl Hct 32.4 L (37.0-47.0) % Plt Count 311 (130-400) K/uL BMP 01/11/24 09:00 Creatinine 0.83 Diagnostic Findings Pending Cervical MRI Medications Administered Home Medications Medication Instructions Recorded Confirmed Last Taken amlodipine 5 mg tablet 5 mg PO DAILY 01/06/24 01/06/24 Unknown aspirin 81 mg tablet,delayed 81 mg PO DAILY 01/06/24 01/06/24 Unknown release atorvastatin 20 mg tablet 20 mg PO DAILY 01/06/24 01/06/24 Unknown calcitriol 0.25 mcg capsule 0.25 mcg PO UD 01/06/24 01/06/24 Unknown colchicine 0.6 mg tablet 0.6 mg PO DAILY PRN gout attack 01/06/24 01/06/24 Unknown fluticasone propionate 50 1 spray intranasal DAILY 01/06/24 01/06/24 Unknown mcg/actuation nasal spray,suspension gabapentin 400 mg capsule 400 mg PO UD 01/06/24 01/06/24 Unknown lorazepam 0.5 mg tablet 0.5 mg PO TID PRN Anxiety 01/06/24 01/06/24 Unknown meloxicam 15 mg tablet 15 mg PO DAILY PRN Pain 01/06/24 01/06/24 Unknown metoprolol succinate 25 mg 25 mg PO UD 01/06/24 01/06/24 Unknown tablet,extended release 24 hr semaglutide 1 mg/dose (4 mg/3 mL) 1 mg subcut WK 01/06/24 01/06/24 Unknown subcutaneous pen injector (Ozempic) tramadol 50 mg tablet 50 mg PO Q6H PRN Severe Pain 01/06/24 01/06/24 Unknown (Scale Score 7-10) aspirin 81 mg tablet,delayed 81 mg PO DAILY 01/07/24 01/07/24 Unknown release furosemide 20 mg tablet 60 mg PO DAILY 01/07/24 01/07/24 Unknown losartan 100 mg tablet 100 mg PO DAILY 01/07/24 01/07/24 Unknown omeprazole 20 mg capsule,delayed 20 mg PO DAILY 01/07/24 01/07/24 Unknown release Active Medications Generic Name Dose Route Start Last Admin Trade Name Freq PRN Reason Stop Dose Admin Acetaminophen 1,000 mg 01/06/24 21:00 01/10/24 21:46 Acetaminophen 500 Mg Tab PO 02/05/24 20:59 1,000 mg TID VAN Administration Amlodipine Besylate 10 mg 01/09/24 09:00 01/10/24 08:12 Amlodipine Besylate 5 Mg Tab PO 02/08/24 08:59 10 mg QAM VAN Administration Aspirin 81 mg 01/06/24 09:00 01/10/24 08:13 Aspirin 81 Mg Ectab PO 02/05/24 08:59 81 mg DAILY VAN Administration Atorvastatin Calcium 20 mg 01/06/24 09:00 01/10/24 08:13 Atorvastatin 20 Mg Tab PO 02/05/24 08:59 20 mg DAILY VAN Administration Calcitriol 0.25 mcg 01/07/24 09:00 01/09/24 09:32 Calcitriol 0.25 Mcg Capsule PO 02/06/24 08:59 0.25 mcg TuTh@0900 VAN Administration Carvedilol 25 mg 01/09/24 17:00 01/10/24 16:54 Carvedilol 25 Mg Tab PO 02/08/24 16:59 25 mg BIDM VAN Administration Clonidine HCl 0.1 mg 01/10/24 21:00 01/10/24 21:45 Clonidine Hcl 0.1 Mg Tab PO 02/09/24 20:59 0.1 mg BID VAN Administration Fluticasone Propionate 1 sprays 01/06/24 09:00 01/10/24 08:13 Fluticasone Propionate Na Spr 16 Gm Btl NA 02/05/24 08:59 1 sprays DAILY VAN Administration Gabapentin 400 mg 01/06/24 21:00 01/10/24 21:46 Gabapentin 400 Mg Cap PO 02/05/24 20:59 400 mg PM VAN Administration Gabapentin 800 mg 01/06/24 09:00 01/10/24 08:14 Gabapentin 800 Mg Tab PO 02/05/24 08:59 800 mg QAM VAN Administration Heparin Sodium (Porcine) 5,000 units 01/08/24 14:00 01/11/24 06:33 Heparin Sod 5,000 Unit/0.5 Ml Vial SQ 02/07/24 13:59 5,000 units Q8 VAN Administration Vancomycin HCl 1,500 mg/ 530 mls @ 200 mls/hr 01/09/24 08:00 01/11/24 01:54 Sodium Chloride IV 01/23/24 07:59 Infused Q18H VAN Infusion Insulin Aspart 0 units 01/06/24 21:00 01/10/24 21:50 Insulin Aspart Per Unit Charge SC 02/05/24 20:59 1 units ACHS VAN Administration Isosorbide Mononitrate 30 mg 01/10/24 13:34 01/10/24 14:36 Isosorbide [place] Extended Rel 30 Mg Tabcr PO 02/09/24 13:33 30 mg QAM VAN Administration Labetalol HCl 20 mg 01/10/24 02:13 01/10/24 02:24 Labetalol Hcl Iv 5 Mg/Ml 20ml IV 02/07/24 11:24 20 mg Q4H PRN Administration SBP>180 Lorazepam 0.5 mg 01/06/24 04:54 01/11/24 03:34 Lorazepam 0.5 Mg Tab PO 02/05/24 04:53 0.5 mg TID PRN Administration Anxiety Losartan Potassium 100 mg 01/09/24 09:00 01/10/24 08:14 Losartan Potassium 50 Mg Tab PO 02/08/24 08:59 100 mg QAM VAN Administration Ondansetron HCl 4 mg 01/06/24 09:27 01/06/24 12:42 Ondansetron Inj 2 Mg/Ml 2 Ml Vial IV 02/05/24 09:26 4 mg Q4H PRN Administration Nausea Tramadol HCl 50 mg 01/06/24 04:54 01/11/24 03:34 Tramadol Hcl 50 Mg Tablet PO 02/05/24 04:53 50 mg Q6H PRN Administration Severe Pain (Scale Score 7-10)
[2024-01-11] MEDS: HYDROmorphone INJ 0.5 MG/0.5 ML SYR IV STA (08:13)
--- NOTE | 2024-01-11 08:25 | Cardiology Progress Note ---
Date of Service January 11, 2024 Assessment & Plan (1) Sepsis: (2) Bacteremia due to Staphylococcus: Plan: * DUANE negative for vegetation * LP with WBCs in CSF, CSF gram stain was negative, culture pending * Continue vancomycin * ID is on the case * 2 cultures positive thus far, 3rd is negative after 48 hours (3) Bacterial meningitis: Plan: +LP yesterday with bacteria CSF culture is pending (4) Atrial fibrillation with rapid ventricular response: Plan: * Converted to SR on hospital day one. * Newly diagnosed AF. * Holding anticoagulation for now given somnolence. CT , CTA head / neck, MRI without acute abnormality * Continue ASA, DVT prophylaxis dose of heparin for now * Will reassess candidacy for anticoagulation on a daily basis * Change metoprolol to Coreg for better BP effect * Remains in NSR (5) Hypertension: Plan: * Transferred to ICU given hypertensive urgency. * Started on nicardipine gtt. BP improving this morning. * Resumed [employer] losartan 100 mg daily * Amlodipine increased from 5 to 10 mg (Home dose 5 mg) * Metoprolol changed to coreg 25 mg BID * Clonidine initiated at 0.1 mg in AM (6) Altered mental status: Plan: * as noted CT , MRI brain without acute findings * Improved mildly after narcan administration on 01/08/24. * Mental status improving this morning Plan Patient with increased edema of the upper and lower extremities noted. Pulm vascular congestion on chest xray +Fluid balance given necessary IV medications Given one dose IV lasix this morning 40 mg. Potassium being supplemented. Case discussed with Dr. Quintana I spent a total of 40 minutes on the date of service in preparation, delivery, and documentation of the care provided to this patient, excluding any time spent in the performance of separately billed services. Bushra Restrepo PA-C Department of Cardiology, [facility] This chart was completed in part utilizing Speech Voice Recognition Software. Grammatical errors, random word insertions, pronoun errors, and incomplete sentences are an occasional consequence of this system due to software limitations, ambient noise, and hardware issues. Any formal questions or concerns about the content, text, or information contained within the body of this dictation should be directly addressed to the provider for clarification. Admission and Anticipated Discharge Date Admission Date: January 06, 2024 Subjective 01/11/24:Patient seen and examined in follow up today. Feeling Labs, vitals, diagnostics, telemetry and documentation reviewed. Telemetry reviewed showing Results & Data Vital Signs (Past 12 Hours) Vital Signs Temp Pulse Pulse Resp BP Pulse Ox O2 Del Method 01/11/24 07:50 36.6 C 76 16 207/78 H 95 Nasal Cannula 01/11/24 05:24 59 L 01/11/24 03:08 36.9 C 64 18 170/80 H 95 Nasal Cannula 01/10/24 22:57 36.4 C L 64 18 122/64 92 Nasal Cannula 01/10/24 22:00 Nasal Cannula 01/10/24 20:24 36.5 C 59 L 18 161/65 H 94 Nasal Cannula O2 Flow Rate 01/11/24 07:50 3 01/11/24 05:24 01/11/24 03:08 2 01/10/24 22:57 3 01/10/24 22:00 3 01/10/24 20:24 3 (1) Sepsis Sepsis acute organ dysfunction status: without acute organ dysfunction Sepsis type: sepsis due to unspecified organism Qualified Code(s): A41.9 - Sepsis, unspecified organism (5) Hypertension Hypertension type: renovascular hypertension Qualified Code(s): I15.0 - Renovascular hypertension
[2024-01-11 09:15] LABS: Basophils # (auto) 0.08 K/uL (0.00-0.20); Basophils % (auto) 0.6 %; Eosinophils # (auto) 0.33 K/uL (0.00-0.50); Eosinophils % (auto) 2.4 %; Hematocrit (blood only) 32.4 % (37.0-47.0); Hemoglobin 10.9 g/dl (12.0-16.0); Immature Granulocytes # (auto) 0.43 K/uL (0.01-0.20); Immature Granulocytes % (auto) 3.1 %; Lymphocytes # (auto) 1.13 K/uL (1.20-3.40); Lymphocytes % (auto) 8.2 %; Mean Corpuscular Hemoglobin 31.5 pg (25.0-34.0); Mean Corpuscular Hgb Conc 33.6 g/dL (32.0-36.0); Mean Corpuscular Volume 93.6 fL (80.0-100.0); Mean Platelet Volume 9.6 fL (9.4-12.4); Monocytes # (auto) 1.01 K/uL (0.11-0.59); Monocytes % (auto) 7.3 %; Neutrophils # (auto) 10.85 K/uL (1.40-6.50); Neutrophils % (auto) 78.4 %; Platelet Count 311 K/uL (130-400); RDW Coefficient of Variation 13.9 % (11.5-14.5); RDW Standard Deviation 47.8 fL (36.4-46.3); Red Blood Count 3.46 M/uL (4.20-5.40); White Blood Count 13.83 K/ul (4.8-10.8)
[2024-01-11 09:33] LABS: Est GFR (African American) 78.3 ml/min; Est GFR (Non-African American) 67.5 ml/min; Phosphorus 3.5 mg/dl (2.5-4.9)
[2024-01-11] MEDS: GADOBUTROL 65ML VIAL IV ONE (11:39)
--- NOTE | 2024-01-11 11:42 | Pharmacy Report ---
Pharmacy PK ABX Note - Date of Service January 11, 2024 - Assessment and Plan Assessment 01/10 * Random level of 21.4 mcg/mL is associated with a therapeutic AUC of 583 mg/L.hr. Upper end of goal range appropriate for indication. SCr stable. Will order repeat level in 2 days 01/09 * 78 year old F receiving VANCOMYCIN for treatment of CAP, MRSA bacteremia. * Pertinent microbiologic data includes: Positive MRSA Nasal Swab, MRSA growing in 2/2 BLCX from 01/05, repeat BLCX 01/07 no growth to date, negative resp BioFire, negative smear/serologies for Babesia/Anaplasma, negative Lyme screen * DUANE negative * LP performed 01/08 with features consistent w/ bacterial meningitis (WBC 1246, GLU 39, Protein 850), CSF gram stain w/o any organisms observed * CSF BioFire negative for usual pathogens (note, s aureus not included in this panel) * Day # 5 abx therapy; planned duration 4-6wks from 1st negative BLCX * Renal fxn stable Plan Vancomycin * Current maintenance dose of 1500 mg IV every 18 hours is predicted to achieve target AUC/RENAN of 400-600 mg/L.hr * Will repeat drug level 01/12 at 1000 (8 hours after dose at 0200) Pharmacy will continue to follow and will adjust dose/frequency as necessary. Thank you. Pharmacy has transitioned to AUC monitoring for vancomycin. AUC/RENAN is the preferred PK/PD target and is associated with decreased risk of nephrotoxicity compared to traditional trough targets.
[2024-01-11 15:02] LABS: BUN Creatinine Ratio 43.7 (10-20); Calcium 8.8 mg/dl (8.6-10.3); Creatinine Clr Calc Pharmacy 72.5 ml/min; Est GFR (Non-African American) 63.8 ml/min; Potassium 3.9 mmol/L (3.5-5.1)
--- NOTE | 2024-01-11 15:32 | Magnetic Resonance Report ---
MR cervical spine wo/w con HISTORY: 78 years-old Female severe neck pain, r/o abscess acute severe neck pain COMPARISON: CTA neck 01/08/2024 TECHNIQUE: Multiplanar multisequence MRI of the cervical spine was obtained with and without IV contr ast. FINDINGS: Motion degraded exam. There is a large peripherally enhancing posterior epidural fluid collection ext ending from the skull base into the upper thoracic spine outside the [id number]. This measures up to at least 15 cm in length and measures up to 2.3 x 1.0 cm in transverse and AP dimension, largest a t C2-C6.T here is considerable posterior mass effect upon the majority of the cervical spinal cord an d upper thoracic spinal cord with severe narrowing of the central canal extending from C2-C3 into the visualized upper thoracic spine. There is moderate edema throughout the posterior paraspinal muscula ture with upper thoracic prominent joint effusions. There is partially imaged marrow edema involving the T3 vertebral body which was also noted on prior. No evidence of acute cervical discitis/osteomyel itis. Unchanged T1 vertebral body hemangioma. Neural foramen are not well seen secondary to motion di ctation. Normal signal the cervical spinal cord. C2-C3: Mild intervertebral disc space narrowing. Posterior annular disc bulging with moderate facet a rthrosis. Posterior epidural fluid collection also noted. Constellation of findings cause moderate ce ntral canal stenosis, AP dimension of the thecal sac measuring 5 mm. Mild bilateral foraminal narrowi ng. C3-C4: Mild intervertebral disc space narrowing. Vertebral hypertrophy with small posterior annular d isc bulge. Posterior epidural fluid collection. Moderate facet arthrosis. AP dimension of the thecal sac measures 4 mm. Severe central canal stenosis with mild right and moderate left foraminal narrowin g. C4-C5: Severe central canal stenosis, AP dimension of the thecal sac measuring 4 mm. Moderate right w ith [id number] left foraminal narrowing. C5-C6: Severe intervertebral disc space narrowing and posterior disc osteophyte complex. Posterior ep idural fluid collection with moderate facet arthrosis. Severe central canal stenosis, AP dimension of the thecal sac measuring 4 mm. Severe right with moderate left foraminal narrowing. C6-C7: Moderate to severe intervertebral disc space narrowing with posterior disc osteophyte complex. Posterior epidural fluid collection with moderate facet arthrosis. AP dimension of the thecal sac me asures 4 mm. Severe central canal stenosis with severe right and moderate left foraminal narrowing. C7-T1: Mild intervertebral disc space narrowing with moderate facet arthrosis. AP dimension of thecal sac measures 4 mm. Severe intervertebral disc space narrowing with mild right and moderate left fora adriano narrowing. IMPRESSION: 1. There is a large peripherally enhancing posterior epidural fluid collection extending from the C1- C2 articulation into the upper thoracic spine, outside the [id number]. This measures up to 15 cm i n length and is suggestive of an epidural abscess. 2. Resultant severe multilevel central canal stenosis with normal signal of the visualized cervical a nd upper thoracic spinal cord. 3. Multilevel degenerative neural foraminal narrowing. 4. There is diffuse edema within the posterior paraspinal musculature. Correlate clinically to exclud e myositis. 5. Facet effusions are most pronounced in the upper thoracic spine and there is also a small effusion at C1-C2. These findings may be on a degenerative basis or present infectious arthropathy. 6. No evidence of acute cervical spine discitis/osteomyelitis. Findings were discussed with Autumn Emerson on 01/11/2024 at 3:25 PM ACT 112: Negative or not required by law. The above report was generated using voice recognition software. It may contain grammatical, syntax o r spelling errors. Electronically signed by: Gustavo Charles M.D. 01/11/2024 3:29 PM
[2024-01-11] MEDS ORDERED: STROKE PATIENT DISCHARGE STA (17:13)
--- NOTE | 2024-01-11 17:14 | Discharge Summary ---
Discharge Summary Date of Service January 11, 2024 Principal Dx & Hospital Course #1 = Principal Diagnosis (1) Severe sepsis with acute organ dysfunction: (2) Bacterial meningitis: (3) Bacteremia due to Staphylococcus: (4) Stroke determined by clinical assessment: Suspect either hypertensive versus septic emboli (5) Uncontrolled hypertension: (6) Acute metabolic encephalopathy: (7) Delirium due to another medical condition: (8) Paroxysmal atrial fibrillation with rapid ventricular response: Converted to sinus rhythm (9) Spinal stenosis excluding cervical region: (10) Demand ischemia of myocardium: (11) Acute back pain: (12) Diabetes mellitus, type 2: (13) Morbid obesity: (14) Chronic kidney disease: Plan Ms. 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 Patient underwent extensive work up with LP suggestive of meningitis, DUANE without endocarditis, and no clear source. Patient noted to continue endorsing severe neck pain that resulted in pressures upwards to 200s. MRI c-spine was pursued which revealed large epidural abscess. Patient continued on vancomycin and transfer promptly pursued. On day of transfer, patient was hemodynamically stable, but pain still difficult to control. Long discussion with and daughter at bedside was had and everyone agreed to transfer. Per request of neurosugery, discussion with ortho spine at [facility] was had--the spine team does not do such operations in c spine here at [facility]. Patient eventually accepted to medical service at [facility]. #Severe Sepsis, multifactorial #Bacteremia due to Staphylococcus #Bacterial Meningitis 01/08 DUANE: No evidence of a valvular vegetation. Small, incidental PFO BCX +MRSA LP suggestive of bacterial meningitis (WBC, 1246, pleocytosis; TProt, 850; Glu, 39) Remains on IV Vancomycin Infectious Disease consulted PICC line consultation, surveillance blood culture are sterile at 48 hours, patient will need a minimum of 4 to 6 weeks of IV vancomycin Plan for final recommendations contingent on MRI Patient with large epidural abscess Transfer to [facility] #Volume overload s/p IV lasix stable #Large epidural abscess #Acute neck pain #Acute left weakness Stroke work up Negative Neurology followed ? if pain contributing to symptoms Thoracic, lumbar spine MRI negative C-Spine MRI not obtained, will order to exclude epidural abscess or discitis Transfer to [facility] for debridement of epidural abscess #Atrial fibrillation with rapid ventricular response, converted NSR -No prior history of AF. CT , CTA head / neck, MRI without acute abnormality -Continue ASA, DVT prophylaxis dose of heparin for now -Metoprolol transitioned to Coreg, currently 25mg BID #Hypertensive Urgency Initially transferred to ICU on 01/08 for BP up to 220s Briefly on nicardipine gtt. Resolved with initiation of clonidine Now PCU Continue losartan 100mg daily Continue increased amlodipine 10mg daily Continue Clonidine at 0.1 mg BID Started Imdur 30mg this admission #Acute encephalopathy , likely multifactorial iso sepsis/critical illness reportedly improving Avoid benzos Delirium precautions Reduce Gabapentin to 400 BID from home 800/400 regimen Reduce frequency of tramadol Notes For Next Care Provider Medication Changes From Visit IV vancomycin Reduced gabapentin from 800/400 to 400 bid Continue increased amlodipine 10mg daily started Clonidine at 0.1 mg BID Started Imdur 30mg this admission Admission HPI Per Admitting Provider 78-year-old female with past medical history significant for type 2 diabetes, hyperlipidemia, gout, renal artery stenosis, hypertension, chronic diastolic CHF, CKD stage III, GERD, morbid obesity, 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 She has chronic back pain but got worse last night. With the pain medicine currently back pain is improved. Currently no chest pain. Denies headache. No neck pain. 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 Denies runny nose. No sore throat or cough. Currently no shortness of breath.No nausea. No abdominal pain. Had normal bowel movement yesterday. Micturating okay. Denies blood in the stools. Denies hematuria. Denies any tick bites. Past medical history. As mentioned above Past surgical history. Bilateral angio kidneys arteries. Biopsy of breast left fibroadenoma. Colonoscopy. After catheterization. Quinocort of cervix. Dilatation curettage. Left partial mastectomy in 2019. Robotic assisted total laparoscopic hysterectomy and bilateral salpingo-oophorectomy with diagnostic cystoscopy. Ligation of oviducts. Bilateral cataracts. Open cholecystectomy. Removal lumbar spine lamina. Renal artery angioplasty and stent placement. Left renal stent/right renal angioplasty injection of sacroiliac joint. Ultrasound-guided biopsy of the left breast Social history. . No smoking. No alcohol use. No drug use. Family history. Daughter had AAA. Daughter has MS.. Allergies. Paternal grandfather had lung cancer. Maternal grandmother had breast cancer. Paternal grandmother had heart disorder. Hypertension. Mother had colon and uterine cancer. Stroke. Father had a heart disorder. of renal failure. Psoriasis. . Admission Exam Per Admitting Provider General- Not in distress Head- atraumatic Eyes- PERRL,. ENT- oropharynx clear Neck- supple, no JVD. Lungs- clear to auscultation no wheezing or crackles Heart- irregular rhythm;tachycardia, no murmur, no gallop. Abdomen- normal bowel sounds, soft, nontender, no distension Extremities- no pretibial edema, no erythema seen Neuro- alert, oriented PERRL, no facial palsy; no dysarthria; moves extremities. Discharge Exam Constitutional weak appearing, but conversational AO x2-3 Respiratory normal respiratory effort, lungs clear to auscultation Cardiovascular RRR, no murmur, no edema Neurologic slight left nasolabial flattening, LUE weakness 3-4/5, spontaneous movement of all limbs, no dysarthria Updated Medication List Medication Instructions Recorded Confirmed Type aspirin 81 mg tablet,delayed 81 mg PO DAILY 01/06/24 01/06/24 History release atorvastatin 20 mg tablet 20 mg PO DAILY 01/06/24 01/06/24 History calcitriol 0.25 mcg capsule 0.25 mcg PO UD 01/06/24 01/06/24 History fluticasone propionate 50 1 spray intranasal DAILY 01/06/24 01/06/24 History mcg/actuation nasal spray,suspension lorazepam 0.5 mg tablet 0.5 mg PO TID PRN Anxiety 01/06/24 01/06/24 History metoprolol succinate 25 mg 25 mg PO UD 01/06/24 01/06/24 History tablet,extended release 24 hr semaglutide 1 mg/dose (4 mg/3 mL) 1 mg subcut WK 01/06/24 01/06/24 History subcutaneous pen injector (Ozempic) furosemide 20 mg tablet 60 mg PO DAILY 01/07/24 01/07/24 History losartan 100 mg tablet 100 mg PO DAILY 01/07/24 01/07/24 History omeprazole 20 mg capsule,delayed 20 mg PO DAILY 01/07/24 01/07/24 History release Vancomycin Consult Active [Consult] 1 ea Not Applicable UD PRN ##0 01/11/24 Rx acetaminophen 500 mg tablet 1,000 mg (2 x 500 mg) PO TID #0 01/11/24 Rx (Tylenol Extra Strength) tabs amlodipine 5 mg tablet 10 mg (2 x 5 mg) PO DAILY #0 tabs 01/11/24 01/06/24 Rx carvedilol 25 mg tablet 25 mg PO BIDM #0 tabs 01/11/24 Rx clonidine HCl 0.1 mg tablet 0.1 mg PO BID #0 tabs 01/11/24 Rx clonidine HCl 0.1 mg tablet 0.1 mg PO Q8H PRN #0 tabs 01/11/24 Rx gabapentin 400 mg capsule 400 mg PO BID #0 caps 01/11/24 01/06/24 Rx heparin, porcine (PF) 5,000 5,000 unit (0.5 mL) subcut Q8 #0 mL 01/11/24 Rx unit/0.5 mL injection syringe isosorbide mononitrate 30 mg 30 mg PO QAM #0 tabs 01/11/24 Rx tablet,extended release 24 hr labetalol 5 mg/mL intravenous 20 mg (4 mL) IV Q4H PRN #0 mL 01/11/24 Rx solution tramadol 50 mg tablet 50 mg PO Q8H PRN Severe Pain 01/11/24 01/06/24 Rx (Scale Score 7-10) #0 tabs Hospital Stay Data Consultations 01/06/24 03:26 ED Decision to Admit Stat 01/06/24 08:00 Consult Cardiology Routine 01/07/24 07:37 Consult Infectious Diseases Routine 01/07/24 12:29 Consult Anesthesiology Routine 01/08/24 11:17 Consult Neurology Routine 01/09/24 19:27 Consult Manager Financial Routine Procedures Performed Operation Date: 01/09/24 07:45 Actual Procedures p Echo Transesophageal - DO zackary Aranda Echo Color Flow - DO zackary Aranda Echo Doppler Complete - Aren Quintana DO Diagnostic Imagining Performed 01/06/24 01:48 CT head/brain wo con Stat 01/06/24 01:55 CT Abd and Pelvis [CT abd pelvis IV con only] Stat CT angio chest PE protocol Stat 01/06/24 14:24 MRI Lumbar Spine [MR lumbar spine wo con] Routine MRI Thoracic [MR thoracic spine wo con] Routine 01/08/24 10:[address] [CT head/brain wo con] Stat 01/08/24 10:26 CT angio head w con Stat CT angio neck with con Stat 01/08/24 11:16 MR brain wo/w con Routine 01/09/24 11:13 IR lumbar puncture diagnostic Routine 01/11/24 08:15 MRI Cervical [MR cervical spine wo/w con] Routine Pending Results Patient Have Any Pending Studies at Discharge: No Discharge Instructions Given to Patient (Per Discharging Provider) Ms. 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 #Severe Sepsis, multifactorial #Bacteremia due to Staphylococcus #Bacterial Meningitis 01/08 UDANE: No evidence of a valvular vegetation. Small, incidental PFO BCX +MRSA LP suggestive of bacterial meningitis (WBC, 1246, pleocytosis; TProt, 850; Glu, 39) Remains on IV Vancomycin Infectious Disease consulted PICC line consultation, surveillance blood culture are sterile at 48 hours, patient will need a minimum of 4 to 6 weeks of IV vancomycin Plan for final recommendations contingent on MRI Patient with large epidural abscess #Volume overload s/p IV lasix stable #Large epidural abscess #Acute neck pain #Acute left weakness Stroke work up Negative Neurology followed ? if pain contributing to symptoms Thoracic, lumbar spine MRI negative C-Spine MRI not obtained, will order to exclude epidural abscess or discitis Transfer to [facility] for debridement of epidural abscess #Atrial fibrillation with rapid ventricular response, converted NSR -No prior history of AF. CT , CTA head / neck, MRI without acute abnormality -Continue ASA, DVT prophylaxis dose of heparin for now -Metoprolol transitioned to Coreg, currently 25mg BID #Hypertensive Urgency Initially transferred to ICU on 01/08 for BP up to 220s Briefly on nicardipine gtt. Resolved with initiation of clonidine Now PCU Continue losartan 100mg daily Continue increased amlodipine 10mg daily Continue Clonidine at 0.1 mg BID Started Imdur 30mg this admission #Acute encephalopathy , likely multifactorial iso sepsis/critical illness reportedly improving Avoid benzos Delirium precautions Reduce Gabapentin to 400 BID from home 800/400 regimen Reduce frequency of tramadol Total Time Total Time Spent Total Time Spent (In Minutes): 65
[2024-01-11] MEDS: traMADol HCL 50 MG TABLET PO PRN (17:19)
[2024-01-12] MEDS ORDERED: GABAPENTIN 800 MG TAB PO SCH (09:00)
== END 2024-01-12 01:45 | disposition short-term general hospital (02) | DRG 871 ==
LOC: ED 01:37 → EDINP 04:18 → SUATTDRO 04:18 → 2E 04:55 → 1E 01-09 18:25 → 2S 01-10 13:20

== ENCOUNTER 2024-01-30 13:00 | Inpatient (IN) ==
--- NOTE | 2024-01-30 14:39 | Emergency Department Note ---
Impression & Plan Pleural effusion, Cardiomegaly, Pulmonary edema ED Provider Note NAME: LIV GADNHI AGE: 78 SEX: F : 1945 ARRIVES VIA: Ambulance INFORMANT: Patient, ED PROVIDER(S): Real Foreman MD CHIEF COMPLAINT: Back pain HPI: This a 78-year-old female presenting for back pain. Patient states that she has had back pain for years and this feels similar to previous sciatic back pain. She notes that is lower lumbar back pain which feels like a sharp sensation. She has had this before it does feel slightly more severe. She also notes a recent history of "spinal infection. Upon record review it appears that patient was here for sepsis and eventually diagnosed with meningitis/epidural abscess and sent to outside hospital for neurosurgical intervention. She notes no pain in this region where she had the surgery/infection. She notes no fever, chills, confusion. She does note some weakness and was told that her blood levels are dropping for some reason. ROS: See above HPI for pertinent positives & negatives. A total of 10 systems reviewed and were otherwise negative. PAST MEDICAL HISTORY: See Below PAST SURGICAL HISTORY: See Below FAMILY HISTORY: See Below SOCIAL HISTORY: See Below HOME MEDICATIONS: See Below ALLERGIES: See Below VITALS: See Below PHYSICAL EXAMINATION: General: resting comfortably in no acute distress Head: Normocephalic and atraumatic Eyes: Normal inspection, extraocular muscles intact Ear, nose, throat: Normal external exam Neck: Normal range of motion, well-healing surgical scar to the cervical spine with thanh in place Back: No obvious tenderness/fluctuance or erythema Respiratory: lungs clear to auscultation bilaterally Cardiovascular: Regular rate/rhythm, no murmur GI: soft, nontender, no guarding or rebound, Extremities: nontender, moves all extremities Neuro: The patient awake and alert, appropriately conversive, no focal deficits, symmetric faces Skin: Warm, dry, and intact MEDICAL DECISION MAKING: This is a 78-year-old female presenting for back pain. Currently patient has lower lumbar pain. Will do CT abdomen/pelvis with a lumbar. Will also do CTA as patient is currently hypoxic, short of breath. Consider PE as patient has had recent surgery, has been significantly bedbound otherwise. Patient is still on vancomycin daily injections. -Blood work is reviewed showing a leukocytosis 10.85, hemoglobin is uptrending at 8.2. Was 7.3 yesterday. Otherwise she has normal electrolytes, creatinine 1.23. -CTA of the chest reveals cardiomegaly with mild incisional pulmonary edema, moderate right pleural effusion, small left pleural effusion. Otherwise no acute process in the abdomen or lumbar spine. There is severe multilevel degenerative disease of the lumbar spine -Patient/hypoxia requiring oxygen here, she does not wear oxygen at home. She is 92% on 2 L at this time. This likely due to the pleural effusions. Patient's back pain is actually well-controlled with Dilaudid. -With patient having a reassuring workup for back pain, will require admission for hypoxia/pleural effusions otherwise. Differential diagnosis: Epidural abscess, sciatica, lumbar disc disease, pneumonia, PE ER treatment provided: See below Independent History obtained from: Diagnostics interpreted by me: ECG: None Cardiac Monitoring: An order was placed for continuous cardiac monitoring. The monitor shows a rate of 71 with sinus rhythm. Laboratory studies: As stated above and show below. Imaging studies: See below. Past Med/Surg History Problem List (Updated 01/30/24 @ 21:07 by Real Foreman MD) Pulmonary edema (Acute) Cardiomegaly (Acute) Pleural effusion (Acute) Anemia Epidural abscess (HFpEF) heart failure with preserved ejection fraction Morbid obesity Hypertensive urgency Bacterial meningitis Delirium due to another medical condition Acute metabolic encephalopathy Acute left-sided weakness Stroke determined by clinical assessment Altered mental status Uncontrolled hypertension Spinal stenosis excluding cervical region Bacteremia due to Staphylococcus Severe sepsis with acute organ dysfunction Acute back pain Hypomagnesemia (Acute) CAP (community acquired pneumonia) (Acute) Atrial fibrillation with rapid ventricular response (Acute) Sepsis (Acute) Degenerative arthritis of knee, bilateral Hypertension GERD (gastroesophageal reflux disease) Diabetes Hyperlipidemia MRSA infection Encounter for pre-operative examination Medical History Demand ischemia of myocardium Paroxysmal atrial fibrillation with rapid ventricular response Intraductal papilloma of breast left Morbid obesity Renal artery stenosis status post bilateral renal artery stenting Cancer uterine s/p hysterectomy (no chemo/XRT) Chronic back pain Gout Chronic kidney disease stage III (follows with Dr. Okeefe) GERD (gastroesophageal reflux disease) controlled Diabetes mellitus, type 2 Hypertension Hyperlipidemia Surgical History History of renal stent RIGHT/LEFT History of cataract surgery R/L History of hysterectomy TOTAL History of bilateral tubal ligation History of dilatation and curettage X 2 History of hand surgery RIGHT CYST History of cholecystectomy Fusion of spine LUMBAR Family History Brother Family history of diabetes mellitus Mother Family hx of colon cancer Social History Smoking Status: Never smoker Second Hand Exposure: Yes (SPOUSE SMOKES); Do You Dip or Chew Tobacco: No; Hx Alcohol Use: No Hx Substance Use: No Preferred Language: Taiwanese Communication Ability: Effective Foot Orthopedist Required: No Beliefs That Will Affect Care: None Current Living Situation: Spouse Feels Safe at Home: Yes Assistive Devices: Cane and Walker Allergies Allergies Allergy/AdvReac Type Severity Reaction Status Date / Time allopurinol Allergy Mild RASH Verified 10/01/19 09:44 Penicillins Allergy Mild HIVES Verified 10/01/19 09:44 Bactrim Allergy Unknown ANXIETY Verified 09/26/17 08:37 AND HALLUCINATION sulfamethoxazole AdvReac Intermediate ANXIETY Verified 03/23/21 20:14 AND HALLUCINATION trimethoprim AdvReac Intermediate ANXIETY Verified 03/23/21 20:14 AND HALLUCINATION Home Meds Home Medications Medication Instructions Recorded Confirmed aspirin 81 mg tablet,delayed 81 mg PO DAILY 01/06/24 01/30/24 release atorvastatin 20 mg tablet 20 mg PO DAILY 01/06/24 01/30/24 calcitriol 0.25 mcg capsule 0.25 mcg PO UD 01/06/24 01/30/24 fluticasone propionate 50 1 spray intranasal DAILY 01/06/24 01/30/24 mcg/actuation nasal spray,suspension lorazepam 0.5 mg tablet 0.5 mg PO TID PRN Anxiety 01/06/24 01/30/24 semaglutide 1 mg/dose (4 mg/3 mL) 1 mg subcut WK 01/06/24 01/30/24 subcutaneous pen injector (Ozempic) furosemide 20 mg tablet 60 mg PO DAILY 01/07/24 01/30/24 losartan 100 mg tablet 100 mg PO DAILY 01/07/24 01/30/24 omeprazole 20 mg capsule,delayed 20 mg PO DAILY 01/07/24 01/30/24 release Previous Rx's Medication Instructions Recorded Vancomycin Consult Active [Consult] 1 ea Not Applicable UD PRN ##0 01/11/24 acetaminophen 500 mg tablet 1,000 mg (2 x 500 mg) PO TID #0 01/11/24 (Tylenol Extra Strength) tabs amlodipine 5 mg tablet 10 mg (2 x 5 mg) PO DAILY #0 tabs 01/11/24 carvedilol 25 mg tablet 25 mg PO BIDM #0 tabs 01/11/24 clonidine HCl 0.1 mg tablet 0.1 mg PO BID #0 tabs 01/11/24 clonidine HCl 0.1 mg tablet 0.1 mg PO Q8H PRN #0 tabs 01/11/24 gabapentin 400 mg capsule 400 mg PO BID #0 caps 01/11/24 heparin, porcine (PF) 5,000 5,000 unit (0.5 mL) subcut Q8 #0 mL 01/11/24 unit/0.5 mL injection syringe isosorbide mononitrate 30 mg 30 mg PO QAM #0 tabs 01/11/24 tablet,extended release 24 hr tramadol 50 mg tablet 50 mg PO Q8H PRN Severe Pain 01/11/24 (Scale Score 7-10) #0 tabs Results & Data (ED) Vital Signs Vital Signs - 24 hr 01/30/24 13:10 01/30/24 13:10 01/30/24 14:09 Temperature 36.6 C Temperature Source Oral Pulse Rate 76 Pulse Rate [Left Brachial] 76 Pulse Rhythm Regular Pulse Rhythm [Left Brachial] Regular Pulse Strength Normal Pulse Strength [Left Brachial] Normal Respiratory Rate 20 20 Respiratory Effort / Characteristics Non-Labored Non-Labored Respiratory Depth Normal Normal Respiratory Pattern Regular Regular Blood Pressure 144/62 H Blood Pressure [Left Arm] 144/62 H Blood Pressure Mean 89 Blood Pressure Mean [Left Arm] 89 Blood Pressure Position [Left Arm] Lying Pulse Oximetry 93 93 98 Oxygen Delivery Method Nasal Cannula Nasal Cannula Nasal Cannula Oxygen Flow Rate 2 2 2 Sepsis Recent Fever Within 48 Hours No Sepsis New/Unexplained Change in Mental Status No Sepsis Action Taken by Nursing No Action Required 01/30/24 15:00 01/30/24 18:53 01/30/24 20:53 Temperature Temperature Source Pulse Rate Pulse Rate [Left Brachial] 84 77 71 Pulse Rhythm Pulse Rhythm [Left Brachial] Regular Regular Pulse Strength Pulse Strength [Left Brachial] Normal Normal Respiratory Rate 18 16 18 Respiratory Effort / Characteristics Non-Labored Non-Labored Spontaneous Non-Labored Respiratory Depth Normal Normal Normal Respiratory Pattern Regular Regular Regular Blood Pressure Blood Pressure [Left Arm] 156/63 H 149/73 H 168/57 H Blood Pressure Mean Blood Pressure Mean [Left Arm] 94 98 94 Blood Pressure Position [Left Arm] Lying Lying Pulse Oximetry 93 94 92 Oxygen Delivery Method Nasal Cannula Nasal Cannula Room Air Oxygen Flow Rate 2 2 2 Sepsis Recent Fever Within 48 Hours Sepsis New/Unexplained Change in Mental Status Sepsis Action Taken by Nursing Laboratory Data 01/30/24 13:08 01/30/24 13:08 Lab Results 01/30/24 01/30/24 Range/Units 13:05 13:08 WBC 10.85 H (4.8-10.8) K/ul RBC 2.69 L (4.20-5.40) M/uL Hgb 8.2 L (12.0-16.0) g/dl Hct 25.5 L (37.0-47.0) % MCV 94.8 (80.0-100.0) fL MCH 30.5 (25.0-34.0) pg MCHC 32.2 (32.0-36.0) g/dL RDW Std Deviation 45.7 (36.4-46.3) fL RDW Coeff of Monse 13.1 (11.5-14.5) % Plt Count 449 H (130-400) K/uL MPV 9.5 (9.4-12.4) fL Immature Gran % (Auto) 0.6 % Neut % (Auto) 73.0 % Lymph % (Auto) 10.5 % [place] % (Auto) 8.4 % Eos % (Auto) 6.9 % Baso % (Auto) 0.6 % Neut # (Auto) 7.91 H (1.40-6.50) K/uL Lymph # (Auto) 1.14 L (1.20-3.40) K/uL [place] # (Auto) 0.91 H (0.11-0.59) K/uL Eos # (Auto) 0.75 H (0.00-0.50) K/uL Baso # (Auto) 0.07 (0.00-0.20) K/uL Immature Gran # (Auto) 0.07 (0.01-0.20) K/uL Sodium 138 (136-145) mmol/L Potassium 4.3 (3.5-5.1) mmol/L Chloride 108 H (98-107) mmol/L Carbon Dioxide 22 (21-32) mmol/L Anion Gap 8 (3-11) BUN 27 H (6-23) mg/dl Creatinine 1.23 H (0.6-1.2) mg/dl Est Cr Clr Drug Dosing 48.2 ml/min eGFR 44.98 BUN/Creatinine Ratio 22.0 H (10-20) Glucose 120 H (70-99(Fasting)) mg/dl Calcium 8.5 L (8.6-10.3) mg/dl Iron 13 L (35-150) mcg/dl Transferrin 98 L (200-360) mg/dl Ferritin 494.7 H (8-388) ng/ml Total Bilirubin 0.6 (0.2-1.0) mg/dl AST 15 (13-39) U/L ALT 14 (7-52) U/L Alkaline Phosphatase 63 (34-104) U/L Total Protein 5.3 L (6.0-8.3) gm/dl Albumin 2.3 L (3.4-5.0) gm/dl Globulin 3.0 (2.5-4.0) gm/dl Albumin/Globulin Ratio 0.8 L (0.9-2) Administered Medications Calcitriol (Calcitriol 0.25 Mcg Capsule) 0.25 mcg PO TuTh@0900 VAN Stop: 02/29/24 19:44 Last Admin: 01/30/24 20:51 Dose: 0.25 mcg Documented By: CHARLEEN Gabapentin (Gabapentin 400 Mg Cap) 400 mg PO BID VAN Stop: 02/29/24 20:59 Last Admin: 01/30/24 20:51 Dose: 400 mg Documented By: CHARLEEN Discontinued Medications Furosemide (Furosemide 40 Mg/4 Ml Vial) 60 mg IV ONE STA Stop: 01/30/24 18:23 Last Admin: 01/30/24 18:50 Dose: 60 mg Documented By: Hydromorphone HCl (Hydromorphone Inj 0.5 Mg/0.5 Ml Syr) 0.5 mg IV NOW STA Stop: 10/10/24 16:03 Last Admin: 01/30/24 16:21 Dose: 0.5 mg Documented By: CHARLEEN Acetaminophen (Ofirmev) 1,000 mg in 100 mls @ 400 mls/hr IV NOW STA Stop: 01/30/24 16:17 Last Infusion: 01/30/24 16:52 Dose: Infused Documented By: Admin: 01/30/24 16:22 Dose: 400 mls/hr Documented By: CHARLEEN Ioversol (Optiray 320 125ml) 118 ml IV ONCE ONE Stop: 01/30/24 15:46 Last Admin: 01/30/24 15:46 Dose: 118 ml Documented By: DESEAN Imaging Data Radiologist's Impression: Abdomen/Pelvis CT 01/30/24 14:23 CT OF THE ABDOMEN AND PELVIS WITH CONTRAST CLINICAL HISTORY: Abdominal and back pain. Recent surgery. COMPARISON STUDY: CT of the abdomen and pelvis January 06, 2024. TECHNIQUE: Following IV administration of 118 mL of Optiray, axial images of the abdomen and pelvis were obtained from the lung bases to the proximal femurs. Images were reviewed in the axial, sagittal, and coronal planes. IV contrast was administered without complication. Automated exposure control was utilized for the study. A dose lowering technique was utilized adhering to the principles of ALARA. CT DOSE: 2657.84 mGy.cm FINDINGS: Body wall edema is present. Please note that the chest CT will be reported separately. Bilateral pleural effusions, right larger left, are better depicted on that exam. No pneumatosis, free air or portal venous gas is present. Fat-containing right hepatic lobe lesion is benign. There is no significant biliary ductal dilatation status post cholecystectomy. Trace infrahepatic fluid is noted. There is no evidence for a bowel obstruction. The caliber and wall thickness of small and large bowel are normal. Water attenuation bilateral renal lesions represent cysts. Numerous subcentimeter renal lesions are too small to characterize. There is moderate left renal scarring. There is no hydronephrosis. No fluid collections are identified. The bladder is moderately distended. Please note that the lumbar spine CT will be reported separately. No acute fractures are identified. There is severe multilevel degenerative changes within the lumbar spine. IMPRESSION: 1. No bowel obstruction. No bowel wall thickening. 2. Bilateral pleural effusions right larger than left. Trace ascites. Body wall edema. 3. No lumbar spine fractures. Severe multilevel degenerative changes within the lumbar spine. Please see the lumbar spine report for further description. ACT 112: Negative or not required by law. Electronically signed by: Misha Wilkinson M.D. 01/30/2024 4:17 PM Chest CTA 01/30/24 14:23 CT angio chest PE protocol HISTORY: 78 years-old Female with PE, recent surgery, SOB, back pain. Acute shortness of breath with back pain TECHNIQUE: Multiple CTA images of the chest were obtained after the intravenous administration of 118 ml Optiray. Coronal and sagittal MIPS were obtained from the axial data set and were submitted for review. All measurements were obtained according to NASCET criteria. A dose lowering technique was utilized adhering to the principles of ALARA. COMPARISON: CT abdomen and pelvis of same day, CT chest 01/06/2024 FINDINGS: CTA: Heart is upper limits of normal in size. No pericardial effusion. Moderate coronary artery calcifications. Atherosclerosis of aorta without aneurysm. No central pulmonary emboli identified. Suboptimal visualization of the subsegmental branches. A right-sided PICC distal tip terminates within the superior cavoatrial junction. CT CHEST: Subcentimeter hypodense thyroid nodules. Borderline enlarged mediastinal and hilar lymph nodes are likely physiologic. Small left and moderate right pleural effusions with dependent bibasilar consolidation suggestive of atelectasis. Mild intralobular septal thickening. No suspicious pulmonary nodules. Central airways are patent. CT abdomen and pelvis is dictated separately. Mild generalized body wall edema. Degenerative changes of the shoulders and spine. Probable cysts of the superior pole left kidney. IMPRESSION: 1. No pulmonary emboli identified. 2. Cardiomegaly with probable mild interstitial pulmonary edema. 3. Small left and moderate right pleural effusions with bibasilar dependent atelectasis. 4. Please refer to the same day CT abdomen and pelvis study for additional findings. ACT 112: Negative or not required by law. The above report was generated using voice recognition software. It may contain grammatical, syntax or spelling errors. Electronically signed by: Gustavo Charles M.D. 01/30/2024 4:[address] 01/30/24 14:23 CT lumbar spine w con CLINICAL HISTORY: lower back pain COMPARISON STUDY: Lumbar spine CT April 20, 2021. Lumbar spine MRI January 06, 2024. TECHNIQUE: Axial images of the lumbar spine were obtained following intravenous menstruation 118 cc of Optiray 320 IV. Sagittal and coronal reconstructions were viewed. Automated exposure control was utilized for the study. A dose lowering technique was utilized adhering to the principles of ALARA. FINDINGS: For purposes of numbering on this exam, the L5-S1 disc space is assigned to axial image 245 of 368. Vertebral body heights are maintained. No lumbar spine fractures are identified. There is severe multilevel facet arthrosis and moderate to severe multilevel disc space narrowing with endplate osteophytosis. Evaluation of the central canal and neural foramen is significant, given artifact and CT technique. Paravertebral soft tissues are unremarkable by CT. No suspicious osseous lesions are present. Multilevel endplate irregularity is likely degenerative. There is vacuum disc phenomenon at the L3-L4, L4-L5 and L5-S1 levels. Slight anterolisthesis of L3 on L4 and L4 and L5 is unchanged from earlier exam. Please note that the abdomen and pelvis CT will be reported separately. IMPRESSION: 1. No lumbar spine fractures. 2. Severe multilevel degenerative disc disease and facet arthrosis within the lumbar spine. 3. Suboptimal evaluation of the central canal given CT technique and artifact. If concern for epidural process, MRI is recommended. ACT 112: Negative or not required by law. Electronically signed by: Misha Wilkinson M.D. 01/30/2024 4:25 PM Discharge Plan Visit Data Chief Complaint: Back Injury/Pain Stated Complaint: Back pain ED Provider: Real Foreman Discharge Problem: Pleural effusion, Cardiomegaly, Pulmonary edema Forms Stand Alone Forms: My [facility] Prescriptions Prescriptions: No Action atorvastatin 20 mg tablet 20 mg PO DAILY lorazepam 0.5 mg tablet 0.5 mg PO TID PRN (Reason: Anxiety) fluticasone propionate 50 mcg/actuation spray,suspension 1 spray INTRANASAL DAILY calcitriol 0.25 mcg capsule 0.25 mcg PO UD Rx Instructions: once daily on saturday and Ozempic 1 mg/dose (4 mg/3 mL) pen injector 1 mg SUBCUT WK Hold Instructions: resume as directed on discharge aspirin 81 mg Tablet,Delayed Release (Dr/Ec) 81 mg PO DAILY omeprazole 20 mg Capsule,Delayed Release(Dr/Ec) 20 mg PO DAILY furosemide 20 mg Tablet 60 mg PO DAILY Hold Instructions: assess fluid status losartan 100 mg Tablet 100 mg PO DAILY carvedilol 25 mg Tablet 25 mg PO BIDM Qty: 0 0RF clonidine HCl 0.1 mg Tablet 0.1 mg PO Q8H PRNQty: 0 0RF clonidine HCl 0.1 mg Tablet 0.1 mg PO BID Qty: 0 0RF isosorbide mononitrate 30 mg Tablet Extended Release 24 Hr 30 mg PO QAM Qty: 0 0RF heparin, porcine (PF) 5,000 unit/0.5 mL Syringe 5,000 unit subcut Q8 Qty: 0 0RF acetaminophen [Tylenol Extra Strength] 500 mg Tablet 1,000 mg PO TID Qty: 0 0RF Vancomycin Consult Active [Consult] 1 ea Not Applicable UD PRNQty: 0 0RF gabapentin 400 mg capsule 400 mg PO BID Qty: 0 0RF Rx Instructions: 800mg in am and 400mg in pm amlodipine 5 mg tablet 10 mg PO DAILY Qty: 0 0RF tramadol 50 mg tablet 50 mg PO Q8H PRN (Reason: Severe Pain (Scale Score 7-10)) Qty: 0 0RF Referrals Referrals: Nessa Foreman MD [Primary Care Provider] -
[2024-01-30 15:06] LABS: Albumin Globulin Ratio 0.8 (0.9-2); Albumin Level 2.3 gm/dl (3.4-5.0); Bilirubin,Total 0.6 mg/dl (0.2-1.0); Calcium 8.5 mg/dl (8.6-10.3); Creatinine Clr Calc Pharmacy 48.2 ml/min; Potassium 4.3 mmol/L (3.5-5.1); Total Protein 5.3 gm/dl (6.0-8.3)
[2024-01-30 15:09] LABS: Basophils # (auto) 0.07 K/uL (0.00-0.20); Basophils % (auto) 0.6 %; Eosinophils # (auto) 0.75 K/uL (0.00-0.50); Eosinophils % (auto) 6.9 %; Hematocrit (blood only) 25.5 % (37.0-47.0); Hemoglobin 8.2 g/dl (12.0-16.0); Immature Granulocytes # (auto) 0.07 K/uL (0.01-0.20); Immature Granulocytes % (auto) 0.6 %; Lymphocytes # (auto) 1.14 K/uL (1.20-3.40); Lymphocytes % (auto) 10.5 %; Mean Corpuscular Hemoglobin 30.5 pg (25.0-34.0); Mean Corpuscular Hgb Conc 32.2 g/dL (32.0-36.0); Mean Corpuscular Volume 94.8 fL (80.0-100.0); Mean Platelet Volume 9.5 fL (9.4-12.4); Monocytes # (auto) 0.91 K/uL (0.11-0.59); Monocytes % (auto) 8.4 %; Neutrophils # (auto) 7.91 K/uL (1.40-6.50); Platelet Count 449 K/uL (130-400); RDW Coefficient of Variation 13.1 % (11.5-14.5); RDW Standard Deviation 45.7 fL (36.4-46.3); Red Blood Count 2.69 M/uL (4.20-5.40); White Blood Count 10.85 K/ul (4.8-10.8)
[2024-01-30] MEDS: OPTIRAY 320 125ml IV ONE (15:46)
--- NOTE | 2024-01-30 16:20 | CT Scan Report ---
CT OF THE ABDOMEN AND PELVIS WITH CONTRAST CLINICAL HISTORY: Abdominal and back pain. Recent surgery. COMPARISON STUDY: CT of the abdomen and pelvis January 06, 2024. TECHNIQUE: Following IV administration of 118 mL of Optiray, axial images of the abdomen and pelvis w ere obtained from the lung bases to the proximal femurs. Images were reviewed in the axial, sagittal, and coronal planes. IV contrast was administered without complication. Automated exposure control w as utilized for the study. A dose lowering technique was utilized adhering to the principles of ALAR Berna. CT DOSE: 2657.84 mGy.cm FINDINGS: Body wall edema is present. Please note that the chest CT will be reported separately. Bila teral pleural effusions, right larger left, are better depicted on that exam. No pneumatosis, free ai r or portal venous gas is present. Fat-containing right hepatic lobe lesion is benign. There is no si gnificant biliary ductal dilatation status post cholecystectomy. Trace infrahepatic fluid is noted. T here is no evidence for a bowel obstruction. The caliber and wall thickness of small and large bowel are normal. Water attenuation bilateral renal lesions represent cysts. Numerous subcentimeter renal l esions are too small to characterize. There is moderate left renal scarring. There is no hydronephros is. No fluid collections are identified. The bladder is moderately distended. Please note that the [facility] spine CT will be reported separately. No acute fractures are identified. There is severe multile mariann degenerative changes within the lumbar spine. IMPRESSION: 1. No bowel obstruction. No bowel wall thickening. 2. Bilateral pleural effusions right larger than left. Trace ascites. Body wall edema. 3. No lumbar spine fractures. Severe multilevel degenerative changes within the lumbar spine. Please see the lumbar spine report for further description. ACT 112: Negative or not required by law. Electronically signed by: Misha Wilkinson M.D. 01/30/2024 4:17 PM
[2024-01-30] MEDS: HYDROmorphone INJ 0.5 MG/0.5 ML SYR IV STA (16:21)
[2024-01-30] MEDS: ACETAMINOPHEN 1,000 MG/100 ML VIAL IV STA (16:22)
--- NOTE | 2024-01-30 16:23 | CT Scan Report ---
CT angio chest PE protocol HISTORY: 78 years-old Female with PE, recent surgery, SOB, back pain. Acute shortness of breath wit h back pain TECHNIQUE: Multiple CTA images of the chest were obtained after the intravenous administration of 118 ml Optiray. Coronal and sagittal MIPS were obtained from the axial data set and were submitted for review. All measurements were obtained according to NASCET criteria. A dose lowering technique was u tilized adhering to the principles of ALARA. COMPARISON: CT abdomen and pelvis of same day, CT chest 01/06/2024 FINDINGS: CTA: Heart is upper limits of normal in size. No pericardial effusion. Moderate coronary artery calcificat ions. Atherosclerosis of aorta without aneurysm. No central pulmonary emboli identified. Suboptimal v isualization of the subsegmental branches. A right-sided PICC distal tip terminates within the superi or cavoatrial junction. CT CHEST: Subcentimeter hypodense thyroid nodules. Borderline enlarged mediastinal and hilar lymph nodes are li ameya physiologic. Small left and moderate right pleural effusions with dependent bibasilar consolidat ion suggestive of atelectasis. Mild intralobular septal thickening. No suspicious pulmonary nodules. Central airways are patent. CT abdomen and pelvis is dictated separately. Mild generalized body wall edema. Degenerative changes of the shoulders and spine. Probable cysts of the superior pole left kidn ey. IMPRESSION: 1. No pulmonary emboli identified. 2. Cardiomegaly with probable mild interstitial pulmonary edema. 3. Small left and moderate right pleural effusions with bibasilar dependent atelectasis. 4. Please refer to the same day CT abdomen and pelvis study for additional findings. ACT 112: Negative or not required by law. The above report was generated using voice recognition software. It may contain grammatical, syntax o r spelling errors. Electronically signed by: Gustavo Charles M.D. 01/30/2024 4:22 PM
--- NOTE | 2024-01-30 16:26 | CT Scan Report ---
CT lumbar spine w con CLINICAL HISTORY: lower back pain COMPARISON STUDY: Lumbar spine CT April 20, 2021. Lumbar spine MRI January 06, 2024. TECHNIQUE: Axial images of the lumbar spine were obtained following intravenous menstruation 118 cc o f Optiray 320 IV. Sagittal and coronal reconstructions were viewed. Automated exposure control was ut ilized for the study. A dose lowering technique was utilized adhering to the principles of ALARA. FINDINGS: For purposes of numbering on this exam, the L5-S1 disc space is assigned to axial image 245 of 368. Vertebral body heights are maintained. No lumbar spine fractures are identified. There is se bruce multilevel facet arthrosis and moderate to severe multilevel disc space narrowing with endplate osteophytosis. Evaluation of the central canal and neural foramen is significant, given artifact and CT technique. Paravertebral soft tissues are unremarkable by CT. No suspicious osseous lesions are pr esent. Multilevel endplate irregularity is likely degenerative. There is vacuum disc phenomenon at th e L3-L4, L4-L5 and L5-S1 levels. Slight anterolisthesis of L3 on L4 and L4 and L5 is unchanged from e arlier exam. Please note that the abdomen and pelvis CT will be reported separately. IMPRESSION: 1. No lumbar spine fractures. 2. Severe multilevel degenerative disc disease and facet arthrosis within the lumbar spine. 3. Suboptimal evaluation of the central canal given CT technique and artifact. If concern for epidura l process, MRI is recommended. ACT 112: Negative or not required by law. Electronically signed by: Misha Wilkinson M.D. 01/30/2024 4:25 PM
[2024-01-30] MEDS ORDERED: VANCOMYCIN CONSULT ACTIVE PRN (17:27)
--- NOTE | 2024-01-30 17:27 | History & Physical Report ---
Date of Service January 30, 2024 Assessment & Plan (1) Acute back pain: (2) Hypertension: (3) Diabetes: (4) Hyperlipidemia: (5) Morbid obesity: (6) (HFpEF) heart failure with preserved ejection fraction: (7) Epidural abscess: (8) Anemia: Plan Ms. Escobar s a 78 year old female that presented to the ED today from [facility] re[facility] for further evaluation of her anemia. Her Hgb was low 7.2- 8.2. She was recently admitted to [facility] from 01/06/24 - 01/11/24 and was found to have sepsis/bacteremia and was transferred on 01/10 to [facility] where she underwent C2-C6 debridement under the care of Dr. No with neurosurgery. Cultures grew MRSA; was started on Vancomycin per ID which is to continue @ 750 mg IV daily until 02/21. She has a planned Neurosurgery f/u at [facility] on 02/11. She also has chronic lower back pain and has been complaining of worsening back pain with a mbulation and working with PT. She describes the pain as sharp pain with muscle spasms. She was having episodes of lower extremity neuropathic pain. Today, a lumbar spine CT was performed results indicating severe multilevel degenerative disc disease and facet arthrosis within the lumbar spine. Suboptimal evaluation of the central canal given CT technique and artifact. If concern for epidural process, MRI is recommended. She has a complex PMH that includes:type 2 diabetes, hyperlipidemia, gout, renal artery stenosis, hypertension, chronic diastolic HFpEF, CKD stage III, GERD, morbid obesity, primary open angle glaucoma right eye moderate stage, history of MRSA infection, spinal stenosis, history of intraductal papilloma of breast, and ATILIO. She has been bedbound since 01/06/24. All PT/OT has gotten her up to ambulate, but she can not get up without assistance and she is developing a pressure ulcer from being sedentary. The abscess was pushing against her spinal cord and she has been using supplemental O2 since 01/05. Patient will be admitted for further management of her HFpEF and back pain. HFpEF: HTN: Chronic Takes Lasix 60 mg daily; this has been on hold due to renal function Not sure that patient has known documented CHF 01/09/24 DUANE: No evidence of a valvular vegetation. Small, incidental PFO noted. EF 55-60%. Lasix 60 mg daily; continue daily and monitor creatinine closely indwelling tubbs insertion with I/O Takes Clonidine, Coreg and Imdur; continue Cardiology consult placed Back pain: Acute sciatica improved with IV Dilaudid in ED; lumbar spine CT: No acute fractures. Severe multilevel degenerative disc disease and facet arthrosis within the lumbar spine. Suboptimal evaluation of the central canal given CT technique and artifact. If concern for epidural process, MRI is recommended. Takes gabapentin; continue Ortho consult placed; likely require lumbar MRI, but want to stabilize otherwise and obtain while admitted here. PT/OT ordered Anemia: Acute Hgb ranges 7.2-8.2 today 01/18/24 B12 and Folate obtained and normal No active signs of bleeding Will obtain complete anemia panel T/C done and blood consent signed CBC at 0000 Epidural Abscess: Acute Recent transfer on 01/10 to [facility] where she underwent C2-C6 debridement under the care of Dr. No with neurosurgery Cultures grew MRSA; was started on Vancomycin per ID which is to continue @ 750 mg IV daily until 02/21. Last Vanco level drawn yesterday; discussed with pharmacy Neurosurgery f/u at [facility] on 02/11 Atrial fibrillation: No prior history of AF. Continue ASA Metoprolol transitioned to Coreg during last admission, currently 25mg BID; continue Disposition: PCP: Dr. Clarke Code Status: Full VTE Prophylaxis: Heparin SQ I spent a total of 87 minutes coordinating, documenting, and providing care for this patient excluding time spent in the performance of separately billed services. All of the aforementioned completed while collaborating with the assigned attending physician for a full treatment plan. Please see their addendum for further details. History of Present Illness Chief Complaint: back pain/hypoxia Primary Care Provider: Nessa Foreman MD Ms. Escobar s a 78 year old female that presented to the ED today from [facility] rehab for further evaluation of her anemia. Her Hgb was low 7.2- 8.2. She was recently admitted to [facility] from 01/06/24 - 01/11/24 and was found to have sepsis/bacteremia and was transferred on 01/10 to [facility] where she underwent C2-C6 debridement under the care of Dr. No with neurosurgery. Cultures grew MRSA; was started on Vancomycin per ID which is to continue @ 750 mg IV daily until 02/21. She has a planned Neurosurgery f/u at [facility] on 02/11. She also has chronic lower back pain and has been complaining of worsening back pain with ambulation and working with PT. She describes the pain as sharp pain with muscle spasms. She was having episodes of lower extremity neuropathic pain. Today, a lumbar spine CT was performed results indicating severe multilevel degenerative disc disease and facet arthrosis within the lumbar spine. Suboptimal evaluation of the central canal given CT technique and artifact. If concern for epidural process, MRI is recommended. She has a complex PMH that includes:type 2 diabetes, hyperlipidemia, gout, renal artery stenosis, hypertension, chronic diastolic HFpEF, CKD stage III, GERD, morbid obesity, primary open angle glaucoma right eye moderate stage, history of MRSA infection, spinal stenosis, history of intraductal papilloma of breast, and ATILIO. She has been bedbound since 01/06/24. All PT/OT has gotten her up to ambulate, but she can not get up without assistance and she is developing a pressure ulcer from being sedentary. The abscess was pushing against her spinal cord and she has been using supplemental O2 since 01/05. No leukocytosis, Hgb 8.2, creatinine 1.23; otherwise labs unremarkable. Pt denies fever, chills, SAINI, dizziness, SOB, chest pain, palpitations, N/V/D, hematochezia, black stools, recent falls or trauma. Patient will be admitted for further evaluation and management. Please see A/P for further details. Allergies Allergy/AdvReac Type Severity Reaction Status Date / Time allopurinol Allergy Mild RASH Verified 10/01/19 09:44 Penicillins Allergy Mild HIVES Verified 10/01/19 09:44 Bactrim Allergy Unknown ANXIETY Verified 09/26/17 08:37 AND HALLUCINATION sulfamethoxazole AdvReac Intermediate ANXIETY Verified 03/23/21 20:14 AND HALLUCINATION trimethoprim AdvReac Intermediate ANXIETY Verified 03/23/21 20:14 AND HALLUCINATION Home Medications Medication Instructions Recorded Confirmed Type aspirin 81 mg tablet,delayed 81 mg PO DAILY 01/06/24 01/30/24 History release atorvastatin 20 mg tablet 20 mg PO DAILY 01/06/24 01/30/24 History calcitriol 0.25 mcg capsule 0.25 mcg PO UD 01/06/24 01/30/24 History fluticasone propionate 50 1 spray intranasal DAILY 01/06/24 01/30/24 History mcg/actuation nasal spray,suspension lorazepam 0.5 mg tablet 0.5 mg PO TID PRN Anxiety 01/06/24 01/30/24 History semaglutide 1 mg/dose (4 mg/3 mL) 1 mg subcut WK 01/06/24 01/30/24 History subcutaneous pen injector (Ozempic) furosemide 20 mg tablet 60 mg PO DAILY 01/07/24 01/30/24 History losartan 100 mg tablet 100 mg PO DAILY 01/07/24 01/30/24 History omeprazole 20 mg capsule,delayed 20 mg PO DAILY 01/07/24 01/30/24 History release Vancomycin Consult Active [Consult] 1 ea Not Applicable UD PRN ##0 01/11/24 01/30/24 Rx acetaminophen 500 mg tablet 1,000 mg (2 x 500 mg) PO TID #0 01/11/24 01/30/24 Rx (Tylenol Extra Strength) tabs amlodipine 5 mg tablet 10 mg (2 x 5 mg) PO DAILY #0 tabs 01/11/24 01/30/24 Rx carvedilol 25 mg tablet 25 mg PO BIDM #0 tabs 01/11/24 01/30/24 Rx clonidine HCl 0.1 mg tablet 0.1 mg PO BID #0 tabs 01/11/24 01/30/24 Rx clonidine HCl 0.1 mg tablet 0.1 mg PO Q8H PRN #0 tabs 01/11/24 01/30/24 Rx gabapentin 400 mg capsule 400 mg PO BID #0 caps 01/11/24 01/30/24 Rx heparin, porcine (PF) 5,000 5,000 unit (0.5 mL) subcut Q8 #0 mL 01/11/24 01/30/24 Rx unit/0.5 mL injection syringe isosorbide mononitrate 30 mg 30 mg PO QAM #0 tabs 01/11/24 01/30/24 Rx tablet,extended release 24 hr tramadol 50 mg tablet 50 mg PO Q8H PRN Severe Pain 01/11/24 01/30/24 Rx (Scale Score 7-10) #0 tabs Past Med/Surg History Problem List (Updated 01/30/24 @ 19:31 by SHAI Johnson) Anemia Epidural abscess (HFpEF) heart failure with preserved ejection fraction Morbid obesity Hypertensive urgency Bacterial meningitis Delirium due to another medical condition Acute metabolic encephalopathy Acute left-sided weakness Stroke determined by clinical assessment Altered mental status Uncontrolled hypertension Spinal stenosis excluding cervical region Bacteremia due to Staphylococcus Severe sepsis with acute organ dysfunction Acute back pain Hypomagnesemia (Acute) CAP (community acquired pneumonia) (Acute) Atrial fibrillation with rapid ventricular response (Acute) Sepsis (Acute) Degenerative arthritis of knee, bilateral Hypertension GERD (gastroesophageal reflux disease) Diabetes Hyperlipidemia MRSA infection Encounter for pre-operative examination Medical History Demand ischemia of myocardium Paroxysmal atrial fibrillation with rapid ventricular response Intraductal papilloma of breast left Morbid obesity Renal artery stenosis status post bilateral renal artery stenting Cancer uterine s/p hysterectomy (no chemo/XRT) Chronic back pain Gout Chronic kidney disease stage III (follows with Dr. Okeefe) GERD (gastroesophageal reflux disease) controlled Diabetes mellitus, type 2 Hypertension Hyperlipidemia Surgical History History of renal stent RIGHT/LEFT History of cataract surgery R/L History of hysterectomy TOTAL History of bilateral tubal ligation History of dilatation and curettage X 2 History of hand surgery RIGHT CYST History of cholecystectomy Fusion of spine LUMBAR Family History Brother Family history of diabetes mellitus Mother Family hx of colon cancer Social History Smoking Status: Never smoker Second Hand Exposure: Yes (SPOUSE SMOKES); Do You Dip or Chew Tobacco: No; Hx Alcohol Use: No Hx Substance Use: No Preferred Language: Puerto Rican Communication Ability: Effective Acute Care Physical Therapist Required: No Beliefs That Will Affect Care: None Current Living Situation: Spouse Feels Safe at Home: Yes Assistive Devices: Cane and Walker Review of Systems Review of Systems: Neuro: (-) Falls, trauma, slurred speech HEENT: (-) SAINI, dizziness, dysphagia, visual or auditory changes CV: (-) CP, palpitations, swelling Resp: (-) SOB GI: (-) appetite changes, N/V/D, bowel changes : (-) urinary changes Skin: (-) rashes Psych: (-) anxiety, depression Physical Exam Physical Exam: See Dr. Winn's addendum for physical examination findings Results & Data Results & Data Vital Signs (Past 12 Hours) Vital Signs Temp Pulse Pulse Resp BP BP Pulse Ox 01/30/24 15:00 84 18 156/63 H 93 01/30/24 14:09 98 01/30/24 13:10 76 20 144/62 H 93 01/30/24 13:10 36.6 C 76 20 144/62 H 93 O2 Del Method O2 Flow Rate 01/30/24 15:00 Nasal Cannula 2 01/30/24 14:09 Nasal Cannula 2 01/30/24 13:10 Nasal Cannula 2 01/30/24 13:10 Nasal Cannula 2 Laboratory Results Short CBC 01/30/24 Range/Units 13:08 WBC 10.85 H (4.8-10.8) K/ul Hgb 8.2 L (12.0-16.0) g/dl Hct 25.5 L (37.0-47.0) % Plt Count 449 H (130-400) K/uL BMP 01/30/24 13:08 Sodium 138 Potassium 4.3 Chloride 108 H Carbon Dioxide 22 BUN 27 H Creatinine 1.23 H Glucose 120 H Calcium 8.5 L Liver Function 01/30/24 Range/Units 13:08 Total Bilirubin 0.6 (0.2-1.0) mg/dl AST 15 (13-39) U/L ALT 14 (7-52) U/L Alkaline Phosphatase 63 (34-104) U/L Albumin 2.3 L (3.4-5.0) gm/dl Diagnostic Findings Abdomen/Pelvis CT 01/30/24 14:23 CT OF THE ABDOMEN AND PELVIS WITH CONTRAST CLINICAL HISTORY: Abdominal and back pain. Recent surgery. COMPARISON STUDY: CT of the abdomen and pelvis January 06, 2024. TECHNIQUE: Following IV administration of 118 mL of Optiray, axial images of the abdomen and pelvis were obtained from the lung bases to the proximal femurs. Images were reviewed in the axial, sagittal, and coronal planes. IV contrast was administered without complication. Automated exposure control was utilized for the study. A dose lowering technique was utilized adhering to the principles of ALARA. CT DOSE: 2657.84 mGy.cm FINDINGS: Body wall edema is present. Please note that the chest CT will be reported separately. Bilateral pleural effusions, right larger left, are better depicted on that exam. No pneumatosis, free air or portal venous gas is present. Fat-containing right hepatic lobe lesion is benign. There is no significant biliary ductal dilatation status post cholecystectomy. Trace infrahepatic fluid is noted. There is no evidence for a bowel obstruction. The caliber and wall thickness of small and large bowel are normal. Water attenuation bilateral renal lesions represent cysts. Numerous subcentimeter renal lesions are too small to characterize. There is moderate left renal scarring. There is no hydronephrosis. No fluid collections are identified. The bladder is moderately distended. Please note that the lumbar spine CT will be reported separately. No acute fractures are identified. There is severe multilevel degenerative changes within the lumbar spine. IMPRESSION: 1. No bowel obstruction. No bowel wall thickening. 2. Bilateral pleural effusions right larger than left. Trace ascites. Body wall edema. 3. No lumbar spine fractures. Severe multilevel degenerative changes within the lumbar spine. Please see the lumbar spine report for further description. ACT 112: Negative or not required by law. Electronically signed by: Misha Wilkinson M.D. 01/30/2024 4:17 PM Chest CTA 01/30/24 14:23 CT angio chest PE protocol HISTORY: 78 years-old Female with PE, recent surgery, SOB, back pain. Acute shortness of breath with back pain TECHNIQUE: Multiple CTA images of the chest were obtained after the intravenous administration of 118 ml Optiray. Coronal and sagittal MIPS were obtained from the axial data set and were submitted for review. All measurements were obtained according to NASCET criteria. A dose lowering technique was utilized adhering to the principles of ALARA. COMPARISON: CT abdomen and pelvis of same day, CT chest 01/06/2024 FINDINGS: CTA: Heart is upper limits of normal in size. No pericardial effusion. Moderate coronary artery calcifications. Atherosclerosis of aorta without aneurysm. No central pulmonary emboli identified. Suboptimal visualization of the subsegmental branches. A right-sided PICC distal tip terminates within the superior cavoatrial junction. CT CHEST: Subcentimeter hypodense thyroid nodules. Borderline enlarged mediastinal and hilar lymph nodes are likely physiologic. Small left and moderate right pleural effusions with dependent bibasilar consolidation suggestive of atelectasis. Mild intralobular septal thickening. No suspicious pulmonary nodules. Central airways are patent. CT abdomen and pelvis is dictated separately. Mild generalized body wall edema. Degenerative changes of the shoulders and spine. Probable cysts of the superior pole left kidney. IMPRESSION: 1. No pulmonary emboli identified. 2. Cardiomegaly with probable mild interstitial pulmonary edema. 3. Small left and moderate right pleural effusions with bibasilar dependent atelectasis. 4. Please refer to the same day CT abdomen and pelvis study for additional findings. ACT 112: Negative or not required by law. The above report was generated using voice recognition software. It may contain grammatical, syntax or spelling errors. Electronically signed by: Gustavo Charles M.D. 01/30/2024 4:[address] 01/30/24 14:23 CT lumbar spine w con CLINICAL HISTORY: lower back pain COMPARISON STUDY: Lumbar spine CT April 20, 2021. Lumbar spine MRI January 06, 2024. TECHNIQUE: Axial images of the lumbar spine were obtained following intravenous menstruation 118 cc of Optiray 320 IV. Sagittal and coronal reconstructions were viewed. Automated exposure control was utilized for the study. A dose lowering technique was utilized adhering to the principles of ALARA. FINDINGS: For purposes of numbering on this exam, the L5-S1 disc space is assigned to axial image 245 of 368. Vertebral body heights are maintained. No lumbar spine fractures are identified. There is severe multilevel facet arthrosis and moderate to severe multilevel disc space narrowing with endplate osteophytosis. Evaluation of the central canal and neural foramen is significant, given artifact and CT technique. Paravertebral soft tissues are unremarkable by CT. No suspicious osseous lesions are present. Multilevel endplate irregularity is likely degenerative. There is vacuum disc phenomenon at the L3-L4, L4-L5 and L5-S1 levels. Slight anterolisthesis of L3 on L4 and L4 and L5 is unchanged from earlier exam. Please note that the abdomen and pelvis CT will be reported separately. IMPRESSION: 1. No lumbar spine fractures. 2. Severe multilevel degenerative disc disease and facet arthrosis within the lumbar spine. 3. Suboptimal evaluation of the central canal given CT technique and artifact. If concern for epidural process, MRI is recommended. ACT 112: Negative or not required by law. Electronically signed by: Misha Wilkinson M.D. 01/30/2024 4:25 PM Code Status & VTE Plan Code Status Full Code in the event of cardiac or respiratory arrest VTE Prophylaxis Plan VTE Prophylaxis will be ordered: Yes Supervising Physician Co-Signing Physician Notes Patient is a 78-year-old female with history of diabetes mellitus, morbid obesity, hypertension, spinal stenosis, A-fib, CKD stage III, diastolic heart failure, renal artery stenosis and other medical problems who was recently admitted at [facility] and was treated for MRSA bacteremia, bacterial meningitis and later transferred to [facility] for management of large epidural abscess. At [facility] patient underwent C2-C6 debridement by Dr. No and patient grew MRSA and was started on IV vancomycin as recommended by ID. During hospitalization at [facility], patient also had worsening renal function and she was held on losartan, meloxicam and furosemide and her metoprolol was changed to Coreg. She was also started on Imdur, clonidine at the time and later discharged to assisted facility. Patient states that her lower back pain has been worsening while having PT while at assisted facility. She also states that since recent hospitalization, patient had left lower extremity weakness and mostly bedbound. Patient is a poor historian and most of the history is obtained from patient's family at bedside. She denied any chest pain, shortness of breath but has been requiring supplemental oxygen to maintain saturations lately. Please review HPI for complete details of presentation. I personally reviewed blood work and imaging studies. Blood work showed leukocytosis 10.8 5K, hemoglobin 8.2, platelet count 449K, chloride 108, BUN 27, creatinine 1.23, glucose 120, calcium 8.5. Chest CTA showed bilateral pleural effusion right greater than left, atelectasis, no PE. Lumbar CT showed severe multilevel degenerative disc disease and arthrosis. Physical Exam: Vitals signs as noted above General Appearance:Morbidly Obese, no apparent distress Head: normocephalic, Atraumatic Eyes: normal inspection, EOMI Neck: supple, Trachea midline, + thanh on posterior neck Respiratory/Chest: Decreased breath sounds, CTA, No accessory muscle use Cardiovascular: S1, S2, No murmur Abdomen/GI:Soft, Non tender, Bowel sounds present Extremities/Musculoskeletal:normal inspection, 2+ edema Neurologic/Psych:AAOX3, left lower extremity 2/5 otherwise grossly no focal neurological deficits Skin: normal color, warm Acute on chronic HFpEF Lumbago Ambulatory dysfunction Normocytic anemia Epidural abscess Morbid obesity Agree with IV Lasix, I's and O's, daily weight Monitor renal function and avoid nephrotoxic agents as able Cardiology consulted Ortho spine consulted, consider MRI spine Pain control Fall precautions PT OT Anemia panel ordered Continue IV vancomycin for epidural abscess Urinalysis pending I personally interviewed and examined at bedside. Patient's care is coordinated with Nilam GIBBONS. I have reviewed the advanced practitioner's documentation, and I agree with plan of care. Please refer to the documentation above for details of patient's presentation and for discussion of other issues. I spent a total [id number] coordinating, documenting, and providing care for this patient excluding time spent in the performance of separately billed services. (2) Hypertension Hypertension type: renovascular hypertension Qualified Code(s): I15.0 - Renovascular hypertension
[2024-01-30] MEDS ORDERED: FUROSEMIDE 40 MG/4 ML VIAL IV SCH (18:15)
[2024-01-30 18:41] LABS: Ferritin 494.7 ng/ml (8-388)
[2024-01-30] MEDS: FUROSEMIDE 40 MG/4 ML VIAL IV STA (18:50)
[2024-01-30] MEDS: GABAPENTIN 400 MG CAP PO SCH (20:51)
[2024-01-30] MEDS: CALCITRIOL 0.25 MCG CAPSULE PO SCH (20:51)
[2024-01-30] MEDS ORDERED: VANCOMYCIN HCL 750 MG in SODIUM CHLORIDE 0.9% 500 ML IV SCH (21:00)
[2024-01-30] MEDS: HEPARIN SOD 5,000 UNIT/0.5 ML VIAL SQ SCH (23:09)
[2024-01-31] MEDS: ACETAMINOPHEN 325 MG TAB PO PRN (00:23)
[2024-01-31] MEDS: LORazepam 0.5 MG TAB PO PRN (00:23)
[2024-01-31 00:37] LABS: Hematocrit (blood only) 23.5 % (37.0-47.0); Hemoglobin 7.7 g/dl (12.0-16.0); Mean Corpuscular Hemoglobin 30.7 pg (25.0-34.0); Mean Corpuscular Hgb Conc 32.8 g/dL (32.0-36.0); Mean Corpuscular Volume 93.6 fL (80.0-100.0); Mean Platelet Volume 8.6 fL (9.4-12.4); Platelet Count 423 K/uL (130-400); RDW Coefficient of Variation 13.2 % (11.5-14.5); RDW Standard Deviation 44.9 fL (36.4-46.3); Red Blood Count 2.51 M/uL (4.20-5.40); White Blood Count 9.83 K/ul (4.8-10.8)
--- OUTSIDE RECORDS SUMMARY | 2024-01-31 04:22 | External Medical Summary | Summary of Care ---
Author Name Unknown Organization [facility] Address [address] [place] [address] Phone [phone] Care Team Providers Care Communication Lecturer Name Role Phone Nessa Foreman MD Primary Care Provider + Reason for Visit * Reason Onset Date Comments Appointment Canceled 01/27/2024 Appointment 01/27/2024 Encounter Details Date Type Department Care Team (Late st Contact Info) Description 01/27/2024 Telephone Vascular Surgery, [facility] [address] [facility] [place] [place] [address] Omer Head PA-C [address] [place] [address] Appointment Canceled; Appointment Allergies Active Allergy Reactions Criticality Noted Date Comments Allopurinol Low 01/20/2007 Rash Sulfamethoxazole-Trimet hoprim 10/06/2015 Hallucinations, anxiety Metformin Diarrhea,Edema Other 09/06/2023 Penicillins 12/24/2000 hives documented as of this encounter (statuses as of 01/29/2024) Medications Medication Sig Dispensed Refills Start Date End Date Status VITAMIN D 2000 UNITS PO CAPS Take 1 Capsule by mouth in the morning. 30 Cap 5 11/29/2011 Active ASPIRIN EC 81 MG PO TBEC Take 1 Tablet by mouth daily. Active Blood Glucose Monitoring Suppl (ONETOUCH ULTRA SYSTEM) W/DEVICE KITIndications:DM type 2, goal A1c below 7 Use up to four times a day as directed/E11.9 1 Kit 0 02/04/2015 Active PathbriteTOUCH DELICA LANCETS 33G MISCIndications:Ty pe 2 diabetes mellitus with hemoglobin A1c goal of less than 7.0% ([facility]) Test up to twice daily DX E 11.9 100 Each 5 09/16/2018 Active Acetaminophen 500 MG Oral Tablet Take 1 Tablet by mouth every 6 hours as needed for Pain. 2 tabs as needed Active Omeprazole 20 MG Oral Capsule Delayed Release (PriLOSEC)Indicati ons:Gastroesophage al reflux disease without esophagitis TAKE 1 CAPSULE BY MOUTH ONCE DAILY ONE HOUR BEFORE THE FIRST MEAL OF THE DAY 90 Capsule 1 10/10/2021 Active 6th Sense AnalyticsTouch Ultra In Vitro Strip (Glucose Blood)Indications: Type 2 diabetes mellitus with hemoglobin A1c goal of less than 7.0% ([facility]) USE 1 STRIP TO CHECK GLUCOSE ONCE TO TWICE DAILY DIRECTED 200 Strip 3 01/24/2022 Active 6th Sense AnalyticsTouch Verio w/Device Kit Use as directed . 1 Kit 1 04/18/2022 Active 6th Sense AnalyticsTouch UltraSoft Lancets Use as directed 4 times a day as needed for Hyperglycemia (high sugar). Use up to four times a day as directed 100 Each 3 04/18/2022 Active 6th Sense AnalyticsTouch Verio In Vitro Strip (Glucose Blood) Use up to 4 times a day E11.9 100 Strip 11 05/23/2022 Active Calcitriol 0.25 MCG Oral Capsule (Rocaltrol)Indicat ions:CKD (chronic kidney disease) stage 3, GFR 30-59 ml/min ([facility]) TAKE 1 CAPSULE BY MOUTH ONCE DAILY ON SATURDAY AMD SATURDAY ONLY 24 Capsule 3 03/22/2023 Active Atorvastatin Calcium 20 MG Oral Tablet (Lipitor)Indicatio ns:Dyslipidemia, goal LDL below 100 TAKE 1 TABLET BY MOUTH AT BEDTIME 90 Tablet 3 07/05/2023 Active amLODIPine Besylate 5 MG Oral Tablet (Norvasc) TAKE 1 TABLET BY MOUTH IN THE MORNING 90 Tablet 1 07/06/2023 Active Ozempic (1 MG/DOSE) 4 MG/3ML Subcutaneous [...] Tablet 10/23/2023 Active Colchicine 0.6 MG Oral TabletIndications: Gouty arthropathy, chronic, without tophi,Kidney disease, chronic, stage III (GFR 30-59 ml/min) ([facility]) TAKE 1 TABLET BY MOUTH IN THE MORNING NEEDED FOR GOUT 30 Tablet 11/07/2023 Active Loratadine 10 MG Oral Tablet (Claritin)Indicati ons:Acute non-recurrent frontal sinusitis,Vertigo Take 1 Tablet by mouth in the morning. 20 Tablet 11/10/2023 Active Fluticasone Propionate 50 MCG/ACT Nasal Suspension (Flonase)Indicatio ns:Acute non-recurrent frontal sinusitis,Vertigo Administer 2 Sprays into each nostril in the morning. 9.9 mL 11/10/2023 Active Triamcinolone Acetonide 0.025 % External Ointment (Aristocort)Indica tions:Contact dermatitis USE SPARINGLY NIGHTLY FOR TWO WEEKS, THEN NEEDED. LITTLE IS EFFECTIVE 60 g 3 12/06/2023 Active Gabapentin 400 MG Oral Capsule (Neurontin)Indicat [...] for Pain, Severe. 14 Tablet 12/24/2023 Active Isosorbide Mononitrate ER 30 MG Oral Tablet Extended Release 24 Hour (Imdur) Take 1 Tablet by mouth in the morning. 30 Tablet 2 01/21/2024 Active Carvedilol 25 MG Oral Tablet (Coreg) Take 1 Tablet by mouth 2 times a day with morning and evening meals. 60 Tablet 2 01/20/2024 Active cloNIDine HCl 0.1 MG Oral Tablet (Catapres) Take 1 Tablet by mouth in the morning and 1 Tablet before bedtime. 30 Tablet 2 01/20/2024 Active vancomycin IV IV (AMBULATORY) Administer 750 mg intravenously daily. Adjust the regimen as appropriate to achieve therapeutic Goals: AUC 400-600 preferred. Vancomycin trough 15-20 acceptable if unable to monitor AUC. 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 Type 2 diabetes mellitus wit h hemoglobin A1c goal of less than 7.0% Overview: ICD-10 update of inactive term documented as of this encounter (statuses as of 01/29/2024) Resolved Problems Problem Noted Date Diagnosed Date Resolved Date Constipation 01/19/2024 01/20/2024 ZOILA (acute kidney injury) 01/16/2024 MRSA bacteremia 01/12/2024 01/20/2024 Bacterial meningitis 01/12/2024 024 Epidural abscess 01/12/2024 01/20/2024 Cord compression 01/12/2024 01/20/2024 Bacterial sepsis 01/12/2024 01/20/2024 Endometrial cancer 07/19/2022 Cancer Staging:Pathologic stage from 11/27/2016:FIGO Stage IA(pT1a, pN0, cM0) - Signed by Ronald Oliver MD on 07/20/2022 Overview: History 12/19/20 CONFIGURATION MANAGEMENT ADMINISTRATOR/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 [employer] Other*[id number] 06/19/2010 05/29/2016 Overview: Study Titile: Genomics Markers for Patients with Cardiovascular Disease Project # [id number] PI: Tara Purcell MD Please call [phone] with study related questions Spinal stenosis of lumbar re gion without neurogenic claudication 01/11/2010 01/20/2024 Hand Dermatitis 09/24/2007 01/10/2017 Gout 09/09/2006 10/17/2009 Dermatitis 02/07/2005 09/24/2007 Dyslipidemia, goal to be determined 05/08/2004 04/06/2009 Overview: Per Lipid Taxonomy. Vascular complications of renal artery 06/25/2002 01/10/2017 Uncontrolled hypertension documented as of this encounter (statuses as of 01/29/2024) Immunizations Name Administration Dates Next Due COVID-19 [...] Adjuvanted, 65+ Yrs, IM (FLUAD) 02/24/2020 Seasonal Influenza Vac., MDV , IM, 0.5 mL (Fluzone) 04/28/2014,01/27/2013,02/19/2012,01/03,01/11/2010,02/27/2008,02/17/2007 ,02/22/2006,02/12/2005,02/01/2003,01/21 Seasonal Influenza, PF, 6 M & above, IM , (FluLaval or Fluzone) 01/13/2019,02/10/2018,01/10/2017 Seasonal Influenza, Quadriva lent Hd (Fluzone Hd) 01/29/2023,03/08/2022,02/15/2021 Seasonal Influenza, Quadriva lent, No Preserve, IM 02/09/2016,01/22/2015 Seasonal Influenza, Trivalen t, (IIV3), PF, (Fluzone) 01/04/2009 TD, Preservative Free 02/10/2018 TDAP, Age 7 [...] on file documented as of this encounter Functional Status Functional Status Response Date of Assess ment Are you deaf or do you have serious difficulty h earing? No 01/12/2024 Are you blind or do you have serious difficulty seeing, even when wearing glasses? No 01/12/2024 Do you have serious difficul ty walking or climbing stairs? (5 years old or older) No 01/13/2024 Do you have difficulty dress ing or bathing? (5 years old or older) No 01/12/2024 Because of a physical, menta l, or emotional condition, do you have difficulty doing errands alone such as visiting a doctor s office or shopping? (15 years old or older) No 01/12/20 Cognitive Status Response Date of Assessm ent Because of a physical, menta l, or emotional condition, do you have serious difficulty concentrating, remembering, or making decisions? (5 years old or older) No 01/12/2024 documented as of this encounter Miscellaneous Notes * Telephone Encounter - Bobbi Osorio LPN - 01/29/2024 10:58 AM EDT Pt is on recall Bobbi Osorio LPN 01/29/2024 10:58 AM * Telephone Encounter - Omer Head PA-C - 01/28/2024 4:54 PM EDT Noted thank you. Can we put her on the recall list, so she doesn't get lost to follow up? Recall for 3 months * Telephone Encounter - Johanna Garcia OSA - 01/28/2024 8:54 AM EDT Pt , Juvenal, calling in on behalf of the pt. Pt needs to cancel her appt with Dr. Frost and the US for right now as the pt is in a facility and unable to get her to the appt. Will call to reschedule when able. * Telephone Encounter - Bobbi Osorio LPN - 01/28/2024 8:24 AM EDT Attempted to contact patient to reschedule study before office visit. Left message to return phone call Bobbi Osorio LPN 01/28/2024 8:24 AM * Telephone Encounter - Omer Head PA-C - 01/27/2024 4:46 PM EDT Pt cancelled today's renal duplex, due to illness. She has 02/05/24 appointment @ [facility] Can we re-schedule duplex or duplex & visit? Thank you Omer documented in this encounter Plan of Treatment Upcoming Encounters Date Type Department Care Team (Late st Contact Info) Description 02/12/2024 3:00 PM EDT Office Visit [facility], [place] [address] [place] [address] Magan No MD [address] [place] [facility] [place] [address] 02/18/2024 3:00 PM EDT Office Visit General Internal Medicine State Ahsan Armstrong [address] [place] [address] Nessa Foreman MD [address] [place] [address] Scheduled Procedures Name Priority Associated Diagnoses Date/Ti me COLONOSCOPY FLEXIBLE PROXIMA L DIAGNOSTIC Recall Encounter [...] 1 05/21/2020, 02/24/2020, Additional history exists GFR 07/19/2024 01/20/2024, 12/22, 01/19/2024, Additional history exists Albumin/Creatinine Ratio 11/24/2024 024, 11/14/2022, 11/23/2021, Additional history exists CKD PHOS USE SMARTSET 46601 11/24/2024 08/0 08/2023, 07/17/2023, 07/11/2022, Additional history exists CKD HGB USE SMARTSET 56605 01/19/202501/19, 01/19/2024, 01/18/2024, Additional history exists DTap/Tdap Vaccines (3 - [...] this encounter Medical Devices Implanted Type Area Cst Device Identifier Shelf Expiration Date Model / Serial / Lot Stent [id number] Frank [id number] - [id number] [place]ed:Q[place] 1 [place]29[place] [facility] [place]: Renal Artery JNJ : CORDIS ENDOVASCULAR 07/21/2012 [id number] / / [id number] Lens Intraoc 18.5 - [id number] - [id number] Implanted:Qty: 1 on 10/16/2018 by Jhonny Stanton MD at OR [facility] Left: Eye BAUSCH & LOMB 02/19/2023 [id number] / [id number] / [id number] Lens Intraoc 18.0 - [id number] - [id number] Implanted:Qty: 1 on 10/28/2018 by Jhonny Stanton MD at OR [facility] Right: Eye BAUSCH & LOMB 11/19/2022 [id number] / [id number] / documented as of this encounter Additional Health Concerns Infection Onset Date Last Indicated Resolved Time MRSA Comment:+ from [place] [place] 01/12/2024 01/12/2024 documented as of this encounter Advance Directives * Full Code (Latest Code Status on File) Date Activated Date Inactivated Comments 01/12/2024 3:26 AM 01/20/2024 7:36 PM This order r eflects the patients wishes and were consensually agreed upon. Question Answer Comments Discussion of Advance Directives occurred with: Patient * Full Code Date Activated Date Inactivated Comments 11/27/2016 11:13 [...] Advance Directives occurred with: Patient Care Teams Communication Lecturer Relationship Specialty Start Date End Date Nessa Foreman MD [address] [place] [id number] PCP - General Internal Medicine 05/11/10 documented as of this encounter
--- OUTSIDE RECORDS SUMMARY | 2024-01-31 04:23 | External Medical Summary | Summary of Care ---
Author Name Unknown Organization [facility] Address [address] [place] [address] Phone [phone] Care Team Providers Care Manager Human Resources Name Role Phone Nessa Foreman MD Primary Care Provider + Reason for Visit * Reason Onset Date Comments Follow Up 01/28/2024 Encounter Details Date Type Department Care Team (Late st Contact Info) Description 01/28/2024 Telephone [facility], [place] [address] [place] [address] Tiffanie Hayden RN Follow Up Allergies Active Allergy Reactions Criticality Noted Date [...] 0 02/04/2015 Active ONETOUCH DELICA LANCETS 33G MISCIndications:Ty pe [...] THE DAY 90 Capsule 1 10/10/2021 Active IkonisysToInstantLuxe Ultra In Vitro Strip (Glucose Blood)Indications: Type 2 diabetes mellitus with hemoglobin A1c goal of less than 7.0% (HCC) USE 1 STRIP TO CHECK GLUCOSE ONCE TO TWICE DAILY DIRECTED 200 Strip 3 01/24/2022 Active IkonisysTouch Verio w/Device Kit Use as directed . 1 Kit 1 04/18/2022 Active IkonisysTouch UltraSoft Lancets Use as directed 4 times a day as needed for Hyperglycemia (high sugar). Use up to four times a day as directed 100 Each 3 04/18/2022 Active IkonisysTouch Verio In Vitro Strip (Glucose Blood) Use [...] [facility]) TAKE 1 TABLET BY MOUTH IN THE [...] unable to monitor AUC. 24 g 01/21/2024 4 Active documented as of this encounter (statuses [...] Oliver MD on 07/20/2022 Overview: History 12/19/20 PARARESCUE CRAFTSMAN/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 [employer] Other*[id number] 06/19/2010 05/29/2016 Overview: Study Titile: [employer] Markers for Patients with Cardiovascular Disease Project # [id number] PI: Tara Purcell MD Please call [phone] with study related questions Spinal stenosis of [...] encounter Miscellaneous Notes * Telephone Encounter - Cassidy Chambers OSA - 01/29/2024 8:22 AM EDT Pt is rescheduled for 02/[address] No * Telephone Encounter - Molly Mansfield OSA - 01/28/2024 4:11 PM EDT Davian from the facility stating he had tried to get transportation for the [place] OP offered for PT for tomorrow and unfortunately is is not possible. He can be reached at [phone] At Ext 2212 Davian * Telephone Encounter - Tiffanie Hayden RN - 01/28/2024 10:31 AM EDT Received return call, appt scheduled tomorrow 01/28 with Nba Robledo @ 1 pm. Tiffanie Hayden RN Cerebrovascular Nurse Navigator [facility] * Telephone Encounter - Tiffanie Hayden RN - 01/28/2024 8:04 AM EDT Patient is s/p 01/11 LAMINECTOMY DECOMPRESSION SPINAL CORD POSTERIOR CERVICAL with Dr. No. Called [facility] [phone], [phone], no answer. Provided VM to make aware we were calling to schedule PO appt tomorrow 01/28 @ 1 pm with Nba Robledo PA-C. Provided my direct line for return call. Tiffanie Hayden RN Cerebrovascular Nurse Navigator [facility] documented in this encounter Plan of Treatment Upcoming Encounters Date Type Department Care Team (Late st Contact Info) Description 02/12/2024 3:00 PM EDT Office Visit Neurosurgery, [place] [address] [place] [address] Magan No MD [address] [place] [address] 02/18/2024 3:00 PM EDT Office Visit General Internal Medicine State Ahsan Armstrong [address] [place] [address] Nessa Foreman MD [address] [place] [address] Scheduled Procedures Name Priority Associated Diagnoses Date/Ti [...] Additional history exists CKD PHOS USE SMARTSET 07657 11/24/2024 08/0 08/2023, 07/17/2023, 07/11/2022, Additional history exists CKD HGB USE SMARTSET 40992 01/19/202501/19, 01/19/2024, 01/18/2024, Additional history exists DTap/Tdap [...] this encounter Medical Devices Implanted Type Area Manager Combination Device Identifier Shelf Expiration Date Model / Serial / Lot Stent [id number] Frank [id number] - [id number] Implanted:Qty: 1 on 01/29/2011 [place] [facility] [place]: Renal Artery JNJ : CORDIS ENDOVASCULAR 07/21/2012 [id number] / / [id number] Lens Intraoc 18.5 - [id number] - [id number] Implanted:Qty: 1 on 10/16/2018 by Jhonny Stanton MD at OR [facility] Left: Eye BAUSCH & LOMB 02/19/2023 [id number] / [id number] / [id number] Lens Intraoc 18.0 - [id number] - [id number] Implanted:Qty: 1 on 10/28/2018 by Jhonny Stanton MD at OR [facility] Right: Eye BAUSCH & LOMB 11/19/2022 [id number] / [id number] / documented as of this encounter Additional [...] Directives occurred with: Patient Care Teams Manager Human Resources Relationship Specialty Start Date End Date Nessa Foreman MD [address] [place] [address] PCP - General Internal Medicine 05/11/10 documented as of this encounter
--- OUTSIDE RECORDS SUMMARY | 2024-01-31 04:23 | External Medical Summary | Summary of Care ---
Author Name Unknown Organization [facility] Address [address] [place] [address] Phone [phone] Care Team Providers Care Cigar Head Perforator Name Role Phone Nessa Foreman MD Primary Care Provider + Reason for Visit * Reason Onset Date Comments Follow Up 01/28/2024 Encounter Details Date Type Department Care Team (Late st Contact Info) Description 01/28/2024 Telephone [facility], [place] [address] [place] [address] Tiffanie Hayden RN Follow Up [...] THE DAY 90 Capsule 1 10/10/2021 Active Qubitia SolutionsToVinop[place] Ultra In Vitro Strip (Glucose Blood)Indications: Type 2 diabetes mellitus with hemoglobin A1c goal of less than 7.0% (HCC) USE 1 STRIP TO CHECK GLUCOSE ONCE TO TWICE DAILY DIRECTED 200 Strip 3 01/24/2022 Active Qubitia SolutionsTouch Verio w/Device Kit Use as directed . 1 Kit 1 04/18/2022 Active Qubitia SolutionsTouch UltraSoft Lancets Use as directed 4 times a day as needed for Hyperglycemia (high sugar). Use up to four times a day as directed 100 Each 3 04/18/2022 Active Qubitia SolutionsTouch Verio In Vitro Strip (Glucose Blood) Use up to 4 times a day E11.9 100 Strip 11 05/23/2022 Active Calcitriol 0.25 MCG Oral Capsule (Rocaltrol)Indicat ions:CKD (chronic kidney disease) stage 3, GFR 30-59 ml/min ([facility]) TAKE 1 CAPSULE BY MOUTH ONCE [...] disease, chronic, stage III (GFR 30-59 ml/min) ([facility]) TAKE 1 TABLET BY MOUTH IN [...] Oliver MD on 07/20/2022 Overview: History 12/19/20 BACK PAD INSPECTOR/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 [employer] Other*[id number] 06/19/2010 05/29/2016 Overview: Study Titile: Genomics Markers for Patients with Cardiovascular Disease Project # [id number] PI: Tara Purcell MD Please call [phone] with study related questions Spinal stenosis of [...] not possible. He can be reached at [phone] At Ext 2216 Davian * Telephone Encounter - Tiffanie Hayden RN - 01/28/2024 10:31 AM EDT Received return call, appt scheduled tomorrow 01/28 with Nba Robledo @ 1 pm. Tiffanie Hayden RN Cerebrovascular Nurse Navigator [facility] * Telephone Encounter - Tiffanie Hayden RN - 01/28/2024 8:04 AM EDT Patient is s/p 01/11 LAMINECTOMY DECOMPRESSION SPINAL CORD POSTERIOR CERVICAL with Dr. No. Called [facility] [phone], [phone], no answer. Provided VM to make aware we were calling to schedule PO appt tomorrow 01/28 @ 1 pm with Nba Robledo PA-C. Provided my direct line for return call. Tiffanie Hayden RN Cerebrovascular Nurse Navigator [facility] documented in this encounter Plan of Treatment Upcoming Encounters Date Type Department Care Team (Late st Contact Info) Description 02/12/2024 3:00 PM EDT Office Visit Neurosurgery, [place] [address] [place] [address] Magan No MD [address] [place] [address] 02/18/2024 3:00 PM EDT Office Visit General Internal Medicine State Ahsan Armstrong [address] [place] [address] Nessa Foreman MD [address] [place] [address] Scheduled Procedures Name Priority Associated Diagnoses Date/Ti [...] Additional history exists CKD PHOS USE SMARTSET 89785 11/24/2024 08/0 08/2023, 07/17/2023, 07/11/2022, Additional history exists CKD HGB USE SMARTSET 74401 01/19/202501/19, 01/19/2024, 01/18/2024, Additional history exists DTap/Tdap [...] this encounter Medical Devices Implanted Type Area Instructional Assistant Device Identifier Shelf Expiration Date Model / Serial / Lot Stent [id number] Frank [id number] - [id number] Implanted:Qty: 1 on 01/29/[address] [facility] [place] Right: Renal Artery JNJ : CORDIS ENDOVASCULAR 07/21/2012 [id number] / / [id number] Lens Intraoc 18.5 - [id number] - [id number] Implanted:Qty: 1 on 10/16/2018 by Jhonny Stanton MD at OR [facility] Left: Eye BAUSCH & LOMB 02/19/2023 [id number] / [id number] / [id number] Lens Intraoc 18.0 - [id number] - [id number] Implanted:Qty: 1 on 10/28/2018 by Jhonny Stanton MD at OR [facility] Right: Eye BAUSCH & LOMB 11/19/2022 [id number] / [id number] / documented as of this encounter Additional [...] Advance Directives occurred with: Patient Care Teams Cigar Head Perforator Relationship Specialty Start Date End Date Nessa Foreman MD [address] [facility] [place] [address] PCP - General Internal Medicine 05/11/10 documented as of this encounter
[2024-01-31 06:13] LABS: Hemoglobin 7.3 g/dl (12.0-16.0); Mean Corpuscular Hemoglobin 30.7 pg (25.0-34.0); Mean Corpuscular Hgb Conc 33.2 g/dL (32.0-36.0); Mean Corpuscular Volume 92.4 fL (80.0-100.0); Mean Platelet Volume 8.5 fL (9.4-12.4); Platelet Count 407 K/uL (130-400); RDW Coefficient of Variation 13.2 % (11.5-14.5); RDW Standard Deviation 43.8 fL (36.4-46.3); Red Blood Count 2.38 M/uL (4.20-5.40); White Blood Count 8.92 K/ul (4.8-10.8)
[2024-01-31 06:37] LABS: BUN Creatinine Ratio 21.8 (10-20); Calcium 8.6 mg/dl (8.6-10.3); Magnesium 1.5 mg/dl (1.7-2.4); Phosphorus 3.9 mg/dl (2.5-4.9); Potassium 3.7 mmol/L (3.5-5.1)
[2024-01-31] MEDS: MAGNESIUM SULFATE / D5W 1 GM/100 ML BAG IV SCH (07:51)
[2024-01-31] MEDS: FLUTICASONE PROPIONATE NA SPR 16 GM BTL SCH (09:04)
[2024-01-31] MEDS: PANTOprazole 40 MG TAB PO SCH (09:04)
[2024-01-31] MEDS: ATORVASTATIN 20 MG TAB PO SCH (09:04)
[2024-01-31] MEDS: ISOSORBIDE MONO EXTENDED REL 30 MG TABCR PO SCH (09:04)
[2024-01-31] MEDS: carvediloL 25 MG TAB PO SCH (09:04)
[2024-01-31] MEDS: amLODIPine BESYLATE 5 MG TAB PO SCH (09:04)
[2024-01-31] MEDS: FUROSEMIDE INJ 20 MG/2 ML VIAL IV SCH (09:04)
[2024-01-31] MEDS: ASPIRIN 81 MG ECTAB PO SCH (09:04)
[2024-01-31] MEDS: cloNIDine HCL 0.1 MG TAB PO SCH (09:04)
[2024-01-31] MEDS: VANCOMYCIN HCL 750 MG in SODIUM CHLORIDE 0.9% 250 ML IV SCH (09:49)
[2024-01-31] MEDS: ACETAMINOPHEN 500 MG TAB PO SCH (10:43)
[2024-01-31] MEDS: HYDROmorphone INJ 1 MG/ML SYRINGE IV PRN (11:44)
--- NOTE | 2024-01-31 11:55 | Cardiology Consultation ---
Date of Consultation January 31, 2024 Assessment & Plan (1) (HFpEF) heart failure with preserved ejection fraction: Patient is afebrile and mentating well. Overall, she appears much improved compared to when I had seen her last month. Is noted that at the time of discharge from [facility] on 01/20/2024, hemoglobin was 9.5, with measurement of 8.2 yesterday at 7.3 today. She remains in sinus rhythm on telemetry. For completeness, recommend proceeding with a twelve-lead EKG. Transthoracic echocardiogram and transesophageal echocardiogram revealed preserved ejection fraction in December,, no significant valvular disease noted at the time of the December, DUANE. There was an initial finding of a small PFO. Repeat echocardiogram not felt to be indicated at present. Per review of outpatient chart, historically for recent acute illness the patient had been on a standing dose of 80 mg of furosemide daily. This had been held due to concerns of ZOILA as of recently. Creatinine 1.19 today, was 1.5 at time of chemistry panel [place] [facility] [place]. Agree with plans for IV furosemide, 60 mg IV daily especially given need for ongoing IV antibiotics. Agree with plans for additional imaging of her lumbar spine and for spine surgery consultation. Patient with noted labile hypertension which was acutely worse last admission in the setting of encephalopathy and acute pain. Continue amlodipine, carvedilol, clonidine, isosorbide mononitrate, atorvastatin, and aspirin. History of Present Illness Attending Physician: Autumn Emerson MD History of Present Illness August Shawn is a 78 year old female seen in cardiology consultation per the request of SHAI Moura for the evaluation of Acute heart failure with preserved ejection fraction. Patient with recent hospital stay and December having initially presented on 01/06/2024 with sepsis, MRSA bacteremia. Atrial fibrillation with rapid ventricular response was present in the emergency room at the time of initial presentation the patient subsequently spontaneously converted to sinus rhythm. Transesophageal echocardiogram performed during that hospital stay was negative for vegetation. She was ultimately found to have a cervical epidural abscess and was transferred [place] [facility] [place] she underwent [place]surgery receiving C2-C6 laminectomies for decompression and debridement on 01/12/2024. She was discharged [place] [facility] [place]/20/2024 with plan to complete a course of IV vancomycin. In the meantime she has been recovering at [facility]. Her previous left upper extremity weakness has improved, but she still has residual left lower extremity weakness and states that she has not been able to progress with regards to walking and thus far. She was referred for repeat hospitalization due to multiple concerns including acute on chronic back pain and anemia. CTA of the chest performed on presentation 01/30/2024 revealed no pulmonary emboli, mild interstitial pulmonary edema noted with a small left and moderate right pleural effusion. A CT of the lumbar spine performed yesterday 01/30/2024 revealed severe multilevel degenerative disc disease with suboptimal evaluation of the central canal given CT technique and artifact. MRI of the lumbar spine is tentatively planned. Patient denies subjective shortness of breath. During my assessment, she was quite comfortable. Cardiac History: 1. Non-obstructive CAD by left heart catheterization 2010. 2. Hypertension 3. Chronic compensated diastolic heart failure. 4. Renal artery stenosis, status post B/L renal artery stenting. H/o right FMD. 5. Dyslipidemia 6. Palpitations,one documented episode of atrial fibrillation in the setting of sepsis, December, 7. Diabetes type 2 8. CKD stage 3 Allergies Allergy/AdvReac Type Severity Reaction Status Date / Time allopurinol Allergy Mild RASH Verified 10/01/19 09:44 Penicillins Allergy Mild HIVES Verified 10/01/19 09:44 Bactrim Allergy Unknown ANXIETY Verified 09/26/17 08:37 AND HALLUCINATION sulfamethoxazole AdvReac Intermediate ANXIETY Verified 03/23/21 20:14 AND HALLUCINATION trimethoprim AdvReac Intermediate ANXIETY Verified 03/23/21 20:14 AND HALLUCINATION Home Medications Medication Instructions Recorded Confirmed Type aspirin 81 mg tablet,delayed 81 mg PO DAILY 01/06/24 01/30/24 History release atorvastatin 20 mg tablet 20 mg PO DAILY 01/06/24 01/30/24 History calcitriol 0.25 mcg capsule 0.25 mcg PO UD 01/06/24 01/30/24 History fluticasone propionate 50 1 spray intranasal DAILY 01/06/24 01/30/24 History mcg/actuation nasal spray,suspension lorazepam 0.5 mg tablet 0.5 mg PO TID PRN Anxiety 01/06/24 01/30/24 History semaglutide 1 mg/dose (4 mg/3 mL) 1 mg subcut WK 01/06/24 01/30/24 History subcutaneous pen injector (Ozempic) furosemide 20 mg tablet 60 mg PO DAILY 01/07/24 01/30/24 History losartan 100 mg tablet 100 mg PO DAILY 01/07/24 01/30/24 History omeprazole 20 mg capsule,delayed 20 mg PO DAILY 01/07/24 01/30/24 History release Vancomycin Consult Active [Consult] 1 ea Not Applicable UD PRN ##0 01/11/24 01/30/24 Rx acetaminophen 500 mg tablet 1,000 mg (2 x 500 mg) PO TID #0 01/11/24 01/30/24 Rx (Tylenol Extra Strength) tabs amlodipine 5 mg tablet 10 mg (2 x 5 mg) PO DAILY #0 tabs 01/11/24 01/30/24 Rx carvedilol 25 mg tablet 25 mg PO BIDM #0 tabs 01/11/24 01/30/24 Rx clonidine HCl 0.1 mg tablet 0.1 mg PO BID #0 tabs 01/11/24 01/30/24 Rx clonidine HCl 0.1 mg tablet 0.1 mg PO Q8H PRN #0 tabs 01/11/24 01/30/24 Rx gabapentin 400 mg capsule 400 mg PO BID #0 caps 01/11/24 01/30/24 Rx heparin, porcine (PF) 5,000 5,000 unit (0.5 mL) subcut Q8 #0 mL 01/11/24 01/30/24 Rx unit/0.5 mL injection syringe isosorbide mononitrate 30 mg 30 mg PO QAM #0 tabs 01/11/24 01/30/24 Rx tablet,extended release 24 hr tramadol 50 mg tablet 50 mg PO Q8H PRN Severe Pain 01/11/24 01/30/24 Rx (Scale Score 7-10) #0 tabs Patient History Medical History Demand ischemia of myocardium Paroxysmal atrial fibrillation with rapid ventricular response Intraductal papilloma of breast left Renal artery stenosis status post bilateral renal artery stenting Cancer uterine s/p hysterectomy (no chemo/XRT) Chronic back pain Gout Chronic kidney disease stage III (follows with Dr. Okeefe) GERD (gastroesophageal reflux disease) controlled Diabetes mellitus, type 2 Hypertension Hyperlipidemia Surgical History History of renal stent RIGHT/LEFT History of cataract surgery R/L History of hysterectomy TOTAL History of bilateral tubal ligation History of dilatation and curettage X 2 History of hand surgery RIGHT CYST History of cholecystectomy Fusion of spine LUMBAR Family History Brother Family history of diabetes mellitus Mother Family hx of colon cancer Social History Smoking Status: Never smoker Second Hand Exposure: Yes (SPOUSE SMOKES); Do You Dip or Chew Tobacco: No; Hx Alcohol Use: No Hx Substance Use: No Preferred Language: Belarusian Communication Ability: Effective 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: No Beliefs That Will Affect Care: None Current Living Situation: Alf Current Living Situation Comment: [facility] Other Information That Helps Us Care for You: No Feels Safe at Home: Yes Safety Concerns: Feels Safe At This Time Assistive Devices: Cane and Walker Review of Systems Review of Systems: All systems reviewed & are unremarkable except as noted in HPI & below Physical Exam Physical Exam: General: no acute distress and stated age Eyes: conjunctiva are pink and non-injected, sclera clear Neck: normal jugular venous pulse, no hepatojugular reflux Chest: normal shape and normal respiratory effort Lungs: Decreased breath sounds at the bases, right worse than left Cardiac Exam: - regular heart sounds, no murmurs, rubs, or gallops, no jugular venous distention Abdomen: abdomen soft, non-tender, no abnormal masses and no hepatosplenomegaly Extremities: no edema and no cyanosis Neuro:awake, conversant, follows commands, List both arms without difficulty, able to wiggle toes bilaterally, but does not lift her left leg Psych: appropriate affect and insight. Results & Data Vital Signs (Past 12 Hours) Vital Signs Temp Pulse Resp BP Pulse Ox O2 Del Method O2 Flow Rate 01/31/24 08:26 36.4 C L 79 15 156/61 H 96 Nasal Cannula 2 01/31/24 02:57 36.7 C 72 17 155/69 H 95 Nasal Cannula 2
--- NOTE | 2024-01-31 12:44 | Hospitalist Progress Note ---
Date of Service January 31, 2024 Assessment & Plan (1) Acute back pain: (2) Hypertension: (3) Diabetes: (4) Hyperlipidemia: (5) Morbid obesity: (6) (HFpEF) heart failure with preserved ejection fraction: (7) Epidural abscess: (8) Anemia: Plan Ms. 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 Patient's postop hgb has ranged Her Hgb was low 7.2-8.2. She was recently admitted to [facility] from 01/06/24 - 01/11/24 and was found to have sepsis/bacteremia and was transferred on 01/10 to [facility] where she underwent C2-C6 debridement under the care of Dr. oN with neurosurgery. Cultures grew MRSA; was started on Vancomycin per ID which is to continue @ 750 mg IV daily until 02/21. She has a planned Neurosurgery f/u at [facility] on 02/11. She has been bedbound since 01/06/24. All PT/OT has gotten her up to ambulate, but she can not get up without assistance and she is developing a pressure ulcer from being sedentary. #Severe LLE pain and weakness #Ambulatory dysfunction #Moderate lumbar spinal stenosis -lumbar spine CT: No acute fractures. Severe multilevel degenerative disc disease and facet arthrosis within the lumbar spine. Suboptimal evaluation of the central canal MRI ordered and pending read Scheduled tylenol q8 Oxy prn severe pain will consider steroid dose sobia continent on Ortho spine review Plan for PT/OT when able #Sacral pressure wounds, POA wound care to stage and eval air mattress ordered #Acute hypoxic resp failure 2/2 pulm edema #Acute on chronic heart failure with preserved EF #HTN: Chronic Takes Lasix 80 mg daily; this has been on hold due to renal function 01/09/24 DUANE: No evidence of a valvular vegetation. Small, incidental PFO noted. EF 55-60%. 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 No with neurosurgery Cultures grew MRSA; was started on Vancomycin per ID which is to continue @ 750 mg IV daily until 02/21. Last Vanco level drawn yesterday; discussed with pharmacy Neurosurgery f/u at [facility] on 02/11 Continue Vancomycin IV #Paroxysmal Atrial fibrillation: No prior history of AF, likely iso severe illness Continue ASA Metoprolol transitioned to Coreg during last admission, currently 25mg BID; continue Disposition: PCP: Dr. Clarke Code Status: Full VTE Prophylaxis: Heparin SQ Admission and Anticipated Discharge Date Admission Date: January 30, 2024 Subjective Evaluated patient at bedside. Reports LLE pain mostly, starts in thigh and wraps around side of leg "shooting down" She also notes she cannot move her leg, but still can move RLE She notes that her sacrum/bottom hurts from "sitting" but is unable to sit in bedside chair due to pain increasing in LLE Denies chest pain, neck pain, fevers, chills or other acute concerns Denies saddle anesthesia, fecal/urinary incontinence Physical Exam Constitutional: WD/WN, vitals as above Respiratory: diminished breath sounds Cardiovascular: RRR, 3+ pittting edema LLE > RLE Neurologic: Strength in LLE 1/5, able to plantar flex, not able to dorsiflex Results & Data Results & Data Vital Signs (Past 12 Hours) Vital Signs Temp Pulse Resp BP Pulse Ox O2 Del Method O2 Flow Rate 01/31/24 08:26 36.4 C L 79 15 156/61 H 96 Nasal Cannula 2 01/31/24 02:57 36.7 C 72 17 155/69 H 95 Nasal Cannula 2 Laboratory Results Short CBC 01/30/24 01/31/24 01/31/24 Range/Units 13:08 00:16 05:55 WBC 10.85 H 9.83 8.92 (4.8-10.8) K/ul Hgb 8.2 L 7.7 L 7.3 L (12.0-16.0) g/dl Hct 25.5 L 23.5 L 22.0 L (37.0-47.0) % Plt Count 449 H 423 H 407 H (130-400) K/uL BMP 01/30/24 01/31/24 13:08 05:55 Sodium 138 137 Potassium 4.3 3.7 Chloride 108 H 106 Carbon Dioxide 22 25 BUN 27 H 26 H Creatinine 1.23 H 1.19 Glucose 120 H 91 Calcium 8.5 L 8.6 Liver Function 01/30/24 Range/Units 13:08 Total Bilirubin 0.6 (0.2-1.0) mg/dl AST 15 (13-39) U/L ALT 14 (7-52) U/L Alkaline Phosphatase 63 (34-104) U/L Albumin 2.3 L (3.4-5.0) gm/dl Medications Administered Home Medications Medication Instructions Recorded Confirmed Last Taken aspirin 81 mg tablet,delayed 81 mg PO DAILY 01/06/24 01/30/24 Unknown release atorvastatin 20 mg tablet 20 mg PO DAILY 01/06/24 01/30/24 Unknown calcitriol 0.25 mcg capsule 0.25 mcg PO UD 01/06/24 01/30/24 Unknown fluticasone propionate 50 1 spray intranasal DAILY 01/06/24 01/30/24 Unknown mcg/actuation nasal spray,suspension lorazepam 0.5 mg tablet 0.5 mg PO TID PRN Anxiety 01/06/24 01/30/24 Unknown semaglutide 1 mg/dose (4 mg/3 mL) 1 mg subcut WK 01/06/24 01/30/24 Unknown subcutaneous pen injector (Ozempic) furosemide 20 mg tablet 60 mg PO DAILY 01/07/24 01/30/24 Unknown losartan 100 mg tablet 100 mg PO DAILY 01/07/24 01/30/24 Unknown omeprazole 20 mg capsule,delayed 20 mg PO DAILY 01/07/24 01/30/24 Unknown release Vancomycin Consult Active [Consult] 1 ea Not Applicable UD PRN ##0 01/11/24 01/30/24 Unknown acetaminophen 500 mg tablet 1,000 mg (2 x 500 mg) PO TID #0 01/11/24 01/30/24 Unknown (Tylenol Extra Strength) tabs amlodipine 5 mg tablet 10 mg (2 x 5 mg) PO DAILY #0 tabs 01/11/24 01/30/24 Unknown carvedilol 25 mg tablet 25 mg PO BIDM #0 tabs 01/11/24 01/30/24 Unknown clonidine HCl 0.1 mg tablet 0.1 mg PO BID #0 tabs 01/11/24 01/30/24 Unknown clonidine HCl 0.1 mg tablet 0.1 mg PO Q8H PRN #0 tabs 01/11/24 01/30/24 Unknown gabapentin 400 mg capsule 400 mg PO BID #0 caps 01/11/24 01/30/24 Unknown heparin, porcine (PF) 5,000 5,000 unit (0.5 mL) subcut Q8 #0 mL 01/11/24 01/30/24 Unknown unit/0.5 mL injection syringe isosorbide mononitrate 30 mg 30 mg PO QAM #0 tabs 01/11/24 01/30/24 Unknown tablet,extended release 24 hr tramadol 50 mg tablet 50 mg PO Q8H PRN Severe Pain 01/11/24 01/30/24 Unknown (Scale Score 7-10) #0 tabs Active Medications Generic Name Dose Route Start Last Admin Trade Name Freq PRN Reason Stop Dose Admin Acetaminophen 1,000 mg 01/31/24 10:15 01/31/24 10:43 Acetaminophen 500 Mg Tab PO 03/01/24 10:14 1,000 mg Q8 VAN Administration Amlodipine Besylate 10 mg 01/31/24 09:00 01/31/24 09:04 Amlodipine Besylate 5 Mg Tab PO 03/01/24 08:59 10 mg DAILY VAN Administration Aspirin 81 mg 01/31/24 09:00 01/31/24 09:04 Aspirin 81 Mg Ectab PO 03/01/24 08:59 81 mg DAILY VAN Administration Atorvastatin Calcium 20 mg 01/31/24 09:00 01/31/24 09:04 Atorvastatin 20 Mg Tab PO 03/01/24 08:59 20 mg DAILY VAN Administration Calcitriol 0.25 mcg 01/30/24 19:45 01/30/24 20:51 Calcitriol 0.25 Mcg Capsule PO 02/29/24 19:44 0.25 mcg TuTh@0900 VAN Administration Carvedilol 25 mg 01/31/24 08:00 01/31/24 09:04 Carvedilol 25 Mg Tab PO 03/01/24 07:59 25 mg BIDM VAN Administration Clonidine HCl 0.1 mg 01/31/24 09:00 01/31/24 09:04 Clonidine Hcl 0.1 Mg Tab PO 03/01/24 08:59 0.1 mg QAM VAN Administration Fluticasone Propionate 1 sprays 01/31/24 09:00 01/31/24 09:04 Fluticasone Propionate Na Spr 16 Gm Btl NA 03/01/24 08:59 1 sprays DAILY VAN Administration Furosemide 60 mg 01/31/24 09:00 01/31/24 09:04 Furosemide Inj 20 Mg/2 Ml Vial IV 03/01/24 08:59 60 mg DAILY VAN Administration Gabapentin 400 mg 01/30/24 21:00 01/31/24 10:43 Gabapentin 400 Mg Cap PO 02/29/24 20:59 400 mg BID VAN Administration Heparin Sodium (Porcine) 5,000 units 01/30/24 22:00 01/31/24 05:03 Heparin Sod 5,000 Unit/0.5 Ml Vial SQ 02/29/24 21:59 5,000 units Q8 VAN Administration Vancomycin HCl 750 mg/ Sodium 265 mls @ 200 mls/hr 01/31/24 09:00 01/31/24 11:21 Chloride IV 02/07/24 08:59 Infused Q24H VAN Infusion Isosorbide Mononitrate 30 mg 01/31/24 09:00 01/31/24 09:04 Isosorbide Hart Extended Rel 30 Mg Tabcr PO 03/01/24 08:59 30 mg QAM VAN Administration Lorazepam 0.5 mg 01/30/24 19:28 01/31/24 00:23 Lorazepam 0.5 Mg Tab PO 02/29/24 19:27 0.5 mg TID PRN Administration Anxiety Pantoprazole Sodium 40 mg 01/31/24 09:00 01/31/24 09:04 Pantoprazole 40 Mg Tab PO 03/01/24 08:59 40 mg DAILY VAN Administration Spironolactone 12.5 mg 01/31/24 12:30 01/31/24 13:15 Spironolactone 12.5 Mg Tab PO 03/01/24 12:29 12.5 mg DAILY VAN Administration (2) Hypertension Hypertension type: renovascular hypertension Qualified Code(s): I15.0 - Renovascular hypertension
[2024-01-31] MEDS: LIDOCAINE 5% 1 PATCH TD STA (13:02)
[2024-01-31] MEDS: POTASSIUM CHLORIDE CRTAB 20 MEQ TABCR PO STA (13:02)
[2024-01-31] MEDS: SPIRONOLACTONE 12.5 MG TAB PO SCH (13:15)
--- NOTE | 2024-01-31 13:48 | Orthopedic Consultation ---
Date of Consultation January 31, 2024 Assessment & Plan (1) Neurogenic claudication due to lumbar spinal stenosis: MRI lumbar spine available for review demonstrates severe multilevel lumbar spinal stenosis with spondylolisthesis. It is most impressive at the L2-L3 L3- L4 level. Appears to be previous laminotomy defect at L4-L5. I do not appreciate evidence of infection. Plan discussed with this patient and her family reviewing MRI findings and clinical course. This time she is not a surgical candidate in light of her recent epidural abscess and current antibiotic regimen. I am very concerned about her deconditioning and prolonged bedrest. She would best served with continued rehab as tolerated. She will follow-up with her surgeons at [facility] regarding her cervical spine. At some point she may need to have her lumbar spine addressed surgically. History of Present Illness Reason for Consultation: Back pain Attending Physician: Autumn Emerson MD History of Present Illness This is a very pleasant 78-year-old female presents the emergency room yesterday with significant back pain particularly rating into the left buttock. This is most noticeable when she sits and tries to stand. She does have a history of recent cervical epidural abscess. This was debrided approximately 3 weeks ago. Preoperatively she had marked deficits of neurologic function of the left arm and left leg. Left arm has improved substantially since decompression. Left leg is still lagging behind. The right lower extremities not affected. She states that she has marked difficulty sitting up without assistance. She is not ambulated since surgery. Prior to her epidural cervical abscess she states she was ambulating with a walker and has been doing so for years. She does have a history of lumbar laminectomies in the . Allergies Allergy/AdvReac Type Severity Reaction Status Date / Time allopurinol Allergy Mild RASH Verified 10/01/19 09:44 Penicillins Allergy Mild HIVES Verified 10/01/19 09:44 Bactrim Allergy Unknown ANXIETY Verified 09/26/17 08:37 AND HALLUCINATION sulfamethoxazole AdvReac Intermediate ANXIETY Verified 03/23/21 20:14 AND HALLUCINATION trimethoprim AdvReac Intermediate ANXIETY Verified 03/23/21 20:14 AND HALLUCINATION Home Medications Medication Instructions Recorded Confirmed Type aspirin 81 mg tablet,delayed 81 mg PO DAILY 01/06/24 01/30/24 History release atorvastatin 20 mg tablet 20 mg PO DAILY 01/06/24 01/30/24 History calcitriol 0.25 mcg capsule 0.25 mcg PO UD 01/06/24 01/30/24 History fluticasone propionate 50 1 spray intranasal DAILY 01/06/24 01/30/24 History mcg/actuation nasal spray,suspension lorazepam 0.5 mg tablet 0.5 mg PO TID PRN Anxiety 01/06/24 01/30/24 History semaglutide 1 mg/dose (4 mg/3 mL) 1 mg subcut WK 01/06/24 01/30/24 History subcutaneous pen injector (Ozempic) furosemide 20 mg tablet 60 mg PO DAILY 01/07/24 01/30/24 History losartan 100 mg tablet 100 mg PO DAILY 01/07/24 01/30/24 History omeprazole 20 mg capsule,delayed 20 mg PO DAILY 01/07/24 01/30/24 History release Vancomycin Consult Active [Consult] 1 ea Not Applicable UD PRN ##0 01/11/24 01/30/24 Rx acetaminophen 500 mg tablet 1,000 mg (2 x 500 mg) PO TID #0 01/11/24 01/30/24 Rx (Tylenol Extra Strength) tabs amlodipine 5 mg tablet 10 mg (2 x 5 mg) PO DAILY #0 tabs 01/11/24 01/30/24 Rx carvedilol 25 mg tablet 25 mg PO BIDM #0 tabs 01/11/24 01/30/24 Rx clonidine HCl 0.1 mg tablet 0.1 mg PO BID #0 tabs 01/11/24 01/30/24 Rx clonidine HCl 0.1 mg tablet 0.1 mg PO Q8H PRN #0 tabs 01/11/24 01/30/24 Rx gabapentin 400 mg capsule 400 mg PO BID #0 caps 01/11/24 01/30/24 Rx heparin, porcine (PF) 5,000 5,000 unit (0.5 mL) subcut Q8 #0 mL 01/11/24 01/30/24 Rx unit/0.5 mL injection syringe isosorbide mononitrate 30 mg 30 mg PO QAM #0 tabs 01/11/24 01/30/24 Rx tablet,extended release 24 hr tramadol 50 mg tablet 50 mg PO Q8H PRN Severe Pain 01/11/24 01/30/24 Rx (Scale Score 7-10) #0 tabs Patient History Medical History Demand ischemia of myocardium Paroxysmal atrial fibrillation with rapid ventricular response Intraductal papilloma of breast left Renal artery stenosis status post bilateral renal artery stenting Cancer uterine s/p hysterectomy (no chemo/XRT) Chronic back pain Gout Chronic kidney disease stage III (follows with Dr. Okeefe) GERD (gastroesophageal reflux disease) controlled Diabetes mellitus, type 2 Hypertension Hyperlipidemia Surgical History History of renal stent RIGHT/LEFT History of cataract surgery R/L History of hysterectomy TOTAL History of bilateral tubal ligation History of dilatation and curettage X 2 History of hand surgery RIGHT CYST History of cholecystectomy Fusion of spine LUMBAR Family History Brother Family history of diabetes mellitus Mother Family hx of colon cancer Social History Smoking Status: Never smoker Second Hand Exposure: Yes (SPOUSE SMOKES); Do You Dip or Chew Tobacco: No; Hx Alcohol Use: No Hx Substance Use: No Preferred Language: Khmer Communication Ability: Effective Range Scientist Required: No Beliefs That Will Affect Care: None Current Living Situation: [facility] Current Living Situation Comment: [facility] Other Information That Helps Us Care for You: No Feels Safe at Home: Yes Safety Concerns: Feels Safe At This Time Assistive Devices: Cane and Walker Physical Exam Physical Exam: On exam patient is comfortable in bed at this time. She is alert and oriented. She exhibits reasonable 5/5 strength of right plantarflexion dorsiflexion quadriceps. Sensory is intact to cold and light touch. Left lower extremity she has dense numbness no sensation to cold. 3/5 strength testing. Her ce rvical incision appears to be healing appropriately. No erythema no drainage. She has been strength testing upper extremities. Results & Data Vital Signs (Past 12 Hours) Vital Signs Temp Pulse Resp BP Pulse Ox O2 Del Method O2 Flow Rate 01/31/24 13:07 Nasal Cannula 2 01/31/24 08:26 36.4 C L 79 15 156/61 H 96 Nasal Cannula 2 01/31/24 02:57 36.7 C 72 17 155/69 H 95 Nasal Cannula 2
--- NOTE | 2024-01-31 14:07 | Pharmacy Report ---
Pharmacy PK ABX Note - Date of Service January 31, 2024 - Assessment and Plan Assessment * Ms Escobar is a 78 year old F receiving IV vancomycin for treatment of an epidural abscess. * Pt was admitted from 01/05-01/10 with sepsis/bacteremia and was transferred to [facility] on 01/10 where she underwent C2-C6 debridement w/ neurosurgery. * Pertinent microbiologic data includes: [place] [facility] [place]. * Other significant PMH includes DM, CHF, CKD stage III * Day ~20 of antimicrobial therapy. Per ID, vanc is to continue until 02/21. Plan Vancomycin * Vanc was [place] [facility] and managed per ID. Pt has been receiving 750mg IV q24h. Per outside records, trough level on 01/28 was 14.2 mcg/mL. * Vanc level obtained this morning to confirm appropriateness of presenting dose. Vanc level: 14.9 mcg/mL (near-trough timing). * Continue vanc 750mg IV q24h. Regimen is predicted to achieve target AUC/RENAN of 400-600 mg/L.hr * Will consider checking another vanc level in 2-3 days if pt remains hospitalized Pharmacy will continue to follow and will adjust dose/frequency as necessary. Thank you. Pharmacy has transitioned to AUC monitoring for vancomycin. AUC/RENAN is the preferred PK/PD target and is associated with decreased risk of nephrotoxicity compared to traditional trough targets.
[2024-01-31 14:33] LABS: Immature Retic Fraction 28.2 % (2.3-15.9); Reticulated Hemoglobin 26.7 pg (28.2-36.6); Reticulocyte % 1.73 % (0.50-2.00); Reticulocytes # 0.04 10^6/uL (0.020-0.100)
[2024-01-31 14:55] LABS: Folate (Folic Acid),Ser orPlas 7.95 ng/ml (>5.38)
--- NOTE | 2024-01-31 15:01 | Electrocardiogram Report ---
Test Reason : Blood Pressure : */* mmHG Vent. Rate : 74 BPM Atrial Rate : 74 BPM P-R Int : 240 ms QRS Dur : 106 ms QT Int : 366 ms P-R-T Axes : 38 -13 29 degrees QTcB Int : 406 ms Sinus rhythm with 1st degree A-V block Otherwise Normal ECG When compared with ECG of 08-Jan-2024 06:00, Borderline criteria for Anteroseptal infarct are no longer Present Confirmed by Laureano Staples ([id number]) on 01/31/2024 3:00:25 PM Referred By: REFERRED SELF Confirmed By: Laureano Staples
[2024-01-31] MEDS: IRON SUCROSE 300 MG in SODIUM CHLORIDE 0.9% 250 ML IV SCH (15:34)
--- NOTE | 2024-01-31 16:46 | Magnetic Resonance Report ---
MR lumbar spine wo con CLINICAL HISTORY: 78 years-old Female with back pain. Acute low back pain with sepsis. Clinical conc frankie for discitis/osteomyelitis. Large epidural abscess of the cervical spine seen on recent imaging. COMPARISON: CTA chest 01/30/2024, MR lumbar spine 01/06/2024. TECHNIQUE: Multiplanar, multi sequence MRI of the lumbar spine was performed without intravenous cont rast. FINDINGS: Motion degraded exam. Mild lumbar levoscoliosis. No paraspinal fluid collections. There is moderate a trophy of the paraspinal musculature. Trace pelvic ascites with diffuse subcutaneous edema within the posterior back. Conus medullaris terminates at L1-L2. Small amount of fluid signal within the T11-T12 disc space is similar to prior. No endplate erosions. This may be on a degenerative basis. There is progressively worsened fluid signal within the L2-L3 a nd L3-L4 disc spaces. Marrow edema at L3-L4 is again noted with areas of mild endplate irregularity. Mild paravertebral edema. Minimal fluid signal within the L4-L5 and L5-S1 disc spaces is likely degen erative related. T11-T12: Moderate disc space narrowing with circumferential disc osteophyte complex and moderate face t arthrosis. There is moderate central canal stenosis with AP dimension of the thecal sac measuring 6 mm. Severe right with moderate left foraminal stenosis. Findings are unchanged T12-L1: No central canal or neural foraminal stenosis. L1-L2: No central canal or neural foraminal stenosis. L2-L3: Moderate disc space narrowing with circumferential disc osteophyte complex. Ligamentum flavum thickening with advanced facet arthrosis. There is unchanged severe central canal stenosis with AP d imension of the thecal sac measuring 5 mm. Severe right with moderate left foraminal narrowing is unc hanged. L3-L4: Mild to moderate intervertebral disc space narrowing. There is moderate spondylotic spurring with circumferential annular disc bulging. Advanced facet arthrosis with small facet effusions. Sever e central canal stenosis with AP dimension of the thecal sac measuring 4 mm. Severe narrowing of the lateral recesses. There is moderate to severe narrowing of the neural foramen. There is an unchanged T1 and T2 hypointense 10 x 6 x 9 mm structure on image 19 series 7 and image 8 series 3 which is within the right paracentral distribution posterior to the mid L3 vertebral body matson ggestive of a sequestered disc fragment versus disc extrusion with superior migration. L4-L5: Severe intervertebral disc space narrowing with unchanged grade 1 anterolisthesis. Spondyloti c spurring with circumferential annular disc bulging. Central/left paracentral disc extrusion with matson perior migration measures 10 x 5 x 9 mm. Ligamentum flavum thickening with advanced facet arthrosis. There is severe left lateral recess narrowing. Moderate to severe central canal stenosis with AP dime nsion of the thecal sac measuring 6 mm. Moderate to severe left with moderate right foraminal narrowi ng is unchanged. L5-S1: Moderate to severe intervertebral disc space narrowing with circumferential disc osteophyte c omplex. Ligamentum flavum thickening with moderate facet arthrosis. Mild central canal stenosis with AP dimension of the thecal sac measuring 8 mm. Severe narrowing of the lateral recesses. Moderate villa ateral foraminal narrowing. IMPRESSION: 1. There is progressive fluid signal within the L2-L3 and L3-L4 disc spaces compared to the MRI study from 01/06/2024 which May represent early changes of discitis/osteomyelitis. There is unchanged marro w edema at L3-L4 with mildly progressive paravertebral edema. 2. No epidural or paraspinal abscess identified on this noncontrast study. 3. Discogenic degeneration with spondylotic spurring and facet arthrosis as above again resulting in multilevel central canal and foraminal narrowing. ACT 112: Negative or not required by law. The above report was generated using voice recognition software. It may contain grammatical, syntax o r spelling errors. Dictated: 01/31/2024 12:49 PM Transcribed: 01/31/2024 1:28 PM Juan Carlos [id number] Sharath [id number] Electronically signed by: Gustavo Charles M.D. 01/31/2024 4:44 PM
[2024-01-31] MEDS: PANTOprazole 40 MG in SYRINGE 0 ML IV SCH (21:02)
[2024-01-31] MEDS: SODIUM CHLORIDE 0.65% NA SOLN 45 ML (OCEAN) ONE (23:03)
[2024-01-31] MEDS: SODIUM CHLORIDE 0.65% NA SOLN 45 ML (OCEAN) PRN (23:03)
[2024-02-01] MEDS: MoRPHine SULFATE 2 MG/ML CARP IV PRN (00:26)
[2024-02-01 05:59] LABS: Hematocrit (blood only) 23.3 % (37.0-47.0); Hemoglobin 7.6 g/dl (12.0-16.0); Mean Corpuscular Hemoglobin 30.4 pg (25.0-34.0); Mean Corpuscular Hgb Conc 32.6 g/dL (32.0-36.0); Mean Corpuscular Volume 93.2 fL (80.0-100.0); Mean Platelet Volume 8.7 fL (9.4-12.4); Platelet Count 477 K/uL (130-400); RDW Standard Deviation 43.6 fL (36.4-46.3); White Blood Count 8.97 K/ul (4.8-10.8)
[2024-02-01 06:19] LABS: BUN Creatinine Ratio 21.1 (10-20); Calcium 8.6 mg/dl (8.6-10.3); Creatinine Clr Calc Pharmacy 52.5 ml/min; Potassium 3.6 mmol/L (3.5-5.1)
[2024-02-01] MEDS ORDERED: methylPREDNISolone 4 MG TAB, 6 DAY TAPER PO SCH (08:15)
[2024-02-01] MEDS: POTASSIUM CHLORIDE CRTAB 20 MEQ TABCR PO SCH (08:47)
--- NOTE | 2024-02-01 10:17 | Cardiology Progress Note ---
Date of Service February 01, 2024 Assessment & Plan (1) (HFpEF) heart failure with preserved ejection fraction: (2) Hypertension: Plan: MRI lumbar spine results reviewed. Spine surgery (Dr. Iqbal) input noted and appreciated. [place] to potentially need lumbar spine surgery at some point in the future after treatment of her infection has been completed. Had previously been on a maintenance dose of oral furosemide, 80 mg daily at baseline prior to her recent acute illness. Mild volume overload in the setting of multiple IV medications as of recently. Continue IV furosemide 60 mg daily. Potassium 3.6 mmol/L today. Continue spironolactone 12.5 mg daily, potassium chloride 20 mill equivalents p.o. daily. Agree with IV iron infusion given anemia. Remains on vancomycin for cervical spine epidural abscess for which patient underwent complex surgical intervention in December,. Patient with noted labile hypertension which was acutely worse last admission in the setting of encephalopathy and acute pain. Continue amlodipine, carvedilol, clonidine, isosorbide mononitrate, atorvastatin, and aspirin. DVT prophylaxis: Continue subcutaneous heparin. Admission and Anticipated Discharge Date Admission Date: January 30, 2024 Subjective Patient seen in cardiology follow-up. Denies subjective complaint. No respiratory distress. Physical Exam Physical Exam: General: no acute distress and stated age Eyes: conjunctiva are pink and non-injected, sclera clear Neck: normal jugular venous pulse, no hepatojugular reflux Chest: normal shape and normal respiratory effort Lungs: Decreased breath sounds at the bases, right worse than left Cardiac Exam: - regular heart sounds, no murmurs, rubs, or gallops, no jugular venous distention Abdomen: abdomen soft, non-tender, no abnormal masses and no hepatosplenomegaly Extremities: no edema and no cyanosis Neuro:awake, conversant, follows commands, List both arms without difficulty, able to wiggle toes bilaterally, but does not lift her left leg Psych: appropriate affect and insight. Results & Data Vital Signs (Past 12 Hours) Vital Signs Temp Pulse Pulse Resp BP Pulse Ox O2 Del Method 02/01/24 07:34 36.4 C L 66 18 179/79 H 95 Nasal Cannula 02/01/24 03:55 36.8 C 78 18 158/67 H 93 Nasal Cannula 01/31/24 23:11 70 01/31/24 22:38 36.6 C 72 20 177/70 H 95 Nasal Cannula O2 Flow Rate 10/12/24 07:34 2 02/01/24 03:55 2 01/31/24 23:11 01/31/24 22:38 2 (2) Hypertension Hypertension type: renovascular hypertension Qualified Code(s): I15.0 - Renovascular hypertension
[2024-02-01] MEDS: methylPREDNISolone 4 MG TAB PO SCH ×2 (10:23→13:41)
[2024-02-01] MEDS: TROLAMINE SALICYLATE 10% CRM 255 APPLN/85 GM TUBE EXT SCH (13:43)
[2024-02-01] MEDS: oxyCODONE HCL IR 5 MG TAB (IMMEDIATE RELEASE) PO PRN (13:48)
--- NOTE | 2024-02-01 14:16 | Hospitalist Progress Note ---
Date of Service February 01, 2024 Assessment & Plan (1) Acute back pain: (2) Hypertension: (3) Diabetes: (4) Hyperlipidemia: (5) Morbid obesity: (6) (HFpEF) heart failure with preserved ejection fraction: (7) Epidural abscess: (8) Anemia: Plan Ms. 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 Patient's postop hgb has ranged Her Hgb was low 7.2-8.2. She was recently admitted to [facility] from 01/06/24 - 01/11/24 and was found to have sepsis/bacteremia and was transferred on 01/10 to [facility] where she underwent C2-C6 debridement under the care of Dr. No with neurosurgery. Cultures grew MRSA; was started on Vancomycin per ID which is to continue @ 750 mg IV daily until 02/21. She has a planned Neurosurgery f/u at [facility] on 02/11. She has been bedbound since 01/06/24. All PT/OT has gotten her up to ambulate, but she can not get up without assistance and she is developing a pressure ulcer from being sedentary. Reviewed Ortho spine recommendations: no plan for surgery given active treatment for infection Will trial medrol dose pack at this time for some pain relief Will optimize anemia as able Ongoing diuersis at this time #Neurogenic claudication 2/2 lumbar stenosis #Ambulatory dysfunction #Moderate lumbar spinal stenosis -lumbar spine CT: No acute fractures. Severe multilevel degenerative disc disease and facet arthrosis within the lumbar spine. Suboptimal evaluation of the central canal MRI severe multilevel lumbar spinal stenosis with spondylolisthesis Scheduled tylenol q8 Oxy prn severe pain no current surgical candidate 2/2 tx for recent epidural abscess Medrol dose sobia today PT/OT, will need to return to rehab #Sacral pressure wounds, POA wound care to stage and eval air mattress ordered #Acute hypoxic resp failure 2/2 pulm edema #Acute on chronic heart failure with preserved EF #HTN: Chronic Takes Lasix 80 mg daily; this has been on hold due to renal function 01/09/24 DUANE: No evidence of a valvular vegetation. Small, incidental PFO noted. EF 55-60%. 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 No with neurosurgery Cultures grew MRSA; was started on Vancomycin per ID which is to continue @ 750 mg IV daily until 02/21. Last Vanco level drawn yesterday; discussed with pharmacy Neurosurgery f/u at [facility] on 02/11 Continue Vancomycin IV #Paroxysmal Atrial fibrillation: No prior history of AF, likely iso severe illness Continue ASA Metoprolol transitioned to Coreg during last admission, currently 25mg BID; continue Disposition: PCP: Dr. Clarke Code Status: Full VTE Prophylaxis: Heparin SQ Admission and Anticipated Discharge Date Admission Date: January 30, 2024 Subjective NAEO Reports continued discomfort, agreed to trial medrol dose sobia Denies any new concerns overall Physical Exam Constitutional: WD/WN, vitals as above Respiratory: diminished 2/2 positioning/effort Cardiovascular: improved pedal 2+edema Results & Data Results & Data Vital Signs (Past 12 Hours) Vital Signs Temp Pulse Resp BP Pulse Ox O2 Del Method O2 Flow Rate 02/01/24 11:42 36.3 C L 68 18 147/62 H 95 Nasal Cannula 2 02/01/24 11:14 Nasal Cannula 2 02/01/24 07:34 36.4 C L 66 18 179/79 H 95 Nasal Cannula 2 02/01/24 03:55 36.8 C 78 18 158/67 H 93 Nasal Cannula 2 Laboratory Results Short CBC 02/01/24 Range/Units 05:28 WBC 8.97 (4.8-10.8) K/ul Hgb 7.6 L (12.0-16.0) g/dl Hct 23.3 L (37.0-47.0) % Plt Count 477 H (130-400) K/uL BMP 02/01/24 05:28 Sodium 138 Potassium 3.6 Chloride 106 Carbon Dioxide 27 BUN 23 Creatinine 1.09 Glucose 92 Calcium 8.6 Medications Administered Home Medications Medication Instructions Recorded Confirmed Last Taken aspirin 81 mg tablet,delayed 81 mg PO DAILY 01/06/24 01/30/24 Unknown release atorvastatin 20 mg tablet 20 mg PO DAILY 01/06/24 01/30/24 Unknown calcitriol 0.25 mcg capsule 0.25 mcg PO UD 01/06/24 01/30/24 Unknown fluticasone propionate 50 1 spray intranasal DAILY 01/06/24 01/30/24 Unknown mcg/actuation nasal spray,suspension lorazepam 0.5 mg tablet 0.5 mg PO TID PRN Anxiety 01/06/24 01/30/24 Unknown semaglutide 1 mg/dose (4 mg/3 mL) 1 mg subcut WK 01/06/24 01/30/24 Unknown subcutaneous pen injector (Ozempic) furosemide 20 mg tablet 60 mg PO DAILY 01/07/24 01/30/24 Unknown losartan 100 mg tablet 100 mg PO DAILY 01/07/24 01/30/24 Unknown omeprazole 20 mg capsule,delayed 20 mg PO DAILY 01/07/24 01/30/24 Unknown release Vancomycin Consult Active [Consult] 1 ea Not Applicable UD PRN ##0 01/11/24 01/30/24 Unknown acetaminophen 500 mg tablet 1,000 mg (2 x 500 mg) PO TID #0 01/11/24 01/30/24 Unknown (Tylenol Extra Strength) tabs amlodipine 5 mg tablet 10 mg (2 x 5 mg) PO DAILY #0 tabs 01/11/24 01/30/24 Unknown carvedilol 25 mg tablet 25 mg PO BIDM #0 tabs 01/11/24 01/30/24 Unknown clonidine HCl 0.1 mg tablet 0.1 mg PO BID #0 tabs 01/11/24 01/30/24 Unknown clonidine HCl 0.1 mg tablet 0.1 mg PO Q8H PRN #0 tabs 01/11/24 01/30/24 Unknown gabapentin 400 mg capsule 400 mg PO BID #0 caps 01/11/24 01/30/24 Unknown heparin, porcine (PF) 5,000 5,000 unit (0.5 mL) subcut Q8 #0 mL 01/11/24 01/30/24 Unknown unit/0.5 mL injection syringe isosorbide mononitrate 30 mg 30 mg PO QAM #0 tabs 01/11/24 01/30/24 Unknown tablet,extended release 24 hr tramadol 50 mg tablet 50 mg PO Q8H PRN Severe Pain 01/11/24 01/30/24 Unknown (Scale Score 7-10) #0 tabs Active Medications Generic Name Dose Route Start Last Admin Trade Name Freq PRN Reason Stop Dose Admin Acetaminophen 1,000 mg 01/31/24 10:15 02/01/24 13:43 Acetaminophen 500 Mg Tab PO 03/01/24 10:14 1,000 mg Q8 VAN Administration Amlodipine Besylate 10 mg 01/31/24 09:00 02/01/24 08:40 Amlodipine Besylate 5 Mg Tab PO 03/01/24 08:59 10 mg DAILY VAN Administration Aspirin 81 mg 01/31/24 09:00 02/01/24 08:40 Aspirin 81 Mg Ectab PO 03/01/24 08:59 81 mg DAILY VAN Administration Atorvastatin Calcium 20 mg 01/31/24 09:00 02/01/24 08:40 Atorvastatin 20 Mg Tab PO 03/01/24 08:59 20 mg DAILY VAN Administration Calcitriol 0.25 mcg 01/30/24 19:45 01/30/24 20:51 Calcitriol 0.25 Mcg Capsule PO 02/29/24 19:44 0.25 mcg TuT@0900 VAN Administration Carvedilol 25 mg 01/31/24 08:00 02/01/24 08:40 Carvedilol 25 Mg Tab PO 03/01/24 07:59 25 mg BIDM VAN Administration Clonidine HCl 0.1 mg 01/31/24 09:00 02/01/24 08:47 Clonidine Hcl 0.1 Mg Tab PO 03/01/24 08:59 0.1 mg QAM VAN Administration Fluticasone Propionate 1 sprays 01/31/24 09:00 02/01/24 08:41 Fluticasone Propionate Na Spr 16 Gm Btl NA 03/01/24 08:59 1 sprays DAILY VAN Administration Furosemide 60 mg 01/31/24 09:00 02/01/24 08:47 Furosemide Inj 20 Mg/2 Ml Vial IV 03/01/24 08:59 60 mg DAILY VAN Administration Gabapentin 400 mg 01/30/24 21:00 02/01/24 08:40 Gabapentin 400 Mg Cap PO 02/29/24 20:59 400 mg BID VAN Administration Heparin Sodium (Porcine) 5,000 units 01/30/24 22:00 02/01/24 13:43 Heparin Sod 5,000 Unit/0.5 Ml Vial SQ 02/29/24 21:59 5,000 units Q8 VAN Administration Vancomycin HCl 750 mg/ Sodium 265 mls @ 200 mls/hr 01/31/24 09:00 02/01/24 10:22 Chloride IV 02/07/24 08:59 Infused Q24H VAN Infusion Iron Sucrose 300 mg/ Sodium 265 mls @ 176.667 mls/hr 01/31/24 15:00 02/01/24 12:10 Chloride IV 02/02/24 10:29 Infused DAILY VAN Infusion Protocol Pantoprazole Sodium 40 mg/ 10 mls @ 5 mls/min 01/31/24 21:00 02/01/24 08:43 Syringe IV 03/01/24 20:59 5 mls/min BID VAN Administration Isosorbide Mononitrate 30 mg 01/31/24 09:00 02/01/24 08:40 Isosorbide [place] Extended Rel 30 Mg Tabcr PO 03/01/24 08:59 30 mg QAM VAN Administration Lorazepam 0.5 mg 01/30/24 19:28 01/31/24 22:36 Lorazepam 0.5 Mg Tab PO 02/29/24 19:27 0.5 mg TID PRN Administration Anxiety Methylprednisolone 8 mg 02/01/24 08:30 02/01/24 10:23 Methylprednisolone 4 Mg Tab PO 02/01/24 21:01 8 mg 0700,2100 VAN Administration Methylprednisolone 4 mg 02/01/24 13:00 02/01/24 13:41 Methylprednisolone 4 Mg Tab PO 02/01/24 18:01 4 mg 1300,1800 VAN Administration Morphine Sulfate 2 mg 01/30/24 19:20 02/01/24 00:26 Morphine Sulfate 2 Mg/Ml Carp IV 02/13/24 19:19 2 mg Q4H PRN Administration Pain Oxycodone HCl 5 mg 01/30/24 19:20 02/01/24 13:48 Oxycodone Hcl Ir 5 Mg Tab (Immediate Release) PO 02/13/24 19:19 5 mg Q6H PRN Administration Pain Potassium Chloride 20 meq 02/01/24 09:00 02/01/24 08:47 Potassium Chloride Crtab 20 Meq Tabcr PO 03/02/24 08:59 20 meq QAM VAN Administration Sodium Chloride 2 sprays 01/31/24 22:57 01/31/24 23:03 Sodium Chloride 0.65% Na Soln 45 Ml ([place]) NA 03/01/24 22:56 2 sprays NOW PRN Administration Dryness Spironolactone 12.5 mg 01/31/24 12:30 02/01/24 08:41 Spironolactone 12.5 Mg Tab PO 03/01/24 12:29 12.5 mg DAILY VAN Administration Trolamine Salicylate 1 appln 02/01/24 14:00 02/01/24 13:43 Trolamine Salicylate 10% Crm 255 Appln/85 Gm Tube EXT 03/02/24 13:59 1 appln TID VAN Administration (2) Hypertension Hypertension type: renovascular hypertension Qualified Code(s): I15.0 - Renovascular hypertension
[2024-02-02 06:41] LABS: Hematocrit (blood only) 25.5 % (37.0-47.0); Hemoglobin 8.3 g/dl (12.0-16.0); Mean Corpuscular Hgb Conc 32.5 g/dL (32.0-36.0); Mean Corpuscular Volume 92.1 fL (80.0-100.0); Mean Platelet Volume 8.7 fL (9.4-12.4); Platelet Count 562 K/uL (130-400); RDW Coefficient of Variation 12.5 % (11.5-14.5); RDW Standard Deviation 42.1 fL (36.4-46.3); Red Blood Count 2.77 M/uL (4.20-5.40); White Blood Count 9.02 K/ul (4.8-10.8)
[2024-02-02 06:55] LABS: BUN Creatinine Ratio 22.3 (10-20); Calcium 8.6 mg/dl (8.6-10.3); Creatinine Clr Calc Pharmacy 55.3 ml/min; Magnesium 1.6 mg/dl (1.7-2.4); Phosphorus 3.8 mg/dl (2.5-4.9)
[2024-02-02] MEDS: MAGNESIUM SULFATE / D5W 1 GM/100 ML BAG IV ONE (07:38)
[2024-02-02] MEDS: methylPREDNISolone 4 MG TAB PO SCH ×2 (09:39→20:49)
--- NOTE | 2024-02-02 11:16 | Cardiology Progress Note ---
Date of Service February 02, 2024 Assessment & Plan (1) (HFpEF) heart failure with preserved ejection fraction: (2) Hypertension: Plan: MRI lumbar spine results reviewed. Spine surgery (Dr. Iqbal) input noted and appreciated. [place] to potentially need lumbar spine surgery at some point in the future after treatment of her infection has been completed. Had previously been on a maintenance dose of oral furosemide, 80 mg daily at baseline prior to her recent acute illness. Mild volume overload in the setting of multiple IV medications as of recently. Continue IV furosemide 60 mg daily. Agree with IV iron infusion given anemia. Remains on vancomycin for cervical spine epidural abscess for which patient underwent complex surgical intervention in December,. Patient with noted labile hypertension which was acutely worse last admission in the setting of encephalopathy and acute pain. Continue amlodipine, carvedilol, clonidine, isosorbide mononitrate, atorvastatin, spironolactone and aspirin. Repeat portable chest X -ray o 02/03/24. DVT prophylaxis: Continue subcutaneous heparin. Admission and Anticipated Discharge Date Admission Date: January 30, 2024 Subjective Patient seen in cardiology follow-up, spouse, Juvenal, at the bedside today. Telemetry reveals sinus rhythm in the 60s. Moving her left arm without difficulty. Ongoing left leg immobility. Bob catheter in place. Physical Exam Physical Exam: General: no acute distress and stated age Eyes: conjunctiva are pink and non-injected, sclera clear Neck: normal jugular venous pulse, no hepatojugular reflux Chest: normal shape and normal respiratory effort Lungs: Decreased breath sounds at the bases, right worse than left Cardiac Exam: - regular heart sounds, no murmurs, rubs, or gallops, no jugular venous distention Abdomen: abdomen soft, non-tender, no abnormal masses and no hepatosplenomegaly Extremities: no edema and no cyanosis Neuro:awake, conversant, follows commands, List both arms without difficulty, able to wiggle toes bilaterally, but does not lift her left leg Psych: appropriate affect and insight. Results & Data Vital Signs (Past 12 Hours) Vital Signs Temp Pulse Resp BP Pulse Ox O2 Del Method O2 Flow Rate 02/02/24 07:47 36.4 C L 75 20 174/72 H 96 Nasal Cannula 2 02/02/24 03:04 36.7 C 78 16 157/78 H 95 Nasal Cannula 2 Laboratory Results CBC 02/02/24 Range/Units 05:50 WBC 9.02 (4.8-10.8) K/ul RBC 2.77 L (4.20-5.40) M/uL Hgb 8.3 L (12.0-16.0) g/dl Hct 25.5 L (37.0-47.0) % Plt Count 562 H (130-400) K/uL Comprehensive Metabolic Panel 02/02/24 Range/Units 05:50 Sodium 139 (136-145) mmol/L Potassium 4.0 (3.5-5.1) mmol/L Chloride 104 (98-107) mmol/L Carbon Dioxide 29 (21-32) mmol/L BUN 23 (6-23) mg/dl Creatinine 1.03 (0.6-1.2) mg/dl Glucose 134 H (70-99(Fasting)) mg/dl Calcium 8.6 (8.6-10.3) mg/dl Intake and Output 02/01/24 02/02/24 02/02/24 22:59 06:59 14:59 Intake Total 240 / 1010 365 / 365 Output Total 801 / 2826 425 / 2826 Balance -801 / -1816 -185 / -1816 365 / 365 Intake: IV 365 / 365 Magnesium Sulfate / D5w 1 gm In 100 / 100 100 ml @ 50 mls/hr IV ONE ONE Rx#:[id number] Vancomycin HCl 750 mg In Sodium 265 / 265 Chloride 0.9% 250 ml @ 200 mls /hr IV Q24H [facility] Rx#:[id number] Oral 240 / 480 Output: Urine Amount (Catheter) 800 / 2825 425 / 2825 Bob/Indwelling 800 / 2825 425 / 2825 # Bowel Movements Other: Weight 115.847 kg Weight Measurement Method Built in [facility] (2) Hypertension Hypertension type: renovascular hypertension Qualified Code(s): I15.0 - Renovascular hypertension
--- NOTE | 2024-02-02 13:24 | Hospitalist Progress Note ---
Date of Service February 02, 2024 Assessment & Plan (1) Acute back pain: (2) Hypertension: (3) Diabetes: (4) Hyperlipidemia: (5) Morbid obesity: (6) (HFpEF) heart failure with preserved ejection fraction: (7) Epidural abscess: (8) Anemia: Plan Ms. 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 Patient's postop hgb has ranged Her Hgb was low 7.2-8.2. She was recently admitted to [facility] from 01/06/24 - 01/11/24 and was found to have sepsis/bacteremia and was transferred on 01/10 [place] [facility] [place] underwent C2-C6 debridement under the care of Dr. No with neurosurgery. Cultures grew MRSA; was started on Vancomycin per ID which is to continue @ 750 mg IV daily until 02/21. She has a planned Neurosurgery f/[place] [facility] [place]. She has been bedbound since 01/06/24. All PT/OT has gotten her up to ambulate, but she can not get up without assistance and she is developing a pressure ulcer from being sedentary. Patient is now s/p 3 days of IV venofer, will transition to PO supplementation. Reviewed Ortho spine recommendations: no plan for surgery given active treatment for infection Will trial medrol dose pack at this time for some pain relief, so far no success Plan for pain management consult as patient sensitive to many regimens however, ability to participate in any rehab is notable limited Ongoing diuresis at this time #Neurogenic claudication 2/2 lumbar stenosis #Ambulatory dysfunction #Moderate lumbar spinal stenosis -lumbar spine CT: No acute fractures. Severe multilevel degenerative disc disease and facet arthrosis within the lumbar spine. Suboptimal evaluation of the central canal MRI severe multilevel lumbar spinal stenosis with spondylolisthesis Scheduled tylenol q8 Oxy prn severe pain no current surgical candidate 2/2 tx for recent epidural abscess Medrol dose sobia today pain managment consult: optimize regimen or limited until procedure? PT/OT, will need to return to rehab #Sacral pressure wounds, POA wound care to stage and eval air mattress ordered #Acute hypoxic resp failure 2/2 pulm edema #Acute on chronic heart failure with preserved EF #HTN: Chronic Takes Lasix 80 mg daily; this has been on hold due to renal function 01/09/24 DUANE: No evidence of a valvular vegetation. Small, incidental PFO noted. EF 55-60%. Continue IV lasix daily Strict I/Os Continue with [employer] amlopidine, coreg, clonidine, imdur continue spironolactone and po k replacement continue asa and statin Wean o2 as able #Acute on chronic anemia #Iron deficiency Acute T/C done and blood consent signed Likely multifactorial iso critical illness, noted iron deficiency PPI IV BID , FOBT ordered not collected completed 3 days of IV venofer start daily iron tablet #Recent Epidural Abscess s/p c2-c6 debridement #Recent MRSA bacteremia on assisted antimicrobial therapy Recent transfer on 01/10 [place] [facility] [place] she underwent C2-C6 debridement under the care of Dr. No with neurosurgery Cultures grew MRSA; was started on Vancomycin per ID which is to continue @ 750 mg IV daily until 02/21. Last Vanco level drawn yesterday; discussed with pharmacy Neurosurgery f[place] [facility] [place] Continue Vancomycin IV #Paroxysmal Atrial fibrillation: No prior history of AF, likely iso severe illness Continue ASA Metoprolol transitioned to Coreg during last admission, currently 25mg BID; continue Disposition: PCP: Dr. Clarke Code Status: Full VTE Prophylaxis: Heparin SQ Admission and Anticipated Discharge Date Admission Date: January 30, 2024 Subjective Evaluated patient at bedside Trial of medrol dose sobia ongoing, with reported minimal relief Patient states she is frequently uncomfortable and requires repositioning often No other new concerns Physical Exam Constitutional: WD/WN, vitals as above Respiratory: diminshed 2/2 positioning/effort Cardiovascular: RRR, improved pedal edema BLE Results & Data Results & Data Vital Signs (Past 12 Hours) Vital Signs Temp Pulse Resp BP Pulse Ox O2 Del Method O2 Flow Rate 02/02/24 12:02 Nasal Cannula 2 02/02/24 11:58 36.6 C 70 18 149/67 H 94 Nasal Cannula 2 02/02/24 07:47 36.4 C L 75 20 174/72 H 96 Nasal Cannula 2 02/02/24 03:04 36.7 C 78 16 157/78 H 95 Nasal Cannula 2 Laboratory Results Short CBC 02/02/24 Range/Units 05:50 WBC 9.02 (4.8-10.8) K/ul Hgb 8.3 L (12.0-16.0) g/dl Hct 25.5 L (37.0-47.0) % Plt Count 562 H (130-400) K/uL BMP 02/02/24 05:50 Sodium 139 Potassium 4.0 Chloride 104 Carbon Dioxide 29 BUN 23 Creatinine 1.03 Glucose 134 H Calcium 8.6 Medications Administered Home Medications Medication Instructions Recorded Confirmed Last Taken aspirin 81 mg tablet,delayed 81 mg PO DAILY 01/06/24 01/30/24 Unknown release atorvastatin 20 mg tablet 20 mg PO DAILY 01/06/24 01/30/24 Unknown calcitriol 0.25 mcg capsule 0.25 mcg PO UD 01/06/24 01/30/24 Unknown fluticasone propionate 50 1 spray intranasal DAILY 01/06/24 01/30/24 Unknown mcg/actuation nasal spray,suspension lorazepam 0.5 mg tablet 0.5 mg PO TID PRN Anxiety 01/06/24 01/30/24 Unknown semaglutide 1 mg/dose (4 mg/3 mL) 1 mg subcut WK 01/06/24 01/30/24 Unknown subcutaneous pen injector (Ozempic) furosemide 20 mg tablet 60 mg PO DAILY 01/07/24 01/30/24 Unknown losartan 100 mg tablet 100 mg PO DAILY 01/07/24 01/30/24 Unknown omeprazole 20 mg capsule,delayed 20 mg PO DAILY 01/07/24 01/30/24 Unknown release Vancomycin Consult Active [Consult] 1 ea Not Applicable UD PRN ##0 01/11/24 01/30/24 Unknown acetaminophen 500 mg tablet 1,000 mg (2 x 500 mg) PO TID #0 01/11/24 01/30/24 Unknown (Tylenol Extra Strength) tabs amlodipine 5 mg tablet 10 mg (2 x 5 mg) PO DAILY #0 tabs 01/11/24 01/30/24 Unknown carvedilol 25 mg tablet 25 mg PO BIDM #0 tabs 01/11/24 01/30/24 Unknown clonidine HCl 0.1 mg tablet 0.1 mg PO BID #0 tabs 01/11/24 01/30/24 Unknown clonidine HCl 0.1 mg tablet 0.1 mg PO Q8H PRN #0 tabs 01/11/24 01/30/24 Unknown gabapentin 400 mg capsule 400 mg PO BID #0 caps 01/11/24 01/30/24 Unknown heparin, porcine (PF) 5,000 5,000 unit (0.5 mL) subcut Q8 #0 mL 01/11/24 01/30/24 Unknown unit/0.5 mL injection syringe isosorbide mononitrate 30 mg 30 mg PO QAM #0 tabs 01/11/24 01/30/24 Unknown tablet,extended release 24 hr tramadol 50 mg tablet 50 mg PO Q8H PRN Severe Pain 01/11/24 01/30/24 Unknown (Scale Score 7-10) #0 tabs Active Medications Generic Name Dose Route Start Last Admin Trade Name Freq PRN Reason Stop Dose Admin Acetaminophen 1,000 mg 01/31/24 10:15 02/02/24 13:07 Acetaminophen 500 Mg Tab PO 03/01/24 10:14 1,000 mg Q8 VAN Administration Amlodipine Besylate 10 mg 01/31/24 09:00 02/02/24 09:07 Amlodipine Besylate 5 Mg Tab PO 03/01/24 08:59 10 mg DAILY VAN Administration Aspirin 81 mg 01/31/24 09:00 02/02/24 09:07 Aspirin 81 Mg Ectab PO 03/01/24 08:59 81 mg DAILY VAN Administration Atorvastatin Calcium 20 mg 01/31/24 09:00 02/02/24 09:07 Atorvastatin 20 Mg Tab PO 03/01/24 08:59 20 mg DAILY VAN Administration Calcitriol 0.25 mcg 01/30/24 19:45 01/30/24 20:51 Calcitriol 0.25 Mcg Capsule PO 02/29/24 19:44 0.25 mcg TuTh@0900 VAN Administration Carvedilol 25 mg 01/31/24 08:00 02/02/24 09:07 Carvedilol 25 Mg Tab PO 03/01/24 07:59 25 mg BIDM VAN Administration Clonidine HCl 0.1 mg 01/31/24 09:00 02/02/24 09:15 Clonidine Hcl 0.1 Mg Tab PO 03/01/24 08:59 0.1 mg QAM VAN Administration Fluticasone Propionate 1 sprays 01/31/24 09:00 02/02/24 09:08 Fluticasone Propionate Na Spr 16 Gm Btl NA 03/01/24 08:59 1 sprays DAILY VAN Administration Furosemide 60 mg 01/31/24 09:00 02/02/24 09:15 Furosemide Inj 20 Mg/2 Ml Vial IV 03/01/24 08:59 60 mg DAILY VAN Administration Gabapentin 400 mg 01/30/24 21:00 02/02/24 09:08 Gabapentin 400 Mg Cap PO 02/29/24 20:59 400 mg BID VAN Administration Heparin Sodium (Porcine) 5,000 units 01/30/24 22:00 02/02/24 13:07 Heparin Sod 5,000 Unit/0.5 Ml Vial SQ 02/29/24 21:59 5,000 units Q8 VAN Administration Vancomycin HCl 750 mg/ Sodium 265 mls @ 200 mls/hr 01/31/24 09:00 02/02/24 10:30 Chloride IV 02/07/24 08:59 Infused Q24H VAN Infusion Pantoprazole Sodium 40 mg/ 10 mls @ 5 mls/min 01/31/24 21:00 02/02/24 09:09 Syringe IV 03/01/24 20:59 5 mls/min BID VAN Administration Isosorbide Mononitrate 30 mg 01/31/24 09:00 02/02/24 09:08 Isosorbide [place] Extended Rel 30 Mg Tabcr PO 03/01/24 08:59 30 mg QAM VAN Administration Lorazepam 0.5 mg 01/30/24 19:28 02/01/24 21:05 Lorazepam 0.5 Mg Tab PO 02/29/24 19:27 0.5 mg TID PRN Administration Anxiety Methylprednisolone 4 mg 02/02/24 07:00 02/02/24 09:39 Methylprednisolone 4 Mg Tab PO 02/02/24 18:01 4 mg 0700,1300,1800 VAN Administration Morphine Sulfate 2 mg 01/30/24 19:20 02/01/24 00:26 Morphine Sulfate 2 Mg/Ml Carp IV 02/13/24 19:19 2 mg Q4H PRN Administration Pain Oxycodone HCl 5 mg 01/30/24 19:20 02/02/24 09:15 Oxycodone Hcl Ir 5 Mg Tab (Immediate Release) PO 02/13/24 19:19 5 mg Q6H PRN Administration Pain Potassium Chloride 20 meq 02/01/24 09:00 02/02/24 09:15 Potassium Chloride Crtab 20 Meq Tabcr PO 03/02/24 08:59 20 meq QAM VAN Administration Sodium Chloride 2 sprays 01/31/24 22:57 01/31/24 23:03 Sodium Chloride 0.65% Na Soln 45 Ml ([place]) NA 03/01/24 22:56 2 sprays NOW PRN Administration Dryness Spironolactone 12.5 mg 01/31/24 12:30 02/02/24 09:09 Spironolactone 12.5 Mg Tab PO 03/01/24 12:29 12.5 mg DAILY VAN Administration Trolamine Salicylate 1 appln 02/01/24 14:00 02/02/24 13:07 Trolamine Salicylate 10% Crm 255 Appln/85 Gm Tube EXT 03/02/24 13:59 1 appln TID VAN Administration (2) Hypertension Hypertension type: renovascular hypertension Qualified Code(s): I15.0 - Renovascular hypertension
--- NOTE | 2024-02-03 07:37 | XRay Report ---
SINGLE VIEW CHEST CLINICAL HISTORY: Follow-up congestive heart failure. FINDINGS: An AP, portable, upright chest radiograph is compared to study dated 01/10/2024 and correlat ed with chest CT dated 01/30/2024. The examination is degraded by portable technique and apical lordo tic positioning. A right-sided PICC line is unchanged in position. The heart is enlarged noting ather osclerotic calcification of the thoracic aorta. Pulmonary vascular congestion has improved from previ ous. Small pleural effusions are suspected with dependent atelectasis. No pneumothorax is seen. The s keletal structures are osteopenic. The bony thorax is grossly intact. Degenerative change is noted in the shoulders and spine. IMPRESSION: 1. Cardiomegaly. Pulmonary vascular congestion appears improved from previous. 2. Small pleural effusions. ACT 112: Negative or not required by law. Electronically signed by: Jon Montemayor M.D. 02/03/2024 7:36 AM
--- NOTE | 2024-02-03 08:14 | Cardiology Progress Note ---
Date of Service February 03, 2024 Assessment & Plan (1) Cardiomegaly: (2) (HFpEF) heart failure with preserved ejection fraction: Plan (1) (HFpEF) heart failure with preserved ejection fraction: (2) Hypertension: (3) Sinus pause Plan: * Recent cervical abscess - drained surgically at [facility] * Spinal Stenosis - potential need for lumbar surgery in the future * + 5 second pause * Check TSH * Decrease Coreg to 12.5 mg po BID - plans to wean gradually - pause may be linked to higher dose beta blockers * Continue Telemetry * Please place PADs on patient * K+ goal 4.5-5 * Mag goal >2 * SBP 150's * Increase Aldactone to 25 mg po per day * Patient is moderately volume overloaded - 2-3+ LE edema * Continue to diurese * Lasix 60 mg IV BID * BID electrolytes * Goal SBP 120 mmHg * May need to add Entresto 24/26 mg po BID to current regimen for active SBP management * DVT ppx [facility] Admission and Anticipated Discharge Date Admission Date: January 30, 2024 Subjective Events Overnight: * 5-second pause on telemetry - around 1 pm * Patient did not have any symptoms at the time of the pause Subjective: * No complaints Review of Systems Review of Systems: All systems reviewed & are unremarkable except as noted in HPI & below Physical Exam Physical Exam: Obese JVP 15 cmH20 S1S2 - 2/6 Systolic Murmur CTA B 2+ LE edema Warm and perfusing Bob in place Results & Data Vital Signs (Past 12 Hours) Vital Signs Temp Pulse Resp BP Pulse Ox O2 Del Method O2 Flow Rate 02/03/24 08:06 36.5 C 66 18 177/65 H 95 Nasal Cannula 2 02/03/24 03:44 144/55 H 02/03/24 03:34 36.7 C 67 18 174/69 H 95 Room Air 02/02/24 23:02 36.5 C 64 18 160/70 H 95 Nasal Cannula 2 02/02/24 21:12 Nasal Cannula 2 Laboratory Results 02/03/24 02/03/24 02/03/24 Range/Units 07:51 07:51 07:51 Sodium (136-145) mmol/L Potassium (3.5-5.1) mmol/L Chloride (98-107) mmol/L Carbon Dioxide (21-32) mmol/L Anion Gap (3-11) BUN (6-23) mg/dl Creatinine 1.04 (0.6-1.2) mg/dl Est Cr Clr Drug Dosing 53.4 54.0 ml/min eGFR 55.01 55.65 BUN/Creatinine Ratio 26.0 H (10-20) Glucose 125 H (70-99(Fasting)) mg/dl Calcium 8.6 (8.6-10.3) mg/dl Random Vancomycin 15.4 (10-20) mcg/ml 02/03/24 Range/Units 07:51 Sodium 138 (136-145) mmol/L Potassium 4.1 (3.5-5.1) mmol/L Chloride 103 (98-107) mmol/L Carbon Dioxide 28 (21-32) mmol/L Anion Gap 7 (3-11) BUN 27 H (6-23) mg/dl Creatinine 1.03 (0.6-1.2) mg/dl Est Cr Clr Drug Dosing ml/min eGFR BUN/Creatinine Ratio (10-20) Glucose (70-99(Fasting)) mg/dl Calcium (8.6-10.3) mg/dl Random Vancomycin (10-20) mcg/ml Intake and Output 02/02/24 02/03/24 02/03/24 22:59 06:59 14:59 Output Total 1949 250 1949 Balance -500 / -1040 -250 / -1040 Output: Urine Amount (Catheter) 1949 250 1949 Bob/Indwelling 1949 250 1950 Other: Weight 111.2 kg Weight Measurement Method [facility] Medications Administered Current Inpatient Medications Acetaminophen (Acetaminophen 500 Mg Tab) 1,000 mg PO Q8 [facility] Stop: 03/01/24 10:14 Last Admin: 02/03/24 05:29 Dose: 1,000 mg Al Hydrox/Mg Hydrox/Simethicone (Aluminum/Magnesium Susp 30 Ml Udc) 15 ml PO Q4H PRN PRN Reason: Dyspepsia Stop: 02/29/24 22:31 Amlodipine Besylate (Amlodipine Besylate 5 Mg Tab) 10 mg PO DAILY VAN Stop: 03/01/24 08:59 Last Admin: 02/02/24 09:07 Dose: 10 mg Aspirin (Aspirin 81 Mg Ectab) 81 mg PO DAILY [facility] Stop: 03/01/24 08:59 Last Admin: 02/02/24 09:07 Dose: 81 mg Atorvastatin Calcium (Atorvastatin 20 Mg Tab) 20 mg PO DAILY VAN Stop: 03/01/24 08:59 Last Admin: 02/02/24 09:07 Dose: 20 mg Calcitriol (Calcitriol 0.25 Mcg Capsule) 0.25 mcg PO TuTh@0900 VAN Stop: 02/29/24 19:44 Last Admin: 01/30/24 20:51 Dose: 0.25 mcg Carvedilol (Carvedilol 25 Mg Tab) 25 mg PO BIDM VAN Stop: 03/01/24 07:59 Last Admin: 02/02/24 17:15 Dose: 25 mg Clonidine HCl (Clonidine Hcl 0.1 Mg Tab) 0.1 mg PO QAM VAN Stop: 03/01/24 08:59 Last Admin: 02/02/24 09:15 Dose: 0.1 mg Ferrous Sulfate (Ferrous Sulfate 325 Mg Tab) 325 mg PO QAM VAN Stop: 03/04/24 08:59 Fluticasone Propionate (Fluticasone Propionate Na Spr 16 Gm Btl) 1 sprays NA DAILY VAN Stop: 03/01/24 08:59 Last Admin: 02/02/24 09:08 Dose: 1 sprays Furosemide (Furosemide Inj 20 Mg/2 Ml Vial) 60 mg IV DAILY VAN Stop: 03/01/24 08:59 Last Admin: 02/02/24 09:15 Dose: 60 mg Gabapentin (Gabapentin 400 Mg Cap) 400 mg PO BID VAN Stop: 02/29/24 20:59 Last Admin: 02/02/24 20:44 Dose: 400 mg Heparin Sodium (Beef Lung) (Heparin 10 Unit/Ml 5 Ml Flush) 5 ml FLUSH PRN PRN PRN Reason: Flush Stop: 03/01/24 04:10 Heparin Sodium (Porcine) (Heparin Sod 5,000 Unit/0.5 Ml Vial) 5,000 units SQ Q8 VAN Stop: 02/29/24 21:59 Last Admin: 02/03/24 05:27 Dose: 5,000 units Vancomycin HCl 750 mg/ Sodium (Chloride) 265 mls @ 200 mls/hr IV Q24H VAN Stop: 02/07/24 08:59 Last Infusion: 02/02/24 10:30 Dose: Infused Pantoprazole Sodium 40 mg/ (Syringe) 10 mls @ 5 mls/min IV BID VAN Stop: 03/01/24 20:59 Last Admin: 02/02/24 20:45 Dose: 5 mls/min Isosorbide Mononitrate (Isosorbide [place] Extended Rel 30 Mg Tabcr) 30 mg PO QAM VAN Stop: 03/01/24 08:59 Last Admin: 02/02/24 09:08 Dose: 30 mg Lorazepam (Lorazepam 0.5 Mg Tab) 0.5 mg PO TID PRN PRN Reason: Anxiety Stop: 02/29/24 19:27 Last Admin: 02/02/24 22:18 Dose: 0.5 mg Magnesium Hydroxide (Magnesium Hydroxide Susp 30 Ml Udc) 30 ml PO Q12H PRN PRN Reason: Constipation Stop: 02/29/24 22:31 Methylprednisolone (Methylprednisolone 4 Mg Tab) 4 mg PO 0700,1300,1800,2100 [facility] Stop: 02/03/24 21:01 Methylprednisolone (Methylprednisolone 4 Mg Tab) 4 mg PO 0700,1300,2100 [facility] Stop: 02/04/24 21:01 Methylprednisolone (Methylprednisolone 4 Mg Tab) 4 mg PO 0700,2100 [facility] Stop: 02/05/24 21:01 Methylprednisolone (Methylprednisolone 4 Mg Tab) 4 mg PO 0700 [facility] Stop: 02/06/24 07:01 Miscellaneous Information (Vancomycin Consult Active) 1 each N/A UD PRN PRN Reason: Consult Stop: 02/29/24 17:26 Morphine Sulfate (Morphine Sulfate 2 Mg/Ml Carp) 2 mg IV Q4H PRN PRN Reason: Pain Stop: 02/13/24 19:19 Last Admin: 02/01/24 00:26 Dose: 2 mg Ondansetron HCl (Ondansetron Inj 2 Mg/Ml 2 Ml Vial) 4 mg IV Q6H PRN PRN Reason: Nausea Stop: 02/29/24 22:31 Oxycodone HCl (Oxycodone Hcl Ir 5 Mg Tab (Immediate Release)) 5 mg PO Q6H PRN PRN Reason: Pain Stop: 02/13/24 19:19 Last Admin: 02/03/24 03:45 Dose: 5 mg Polyethylene Glycol (Polyethylene (Miralax) 17 Gm Pack) 17 gm PO DAILY PRN PRN Reason: Constipation Stop: 02/29/24 22:31 Potassium Chloride (Potassium Chloride Crtab 20 Meq Tabcr) 20 meq PO QAM VAN Stop: 03/02/24 08:59 Last Admin: 02/02/24 09:15 Dose: 20 meq Sodium Chloride (Sodium Chloride 0.65% Na Soln 45 Ml ([place])) 2 sprays NA NOW PRN PRN Reason: Dryness Stop: 03/01/24 22:56 Last Admin: 01/31/24 23:03 Dose: 2 sprays Spironolactone (Spironolactone 12.5 Mg Tab) 12.5 mg PO DAILY VAN Stop: 03/01/24 12:29 Last Admin: 02/02/24 09:09 Dose: 12.5 mg Trolamine Salicylate (Trolamine Salicylate 10% Crm 255 Appln/85 Gm Tube) 1 appln EXT TID VAN Stop: 03/02/24 13:59 Last Admin: 02/02/24 20:46 Dose: 1 appln
[2024-02-03] MEDS: methylPREDNISolone 4 MG TAB PO SCH (09:02)
[2024-02-03] MEDS: FERROUS SULFATE 325 MG TAB PO SCH (09:03)
[2024-02-03] MEDS: VANCOMYCIN LEVEL ONE (09:04)
[2024-02-03 09:09] LABS: Calcium 8.6 mg/dl (8.6-10.3); Creatinine Clr Calc Pharmacy 53.4 ml/min; Potassium 4.1 mmol/L (3.5-5.1)
--- NOTE | 2024-02-03 10:17 | Pain Management Consultation ---
Date of Consultation February 03, 2024 Assessment & Plan (1) Neurogenic claudication due to lumbar spinal stenosis: (2) Sacral pressure sore: (3) Neuropathy: (4) Morbid obesity: (5) Epidural abscess: Plan 1. Patient states she she is comfortable with her current level of pain control aside from burning pain in her sacral region. Recommend increasing her gabapentin to 800mg AM 400mg lunch 400mg HS to minimize neuropathic component. May consider utilization of SNRI or increased dose of clonidine up to 0.1mg PO TID in the future should she continue to have pain. Agree with opiate dosing currently. No plans for any interventional pain procedures at this time. 2. Recommend continuation of antibiotics under the direction of ID and neurosurgery to treat cervical epidural abscess. 3. Recommend overall reconditioning when able. 4. Please call with any questions, pain management will sign off History of Present Illness Attending Physician: Autumn Emerson MD History of Present Illness 78 year old female with recent cervical epidural abscess (December 2023) undergoing C2-6 debridement at [facility] neurosurgery on vancomycin until 02/22/2024. She presented to the [facility] emergency room on 01/30/2024 with increasing low back pain. Lumbar spine MRI noted for severe multilevel lumbar spinal stenosis worst at L2-3 L3-4. On examination today she reports that her pain is well-controlled aside from burning pain over her sacral region. She has utilized 3 doses of oxycodone 5 mg p.o. every 6 as needed and no doses of morphine in the last 24 hours. Additionally she is utilized her typical home dosing of gabapentin 800 mg a.m. and 400 mg p.m. along with Medrol Dosepak and Tylenol 100 mg p.o. every 8. She reports pain ranges between 4-7 out of 10 currently 4 out of 10. She denies any change in motor weakness stating that she does not have full strength over her left upper or lower extremity. She reports some weakness in her right lower extremity. She denies change in bowel or bladder incontinence, she denies any saddle anesthesia, fever, chills, night sweats. She denies other constitutional complaints. She reports she has a bowel movement approximately every 2 to 3 days without difficulty. Pain Assessment Full Body Front + Back: 2 1. [facility] Combined Pain Scale: 4-Mild to Mod - Interrupts ADLs. Decrease in job performance Pain scale - at its best (0-10): 4 Pain scale - at its worst (0-10): 7 Allergies Allergy/AdvReac Type Severity Reaction Status Date / Time allopurinol Allergy Mild RASH Verified 10/01/19 09:44 Penicillins Allergy Mild HIVES Verified 10/01/19 09:44 Bactrim Allergy Unknown ANXIETY Verified 09/26/17 08:37 AND HALLUCINATION sulfamethoxazole AdvReac Intermediate ANXIETY Verified 03/23/21 20:14 AND HALLUCINATION trimethoprim AdvReac Intermediate ANXIETY Verified 03/23/21 20:14 AND HALLUCINATION Home Medications Medication Instructions Recorded Confirmed Type aspirin 81 mg tablet,delayed 81 mg PO DAILY 01/06/24 01/30/24 History release atorvastatin 20 mg tablet 20 mg PO DAILY 01/06/24 01/30/24 History calcitriol 0.25 mcg capsule 0.25 mcg PO UD 01/06/24 01/30/24 History fluticasone propionate 50 1 spray intranasal DAILY 01/06/24 01/30/24 History mcg/actuation nasal spray,suspension lorazepam 0.5 mg tablet 0.5 mg PO TID PRN Anxiety 01/06/24 01/30/24 History semaglutide 1 mg/dose (4 mg/3 mL) 1 mg subcut WK 01/06/24 01/30/24 History subcutaneous pen injector (Ozempic) furosemide 20 mg tablet 60 mg PO DAILY 01/07/24 01/30/24 History losartan 100 mg tablet 100 mg PO DAILY 01/07/24 01/30/24 History omeprazole 20 mg capsule,delayed 20 mg PO DAILY 01/07/24 01/30/24 History release Vancomycin Consult Active [Consult] 1 ea Not Applicable UD PRN ##0 01/11/24 01/30/24 Rx acetaminophen 500 mg tablet 1,000 mg (2 x 500 mg) PO TID #0 01/11/24 01/30/24 Rx (Tylenol Extra Strength) tabs amlodipine 5 mg tablet 10 mg (2 x 5 mg) PO DAILY #0 tabs 01/11/24 01/30/24 Rx carvedilol 25 mg tablet 25 mg PO BIDM #0 tabs 01/11/24 01/30/24 Rx clonidine HCl 0.1 mg tablet 0.1 mg PO BID #0 tabs 01/11/24 01/30/24 Rx clonidine HCl 0.1 mg tablet 0.1 mg PO Q8H PRN #0 tabs 01/11/24 01/30/24 Rx gabapentin 400 mg capsule 400 mg PO BID #0 caps 01/11/24 01/30/24 Rx heparin, porcine (PF) 5,000 5,000 unit (0.5 mL) subcut Q8 #0 mL 01/11/24 01/30/24 Rx unit/0.5 mL injection syringe isosorbide mononitrate 30 mg 30 mg PO QAM #0 tabs 01/11/24 01/30/24 Rx tablet,extended release 24 hr tramadol 50 mg tablet 50 mg PO Q8H PRN Severe Pain 01/11/24 01/30/24 Rx (Scale Score 7-10) #0 tabs Pain History Pain Intensity Pain scale - at its best (0-10): 4 Pain scale - at its worst (0-10): 7 Patient History Medical History (Updated 02/03/24 @ 10:28 by Karen Bhatti DO) Neuropathy Demand ischemia of myocardium Paroxysmal atrial fibrillation with rapid ventricular response Intraductal papilloma of breast left Renal artery stenosis status post bilateral renal artery stenting Cancer uterine s/p hysterectomy (no chemo/XRT) Chronic back pain Gout Chronic kidney disease stage III (follows with Dr. Okeefe) GERD (gastroesophageal reflux disease) controlled Diabetes mellitus, type 2 Hypertension Hyperlipidemia Surgical History History of renal stent RIGHT/LEFT History of cataract surgery R/L History of hysterectomy TOTAL History of bilateral tubal ligation History of dilatation and curettage X 2 History of hand surgery RIGHT CYST History of cholecystectomy Fusion of spine LUMBAR Family History Brother Family history of diabetes mellitus Mother Family hx of colon cancer Social History Smoking Status: Never smoker Second Hand Exposure: Yes (SPOUSE SMOKES); Do You Dip or Chew Tobacco: No; Hx Alcohol Use: No Hx Substance Use: No Preferred Language: German Communication Ability: Effective Manager Division Required: No Beliefs That Will Affect Care: None Current Living Situation: Detention Current Living Situation Comment: [facility] Other Information That Helps Us Care for You: No Feels Safe at Home: Yes Safety Concerns: Feels Safe At This Time Assistive Devices: Cane and Walker Physical Exam 2 Physical Exam: Constitutional: Well-developed, well-nourished, deconditioned and morbidly obese Psych: Awake, alert, and oriented 3 with normal affect and mood. Recent memory appears grossly intact Eyes: Pupils are equally round and reactive to light with normal size pupils, eyelids appear normal Ear, nose, mouth, and throat: Moist nasal and oral membranes, lips and tongues appear normal, no external ear abnormalities are noted Neck: The trachea is midline without deviation and no thyromegaly is noted Respiratory: Normal respiratory effort without distress, no audible wheezes or rhonchi CV: Normal S1 and S2, warm distal extremities Chest: Deferred GI/abdomen: Soft, slightly distended, non-tender without guarding Musculoskeletal: Head is normocephalic and atraumatic, gait not observed. Patient is able to move in bed with some noted difficulty Cervical: Strength: Strength is equal on the left with 5/5 strength right 4+/5 in all planes Sensation of upper extremities: Intact bilaterally Lumbar: Lordotic curve: decreased lordotic curve Strength: Strength is 4+/5 left 3+/5 right (pt states her baseline) in all planes Sensation of lower extremities: Intact bilaterally Pathologic reflexes noted: None Skin: No rashes, lesions, ulcers, or induration noted Neuro: No nystagmus noted, the tongue is midline, the patient is able to rotate their head bilaterally : Deferred Results (Pain Clinic) Diagnostic Review MRI: non enhanced, reports reviewed and findings discussed with patient MRI Findings: 01/31/24 MR lumbar spine wo con CLINICAL HISTORY: 78 years-old Female with back pain. Acute low back pain with sepsis. Clinical concern for discitis/osteomyelitis. Large epidural abscess of the cervical spine seen on recent imaging. COMPARISON: CTA chest 01/30/2024, MR lumbar spine 01/06/2024. TECHNIQUE: Multiplanar, multi sequence MRI of the lumbar spine was performed without intravenous contrast. FINDINGS: Motion degraded exam. Mild lumbar levoscoliosis. No paraspinal fluid collections. There is moderate atrophy of the paraspinal musculature. Trace pelvic ascites with diffuse subcutaneous edema within the posterior back. Conus medullaris terminates at L1-L2. Small amount of fluid signal within the T11-T12 disc space is similar to prior. No endplate erosions. This may be on a degenerative basis. There is progressively worsened fluid signal within the L2-L3 and L3-L4 disc spaces. Marrow edema at L3-L4 is again noted with areas of mild endplate irregularity. Mild paravertebral edema. Minimal fluid signal within the L4-L5 and L5-S1 disc spaces is likely degenerative related. T11-T12: Moderate disc space narrowing with circumferential disc osteophyte complex and moderate facet arthrosis. There is moderate central canal stenosis with AP dimension of the thecal sac measuring 6 mm. Severe right with moderate left foraminal stenosis. Findings are unchanged T12-L1: No central canal or neural foraminal stenosis. L1-L2: No central canal or neural foraminal stenosis. L2-L3: Moderate disc space narrowing with circumferential disc osteophyte complex. Ligamentum flavum thickening with advanced facet arthrosis. There is unchanged severe central canal stenosis with AP dimension of the thecal sac measuring 5 mm. Severe right with moderate left foraminal narrowing is unchanged. L3-L4: Mild to moderate intervertebral disc space narrowing. There is moderate spondylotic spurring with circumferential annular disc bulging. Advanced facet arthrosis with small facet effusions. Severe central canal stenosis with AP dimension of the thecal sac measuring 4 mm. Severe narrowing of the lateral recesses. There is moderate to severe narrowing of the neural foramen. There is an unchanged T1 and T2 hypointense 10 x 6 x 9 mm structure on image 19 series 7 and image 8 series 3 which is within the right paracentral distribution posterior to the mid L3 vertebral body suggestive of a sequestered disc fragment versus disc extrusion with superior migration. L4-L5: Severe intervertebral disc space narrowing with unchanged grade 1 anterolisthesis. Spondylotic spurring with circumferential annular disc bulging. Central/left paracentral disc extrusion with superior migration measures 10 x 5 x 9 mm. Ligamentum flavum thickening with advanced facet arthrosis. There is severe left lateral recess narrowing. Moderate to severe central canal stenosis with AP dimension of the thecal sac measuring 6 mm. Moderate to severe left with moderate right foraminal narrowing is unchanged. L5-S1: Moderate to severe intervertebral disc space narrowing with circumferential disc osteophyte complex. Ligamentum flavum thickening with moderate facet arthrosis. Mild central canal stenosis with AP dimension of the thecal sac measuring 8 mm. Severe narrowing of the lateral recesses. Moderate bilateral foraminal narrowing. IMPRESSION: 1. There is progressive fluid signal within the L2-L3 and L3-L4 disc spaces compared to the MRI study from 01/06/2024 which May represent early changes of discitis/osteomyelitis. There is unchanged marrow edema at L3-L4 with mildly progressive paravertebral edema. 2. No epidural or paraspinal abscess identified on this noncontrast study. 3. Discogenic degeneration with spondylotic spurring and facet arthrosis as above again resulting in multilevel central canal and foraminal narrowing. ACT 112: Negative or not required by law. The above report was generated using voice recognition software. It may contain grammatical, syntax or spelling errors. Dictated: 01/31/2024 12:49 PM Transcribed: 01/31/2024 1:28 PM Juan Carlos [id number] MODESTA_Pradip [id number] Electronically signed by: Gustavo Cahrles M.D. 01/31/2024 4:44 PM 01/11/24 MR cervical spine wo/w con HISTORY: 78 years-old Female severe neck pain, r/o abscess acute severe neck pain COMPARISON: CTA neck 01/08/2024 TECHNIQUE: Multiplanar multisequence MRI of the cervical spine was obtained with and without IV contrast. FINDINGS: Motion degraded exam. There is a large peripherally enhancing posterior epidural fluid collection extending from the skull base into the upper thoracic spine outside the [id number]. This measures up to at least 15 cm in length and measures up to 2.3 x 1.0 cm in transverse and AP dimension, largest at C2-C6.T here is considerable posterior mass effect upon the majority of the cervical spinal cord and upper thoracic spinal cord with severe narrowing of the central canal extending from C2-C3 into the visualized upper thoracic spine. There is moderate edema throughout the posterior paraspinal musculature with upper thoracic prominent joint effusions. There is partially imaged marrow edema involving the T3 vertebral body which was also noted on prior. No evidence of acute cervical discitis/osteomyelitis. Unchanged T1 vertebral body hemangioma. Neural foramen are not well seen secondary to motion dictation. Normal signal the cervical spinal cord. C2-C3: Mild intervertebral disc space narrowing. Posterior annular disc bulging with moderate facet arthrosis. Posterior epidural fluid collection also noted. Constellation of findings cause moderate central canal stenosis, AP dimension of the thecal sac measuring 5 mm. Mild bilateral foraminal narrowing. C3-C4: Mild intervertebral disc space narrowing. Vertebral hypertrophy with small posterior annular disc bulge. Posterior epidural fluid collection. Moderate facet arthrosis. AP dimension of the thecal sac measures 4 mm. Severe central canal stenosis with mild right and moderate left foraminal narrowing. C4-C5: Severe central canal stenosis, AP dimension of the thecal sac measuring 4 mm. Moderate right with [id number] left foraminal narrowing. C5-C6: Severe intervertebral disc space narrowing and posterior disc osteophyte complex. Posterior epidural fluid collection with moderate facet arthrosis. Severe central canal stenosis, AP dimension of the thecal sac measuring 4 mm. Severe right with moderate left foraminal narrowing. C6-C7: Moderate to severe intervertebral disc space narrowing with posterior disc osteophyte complex. Posterior epidural fluid collection with moderate facet arthrosis. AP dimension of the thecal sac measures 4 mm. Severe central canal stenosis with severe right and moderate left foraminal narrowing. C7-T1: Mild intervertebral disc space narrowing with moderate facet arthrosis. AP dimension of thecal sac measures 4 mm. Severe intervertebral disc space narrowing with mild right and moderate left foraminal narrowing. IMPRESSION: 1. There is a large peripherally enhancing posterior epidural fluid collection extending from the C1-C2 articulation into the upper thoracic spine, outside the [id number]. This measures up to 15 cm in length and is suggestive of an epidural abscess. 2. Resultant severe multilevel central canal stenosis with normal signal of the visualized cervical and upper thoracic spinal cord. 3. Multilevel degenerative neural foraminal narrowing. 4. There is diffuse edema within the posterior paraspinal musculature. Correlate clinically to exclude myositis. 5. Facet effusions are most pronounced in the upper thoracic spine and there is also a small effusion at C1-C2. These findings may be on a degenerative basis or present infectious arthropathy. 6. No evidence of acute cervical spine discitis/osteomyelitis. Findings were discussed with Autumn Emerson on 01/11/2024 at 3:25 PM ACT 112: Negative or not required by law. The above report was generated using voice recognition software. It may contain grammatical, syntax or spelling errors. Electronically signed by: Gustavo Charles M.D. 01/11/2024 3:29 PM Dictated: 01/11/24 1512 Transcribed: 01/11/[address]: enhanced and reports reviewed CT Findings: 01/30/24 CT lumbar spine w con CLINICAL HISTORY: lower back pain COMPARISON STUDY: Lumbar spine CT April 20, 2021. Lumbar spine MRI January 06, 2024. TECHNIQUE: Axial images of the lumbar spine were obtained following intravenous menstruation 118 cc of Optiray 320 IV. Sagittal and coronal reconstructions were viewed. Automated exposure control was utilized for the study. A dose lowering technique was utilized adhering to the principles of ALARA. FINDINGS: For purposes of numbering on this exam, the L5-S1 disc space is assigned to axial image 245 of 368. Vertebral body heights are maintained. No lumbar spine fractures are identified. There is severe multilevel facet arthrosis and moderate to severe multilevel disc space narrowing with endplate osteophytosis. Evaluation of the central canal and neural foramen is significant, given artifact and CT technique. Paravertebral soft tissues are unremarkable by CT. No suspicious osseous lesions are present. Multilevel endplate irregularity is likely degenerative. There is vacuum disc phenomenon at the L3-L4, L4-L5 and L5-S1 levels. Slight anterolisthesis of L3 on L4 and L4 and L5 is unchanged from earlier exam. Please note that the abdomen and pelvis CT will be reported separately. IMPRESSION: 1. No lumbar spine fractures. 2. Severe multilevel degenerative disc disease and facet arthrosis within the lumbar spine. 3. Suboptimal evaluation of the central canal given CT technique and artifact. If concern for epidural process, MRI is recommended. ACT 112: Negative or not required by law. Electronically signed by: Misha Wilkinson M.D. 01/30/2024 4:25 PM
--- NOTE | 2024-02-03 11:00 | Pharmacy Report ---
Pharmacy PK ABX Note - Date of Service February 03, 2024 - Assessment and Plan Assessment 02/02 * Reviewed vancomycin level, predicting therapeutic AUC/RENAN, continue current regimen 01/30 * Ms Escobar is a 78 year old F receiving IV vancomycin for treatment of an epidural abscess. * Pt was admitted from 01/05-01/10 with sepsis/bacteremia and was transferred to [facility] on 01/10 where she underwent C2-C6 debridement w/ neurosurgery. * Pertinent microbiologic data includes: cultures from [facility] growing MRSA. * Other significant PMH includes DM, CHF, CKD stage III * Day ~20 of antimicrobial therapy. Per ID, vanc is to continue until 02/21. Plan Vancomycin * Vanc was started at [facility] and managed per ID. Pt has been receiving 750mg IV q24h. * Trough this AM 15.4mcg/mL continue vanc 750mg IV q24h. Regimen is predicted to achieve target AUC/RENAN of 400-600 mg/L.hr * Will consider checking another vanc level in 2-3 days if pt remains hospitalized Pharmacy will continue to follow and will adjust dose/frequency as necessary. Thank you. Pharmacy has transitioned to AUC monitoring for vancomycin. AUC/RENAN is the preferred PK/PD target and is associated with decreased risk of nephrotoxicity compared to traditional trough targets.
--- NOTE | 2024-02-03 11:49 | Hospitalist Progress Note ---
Date of Service February 03, 2024 Assessment & Plan (1) Acute back pain: (2) Hypertension: (3) Diabetes: (4) Hyperlipidemia: (5) Morbid obesity: (6) (HFpEF) heart failure with preserved ejection fraction: (7) Epidural abscess: (8) Anemia: Plan Ms. 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 Patient's postop hgb has ranged Her Hgb was low 7.2-8.2. She was recently admitted to [facility] from 01/06/24 - 01/11/24 and was found to have sepsis/bacteremia and was transferred [place] 01[place]10 [place] [facility] [place] underwent C2-C6 debridement under the care of Dr. No with neurosurgery. Cultures grew MRSA; was started on Vancomycin per ID which is to continue @ 750 mg IV daily until 02/21. She has a planned Neurosurgery f/u [place] [facility] [place]. She has been bedbound since 01/06/24. All PT/OT has gotten her up to ambulate, but she can not get up without assistance and she is developing a pressure ulcer from being sedentary. Patient is now s/p 3 days of IV venofer, will transition to PO supplementation. Reviewed Ortho spine recommendations: no plan for surgery given active treatment for infection Called Transfer Center to discuss with Neurosurgery at [place]. Concern being patient's inability to move 2/2 pain as well as dense numbness and lack of sensation to cold. Spoke to Dr. Villanueva who states he cannot be sure and stated if concerned can send patient to [facility] [place]. Per outpatient charts, patient with 2/5 strength in LLE during postop at [place] (not too dissimlar to exam here). There was intent to ensure transfer as exam and symptoms of patient's pain and central canal stenosis was alarming to not only this appeals writer, but also Pain Mgmt and Ortho spine; however, upon posing this to patient she refused as she states she doesnt think she would "survive" another surgery. She states she wishes to return to rehab when ready and keep her 02/[address] No[address] To further complicate course, patient with pause overnight on tele. Multiple medication adjustments appreciated. #Neurogenic claudication 2/2 lumbar stenosis #Ambulatory dysfunction #Moderate lumbar spinal stenosis -lumbar spine CT: No acute fractures. Severe multilevel degenerative disc disease and facet arthrosis within the lumbar spine. Suboptimal evaluation of the central canal MRI severe multilevel lumbar spinal stenosis with spondylolisthesis Scheduled tylenol q8 Oxy prn severe pain no current surgical candidate 2/2 tx for recent epidural abscess Medrol dose sobia today pain managment consult: optimize regimen or limited until procedure? -Increased gabapenting to TID -Increased clonidine to BID for BP control and pain augmentation after discussion with Dr Bhatti PT/OT, will need to return to rehab #Sacral pressure wounds, POA wound care to stage and eval air mattress ordered #Acute hypoxic resp failure 2/2 pulm edema #Sinus pause #Acute on chronic heart failure with preserved EF #HTN: Chronic Takes Lasix 80 mg daily; this has been on hold due to renal function 01/09/24 DUANE: No evidence of a valvular vegetation. Small, incidental PFO noted. EF 55-60%. Cardiology following patient, reviewed recommendations -Increase IV lasix to 60mg IV BID -Continue tele -Will order repeat tsh in am -BMP q12 -Reduced coreg to 12.5mg 2/ pause -Increased spironolactone -Continue home imdur -consider d/c amlodipine iso fluid retention #Acute on chronic anemia #Iron deficiency Acute T/C done and blood consent signed Likely multifactorial iso critical illness, noted iron deficiency PPI IV BID , FOBT ordered not collected completed 3 days of IV venofer start daily iron tablet #Recent Epidural Abscess s/p c2-c6 debridement #Recent MRSA bacteremia on usp antimicrobial therapy Recent transfer on 01/10 to [facility] where she underwent C2-C6 debridement under the care of Dr. No with neurosurgery Cultures grew MRSA; was started on Vancomycin per ID which is to continue @ 750 mg IV daily until 02/21. Last Vanco level drawn yesterday; discussed with pharmacy Neurosurgery f/u at [facility] [place]11 Continue Vancomycin IV #Paroxysmal Atrial fibrillation: No prior history of AF, likely iso severe illness Continue ASA Metoprolol transitioned to Coreg during last admission, currently 25mg BID; reducing dose to 12.5mg bid today given sinus pause Disposition: PCP: Dr. Clarke Code Status: Full VTE Prophylaxis: Heparin SQ Admission and Anticipated Discharge Date Admission Date: January 30, 2024 Subjective NAEO 45 minutes spend at bedside talking about patient's neurologic symptoms. Patient states prior to "sickness" referring to abscesses, she was able to ambulate with a walker, sit up and assist herself. She now states that her left leg is heavy, numb, and doesn't feel secure, however, her pain is chronic--but the LLE symptoms are newer After attempting to discuss transfer given neurologic issues and to facilitate eval by team who performed procedure patient states that she "doesn't want to transfer because even if [she] is offered surgery, [she] doesnt feel like[she] wants it." Patient states she just wants to follow up at her outpatient appointment and declines transfer to [place]. Tele with pause overnight, sleeping. Physical Exam Constitutional: WD/WN, vitals as above laying supine in bed Respiratory: normal respiratory effort, lungs clear to auscultation Results & Data Results & Data Vital Signs (Past 12 Hours) Vital Signs Temp Pulse Resp BP Pulse Ox O2 Del Method O2 Flow Rate 02/03/24 11:39 36.8 C 62 20 152/66 H 96 Nasal Cannula 2 02/03/24 10:48 Nasal Cannula 2 02/03/24 08:06 36.5 C 66 18 177/65 H 95 Nasal Cannula 2 02/03/24 03:44 144/55 H 02/03/24 03:34 36.7 C 67 18 174/69 H 95 Room Air Laboratory Results [facility] 02/03/24 02/03/24 07:51 07:51 Sodium 138 Potassium 4.1 Chloride 103 Carbon Dioxide 28 BUN 27 H Creatinine 1.03 1.04 Glucose 125 H Calcium 8.6 Medications Administered Home Medications Medication Instructions Recorded Confirmed Last Taken aspirin 81 mg tablet,delayed 81 mg PO DAILY 01/06/24 01/30/24 Unknown release atorvastatin 20 mg tablet 20 mg PO DAILY 01/06/24 01/30/24 Unknown calcitriol 0.25 mcg capsule 0.25 mcg PO UD 01/06/24 01/30/24 Unknown fluticasone propionate 50 1 spray intranasal DAILY 01/06/24 01/30/24 Unknown mcg/actuation nasal spray,suspension lorazepam 0.5 mg tablet 0.5 mg PO TID PRN Anxiety 01/06/24 01/30/24 Unknown semaglutide 1 mg/dose (4 mg/3 mL) 1 mg subcut WK 01/06/24 01/30/24 Unknown subcutaneous pen injector (Ozempic) furosemide 20 mg tablet 60 mg PO DAILY 01/07/24 01/30/24 Unknown losartan 100 mg tablet 100 mg PO DAILY 01/07/24 01/30/24 Unknown omeprazole 20 mg capsule,delayed 20 mg PO DAILY 01/07/24 01/30/24 Unknown release Vancomycin Consult Active [Consult] 1 ea Not Applicable UD PRN ##0 01/11/24 01/30/24 Unknown acetaminophen 500 mg tablet 1,000 mg (2 x 500 mg) PO TID #0 01/11/24 01/30/24 Unknown (Tylenol Extra Strength) tabs amlodipine 5 mg tablet 10 mg (2 x 5 mg) PO DAILY #0 tabs 01/11/24 01/30/24 Unknown carvedilol 25 mg tablet 25 mg PO BIDM #0 tabs 01/11/24 01/30/24 Unknown clonidine HCl 0.1 mg tablet 0.1 mg PO BID #0 tabs 01/11/24 01/30/24 Unknown clonidine HCl 0.1 mg tablet 0.1 mg PO Q8H PRN #0 tabs 01/11/24 01/30/24 Unknown gabapentin 400 mg capsule 400 mg PO BID #0 caps 01/11/24 01/30/24 Unknown heparin, porcine (PF) 5,000 5,000 unit (0.5 mL) subcut Q8 #0 mL 01/11/24 01/30/24 Unknown unit/0.5 mL injection syringe isosorbide mononitrate 30 mg 30 mg PO QAM #0 tabs 01/11/24 01/30/24 Unknown tablet,extended release 24 hr tramadol 50 mg tablet 50 mg PO Q8H PRN Severe Pain 01/11/24 01/30/24 Unknown (Scale Score 7-10) #0 tabs Active Medications Generic Name Dose Route Start Last Admin Trade Name Freq PRN Reason Stop Dose Admin Acetaminophen 1,000 mg 01/31/24 10:15 02/03/24 13:42 Acetaminophen 500 Mg Tab PO 03/01/24 10:14 1,000 mg Q8 VAN Administration Amlodipine Besylate 10 mg 01/31/24 09:00 02/03/24 09:02 Amlodipine Besylate 5 Mg Tab PO 03/01/24 08:59 10 mg DAILY VAN Administration Aspirin 81 mg 01/31/24 09:00 02/03/24 09:02 Aspirin 81 Mg Ectab PO 03/01/24 08:59 81 mg DAILY VAN Administration Atorvastatin Calcium 20 mg 01/31/24 09:00 02/03/24 09:02 Atorvastatin 20 Mg Tab PO 03/01/24 08:59 20 mg DAILY VAN Administration Calcitriol 0.25 mcg 01/30/24 19:45 01/30/24 20:51 Calcitriol 0.25 Mcg Capsule PO 02/29/24 19:44 0.25 mcg TuTh@0900 VAN Administration Ferrous Sulfate 325 mg 02/03/24 09:00 02/03/24 09:03 Ferrous Sulfate 325 Mg Tab PO 03/04/24 08:59 325 mg QAM VAN Administration Fluticasone Propionate 1 sprays 01/31/24 09:00 02/03/24 09:03 Fluticasone Propionate Na Spr 16 Gm Btl NA 03/01/24 08:59 1 sprays DAILY VAN Administration Gabapentin 400 mg 02/03/24 14:00 02/03/24 13:42 Gabapentin 400 Mg Cap PO 03/04/24 13:59 400 mg TID VAN Administration Heparin Sodium (Porcine) 5,000 units 01/30/24 22:00 02/03/24 13:42 Heparin Sod 5,000 Unit/0.5 Ml Vial SQ 02/29/24 21:59 5,000 units Q8 VAN Administration Vancomycin HCl 750 mg/ Sodium 265 mls @ 200 mls/hr 01/31/24 09:00 02/03/24 10:26 Chloride IV 02/22/24 10:59 Infused Q24H VAN Infusion Pantoprazole Sodium 40 mg/ 10 mls @ 5 mls/min 01/31/24 21:00 02/03/24 09:03 Syringe IV 02/04/24 09:01 5 mls/min BID VAN Administration Isosorbide Mononitrate 30 mg 01/31/24 09:00 02/03/24 09:03 Isosorbide [place] Extended Rel 30 Mg Tabcr PO 03/01/24 08:59 30 mg QAM VAN Administration Lorazepam 0.5 mg 01/30/24 19:28 02/02/24 22:18 Lorazepam 0.5 Mg Tab PO 02/29/24 19:27 0.5 mg TID PRN Administration Anxiety Methylprednisolone 4 mg 02/03/24 07:00 02/03/24 13:42 Methylprednisolone 4 Mg Tab PO 02/03/24 21:01 4 mg 0700,1300,1800,2100 VAN Administration Morphine Sulfate 2 mg 01/30/24 19:20 02/01/24 00:26 Morphine Sulfate 2 Mg/Ml Carp IV 02/13/24 19:19 2 mg Q4H PRN Administration Pain Oxycodone HCl 5 mg 01/30/24 19:20 02/03/24 09:02 Oxycodone Hcl Ir 5 Mg Tab (Immediate Release) PO 02/13/24 19:19 5 mg Q6H PRN Administration Pain Potassium Chloride 20 meq 02/01/24 09:00 02/03/24 09:03 Potassium Chloride Crtab 20 Meq Tabcr PO 03/02/24 08:59 20 meq QAM VAN Administration Sodium Chloride 2 sprays 01/31/24 22:57 01/31/24 23:03 Sodium Chloride 0.65% Na Soln 45 Ml ([place]) NA 03/01/24 22:56 2 sprays NOW PRN Administration Dryness Trolamine Salicylate 1 appln 02/01/24 14:00 02/03/24 13:43 Trolamine Salicylate 10% Crm 255 Appln/85 Gm Tube EXT 03/02/24 13:59 1 appln TID VAN Administration (2) Hypertension Hypertension type: renovascular hypertension Qualified Code(s): I15.0 - Renovascular hypertension
[2024-02-03] MEDS: GABAPENTIN 400 MG CAP PO SCH (13:42)
[2024-02-03 16:37] LABS: Calcium 8.5 mg/dl (8.6-10.3); Creatinine Clr Calc Pharmacy 49.6 ml/min; Magnesium 1.6 mg/dl (1.7-2.4); Potassium 4.1 mmol/L (3.5-5.1)
[2024-02-03] MEDS: carvediloL 12.5 MG TAB PO SCH (16:54)
[2024-02-03] MEDS: FUROSEMIDE 40 MG/4 ML VIAL IV SCH (22:20)
[2024-02-03] MEDS: cloNIDine HCL 0.1 MG TAB PO SCH (22:21)
[2024-02-03] MEDS: MAGNESIUM CHLORIDE W/CALCIUM 64MG DELAYED REL TAB PO SCH (22:23)
[2024-02-04 07:22] LABS: BUN Creatinine Ratio 30.6 (10-20); Calcium 8.8 mg/dl (8.6-10.3); Creatinine Clr Calc Pharmacy 51.7 ml/min; Magnesium 1.7 mg/dl (1.7-2.4); Potassium 3.9 mmol/L (3.5-5.1)
--- NOTE | 2024-02-04 08:07 | Cardiology Progress Note ---
Date of Service February 04, 2024 Assessment & Plan (1) Cardiomegaly: (2) (HFpEF) heart failure with preserved ejection fraction: Plan (1) (HFpEF) heart failure with preserved ejection fraction: (2) Hypertension: (3) Sinus pause Plan: * Recent cervical abscess - drained surgically at [facility] [place] * Spinal Stenosis - potential need for lumbar surgery in the future * + 5 second pause * TSH - 1.8 * Decrease Coreg to 6.25 mg po BID - plans to wean gradually - sinus pause may be linked to higher dose beta blockers * Continue Telemetry - no pauses overnight * Please place PADs on patient * K+ goal 4.5-5 * Mag goal >2 * SBP 150's * Continue Aldactone 25 mg po per day * Start Entresto 24/26 mg po BID; may escalate dose to max tolerated (97/103 mg)/ achieve SBP control * Patient is mild to moderately volume overloaded - 2+ LE edema * Continue to diurese * Lasix 60 mg IV BID * BID electrolytes * Consider transition to PO Diuretics on 02-05-2024 * Goal SBP 120 mmHg * DVT ppx * Mobilize [place] Escamilla Admission and Anticipated Discharge Date Admission Date: January 30, 2024 Subjective Events Overnight: * Diuresing * 02/03/24 08:06 - 02/04/24 08:06 Total [id number] mL Total [id number] mL Balance -3038 mL Subjective: * No complaints Review of Systems Review of Systems: All systems reviewed & are unremarkable except as noted in HPI & below Physical Exam Physical Exam: Obese JVP 15 cmH20 S1S2 CTA B 2+ LE edema Warm and perfusing Results & Data Vital Signs (Past 12 Hours) Vital Signs Temp Pulse Resp BP Pulse Ox O2 Del Method O2 Flow Rate 02/04/24 03:40 36.4 C L 70 18 173/68 H 94 Nasal Cannula 2 02/03/24 23:52 Nasal Cannula 2 02/03/24 22:43 36.8 C 62 18 174/67 H 94 Nasal Cannula 2 Laboratory Results Comprehensive Metabolic Panel 02/03/24 02/03/24 02/03/24 Range/Units 07:51 07:51 16:08 Sodium 138 137 (136-145) mmol/L Potassium 4.1 4.1 (3.5-5.1) mmol/L Chloride 103 102 (98-107) mmol/L Carbon Dioxide 28 29 (21-32) mmol/L BUN 27 H 28 H (6-23) mg/dl Creatinine 1.03 1.04 1.12 (0.6-1.2) mg/dl Glucose 125 H 144 H (70-99(Fasting)) mg/dl Calcium 8.6 8.5 L (8.6-10.3) mg/dl 02/04/24 Range/Units 06:05 Sodium 138 (136-145) mmol/L Potassium 3.9 (3.5-5.1) mmol/L Chloride 100 (98-107) mmol/L Carbon Dioxide 33 H (21-32) mmol/L BUN 33 H (6-23) mg/dl Creatinine 1.08 (0.6-1.2) mg/dl Glucose 141 H (70-99(Fasting)) mg/dl Calcium 8.8 (8.6-10.3) mg/dl Intake and Output 02/03/24 02/04/24 02/04/24 22:59 06:59 14:59 Intake Total 237 / 862 360 / 862 Output Total 600 / 3900 1800 / 3900 Balance -363 / -3038 -1440 / -3038 Intake: Oral 237 / 597 360 / 597 Output: Urine Amount (Catheter) 600 / 3900 1800 / 3900 Bob/Indwelling 600 / 3900 1800 / 3900 Other: Weight 112.1 kg Weight Measurement Method Built in [facility] Medications Administered Current Inpatient Medications Acetaminophen (Acetaminophen 500 Mg Tab) 1,000 mg PO Q8 [facility] Stop: 03/01/24 10:14 Last Admin: 02/04/24 06:16 Dose: 1,000 mg Al Hydrox/Mg Hydrox/Simethicone (Aluminum/Magnesium Susp 30 Ml Udc) 15 ml PO Q4H PRN PRN Reason: Dyspepsia Stop: 02/29/24 22:31 Amlodipine Besylate (Amlodipine Besylate 5 Mg Tab) 10 mg PO DAILY VAN Stop: 03/01/24 08:59 Last Admin: 02/03/24 09:02 Dose: 10 mg Aspirin (Aspirin 81 Mg Ectab) 81 mg PO DAILY [facility] Stop: 03/01/24 08:59 Last Admin: 02/03/24 09:02 Dose: 81 mg Atorvastatin Calcium (Atorvastatin 20 Mg Tab) 20 mg PO DAILY [facility] Stop: 03/01/24 08:59 Last Admin: 02/03/24 09:02 Dose: 20 mg Calcitriol (Calcitriol 0.25 Mcg Capsule) 0.25 mcg PO TuTh@0900 VAN Stop: 02/29/24 19:44 Last Admin: 01/30/24 20:51 Dose: 0.25 mcg Carvedilol (Carvedilol 12.5 Mg Tab) 12.5 mg PO BIDM VAN Stop: 03/04/24 16:59 Last Admin: 02/03/24 16:54 Dose: 12.5 mg Clonidine HCl (Clonidine Hcl 0.1 Mg Tab) 0.1 mg PO BID VAN Stop: 03/04/24 20:59 Last Admin: 02/03/24 22:21 Dose: 0.1 mg Ferrous Sulfate (Ferrous Sulfate 325 Mg Tab) 325 mg PO QAM VAN Stop: 03/04/24 08:59 Last Admin: 02/03/24 09:03 Dose: 325 mg Fluticasone Propionate (Fluticasone Propionate Na Spr 16 Gm Btl) 1 sprays NA DAILY VAN Stop: 03/01/24 08:59 Last Admin: 02/03/24 09:03 Dose: 1 sprays Furosemide (Furosemide 40 Mg/4 Ml Vial) 60 mg IV BID VAN Stop: 03/04/24 20:59 Last Admin: 02/03/24 22:20 Dose: 60 mg Gabapentin (Gabapentin 400 Mg Cap) 400 mg PO TID VAN Stop: 03/04/24 13:59 Last Admin: 02/03/24 22:22 Dose: 400 mg Heparin Sodium (Beef Lung) (Heparin 10 Unit/Ml 5 Ml Flush) 5 ml FLUSH PRN PRN PRN Reason: Flush Stop: 03/01/24 04:10 Heparin Sodium (Porcine) (Heparin Sod 5,000 Unit/0.5 Ml Vial) 5,000 units SQ Q8 VAN Stop: 02/29/24 21:59 Last Admin: 02/04/24 06:16 Dose: 5,000 units Vancomycin HCl 750 mg/ Sodium (Chloride) 265 mls @ 200 mls/hr IV Q24H VAN Stop: 02/22/24 10:59 Last Infusion: 02/03/24 10:26 Dose: Infused Pantoprazole Sodium 40 mg/ (Syringe) 10 mls @ 5 mls/min IV BID VAN Stop: 02/04/24 09:01 Last Admin: 02/03/24 22:21 Dose: 5 mls/min Pantoprazole Sodium (Protonix) 40 mg in 10 mls @ 5 mls/min IV BID@0900,2100 [facility] Stop: 03/05/24 20:59 Isosorbide Mononitrate (Isosorbide [place] Extended Rel 30 Mg Tabcr) 30 mg PO QAM VAN Stop: 03/01/24 08:59 Last Admin: 02/03/24 09:03 Dose: 30 mg Lorazepam (Lorazepam 0.5 Mg Tab) 0.5 mg PO TID PRN PRN Reason: Anxiety Stop: 02/29/24 19:27 Last Admin: 02/03/24 21:20 Dose: 0.5 mg Magnesium Chloride (Magnesium Chloride W/Calcium 64mg Delayed Rel Tab) 128 mg PO BID [facility] Stop: 03/05/24 08:59 Magnesium Hydroxide (Magnesium Hydroxide Susp 30 Ml Udc) 30 ml PO Q12H PRN PRN Reason: Constipation Stop: 02/29/24 22:31 Methylprednisolone (Methylprednisolone 4 Mg Tab) 4 mg PO 0700,1300,2100 [facility] Stop: 02/04/24 21:01 Methylprednisolone (Methylprednisolone 4 Mg Tab) 4 mg PO 0700,2100 [facility] Stop: 02/05/24 21:01 Methylprednisolone (Methylprednisolone 4 Mg Tab) 4 mg PO 0700 [facility] Stop: 02/06/24 07:01 Miscellaneous Information (Vancomycin Consult Active) 1 each N/A UD PRN PRN Reason: Consult Stop: 02/29/24 17:26 Morphine Sulfate (Morphine Sulfate 2 Mg/Ml Carp) 2 mg IV Q4H PRN PRN Reason: Pain Stop: 02/13/24 19:19 Last Admin: 02/01/24 00:26 Dose: 2 mg Ondansetron HCl (Ondansetron Inj 2 Mg/Ml 2 Ml Vial) 4 mg IV Q6H PRN PRN Reason: Nausea Stop: 02/29/24 22:31 Oxycodone HCl (Oxycodone Hcl Ir 5 Mg Tab (Immediate Release)) 5 mg PO Q6H PRN PRN Reason: Pain Stop: 02/13/24 19:19 Last Admin: 02/03/24 19:39 Dose: 5 mg Polyethylene Glycol (Polyethylene (Miralax) 17 Gm Pack) 17 gm PO DAILY PRN PRN Reason: Constipation Stop: 02/29/24 22:31 Potassium Chloride (Potassium Chloride Crtab 20 Meq Tabcr) 20 meq PO QAM VAN Stop: 03/02/24 08:59 Last Admin: 02/03/24 09:03 Dose: 20 meq Sacubitril/Valsartan (Valsartan/Sacubitril 26/24mg Tab) 1 tab PO BID VAN Stop: 03/05/24 08:59 Sodium Chloride (Sodium Chloride 0.65% Na Soln 45 Ml ([place])) 2 sprays NA NOW PRN PRN Reason: Dryness Stop: 03/01/24 22:56 Last Admin: 01/31/24 23:03 Dose: 2 sprays Spironolactone (Spironolactone 25 Mg Tab) 25 mg PO DAILY [facility] Stop: 03/05/24 08:59 Trolamine Salicylate (Trolamine Salicylate 10% Crm 255 Appln/85 Gm Tube) 1 appln EXT TID [facility] Stop: 03/02/24 13:59 Last Admin: 02/03/24 22:20 Dose: 1 appln
[2024-02-04] MEDS: methylPREDNISolone 4 MG TAB PO SCH (08:12)
[2024-02-04] MEDS: MAGNESIUM CHLORIDE W/CALCIUM 64MG DELAYED REL TAB PO SCH (08:20)
[2024-02-04] MEDS: SPIRONOLACTONE 25 MG TAB PO SCH (08:21)
[2024-02-04] MEDS: VALSARTAN/SACUBITRIL 26/24MG TAB PO SCH (08:21)
[2024-02-04 12:46] LABS: Thyroid Stimulating Hormone 1.847 uIu/ml (0.300-4.500)
--- NOTE | 2024-02-04 12:59 | Hospitalist Progress Note ---
Date of Service February 04, 2024 Assessment & Plan (1) Acute back pain: (2) Hypertension: (3) Diabetes: (4) Hyperlipidemia: (5) Morbid obesity: (6) (HFpEF) heart failure with preserved ejection fraction: (7) Epidural abscess: (8) Anemia: Plan Ms. 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 Patient's postop hgb has ranged Her Hgb was low 7.2-8.2. She was recently admitted to [facility] from 01/06/24 - 01/11/24 and was found to have sepsis/bacteremia and was transferred on 01/10 to [facility] where she underwent C2-C6 debridement under the care of Dr. No with neurosurgery. Cultures grew MRSA; was started on Vancomycin per ID which is to continue @ 750 mg IV daily until 02/21. She has a planned Neurosurgery f/u at [facility] on 02/11. She has been bedbound since 01/06/24. All PT/OT has gotten her up to ambulate, but she can not get up without assistance and she is developing a pressure ulcer from being sedentary. Patient is now s/p 3 days of IV venofer, will transition to PO supplementation. Reviewed Ortho spine recommendations: no plan for surgery given active treatment for infection 02/02 Called Transfer Center to discuss with Neurosurgery at [place]. Concern being patient's inability to move 2/2 pain as well as dense numbness and lack of sensation to cold. Spoke to Dr. Villanueva who states he cannot be sure and stated if concerned can send patient to [facility] ED. Per outpatient charts, patient with 2/5 strength in LLE during postop at [place] (not too dissimilar to exam here). 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 She states she wishes to return [facility] when ready and keep her 02/[address] No[address] To further complicate course, patient with pause overnight on tele. Multiple medication adjustments appreciated. Patient currently undergoing continue IV diuersis and medication optimization. Plan to discontinue coreg (slowly) and increase entresto as tolerated. Patient still with moderate volume overload and can tolerate more IV. #Neurogenic claudication 2/2 lumbar stenosis #Ambulatory dysfunction #Moderate lumbar spinal stenosis -lumbar spine CT: No acute fractures. Severe multilevel degenerative disc disease and facet arthrosis within the lumbar spine. Suboptimal evaluation of the central canal MRI severe multilevel lumbar spinal stenosis with spondylolisthesis Scheduled tylenol q8 Oxy prn severe pain no current surgical candidate 2/2 tx for recent epidural abscess Medrol dose sobia today pain management consult: optimize regimen or limited until procedure? -Continue increased gabapentin to TID -Continue increased clonidine to BID for BP control and pain augmentation after discussion with Dr Bhatti PT/OT, will need to return to rehab #Sacral pressure wounds, POA wound care to stage and eval, stable--minimal continue reposition q2 hours #Acute hypoxic resp failure 2/2 pulm edema #Sinus pause #Acute on chronic heart failure with preserved EF #HTN: Chronic Takes Lasix 80 mg daily; this has been on hold due to renal function 01/09/24 DUANE: No evidence of a valvular vegetation. Small, incidental PFO noted. EF 55-60%. Cardiology following patient, reviewed recommendations -Increase IV lasix to 60mg IV BID -Continue tele, no further pauses -TSH 1.847 -BMP q12 -Weening off coreg, 6.25 BID tomorrow, then d/c give pause--BB was for PAF iso bacteremia/acute illness -Increased spironolactone 25mg daily -Continue home imdur -discontinued amlodipine #Acute on chronic anemia *stable #Iron deficiency Acute T/C done and blood consent signed Likely multifactorial iso critical illness, noted iron deficiency PPI IV BID , FOBT ordered not collected completed 3 days of IV venofer start daily iron tablet #Recent Epidural Abscess s/p c2-c6 debridement #Recent MRSA bacteremia on [facility] antimicrobial therapy Recent transfer on 01/10 to [facility] where she underwent C2-C6 debridement under the care of Dr. No with neurosurgery Cultures grew MRSA; was started on Vancomycin per ID which is to continue @ 750 mg IV daily until 02/21. Last Vanco level drawn yesterday; discussed with pharmacy Neurosurgery f/u at [facility] on 02/11 Continue Vancomycin IV Warner removed 02/03, neck incision well approximated, multiple loose warner #Paroxysmal Atrial fibrillation: No prior history of AF, likely iso severe illness Continue ASA Metoprolol transitioned to Coreg during last admission; plan to ween off coreg and d/c bb as af likely iso bacteremia MRSA infection, d/c 2/2 above pause Disposition: PCP: Dr. Clarke Code Status: Full VTE Prophylaxis: Heparin SQ Admission and Anticipated Discharge Date Admission Date: January 30, 2024 Subjective NAEO Reports feeling more comfortable than days prior No chest pain, lightheadedness or other acute concerns Sister visiting at bedside Physical Exam Constitutional: WD/WN, vitals as above Respiratory: dimished 2/2 habitus Cardiovascular: RRR, pedal edema 2+ L> R, notably improved since admission Results & Data Results & Data Vital Signs (Past 12 Hours) Vital Signs Temp Pulse Pulse Resp BP Pulse Ox O2 Del Method 02/04/24 11:43 36.6 C 61 18 150/68 H 97 Nasal Cannula 02/04/24 08:07 36.5 C 66 20 186/71 H 97 Nasal Cannula 02/04/24 07:00 53 L 02/04/24 03:40 36.4 C L 70 18 173/68 H 94 Nasal Cannula O2 Flow Rate 02/04/24 11:43 2 02/04/24 08:07 2 02/04/24 07:00 02/04/24 03:40 2 Laboratory Results [facility] 02/03/24 02/04/24 16:08 06:05 Sodium 137 138 Potassium 4.1 3.9 Chloride 102 100 Carbon Dioxide 29 33 H BUN 28 H 33 H Creatinine 1.12 1.08 Glucose 144 H 141 H Calcium 8.5 L 8.8 Medications Administered Home Medications Medication Instructions Recorded Confirmed Last Taken aspirin 81 mg tablet,delayed 81 mg PO DAILY 01/06/24 01/30/24 Unknown release atorvastatin 20 mg tablet 20 mg PO DAILY 01/06/24 01/30/24 Unknown calcitriol 0.25 mcg capsule 0.25 mcg PO UD 01/06/24 01/30/24 Unknown fluticasone propionate 50 1 spray intranasal DAILY 01/06/24 01/30/24 Unknown mcg/actuation nasal spray,suspension lorazepam 0.5 mg tablet 0.5 mg PO TID PRN Anxiety 01/06/24 01/30/24 Unknown semaglutide 1 mg/dose (4 mg/3 mL) 1 mg subcut WK 01/06/24 01/30/24 Unknown subcutaneous pen injector (Ozempic) furosemide 20 mg tablet 60 mg PO DAILY 01/07/24 01/30/24 Unknown losartan 100 mg tablet 100 mg PO DAILY 01/07/24 01/30/24 Unknown omeprazole 20 mg capsule,delayed 20 mg PO DAILY 01/07/24 01/30/24 Unknown release Vancomycin Consult Active [Consult] 1 ea Not Applicable UD PRN ##0 01/11/24 01/30/24 Unknown acetaminophen 500 mg tablet 1,000 mg (2 x 500 mg) PO TID #0 01/11/24 01/30/24 Unknown (Tylenol Extra Strength) tabs amlodipine 5 mg tablet 10 mg (2 x 5 mg) PO DAILY #0 tabs 01/11/24 01/30/24 Unknown carvedilol 25 mg tablet 25 mg PO BIDM #0 tabs 01/11/24 01/30/24 Unknown clonidine HCl 0.1 mg tablet 0.1 mg PO BID #0 tabs 01/11/24 01/30/24 Unknown clonidine HCl 0.1 mg tablet 0.1 mg PO Q8H PRN #0 tabs 01/11/24 01/30/24 Unknown gabapentin 400 mg capsule 400 mg PO BID #0 caps 01/11/24 01/30/24 Unknown heparin, porcine (PF) 5,000 5,000 unit (0.5 mL) subcut Q8 #0 mL 01/11/24 01/30/24 Unknown unit/0.5 mL injection syringe isosorbide mononitrate 30 mg 30 mg PO QAM #0 tabs 01/11/24 01/30/24 Unknown tablet,extended release 24 hr tramadol 50 mg tablet 50 mg PO Q8H PRN Severe Pain 01/11/24 01/30/24 Unknown (Scale Score 7-10) #0 tabs Active Medications Generic Name Dose Route Start Last Admin Trade Name Freq PRN Reason Stop Dose Admin Acetaminophen 1,000 mg 01/31/24 10:15 02/04/24 06:16 Acetaminophen 500 Mg Tab PO 03/01/24 10:14 1,000 mg Q8 VAN Administration Amlodipine Besylate 10 mg 01/31/24 09:00 02/03/24 09:02 Amlodipine Besylate 5 Mg Tab PO 03/01/24 08:59 10 mg DAILY VAN Administration Aspirin 81 mg 01/31/24 09:00 02/04/24 08:13 Aspirin 81 Mg Ectab PO 03/01/24 08:59 81 mg DAILY VAN Administration Atorvastatin Calcium 20 mg 01/31/24 09:00 02/04/24 08:12 Atorvastatin 20 Mg Tab PO 03/01/24 08:59 20 mg DAILY VAN Administration Calcitriol 0.25 mcg 01/30/24 19:45 02/04/24 08:12 Calcitriol 0.25 Mcg Capsule PO 02/29/24 19:44 0.25 mcg TuTh@0900 VAN Administration Clonidine HCl 0.1 mg 02/03/24 21:00 02/04/24 08:14 Clonidine Hcl 0.1 Mg Tab PO 03/04/24 20:59 0.1 mg BID VAN Administration Ferrous Sulfate 325 mg 02/03/24 09:00 02/04/24 08:13 Ferrous Sulfate 325 Mg Tab PO 03/04/24 08:59 325 mg QAM VAN Administration Fluticasone Propionate 1 sprays 01/31/24 09:00 02/04/24 08:14 Fluticasone Propionate Na Spr 16 Gm Btl NA 03/01/24 08:59 1 sprays DAILY VAN Administration Furosemide 60 mg 02/03/24 21:00 02/04/24 08:18 Furosemide 40 Mg/4 Ml Vial IV 03/04/24 20:59 60 mg BID VAN Administration Gabapentin 400 mg 02/03/24 14:00 02/04/24 08:13 Gabapentin 400 Mg Cap PO 03/04/24 13:59 400 mg TID VAN Administration Heparin Sodium (Porcine) 5,000 units 01/30/24 22:00 02/04/24 06:16 Heparin Sod 5,000 Unit/0.5 Ml Vial SQ 02/29/24 21:59 5,000 units Q8 VAN Administration Vancomycin HCl 750 mg/ Sodium 265 mls @ 200 mls/hr 01/31/24 09:00 02/04/24 08:17 Chloride IV 02/22/24 10:59 200 mls/hr Q24H VAN Administration Isosorbide Mononitrate 30 mg 01/31/24 09:00 02/04/24 08:12 Isosorbide [place] Extended Rel 30 Mg Tabcr PO 03/01/24 08:59 30 mg QAM VAN Administration Lorazepam 0.5 mg 01/30/24 19:28 02/03/24 21:20 Lorazepam 0.5 Mg Tab PO 02/29/24 19:27 0.5 mg TID PRN Administration Anxiety Magnesium Chloride 128 mg 02/04/24 09:00 02/04/24 08:20 Magnesium Chloride W/Calcium 64mg Delayed Rel Tab PO 03/05/24 08:59 128 mg BID VAN Administration Methylprednisolone 4 mg 02/04/24 07:00 02/04/24 08:12 Methylprednisolone 4 Mg Tab PO 02/04/24 21:01 4 mg 0700,1300,2100 VAN Administration Morphine Sulfate 2 mg 01/30/24 19:20 02/01/24 00:26 Morphine Sulfate 2 Mg/Ml Carp IV 02/13/24 19:19 2 mg Q4H PRN Administration Pain Oxycodone HCl 5 mg 01/30/24 19:20 02/03/24 19:39 Oxycodone Hcl Ir 5 Mg Tab (Immediate Release) PO 02/13/24 19:19 5 mg Q6H PRN Administration Pain Potassium Chloride 20 meq 02/01/24 09:00 02/04/24 08:18 Potassium Chloride Crtab 20 Meq Tabcr PO 03/02/24 08:59 20 meq QAM VAN Administration Sacubitril/Valsartan 1 tab 02/04/24 09:00 02/04/24 08:21 Valsartan/Sacubitril 26/24mg Tab PO 03/05/24 08:59 1 tab BID VAN Administration Sodium Chloride 2 sprays 01/31/24 22:57 01/31/24 23:03 Sodium Chloride 0.65% Na Soln 45 Ml ([place]) NA 03/01/24 22:56 2 sprays NOW PRN Administration Dryness Spironolactone 25 mg 02/04/24 09:00 02/04/24 08:21 Spironolactone 25 Mg Tab PO 03/05/24 08:59 25 mg DAILY VAN Administration Trolamine Salicylate 1 appln 02/01/24 14:00 02/04/24 09:58 Trolamine Salicylate 10% Crm 255 Appln/85 Gm Tube EXT 03/02/24 13:59 1 appln TID VAN Administration (2) Hypertension Hypertension type: renovascular hypertension Qualified Code(s): I15.0 - Renovascular hypertension
[2024-02-04 17:14] LABS: Calcium 8.7 mg/dl (8.6-10.3); Creatinine Clr Calc Pharmacy 48.5 ml/min; Magnesium 1.5 mg/dl (1.7-2.4); Potassium 3.9 mmol/L (3.5-5.1)
[2024-02-04] MEDS: PANTOprazole 40 MG in SYRINGE BID IV SCH (20:32)
[2024-02-04] MEDS: VALSARTAN/SACUBITRIL 51/49 MG TAB PO SCH (22:18)
[2024-02-05] MEDS: methylPREDNISolone 4 MG TAB PO SCH (06:10)
[2024-02-05 07:42] LABS: BUN Creatinine Ratio 33.6 (10-20); Calcium 8.9 mg/dl (8.6-10.3); Creatinine Clr Calc Pharmacy 50.7 ml/min; Magnesium 1.6 mg/dl (1.7-2.4); Potassium 3.6 mmol/L (3.5-5.1)
[2024-02-05] MEDS: carvediloL 6.25 MG TAB PO SCH (09:03)
--- NOTE | 2024-02-05 15:09 | Hospitalist Progress Note ---
Date of Service February 05, 2024 Assessment & Plan (1) Acute back pain: (2) Hypertension: (3) Diabetes: (4) Hyperlipidemia: (5) Morbid obesity: (6) (HFpEF) heart failure with preserved ejection fraction: (7) Epidural abscess: (8) Anemia: Plan Ms. 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 As per Prior hospitalist: Patient's postop hgb has ranged Her Hgb was low 7.2-8.2. She was recently admitted to [facility] from 01/06/24 - 01/11/24 and was found to have sepsis/bacteremia and was transferred on 01/10 to [facility] where she underwent C2-C6 debridement under the care of Dr. No with neurosurgery. Cultures grew MRSA; was started on Vancomycin per ID which is to continue @ 750 mg IV daily until 02/21. She has a planned Neurosurgery f/u at [facility] on 02/11. She has been bedbound since 01/06/24. All PT/OT has gotten her up to ambulate, but she can not get up without assistance and she is developing a pressure ulcer from being sedentary. 02/02 Called Transfer Center to discuss with Neurosurgery at [place]. Concern being patient's inability to move 2/2 pain as well as dense numbness and lack of sensation to cold. Spoke to Dr. Villanueva who states he cannot be sure and stated if concerned can send patient to [facility] ED. Per outpatient charts, patient with 2/5 strength in LLE during postop at [place] (not too dissimilar to exam here). 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 She states she wishes to return to rehab when ready and keep her 02/[address] No. Patient currently undergoing continue IV diuersis and medication optimization. Plan to discontinue coreg (slowly) and increase entresto as tolerated. Patient still with moderate volume overload and can tolerate more IV. Neurogenic claudication 2/2 lumbar stenosis Ambulatory dysfunction Moderate lumbar spinal stenosis -lumbar spine CT: No acute fractures. Severe multilevel degenerative disc disease and facet arthrosis within the lumbar spine. Suboptimal evaluation of the central canal MRI severe multilevel lumbar spinal stenosis with spondylolisthesis Pain control no current surgical candidate due to tx for recent epidural abscess Continue Medrol dose sobia Pain management consult: optimize regimen or limited until procedure? -Continue increased gabapentin to TID -Continue increased clonidine to BID for BP control PT/OT, will need to return to rehab as able Sacral pressure wounds, POA wound care to stage and eval, stable continue reposition q2 hours Acute hypoxic resp failure 2/2 pulm edema Sinus pause Acute on chronic heart failure with preserved EF HTN: Takes Lasix 80 mg daily; this has been on hold due to renal function 01/09/24 DUANE: No evidence of a valvular vegetation. Small, incidental PFO noted. EF 55-60%. Appreciate Cardiology Input Continue IV Lasix 60mg BID Monitor for pauses Wean off Coreg--decrease to 3.125mg today--DC as able (Was started for PAF in setting of bacteremia/acute illness) Increased spironolactone 25mg daily -Continue home Imdur Discontinued amlodipine due to leg edema started on Entresto Acute on chronic anemia stable Iron deficiency Acute Likely multifactorial iso critical illness, noted iron deficiency PPI IV BID , FOBT ordered not collected S/P IV Venofer Continue Iron supplements Recent Epidural Abscess s/p c2-c6 debridement Recent MRSA bacteremia on intermediate antimicrobial therapy Recent transfer on 01/10 to [facility] where she underwent C2-C6 debridement under the care of Dr. No with neurosurgery Cultures grew MRSA; was started on Vancomycin per ID which is to continue @ 750 mg IV daily until 02/21. Neurosurgery f/u at [facility] on 02/11 Continue Vancomycin IV Mott removed 02/03, neck incision well approximated, multiple loose thanh Paroxysmal Atrial fibrillation: No prior history of AF, likely in setting of severe illness Continue ASA Metoprolol transitioned to Coreg during last admission Plan to ween off coreg as af likely in setting of bacteremia MRSA infection, and now with pause DVT Px: Heparin SQ Code Status: Full Disposition PT/OT prior to discharge Admission and Anticipated Discharge Date Admission Date: January 30, 2024 Subjective Patient is seen and examined at bedside States feeling better today Leg edema slowly improving Reports poor sleep overnight Denies any chest pain, dyspnea, dizziness, abdominal pain Review of Systems Review of Systems: All systems reviewed & are unremarkable except as noted in Subjective Physical Exam Physical Exam: Physical Exam: Vitals signs as noted above General Appearance:Morbidly Obese, no apparent distress Head: normocephalic, Atraumatic Eyes: normal inspection, EOMI Neck: supple, Trachea midline, +posterior surgical site Respiratory/Chest: Decreased breath sounds, CTA, No accessory muscle use Cardiovascular: S1, S2, No murmur Abdomen/GI:Soft, Non tender, Bowel sounds present Extremities/Musculoskeletal:normal inspection, 2+ edema--improving Neurologic/Psych:AAOX3, left lower extremity 2/5 otherwise grossly no focal neurological deficits Skin: normal color, warm Results & Data Results & Data Vital Signs (Past 12 Hours) Vital Signs Temp Pulse Pulse Resp BP Pulse Ox O2 Del Method 02/05/24 12:07 36.5 C 56 L 17 148/73 H 97 Nasal Cannula 02/05/24 09:43 57 L 02/05/24 08:07 36.6 C 63 19 187/80 H 95 Nasal Cannula 02/05/24 03:37 36.5 C 60 16 183/70 H 96 Nasal Cannula O2 Flow Rate 02/05/24 12:07 02/05/24 09:43 02/05/24 08:07 2 02/05/24 03:37 2 Laboratory Results [facility] 02/04/24 02/05/24 16:16 06:20 Sodium 137 140 Potassium 3.9 3.6 Chloride 100 97 L Carbon Dioxide 31 35 H BUN 38 H 37 H Creatinine 1.15 1.10 Glucose 152 H 132 H Calcium 8.7 8.9 (2) Hypertension Hypertension type: renovascular hypertension Qualified Code(s): I15.0 - Renovascular hypertension
--- NOTE | 2024-02-05 16:24 | Cardiology Progress Note ---
Date of Service February 05, 2024 Assessment & Plan (1) Sinus pause: (2) (HFpEF) heart failure with preserved ejection fraction: Plan Volume status improved. Discontinue IV Lasix. Transition to oral Lasix 60 mg daily (outpatient dose). Continue reduced dose carvedilol. Monitor telemetry. Titrate Entresto to 97/103 mg twice daily to improve blood pressure control. Continue Aldactone, as ordered. Admission and Anticipated Discharge Date Admission Date: January 30, 2024 Subjective Patient seen and examined at the bedside. Notes mild low back pain. No recurrent pauses on telemetry. Rhythm is sinus.Fluid balance -3.3 L.Stable renal function and electrolytes. Review of Systems Review of Systems: All systems reviewed & are unremarkable except as noted in Subjective Physical Exam Constitutional: well nourished and + morbidly obese; no acute distress Respiratory: normal respiratory effort; no respiratory distress, no labored breathing and no retractions Auscultation: + diminished lung sounds (Bases bilateral); no rales, no rhonchi and no wheezes Cardiovascular: Rate/Rhythm: regular rate and regular rhythm Heart Sounds: normal S1 and normal S2 Vessels: no JVD and no carotid bruit Extremities: no edema Results & Data Vital Signs (Past 12 Hours) Vital Signs Temp Pulse Pulse Resp BP Pulse Ox O2 Del Method 02/05/24 15:42 36.5 C 58 L 18 156/66 H 95 Nasal Cannula 02/05/24 15:00 62 02/05/24 12:07 36.5 C 56 L 17 148/73 H 97 Nasal Cannula 02/05/24 09:43 57 L 02/05/24 08:07 36.6 C 63 19 187/80 H 95 Nasal Cannula O2 Flow Rate 02/05/24 15:42 2 02/05/24 15:00 02/05/24 12:07 02/05/24 09:43 02/05/24 08:07 2 Laboratory Results [facility] Panel 02/04/24 02/05/24 Range/Units 16:16 06:20 Sodium 137 140 (136-145) mmol/L Potassium 3.9 3.6 (3.5-5.1) mmol/L Chloride 100 97 L (98-107) mmol/L Carbon Dioxide 31 35 H (21-32) mmol/L BUN 38 H 37 H (6-23) mg/dl Creatinine 1.15 1.10 (0.6-1.2) mg/dl Glucose 152 H 132 H (70-99(Fasting)) mg/dl Calcium 8.7 8.9 (8.6-10.3) mg/dl Intake and Output 02/05/24 02/05/24 02/05/24 06:59 14:59 22:59 Intake Total 150 / 1295 805 / 805 Output Total 1900 / 5250 1425 / 1425 Balance -1750 / -3955 -620 / -620 Intake: IV 265 / 265 Vancomycin HCl 750 mg In Sodium 265 / 265 Chloride 0.9% 250 ml @ 200 mls /hr IV Q24H [facility] Rx#:[id number] Oral 150 / 1030 540 / 540 Output: Urine Amount (Catheter) 1900 / 5250 1425 / 1425 Bob/Indwelling 1900 / 5250 1425 / 1425 (2) (HFpEF) heart failure with preserved ejection fraction Heart failure chronicity: chronic Qualified Code(s): I50.32 - Chronic diastolic (congestive) heart failure
[2024-02-05 18:04] LABS: BUN Creatinine Ratio 38.2 (10-20); Calcium 8.4 mg/dl (8.6-10.3); Creatinine Clr Calc Pharmacy 50.7 ml/min; Magnesium 1.4 mg/dl (1.7-2.4); Potassium 3.5 mmol/L (3.5-5.1)
[2024-02-05] MEDS: carvediloL 3.125 MG TAB PO SCH (18:06)
[2024-02-05] MEDS: VALSARTAN/SACUBITRIL 103/97MG TAB PO SCH (20:29)
[2024-02-06 05:09] LABS: Hematocrit (blood only) 29.1 % (37.0-47.0); Hemoglobin 9.4 g/dl (12.0-16.0); Mean Corpuscular Hgb Conc 32.3 g/dL (32.0-36.0); Mean Platelet Volume 8.8 fL (9.4-12.4); Platelet Count 440 K/uL (130-400); RDW Coefficient of Variation 13.3 % (11.5-14.5); RDW Standard Deviation 43.5 fL (36.4-46.3); Red Blood Count 3.13 M/uL (4.20-5.40); White Blood Count 11.06 K/ul (4.8-10.8)
[2024-02-06 05:16] LABS: BUN Creatinine Ratio 40.8 (10-20); Calcium 8.7 mg/dl (8.6-10.3); Creatinine Clr Calc Pharmacy 56.5 ml/min; Magnesium 1.6 mg/dl (1.7-2.4); Potassium 3.5 mmol/L (3.5-5.1)
[2024-02-06] MEDS: methylPREDNISolone 4 MG TAB PO SCH (06:05)
--- NOTE | 2024-02-06 09:10 | Pharmacy Report ---
Pharmacy PK ABX Note - Date of Service February 06, 2024 - Assessment and Plan Assessment * Ms Escobar is a 78 year old F receiving IV vancomycin for treatment of an epidural abscess. * Pt was admitted from 01/05-01/10 with sepsis/bacteremia and was transferred to [facility] on 01/10 where she underwent C2-C6 debridement w/ neurosurgery. * Pertinent microbiologic data includes: cultures from C growing MRSA. * Other significant PMH includes DM, CHF, CKD stage III * Per ID, vanc is to continue until 02/21. * Renal function remains stable. Plan Vancomycin * Current regimen: 750 mg IV every 24 hours * Trough level obtained 02/06/24 resulted as 14.2 mcg/mL. This is predicted to achieve target AUC/RENAN of 400-600 mg/L.hr * Predicted AUC at steady state: 482 mg/L.hr * Continue 750 mg IV every 24 hours * Repeat random level ordered for: 02/10/24 Pharmacy will continue to follow and will adjust dose/frequency as necessary. Thank you. Pharmacy has transitioned to AUC monitoring for vancomycin. AUC/RENAN is the preferred PK/PD target and is associated with decreased risk of nephrotoxicity compared to traditional trough targets.
[2024-02-06] MEDS: VANCOMYCIN LEVEL ONE (09:28)
[2024-02-06] MEDS: FUROSEMIDE 20 MG TAB PO SCH (10:17)
--- NOTE | 2024-02-06 14:30 | Cardiology Progress Note ---
Date of Service February 06, 2024 Assessment & Plan (1) Sinus pause: (2) (HFpEF) heart failure with preserved ejection fraction: Plan Volume status improved. Continue oral Lasix 60 mg daily (outpatient dose). Carvedilol reduced due to 5 sec sinus pause. Monitor telemetry. Entresto increased to 97/103 mg twice daily to improve blood pressure control. Continue Aldactone. Amlodipine discontinued. Admission and Anticipated Discharge Date Admission Date: January 30, 2024 Subjective 78-year-old female seen and examined at the bedside. Fluid balance negative additional 2.5 L. Blood pressure control improved with titration of Entresto. Denies chest pain or shortness of breath. Telemetry reveals sinus rhythm in the 50s and 60s. No recurrent sinus pauses. Offers no concerns/complaints. Review of Systems Review of Systems: All systems reviewed & are unremarkable except as noted in Subjective Physical Exam Constitutional: well nourished and + morbidly obese; no acute distress Respiratory: normal respiratory effort; no respiratory distress, no labored breathing and no retractions Auscultation: + diminished lung sounds (Bases bilateral); no rales, no rhonchi and no wheezes Cardiovascular: Rate/Rhythm: regular rate and regular rhythm Heart Sounds: normal S1 and normal S2 Vessels: no JVD and no carotid bruit Extremities: no edema Results & Data Vital Signs (Past 12 Hours) Vital Signs Temp Pulse Pulse Resp BP Pulse Ox O2 Del Method 02/06/24 11:14 36.6 C 63 15 121/73 96 Room Air 02/06/24 09:50 Nasal Cannula 02/06/24 07:58 54 L 02/06/24 07:17 36.9 C 55 L 16 168/75 H 96 Nasal Cannula 02/06/24 03:10 36.8 C 57 L 18 148/76 H 97 Nasal Cannula O2 Flow Rate 02/06/24 11:14 02/06/24 09:50 2 02/06/24 07:58 02/06/24 07:17 2 02/06/24 03:10 2 Laboratory Results CBC 02/06/24 Range/Units 04:39 WBC 11.06 H (4.8-10.8) K/ul RBC 3.13 L (4.20-5.40) M/uL Hgb 9.4 L (12.0-16.0) g/dl Hct 29.1 L (37.0-47.0) % Plt Count 440 H (130-400) K/uL Comprehensive Metabolic Panel 02/05/24 02/06/24 Range/Units 17:25 04:39 Sodium 136 138 (136-145) mmol/L Potassium 3.5 3.5 (3.5-5.1) mmol/L Chloride 97 L 95 L (98-107) mmol/L Carbon Dioxide 34 H 36 H (21-32) mmol/L BUN 42 H 42 H (6-23) mg/dl Creatinine 1.10 1.03 (0.6-1.2) mg/dl Glucose 180 H 153 H (70-99(Fasting)) mg/dl Calcium 8.4 L 8.7 (8.6-10.3) mg/dl Intake and Output 02/05/24 02/06/24 02/06/24 22:59 06:59 14:59 Intake Total 300 / 1505 400 / 1505 895 / 895 Output Total 600 / 4025 2000 / 4025 550 / 550 Balance -300 / -2520 -1600 / -2520 345 / 345 Intake: IV 265 / 265 Vancomycin HCl 750 mg In Sodium 265 / 265 Chloride 0.9% 250 ml @ 200 mls /hr IV Q24H [facility] Rx#:[id number] Oral 300 / 1240 400 / 1240 630 / 630 Output: Urine Amount (Catheter) 600 / 4025 2000 / 4025 550 / 550 Bob/Indwelling 600 / 4025 2000 / 4025 550 / 550 Other: Weight 120 kg 120 kg Weight Measurement Method [facility] Patient Weight 02/07/24 06:59 Weight 120 kg (2) (HFpEF) heart failure with preserved ejection fraction Heart failure chronicity: chronic Qualified Code(s): I50.32 - Chronic diastolic (congestive) heart failure
--- NOTE | 2024-02-06 15:24 | Hospitalist Progress Note ---
Date of Service February 06, 2024 Assessment & Plan (1) Acute back pain: (2) Hypertension: (3) Diabetes: (4) Hyperlipidemia: (5) Morbid obesity: (6) (HFpEF) heart failure with preserved ejection fraction: (7) Epidural abscess: (8) Anemia: Plan Ms. 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 As per Prior hospitalist: Patient's postop hgb has ranged Her Hgb was low 7.2-8.2. She was recently admitted to [facility] from 01/06/24 - 01/11/24 and was found to have sepsis/bacteremia and was transferred on 01/10 [place] [facility] [place] she underwent C2-C6 debridement under the care of Dr. No with neurosurgery. Cultures grew MRSA; was started on Vancomycin per ID which is to continue @ 750 mg IV daily until 02/21. She has a planned Neurosurgery f/u at [facility] [place]11. She has been bedbound since 01/06/24. All PT/OT has gotten her up to ambulate, but she can not get up without assistance and she is developing a pressure ulcer from being sedentary. 02/02 Called Transfer Center to discuss with Neurosurgery at [place]. Concern being patient's inability to move 2/2 pain as well as dense numbness and lack of sensation to cold. Spoke to Dr. Villanueva who states he cannot be sure and stated if concerned can send patient to [facility] [place]. Per outpatient charts, patient with 2/5 strength in LLE during postop at [place] (not too dissimilar to exam here). 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 She states she wishes to return to rehab when ready and keep her 02/[address] No. Patient currently undergoing continue IV diuersis and medication optimization. Plan to discontinue coreg (slowly) and increase entresto as tolerated. Patient still with moderate volume overload and can tolerate more IV. Neurogenic claudication 2/2 lumbar stenosis Ambulatory dysfunction Moderate lumbar spinal stenosis -lumbar spine CT: No acute fractures. Severe multilevel degenerative disc disease and facet arthrosis within the lumbar spine. Suboptimal evaluation of the central canal MRI severe multilevel lumbar spinal stenosis with spondylolisthesis Pain control no current surgical candidate due to tx for recent epidural abscess Pain management consult: optimize regimen or limited until procedure? -Continue increased gabapentin to TID -Continue increased clonidine to BID for BP control PT/OT, will need to return to rehab as able Completed Medrol dose pack Case management to help with discharge planning Acute hypoxic resp failure 2/2 pulm edema Sinus pause Acute on chronic heart failure with preserved EF HTN: Takes Lasix 80 mg daily; this has been on hold due to renal function 01/09/24 DUANE: No evidence of a valvular vegetation. Small, incidental PFO noted. EF 55-60%. Appreciate Cardiology Input Continue IV Lasix 60mg BID>> transition to oral Lasix 60 mg daily Monitor for pauses Continue Coreg at decreased dose for 3.125 mg BID Increased spironolactone 25mg daily -Continue home Imdur Discontinued amlodipine due to leg edema started on Entresto 103/97 BID Volume status improved Needs follow-up with cardiology on discharge Acute on chronic anemia stable Iron deficiency Acute Likely multifactorial iso critical illness, noted iron deficiency continue PPI S/P IV Venofer Continue Iron supplements Recent Epidural Abscess s/p c2-c6 debridement Recent MRSA bacteremia on care home antimicrobial therapy Recent transfer on 01/10 to [facility] where she underwent C2-C6 debridement under the care of Dr. No with neurosurgery Cultures grew MRSA; was started on Vancomycin per ID which is to continue @ 750 mg IV daily until 02/21. Neurosurgery f/u at [facility] on 02/11 Continue Vancomycin IV [place] removed 02/03, neck incision well approximated, multiple loose warner Needs follow-up with neurosurgery on discharge Paroxysmal Atrial fibrillation: No prior history of AF, likely in setting of severe illness Continue ASA Metoprolol transitioned to Coreg during last admission Continue low-dose Coreg Pressure ulcer of sacral region, unstageable Continue local wound care Reposition per protocol DVT Px: Heparin SQ Code Status: Full Disposition PT/OT prior to discharge Admission and Anticipated Discharge Date Admission Date: January 30, 2024 Subjective Patient is seen and examined at bedside Back pain is well-controlled Offers no new complaints Denies any chest pain, dyspnea, dizziness, abdominal pain Waiting for placement Review of Systems Review of Systems: All systems reviewed & are unremarkable except as noted in Subjective Physical Exam Physical Exam: Physical Exam: Vitals signs as noted above General Appearance:Morbidly Obese, no apparent distress Head: normocephalic, Atraumatic Eyes: normal inspection, EOMI Neck: supple, Trachea midline, +posterior surgical site Respiratory/Chest: Decreased breath sounds, CTA, No accessory muscle use Cardiovascular: S1, S2, No murmur Abdomen/GI:Soft, Non tender, Bowel sounds present Extremities/Musculoskeletal:normal inspection, 2+ edema--improving Neurologic/Psych:AAOX3, left lower extremity 2/5 otherwise grossly no focal neurological deficits Skin: normal color, warm Results & Data Results & Data Vital Signs (Past 12 Hours) Vital Signs Temp Pulse Pulse Resp BP Pulse Ox O2 Del Method 02/06/24 15:00 66 02/06/24 14:44 36.3 C L 62 17 123/53 L 95 Nasal Cannula 02/06/24 11:14 36.6 C 63 15 121/73 96 Room Air 02/06/24 09:50 Nasal Cannula 02/06/24 07:58 54 L 02/06/24 07:17 36.9 C 55 L 16 168/75 H 96 Nasal Cannula O2 Flow Rate 02/06/24 15:00 02/06/24 14:44 2 02/06/24 11:14 02/06/24 09:50 2 02/06/24 07:58 02/06/24 07:17 2 Laboratory Results Short CBC 02/06/24 Range/Units 04:39 WBC 11.06 H (4.8-10.8) K/ul Hgb 9.4 L (12.0-16.0) g/dl Hct 29.1 L (37.0-47.0) % Plt Count 440 H (130-400) K/uL BMP 02/05/24 02/06/24 17:25 04:39 Sodium 136 138 Potassium 3.5 3.5 Chloride 97 L 95 L Carbon Dioxide 34 H 36 H BUN 42 H 42 H Creatinine 1.10 1.03 Glucose 180 H 153 H Calcium 8.4 L 8.7 (2) Hypertension Hypertension type: renovascular hypertension Qualified Code(s): 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
[2024-02-06] MEDS: PANTOprazole 40 MG TAB PO SCH (21:59)
--- NOTE | 2024-02-07 11:17 | Cardiology Progress Note ---
Date of Service February 07, 2024 Assessment & Plan (1) Sinus pause: (2) (HFpEF) heart failure with preserved ejection fraction: Plan Continue oral Lasix 60 mg daily (outpatient dose). Continue carvedilol 3.125 mg twice daily. Dose reduced due to 5 sec sinus pause (no recurrence). Entresto increased to 97/103 mg twice daily to improve blood pressure control. Continue Aldactone. Amlodipine discontinued. No further inpatient cardiac testing or intervention recommended at this time. Cardiology will sign off. Please call with additional concerns/questions. Admission and Anticipated Discharge Date Admission Date: January 30, 2024 Subjective Patient seen examined the bedside. Denies chest pain, shortness of breath, lightheadedness, or dizziness. Telemetry will sinus rhythm in the 50s and 60s. No recurrent sinus pauses. Left lower extremity strength and movement improving. Review of Systems Review of Systems: All systems reviewed & are unremarkable except as noted in Subjective Physical Exam Constitutional: well nourished and + morbidly obese; no acute distress Respiratory: normal respiratory effort; no respiratory distress, no labored breathing and no retractions Auscultation: + diminished lung sounds (Bases bilateral); no rales, no rhonchi and no wheezes Cardiovascular: Rate/Rhythm: regular rate and regular rhythm Heart Sounds: normal S1 and normal S2 Vessels: no JVD and no carotid bruit Extremities: no edema Results & Data Vital Signs (Past 12 Hours) Vital Signs Temp Pulse Pulse Resp BP Pulse Ox O2 Del Method 02/07/24 11:14 36.4 C L 60 18 130/81 93 Room Air 02/07/24 07:42 36.3 C L 58 L 18 160/80 H Room Air 02/07/24 07:21 61 02/07/24 03:18 36.3 C L 63 18 147/71 H 90 Room Air 02/07/24 00:43 Nasal Cannula O2 Flow Rate 02/07/24 11:14 02/07/24 07:42 02/07/24 07:21 02/07/24 03:18 02/07/24 00:43 2 Laboratory Results Intake and Output 02/06/24 02/07/24 02/07/24 22:59 06:59 14:59 Intake Total 360 / 1405 150 / 1405 265 / 265 Output Total 800 / 1875 525 / 1875 Balance -440 / -470 -375 / -470 265 / 265 Intake: IV 265 / 265 Vancomycin HCl 750 mg In Sodium 265 / 265 Chloride 0.9% 250 ml @ 200 mls /hr IV Q24H [facility] Rx#:[id number] Oral 360 / 1140 150 / 1140 Output: Urine Amount (Catheter) 800 / 1875 525 / 1875 Bob/Indwelling 800 / 1875 525 / 1875 (2) (HFpEF) heart failure with preserved ejection fraction Heart failure chronicity: chronic Qualified Code(s): I50.32 - Chronic diastolic (congestive) heart failure
[2024-02-07] MEDS: ADVANCED PROBIOTIC 625 MG CAPSULE PO SCH (17:36)
--- NOTE | 2024-02-07 17:57 | Hospitalist Progress Note ---
Date of Service February 07, 2024 Assessment & Plan (1) Acute back pain: (2) Hypertension: (3) Diabetes: (4) Hyperlipidemia: (5) Morbid obesity: (6) (HFpEF) heart failure with preserved ejection fraction: (7) Epidural abscess: (8) Anemia: Plan Ms. 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 As per Prior hospitalist: Patient's postop hgb has ranged Her Hgb was low 7.2-8.2. She was recently admitted to [facility] from 01/06/24 - 01/11/24 and was found to have sepsis/bacteremia and was transferred on 01/10 to [facility] [place] [place] where she underwent C2-C6 debridement under the care of Dr. No with neurosurgery. Cultures grew MRSA; was started on Vancomycin per ID which is to continue @ 750 mg IV daily until 02/21. She has a planned Neurosurgery f/u at [facility] [place] [place] on 02/11. She has been bedbound since 01/06/24. All PT/OT has gotten her up to ambulate, but she can not get up without assistance and she is developing a pressure ulcer from being sedentary. 02/02 Called Transfer Center to discuss with Neurosurgery at [place]. Concern being patient's inability to move 2/2 pain as well as dense numbness and lack of sensation to cold. Spoke to Dr. Villanueva who states he cannot be sure and stated if concerned can send patient to [facility] [place] [place] ED. Per outpatient charts, patient with 2/5 strength in LLE during postop at [place] (not too dissimilar to exam here). There was intent to ensure transfer as exam and symptoms of patient's pain and central canal stenosis was alarming to not only this creative writer, but also Pain Mgmt and Ortho spine; however, upon posing this to patient she refused as she states she doesnt think she would "survive" another surgery. She states she wishes to return to rehab when ready and keep her 02/[address] No. Patient currently undergoing continue IV diuersis and medication optimization. Plan to discontinue coreg (slowly) and increase entresto as tolerated. Patient still with moderate volume overload and can tolerate more IV. Neurogenic claudication 2/2 lumbar stenosis Ambulatory dysfunction Moderate lumbar spinal stenosis -lumbar spine CT: No acute fractures. Severe multilevel degenerative disc disease and facet arthrosis within the lumbar spine. Suboptimal evaluation of the central canal MRI severe multilevel lumbar spinal stenosis with spondylolisthesis Pain control no current surgical candidate due to tx for recent epidural abscess Pain management consult: optimize regimen or limited until procedure? -Continue increased gabapentin to TID -Continue increased clonidine to BID for BP control PT/OT, will need to return to rehab as able Completed Medrol dose pack Case management to help with discharge planning Back pain is controlled Acute hypoxic resp failure 2/2 pulm edema Sinus pause Acute on chronic heart failure with preserved EF HTN: Takes Lasix 80 mg daily; this has been on hold due to renal function 01/09/24 DUANE: No evidence of a valvular vegetation. Small, incidental PFO noted. EF 55-60%. Appreciate Cardiology Input Continue IV Lasix 60mg BID>> transition to oral Lasix 60 mg daily Monitor for pauses Continue Coreg at decreased dose for 3.125 mg BID Increased spironolactone 25mg daily -Continue home Imdur Discontinued amlodipine due to leg edema started on Entresto 103/97 BID Volume status improved Needs follow-up with cardiology on discharge Diarrhea Likely due to IV antibiotics Check stool for C. difficile If stool for C. difficile negative, will add loperamide as needed Acute on chronic anemia stable Iron deficiency Acute Likely multifactorial iso critical illness, noted iron deficiency continue PPI S/P IV Venofer Continue Iron supplements Check CBC tomorrow Recent Epidural Abscess s/p c2-c6 debridement Recent MRSA bacteremia on joint terminal attack controller antimicrobial therapy Recent transfer on 01/10 to [facility] [place] [place] where she underwent C2-C6 debridement under the care of Dr. No with neurosurgery Cultures grew MRSA; was started on Vancomycin per ID which is to continue @ 750 mg IV daily until 02/21. Neurosurgery f/u at [facility] [place] [place] on 02/11 Continue Vancomycin IV [place] removed 02/03, neck incision well approximated, multiple loose thanh Needs follow-up with neurosurgery on discharge Paroxysmal Atrial fibrillation: No prior history of AF, likely in setting of severe illness Continue ASA Metoprolol transitioned to Coreg during last admission Continue low-dose Coreg Pressure ulcer of sacral region, unstageable Continue local wound care Reposition per protocol DVT Px: Heparin SQ Code Status: Full Disposition PT/OT prior to discharge Admission and Anticipated Discharge Date Admission Date: January 30, 2024 Subjective Patient is seen and examined at bedside States having diarrhea today Back pain is well-controlled Family at bedside Denies any chest pain, dyspnea, dizziness, abdominal pain Waiting for placement Review of Systems Review of Systems: All systems reviewed & are unremarkable except as noted in Subjective Physical Exam Physical Exam: Physical Exam: Vitals signs as noted above General Appearance:Morbidly Obese, no apparent distress Head: normocephalic, Atraumatic Eyes: normal inspection, EOMI Neck: supple, Trachea midline, +posterior surgical site Respiratory/Chest: Decreased breath sounds, CTA, No accessory muscle use Cardiovascular: S1, S2, No murmur Abdomen/GI:Soft, Non tender, Bowel sounds present Extremities/Musculoskeletal:normal inspection, 2+ edema--improving Neurologic/Psych:AAOX3, left lower extremity 2/5 otherwise grossly no focal neurological deficits Skin: normal color, warm Results & Data Results & Data Vital Signs (Past 12 Hours) Vital Signs Temp Pulse Pulse Resp BP Pulse Ox O2 Del Method 02/07/24 16:38 36.5 C 65 18 160/75 H Room Air 02/07/24 13:59 65 02/07/24 11:14 36.4 C L 60 18 130/81 93 Room Air 02/07/24 07:42 36.3 C L 58 L 18 160/80 H Room Air 02/07/24 07:21 61 (2) Hypertension Hypertension type: renovascular hypertension Qualified Code(s): I15.0 - Renovascular hypertension (6) (HFpEF) heart failure with preserved ejection fraction Heart failure chronicity: chronic Qualified Code(s): I50.32 - Chronic d iastolic (congestive) heart failure
[2024-02-08 08:05] LABS: Hematocrit (blood only) 28.8 % (37.0-47.0); Hemoglobin 9.2 g/dl (12.0-16.0); Mean Corpuscular Hemoglobin 30.2 pg (25.0-34.0); Mean Corpuscular Hgb Conc 31.9 g/dL (32.0-36.0); Mean Corpuscular Volume 94.4 fL (80.0-100.0); Mean Platelet Volume 9.4 fL (9.4-12.4); Platelet Count 355 K/uL (130-400); RDW Coefficient of Variation 14.8 % (11.5-14.5); RDW Standard Deviation 46.8 fL (36.4-46.3); Red Blood Count 3.05 M/uL (4.20-5.40); White Blood Count 10.67 K/ul (4.8-10.8)
[2024-02-08 08:15] LABS: BUN Creatinine Ratio 35.1 (10-20); Calcium 8.6 mg/dl (8.6-10.3); Creatinine Clr Calc Pharmacy 59.9 ml/min; Potassium 3.4 mmol/L (3.5-5.1)
[2024-02-08] MEDS: POTASSIUM CHLORIDE CRTAB 20 MEQ TABCR PO ONE (14:31)
--- NOTE | 2024-02-08 16:02 | Hospitalist Progress Note ---
Date of Service February 08, 2024 Assessment & Plan (1) Acute back pain: (2) Hypertension: (3) Diabetes: (4) Hyperlipidemia: (5) Morbid obesity: (6) (HFpEF) heart failure with preserved ejection fraction: (7) Epidural abscess: (8) Anemia: Plan Ms. 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 As per Prior hospitalist: Patient's postop hgb has ranged Her Hgb was low 7.2-8.2. She was recently admitted to [facility] from 01/06/24 - 01/11/24 and was found to have sepsis/bacteremia and was transferred on 01/10 to [facility] where she underwent C2-C6 debridement under the care of Dr. No with neurosurgery. Cultures grew MRSA; was started on Vancomycin per ID which is to continue @ 750 mg IV daily until 02/21. She has a planned Neurosurgery f/u at [facility] on 02/11. She has been bedbound since 01/06/24. All PT/OT has gotten her up to ambulate, but she can not get up without assistance and she is developing a pressure ulcer from being sedentary. 02/02 Called Transfer Center to discuss with Neurosurgery at [place]. Concern being patient's inability to move 2/2 pain as well as dense numbness and lack of sensation to cold. Spoke to Dr. Villanueva who states he cannot be sure and stated if concerned can send patient to [facility] ED. Per outpatient charts, patient with 2/5 strength in LLE during postop at [place] (not too dissimilar to exam here). There was intent to ensure transfer as exam and symptoms of patient's pain and central canal stenosis was alarming to not only this junior underwriter, but also Pain Mgmt and Ortho spine; however, upon posing this to patient she refused as she states she doesnt think she would "survive" another surgery. She states she wishes to return to rehab when ready and keep her 02/[address] No. Patient currently undergoing continue IV diuersis and medication optimization. Plan to discontinue coreg (slowly) and increase entresto as tolerated. Patient still with moderate volume overload and can tolerate more IV. Neurogenic claudication 2/2 lumbar stenosis Ambulatory dysfunction Moderate lumbar spinal stenosis -lumbar spine CT: No acute fractures. Severe multilevel degenerative disc disease and facet arthrosis within the lumbar spine. Suboptimal evaluation of the central canal MRI severe multilevel lumbar spinal stenosis with spondylolisthesis Pain control no current surgical candidate due to tx for recent epidural abscess Pain management consult: optimize regimen or limited until procedure? -Continue increased gabapentin to TID -Continue increased clonidine to BID for BP control PT/OT, will need to return to rehab as able Completed Medrol dose pack Case management to help with discharge planning Back pain is controlled Waiting for rehab placement Acute hypoxic resp failure 2/2 pulm edema Sinus pause Acute on chronic heart failure with preserved EF HTN: Takes Lasix 80 mg daily; this has been on hold due to renal function 01/09/24 DUANE: No evidence of a valvular vegetation. Small, incidental PFO noted. EF 55-60%. Appreciate Cardiology Input Continue IV Lasix 60mg BID>> transition to oral Lasix 60 mg daily Monitor for pauses Continue Coreg at decreased dose for 3.125 mg BID Increased spironolactone 25mg daily -Continue home Imdur Discontinued amlodipine due to leg edema started on Entresto 103/97 BID Volume status improved Needs follow-up with cardiology on discharge Saturating well on room air Diarrhea--likely overflow Likely due to IV antibiotics Check stool for C. difficile if reoccurs Resolved Acute on chronic anemia stable Iron deficiency Acute Likely multifactorial iso critical illness, noted iron deficiency continue PPI S/P IV Venofer Continue Iron supplements Hemoglobin stable Recent Epidural Abscess s/p c2-c6 debridement Recent MRSA bacteremia on exterminator antimicrobial therapy Recent transfer on 01/10 to [facility] where she underwent C2-C6 debridement under the care of Dr. No with neurosurgery Cultures grew MRSA; was started on Vancomycin per ID which is to continue @ 750 mg IV daily until 02/21. Neurosurgery f/u at [facility] on 02/11 Continue Vancomycin IV Beatrice removed 02/03, neck incision well approximated, multiple loose thanh Needs follow-up with neurosurgery on discharge Paroxysmal Atrial fibrillation: No prior history of AF, likely in setting of severe illness Continue ASA Metoprolol transitioned to Coreg during last admission Continue low-dose Coreg Pressure ulcer of sacral region, unstageable Continue local wound care Reposition per protocol DVT Px: Heparin SQ Code Status: Full Disposition SNF as able Admission and Anticipated Discharge Date Admission Date: January 30, 2024 Subjective Patient is seen and examined at bedside No new complaints today Diarrhea resolved Back pain is controlled Denies any chest pain, dyspnea, dizziness, abdominal pain Waiting for placement Review of Systems Review of Systems: All systems reviewed & are unremarkable except as noted in Subjective Physical Exam 2 Physical Exam: Physical Exam: Vitals signs as noted above General Appearance:Morbidly Obese, no apparent distress Head: normocephalic, Atraumatic Eyes: normal inspection, EOMI Neck: supple, Trachea midline, +posterior surgical site healing Respiratory/Chest: Decreased breath sounds, CTA, No accessory muscle use Cardiovascular: S1, S2, No murmur Abdomen/GI:Soft, Non tender, Bowel sounds present Extremities/Musculoskeletal:normal inspection, 2+ edema--improved Neurologic/Psych:AAOX3, left lower extremity 2/5 otherwise grossly no focal neurological deficits Skin: normal color, warm Results & Data Results & Data Vital Signs (Past 12 Hours) Vital Signs Temp Pulse Pulse Resp BP Pulse Ox O2 Del Method 02/08/24 14:45 65 02/08/24 13:16 Room Air 02/08/24 11:14 36.7 C 64 18 141/63 H 93 Room Air 02/08/24 08:20 36.9 C 64 18 182/72 H 93 Room Air 02/08/24 07:33 59 L Laboratory Results Short CBC 02/08/24 Range/Units 07:18 WBC 10.67 (4.8-10.8) K/ul Hgb 9.2 L (12.0-16.0) g/dl Hct 28.8 L (37.0-47.0) % Plt Count 355 (130-400) K/uL BMP 02/08/24 07:18 Sodium 142 Potassium 3.4 L Chloride 103 Carbon Dioxide 33 H BUN 34 H Creatinine 0.97 Glucose 125 H Calcium 8.6 (2) Hypertension Hypertension type: renovascular hypertension Qualified Code(s): 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
[2024-02-09 05:03] LABS: BUN Creatinine Ratio 29.4 (10-20); Calcium 8.6 mg/dl (8.6-10.3); Magnesium 1.8 mg/dl (1.7-2.4); Potassium 3.6 mmol/L (3.5-5.1)
--- NOTE | 2024-02-09 14:16 | Hospitalist Progress Note ---
Date of Service February 09, 2024 Assessment & Plan (1) Acute back pain: (2) Hypertension: (3) Diabetes: (4) Hyperlipidemia: (5) Morbid obesity: (6) (HFpEF) heart failure with preserved ejection fraction: (7) Epidural abscess: (8) Anemia: Plan Ms. 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 As per Prior hospitalist: Patient's postop hgb has ranged Her Hgb was low 7.2-8.2. She was recently admitted to [facility] from 01/06/24 - 01/11/24 and was found to have sepsis/bacteremia and was transferred on 01/10 to [facility] where she underwent C2-C6 debridement under the care of Dr. No with neurosurgery. Cultures grew MRSA; was started on Vancomycin per ID which is to continue @ 750 mg IV daily until 02/21. She has a planned Neurosurgery f/u at [facility] on 02/11. She has been bedbound since 01/06/24. All PT/OT has gotten her up to ambulate, but she can not get up without assistance and she is developing a pressure ulcer from being sedentary. 02/02 Called Transfer Center to discuss with Neurosurgery at [place]. Concern being patient's inability to move 2/2 pain as well as dense numbness and lack of sensation to cold. Spoke to Dr. Villanueva who states he cannot be sure and stated if concerned can send patient to [facility] ED. Per outpatient charts, patient with 2/5 strength in LLE during postop at [place] (not too dissimilar to exam here). There was intent to ensure transfer as exam and symptoms of patient's pain and central canal stenosis was alarming to not only this aligner typewriter, but also Pain Mgmt and Ortho spine; however, upon posing this to patient she refused as she states she doesnt think she would "survive" another surgery. She states she wishes to return to rehab when ready and keep her 02/[address] No. Patient currently undergoing continue IV diuersis and medication optimization. Plan to discontinue coreg (slowly) and increase entresto as tolerated. Patient still with moderate volume overload and can tolerate more IV. Neurogenic claudication 2/2 lumbar stenosis Ambulatory dysfunction Moderate lumbar spinal stenosis -lumbar spine CT: No acute fractures. Severe multilevel degenerative disc disease and facet arthrosis within the lumbar spine. Suboptimal evaluation of the central canal MRI severe multilevel lumbar spinal stenosis with spondylolisthesis Pain control no current surgical candidate due to tx for recent epidural abscess Pain management consult: optimize regimen or limited until procedure? -Continue increased gabapentin to TID -Continue increased clonidine to BID for BP control PT/OT, will need to return to rehab as able Completed Medrol dose pack Case management to help with discharge planning Back pain is controlled Waiting for rehab placement Continue current management Acute hypoxic resp failure 2/2 pulm edema Sinus pause Acute on chronic heart failure with preserved EF HTN: Takes Lasix 80 mg daily; this has been on hold due to renal function 01/09/24 DUANE: No evidence of a valvular vegetation. Small, incidental PFO noted. EF 55-60%. Appreciate Cardiology Input Continue IV Lasix 60mg BID>> transition to oral Lasix 60 mg daily Monitor for pauses Continue Coreg at decreased dose for 3.125 mg BID Increased spironolactone 25mg daily -Continue home Imdur Discontinued amlodipine due to leg edema started on Entresto 103/97 BID Volume status improved Needs follow-up with cardiology on discharge Saturating well on room air Continue current diuretics Diarrhea--likely overflow Likely due to IV antibiotics Check stool for C. difficile if reoccurs Resolved Acute on chronic anemia stable Iron deficiency Acute Likely multifactorial iso critical illness, noted iron deficiency continue PPI S/P IV Venofer Continue Iron supplements Hemoglobin stable Recent Epidural Abscess s/p c2-c6 debridement Recent MRSA bacteremia on group home antimicrobial therapy Recent transfer on 01/10 to [facility] where she underwent C2-C6 debridement under the care of Dr. No with neurosurgery Cultures grew MRSA; was started on Vancomycin per ID which is to continue @ 750 mg IV daily until 02/21. Neurosurgery f/u at [facility] on 02/11 Continue Vancomycin IV Warner removed 02/03, neck incision well approximated, multiple loose warner Needs follow-up with neurosurgery on discharge Paroxysmal Atrial fibrillation: No prior history of AF, likely in setting of severe illness Continue ASA Metoprolol transitioned to Coreg during last admission Continue low-dose Coreg Pressure ulcer of sacral region, unstageable Continue local wound care Reposition per protocol DVT Px: Heparin SQ Code Status: Full Disposition SNF as able Admission and Anticipated Discharge Date Admission Date: January 30, 2024 Subjective Patient is seen and examined at bedside States feeling well today No new complaints Denies any chest pain, dyspnea, dizziness, abdominal pain Waiting for placement Review of Systems Review of Systems: All systems reviewed & are unremarkable except as noted in Subjective Physical Exam Physical Exam: Physical Exam: Vitals signs as noted above General Appearance:Morbidly Obese, no apparent distress Head: normocephalic, Atraumatic Eyes: normal inspection, EOMI Neck: supple, Trachea midline, +posterior surgical site healing Respiratory/Chest: Decreased breath sounds, CTA, No accessory muscle use Cardiovascular: S1, S2, No murmur Abdomen/GI:Soft, Non tender, Bowel sounds present Extremities/Musculoskeletal:normal inspection, 2+ edema--improved Neurologic/Psych:AAOX3, left lower extremity 2/5 otherwise grossly no focal neurological deficits Skin: normal color, warm Results & Data Results & Data Vital Signs (Past 12 Hours) Vital Signs Temp Pulse Pulse Resp BP Pulse Ox O2 Del Method 02/09/24 11:56 Room Air 02/09/24 11:35 36.8 C 62 18 147/62 H 95 Room Air 02/09/24 07:46 36.9 C 59 L 17 161/75 H 95 Room Air 02/09/24 05:52 63 02/09/24 04:04 36.6 C 74 16 146/80 H 95 Room Air Laboratory Results [facility] 02/09/24 04:25 Sodium 141 Potassium 3.6 Chloride 105 Carbon Dioxide 31 BUN 30 H Creatinine 1.02 Glucose 139 H Calcium 8.6 (2) Hypertension Hypertension type: renovascular hypertension Qualified Code(s): 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
[2024-02-10 06:58] LABS: Creatinine Clr Calc Pharmacy 55.4 ml/min
--- NOTE | 2024-02-10 07:53 | Pharmacy Report ---
Pharmacy PK ABX Note - Date of Service February 10, 2024 - Assessment and Plan Assessment 02/09 * Vancomycin level this morning was 15.5. She is to remain on vancomycin 750mg iv q 24 hours. * Vanco to continue through 02/21. 02/05 * Ms Escobar is a 78 year old F receiving IV vancomycin for treatment of an epidural abscess. * Pt was admitted from 01/05-01/10 with sepsis/bacteremia and was transferred to [facility] on 01/10 where she underwent C2-C6 debridement w/ neurosurgery. * Pertinent microbiologic data includes: cultures from [facility] growing MRSA. * Other significant PMH includes DM, CHF, CKD stage III * Per ID, vanc is to continue until 02/21. * Renal function remains stable. Plan Vancomycin * Current regimen: 750 mg IV every 24 hours * Trough level obtained 02/10/24 resulted as 15.5 mcg/mL. This is predicted to achieve target AUC/RENAN of 400-600 mg/L.hr * Predicted AUC at steady state: 441 mg/L.hr * Continue 750 mg IV every 24 hours * Repeat random level ordered for: 02/14/24 Pharmacy will continue to follow and will adjust dose/frequency as necessary. Thank you. Pharmacy has transitioned to AUC monitoring for vancomycin. AUC/RENAN is the preferred PK/PD target and is associated with decreased risk of nephrotoxicity compared to traditional trough targets.
--- NOTE | 2024-02-10 14:57 | Hospitalist Progress Note ---
Date of Service February 10, 2024 Assessment & Plan (1) Acute back pain: (2) Hypertension: (3) Diabetes: (4) Hyperlipidemia: (5) Morbid obesity: (6) (HFpEF) heart failure with preserved ejection fraction: (7) Epidural abscess: (8) Anemia: Plan Ms. 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 As per Prior hospitalist: Patient's postop hgb has ranged Her Hgb was low 7.2-8.2. She was recently admitted to [facility] from 01/06/24 - 01/11/24 and was found to have sepsis/bacteremia and was transferred on 01/10 [place] [facility] [place] she underwent C2-C6 debridement under the care of Dr. No with neurosurgery. Cultures grew MRSA; was started on Vancomycin per ID which is to continue @ 750 mg IV daily until 02/21. She has a planned Neurosurgery f/u [place] [facility] [place]. She has been bedbound since 01/06/24. All PT/OT has gotten her up to ambulate, but she can not get up without assistance and she is developing a pressure ulcer from being sedentary. 02/02 Called Transfer Center to discuss with Neurosurgery at [place]. Concern being patient's inability to move 2/2 pain as well as dense numbness and lack of sensation to cold. Spoke to Dr. Villanueva who states he cannot be sure and stated if concerned can send patient to [facility] [place]. Per outpatient charts, patient with 2/5 strength in LLE during postop at [place] (not too dissimilar to exam here). There was intent to ensure transfer as exam and symptoms of patient's pain and central canal stenosis was alarming to not only this automotive service writer, but also Pain Mgmt and Ortho spine; however, upon posing this to patient she refused as she states she doesnt think she would "survive" another surgery. She states she wishes to return to rehab when ready and keep her 02/[address] No. Patient currently undergoing continue IV diuersis and medication optimization. Plan to discontinue coreg (slowly) and increase entresto as tolerated. Patient still with moderate volume overload and can tolerate more IV. Neurogenic claudication 2/2 lumbar stenosis Ambulatory dysfunction Moderate lumbar spinal stenosis -lumbar spine CT: No acute fractures. Severe multilevel degenerative disc disease and facet arthrosis within the lumbar spine. Suboptimal evaluation of the central canal MRI severe multilevel lumbar spinal stenosis with spondylolisthesis Pain control no current surgical candidate due to tx for recent epidural abscess Pain management consult: optimize regimen or limited until procedure? -Continue increased gabapentin to TID -Continue increased clonidine to BID for BP control Completed Medrol dose pack Case management to help with discharge planning Back pain is controlled Waiting for rehab placement Continue PT OT Acute hypoxic resp failure 2/2 pulm edema Sinus pause Acute on chronic heart failure with preserved EF HTN: Takes Lasix 80 mg daily; this has been on hold due to renal function 01/09/24 DUANE: No evidence of a valvular vegetation. Small, incidental PFO noted. EF 55-60%. Appreciate Cardiology Input Continue IV Lasix 60mg BID>> transition to oral Lasix 60 mg daily Monitor for pauses Continue Coreg at decreased dose for 3.125 mg BID Increased spironolactone 25mg daily -Continue home Imdur Discontinued amlodipine due to leg edema started on Entresto 103/97 BID Volume status improved Needs follow-up with cardiology on discharge Saturating well on room air Continue current diuretics Respiratory status at baseline Diarrhea--likely overflow Likely due to IV antibiotics Check stool for C. difficile if reoccurs Resolved Acute on chronic anemia stable Iron deficiency Acute Likely multifactorial iso critical illness, noted iron deficiency continue PPI S/P IV Venofer Continue Iron supplements Hemoglobin stable Recent Epidural Abscess s/p c2-c6 debridement Recent MRSA bacteremia on correction antimicrobial therapy Recent transfer on 01/10 to [facility] where she underwent C2-C6 debridement under the care of Dr. No with neurosurgery Cultures grew MRSA; was started on Vancomycin per ID which is to continue @ 750 mg IV daily until 02/21. Neurosurgery f/u at [facility] [place] 02/11 Continue Vancomycin IV Warner removed 02/03, neck incision well approximated, multiple loose warner Needs follow-up with neurosurgery on discharge Paroxysmal Atrial fibrillation: No prior history of AF, likely in setting of severe illness Continue ASA Metoprolol transitioned to Coreg during last admission Continue low-dose Coreg Pressure ulcer of sacral region, unstageable Continue local wound care Reposition per protocol DVT Px: Heparin SQ Code Status: Full Disposition SNF as able Admission and Anticipated Discharge Date Admission Date: January 30, 2024 Subjective Patient is seen and examined at bedside States having back pain from PT this morning No other complaints today Denies any chest pain, dyspnea, dizziness, abdominal pain Waiting for placement Review of Systems Review of Systems: All systems reviewed & are unremarkable except as noted in Subjective Physical Exam Physical Exam: Physical Exam: Vitals signs as noted above General Appearance:Morbidly Obese, no apparent distress Head: normocephalic, Atraumatic Eyes: normal inspection, EOMI Neck: supple, Trachea midline, +posterior surgical site healing Respiratory/Chest: Decreased breath sounds, CTA, No accessory muscle use Cardiovascular: S1, S2, No murmur Abdomen/GI:Soft, Non tender, Bowel sounds present Extremities/Musculoskeletal:normal inspection, 2+ edema--improved Neurologic/Psych:AAOX3, left lower extremity 2/5 otherwise grossly no focal neurological deficits Skin: normal color, warm Results & Data Results & Data Vital Signs (Past 12 Hours) Vital Signs Temp Pulse Pulse Resp BP Pulse Ox O2 Del Method 02/10/24 11:26 36.4 C L 58 L 18 132/69 95 Room Air 02/10/24 07:32 36.5 C 68 18 152/77 H 92 Room Air 02/10/24 06:54 63 02/10/24 03:12 36.5 C 66 18 154/77 H 94 Room Air Laboratory Results BMP 02/10/24 05:39 Creatinine 1.05 (2) Hypertension Hypertension type: renovascular hypertension Qualified Code(s): 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
[2024-02-11] MEDS: VANCOMYCIN HCL 750 MG in DEXTROSE 5% 250 ML IV SCH (09:14)
--- NOTE | 2024-02-11 16:04 | Hospitalist Progress Note ---
Date of Service February 11, 2024 Assessment & Plan (1) Acute back pain: (2) Hypertension: (3) Diabetes: (4) Hyperlipidemia: (5) Morbid obesity: (6) (HFpEF) heart failure with preserved ejection fraction: (7) Epidural abscess: (8) Anemia: Plan Ms. 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 As per Prior hospitalist: Patient's postop hgb has ranged Her Hgb was low 7.2-8.2. She was recently admitted to [facility] from 01/06/24 - 01/11/24 and was found to have sepsis/bacteremia and was transferred on 01/10 to [facility] where she underwent C2-C6 debridement under the care of Dr. No with neurosurgery. Cultures grew MRSA; was started on Vancomycin per ID which is to continue @ 750 mg IV daily until 02/21. She has a planned Neurosurgery f/u at [facility] on 02/11. She has been bedbound since 01/06/24. All PT/OT has gotten her up to ambulate, but she can not get up without assistance and she is developing a pressure ulcer from being sedentary. 02/02 Called Transfer Center to discuss with Neurosurgery at [place]. Concern being patient's inability to move 2/2 pain as well as dense numbness and lack of sensation to cold. Spoke to Dr. Villanueva who states he cannot be sure and stated if concerned can send patient to [facility] ED. Per outpatient charts, patient with 2/5 strength in LLE during postop at [facility] (not too dissimilar to exam here). There was intent to ensure transfer as exam and symptoms of patient's pain and central canal stenosis was alarming to not only this technical proposal writer, but also Pain Mgmt and Ortho spine; however, upon posing this to patient she refused as she states she doesnt think she would "survive" another surgery. She states she wishes to return to rehab when ready and keep her 02/[address] No. Patient currently undergoing continue IV diuersis and medication optimization. Plan to discontinue coreg (slowly) and increase entresto as tolerated. Patient still with moderate volume overload and can tolerate more IV. Neurogenic claudication 2/2 lumbar stenosis Ambulatory dysfunction Moderate lumbar spinal stenosis -lumbar spine CT: No acute fractures. Severe multilevel degenerative disc disease and facet arthrosis within the lumbar spine. Suboptimal evaluation of the central canal MRI severe multilevel lumbar spinal stenosis with spondylolisthesis Pain control no current surgical candidate due to tx for recent epidural abscess Pain management consult: optimize regimen or limited until procedure? -Continue increased gabapentin to TID -Continue increased clonidine to BID for BP control Completed Medrol dose pack Case management to help with discharge planning Back pain is controlled Continue PT OT Waiting for rehab placement Acute hypoxic resp failure 2/2 pulm edema Sinus pause Acute on chronic heart failure with preserved EF HTN: Takes Lasix 80 mg daily; this has been on hold due to renal function 01/09/24 DUANE: No evidence of a valvular vegetation. Small, incidental PFO noted. EF 55-60%. Appreciate Cardiology Input Continue IV Lasix 60mg BID>> transition to oral Lasix 60 mg daily Monitor for pauses Continue Coreg at decreased dose for 3.125 mg BID Increased spironolactone 25mg daily -Continue home Imdur Discontinued amlodipine due to leg edema started on Entresto 103/97 BID Volume status improved Needs follow-up with cardiology on discharge Saturating well on room air Continue current diuretics Respiratory status at baseline Diarrhea--likely overflow Likely due to IV antibiotics Check stool for C. difficile if reoccurs Resolved Acute on chronic anemia stable Iron deficiency Acute Likely multifactorial iso critical illness, noted iron deficiency continue PPI S/P IV Venofer Continue Iron supplements Hemoglobin stable Recent Epidural Abscess s/p c2-c6 debridement Recent MRSA bacteremia on alf antimicrobial therapy Recent transfer on 01/10 to [facility] where she underwent C2-C6 debridement under the care of Dr. No with neurosurgery Cultures grew MRSA; was started on Vancomycin per ID which is to continue @ 750 mg IV daily until 02/21. Neurosurgery f/u at [facility] on 02/11 Continue Vancomycin IV Warner removed 02/03, neck incision well approximated, multiple loose warner Needs follow-up with neurosurgery on discharge Paroxysmal Atrial fibrillation: No prior history of AF, likely in setting of severe illness Continue ASA Metoprolol transitioned to Coreg during last admission Continue low-dose Coreg Pressure ulcer of sacral region, unstageable Continue local wound care Reposition per protocol DVT Px: Heparin SQ Code Status: Full Disposition SNF as able Admission and Anticipated Discharge Date Admission Date: January 30, 2024 Subjective Patient is seen and examined at bedside Had a long discussion and encouraged to continue PT No new complaints today Denies any chest pain, dyspnea, dizziness, abdominal pain Waiting for placement Review of Systems Review of Systems: All systems reviewed & are unremarkable except as noted in Subjective Physical Exam Physical Exam: Physical Exam: Vitals signs as noted above General Appearance:Morbidly Obese, no apparent distress Head: normocephalic, Atraumatic Eyes: normal inspection, EOMI Neck: supple, Trachea midline, +posterior surgical site healing Respiratory/Chest: Decreased breath sounds, CTA, No accessory muscle use Cardiovascular: S1, S2, No murmur Abdomen/GI:Soft, Non tender, Bowel sounds present Extremities/Musculoskeletal:normal inspection, 2+ edema--improved Neurologic/Psych:AAOX3, left lower extremity 2/5 otherwise grossly no focal neurological deficits Skin: normal color, warm Results & Data Results & Data Vital Signs (Past 12 Hours) Vital Signs Temp Pulse Pulse Resp BP Pulse Ox O2 Del Method 02/11/24 15:07 36.5 C 63 16 130/73 95 Room Air 02/11/24 15:00 63 02/11/24 12:26 36.6 C 62 16 166/69 H 93 Room Air 02/11/24 10:29 Room Air 02/11/24 07:36 36.7 C 64 18 175/68 H 92 Room Air 02/11/24 07:05 66 (2) Hypertension Hypertension type: renovascular hypertension Qualified Code(s): 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
[2024-02-12 06:18] LABS: Hematocrit (blood only) 29.3 % (37.0-47.0); Hemoglobin 9.4 g/dl (12.0-16.0); Mean Corpuscular Hemoglobin 30.7 pg (25.0-34.0); Mean Corpuscular Hgb Conc 32.1 g/dL (32.0-36.0); Mean Corpuscular Volume 95.8 fL (80.0-100.0); Mean Platelet Volume 9.6 fL (9.4-12.4); Platelet Count 326 K/uL (130-400); RDW Coefficient of Variation 15.9 % (11.5-14.5); RDW Standard Deviation 54.6 fL (36.4-46.3); Red Blood Count 3.06 M/uL (4.20-5.40); White Blood Count 8.39 K/ul (4.8-10.8)
[2024-02-12 06:39] LABS: BUN Creatinine Ratio 22.3 (10-20); Calcium 8.5 mg/dl (8.6-10.3); Creatinine Clr Calc Pharmacy 56.5 ml/min; Potassium 3.5 mmol/L (3.5-5.1)
--- NOTE | 2024-02-12 13:24 | Hospitalist Progress Note ---
Date of Service February 12, 2024 Assessment & Plan (1) Acute back pain: (2) Hypertension: (3) Diabetes: (4) Hyperlipidemia: (5) Morbid obesity: (6) (HFpEF) heart failure with preserved ejection fraction: (7) Epidural abscess: (8) Anemia: Plan Ms. 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 As per Prior hospitalist: Patient's postop hgb has ranged Her Hgb was low 7.2-8.2. She was recently admitted to [facility] from 01/06/24 - 01/11/24 and was found to have sepsis/bacteremia and was transferred on 01/10 to [facility] where she underwent C2-C6 debridement under the care of Dr. No with neurosurgery. Cultures grew MRSA; was started on Vancomycin per ID which is to continue @ 750 mg IV daily until 02/21. She has a planned Neurosurgery f/u at [facility] on 02/11. She has been bedbound since 01/06/24. All PT/OT has gotten her up to ambulate, but she can not get up without assistance and she is developing a pressure ulcer from being sedentary. 02/02 Called Transfer Center to discuss with Neurosurgery at [place]. Concern being patient's inability to move 2/2 pain as well as dense numbness and lack of sensation to cold. Spoke to Dr. Villanueva who states he cannot be sure and stated if concerned can send patient to [facility] ED. Per outpatient charts, patient with 2/5 strength in LLE during postop at [facility] (not too dissimilar to exam here). There was intent to ensure transfer as exam and symptoms of patient's pain and central canal stenosis was alarming to not only this press writer, but also Pain Mgmt and Ortho spine; however, upon posing this to patient she refused as she states she doesnt think she would "survive" another surgery. She states she wishes to return to rehab when ready and keep her 02/[address] oN. Patient currently undergoing continue IV diuersis and medication optimization. Plan to discontinue coreg (slowly) and increase Entresto as tolerated. Patient still with moderate volume overload and can tolerate more IV. Neurogenic claudication 2/2 lumbar stenosis Ambulatory dysfunction Moderate lumbar spinal stenosis -lumbar spine CT: No acute fractures. Severe multilevel degenerative disc disease and facet arthrosis within the lumbar spine. Suboptimal evaluation of the central canal MRI severe multilevel lumbar spinal stenosis with spondylolisthesis Pain control No current surgical candidate due to tx for recent epidural abscess Pain management consult: -Continue increased gabapentin to TID -Continue increased clonidine to BID for BP control Completed Medrol dose pack Case management to help with discharge planning Back pain is controlled Continue PT OT Waiting for rehab placement Acute hypoxic resp failure 2/2 pulm edema Sinus pause Acute on chronic heart failure with preserved EF HTN: 01/09/24 DUANE: No evidence of a valvular vegetation. Small, incidental PFO noted. EF 55-60%. Appreciate Cardiology Input Continue IV Lasix 60mg BID>> transition to oral Lasix 60 mg daily Monitor for pauses Continue Coreg at decreased dose for 3.125 mg BID, spironolactone increased to 25mg daily, continue home Imdur Started on Entresto 103/97 BID Discontinued amlodipine due to leg edema Needs follow-up with cardiology on discharge Saturating well on room air Diarrhea--likely overflow -> resolved Likely due to IV antibiotics Check stool for C. difficile if reoccurs Acute on chronic anemia -> back to baseline Iron deficiency Acute Likely multifactorial iso critical illness, noted iron deficiency continue PPI S/P IV Venofer Continue Iron supplements Hemoglobin stable Recent Epidural Abscess s/p c2-c6 debridement Recent MRSA bacteremia on [facility] antimicrobial therapy Recent transfer on 01/10 to [facility] where she underwent C2-C6 debridement under the care of Dr. No with neurosurgery Cultures grew MRSA; was started on Vancomycin per ID which is to continue @ 750 mg IV daily until 02/21. Neurosurgery f/u at [facility] on 02/11 -> will need to be rescheduled Continue Vancomycin IV [place] removed 02/03, neck incision well approximated, multiple loose thanh Needs follow-up with neurosurgery on discharge Paroxysmal Atrial fibrillation: No prior history of AF, likely in setting of severe illness Continue ASA Metoprolol transitioned to Coreg during last admission Continue low-dose Coreg Pressure ulcer of sacral region, unstageable Continue local wound care Reposition per protocol DVT Px: Heparin SQ Code Status: Full Disposition SNF as able Care coordinated with Dr. Cruz. I spent a total of 45 minutes coordinating, documenting, and providing care for this patient excluding time spent in the performance of separately billed services. Admission and Anticipated Discharge Date Admission Date: January 30, 2024 Supervising Physician Co-Signing Physician Notes Patient seen and examined at bedside. Comfortable; not in distress. Denies fever, chills, chest pain, shortness of breath, abdominal pain or urinary symptoms. No significant overnight events Awaiting placement. I have reviewed the advanced practitioner's documentation, and I agree with, and take responsibility for the plan of care I spent a total of 15 minutes coordinating, documenting, and providing care for this patient excluding time spent in the performance of separately billed services. All of the aforementioned completed while collaborating with the assigned advanced practitioner for a full treatment plan Subjective Patient is seen and examined at bedside Had a long discussion and encouraged to continue PT No new complaints today, improved strength in lower extremities since admission Denies any chest pain, dyspnea, dizziness, abdominal pain Waiting for placement Review of Systems Review of Systems: At least ten systems reviewed and negative except as noted in the HPI. Physical Exam Physical Exam: Gen: WD/WN, NAD, resting comfortably in bed, A&Ox3 HEENT: Normocephalic, atraumatic, conjunctivae moist, sclerae anicteric, mucous membranes moist Lung: Clear to Auscultation bilaterally, no wheezes/rales/rhonchi Heart: Regular rate, regular rhythm, no murmurs, rubs, or gallops Abdomen: Soft, NT, ND +BS x 4 Extremities: RLE 4+/5 CHELSIE, LLE 3/5, no edema Skin: Warm, no rash Results & Data Results & Data Vital Signs (Past 12 Hours) Vital Signs Temp Pulse Pulse Resp BP Pulse Ox O2 Del Method 02/12/24 11:56 36.4 C L 66 16 132/63 94 Room Air 02/12/24 08:02 36.4 C L 62 16 171/69 H 92 Room Air 02/12/24 07:00 67 02/12/24 03:17 36.5 C 69 18 153/73 H 92 Room Air Laboratory Results Short CBC 02/12/24 Range/Units 05:57 WBC 8.39 (4.8-10.8) K/ul Hgb 9.4 L (12.0-16.0) g/dl Hct 29.3 L (37.0-47.0) % Plt Count 326 (130-400) K/uL [facility] 02/12/24 05:57 Sodium 140 Potassium 3.5 Chloride 106 Carbon Dioxide 28 BUN 23 Creatinine 1.03 Glucose 126 H Calcium 8.5 L Diagnostic Findings Abdomen/Pelvis CT 01/30/24 14:23 CT OF THE ABDOMEN AND PELVIS WITH CONTRAST CLINICAL HISTORY: Abdominal and back pain. Recent surgery. COMPARISON STUDY: CT of the abdomen and pelvis January 06, 2024. TECHNIQUE: Following IV administration of 118 mL of Optiray, axial images of the abdomen and pelvis were obtained from the lung bases to the proximal femurs. Images were reviewed in the axial, sagittal, and coronal planes. IV contrast was administered without complication. Automated exposure control was utilized for the study. A dose lowering technique was utilized adhering to the principles of ALARA. CT DOSE: 2657.84 mGy.cm FINDINGS: Body wall edema is present. Please note that the chest CT will be reported separately. Bilateral pleural effusions, right larger left, are better depicted on that exam. No pneumatosis, free air or portal venous gas is present. Fat-containing right hepatic lobe lesion is benign. There is no significant biliary ductal dilatation status post cholecystectomy. Trace infrahepatic fluid is noted. There is no evidence for a bowel obstruction. The caliber and wall thickness of small and large bowel are normal. Water attenuation bilateral renal lesions represent cysts. Numerous subcentimeter renal lesions are too small to characterize. There is moderate left renal scarring. There is no hydronephrosis. No fluid collections are identified. The bladder is moderately distended. Please note that the lumbar spine CT will be reported separately. No acute fractures are identified. There is severe multilevel degenerative changes within the lumbar spine. IMPRESSION: 1. No bowel obstruction. No bowel wall thickening. 2. Bilateral pleural effusions right larger than left. Trace ascites. Body wall edema. 3. No lumbar spine fractures. Severe multilevel degenerative changes within the lumbar spine. Please see the lumbar spine report for further description. ACT 112: Negative or not required by law. Electronically signed by: Misha Wilkinson M.D. 01/30/2024 4:17 PM Chest CTA 01/30/24 14:23 CT angio chest PE protocol HISTORY: 78 years-old Female with PE, recent surgery, SOB, back pain. Acute s hortness of breath with back pain TECHNIQUE: Multiple CTA images of the chest were obtained after the intravenous administration of 118 ml Optiray. Coronal and sagittal MIPS were obtained from the axial data set and were submitted for review. All measurements were obtained according to NASCET criteria. A dose lowering technique was utilized adhering to the principles of ALARA. COMPARISON: CT abdomen and pelvis of same day, CT chest 01/06/2024 FINDINGS: CTA: Heart is upper limits of normal in size. No pericardial effusion. Moderate coronary artery calcifications. Atherosclerosis of aorta without aneurysm. No central pulmonary emboli identified. Suboptimal visualization of the subsegmental branches. A right-sided PICC distal tip terminates within the superior cavoatrial junction. CT CHEST: Subcentimeter hypodense thyroid nodules. Borderline enlarged mediastinal and hilar lymph nodes are likely physiologic. Small left and moderate right pleural effusions with dependent bibasilar consolidation suggestive of atelectasis. Mild intralobular septal thickening. No suspicious pulmonary nodules. Central airways are patent. CT abdomen and pelvis is dictated separately. Mild generalized body wall edema. Degenerative changes of the shoulders and spine. Probable cysts of the superior pole left kidney. IMPRESSION: 1. No pulmonary emboli identified. 2. Cardiomegaly with probable mild interstitial pulmonary edema. 3. Small left and moderate right pleural effusions with bibasilar dependent atelectasis. 4. Please refer to the same day CT abdomen and pelvis study for additional findings. ACT 112: Negative or not required by law. The above report was generated using voice recognition software. It may contain grammatical, syntax or spelling errors. Electronically signed by: Gustavo Charles M.D. 01/30/2024 4:[address] 01/30/24 14:23 CT lumbar spine w con CLINICAL HISTORY: lower back pain COMPARISON STUDY: Lumbar spine CT April 20, 2021. Lumbar spine MRI January 06, 2024. TECHNIQUE: Axial images of the lumbar spine were obtained following intravenous menstruation 118 cc of Optiray 320 IV. Sagittal and coronal reconstructions were viewed. Automated exposure control was utilized for the study. A dose lowering technique was utilized adhering to the principles of ALARA. FINDINGS: For purposes of numbering on this exam, the L5-S1 disc space is assigned to axial image 245 of 368. Vertebral body heights are maintained. No lumbar spine fractures are identified. There is severe multilevel facet arthrosis and moderate to severe multilevel disc space narrowing with endplate osteophytosis. Evaluation of the central canal and neural foramen is significant, given artifact and CT technique. Paravertebral soft tissues are unremarkable by CT. No suspicious osseous lesions are present. Multilevel endplate irregularity is likely degenerative. There is vacuum disc phenomenon at the L3-L4, L4-L5 and L5-S1 levels. Slight anterolisthesis of L3 on L4 and L4 and L5 is unchanged from earlier exam. Please note that the abdomen and pelvis CT will be reported separately. IMPRESSION: 1. No lumbar spine fractures. 2. Severe multilevel degenerative disc disease and facet arthrosis within the lumbar spine. 3. Suboptimal evaluation of the central canal given CT technique and artifact. If concern for epidural process, MRI is recommended. ACT 112: Negative or not required by law. Electronically signed by: Misha Wilkinson M.D. 01/30/2024 4:25 PM Lumbar Spine MRI 01/31/24 07:52 MR lumbar spine wo con CLINICAL HISTORY: 78 years-old Female with back pain. Acute low back pain with sepsis. Clinical concern for discitis/osteomyelitis. Large epidural abscess of the cervical spine seen on recent imaging. COMPARISON: CTA chest 01/30/2024, MR lumbar spine 01/06/2024. TECHNIQUE: Multiplanar, multi sequence MRI of the lumbar spine was performed without intravenous contrast. FINDINGS: Motion degraded exam. Mild lumbar levoscoliosis. No paraspinal fluid collections. There is moderate atrophy of the paraspinal musculature. Trace pelvic ascites with diffuse subcutaneous edema within the posterior back. Conus medullaris terminates at L1-L2. Small amount of fluid signal within the T11-T12 disc space is similar to prior. No endplate erosions. This may be on a degenerative basis. There is progressively worsened fluid signal within the L2-L3 and L3-L4 disc spaces. Marrow edema at L3-L4 is again noted with areas of mild endplate irregularity. Mild paravertebral edema. Minimal fluid signal within the L4-L5 and L5-S1 disc spaces is likely degenerative related. T11-T12: Moderate disc space narrowing with circumferential disc osteophyte complex and moderate facet arthrosis. There is moderate central canal stenosis with AP dimension of the thecal sac measuring 6 mm. Severe right with moderate left foraminal stenosis. Findings are unchanged T12-L1: No central canal or neural foraminal stenosis. L1-L2: No central canal or neural foraminal stenosis. L2-L3: Moderate disc space narrowing with circumferential disc osteophyte complex. Ligamentum flavum thickening with advanced facet arthrosis. There is unchanged severe central canal stenosis with AP dimension of the thecal sac measuring 5 mm. Severe right with moderate left foraminal narrowing is unchanged. L3-L4: Mild to moderate intervertebral disc space narrowing. There is moderate spondylotic spurring with circumferential annular disc bulging. Advanced facet arthrosis with small facet effusions. Severe central canal stenosis with AP dimension of the thecal sac measuring 4 mm. Severe narrowing of the lateral recesses. There is moderate to severe narrowing of the neural foramen. There is an unchanged T1 and T2 hypointense 10 x 6 x 9 mm structure on image 19 series 7 and image 8 series 3 which is within the right paracentral distribution posterior to the mid L3 vertebral body suggestive of a sequestered disc fragment versus disc extrusion with superior migration. L4-L5: Severe intervertebral disc space narrowing with unchanged grade 1 anterolisthesis. Spondylotic spurring with circumferential annular disc bulging. Central/left paracentral disc extrusion with superior migration measures 10 x 5 x 9 mm. Ligamentum flavum thickening with advanced facet arthrosis. There is severe left lateral recess narrowing. Moderate to severe central canal stenosis with AP dimension of the thecal sac measuring 6 mm. Moderate to severe left with moderate right foraminal narrowing is unchanged. L5-S1: Moderate to severe intervertebral disc space narrowing with circumferential disc osteophyte complex. Ligamentum flavum thickening with moderate facet arthrosis. Mild central canal stenosis with AP dimension of the thecal sac measuring 8 mm. Severe narrowing of the lateral recesses. Moderate bilateral foraminal narrowing. IMPRESSION: 1. There is progressive fluid signal within the L2-L3 and L3-L4 disc spaces compared to the MRI study from 01/06/2024 which May represent early changes of discitis/osteomyelitis. There is unchanged marrow edema at L3-L4 with mildly progressive paravertebral edema. 2. No epidural or paraspinal abscess identified on this noncontrast study. 3. Discogenic degeneration with spondylotic spurring and facet arthrosis as above again resulting in multilevel central canal and foraminal narrowing. ACT 112: Negative or not required by law. The above report was generated using voice recognition software. It may contain grammatical, syntax or spelling errors. Dictated: 01/31/2024 12:49 PM Transcribed: 01/31/2024 1:28 PM Juan Carlos [id number] Sharath [id number] Electronically signed by: Gustavo Charles M.D. 01/31/2024 4:44 PM Chest X-Ray 02/03/24 07:00 SINGLE VIEW CHEST CLINICAL HISTORY: Follow-up congestive heart failure. FINDINGS: An AP, portable, upright chest radiograph is compared to study dated 01/10/2024 and correlated with chest CT dated 01/30/2024. The examination is degraded by portable technique and apical lordotic positioning. A right-sided PI CC line is unchanged in position. The heart is enlarged noting atherosclerotic calcification of the thoracic aorta. Pulmonary vascular congestion has improved from previous. Small pleural effusions are suspected with dependent atelectasis. No pneumothorax is seen. The skeletal structures are osteopenic. The bony thorax is grossly intact. Degenerative change is noted in the shoulders and spine. IMPRESSION: 1. Cardiomegaly. Pulmonary vascular congestion appears improved from previous. 2. Small pleural effusions. ACT 112: Negative or not required by law. Electronically signed by: Jon Montemayor M.D. 02/03/2024 7:36 AM (2) Hypertension Hypertension type: renovascular hypertension Qualified Code(s): 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
[2024-02-13 07:03] LABS: Creatinine Clr Calc Pharmacy 51.5 ml/min
--- NOTE | 2024-02-13 16:03 | Hospitalist Progress Note ---
Date of Service February 13, 2024 Assessment & Plan (1) Acute back pain: (2) Hypertension: (3) Diabetes: (4) Hyperlipidemia: (5) Morbid obesity: (6) (HFpEF) heart failure with preserved ejection fraction: (7) Epidural abscess: (8) Anemia: Plan Ms. 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 As per Prior hospitalist: Patient's postop hgb has ranged Her Hgb was low 7.2-8.2. She was recently admitted to [facility] from 01/06/24 - 01/11/24 and was found to have sepsis/bacteremia and was transferred on 01/10 to [facility] where she underwent C2-C6 debridement under the care of Dr. No with neurosurgery. Cultures grew MRSA; was started on Vancomycin per ID which is to continue @ 750 mg IV daily until 02/21. She has a planned Neurosurgery f/u at [facility] on 02/11. She has been bedbound since 01/06/24. All PT/OT has gotten her up to ambulate, but she can not get up without assistance and she is developing a pressure ulcer from being sedentary. 02/02 Called Transfer Center to discuss with Neurosurgery at [place]. Concern being patient's inability to move 2/2 pain as well as dense numbness and lack of sensation to cold. Spoke to Dr. Villanueva who states he cannot be sure and stated if concerned can send patient to [facility] ED. Per outpatient charts, patient with 2/5 strength in LLE during postop at [place] (not too dissimilar to exam here). There was intent to ensure transfer as exam and symptoms of patient's pain and central canal stenosis was alarming to not only this publications writer, but also Pain Mgmt and Ortho spine; however, upon posing this to patient she refused as she states she doesnt think she would "survive" another surgery. She states she wishes to return to rehab when ready. Will need her follow up appointment with Dr. No of neurosurgery rescheduled. Neurogenic claudication 2/2 lumbar stenosis Ambulatory dysfunction Moderate lumbar spinal stenosis -lumbar spine CT: No acute fractures. Severe multilevel degenerative disc disease and facet arthrosis within the lumbar spine. Suboptimal evaluation of the central canal MRI severe multilevel lumbar spinal stenosis with spondylolisthesis Pain control No current surgical candidate due to tx for recent epidural abscess Pain management consult: -Continue increased gabapentin to TID -Continue increased clonidine to BID for BP control Completed Medrol dose pack Case management to help with discharge planning Back pain is controlled Continue PT OT Plan for discharge to SNF rehab tomorrow Acute hypoxic resp failure 2/2 pulm edema -> resolved Sinus pause Acute on chronic heart failure with preserved EF -> resolved HTN: 01/09/24 DUANE: No evidence of a valvular vegetation. Small, incidental PFO noted. EF 55-60%. Appreciate Cardiology Input Continue IV Lasix 60mg BID>> transition to oral Lasix 60 mg daily Monitor for pauses Continue Coreg at decreased dose for 3.125 mg BID, spironolactone increased to 25mg daily, continue home Imdur Started on Entresto 103/97 BID Discontinued amlodipine due to leg edema Needs follow-up with cardiology on discharge Saturating well on room air Diarrhea--likely overflow -> resolved Likely due to IV antibiotics Check stool for C. difficile if reoccurs Acute on chronic anemia -> back to baseline Iron deficiency Acute Likely multifactorial iso critical illness, noted iron deficiency continue PPI S/P IV Venofer Continue Iron supplements Hemoglobin stable Recent Epidural Abscess s/p c2-c6 debridement Recent MRSA bacteremia on intermediate antimicrobial therapy Recent transfer on 01/10 to [facility] where she underwent C2-C6 debridement under the care of Dr. No with neurosurgery Cultures grew MRSA; was started on Vancomycin per ID which is to continue @ 750 mg IV daily until 02/21. Neurosurgery f/u at [facility] on 02/11 -> will need to be rescheduled Continue Vancomycin IV Lynn removed 02/03, neck incision well approximated, multiple loose thanh Needs follow-up with neurosurgery on discharge Paroxysmal Atrial fibrillation: No prior history of AF, likely in setting of severe illness Continue ASA Metoprolol transitioned to Coreg during last admission Continue low-dose Coreg Pressure ulcer of sacral region, unstageable Continue local wound care Reposition per protocol DVT Px: Heparin SQ Code Status: Full Disposition SNF as able Care coordinated with Dr. Cruz. I spent a total of 40 minutes coordinating, documenting, and providing care for this patient excluding time spent in the performance of separately billed services. Admission and Anticipated Discharge Date Admission Date: January 30, 2024 Supervising Physician Co-Signing Physician Notes Plan of care discussed with above provider. Noted to have a bump in her creatinine to 1.3 today. Entresto and spironolactone on hold Will follow-up in BMP and possible DC in next couple of days I have reviewed the advanced practitioner's documentation, and I agree with, and take responsibility for the plan of care Subjective Patient is seen and examined at bedside Had a long discussion and encouraged to continue PT No new complaints today, improved strength in lower extremities since admission Denies any chest pain, dyspnea, dizziness, abdominal pain Waiting for placement, likely dc tomorrow Review of Systems Review of Systems: At least ten systems reviewed and negative except as noted in the HPI. Physical Exam Physical Exam: Gen: WD/WN, NAD, resting comfortably in bed, A&Ox3 HEENT: Normocephalic, atraumatic, conjunctivae moist, sclerae anicteric, mucous membranes moist Lung: Clear to Auscultation bilaterally, no wheezes/rales/rhonchi Heart: Regular rate, regular rhythm, no murmurs, rubs, or gallops Abdomen: Soft, NT, ND +BS x 4 Extremities: RLE 4+/5 CHELSIE, LLE 3/5, no edema Skin: Warm, no rash Results & Data Results & Data Vital Signs (Past 12 Hours) Vital Signs Temp Pulse Pulse Resp BP Pulse Ox O2 Del Method 02/13/24 15:21 36.4 C L 71 18 149/71 H 93 Room Air 02/13/24 11:43 36 C L 66 18 157/78 H 94 Room Air 02/13/24 10:50 61 02/13/24 09:47 Room Air 02/13/24 07:55 36.4 C L 59 L 18 179/72 H 90 Room Air 02/13/24 04:25 36.6 C 60 16 148/70 H 95 Room Air (2) Hypertension Hypertension type: renovascular hypertension Qualified Code(s): 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
[2024-02-13] MEDS: MELATONIN 3 MG TAB PO PRN (21:12)
[2024-02-14 06:06] LABS: Creatinine Clr Calc Pharmacy 44.7 ml/min
--- NOTE | 2024-02-14 09:59 | Pharmacy Report ---
Pharmacy PK ABX Note - Date of Service February 14, 2024 - Assessment and Plan Assessment 02/13 * Vancomycin level this AM was 16.6. Predicted AUC within goal of 400-600. Will continue current regimen. Vanco to continue through 02/21. 02/09 * Vancomycin level this morning was 15.5. She is to remain on vancomycin 750mg iv q 24 hours. * Vanco to continue through 02/21. 02/05 * Ms Escobar is a 78 year old F receiving IV vancomycin for treatment of an epidu ral abscess. * Pt was admitted from 01/05-01/10 with sepsis/bacteremia and was transferred to [facility] on 01/10 where she underwent C2-C6 debridement w/ neurosurgery. * Pertinent microbiologic data includes: cultures from C growing MRSA. * Other significant PMH includes DM, CHF, CKD stage III * Per ID, vanc is to continue until 02/21. * Renal function remains stable. Plan Vancomycin * Current regimen: 750 mg IV every 24 hours Pharmacy will continue to follow and will adjust dose/frequency as necessary. Thank you. Pharmacy has transitioned to AUC monitoring for vancomycin. AUC/RENAN is the preferred PK/PD target and is associated with decreased risk of nephrotoxicity compared to traditional trough targets.
[2024-02-14] MEDS: VANCOMYCIN LEVEL ONE (10:18)
--- NOTE | 2024-02-14 12:05 | Hospitalist Progress Note ---
Date of Service February 14, 2024 Assessment & Plan (1) Sacral pressure sore: (2) Neurogenic claudication due to lumbar spinal stenosis: (3) Epidural abscess: (4) (HFpEF) heart failure with preserved ejection fraction: (5) Uncontrolled hypertension: (6) GERD (gastroesophageal reflux disease): (7) Hypertension: (8) Hyperlipidemia: Plan Ms. Escobar s a 78 year old female with complex PMH that includes type 2 diabetes, hyperlipidemia, gout, renal artery stenosis, hypertension, chronic diastolic HFpEF, CKD stage III, GERD, morbid obesity, primary open angle glaucoma right eye moderate stage, history of MRSA infection c/b epidural abscess, spinal stenosis, history of intraductal papilloma of breast, and ATILIO that presented to the ED 01/29 from [facility] for further evaluation of her anemia and acute left leg pain and weakness. As per Prior hospitalist: Patient's postop hgb has ranged Her Hgb was low 7.2-8.2. She was recently admitted to [facility] from 01/06/24 - 01/11/24 and was found to have sepsis/bacteremia and was [place]10 [place] [facility] [place] C2-C6 debridement under the care of Dr. No with neurosurgery. Cultures grew MRSA; was started on Vancomycin per ID which is to continue @ 750 mg IV daily until 02/21. She has a [place] [facility] [place]. She has been bedbound since 01/06/24. All PT/OT has gotten her up to ambulate, but she can not get up without assistance and she is developing a pressure ulcer from being sedentary. 02/02 Called Transfer Center to discuss with Neurosurgery at [place]. Concern being patient's inability to move 2/2 pain as well as dense numbness and lack of sensation to cold. Spoke to Dr. Villanueva who states he cannot be sure and stated if concerned can send patient to [facility] [place]. Per outpatient charts, patient with 2/5 strength in LLE during postop at [place] (not too dissimilar to exam here). There was intent to ensure transfer as exam and symptoms of patient's pain and central canal stenosis was alarming to not only this ghost writer, but also Pain Mgmt and Ortho spine; however, upon posing this to patient she refused as she states she doesn't think she would "survive" another surgery. She states she wishes to return to rehab when ready. Will need her follow up appointment with Dr. No of neurosurgery rescheduled. Assessment and plan: Neurogenic claudicationlumbar stenosis Ambulatory dysfunction Moderate lumbar spinal stenosis Hx epidural abscess s/p C2-6 debridement01/[address] with no acute fractures, MRI showed severe multilevel lumbar spinal stenosis Not a current surgical candidate due to treatment for recent epidural abscess, + MRSA Continue IV Vanco until 02/21 for prior abscess, continue pain management with gabapentin/clonidine AKIprerenal: Creatinine bumped to 1.3, baseline around 1.0, 1.1 Likely multifactoral with IV Vanco/suspect prerenal with recent increase in diuretics Entresto/Aldactone placed on hold, continue Lasix for now, monitor urine outp ut closely Acute hypoxic respiratory failurepulmonary edema resolved Acute on chronic heart failure with preserved EF/HTN: Continue Coreg/Lasix, Aldactone/Entresto placed on hold for ZOILA on 02/13. Hx iron deficiency anemia: Continue PPI/s/p IV Venofer, continue oral iron supplements -Hemoglobin remains stable Hx AF Continue Coreg/ASA Pressure ulcer of sacral region/unstageable Continue local wound care Prediabetes: A1c 6 on 12/2023, continue to monitor outpatient Plan for DC to SNF in the next 24 hours if ZOILA improves A total of 45 minutes was spent in reviewing laboratory data/diagnostic testing/discussion with consultants/facilitating plan of care Full code DVT prophylaxis: Subcu heparin Admission and Anticipated Discharge Date Admission Date: January 30, 2024 Supervising Physician Co-Signing Physician Notes Plan of care discussed with above provider. Noted to have a bump in her creatinine to 1.3 today. Entresto and spironolactone on hold Will follow-up in BMP and possible DC in next couple of days I have reviewed the advanced practitioner's documentation, and I agree with, and take responsibility for the plan of care Subjective Patient seen and examined. No apparent distress. Reports her pain is controlled. Denies any fever/chills overnight. Anxious for discharge. Review of Systems Review of Systems: All systems reviewed & are unremarkable except as noted in HPI & below Physical Exam Constitutional: WD/WN, vitals as above well developed and + ill appearing; no acute distress Eyes: PERRL, conjunctivae normal, anicteric sclerae Neck: trachea midline, no thyromegaly Respiratory: normal respiratory effort, lungs clear to auscultation Cardiovascular: RRR, no murmur, no edema Chest (Breasts): normal inspection/palpation of breasts Gastrointestinal (Abdomen): normal bowel sounds, soft, nontender, no hepatosplenomegaly Percussion/Palpation: abdomen nontender and no guarding Musculoskeletal: no cyanosis or clubbing, extremities motor strength 5/5 Skin: no rashes, warm and dry Neurologic: PERRL, EOMI, accommodation nl, no face palsy, no dysarthria Psychiatric: A+Ox3, euthymic affect Results & Data Results & Data Vital Signs (Past 12 Hours) Vital Signs Temp Pulse Pulse Resp BP Pulse Ox O2 Del Method 02/14/24 08:32 36.5 C 63 18 155/72 H 90 Room Air 02/14/24 07:27 67 02/14/24 03:44 36.9 C 75 16 112/63 94 Room Air 02/14/24 01:53 71 Laboratory Results Laboratory Results WBC 8.39 K/ul (4.8-10.8) 02/12/24 05:57 RBC 3.06 M/uL (4.20-5.40) L 02/12/24 05:57 Hgb 9.4 g/dl (12.0-16.0) L 02/12/24 05:57 Hct 29.3 % (37.0-47.0) L 02/12/24 05:57 MCV 95.8 fL (80.0-100.0) 02/12/24 05:57 MCH 30.7 pg (25.0-34.0) 02/12/24 05:57 MCHC 32.1 g/dL (32.0-36.0) 02/12/24 05:57 RDW Std Deviation 54.6 fL (36.4-46.3) H 02/12/24 05:57 RDW Coeff of Monse 15.9 % (11.5-14.5) H 02/12/24 05:57 Plt Count 326 K/uL (130-400) 02/12/24 05:57 MPV 9.6 fL (9.4-12.4) 02/12/24 05:57 Immature Gran % (Auto) 0.6 % 01/30/24 13:08 Neut % (Auto) 73.0 % 01/30/24 13:08 Lymph % (Auto) 10.5 % 01/30/24 13:08 Lares % (Auto) 8.4 % 01/30/24 13:08 Eos % (Auto) 6.9 % 01/30/24 13:08 Baso % (Auto) 0.6 % 01/30/24 13:08 Reticulocyte % (Auto) 1.73 % (0.50-2.00) 01/31/24 07:42 Neut # (Auto) 7.91 K/uL (1.40-6.50) H 01/30/24 13:08 Lymph # (Auto) 1.14 K/uL (1.20-3.40) L 01/30/24 13:08 Lares # (Auto) 0.91 K/uL (0.11-0.59) H 01/30/24 13:08 Eos # (Auto) 0.75 K/uL (0.00-0.50) H 01/30/24 13:08 Baso # (Auto) 0.07 K/uL (0.00-0.20) 01/30/24 13:08 Reticulocyte # 0.040 10^6/uL (0.020-0.100) 01/31/24 07:42 Immature Gran # (Auto) 0.07 K/uL (0.01-0.20) 01/30/24 13:08 Immature Retic Fraction 28.2 % (2.3-15.9) H 01/31/24 07:42 Retic Hgb Content 26.7 pg (28.2-36.6) L 01/31/24 07:42 Sodium 140 mmol/L (136-145) 02/12/24 05:57 Potassium 3.5 mmol/L (3.5-5.1) 02/12/24 05:57 Chloride 106 mmol/L (98-107) 02/12/24 05:57 Carbon Dioxide 28 mmol/L (21-32) 02/12/24 05:57 Anion Gap 6 (3-11) 02/12/24 05:57 BUN 23 mg/dl (6-23) 02/12/24 05:57 Creatinine 1.30 mg/dl (0.6-1.2) H 02/14/24 05:36 Est Cr Clr Drug Dosing 44.7 ml/min 02/14/24 05:36 eGFR 42.09 02/14/24 05:36 BUN/Creatinine Ratio 22.3 (10-20) H 02/12/24 05:57 Glucose 126 mg/dl (70-99(Fasting)) H 02/12/24 05:57 POC Glucose 161 mg/dl (70-99) H 02/06/24 11:11 Calcium 8.5 mg/dl (8.6-10.3) L 02/12/24 05:57 Phosphorus 3.8 mg/dl (2.5-4.9) 02/02/24 05:50 Magnesium 1.8 mg/dl (1.7-2.4) 02/09/24 04:25 Iron 18 mcg/dl (35-150) L 01/31/24 05:55 TIBC 120 mcg/dl (250-450) L 01/31/24 05:55 Unsaturated IBC 102 mcg/dl (155-355) L 01/31/24 05:55 Transferrin 98 mg/dl (200-360) L 01/30/24 13:05 Transferrin % Sat 15 % (15-50) 01/31/24 05:55 Ferritin 494.7 ng/ml (8-388) H 01/30/24 13:05 Total Bilirubin 0.6 mg/dl (0.2-1.0) 01/30/24 13:08 AST 15 U/L (13-39) 01/30/24 13:08 ALT 14 U/L (7-52) 01/30/24 13:08 Alkaline Phosphatase 63 U/L (34-104) 01/30/24 13:08 B-Natriuretic Peptide 195 pg/ml (0-100) H 01/31/24 05:55 Total Protein 5.3 gm/dl (6.0-8.3) L 01/30/24 13:08 Albumin 2.3 gm/dl (3.4-5.0) L 01/30/24 13:08 Globulin 3.0 gm/dl (2.5-4.0) 01/30/24 13:08 Albumin/Globulin Ratio 0.8 (0.9-2) L 01/30/24 13:08 Vitamin B12 189 pg/ml (180-914) 01/31/24 07:42 Folate 7.95 ng/ml (>5.38) 01/31/24 07:42 TSH 1.847 uIu/ml (0.300-4.500) 02/04/24 06:05 Nasal Screen MRSA (PCR) Negative (Negative) 01/30/24 23:11 Stl C. diff Tox B Gene Cancelled 02/08/24 09:00 Random Vancomycin 16.6 mcg/ml (10-20) 02/14/24 05:36 Impressions Abdomen/Pelvis CT 01/30/24 14:23 CT OF THE ABDOMEN AND PELVIS WITH CONTRAST CLINICAL HISTORY: Abdominal and back pain. Recent surgery. COMPARISON STUDY: CT of the abdomen and pelvis January 06, 2024. TECHNIQUE: Following IV administration of 118 mL of Optiray, axial images of the abdomen and pelvis were obtained from the lung bases to the proximal femurs. Images were reviewed in the axial, sagittal, and coronal planes. IV contrast was administered without complication. Automated exposure control was utilized for the study. A dose lowering technique was utilized adhering to the principles of ALARA. CT DOSE: 2657.84 mGy.cm FINDINGS: Body wall edema is present. Please note that the chest CT will be reported separately. Bilateral pleural effusions, right larger left, are better depicted on that exam. No pneumatosis, free air or portal venous gas is present. Fat-containing right hepatic lobe lesion is benign. There is no significant biliary ductal dilatation status post cholecystectomy. Trace infrahepatic fluid is noted. There is no evidence for a bowel obstruction. The caliber and wall thickness of small and large bowel are normal. Water attenuation bilateral renal lesions represent cysts. Numerous subcentimeter renal lesions are too small to characterize. There is moderate left renal scarring. There is no hydronephrosis. No fluid collections are identified. The bladder is moderately distended. Please note that the lumbar spine CT will be reported separately. No acute fractures are identified. There is severe multilevel degenerative changes within the lumbar spine. IMPRESSION: 1. No bowel obstruction. No bowel wall thickening. 2. Bilateral pleural effusions right larger than left. Trace ascites. Body wall edema. 3. No lumbar spine fractures. Severe multilevel degenerative changes within the lumbar spine. Please see the lumbar spine report for further description. ACT 112: Negative or not required by law. Electronically signed by: Misha Wilkinson M.D. 01/30/2024 4:17 PM Chest CTA 01/30/24 14:23 CT angio chest PE protocol HISTORY: 78 years-old Female with PE, recent surgery, SOB, back pain. Acute shortness of breath with back pain TECHNIQUE: Multiple CTA images of the chest were obtained after the intravenous administration of 118 ml Optiray. Coronal and sagittal MIPS were obtained from the axial data set and were submitted for review. All measurements were obtained according to NASCET criteria. A dose lowering technique was utilized adhering to the principles of ALARA. COMPARISON: CT abdomen and pelvis of same day, CT chest 01/06/2024 FINDINGS: CTA: Heart is upper limits of normal in size. No pericardial effusion. Moderate coronary artery calcifications. Atherosclerosis of aorta without aneurysm. No central pulmonary emboli identified. Suboptimal visualization of the subsegmental branches. A right-sided PICC distal tip terminates within the superior cavoatrial junction. CT CHEST: Subcentimeter hypodense thyroid nodules. Borderline enlarged mediastinal and hilar lymph nodes are likely physiologic. Small left and moderate right pleural effusions with dependent bibasilar consolidation suggestive of atelectasis. Mild intralobular septal thickening. No suspicious pulmonary nodules. Central airways are patent. CT abdomen and pelvis is dictated separately. Mild generalized body wall edema. Degenerative changes of the shoulders and spine. Probable cysts of the superior pole left kidney. IMPRESSION: 1. No pulmonary emboli identified. 2. Cardiomegaly with probable mild interstitial pulmonary edema. 3. Small left and moderate right pleural effusions with bibasilar dependent atelectasis. 4. Please refer to the same day CT abdomen and pelvis study for additional findings. ACT 112: Negative or not required by law. The above report was generated using voice recognition software. It may contain grammatical, syntax or spelling errors. Electronically signed by: Gustavo Charles M.D. 01/30/2024 4:[address] 01/30/24 14:23 CT lumbar spine w con CLINICAL HISTORY: lower back pain COMPARISON STUDY: Lumbar spine CT April 20, 2021. Lumbar spine MRI January 06, 2024. TECHNIQUE: Axial images of the lumbar spine were obtained following intravenous menstruation 118 cc of Optiray 320 IV. Sagittal and coronal reconstructions were viewed. Automated exposure control was utilized for the study. A dose lowering technique was utilized adhering to the principles of ALARA. FINDINGS: For purposes of numbering on this exam, the L5-S1 disc space is assigned to axial image 245 of 368. Vertebral body heights are maintained. No lumbar spine fractures are identified. There is severe multilevel facet arthrosis and moderate to severe multilevel disc space narrowing with endplate osteophytosis. Evaluation of the central canal and neural foramen is significant, given artifact and CT technique. Paravertebral soft tissues are unremarkable by CT. No suspicious osseous lesions are present. Multilevel endplate irregularity is likely degenerative. There is vacuum disc phenomenon at the L3-L4, L4-L5 and L5-S1 levels. Slight anterolisthesis of L3 on L4 and L4 and L5 is unchanged from earlier exam. Please note that the abdomen and pelvis CT will be reported separately. IMPRESSION: 1. No lumbar spine fractures. 2. Severe multilevel degenerative disc disease and facet arthrosis within the lumbar spine. 3. Suboptimal evaluation of the central canal given CT technique and artifact. If concern for epidural process, MRI is recommended. ACT 112: Negative or not required by law. Electronically signed by: Misha Wilkinson M.D. 01/30/2024 4:25 PM Lumbar Spine MRI 01/31/24 07:52 MR lumbar spine wo con CLINICAL HISTORY: 78 years-old Female with back pain. Acute low back pain with sepsis. Clinical concern for discitis/osteomyelitis. Large epidural abscess of the cervical spine seen on recent imaging. COMPARISON: CTA chest 01/30/2024, MR lumbar spine 01/06/2024. TECHNIQUE: Multiplanar, multi sequence MRI of the lumbar spine was performed without intravenous contrast. FINDINGS: Motion degraded exam. Mild lumbar levoscoliosis. No paraspinal fluid collections. There is moderate atrophy of the paraspinal musculature. Trace pelvic ascites with diffuse subcutaneous edema within the posterior back. Conus medullaris terminates at L1-L2. Small amount of fluid signal within the T11-T12 disc space is similar to prior. No endplate erosions. This may be on a degenerative basis. There is progressively worsened fluid signal within the L2-L3 and L3-L4 disc spaces. Marrow edema at L3-L4 is again noted with areas of mild endplate irregularity. Mild paravertebral edema. Minimal fluid signal within the L4-L5 and L5-S1 disc spaces is likely degenerative related. T11-T12: Moderate disc space narrowing with circumferential disc osteophyte complex and moderate facet arthrosis. There is moderate central canal stenosis with AP dimension of the thecal sac measuring 6 mm. Severe right with moderate left foraminal stenosis. Findings are unchanged T12-L1: No central canal or neural foraminal stenosis. L1-L2: No central canal or neural foraminal stenosis. L2-L3: Moderate disc space narrowing with circumferential disc osteophyte complex. Ligamentum flavum thickening with advanced facet arthrosis. There is unchanged severe central canal stenosis with AP dimension of the thecal sac measuring 5 mm. Severe right with moderate left foraminal narrowing is unchanged. L3-L4: Mild to moderate intervertebral disc space narrowing. There is moderate spondylotic spurring with circumferential annular disc bulging. Advanced facet arthrosis with small facet effusions. Severe central canal stenosis with AP dimension of the thecal sac measuring 4 mm. Severe narrowing of the lateral recesses. There is moderate to severe narrowing of the neural foramen. There is an unchanged T1 and T2 hypointense 10 x 6 x 9 mm structure on image 19 series 7 and image 8 series 3 which is within the right paracentral distribution posterior to the mid L3 vertebral body suggestive of a sequestered disc fragment versus disc extrusion with superior migration. L4-L5: Severe intervertebral disc space narrowing with unchanged grade 1 anterolisthesis. Spondylotic spurring with circumferential annular disc bulging. Central/left paracentral disc extrusion with superior migration measures 10 x 5 x 9 mm. Ligamentum flavum thickening with advanced facet arthrosis. There is severe left lateral recess narrowing. Moderate to severe central canal stenosis with AP dimension of the thecal sac measuring 6 mm. Moderate to severe left with moderate right foraminal narrowing is unchanged. L5-S1: Moderate to severe intervertebral disc space narrowing with circumferential disc osteophyte complex. Ligamentum flavum thickening with moderate facet arthrosis. Mild central canal stenosis with AP dimension of the thecal sac measuring 8 mm. Severe narrowing of the lateral recesses. Moderate bilateral foraminal narrowing. IMPRESSION: 1. There is progressive fluid signal within the L2-L3 and L3-L4 disc spaces compared to the MRI study from 01/06/2024 which May represent early changes of discitis/osteomyelitis. There is unchanged marrow edema at L3-L4 with mildly progressive paravertebral edema. 2. No epidural or paraspinal abscess identified on this noncontrast study. 3. Discogenic degeneration with spondylotic spurring and facet arthrosis as above again resulting in multilevel central canal and foraminal narrowing. ACT 112: Negative or not required by law. The above report was generated using voice recognition software. It may contain grammatical, syntax or spelling errors. Dictated: 01/31/2024 12:49 PM Transcribed: 01/31/2024 1:28 PM Juan Carlos [id number] Sharath [id number] Electronically signed by: Gustavo Charles M.D. 01/31/2024 4:44 PM Chest X-Ray 02/03/24 07:00 SINGLE VIEW CHEST CLINICAL HISTORY: Follow-up congestive heart failure. FINDINGS: An AP, portable, upright chest radiograph is compared to study dated 01/10/2024 and correlated with chest CT dated 01/30/2024. The examination is degraded by portable technique and apical lordotic positioning. A right-sided PICC line is unchanged in position. The heart is enlarged noting atherosclerotic calcification of the thoracic aorta. Pulmonary vascular congestion has improved from previous. Small pleural effusions are suspected with dependent atelectasis. No pneumothorax is seen. The skeletal structures are osteopenic. The bony thorax is grossly intact. Degenerative change is noted in the shoulders and spine. IMPRESSION: 1. Cardiomegaly. Pulmonary vascular congestion appears improved from previous. 2. Small pleural effusions. ACT 112: Negative or not required by law. Electronically signed by: Jon Montemayor M.D. 02/03/2024 7:36 AM (4) (HFpEF) heart failure with preserved ejection fraction Heart failure chronicity: chronic Qualified Code(s): I50.32 - Chronic diastolic (congestive) heart failure
[2024-02-14 13:05] LABS: Basophils # (auto) 0.09 K/uL (0.00-0.20); Basophils % (auto) 0.8 %; Eosinophils # (auto) 0.88 K/uL (0.00-0.50); Eosinophils % (auto) 7.5 %; Hematocrit (blood only) 29.1 % (37.0-47.0); Hemoglobin 9.6 g/dl (12.0-16.0); Immature Granulocytes # (auto) 0.06 K/uL (0.01-0.20); Immature Granulocytes % (auto) 0.5 %; Lymphocytes # (auto) 2.26 K/uL (1.20-3.40); Lymphocytes % (auto) 19.2 %; Mean Corpuscular Hemoglobin 31.2 pg (25.0-34.0); Mean Corpuscular Volume 94.5 fL (80.0-100.0); Mean Platelet Volume 9.3 fL (9.4-12.4); Monocytes # (auto) 1.02 K/uL (0.11-0.59); Monocytes % (auto) 8.7 %; Neutrophils # (auto) 7.45 K/uL (1.40-6.50); Neutrophils % (auto) 63.3 %; Platelet Count 374 K/uL (130-400); RDW Coefficient of Variation 16.3 % (11.5-14.5); RDW Standard Deviation 56.8 fL (36.4-46.3); Red Blood Count 3.08 M/uL (4.20-5.40); White Blood Count 11.76 K/ul (4.8-10.8)
[2024-02-14 13:21] LABS: Albumin Level 2.8 gm/dl (3.4-5.0); Bilirubin,Total 0.5 mg/dl (0.2-1.0); Calcium 9.2 mg/dl (8.6-10.3); Creatinine Clr Calc Pharmacy 46.5 ml/min; Globulin 2.9 gm/dl (2.5-4.0); Potassium 3.9 mmol/L (3.5-5.1); Total Protein 5.7 gm/dl (6.0-8.3)
[2024-02-14] MEDS: MAGNESIUM HYDROXIDE SUSP 30 ML UDC PO PRN (15:14)
[2024-02-14] MEDS: DOCUSATE SODIUM 100 MG CAP PO SCH (20:59)
[2024-02-14] MEDS: POLYETHYLENE (MIRALAX) 17 GM PACK PO PRN (21:00)
[2024-02-15 07:48] LABS: Basophils # (auto) 0.08 K/uL (0.00-0.20); Basophils % (auto) 0.9 %; Eosinophils # (auto) 0.75 K/uL (0.00-0.50); Eosinophils % (auto) 8.1 %; Hematocrit (blood only) 29.3 % (37.0-47.0); Hemoglobin 9.5 g/dl (12.0-16.0); Immature Granulocytes # (auto) 0.05 K/uL (0.01-0.20); Immature Granulocytes % (auto) 0.5 %; Lymphocytes % (auto) 21.6 %; Mean Corpuscular Hemoglobin 30.4 pg (25.0-34.0); Mean Corpuscular Hgb Conc 32.4 g/dL (32.0-36.0); Mean Corpuscular Volume 93.9 fL (80.0-100.0); Mean Platelet Volume 9.4 fL (9.4-12.4); Monocytes # (auto) 0.85 K/uL (0.11-0.59); Monocytes % (auto) 9.2 %; Neutrophils # (auto) 5.53 K/uL (1.40-6.50); Neutrophils % (auto) 59.7 %; Platelet Count 381 K/uL (130-400); RDW Coefficient of Variation 16.3 % (11.5-14.5); RDW Standard Deviation 56.6 fL (36.4-46.3); Red Blood Count 3.12 M/uL (4.20-5.40); White Blood Count 9.26 K/ul (4.8-10.8)
[2024-02-15 07:55] LABS: Albumin Globulin Ratio 1.2 (0.9-2); Albumin Level 2.9 gm/dl (3.4-5.0); BUN Creatinine Ratio 24.2 (10-20); Bilirubin,Total 0.4 mg/dl (0.2-1.0); Calcium 9.1 mg/dl (8.6-10.3); Creatinine Clr Calc Pharmacy 46.9 ml/min; Globulin 2.5 gm/dl (2.5-4.0); Potassium 3.8 mmol/L (3.5-5.1); Total Protein 5.4 gm/dl (6.0-8.3)
[2024-02-15] MEDS: bisacodyL 5 MG TABEC PO SCH (10:35)
--- NOTE | 2024-02-15 11:43 | Hospitalist Progress Note ---
Date of Service February 15, 2024 Assessment & Plan (1) Sacral pressure sore: (2) Neurogenic claudication due to lumbar spinal stenosis: (3) Epidural abscess: (4) (HFpEF) heart failure with preserved ejection fraction: (5) Uncontrolled hypertension: (6) GERD (gastroesophageal reflux disease): (7) Hypertension: (8) Hyperlipidemia: Plan Ms. Escobar s a 78 year old female with complex PMH that includes type 2 diabetes, hyperlipidemia, gout, renal artery stenosis, hypertension, chronic diastolic HFpEF, CKD stage III, GERD, morbid obesity, primary open angle glaucoma right eye moderate stage, history of MRSA infection c/b epidural abscess, spinal stenosis, history of intraductal papilloma of breast, and ATILIO that presented to the ED 01/29 from [facility] for further evaluation of her anemia and acute left leg pain and weakness. As per Prior hospitalist: Patient's postop hgb has ranged Her Hgb was low 7.2-8.2. She was recently admitted to [facility] from 01/06/24 - 01/11/24 and was found to have sepsis/bacteremia and was transferred on 01/10 to [facility] where she underwent C2-C6 debridement under the care of Dr. No with neurosurgery. Cultures grew MRSA; was started on Vancomycin per ID which is to continue @ 750 mg IV daily until 02/21. She has a planned Neurosurgery f/u at [facility] on 02/11. She has been bedbound since 01/06/24. All PT/OT has gotten her up to ambulate, but she can not get up without assistance and she is developing a pressure ulcer from being sedentary. 02/02 Called Transfer Center to discuss with Neurosurgery at [place]. Concern being patient's inability to move 2/2 pain as well as dense numbness and lack of sensation to cold. Spoke to Dr. Villanueva who states he cannot be sure and stated if concerned can send patient to [facility] ED. Per outpatient charts, patient with 2/5 strength in LLE during postop at [place] (not too dissimilar to exam here). 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 She states she wishes to return to rehab when ready. Will need her follow up appointment with Dr. No of neurosurgery rescheduled. Assessment and plan: Neurogenic claudicationlumbar stenosis Ambulatory dysfunction Moderate lumbar spinal stenosis Hx epidural abscess s/p C2-6 debridement01/[address] with no acute fractures, MRI showed severe multilevel lumbar spinal stenosis Not a current surgical candidate due to treatment for recent epidural abscess, + MRSA Continue IV Vanco until 02/21 for prior abscess, continue pain management with gabapentin/clonidine AKIprerenal: Creatinine bumped to 1.3, baseline around 1.0, 1.1now trending down Likely multifactoral with IV Vanco/suspect prerenal with recent increase in diuretics Entresto/Aldactone placed on hold, continue Lasix for now, monitor urine output closely Klebsiella UTI: Urine culture on 01/31/2024 + Klebsiella, susceptible to Levaquin Patient complaining of dysuria on 02/13, will start p.o. Levaquin x 5 days on 02/14 Acute hypoxic respiratory failurepulmonary edema resolved Acute on chronic heart failure with preserved EF/HTN: Continue Coreg/Lasix, Aldactone/Entresto placed on hold for ZOILA on 02/13. Hx iron deficiency anemia: Continue PPI/s/p IV Venofer, continue oral iron supplements -Hemoglobin remains stable Hx AF Continue Coreg/ASA Pressure ulcer of sacral region/unstageable Continue local wound care Prediabetes: A1c 6 on 12/2023, continue to monitor outpatient 02/14: Creatinine improved, urine output and blood pressure stabilized. Discussed with case management, often not obtained. Likely ADC to SNF on 02/16. Otherwise, continue current plan of care A total of 45 minutes was spent in reviewing laboratory data/diagnostic testing/discussion with consultants/facilitating plan of care Full code DVT prophylaxis: Subcu heparin Admission and Anticipated Discharge Date Admission Date: January 30, 2024 Supervising Physician Co-Signing Physician Notes Plan of care discussed with above provider. Vitals and lab works stable Patient is pending placement. I have reviewed the advanced practitioner's documentation, and I agree with, and take responsibility for the plan of care Subjective Patient seen and examined. No apparent distress. Reports her pain is controlled. Denies any fever/chills overnight. Anxious for discharge. Review of Systems Review of Systems: All systems reviewed & are unremarkable except as noted in HPI & below Physical Exam Constitutional: WD/WN, vitals as above well developed and well nourished Eyes: PERRL, conjunctivae normal, anicteric sclerae ENMT: external ear and nose normal, oropharynx normal Neck: trachea midline, no thyromegaly Respiratory: normal respiratory effort, lungs clear to auscultation Cardiovascular: RRR, no murmur, no edema Gastrointestinal (Abdomen): normal bowel sounds, soft, nontender, no hepatosplenomegaly Musculoskeletal: no cyanosis or clubbing, extremities motor strength 5/5 Skin: no rashes, warm and dry Neurologic: PERRL, EOMI, accommodation nl, no face palsy, no dysarthria (Bilateral lower extremity weakness-at baseline) Psychiatric: A+Ox3, euthymic affect Results & Data Results & Data Vital Signs (Past 12 Hours) Vital Signs Temp Pulse Resp BP Pulse Ox O2 Del Method 02/15/24 11:25 36.3 C L 59 L 18 158/68 H 94 Room Air 02/15/24 10:14 Room Air 02/15/24 07:35 36.3 C L 61 18 170/72 H 93 Room Air 02/15/24 02:47 36.4 C L 64 18 152/75 H 93 Room Air 02/15/24 00:27 Room Air Diagnostic Findings Laboratory Results WBC 9.26 K/ul (4.8-10.8) 02/15/24 07:07 RBC 3.12 M/uL (4.20-5.40) L 02/15/24 07:07 Hgb 9.5 g/dl (12.0-16.0) L 02/15/24 07:07 Hct 29.3 % (37.0-47.0) L 02/15/24 07:07 MCV 93.9 fL (80.0-100.0) 02/15/24 07:07 MCH 30.4 pg (25.0-34.0) 02/15/24 07:07 MCHC 32.4 g/dL (32.0-36.0) 02/15/24 07:07 RDW Std Deviation 56.6 fL (36.4-46.3) H 02/15/24 07:07 RDW Coeff of Monse 16.3 % (11.5-14.5) H 02/15/24 07:07 Plt Count 381 K/uL (130-400) 02/15/24 07:07 MPV 9.4 fL (9.4-12.4) 02/15/24 07:07 Immature Gran % (Auto) 0.5 % 02/15/24 07:07 Neut % (Auto) 59.7 % 02/15/24 07:07 Lymph % (Auto) 21.6 % 02/15/24 07:07 [place] % (Auto) 9.2 % 02/15/24 07:07 Eos % (Auto) 8.1 % 02/15/24 07:07 Baso % (Auto) 0.9 % 02/15/24 07:07 Reticulocyte % (Auto) 1.73 % (0.50-2.00) 01/31/24 07:42 Neut # (Auto) 5.53 K/uL (1.40-6.50) 02/15/24 07:07 Lymph # (Auto) 2.00 K/uL (1.20-3.40) 02/15/24 07:07 [place] # (Auto) 0.85 K/uL (0.11-0.59) H 02/15/24 07:07 Eos # (Auto) 0.75 K/uL (0.00-0.50) H 02/15/24 07:07 Baso # (Auto) 0.08 K/uL (0.00-0.20) 02/15/24 07:07 Reticulocyte # 0.040 10^6/uL (0.020-0.100) 01/31/24 07:42 Immature Gran # (Auto) 0.05 K/uL (0.01-0.20) 02/15/24 07:07 Immature Retic Fraction 28.2 % (2.3-15.9) H 01/31/24 07:42 Retic Hgb Content 26.7 pg (28.2-36.6) L 01/31/24 07:42 Sodium 140 mmol/L (136-145) 02/15/24 07:07 Potassium 3.8 mmol/L (3.5-5.1) 02/15/24 07:07 Chloride 106 mmol/L (98-107) 02/15/24 07:07 Carbon Dioxide 29 mmol/L (21-32) 02/15/24 07:07 Anion Gap 5 (3-11) 02/15/24 07:07 BUN 30 mg/dl (6-23) H 02/15/24 07:07 Creatinine 1.24 mg/dl (0.6-1.2) H 02/15/24 07:07 Est Cr Clr Drug Dosing 46.9 ml/min 02/15/24 07:07 eGFR 44.54 02/15/24 07:07 BUN/Creatinine Ratio 24.2 (10-20) H 02/15/24 07:07 Glucose 127 mg/dl (70-99(Fasting)) H 02/15/24 07:07 POC Glucose 161 mg/dl (70-99) H 02/06/24 11:11 Calcium 9.1 mg/dl (8.6-10.3) 02/15/24 07:07 Phosphorus 3.8 mg/dl (2.5-4.9) 02/02/24 05:50 Magnesium 1.8 mg/dl (1.7-2.4) 02/09/24 04:25 Iron 18 mcg/dl (35-150) L 01/31/24 05:55 TIBC 120 mcg/dl (250-450) L 01/31/24 05:55 Unsaturated IBC 102 mcg/dl (155-355) L 01/31/24 05:55 Transferrin 98 mg/dl (200-360) L 01/30/24 13:05 Transferrin % Sat 15 % (15-50) 01/31/24 05:55 Ferritin 494.7 ng/ml (8-388) H 01/30/24 13:05 Total Bilirubin 0.4 mg/dl (0.2-1.0) 02/15/24 07:07 AST 12 U/L (13-39) L 02/15/24 07:07 ALT 13 U/L (7-52) 02/15/24 07:07 Alkaline Phosphatase 66 U/L (34-104) 02/15/24 07:07 B-Natriuretic Peptide 195 pg/ml (0-100) H 01/31/24 05:55 Total Protein 5.4 gm/dl (6.0-8.3) L 02/15/24 07:07 Albumin 2.9 gm/dl (3.4-5.0) L 02/15/24 07:07 Globulin 2.5 gm/dl (2.5-4.0) 02/15/24 07:07 Albumin/Globulin Ratio 1.2 (0.9-2) 02/15/24 07:07 Vitamin B12 189 pg/ml (180-914) 01/31/24 07:42 Folate 7.95 ng/ml (>5.38) 01/31/24 07:42 TSH 1.847 uIu/ml (0.300-4.500) 02/04/24 06:05 Nasal Screen MRSA (PCR) Negative (Negative) 01/30/24 23:11 Stl C. diff Tox B Gene Cancelled 02/08/24 09:00 Random Vancomycin 16.6 mcg/ml (10-20) 02/14/24 05:36 Impressions Abdomen/Pelvis CT 01/30/24 14:23 CT OF THE ABDOMEN AND PELVIS WITH CONTRAST CLINICAL HISTORY: Abdominal and back pain. Recent surgery. COMPARISON STUDY: CT of the abdomen and pelvis January 06, 2024. TECHNIQUE: Following IV administration of 118 mL of Optiray, axial images of the abdomen and pelvis were obtained from the lung bases to the proximal femurs. Images were reviewed in the axial, sagittal, and coronal planes. IV contrast was administered without complication. Automated exposure control was utilized for the study. A dose lowering technique was utilized adhering to the principles of ALARA. CT DOSE: 2657.84 mGy.cm FINDINGS: Body wall edema is present. Please note that the chest CT will be reported separately. Bilateral pleural effusions, right larger left, are better depicted on that exam. No pneumatosis, free air or portal venous gas is present. Fat-containing right hepatic lobe lesion is benign. There is no significant biliary ductal dilatation status post cholecystectomy. Trace infrahepatic fluid is noted. There is no evidence for a bowel obstruction. The caliber and wall thickness of small and large bowel are normal. Water attenuation bilateral renal lesions represent cysts. Numerous subcentimeter renal lesions are too small to characterize. There is moderate left renal scarring. There is no hydronephrosis. No fluid collections are identified. The bladder is moderately distended. Please note that the lumbar spine CT will be reported separately. No acute fractures are identified. There is severe multilevel degenerative changes within the lumbar spine. IMPRESSION: 1. No bowel obstruction. No bowel wall thickening. 2. Bilateral pleural effusions right larger than left. Trace ascites. Body wall edema. 3. No lumbar spine fractures. Severe multilevel degenerative changes within the lumbar spine. Please see the lumbar spine report for further description. ACT 112: Negative or not required by law. Electronically signed by: Misha Wilkinson M.D. 01/30/2024 4:17 PM Chest CTA 01/30/24 14:23 CT angio chest PE protocol HISTORY: 78 years-old Female with PE, recent surgery, SOB, back pain. Acute shortness of breath with back pain TECHNIQUE: Multiple CTA images of the chest were obtained after the intravenous administration of 118 ml Optiray. Coronal and sagittal MIPS were obtained from the axial data set and were submitted for review. All measurements were obtained according to NASCET criteria. A dose lowering technique was utilized adhering to the principles of ALARA. COMPARISON: CT abdomen and pelvis of same day, CT chest 01/06/2024 FINDINGS: CTA: Heart is upper limits of normal in size. No pericardial effusion. Moderate coronary artery calcifications. Atherosclerosis of aorta without aneurysm. No central pulmonary emboli identified. Suboptimal visualization of the subsegmental branches. A right-sided PICC distal tip terminates within the superior cavoatrial junction. CT CHEST: Subcentimeter hypodense thyroid nodules. Borderline enlarged mediastinal and hilar lymph nodes are likely physiologic. Small left and moderate right pleural effusions with dependent bibasilar consolidation suggestive of atelectasis. Mild intralobular septal thickening. No suspicious pulmonary nodules. Central airways are patent. CT abdomen and pelvis is dictated separately. Mild generalized body wall edema. Degenerative changes of the shoulders and spine. Probable cysts of the superior pole left kidney. IMPRESSION: 1. No pulmonary emboli identified. 2. Cardiomegaly with probable mild interstitial pulmonary edema. 3. Small left and moderate right pleural effusions with bibasilar dependent atelectasis. 4. Please refer to the same day CT abdomen and pelvis study for additional findings. ACT 112: Negative or not required by law. The above report was generated using voice recognition software. It may contain grammatical, syntax or spelling errors. Electronically signed by: Gustavo Charles M.D. 01/30/2024 4:[address] 01/30/24 14:23 CT lumbar spine w con CLINICAL HISTORY: lower back pain COMPARISON STUDY: Lumbar spine CT April 20, 2021. Lumbar spine MRI January 06, 2024. TECHNIQUE: Axial images of the lumbar spine were obtained following intravenous menstruation 118 cc of Optiray 320 IV. Sagittal and coronal reconstructions were viewed. Automated exposure control was utilized for the study. A dose lowering technique was utilized adhering to the principles of ALARA. FINDINGS: For purposes of numbering on this exam, the L5-S1 disc space is assigned to axial image 245 of 368. Vertebral body heights are maintained. No lumbar spine fractures are identified. There is severe multilevel facet arthrosis and moderate to severe multilevel disc space narrowing with endplate osteophytosis. Evaluation of the central canal and neural foramen is significant, given artifact and CT technique. Paravertebral soft tissues are unremarkable by CT. No suspicious osseous lesions are present. Multilevel endplate irregularity is likely degenerative. There is vacuum disc phenomenon at the L3-L4, L4-L5 and L5-S1 levels. Slight anterolisthesis of L3 on L4 and L4 and L5 is unchanged from earlier exam. Please note that the abdomen and pelvis CT will be reported separately. IMPRESSION: 1. No lumbar spine fractures. 2. Severe multilevel degenerative disc disease and facet arthrosis within the lumbar spine. 3. Suboptimal evaluation of the central canal given CT technique and artifact. If concern for epidural process, MRI is recommended. ACT 112: Negative or not required by law. Electronically signed by: Misha Wilkinson M.D. 01/30/2024 4:25 PM Lumbar Spine MRI 01/31/24 07:52 MR lumbar spine wo con CLINICAL HISTORY: 78 years-old Female with back pain. Acute low back pain with sepsis. Clinical concern for discitis/osteomyelitis. Large epidural abscess of the cervical spine seen on recent imaging. COMPARISON: CTA chest 01/30/2024, MR lumbar spine 01/06/2024. TECHNIQUE: Multiplanar, multi sequence MRI of the lumbar spine was performed without intravenous contrast. FINDINGS: Motion degraded exam. Mild lumbar levoscoliosis. No paraspinal fluid collections. There is moderate atrophy of the paraspinal musculature. Trace pelvic ascites with diffuse subcutaneous edema within the posterior back. Conus medullaris terminates at L1-L2. Small amount of fluid signal within the T11-T12 disc space is similar to prior. No endplate erosions. This may be on a degenerative basis. There is progressively worsened fluid signal within the L2-L3 and L3-L4 disc spaces. Marrow edema at L3-L4 is again noted with areas of mild endplate irregularity. Mild paravertebral edema. Minimal fluid signal within the L4-L5 and L5-S1 disc spaces is likely degenerative related. T11-T12: Moderate disc space narrowing with circumferential disc osteophyte complex and moderate facet arthrosis. There is moderate central canal stenosis with AP dimension of the thecal sac measuring 6 mm. Severe right with moderate left foraminal stenosis. Findings are unchanged T12-L1: No central canal or neural foraminal stenosis. L1-L2: No central canal or neural foraminal stenosis. L2-L3: Moderate disc space narrowing with circumferential disc osteophyte complex. Ligamentum flavum thickening with advanced facet arthrosis. There is unchanged severe central canal stenosis with AP dimension of the thecal sac measuring 5 mm. Severe right with moderate left foraminal narrowing is unchanged. L3-L4: Mild to moderate intervertebral disc space narrowing. There is moderate spondylotic spurring with circumferential annular disc bulging. Advanced facet arthrosis with small facet effusions. Severe central canal stenosis with AP dimension of the thecal sac measuring 4 mm. Severe narrowing of the lateral recesses. There is moderate to severe narrowing of the neural foramen. There is an unchanged T1 and T2 hypointense 10 x 6 x 9 mm structure on image 19 series 7 and image 8 series 3 which is within the right paracentral distribution posterior to the mid L3 vertebral body suggestive of a sequestered disc fragment versus disc extrusion with superior migration. L4-L5: Severe intervertebral disc space narrowing with unchanged grade 1 anterolisthesis. Spondylotic spurring with circumferential annular disc bulging. Central/left paracentral disc extrusion with superior migration measures 10 x 5 x 9 mm. Ligamentum flavum thickening with advanced facet arthrosis. There is severe left lateral recess narrowing. Moderate to severe central canal stenosis with AP dimension of the thecal sac measuring 6 mm. Moderate to severe left with moderate right foraminal narrowing is unchanged. L5-S1: Moderate to severe intervertebral disc space narrowing with circ umferential disc osteophyte complex. Ligamentum flavum thickening with moderate facet arthrosis. Mild central canal stenosis with AP dimension of the thecal sac measuring 8 mm. Severe narrowing of the lateral recesses. Moderate bilateral foraminal narrowing. IMPRESSION: 1. There is progressive fluid signal within the L2-L3 and L3-L4 disc spaces compared to the MRI study from 01/06/2024 which May represent early changes of discitis/osteomyelitis. There is unchanged marrow edema at L3-L4 with mildly progressive paravertebral edema. 2. No epidural or paraspinal abscess identified on this noncontrast study. 3. Discogenic degeneration with spondylotic spurring and facet arthrosis as above again resulting in multilevel central canal and foraminal narrowing. ACT 112: Negative or not required by law. The above report was generated using voice recognition software. It may contain grammatical, syntax or spelling errors. Dictated: 01/31/2024 12:49 PM Transcribed: 01/31/2024 1:28 PM [facility] [id number] [facility] [id number] Electronically signed by: Gustavo Charles M.D. 01/31/2024 4:44 PM Chest X-Ray 02/03/24 07:00 SINGLE VIEW CHEST CLINICAL HISTORY: Follow-up congestive heart failure. FINDINGS: An AP, portable, upright chest radiograph is compared to study dated 01/10/2024 and correlated with chest CT dated 01/30/2024. The examination is degraded by portable technique and apical lordotic positioning. A right-sided PICC line is unchanged in position. The heart is enlarged noting atherosclerotic calcification of the thoracic aorta. Pulmonary vascular congestion has improved from previous. Small pleural effusions are suspected with dependent atelectasis. No pneumothorax is seen. The skeletal structures are osteopenic. The bony thorax is grossly intact. Degenerative change is noted in the shoulders and spine. IMPRESSION: 1. Cardiomegaly. Pulmonary vascular congestion appears improved from previous. 2. Small pleural effusions. ACT 112: Negative or not required by law. Electronically signed by: Jon Montemayor M.D. 02/03/2024 7:36 AM (4) (HFpEF) heart failure with preserved ejection fraction Heart failure chronicity: chronic Qualified Code(s): I50.32 - Chronic diastolic (congestive) heart failure
[2024-02-15] MEDS: levoFLOXacin 500 MG TAB PO ONE (14:43)
[2024-02-16 08:16] LABS: Hematocrit (blood only) 31.4 % (37.0-47.0); Hemoglobin 9.9 g/dl (12.0-16.0); Mean Corpuscular Hemoglobin 30.8 pg (25.0-34.0); Mean Corpuscular Hgb Conc 31.5 g/dL (32.0-36.0); Mean Corpuscular Volume 97.8 fL (80.0-100.0); Mean Platelet Volume 9.3 fL (9.4-12.4); Platelet Count 380 K/uL (130-400); RDW Coefficient of Variation 16.6 % (11.5-14.5); Red Blood Count 3.21 M/uL (4.20-5.40); White Blood Count 9.81 K/ul (4.8-10.8)
[2024-02-16 08:24] LABS: Albumin Globulin Ratio 1.1 (0.9-2); Albumin Level 2.9 gm/dl (3.4-5.0); BUN Creatinine Ratio 23.9 (10-20); Bilirubin,Total 0.4 mg/dl (0.2-1.0); Calcium 9.5 mg/dl (8.6-10.3); Creatinine Clr Calc Pharmacy 43.4 ml/min; Globulin 2.7 gm/dl (2.5-4.0); Total Protein 5.6 gm/dl (6.0-8.3)
--- NOTE | 2024-02-16 09:54 | Hospitalist Progress Note ---
Date of Service February 16, 2024 Assessment & Plan (1) Sacral pressure sore: (2) Neurogenic claudication due to lumbar spinal stenosis: (3) Epidural abscess: (4) (HFpEF) heart failure with preserved ejection fraction: (5) Uncontrolled hypertension: (6) GERD (gastroesophageal reflux disease): (7) Hypertension: (8) Hyperlipidemia: Plan Ms. Escobar s a 78 year old female with complex PMH that includes type 2 diabetes, hyperlipidemia, gout, renal artery stenosis, hypertension, chronic diastolic HFpEF, CKD stage III, GERD, morbid obesity, primary open angle glaucoma right eye moderate stage, history of MRSA infection c/b epidural abscess, spinal stenosis, history of intraductal papilloma of breast, and ATILIO that presented to the ED 01/29 from [facility] for further evaluation of her anemia and acute left leg pain and weakness. As per Prior hospitalist: Patient's postop hgb has ranged Her Hgb was low 7.2-8.2. She was recently admitted to [facility] from 01/06/24 - 01/11/24 and was found to have sepsis/bacteremia and was transferred on 01/10 to [facility] where she underwent C2-C6 debridement under the care of Dr. No with neurosurgery. Cultures grew MRSA; was started on Vancomycin per ID which is to continue @ 750 mg IV daily until 02/21. She has a planned Neurosurgery f/u at [facility] on 02/11. She has been bedbound since 01/06/24. All PT/OT has gotten her up to ambulate, but she can not get up without assistance and she is developing a pressure ulcer from being sedentary. 02/02 Called Transfer Center to discuss with Neurosurgery at [place]. Concern being patient's inability to move 2/2 pain as well as dense numbness and lack of sensation to cold. Spoke to Dr. Villanueva who states he cannot be sure and stated if concerned can send patient to [facility] ED. Per outpatient charts, patient with 2/5 strength in LLE during postop at [place] (not too dissimilar to exam here). There was intent to ensure transfer as exam and symptoms of patient's pain and central canal stenosis was alarming to not only this advertising copywriter, but also Pain Mgmt and Ortho spine; however, upon posing this to patient she refused as she states she doesn't think she would "survive" another surgery. She states she wishes to return to rehab when ready. Will need her follow up appointment with Dr. No of neurosurgery rescheduled. Assessment and plan: Neurogenic claudicationlumbar stenosis Ambulatory dysfunction Moderate lumbar spinal stenosis Hx epidural abscess s/p C2-6 debridement01/[address] with no acute fractures, MRI showed severe multilevel lumbar spinal stenosis Not a current surgical candidate due to treatment for recent epidural abscess, + MRSA Continue IV Vanco until 02/21 for prior abscess, continue pain management with gabapentin/clonidine AKIprerenal: Creatinine bumped to 1.3, baseline around 1.0, 1.1 Likely multifactoral with IV Vanco/suspect prerenal with recent increase in diuretics Entresto/Aldactone placed on hold, continue Lasix for now, monitor urine outp ut closely Klebsiella UTI: Urine culture on 01/31/2024 + Klebsiella, susceptible to Levaquin Patient complaining of dysuria on 02/13, will start p.o. Levaquin x 5 days on 02/14 Acute hypoxic respiratory failurepulmonary edema resolved Acute on chronic heart failure with preserved EF/HTN: Continue Coreg/Lasix, Aldactone/Entresto placed on hold for ZOILA on 02/13. Hx iron deficiency anemia: Continue PPI/s/p IV Venofer, continue oral iron supplements -Hemoglobin remains stable Hx AF Continue Coreg/ASA Pressure ulcer of sacral region/unstageable Continue local wound care Prediabetes: A1c 6 on 12/2023, continue to monitor outpatient 02/15: Discussed with case management, AUTH not obtained. Likely ADC to SNF on 02/16. Otherwise, continue current plan of care A total of 45 minutes was spent in reviewing laboratory data/diagnostic testing/discussion with consultants/facilitating plan of care Full code DVT prophylaxis: Subcu heparin Admission and Anticipated Discharge Date Admission Date: January 30, 2024 Supervising Physician Co-Signing Physician Notes Patient discussed with above provider. Chart reviewed. Vital signs are stable; blood pressure overall better Creatinine of 1.34 with good urine output Possible DC in next few days depending on placement Please note the above document was generated using voice recognition software. It may contain grammatical, syntax or spelling errors. Any formal questions or concerns about the content, text or information contained within the body of this dictation should be directly addressed to the provider for clarification Subjective Patient seen and examined. No apparent distress. Reports her pain is controlled. Denies any fever/chills overnight. Anxious for discharge. Results & Data Results & Data Vital Signs (Past 12 Hours) Vital Signs Temp Pulse Pulse Resp BP Pulse Ox O2 Del Method 02/16/24 08:08 Room Air 02/16/24 07:55 36.3 C L 61 18 155/76 H 95 Room Air 02/16/24 07:08 58 L 02/16/24 03:03 36.5 C 61 18 133/75 95 Room Air 02/15/24 22:44 36.7 C 64 18 155/77 H 93 Room Air 02/15/24 22:36 Room Air (4) (HFpEF) heart failure with preserved ejection fraction Heart failure chronicity: chronic Qualified Code(s): I50.32 - Chronic diastolic (congestive) heart failure
[2024-02-16] MEDS: levoFLOXacin 250 MG TABLET PO SCH (10:31)
[2024-02-16] MEDS: bisacodyL 10 MG SUPP PR PRN (14:44)
[2024-02-16] MEDS: ONDANSETRON INJ 2 MG/ML 2 ML VIAL IV PRN (21:01)
[2024-02-17 06:29] LABS: Basophils % (auto) 0.7 %; Eosinophils # (auto) 0.52 K/uL (0.00-0.50); Eosinophils % (auto) 3.8 %; Immature Granulocytes # (auto) 0.08 K/uL (0.01-0.20); Immature Granulocytes % (auto) 0.6 %; Lymphocytes # (auto) 1.66 K/uL (1.20-3.40); Lymphocytes % (auto) 12.3 %; Mean Corpuscular Hemoglobin 30.6 pg (25.0-34.0); Mean Corpuscular Hgb Conc 31.3 g/dL (32.0-36.0); Mean Corpuscular Volume 97.9 fL (80.0-100.0); Mean Platelet Volume 9.2 fL (9.4-12.4); Monocytes # (auto) 0.93 K/uL (0.11-0.59); Monocytes % (auto) 6.9 %; Neutrophils # (auto) 10.26 K/uL (1.40-6.50); Neutrophils % (auto) 75.7 %; Platelet Count 411 K/uL (130-400); RDW Coefficient of Variation 16.7 % (11.5-14.5); RDW Standard Deviation 59.8 fL (36.4-46.3); Red Blood Count 3.27 M/uL (4.20-5.40); White Blood Count 13.55 K/ul (4.8-10.8)
[2024-02-17 06:37] LABS: Albumin Globulin Ratio 1.2 (0.9-2); BUN Creatinine Ratio 23.5 (10-20); Bilirubin,Total 0.4 mg/dl (0.2-1.0); Calcium 9.5 mg/dl (8.6-10.3); Creatinine Clr Calc Pharmacy 42.8 ml/min; Globulin 2.6 gm/dl (2.5-4.0); Potassium 3.3 mmol/L (3.5-5.1); Total Protein 5.6 gm/dl (6.0-8.3)
[2024-02-17] MEDS: POTASSIUM CHLORIDE CRTAB 20 MEQ TABCR PO STA (09:26)
--- NOTE | 2024-02-17 11:50 | Hospitalist Progress Note ---
Date of Service February 17, 2024 Assessment & Plan (1) Sacral pressure sore: (2) Neurogenic claudication due to lumbar spinal stenosis: (3) Epidural abscess: (4) (HFpEF) heart failure with preserved ejection fraction: (5) Uncontrolled hypertension: (6) GERD (gastroesophageal reflux disease): (7) Hypertension: (8) Hyperlipidemia: Plan Ms. Escobar s a 78 year old female with complex PMH that includes type 2 diabetes, hyperlipidemia, gout, renal artery stenosis, hypertension, chronic diastolic HFpEF, CKD stage III, GERD, morbid obesity, primary open angle glaucoma right eye moderate stage, history of MRSA infection c/b epidural abscess, spinal stenosis, history of intraductal papilloma of breast, and ATILIO that presented to the ED 01/29 from [facility] for further evaluation of her anemia and acute left leg pain and weakness. As per Prior hospitalist: Patient's postop hgb has ranged Her Hgb was low 7.2-8.2. She was recently admitted to [facility] from 01/06/24 - 01/11/24 and was found to have sepsis/bacteremia and was transferred on 01/10 to [facility] where she underwent C2-C6 debridement under the care of Dr. No with neurosurgery. Cultures grew MRSA; was started on Vancomycin per ID which is to continue @ 750 mg IV daily until 02/21. She has a planned Neurosurgery f/u at [facility] on 02/11. She has been bedbound since 01/06/24. All PT/OT has gotten her up to ambulate, but she can not get up without assistance and she is developing a pressure ulcer from being sedentary. 02/02 Called Transfer Center to discuss with Neurosurgery at [place]. Concern being patient's inability to move 2/2 pain as well as dense numbness and lack of sensation to cold. Spoke to Dr. Villanueva who states he cannot be sure and stated if concerned can send patient to [facility] ED. Per outpatient charts, patient with 2/5 strength in LLE during postop at [place] (not too dissimilar to exam here). There was intent to ensure transfer as exam and symptoms of patient's pain and central canal stenosis was alarming to not only this designer/writer, but also Pain Mgmt and Ortho spine; however, upon posing this to patient she refused as she states she doesn't think she would "survive" another surgery. She states she wishes to return to rehab when ready. Will need her follow up appointment with Dr. No of neurosurgery rescheduled. Assessment and plan: Neurogenic claudicationlumbar stenosis Ambulatory dysfunction Moderate lumbar spinal stenosis Hx epidural abscess s/p C2-6 debridement01/[address] with no acute fractures, MRI showed severe multilevel lumbar spinal stenosis Not a current surgical candidate due to treatment for recent epidural abscess, + MRSA Continue IV Vanco until 02/21 for prior abscess, continue pain management with gabapentin/clonidine AKIprerenal: Creatinine bumped to 1.3, baseline around 1.0, 1.1 Likely multifactoral with IV Vanco/suspect prerenal with recent increase in diuretics Entresto/Aldactone placed on hold, continue Lasix for now, monitor urine outp ut closely - recommend we monitor renal function for next 2-3 days, if remains stable ok to resume entresto/aldactone, suspect raise in Cr may be physiological in setting of narendra meds Hypokalemia: replace, keep above 4 Klebsiella UTI: Urine culture on 01/31/2024 + Klebsiella, susceptible to Levaquin Patient complaining of dysuria on 02/13, will start p.o. Levaquin x 5 days on 02/14 Acute hypoxic respiratory failurepulmonary edema resolved Acute on chronic heart failure with preserved EF/HTN: - resolved, euvolemic Continue Coreg/Lasix, Aldactone/Entresto placed on hold for ZOILA on 02/13. Hx iron deficiency anemia: Continue PPI/s/p IV Venofer, continue oral iron supplements -Hemoglobin remains stable at 10.0 Hx AF Continue Coreg/ASA, remains in NSR Pressure ulcer of sacral region/unstageable Continue local wound care Prediabetes: A1c 6 on 12/2023, continue to monitor outpatient DVT prophylaxis: Subcu heparin FULL CODE PCP: Dr. Nessa Foreman Dispo: pt medically stable for discharge once rehab bed available I spent a total of 46 minutes reviewing notes, outpatient records, labs, medication, coordinating, documenting and providing care for this patient excluding time spent in the performance of separately billed services. Admission and Anticipated Discharge Date Admission Date: January 30, 2024 Supervising Physician Co-Signing Physician Notes Chart reviewed. Discussed with above provider. Blood pressure is on the lower side; patient currently unable to tolerate higher dose of Entresto. Currently on hold. Plan to resume at a lower dose if kidney function continues to be stable. Awaiting placement. I have reviewed the advanced practitioner's documentation, and I agree with, and take responsibility for the plan of care Radha SIGALA Pt had 2 large BM today. She reports being constipated and now she is, "emptying out." She feels unwell today as her stomach is unsettled from all the bowel meds. She denies f/c/s, chest pain, sob, vomiting. She does feel nauseated and almost vomiting once. Nurse at bedside offers no concerns and is not concerned with her stool outpt. Review of Systems Review of Systems: All systems reviewed & are unremarkable except as noted in HPI & below Physical Exam Physical Exam: Gen: WD/WN, obese, lying in bed, appears chronically ill, NAD, A&O x3 HEENT: Normocephalic, atraumatic, conjunctivae moist, sclerae anicteric, mucous membranes moist. Lung: Clear to Auscultation bilaterally, no wheezes/rales/rhonchi Heart: Regular rate, regular rhythm, no murmurs, rubs, or gallops Abdomen: obese, Soft, NT, ND +BS x 4 Extremities: No edema, weakness b/l 3/5 Skin: Warm, no rash, negative turgor. Results & Data Results & Data Vital Signs (Past 12 Hours) Vital Signs Temp Pulse Pulse Resp BP Pulse Ox O2 Del Method 02/17/24 11:23 36.3 C L 63 18 136/76 92 Room Air 02/17/24 07:52 36.7 C 69 16 128/70 95 Room Air 02/17/24 07:42 71 02/17/24 03:11 36.4 C L 70 18 109/59 L 93 Room Air Laboratory Results Short CBC 02/17/24 Range/Units 05:33 WBC 13.55 H (4.8-10.8) K/ul Hgb 10.0 L (12.0-16.0) g/dl Hct 32.0 L (37.0-47.0) % Plt Count 411 H (130-400) K/uL BMP 02/17/24 05:33 Sodium 140 Potassium 3.3 L Chloride 106 Carbon Dioxide 26 BUN 32 H Creatinine 1.36 H Glucose 139 H Calcium 9.5 Liver Function 02/17/24 Range/Units 05:33 Total Bilirubin 0.4 (0.2-1.0) mg/dl AST 9 L (13-39) U/L ALT 11 (7-52) U/L Alkaline Phosphatase 71 (34-104) U/L Albumin 3.0 L (3.4-5.0) gm/dl Medications Administered Current Inpatient Medications Acetaminophen (Acetaminophen 500 Mg Tab) 1,000 mg PO Q8 VAN Stop: 03/01/24 10:14 Last Admin: 02/17/24 04:16 Dose: 1,000 mg Al Hydrox/Mg Hydrox/Simethicone (Aluminum/Magnesium Susp 30 Ml Udc) 15 ml PO Q4H PRN PRN Reason: Dyspepsia Stop: 02/29/24 22:31 Aspirin (Aspirin 81 Mg Ectab) 81 mg PO DAILY VAN Stop: 03/01/24 08:59 Last Admin: 02/17/24 09:30 Dose: 81 mg Atorvastatin Calcium (Atorvastatin 20 Mg Tab) 20 mg PO DAILY VAN Stop: 03/01/24 08:59 Last Admin: 02/17/24 09:28 Dose: 20 mg Bisacodyl (Bisacodyl 5 Mg Tabec) 10 mg PO BID VAN Stop: 03/16/24 10:29 Last Admin: 02/17/24 09:26 Dose: Not Given Bisacodyl (Bisacodyl 10 Mg Supp) 10 mg NM DAILY PRN PRN Reason: Constipation Stop: 03/16/24 12:02 Last Admin: 02/16/24 14:44 Dose: 10 mg Calcitriol (Calcitriol 0.25 Mcg Capsule) 0.25 mcg PO TuTh@0900 VAN Stop: 02/29/24 19:44 Last Admin: 02/13/24 09:18 Dose: 0.25 mcg Carvedilol (Carvedilol 3.125 Mg Tab) 3.125 mg PO BIDM VAN Stop: 03/06/24 16:59 Last Admin: 02/17/24 09:28 Dose: 3.125 mg Clonidine HCl (Clonidine Hcl 0.1 Mg Tab) 0.1 mg PO BID VAN Stop: 03/04/24 20:59 Last Admin: 02/17/24 09:26 Dose: 0.1 mg Docusate Sodium (Docusate Sodium 100 Mg Cap) 100 mg PO BID VAN Stop: 03/15/24 20:59 Last Admin: 02/17/24 09:29 Dose: Not Given Ferrous Sulfate (Ferrous Sulfate 325 Mg Tab) 325 mg PO QAM [facility] Stop: 03/04/24 08:59 Last Admin: 02/17/24 09:28 Dose: 325 mg Fluticasone Propionate (Fluticasone Propionate Na Spr 16 Gm Btl) 1 sprays NA DAILY VAN Stop: 03/01/24 08:59 Last Admin: 02/17/24 09:29 Dose: 1 sprays Furosemide (Furosemide 20 Mg Tab) 60 mg PO QAM [facility] Stop: 03/07/24 09:29 Last Admin: 02/17/24 09:29 Dose: 60 mg Gabapentin (Gabapentin 400 Mg Cap) 400 mg PO TID [facility] Stop: 03/04/24 13:59 Last Admin: 02/17/24 09:29 Dose: 400 mg Heparin Sodium (Beef Lung) (Heparin 10 Unit/Ml 5 Ml Flush) 5 ml FLUSH PRN PRN PRN Reason: Flush Stop: 03/01/24 04:10 Last Admin: 02/13/24 09:54 Dose: 5 ml Heparin Sodium (Porcine) (Heparin Sod 5,000 Unit/0.5 Ml Vial) 5,000 units SQ Q8 [facility] Stop: 02/29/24 21:59 Last Admin: 02/17/24 04:16 Dose: 5,000 units Vancomycin HCl 750 mg/ (Dextrose) 265 mls @ 200 mls/hr IV Q24H [facility] Stop: 02/22/24 08:59 Last Infusion: 02/17/24 10:58 Dose: Infused Isosorbide Mononitrate (Isosorbide [place] Extended Rel 30 Mg Tabcr) [facility] [place] Stop: 03/01/24 08:59 Last Admin: 02/17/24 09:30 Dose: 30 mg Lactobacillus Acidophilus (Advanced Probiotic 625 Mg Capsule) 1,250 mg PO DAILY [facility] Stop: 03/08/24 16:59 Last Admin: 02/17/24 09:27 Dose: 1,250 mg Levofloxacin (Levofloxacin 250 Mg Tablet) 250 mg PO DAILY@1100 VAN; Protocol Stop: 02/21/24 10:59 Last Admin: 02/17/24 11:06 Dose: 250 mg Lorazepam (Lorazepam 0.5 Mg Tab) 0.5 mg PO TID PRN PRN Reason: Anxiety Stop: 02/29/24 19:27 Last Admin: 02/16/24 22:41 Dose: 0.5 mg Magnesium Chloride (Magnesium Chloride W/Calcium 64mg Delayed Rel Tab) 128 mg PO BID VAN Stop: 03/05/24 08:59 Last Admin: 02/17/24 09:30 Dose: 128 mg Magnesium Hydroxide (Magnesium Hydroxide Susp 30 Ml Udc) 30 ml PO Q12H PRN PRN Reason: Constipation Stop: 02/29/24 22:31 Last Admin: 02/14/24 15:14 Dose: 30 ml Melatonin (Melatonin 3 Mg Tab) 3 mg PO HS PRN PRN Reason: Sleep Stop: 03/11/24 00:41 Last Admin: 02/16/24 22:41 Dose: 3 mg Miscellaneous Information (Vancomycin Consult Active) 1 each N/A UD PRN PRN Reason: Consult Stop: 02/22/24 21:00 Ondansetron HCl (Ondansetron Inj 2 Mg/Ml 2 Ml Vial) 4 mg IV Q6H PRN PRN Reason: Nausea Stop: 02/29/24 22:31 Last Admin: 02/17/24 11:06 Dose: 4 mg Pantoprazole Sodium (Pantoprazole 40 Mg Tab) 40 mg PO BID VAN Stop: 03/07/24 20:59 Last Admin: 02/17/24 09:28 Dose: 40 mg Polyethylene Glycol (Polyethylene (Miralax) 17 Gm Pack) 17 gm PO DAILY PRN PRN Reason: Constipation Stop: 02/29/24 22:31 Last Admin: 02/14/24 21:00 Dose: 17 gm Potassium Chloride (Potassium Chloride Crtab 20 Meq Tabcr) 20 meq PO QAM [facility] Stop: 03/02/24 08:59 Last Admin: 02/17/24 09:31 Dose: 20 meq Sacubitril/Valsartan (Valsartan/Sacubitril 103/97mg Tab) 1 tab PO BID VAN Stop: 03/06/24 20:59 Last Admin: 02/13/24 21:12 Dose: 1 tab Sodium Chloride (Sodium Chloride 0.65% Na Soln 45 Ml ([place])) 2 sprays NA NOW PRN PRN Reason: Dryness Stop: 03/01/24 22:56 Last Admin: 01/31/24 23:03 Dose: 2 sprays Spironolactone (Spironolactone 25 Mg Tab) 25 mg PO DAILY [facility] Stop: 03/05/24 08:59 Last Admin: 02/13/24 09:21 Dose: 25 mg Trolamine Salicylate (Trolamine Salicylate 10% Crm 255 Appln/85 Gm Tube) 1 appln EXT TID [facility] Stop: 03/02/24 13:59 Last Admin: 02/17/24 09:31 Dose: Not Given (4) (HFpEF) heart failure with preserved ejection fraction Heart failure chronicity: chronic Qualified Code(s): I50.32 - Chronic diastolic (congestive) heart failure
[2024-02-17] MEDS: POTASSIUM CHLORIDE CRTAB 20 MEQ TABCR PO ONE (16:48)
[2024-02-18 06:23] LABS: Basophils # (auto) 0.07 K/uL (0.00-0.20); Basophils % (auto) 0.7 %; Eosinophils # (auto) 0.79 K/uL (0.00-0.50); Eosinophils % (auto) 8.4 %; Hematocrit (blood only) 28.7 % (37.0-47.0); Hemoglobin 9.2 g/dl (12.0-16.0); Immature Granulocytes # (auto) 0.04 K/uL (0.01-0.20); Immature Granulocytes % (auto) 0.4 %; Lymphocytes % (auto) 26.6 %; Mean Corpuscular Hemoglobin 30.8 pg (25.0-34.0); Mean Corpuscular Hgb Conc 32.1 g/dL (32.0-36.0); Mean Platelet Volume 9.3 fL (9.4-12.4); Monocytes # (auto) 0.74 K/uL (0.11-0.59); Monocytes % (auto) 7.9 %; Neutrophils # (auto) 5.27 K/uL (1.40-6.50); Platelet Count 361 K/uL (130-400); RDW Coefficient of Variation 16.9 % (11.5-14.5); RDW Standard Deviation 59.8 fL (36.4-46.3); Red Blood Count 2.99 M/uL (4.20-5.40); White Blood Count 9.41 K/ul (4.8-10.8)
[2024-02-18 06:43] LABS: BUN Creatinine Ratio 20.2 (10-20); Calcium 9.4 mg/dl (8.6-10.3); Creatinine Clr Calc Pharmacy 34.4 ml/min; Potassium 4.3 mmol/L (3.5-5.1)
--- NOTE | 2024-02-18 08:41 | Pharmacy Report ---
Pharmacy PK ABX Note - Date of Service February 18, 2024 - Assessment and Plan Assessment 02/17: * Reviewed vancomycin level this AM, still predicting therapeutic AUC/RENAN. Continue current regimen. Of note, serum creatinine uptrending. Vancomycin regimen to be completed 02/21. No repeat level necessary unless serum creatinine continues to worsen. 02/13 * Vancomycin level this AM was 16.6. Predicted AUC within goal of 400-600. Will continue current regimen. Vanco to continue through 02/21. 02/09 * Vancomycin level this morning was 15.5. She is to remain on vancomycin 750mg iv q 24 hours. * Vanco to continue through 02/21. 02/05 * Ms Escobar is a 78 year old F receiving IV vancomycin for treatment of an epidural abscess. * Pt was admitted from 01/05-01/10 with sepsis/bacteremia and was transferred to [facility] on 01/10 where she underwent C2-C6 debridement w/ neurosurgery. * Pertinent microbiologic data includes: cultures from [facility] growing MRSA. * Other significant PMH includes DM, CHF, CKD stage III * Per ID, vanc is to continue until 02/21. * Renal function remains stable. Plan Vancomycin * Current regimen: 750 mg IV every 24 hours * No repeat level ordered, regimen complete 02/21, will consider level if serum creatinine continues uptrending. Pharmacy will continue to follow and will adjust dose/frequency as necessary. Thank you. Pharmacy has transitioned to AUC monitoring for vancomycin. AUC/RENAN is the preferred PK/PD target and is associated with decreased risk of nephrotoxicity compared to traditional trough targets.
[2024-02-18 10:44] LABS: Appearance Urine Turbid (Clear); Bacteria Urine Automated 3+ (None Seen); Bilirubin Urine Negative (Negative); Blood Urine 1+ (Negative); Cast Urine Automated >20 /lpf (0-2); Color Urine Yellow; Epithelial Cell Urine Auto 0-2 /hpf (0-2); Glucose Urine UA Negative (Negative); Ketones Urine Negative (Negative); Leukocyte Esterase Urine 3+ (Negative); Nitrite Urine Negative (Negative); Protein Urine 2+ (Negative); RBC Urine Automated 0-2 /hpf (0-2); Specific Gravity Urine 1.014 (1.000-1.030); Urobilinogen Urine Negative (Negative); WBC Urine Automated >50 /hpf (0-5); pH Urine 5.5 (4.5-7.5)
--- NOTE | 2024-02-18 15:15 | Hospitalist Progress Note ---
Date of Service February 18, 2024 Assessment & Plan (1) Sacral pressure sore: (2) Neurogenic claudication due to lumbar spinal stenosis: (3) Epidural abscess: (4) (HFpEF) heart failure with preserved ejection fraction: (5) Uncontrolled hypertension: (6) GERD (gastroesophageal reflux disease): (7) Hypertension: (8) Hyperlipidemia: Plan Ms. Escobar s a 78 year old female with complex PMH that includes type 2 diabetes, hyperlipidemia, gout, renal artery stenosis, hypertension, chronic diastolic HFpEF, CKD stage III, GERD, morbid obesity, primary open angle glaucoma right eye moderate stage, history of MRSA infection c/b epidural abscess, spinal stenosis, history of intraductal papilloma of breast, and ATILIO that presented to the ED 01/29 from [facility] for further evaluation of her anemia and acute left leg pain and weakness. As per Prior hospitalist: Patient's postop hgb has ranged Her Hgb was low 7.2-8.2. She was recently admitted to [facility] from 01/06/24 - 01/11/24 and was found to have sepsis/bacteremia and was transferred on 01/10 to [facility] where she underwent C2-C6 debridement under the care of Dr. No with neurosurgery. Cultures grew MRSA; was started on Vancomycin per ID which is to continue @ 750 mg IV daily until 02/21. She has a planned Neurosurgery f/u at [facility] on 02/11. She has been bedbound since 01/06/24. All PT/OT has gotten her up to ambulate, but she can not get up without assistance and she is developing a pressure ulcer from being sedentary. 02/02 Called Transfer Center to discuss with Neurosurgery at [place]. Concern being patient's inability to move 2/2 pain as well as dense numbness and lack of sensation to cold. Spoke to Dr. Villanueva who states he cannot be sure and stated if concerned can send patient to [facility] ED. Per outpatient charts, patient with 2/5 strength in LLE during postop at [facility] (not too dissimilar to exam here). There was intent to ensure transfer as exam and symptoms of patient's pain and central canal stenosis was alarming to not only this board writer, but also Pain Mgmt and Ortho spine; however, upon posing this to patient she refused as she states she doesn't think she would "survive" another surgery. She states she wishes to return to rehab when ready. Will need her follow up appointment with Dr. No of neurosurgery rescheduled. Assessment and plan: Neurogenic claudicationlumbar stenosis Ambulatory dysfunction Moderate lumbar spinal stenosis Hx epidural abscess s/p C2-6 debridement01/[address] with no acute fractures, MRI showed severe multilevel lumbar spinal stenosis Not a current surgical candidate due to treatment for recent epidural abscess, + MRSA Continue IV Vanco until 02/21 for prior abscess, continue pain management with gabapentin/clonidine AKIprerenal: Creatinine bumped to 1.3 --> now 1.6, baseline around 1.0, 1.1 Likely multifactoral with IV Vanco/suspect prerenal with recent increase in diuretics, diarrhea post consitpation and urinary retention Entresto/Aldactone placed on hold - hold LASIX today and re eval to possible resume tomorrow - tubbs cath placed, pt encouraged to hydrated orally today - repeat renal fxn in a.m. - when cr remains stable ok to resume entresto/aldactone Bradycardia intermittent bradycardia with rates in 30s-40s, no skipped beats hold coreg and decrease clonidine to 0.05mg bid Hypokalemia: replaced, keep above 4 Klebsiella UTI: Urine culture on 01/31/2024 + Klebsiella, susceptible to Levaquin Patient complaining of dysuria on 02/13, was given levaquin x 2 days and d/c per DR. Cruz - repeat UA recollected today with catheterization - await culture Acute hypoxic respiratory failurepulmonary edema resolved Acute on chronic heart failure with preserved EF/HTN: - resolved, euvolemic Continue Coreg/Lasix, Aldactone/Entresto placed on hold for ZOILA on 02/13. Hx iron deficiency anemia: Continue PPI/s/p IV Venofer, continue oral iron supplements -Hemoglobin remains stable at 9.2 Hx AF Continue Coreg/ASA, remains in NSR Pressure ulcer of sacral region/unstageable Continue local wound care Prediabetes: A1c 6 on 12/2023, continue to monitor outpatient DVT prophylaxis: Subcu heparin FULL CODE PCP: Dr. Nessa Foreman Dispo: pt not yet medically stable, maybe tomorrow if cr improves I spent a total of 52 minutes reviewing notes, outpatient records, labs, medication, coordinating, documenting and providing care for this patient excluding time spent in the performance of separately billed services. Admission and Anticipated Discharge Date Admission Date: January 30, 2024 Supervising Physician Co-Signing Physician Notes Chart reviewed. Discussed with above provider. Blood pressure is on the lower side; patient currently unable to tolerate higher dose of Entresto. Currently on hold. Urinary retention present; tubbs placed Monitor BMP tomorrow am I have reviewed the advanced practitioner's documentation, and I agree with, and take responsibility for the plan of care Subjective Pt required straight cath last night of 500cc. She had multiple BM yesterday, but has since resolved. Her GI upset as resolved. She didn't eat/drink much yesterday. Denies f/c/s, chest pain, sob, n/v/d. Review of Systems Review of Systems: All systems reviewed & are unremarkable except as noted in HPI & below Physical Exam Physical Exam: Gen: WD/WN, obese, lying in bed, appears chronically ill, NAD, A&O x3 HEENT: Normocephalic, atraumatic, conjunctivae moist, sclerae anicteric, mucous membranes moist. Lung: Clear to Auscultation bilaterally, no wheezes/rales/rhonchi Heart: Regular rate, regular rhythm, no murmurs, rubs, or gallops Abdomen: obese, Soft, NT, ND +BS x 4 Extremities: No edema, weakness b/l 3/5 Skin: Warm, no rash, negative turgor. Results & Data Results & Data Vital Signs (Past 12 Hours) Vital Signs Temp Pulse Pulse Resp BP Pulse Ox O2 Del Method 02/18/24 12:20 37.3 C 55 L 16 117/70 95 Room Air 02/18/24 11:06 36.9 C 63 16 109/61 96 Room Air 02/18/24 08:28 Room Air 02/18/24 07:29 36.8 C 62 16 121/48 L 94 Room Air 02/18/24 07:18 58 L 02/18/24 05:26 36.4 C L 58 L 18 142/73 H 94 Room Air Medications Administered Current Inpatient Medications Acetaminophen (Acetaminophen 500 Mg Tab) 1,000 mg PO Q8 VAN Stop: 03/01/24 10:14 Last Admin: 02/18/24 13:59 Dose: Not Given Al Hydrox/Mg Hydrox/Simethicone (Aluminum/Magnesium Susp 30 Ml Udc) 15 ml PO Q4H PRN PRN Reason: Dyspepsia Stop: 02/29/24 22:31 Aspirin (Aspirin 81 Mg Ectab) 81 mg PO DAILY [facility] Stop: 03/01/24 08:59 Last Admin: 02/18/24 08:41 Dose: 81 mg Atorvastatin Calcium (Atorvastatin 20 Mg Tab) 20 mg PO DAILY VAN Stop: 03/01/24 08:59 Last Admin: 02/18/24 08:41 Dose: 20 mg Bisacodyl (Bisacodyl 5 Mg Tabec) 10 mg PO BID VAN Stop: 03/16/24 10:29 Last Admin: 02/18/24 08:38 Dose: 10 mg Bisacodyl (Bisacodyl 10 Mg Supp) 10 mg MO DAILY PRN PRN Reason: Constipation Stop: 03/16/24 12:02 Last Admin: 02/16/24 14:44 Dose: 10 mg Calcitriol (Calcitriol 0.25 Mcg Capsule) 0.25 mcg PO TuTh@0900 [facility] Stop: 02/29/24 19:44 Last Admin: 02/18/24 08:40 Dose: 0.25 mcg Carvedilol (Carvedilol 3.125 Mg Tab) 3.125 mg PO BIDM [facility] Stop: 03/06/24 16:59 Last Admin: 02/18/24 08:37 Dose: 3.125 mg Clonidine HCl (Clonidine Hcl 0.1 Mg Tab) 0.1 mg PO BID [facility] Stop: 03/04/24 20:59 Last Admin: 02/18/24 09:57 Dose: Not Given Docusate Sodium (Docusate Sodium 100 Mg Cap) 100 mg PO BID [facility] Stop: 03/15/24 20:59 Last Admin: 02/17/24 19:38 Dose: Not Given Ferrous Sulfate (Ferrous Sulfate 325 Mg Tab) 325 mg PO QAM [facility] Stop: 03/04/24 08:59 Last Admin: 02/18/24 08:37 Dose: 325 mg Fluticasone Propionate (Fluticasone Propionate Na Spr 16 Gm Btl) 1 sprays NA DAILY [facility]AN Stop: 03/01/24 08:59 Last Admin: 02/18/24 08:42 Dose: 1 sprays Furosemide (Furosemide 20 Mg Tab) 60 mg PO QAM [facility] Stop: 03/07/24 09:29 Last Admin: 02/17/24 09:29 Dose: 60 mg Gabapentin (Gabapentin 400 Mg Cap) 400 mg PO TID VAN Stop: 03/04/24 13:59 Last Admin: 02/18/24 13:59 Dose: 400 mg Heparin Sodium (Beef Lung) (Heparin 10 Unit/Ml 5 Ml Flush) 5 ml FLUSH PRN PRN PRN Reason: Flush Stop: 03/01/24 04:10 Last Admin: 02/13/24 09:54 Dose: 5 ml Heparin Sodium (Porcine) (Heparin Sod 5,000 Unit/0.5 Ml Vial) 5,000 units SQ Q8 VAN Stop: 02/29/24 21:59 Last Admin: 02/18/24 13:59 Dose: 5,000 units Vancomycin HCl 750 mg/ (Dextrose) 265 mls @ 200 mls/hr IV Q24H [facility]AN Stop: 02/22/24 08:59 Last Infusion: 02/18/24 11:04 Dose: Infused Isosorbide Mononitrate (Isosorbide [place] Extended Rel 30 Mg Tabcr) 30 mg PO QAM [facility] Stop: 03/01/24 08:59 Last Admin: 02/18/24 08:41 Dose: 30 mg Lactobacillus Acidophilus (Advanced Probiotic 625 Mg Capsule) 1,250 mg PO DAILY [facility] Stop: 03/08/24 16:59 Last Admin: 02/18/24 08:40 Dose: 1,250 mg Lorazepam (Lorazepam 0.5 Mg Tab) 0.5 mg PO TID PRN PRN Reason: Anxiety Stop: 02/29/24 19:27 Last Admin: 02/17/24 22:42 Dose: 0.5 mg Magnesium Chloride (Magnesium Chloride W/Calcium 64mg Delayed Rel Tab) 128 mg PO BID [facility]AN Stop: 03/05/24 08:59 Last Admin: 02/18/24 08:38 Dose: 128 mg Magnesium Hydroxide (Magnesium Hydroxide Susp 30 Ml Udc) 30 ml PO Q12H PRN PRN Reason: Constipation Stop: 02/29/24 22:31 Last Admin: 02/14/24 15:14 Dose: 30 ml Melatonin (Melatonin 3 Mg Tab) 3 mg PO HS PRN PRN Reason: Sleep Stop: 03/11/24 00:41 Last Admin: 02/17/24 20:51 Dose: 3 mg Miscellaneous Information (Vancomycin Consult Active) 1 each N/A UD PRN PRN Reason: Consult Stop: 02/22/24 21:00 Ondansetron HCl (Ondansetron Inj 2 Mg/Ml 2 Ml Vial) 4 mg IV Q6H PRN PRN Reason: Nausea Stop: 02/29/24 22:31 Last Admin: 02/17/24 11:06 Dose: 4 mg Pantoprazole Sodium (Pantoprazole 40 Mg Tab) 40 mg PO BID [facility]AN Stop: 03/07/24 20:59 Last Admin: 02/18/24 08:37 Dose: 40 mg Polyethylene Glycol (Polyethylene (Miralax) 17 Gm Pack) 17 gm PO DAILY PRN PRN Reason: Constipation Stop: 02/29/24 22:31 Last Admin: 02/14/24 21:00 Dose: 17 gm Potassium Chloride (Potassium Chloride Crtab 20 Meq Tabcr) 20 meq PO QAM [facility] Stop: 03/02/24 08:59 Last Admin: 02/18/24 08:40 Dose: 20 meq Sacubitril/Valsartan (Valsartan/Sacubitril 103/97mg Tab) 1 tab PO BID [facility]AN Stop: 03/06/24 20:59 Last Admin: 02/13/24 21:12 Dose: 1 tab Sodium Chloride (Sodium Chloride 0.65% Na Soln 45 Ml ([place])) 2 sprays NA NOW PRN PRN Reason: Dryness Stop: 03/01/24 22:56 Last Admin: 01/31/24 23:03 Dose: 2 sprays Spironolactone (Spironolactone 25 Mg Tab) 25 mg PO DAILY [facility] Stop: 03/05/24 08:59 Last Admin: 02/13/24 09:21 Dose: 25 mg Trolamine Salicylate (Trolamine Salicylate 10% Crm 255 Appln/85 Gm Tube) 1 appln EXT TID [facility] Stop: 03/02/24 13:59 Last Admin: 02/18/24 14:00 Dose: 1 appln (4) (HFpEF) heart failure with preserved ejection fraction Heart failure chronicity: chronic Qualified Code(s): I50.32 - Chronic diastolic (congestive) heart failure
[2024-02-18] MEDS: cloNIDine HCL 0.1 MG TAB PO SCH (20:48)
[2024-02-19 06:56] LABS: Hematocrit (blood only) 28.8 % (37.0-47.0); Hemoglobin 9.2 g/dl (12.0-16.0); Mean Corpuscular Hemoglobin 30.9 pg (25.0-34.0); Mean Corpuscular Hgb Conc 31.9 g/dL (32.0-36.0); Mean Corpuscular Volume 96.6 fL (80.0-100.0); Mean Platelet Volume 8.9 fL (9.4-12.4); Platelet Count 298 K/uL (130-400); RDW Coefficient of Variation 16.6 % (11.5-14.5); RDW Standard Deviation 59.4 fL (36.4-46.3); Red Blood Count 2.98 M/uL (4.20-5.40); White Blood Count 8.27 K/ul (4.8-10.8)
[2024-02-19 07:18] LABS: BUN Creatinine Ratio 20.8 (10-20); Calcium 9.5 mg/dl (8.6-10.3); Creatinine Clr Calc Pharmacy 37.6 ml/min; Potassium 4.2 mmol/L (3.5-5.1)
--- NOTE | 2024-02-19 10:28 | Hospitalist Progress Note ---
Date of Service February 19, 2024 Assessment & Plan (1) Sacral pressure sore: (2) Neurogenic claudication due to lumbar spinal stenosis: (3) Epidural abscess: (4) (HFpEF) heart failure with preserved ejection fraction: (5) Uncontrolled hypertension: (6) GERD (gastroesophageal reflux disease): (7) Hypertension: (8) Hyperlipidemia: Plan Ms. Escobar s a 78 year old female with complex PMH that includes type 2 diabetes, hyperlipidemia, gout, renal artery stenosis, hypertension, chronic diastolic HFpEF, CKD stage III, GERD, morbid obesity, primary open angle glaucoma right eye moderate stage, history of MRSA infection c/b epidural abscess, spinal stenosis, history of intraductal papilloma of breast, and ATILIO that presented to the ED 01/29 from [facility] for further evaluation of her anemia and acute left leg pain and weakness. As per Prior hospitalist: Patient's postop hgb has ranged Her Hgb was low 7.2-8.2. She was recently admitted to [facility] from 01/06/24 - 01/11/24 and was found to have sepsis/bacteremia and was transferred on 01/10 to [facility] where she underwent C2-C6 debridement under the care of Dr. No with neurosurgery. Cultures grew MRSA; was started on Vancomycin per ID which is to continue @ 750 mg IV daily until 02/21. She has a planned Neurosurgery f/u at [facility] on 02/11. She has been bedbound since 01/06/24. All PT/OT has gotten her up to ambulate, but she can not get up without assistance and she is developing a pressure ulcer from being sedentary. 02/02 Called Transfer Center to discuss with Neurosurgery at [place]. Concern being patient's inability to move 2/2 pain as well as dense numbness and lack of sensation to cold. Spoke to Dr. Villanueva who states he cannot be sure and stated if concerned can send patient to [facility] ED. Per outpatient charts, patient with 2/5 strength in LLE during postop at [place] (not too dissimilar to exam here). There was intent to ensure transfer as exam and symptoms of patient's pain and central canal stenosis was alarming to not only this policy writer, but also Pain Mgmt and Ortho spine; however, upon posing this to patient she refused as she states she doesn't think she would "survive" another surgery. She states she wishes to return to rehab when ready. Will need her follow up appointment with Dr. No of neurosurgery rescheduled. Assessment and plan: Neurogenic claudicationlumbar stenosis Ambulatory dysfunction Moderate lumbar spinal stenosis Hx epidural abscess s/p C2-6 debridement01/[address] with no acute fractures, MRI showed severe multilevel lumbar spinal stenosis Not a current surgical candidate due to treatment for recent epidural abscess, + MRSA Continue IV Vanco until 02/21 for prior abscess, continue pain management with gabapentin/clonidine AKIprerenal: Creatinine bumped to 1.3 --> 1.6 --> 1.49, baseline around 1.0, 1.1 Likely multifactorial with IV Vanco/suspect prerenal with recent increase in diuretics, diarrhea post constipation and urinary retention Entresto/Aldactone placed on hold - Continue to hold LASIX today and re eval to possible resume tomorrow - tubbs cath placed, pt encouraged to hydrated orally - repeat renal fxn in a.m. - when cr remains stable ok to resume lasix, entresto/aldactone Bradycardia intermittent bradycardia with rates in 30s-40s, no skipped beats on 02/17 hold coreg and decrease clonidine to 0.05mg bid appears to be improving, continue to monitor Hypokalemia: replaced, keep above 4 Klebsiella UTI: Urine culture on 01/31/2024 + Klebsiella, susceptible to Levaquin Patient complaining of dysuria on 02/13, was given levaquin x 2 days and d/c per DR. Cruz - repeat UA recollected today with catheterization - await culture Acute hypoxic respiratory failurepulmonary edema resolved Acute on chronic heart failure with preserved EF/HTN: - resolved, euvolemic continue meds Hx iron deficiency anemia: Continue PPI/s/p IV Venofer, continue oral iron supplements -Hemoglobin remains stable at 9.2 Hx AF Coreg on hold, remains in NSR Pressure ulcer of sacral region/unstageable Continue local wound care Prediabetes: A1c 6 on 12/2023, continue to monitor outpatient DVT prophylaxis: Subcu heparin FULL CODE PCP: Dr. Nessa Foreman Dispo: pt not yet medically stable, awaiting final urine culture, expect ready to be discharge in next 1-2 days I spent a total of 46 minutes reviewing notes, outpatient records, labs, medication, coordinating, documenting and providing care for this patient excluding time spent in the performance of separately billed services. Admission and Anticipated Discharge Date Admission Date: January 30, 2024 Supervising Physician Co-Signing Physician Notes Chart reviewed. Discussed with above provider. Blood pressure is on the lower side; patient currently unable to tolerate higher dose of Entresto. Currently on hold. Urinary retention present; tubbs placed, now renal fxn improving. Monitor BMP tomorrow am, possibly resume lasix if able. aldactone and entresto likely will need hold/gradual resume once dc'd w/ close monitoring of bmp. I have reviewed the advanced practitioner's documentation, and I agree with, and take responsibility for the plan of care time spent: 20 min. Subjective She feels well today. Reports a few episodes of diarrhea yesterday. She did force fluids yesterday. Denies f/c/s, chest pain, sob, n/v. Review of Systems Review of Systems: All systems reviewed & are unremarkable except as noted in HPI & below Physical Exam Physical Exam: Gen: WD/WN, obese, lying in bed, appears chronically ill, NAD, A&O x3 HEENT: Normocephalic, atraumatic, conjunctivae moist, sclerae anicteric, mucous membranes moist. Lung: Clear to Auscultation bilaterally, no wheezes/rales/rhonchi Heart: Regular rate, regular rhythm, no murmurs, rubs, or gallops Abdomen: obese, Soft, NT, ND +BS x 4 Extremities: No edema, weakness b/l 3/5 Skin: Warm, no rash, negative turgor. Results & Data Results & Data Vital Signs (Past 12 Hours) Vital Signs Temp Pulse Pulse Resp BP Pulse Ox O2 Del Method 02/19/24 07:41 36.4 C L 59 L 16 164/66 H 93 Room Air 02/19/24 07:13 59 L 02/19/24 03:15 36.4 C L 65 17 120/65 94 Room Air 02/18/24 23:30 37.2 C 62 16 114/69 92 Room Air 02/18/24 22:20 Room Air Laboratory Results Short CBC 02/19/24 Range/Units 06:09 WBC 8.27 (4.8-10.8) K/ul Hgb 9.2 L (12.0-16.0) g/dl Hct 28.8 L (37.0-47.0) % Plt Count 298 (130-400) K/uL BMP 02/19/24 06:09 Sodium 139 Potassium 4.2 Chloride 108 H Carbon Dioxide 25 BUN 31 H Creatinine 1.49 H Glucose 125 H Calcium 9.5 Urine 02/18/24 Range/Units 09:27 Urine Color Yellow Urine Appearance Turbid A (Clear) Urine pH 5.5 (4.5-7.5) Ur Specific [place] 1.014 (1.000-1.030) Urine Protein 2+ H (Negative) Urine Glucose (UA) Negative (Negative) Medications Administered Current Inpatient Medications Acetaminophen (Acetaminophen 500 Mg Tab) 1,000 mg PO Q8 VAN Stop: 03/01/24 10:14 Last Admin: 02/19/24 05:36 Dose: 1,000 mg Al Hydrox/Mg Hydrox/Simethicone (Aluminum/Magnesium Susp 30 Ml Udc) 15 ml PO Q4H PRN PRN Reason: Dyspepsia Stop: 02/29/24 22:31 Aspirin (Aspirin 81 Mg Ectab) 81 mg PO DAILY [facility]AN Stop: 03/01/24 08:59 Last Admin: 02/19/24 08:58 Dose: 81 mg Atorvastatin Calcium (Atorvastatin 20 Mg Tab) 20 mg PO DAILY [facility]AN Stop: 03/01/24 08:59 Last Admin: 02/19/24 08:59 Dose: 20 mg Bisacodyl (Bisacodyl 5 Mg Tabec) 10 mg PO BID [facility]AN Stop: 03/16/24 10:29 Last Admin: 02/19/24 09:11 Dose: Not Given Bisacodyl (Bisacodyl 10 Mg Supp) 10 mg AL DAILY PRN PRN Reason: Constipation Stop: 03/16/24 12:02 Last Admin: 02/16/24 14:44 Dose: 10 mg Calcitriol (Calcitriol 0.25 Mcg Capsule) 0.25 mcg PO TuTh@0900 [facility]AN Stop: 02/29/24 19:44 Last Admin: 02/18/24 08:40 Dose: 0.25 mcg Carvedilol (Carvedilol 3.125 Mg Tab) 3.125 mg PO BIDM VAN Stop: 03/06/24 16:59 Last Admin: 02/18/24 08:37 Dose: 3.125 mg Clonidine HCl (Clonidine Hcl 0.1 Mg Tab) 0.05 mg PO BID VAN Stop: 03/19/24 20:59 Last Admin: 02/19/24 08:57 Dose: 0.05 mg Docusate Sodium (Docusate Sodium 100 Mg Cap) 100 mg PO BID VAN Stop: 03/15/24 20:59 Last Admin: 02/17/24 19:38 Dose: Not Given Ferrous Sulfate (Ferrous Sulfate 325 Mg Tab) 325 mg PO QAM [facility] Stop: 03/04/24 08:59 Last Admin: 02/19/24 08:59 Dose: 325 mg Fluticasone Propionate (Fluticasone Propionate Na Spr 16 Gm Btl) 1 sprays NA DAILY [facility] Stop: 03/01/24 08:59 Last Admin: 02/19/24 09:00 Dose: 1 sprays Furosemide (Furosemide 20 Mg Tab) 60 mg PO QAM [facility]AN Stop: 03/07/24 09:29 Last Admin: 02/17/24 09:29 Dose: 60 mg Gabapentin (Gabapentin 400 Mg Cap) 400 mg PO TID VAN Stop: 03/04/24 13:59 Last Admin: 02/19/24 08:57 Dose: 400 mg Heparin Sodium (Beef Lung) (Heparin 10 Unit/Ml 5 Ml Flush) 5 ml FLUSH PRN PRN PRN Reason: Flush Stop: 03/01/24 04:10 Last Admin: 02/13/24 09:54 Dose: 5 ml Heparin Sodium (Porcine) (Heparin Sod 5,000 Unit/0.5 Ml Vial) 5,000 units SQ Q8 VAN Stop: 02/29/24 21:59 Last Admin: 02/19/24 05:35 Dose: 5,000 units Vancomycin HCl 750 mg/ (Dextrose) 265 mls @ 200 mls/hr IV Q24H VAN Stop: 02/22/24 11:00 Last Admin: 02/19/24 09:11 Dose: 200 mls/hr Isosorbide Mononitrate (Isosorbide [place] Extended Rel 30 Mg Tabcr) 30 mg PO QAM [facility]AN Stop: 03/01/24 08:59 Last Admin: 02/19/24 08:59 Dose: 30 mg Lactobacillus Acidophilus (Advanced Probiotic 625 Mg Capsule) 1,250 mg PO DAILY [facility] Stop: 03/08/24 16:59 Last Admin: 02/19/24 08:57 Dose: 1,250 mg Lorazepam (Lorazepam 0.5 Mg Tab) 0.5 mg PO TID PRN PRN Reason: Anxiety Stop: 02/29/24 19:27 Last Admin: 02/18/24 22:13 Dose: 0.5 mg Magnesium Chloride (Magnesium Chloride W/Calcium 64mg Delayed Rel Tab) 128 mg PO BID VAN Stop: 03/05/24 08:59 Last Admin: 02/19/24 08:59 Dose: 128 mg Magnesium Hydroxide (Magnesium Hydroxide Susp 30 Ml Udc) 30 ml PO Q12H PRN PRN Reason: Constipation Stop: 02/29/24 22:31 Last Admin: 02/14/24 15:14 Dose: 30 ml Melatonin (Melatonin 3 Mg Tab) 3 mg PO HS PRN PRN Reason: Sleep Stop: 03/11/24 00:41 Last Admin: 02/18/24 22:13 Dose: 3 mg Miscellaneous Information (Vancomycin Consult Active) 1 each N/A UD PRN PRN Reason: Consult Stop: 02/22/24 21:00 Ondansetron HCl (Ondansetron Inj 2 Mg/Ml 2 Ml Vial) 4 mg IV Q6H PRN PRN Reason: Nausea Stop: 02/29/24 22:31 Last Admin: 02/17/24 11:06 Dose: 4 mg Pantoprazole Sodium (Pantoprazole 40 Mg Tab) 40 mg PO BID VAN Stop: 03/07/24 20:59 Last Admin: 02/19/24 08:59 Dose: 40 mg Polyethylene Glycol (Polyethylene (Miralax) 17 Gm Pack) 17 gm PO DAILY PRN PRN Reason: Constipation Stop: 02/29/24 22:31 Last Admin: 02/14/24 21:00 Dose: 17 gm Potassium Chloride (Potassium Chloride Crtab 20 Meq Tabcr) 20 meq PO QAM VAN Stop: 03/02/24 08:59 Last Admin: 02/19/24 09:11 Dose: 20 meq Sacubitril/Valsartan (Valsartan/Sacubitril 103/97mg Tab) 1 tab PO BID VAN Stop: 03/06/24 20:59 Last Admin: 02/13/24 21:12 Dose: 1 tab Sodium Chloride (Sodium Chloride 0.65% Na Soln 45 Ml ([employer])) 2 sprays NA NOW PRN PRN Reason: Dryness Stop: 03/01/24 22:56 Last Admin: 01/31/24 23:03 Dose: 2 sprays Spironolactone (Spironolactone 25 Mg Tab) 25 mg PO DAILY [facility] Stop: 03/05/24 08:59 Last Admin: 02/13/24 09:21 Dose: 25 mg Trolamine Salicylate (Trolamine Salicylate 10% Crm 255 Appln/85 Gm Tube) 1 appln EXT TID [facility] Stop: 03/02/24 13:59 Last Admin: 02/19/24 09:01 Dose: 1 appln (4) (HFpEF) heart failure with preserved ejection fraction Heart failure chronicity: chronic Qualified Code(s): I50.32 - Chronic diastolic (congestive) heart failure
[2024-02-19] MEDS: ALUMINUM/MAGNESIUM SUSP 30 ML UDC PO PRN (21:08)
[2024-02-19 23:07] VITALS: O2SAT 96
[2024-02-20 06:36] LABS: Hematocrit (blood only) 28.8 % (37.0-47.0); Hemoglobin 9.2 g/dl (12.0-16.0); Mean Corpuscular Hemoglobin 30.7 pg (25.0-34.0); Mean Corpuscular Hgb Conc 31.9 g/dL (32.0-36.0); Platelet Count 300 K/uL (130-400); RDW Coefficient of Variation 16.6 % (11.5-14.5); RDW Standard Deviation 58.7 fL (36.4-46.3); White Blood Count 8.49 K/ul (4.8-10.8)
[2024-02-20 06:43] LABS: BUN Creatinine Ratio 22.6 (10-20); Calcium 9.8 mg/dl (8.6-10.3); Creatinine Clr Calc Pharmacy 42.2 ml/min; Potassium 4.5 mmol/L (3.5-5.1)
[2024-02-20 07:21] VITALS: BP 148/57; PULSE 54; RESP 18; TEMP 97.3
[2024-02-20] MEDS: INFLUENZA VACC TS2024-25(65y+)/PF (IIV3) 0.5mL Syr IM ONE (08:53)
--- NOTE | 2024-02-20 11:59 | Discharge Summary ---
Date of Service February 20, 2024 Admission HPI Per Admitting Provider Ms. Escobar s a 78 year old female that presented to the ED today from [facility] for further evaluation of her anemia. Her Hgb was low 7.2- 8.2. She was recently admitted to [facility] from 01/06/24 - 01/11/24 and was found to have sepsis/bacteremia and was transferred on 01/10 to [facility] where she underwent C2-C6 debridement under the care of Dr. No with neurosurgery. Cultures grew MRSA; was started on Vancomycin per ID which is to continue @ 750 mg IV daily until 02/21. She has a planned Neurosurgery f/u at [facility] on 02/11. She also has chronic lower back pain and has been complaining of worsening back pain with ambulation and working with PT. She describes the pain as sharp pain with muscle spasms. She was having episodes of lower extremity neuropathic pain. Today, a lumbar spine CT was performed results indicating severe multilevel degenerative disc disease and facet arthrosis within the lumbar spine. Suboptimal evaluation of the central canal given CT technique and artifact. If concern for epidural process, MRI is recommended. She has a complex PMH that includes:type 2 diabetes, hyperlipidemia, gout, renal artery stenosis, hypertension, chronic diastolic HFpEF, CKD stage III, GERD, morbid obesity, primary open angle glaucoma right eye moderate stage, history of MRSA infection, spinal stenosis, history of intraductal papilloma of breast, and ATILIO. She has been bedbound since 01/06/24. All PT/OT has gotten her up to ambulate, but she can not get up without assistance and she is developing a pressure ulcer from being sedentary. The abscess was pushing against her spinal cord and she has been using supplemental O2 since 01/05. No leukocytosis, Hgb 8.2, creatinine 1.23; otherwise labs unremarkable. Pt denies fever, chills, SAINI, dizziness, SOB, chest pain, palpitations, N/V/D, hematochezia, black stools, recent falls or trauma. Patient will be admitted for further evaluation and management. Please see A/P for further details. Admission Exam Per Admitting Provider General Appearance:Morbidly Obese, no apparent distress Head: normocephalic, Atraumatic Eyes: normal inspection, EOMI Neck: supple, Trachea midline, + thanh on posterior neck Respiratory/Chest: Decreased breath sounds, CTA, No accessory muscle use Cardiovascular: S1, S2, No murmur Abdomen/GI:Soft, Non tender, Bowel sounds present Extremities/Musculoskeletal:normal inspection, 2+ edema Neurologic/Psych:AAOX3, left lower extremity 2/5 otherwise grossly no focal neurological deficits Skin: normal color, warm Principal Diagnosis (1) Sacral pressure sore: (2) Neurogenic claudication due to lumbar spinal stenosis: (3) Epidural abscess: (4) (HFpEF) heart failure with preserved ejection fraction: (5) Uncontrolled hypertension: (6) GERD (gastroesophageal reflux disease): (7) Hypertension: (8) Hyperlipidemia: Discharge Exam Gen: WD/WN, obese, lying in bed, appears chronically ill, NAD, A&O x3 HEENT: Normocephalic, atraumatic, conjunctivae moist, sclerae anicteric, mucous membranes moist. Lung: Clear to Auscultation bilaterally, no wheezes/rales/rhonchi Heart: Regular rate, regular rhythm, no murmurs, rubs, or gallops Abdomen: obese, Soft, NT, ND +BS x 4 Extremities: No edema, weakness b/l 3/5 Skin: Warm, no rash, negative turgor. Discharge Data Allergies Allergy/AdvReac Type Severity Reaction Status Date / Time allopurinol Allergy Mild RASH Verified 10/01/19 09:44 Penicillins Allergy Mild HIVES Verified 10/01/19 09:44 Bactrim Allergy Unknown ANXIETY Verified 09/26/17 08:37 AND HALLUCINATION sulfamethoxazole AdvReac Intermediate ANXIETY Verified 03/23/21 20:14 AND HALLUCINATION trimethoprim AdvReac Intermediate ANXIETY Verified 03/23/21 20:14 AND HALLUCINATION Consultations 01/30/24 17:19 ED Decision to Admit Stat 01/30/24 17:49 Consult Orthopedic Spine Surgery Routine 01/30/24 18:04 Consult Cardiology Routine 02/02/24 13:17 Consult Pain Management Routine Ordered Studies 01/30/24 14:23 CT abd pelvis IV con only Stat CT for pulmonary embolism PE [CT angio chest PE protocol] Stat CT lumbar spine w con Stat 01/31/24 07:52 MR lumbar spine wo con Urgent Hospital Course (1) Sacral pressure sore: (2) Neurogenic claudication due to lumbar spinal stenosis: (3) Epidural abscess: (4) (HFpEF) heart failure with preserved ejection fraction: (5) Uncontrolled hypertension: (6) GERD (gastroesophageal reflux disease): (7) Hypertension: (8) Hyperlipidemia: Plan Addendum to yesterday's note per Meggan JACOBSON as below: Ms. Escobar s a 78 year old female with complex PMH that includes type 2 diabetes, hyperlipidemia, gout, renal artery stenosis, hypertension, chronic diastolic HFpEF, CKD stage III, GERD, morbid obesity, primary open angle glaucoma right eye moderate stage, history of MRSA infection c/b epidural abscess, spinal stenosis, history of intraductal papilloma of breast, and ATILIO that presented to the ED 01/29 from [facility] rehab for further evaluation of her anemia and acute left leg pain and weakness. As per Prior hospitalist: Patient's postop hgb has ranged Her Hgb was low 7.2-8.2. She was recently admitted to [facility] from 01/06/24 - 01/11/24 and was found to have sepsis/bacteremia and was transferred on 01/10 to [facility] where she underwent C2-C6 debridement under the care of Dr. No with neurosurgery. Cultures grew MRSA; was started on Vancomycin per ID which is to continue @ 750 mg IV daily until 02/21. She has a planned Neurosurgery f/u at [facility] on 02/11. She has been bedbound since 01/06/24. All PT/OT has gotten her up to ambulate, but she can not get up without assistance and she is developing a pressure ulcer from being sedentary. 02/02 Called Transfer Center to discuss with Neurosurgery at [place]. Concern being patient's inability to move 2/2 pain as well as dense numbness and lack of sensation to cold. Spoke to Dr. Villanueva who states he cannot be sure and stated if concerned can send patient to [facility] ED. Per outpatient charts, patient with 2/5 strength in LLE during postop at [place] (not too dissimilar to exam here). 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 She states she wishes to return to rehab when ready. Will need her follow up appointment with Dr. No of neurosurgery rescheduled. Assessment and plan: Neurogenic claudicationlumbar stenosis Ambulatory dysfunction Moderate lumbar spinal stenosis Hx epidural abscess s/p C2-6 debridement01/[address] with no acute fractures, MRI showed severe multilevel lumbar spinal stenosis Not a current surgical candidate due to treatment for recent epidural abscess, + MRSA Continue IV Vanco until 02/21 for prior abscess, continue pain management with gabapentin/clonidine AKIprerenal: Creatinine bumped to 1.3 --> 1.6 --> 1.49, baseline around 1.0, 1.1 Likely multifactorial with IV Vanco/suspect prerenal with recent increase in diuretics, diarrhea post constipation and urinary retention Entresto/Aldactone placed on hold - Continue to hold LASIX today and re eval to possible resume tomorrow - tubbs cath placed, pt encouraged to hydrated orally - repeat renal fxn in a.m. - when cr remains stable ok to resume lasix, entresto/aldactone Bradycardia intermittent bradycardia with rates in 30s-40s, no skipped beats on 02/17 hold coreg and decrease clonidine to 0.05mg bid appears to be improving, continue to monitor Hypokalemia: replaced, keep above 4 Klebsiella UTI: Urine culture on 01/31/2024 + Klebsiella, susceptible to Levaquin Patient complaining of dysuria on 02/13, was given levaquin x 2 days and d/c per DR. Cruz - repeat UA recollected today with catheterization - await culture Acute hypoxic respiratory failurepulmonary edema resolved Acute on chronic heart failure with preserved EF/HTN: - resolved, euvolemic continue meds Hx iron deficiency anemia: Continue PPI/s/p IV Venofer, continue oral iron supplements -Hemoglobin remains stable at 9.2 Hx AF Coreg on hold, remains in NSR Pressure ulcer of sacral region/unstageable Continue local wound care Prediabetes: A1c 6 on 12/2023, continue to monitor outpatient DVT prophylaxis: Subcu heparin FULL CODE PCP: Dr. Nessa Foreman Addendum 02/20/2024: Patient was seen and examined at bedside as a follow-up of following History of epidural abscess status post C2-6 debridement on 01/10, on IV vancomycin until 02/21 for prior abscess, continue pain management with gabapentin and clonidine. Patient has been made aware to continue IV vancomycin as prior. Prescription has been escribed. Acute kidney injury likely secondary to urinary retention, patient will be discharged on Tubbs catheter, patient to undergo voiding trial in 5 to 7 days at rehab facility, patient has been made aware, possible follow-up with urology if unable to take the Tubbs out. Patient advised to resume Lasix from tomorrow, patient has been made aware to have repeat BMP test in about 2 to 3 days to determine whether she can resume her Entresto and Aldactone as well at that time. She will need close monitoring by PCP or provider at rehab facility. She is aware that she needs provider evaluation within a week time upon discharge. Bradycardia: Patient with intermittent bradycardia with rates in 30s to 40s, Coreg has been held and clonidine has been decreased. Patient has been made aware. Patient to follow-up with cardiology in 2 to 4 weeks time upon discharge. Patient is being discharged to SNF with following instruction at the point of discharge: Follow-up with your PCP in the next week after discharge. Follow-up with neurosurgery within 2 weeks after discharge. Return back to the ED with worsening symptoms. Continue your IV vancomycin until 02/21 as prescribed prior. Follow-up with your cardiology in 2 to 4 weeks time upon discharge. Due to your acute renal injury, your Lasix, Entresto and Aldactone were on hold. You can resume your Lasix from tomorrow as discussed at bedside, you will need repeat BMP in about 2 to 3 days and if kidney functions are improving, you can resume your Entresto and Aldactone at that point with close monitoring of BMP afterwards. You will need follow-up with your PCP office within a week time. Because of your decreased heart rate, your Coreg has been discontinued and your clonidine has been decreased to 0.05 Mg twice a day. You received Tubbs catheter because of urinary retention, you will be discharged on Tubbs catheter, you will need voiding trial in about 5 to 7 days which can be done at rehab. If unable to take the Tubbs catheter out, you will need follow- up with urology. Take your medications as prescribed. [facility] Attestation I certify that this patient is under my care and that I, or a physicians clinic assistant working with me, had a face to-face encounter that meets the [id number] encounter requirements with this patient. The encounter with the patient was in whole, or in part, for the following medic al condition, which is the primary reason for home health care (list medical condition): I certify that, based on my findings, the following services are medically necessary home health services: My clinical findings support the need for the above services because: Further, I certify that my clinical findings support that this patient is homebound (i.e. absences from home require considerable and taxing effort and are for medical reasons or adventism services or infrequently or of short duration when for other reasons) because: Certification for Home Health Services: Based on the above findings, I certify that this patient is confined to the home and needs intermittent correction care, physical therapy and/or speech therapy or continues to need occupational therapy. The patient is under my care, and I have initiated the establishment of the plan of care. This patient will be followed by a physician who will periodically review the plan of care. Total Time Total Time Spent Total Time Spent (In Minutes): 45 Discharge Plan Discharge Items Patient Disposition: Transfer [facility] Reason For Visit: HYPOXIA/BACK PAIN Discharge Diagnosis: (1) Sacral pressure sore: (2) Neurogenic claudication due to lumbar spinal stenosis: (3) Epidural abscess: (4) (HFpEF) heart failure with preserved ejection fraction: (5) Uncontrolled hypertension: (6) GERD (gastroesophageal reflux disease): (7) Hypertension: (8) Hyperlipidemia: Condition on Discharge: Good Activity: Resume your previous activity Non-emergency contact: Primary Care Provider Call non-emergency contact if: you have any medication questions and your pain is concerning for you Follow-up/Referrals: Nessa Foreman MD [Primary Care Provider] - Magan No MD [Outside Practitioners] - Diet: Heart Healthy Addtl Attending Provider Instructions: Follow-up with your PCP in the next week after discharge. Follow-up with neurosurgery within 2 weeks after discharge. Return back to the ED with worsening symptoms. Continue your IV vancomycin until 02/21 as prescribed prior. Follow-up with your cardiology in 2 to 4 weeks time upon discharge. Due to your acute renal injury, your Lasix, Entresto and Aldactone were on hold. You can resume your Lasix from tomorrow as discussed at bedside, you will need repeat BMP in about 2 to 3 days and if kidney functions are improving, you can resume your Entresto and Aldactone at that point with close monitoring of BMP afterwards. You will need follow-up with your PCP office within a week time. Because of your decreased heart rate, your Coreg has been discontinued and your clonidine has been decreased to 0.05 Mg twice a day. You received Tubbs catheter because of urinary retention, you will be discharged on Tubbs catheter, you will need voiding trial in about 5 to 7 days which can be done at rehab. If unable to take the Tubbs catheter out, you will need follow- up with urology. Take your medications as prescribed. Pending Studies at Discharge: No Stand-Alone Forms: My [facility] Skilled Items Patient informed of condition?: Yes DNR: No Discharge Level of Care: Skilled Communicable Disease: No Discharge Prognosis: Stable Lines: PICC Urinary Catheter: No Medications and DC Order Prescriptions: New gabapentin 400 mg Capsule 400 mg PO TID Qty: 90 0RF potassium chloride 20 mEq Tablet,Er Particles/Crystals 20 meq PO QAM Qty: 40 0RF pantoprazole 40 mg Tablet,Delayed Release (Dr/Ec) 40 mg PO BID Qty: 30 0RF ferrous sulfate 325 mg (65 mg iron) Tablet,Delayed Release (Dr/Ec) 325 mg PO QAM Qty: 30 0RF clonidine HCl 0.1 mg Tablet 0.05 mg PO BID Qty: 15 0RF spironolactone 25 mg Tablet 25 mg PO DAILY Qty: 30 0RF Rx Instructions: Resume as prescribed when renal function is better in BMP done on 02/23/24. Entresto 97-103 mg Tablet 1 tab PO BID Qty: 60 0RF Rx Instructions: Resume as prescribed when renal function is better in BMP done on 02/23/24. vancomycin 750 mg recon soln 750 mg IV Q24H 3 Days Qty: 3 0RF Continued atorvastatin 20 mg tablet 20 mg PO DAILY lorazepam 0.5 mg tablet 0.5 mg PO TID PRN (Reason: Anxiety) fluticasone propionate 50 mcg/actuation spray,suspension 1 spray INTRANASAL DAILY calcitriol 0.25 mcg capsule 0.25 mcg PO UD Rx Instructions: once daily on saturday and Ozempic 1 mg/dose (4 mg/3 mL) pen injector 1 mg SUBCUT WK Hold Instructions: resume as directed on discharge aspirin 81 mg Tablet,Delayed Release (Dr/Ec) 81 mg PO DAILY furosemide 20 mg Tablet 60 mg PO DAILY Hold Instructions: assess fluid status isosorbide mononitrate 30 mg Tablet Extended Release 24 Hr 30 mg PO QAM Qty: 0 0RF heparin, porcine (PF) 5,000 unit/0.5 mL Syringe 5,000 unit subcut Q8 Qty: 0 0RF acetaminophen [Tylenol Extra Strength] 500 mg Tablet 1,000 mg PO TID Qty: 0 0RF Vancomycin Consult Active [Consult] 1 ea Not Applicable UD PRNQty: 0 0RF Held tramadol 50 mg tablet 50 mg PO Q8H PRN (Reason: Severe Pain (Scale Score 7-10)) Qty: 0 0RF Hold Instructions: unless needed at snf Discontinued omeprazole 20 mg Capsule,Delayed Release(Dr/Ec) 20 mg PO DAILY losartan 100 mg Tablet 100 mg PO DAILY carvedilol 25 mg Tablet 25 mg PO BIDM Qty: 0 0RF clonidine HCl 0.1 mg Tablet 0.1 mg PO Q8H PRNQty: 0 0RF clonidine HCl 0.1 mg Tablet 0.1 mg PO BID Qty: 0 0RF gabapentin 400 mg capsule 400 mg PO BID Qty: 0 0RF Rx Instructions: 800mg in am and 400mg in pm amlodipine 5 mg tablet 10 mg PO DAILY Qty: 0 0RF Discharge Orders: Discharge Order (Routine); Ordered 02/20/24 Ordered By: Marty Zhu Admission Data Admit Date/Time: 01/30/24 17:24 Attending Provider: Marty Zhu Admit Provider: Severo Winn Primary Care Provider: Nessa Foreman Other Providers: [facility]; Severo Winn; Bradley Iqbal; Karen Bhatti; [facility]
== END 2024-02-20 12:20 | DRG 291 ==
LOC: ED 13:00 → 2S 17:24 → SUATTDRO 17:24 → 2S 22:43 → 2W 02-06 19:05